=== PATIENT | male | born 1960 | race Caucasian/White ===

== ENCOUNTER 2017-10-28 20:21 | Observation (INO) | payer SELFPAY ==
[2017-10-28] MEDS ORDERED: METOPROLOL TAR 25 MG TAB ONE (20:53)
[2017-10-28] MEDS ORDERED: ASPIRIN 81 MG CHEWABLE TABLET ONE (20:53)
[2017-10-28] MEDS ORDERED: ENOXAPARIN 80 MG/0.8 ML SQ ONE (20:54)
[2017-10-28] MEDS ORDERED: GLUCAGON 1 MG/VIAL IM PRN (20:54)
[2017-10-28] MEDS ORDERED: D50W 25 GM/50 ML SYRINGE IV PRN (20:54)
[2017-10-28] MEDS ORDERED: NA CHLORIDE 0.9% 1,000 ML ONE (20:54)
[2017-10-28 20:57] LABS: Absolute Lymphocytes (CBC) 2.1 K/uL (0.7-4.9); Absolute Neutrophil 7.6 K/uL (1.8-8.0); Basophils % 0.9 % (0-1.3); Eosinophils % 0.6 % (0-4.4); Hematocrit 45.5 % (39.6-49.0); Lymphocytes % 19.2 % (15.3-44.8); MCH 31.5 pg (27.0-35.0); MCV 90.2 fL (80-100); MPV 9.4 fL (7.6-11.3); Monocytes % 9.1 % (3.3-12.3); RBC Red Blood Cell Count 5.04 M/uL (4.33-5.43)
[2017-10-28] MEDS ORDERED: INSULIN -REGULAR HUMAN 50 UNIT/0.5 ML ML SQ SCH (21:00)
[2017-10-28 21:02] LABS: Protime INR 1.01
[2017-10-28] MEDS ORDERED: LISINOPRIL 10 MG TAB ONE (21:02)
[2017-10-28] MEDS ORDERED: FAMOTIDINE 20 MG/2 ML VIAL IV ONE (21:02)
[2017-10-28 21:21] LABS: Albumin 3.9 g/dL (3.4-5.0); Bilirubin Direct 0.1 mg/dL (0-0.2); Bilirubin Total 0.3 mg/dL (0.2-1.0); Magnesium 2.3 mg/dL (1.8-2.4); Potassium 3.8 mmol/L (3.5-5.1); Protein, Total 7.7 g/dL (6.4-8.2); Troponin (Emerg Dept Use Only) 0.03 ng/mL (0.0-0.045)
--- NOTE | 2017-10-28 21:52 | ER ---
Nurse's Notes [facility] Unit Name: Lincoln Espinal Age: 57 yrs Sex: Male : 1960 Arrival Date: 10/28/2017 Time: 20:33 Bed 6 Private MD: Diagnosis: Type 1 diabetes mellitus;Essential (primary) hypertension;Chest pain, unspecified Presentation: 10/28 20:33 Presenting complaint: Patient states: low blood sugar, chest pain, left arm pain and ak1 neck cramps X2 weeks. pt sees Dr. Ferreira. pt stated he eats every 2 hours but does not check his blood sugar. pt stated he takes his insulin at 0400 and 1600 daily. Transition of care: patient was not received from another setting of care. Onset of symptoms is unknown. Risk Assessment: Do you want to hurt yourself or someone else? Patient reports no desire to harm self or others. Initial Sepsis Screen: Does the patient meet any 2 criteria? No. Patient's initial sepsis screen is negative. Does the patient have a suspected source of infection? No. Patient's initial sepsis screen is negative. Care prior to arrival: None. 20:33 Method Of Arrival: EMS: [facility] ak1 20:33 Acuity: KULDIP 3 ak1 Triage Assessment: 20:36 General: Appears in no apparent distress. Behavior is calm, cooperative. Pain: ak1 Complains of pain in chest and left arm. EENT: No signs and/or symptoms were reported regarding the EENT system. Neuro: Level of Consciousness is awake, alert, obeys commands, Oriented to person, place, time, situation, Synoptic Meteorologist are equal bilaterally Moves all extremities. Gait is steady, Speech is normal. Cardiovascular: Reports chest pain, Denies nausea, vomiting. Respiratory: No deficits noted. GI: No signs and/or symptoms were reported involving the gastrointestinal system. : No signs and/or symptoms were reported regarding the genitourinary system. Derm: No signs and/or symptoms reported regarding the dermatologic system. Musculoskeletal: Reports pain in neck, left arm, chest. Historical: - Allergies: 20:36 No Known Allergies; ak1 - Home Meds: 21:09 Novolin 70/30 [place] 20 units at 0400 and 10 units 1600 daily Sub-Q [Active]; mw - PMHx: 21:09 Diabetes - IDDM; Hypertension; Hepatitis; - PSHx: 21:09 Tonsillectomy; Hernia repair; - Immunization history:: Adult Immunizations unknown. - Social history:: Smoking status: unknown Patient uses street drugs, marijuana. - Ebola Screening: : No symptoms or risks identified at this time. - Family history:: not pertinent. Screenin:40 Abuse screen: Denies threats or abuse. Denies injuries from another. Nutritional ak1 screening: No deficits noted. Tuberculosis screening: No symptoms or risk factors identified. Fall Risk None identified. Assessment: 20:38 Reassessment: Patient appears in no apparent distress at this time. see triage ak1 assessment. Pain: Denies pain. Pain radiates to left arm and chest Pain began 2 weeks. 21:10 Reassessment: Patient appears in no apparent distress at this time. No changes from previously documented assessment. Patient and/or family updated on plan of care and expected duration. Pain level reassessed. Patient is alert, oriented x 3, equal unlabored respirations, skin warm/dry/pink. Patient states feeling better. pt denies pain at this time. . 21:44 Reassessment: Patient appears in no apparent distress at this time. No changes from ak1 previously documented assessment. Patient and/or family updated on plan of care and expected duration. Pain level reassessed. Patient is alert, oriented x 3, equal unlabored respirations, skin warm/dry/pink. dr. witt at the bedside. Vital Signs: 20:36 BP 147 / 103; Pulse 87; Resp 18; Temp 100.3; Pulse Ox 98% on R/A; Weight 78.02 kg (R); ak1 Height 5 ft. 10 in. (177.80 cm) (R); Pain 0/10; 21:47 BP 158 / 95; Pulse 77; Resp 18; Temp 98.5(O); Pulse Ox 97% on R/A; Pain 0/10; ak1 20:36 Body Mass Index 24.68 (78.02 kg, 177.80 cm) ak1 ED Course: 20:33 Patient arrived in ED. rv 20:33 Graciela Lopez, RN is Primary Nurse. ak1 20:35 Randall Sanford MD is Attending Physician. [facility] 20:36 Triage completed. ak1 20:36 Arm band placed on Patient placed on pulse oximetry. EKG completed in triage. Results ak1 shown to MD. 20:39 Initial lab(s) drawn, by me, sent to lab. EKG done, by ED staff. Inserted saline lock: ak1 20 gauge in right antecubital area, using aseptic technique. ,using aseptic technique. placed by EMS. Patient maintains SpO2 saturation greater than 95% on room air. 20:40 Patient has correct armband on for positive identification. Bed in low position. Call ak1 light in reach. Side rails up X2. awake overnight monitor on. Pulse ox on. NIBP on. 20:59 X-ray completed. Portable x-ray completed in exam room. Patient tolerated procedure az well. 21:03 XRAY Chest (1 view) In Process Unspecified. EDMS 21:09 No provider procedures requiring assistance completed. mw 21:49 Patient admitted, IV remains in place. ak1 21:51 Maya Roca MD is Hospitalizing Provider. yuni Administered Medications: 20:53 Drug: NS 0.9% 500 ml Route: IV; Rate: bolus; Site: right antecubital; ak1 21:44 Follow up: IV Status: Completed infusion ak1 20:54 Drug: Aspirin Chewable Tablet 324 mg Route: PO; ak1 21:16 Follow up: Response: No adverse reaction ak1 20:54 Drug: Lopressor 25 mg Route: PO; ak1 21:16 Follow up: Response: No adverse reaction ak1 20:54 Drug: Lovenox 1 mg/kg Route: Sub-Q; Site: right lower abdomen; ak1 21:17 Follow up: Response: No adverse reaction ak1 21:00 Drug: Lisinopril 10 mg Route: PO; ak1 21:16 Follow up: Response: No adverse reaction ak1 21:01 Drug: Pepcid 20 mg Route: IVP; Site: right antecubital; ak1 21:17 Follow up: Response: No adverse reaction ak1 21:44 Drug: NS 0.9% 1000 ml Route: IV; Rate: 125 ml/hr; Site: right antecubital; ak1 22:16 Follow up: IV Status: Infusion continued upon admission ak1 Point of Care Testing: Blood Glucose: 20:39 Blood Glucose: 251 mg/dL; ak1 Ranges: Outcome: 21:49 Admitted to [facility] accompanied by tech, via wheelchair, with chart. ak1 21:49 Condition: stable 21:49 Instructed on the need for admit. 21:51 Decision to Hospitalize by Provider. yuni 22:36 Patient left the ED. ak1 Signatures: Dispatcher [employer] EDMS Ariana Lopez RN Randall Taylor MD MD cha Krenek, Amber, RN RN ak1 Shon Fox RN RN rv Zavala, Araceli az
--- NOTE | 2017-10-28 21:52 | RAD REPORT ---
EXAM DESCRIPTION: RAD - Chest Single View - 10/28/2017 9:03 pm CLINICAL HISTORY: Chest pain COMPARISON: April 2011 TECHNIQUE: AP portable chest image was obtained 4 hours . FINDINGS: Lungs are clear. Heart and vasculature are normal. No measurable pleural effusion and no p neumothorax. No gross bony abnormality seen. No acute aortic findings suspected. IMPRESSION: No acute cardiopulmonary process. No significant interval change.
--- NOTE | 2017-10-28 21:52 | EDPHYS ---
Physician Documentation [facility] Name: Lincoln Espinal Age: 57 yrs Sex: Male : 1960 Arrival Date: 10/28/2017 Time: 20:33 Bed 6 Private MD: ED Physician Randall Sanford HPI: 10/28 20:46 This 57 yrs old Male presents to ER via EMS with complaints of Chest Pain. [facility] 20:46 The patient or guardian reports chest pain that is located primarily in the anterior [facility] chest wall. Onset: just prior to arrival. The pain radiates to left arm. Associated signs and symptoms: The patient has no apparent associated signs or symptoms. The chest pain is described as squeezing. Duration: The patient or guardian reports multiple episodes, that have now resolved, with no pattern. Modifying factors: The symptoms are alleviated by nothing. the symptoms are aggravated by nothing. Severity of pain: At its worst the pain was mild moderate in the emergency department the pain has resolved. The patient has not experienced similar symptoms in the past. Historical: - Allergies: 20:36 No Known Allergies; ak1 - Home Meds: 21:09 Novolin 70/30 [place] 20 units at 0400 and 10 units 1600 daily Sub-Q [Active]; mw - PMHx: 21:09 Diabetes - IDDM; Hypertension; Hepatitis; mw - PSHx: 21:09 Tonsillectomy; Hernia repair; mw - Immunization history:: Adult Immunizations unknown. - Social history:: Smoking status: unknown Patient uses street drugs, marijuana. - Ebola Screening: : No symptoms or risks identified at this time. - Family history:: not pertinent. ROS: 20:46 Constitutional: Negative for fever, chills, and weight loss, Eyes: Negative for injury, yuni pain, redness, and discharge, ENT: Negative for injury, pain, and discharge, Neck: Negative for injury, pain, and swelling, Respiratory: Negative for shortness of breath, cough, wheezing, and pleuritic chest pain, Abdomen/GI: Negative for abdominal pain, nausea, vomiting, diarrhea, and constipation, Back: Negative for injury and pain, : Negative for injury, bleeding, discharge, and swelling, MS/Extremity: Negative for injury and deformity, Skin: Negative for injury, rash, and discoloration, Neuro: Negative for headache, weakness, numbness, tingling, and seizure, Psych: Negative for depression, anxiety, suicide ideation, homicidal ideation, and hallucinations, Allergy/Immunology: Negative for hives, rash, and allergies, Endocrine: Negative for neck swelling, polydipsia, polyuria, polyphagia, and marked weight changes, Hematologic/Lymphatic: Negative for swollen nodes, abnormal bleeding, and unusual bruising. 20:46 Cardiovascular: Positive for chest pain. Exam: 20:46 Constitutional: This is a well developed, well nourished patient who is awake, alert, yuni and in no acute distress. Head/Face: Normocephalic, atraumatic. Eyes: Pupils equal round and reactive to light, extra-ocular motions intact. Lids and lashes normal. Conjunctiva and sclera are non-icteric and not injected. Cornea within normal limits. Periorbital areas with no swelling, redness, or edema. ENT: Nares patent. No nasal discharge, no septal abnormalities noted. Tympanic membranes are normal and external auditory canals are clear. Oropharynx with no redness, swelling, or masses, exudates, or evidence of obstruction, uvula midline. Mucous membranes moist. Neck: Trachea midline, no thyromegaly or masses palpated, and no cervical lymphadenopathy. Supple, full range of motion without nuchal rigidity, or vertebral point tenderness. No Meningismus. Chest/axilla: Normal chest wall appearance and motion. Nontender with no deformity. No lesions are appreciated. Cardiovascular: Regular rate and rhythm with a normal S1 and S2. No gallops, murmurs, or rubs. Normal PMI, no JVD. No pulse deficits. Respiratory: Lungs have equal breath sounds bilaterally, clear to auscultation and percussion. No rales, rhonchi or wheezes noted. No increased work of breathing, no retractions or nasal flaring. Abdomen/GI: Soft, non-tender, with normal bowel sounds. No distension or tympany. No guarding or rebound. No evidence of tenderness throughout. Back: No spinal tenderness. No costovertebral tenderness. Full range of motion. Male : Normal genitalia with no discharge or lesions. Skin: Warm, dry with normal turgor. Normal color with no rashes, no lesions, and no evidence of cellulitis. MS/ Extremity: Pulses equal, no cyanosis. Neurovascular intact. Full, normal range of motion. Neuro: Awake and alert, GCS 15, oriented to person, place, time, and situation. Cranial nerves II-XII grossly intact. Motor strength 5/5 in all extremities. Sensory grossly intact. Cerebellar exam normal. Normal gait. Psych: Awake, alert, with orientation to person, place and time. Behavior, mood, and affect are within normal limits. Vital Signs: 20:36 BP 147 / 103; Pulse 87; Resp 18; Temp 100.3; Pulse Ox 98% on R/A; Weight 78.02 kg (R); ak1 Height 5 ft. 10 in. (177.80 cm) (R); Pain 0/10; 21:47 BP 158 / 95; Pulse 77; Resp 18; Temp 98.5(O); Pulse Ox 97% on R/A; Pain 0/10; ak1 20:36 Body Mass Index 24.68 (78.02 kg, 177.80 cm) ak1 MDM: 20:35 Patient medically screened. [facility] 20:48 Data reviewed: vital signs, lab test result(s), EKG, radiologic studies, plain films. [facility] 10/28 20:35 Order name: Basic Metabolic Panel; Complete Time: 21:22 [facility] 10/28 20:35 Order name: CBC with Diff; Complete Time: 21:09 [facility] 10/28 20:35 Order name: LFT's; Complete Time: 21:22 [facility] 10/28 20:35 Order name: Magnesium; Complete Time: 21:22 [facility] 10/28 20:35 Order name: NT PRO-BNP; Complete Time: 21:22 [facility] 10/28 20:35 Order name: PT-INR; Complete Time: 21:09 [facility] 10/28 20:35 Order name: Troponin (emerg Dept Use Only); Complete Time: 21:22 [facility] 10/28 20:35 Order name: Lipase; Complete Time: 21:22 [facility] 10/28 20:35 Order name: UDS [facility] 10/28 20:46 Order name: Blood Culture Adult (2) [facility] 10/28 20:46 Order name: Flu [facility] 10/28 20:46 Order name: Urine Culture [facility] 10/28 22:07 Order name: Urine Dipstick--Ancillary (enter results) mw2 10/28 22:10 Order name: Urine Dipstick-Ancillary EDMS 10/28 20:35 Order name: XRAY Chest (1 view) [facility] 10/28 20:35 Order name: EKG; Complete Time: 20:36 [facility] 10/28 20:35 Order name: Cardiac monitoring; Complete Time: 20:55 [facility] 10/28 20:35 Order name: EKG - Nurse/Tech; Complete Time: 20:39 [facility] 10/28 20:35 Order name: IV Saline Lock; Complete Time: 20:39 [facility] 10/28 20:35 Order name: Labs collected and sent; Complete Time: 20:39 [facility] 10/28 20:35 Order name: O2 Per Protocol; Complete Time: 20:39 [facility] 10/28 20:35 Order name: O2 Sat Monitoring; Complete Time: 20:39 [facility] 10/28 20:55 Order name: CONS Physician Consult EDMS Administered Medications: 20:53 Drug: NS 0.9% 500 ml Route: IV; Rate: bolus; Site: right antecubital; ak1 21:44 Follow up: IV Status: Completed infusion ak1 20:54 Drug: Aspirin Chewable Tablet 324 mg Route: PO; ak1 21:16 Follow up: Response: No adverse reaction ak1 20:54 Drug: Lopressor 25 mg Route: PO; ak1 21:16 Follow up: Response: No adverse reaction ak1 20:54 Drug: Lovenox 1 mg/kg Route: Sub-Q; Site: right lower abdomen; ak1 21:17 Follow up: Response: No adverse reaction ak1 21:00 Drug: Lisinopril 10 mg Route: PO; ak1 21:16 Follow up: Response: No adverse reaction ak1 21:01 Drug: Pepcid 20 mg Route: IVP; Site: right antecubital; ak1 21:17 Follow up: Response: No adverse reaction ak1 21:44 Drug: NS 0.9% 1000 ml Route: IV; Rate: 125 ml/hr; Site: right antecubital; ak1 22:16 Follow up: IV Status: Infusion continued upon admission ak1 Point of Care Testing: Blood Glucose: 20:39 Blood Glucose: 251 mg/dL; ak1 Ranges: Critical Glucose Levels:Adult <50 mg/dl or >400 mg/dl <40 mg/dl or >180 mg/dl Disposition: 10/28/17 21:51 Hospitalization ordered by Maya Roca for Observation. Preliminary diagnosis are Type 1 diabetes mellitus, Essential (primary) hypertension, Chest pain, unspecified. - Bed requested for Telemetry/MedSurg (observation). - Status is Observation. ak1 - Condition is Fair. - Problem is new. - Symptoms have improved. UTI on Admission? No Signatures: Dispatcher [employer] EDMS Ariana Lopez RN CAROLA Sanford, MD MD yuni Pereira Amber, RN RN ak1 [place] LakshmiCandie mw2 Corrections: (The following items were deleted from the chart) 22:00 21:51 Hospitalization Ordered by Maya Roca MD for Observation. Preliminary mw2 diagnosis is Type 1 diabetes mellitus; Essential (primary) hypertension; Chest pain, unspecified. Bed requested for Telemetry/MedSurg (observation). Status is Observation. Condition is Fair. Problem is new. Symptoms have improved. UTI on Admission? No. yuni 22:36 22:00 10/28/2017 21:51 Hospitalization Ordered by Maya Roca MD for Observation. ak1 Preliminary diagnosis is Type 1 diabetes mellitus; Essential (primary) hypertension; Chest pain, unspecified. Bed requested for Telemetry/MedSurg (observation). Status is Observation. Condition is Fair. Problem is new. Symptoms have improved. UTI on Admission? No. mw2
--- NOTE | 2017-10-28 22:02 | P.HP ---
Certification for Inpatient Patient admitted to: Observation With expected LOS: <2 Midnights Practitioner: I am a practitioner with admitting privileges, knowledge of patient current condition, hospital course, and medical plan of care. Services: Services provided to patient in accordance with Admission requirements found in Title 42 Section 412.3 of the Code of Federal Regulations Patient History Date of Service: 10/28/17 Reason for admission: Chest pain History of Present Illness: Mr Espinal is a 57-year-old male with history of IDDM, hypertension, who this afternoon when he was mowing his yard start feeling substernal chest pain, radiated to his left and neck. He states that it was a tightness pain in his chest. He denied any nausea, vomiting, shortness of breath or dizziness associated with the pain. Intensity was 1-2/10. At the time of my encounter, the patient was chest pain-free. Initial troponin I is negative, EKG shows nonspecific ST-T abnormalities. Allergies No Known Allergies Allergy (Unverified 05/03/11 15:04) Home medications list reviewed: Yes - Past Medical/Surgical History -: Hypertension -: IDDM -: Tonsillectomy -: Hernia repair - Family History Family History: Reviewed- Non-Contributory - Social History Smoking Status: Never smoker Alcohol use: No CD- Drugs: Yes Place of Residence: Home Review of Systems 10-point ROS is otherwise unremarkable Physical Examination - Physical Exam General: Alert, In no apparent distress HEENT: Atraumatic, PERRLA, Mucous membr. moist/pink, EOMI, Sclerae nonicteric Neck: Supple, 2+ carotid pulse no bruit, No LAD, Without JVD or thyroid abnormality Respiratory: Clear to auscultation bilaterally, Normal air movement Cardiovascular: Regular rate/rhythm, Normal S1 S2 Gastrointestinal: Normal bowel sounds, No tenderness Musculoskeletal: No tenderness Integumentary: No rashes Neurological: Normal speech, Normal strength at 5/5 x4 extr, Normal tone, Normal affect Lymphatics: No axilla or inguinal lymphadenopathy - Studies Laboratory Data (last 24 hrs) 10/28/17 20:28: PT 11.9, INR 1.01 10/28/17 20:28: WBC 10.8, Hgb 15.9, Hct 45.5, Plt Count 315 10/28/17 20:28: Sodium 139, Potassium 3.8, BUN 21 H, Creatinine 1.00, Glucose 262 H, Magnesium 2.3, Total Bilirubin 0.3, AST 28, ALT 55, Alkaline Phosphatase 87, Lipase 163 Assessment and Plan - Plan Assessment: 1. Chest pain 2. IDDM 3. Hypertension Plan: Will admit the patient to the hospital under observation due to chest pain in order to rule out acute coronary syndrome. So far initial troponin I is negative, EKG shows nonspecific ST segment abnormality. Will order echo, lipid profile, aspirin, beta-johnathan to control his blood pressure, serial cardiac enzymes and EKG. Consult Cardiology for evaluation and recommendation - Advance Directives Does patient have a Living Will: No Does patient have a Durable POA for Healthcare: No - Code Status/Comfort Care Code Status Assessed: Yes Code Status: Full Code
[2017-10-28 22:10] LABS: Urine Blood NEGATIVE (NEG); Urine Glucose TRACE (NEG); Urine Protein 1+ (NEG); Urine Specific Gravity >1.030 (1.005-1.030)
[2017-10-28] MEDS ORDERED: ACETAMINOPHEN 500 MG TAB PO PRN (22:19)
[2017-10-28 22:33] LABS: Barbiturates NEGATIVE (NEGATIVE); Benzodiazepines NEGATIVE (NEGATIVE); Cocaine NEGATIVE (NEGATIVE); METHAMPHETAM NEGATIVE (NEGATIVE); Methadone NEGATIVE (NEGATIVE); Opiates NEGATIVE (NEGATIVE); Phencyclidine NEGATIVE (NEGATIVE); THC Cannibis POSITIVE (NEGATIVE)
[2017-10-28 22:46] VITALS: TEMP 98.5; O2SAT 97
[2017-10-29] MEDS ORDERED: ALPRAZOLAM 0.25 MG TABLET PO ONE
[2017-10-29 00:12] VITALS: BMI 25.0
[2017-10-29] MEDS: INSULIN -REGULAR HUMAN 50 UNIT/0.5 ML ML SQ SCH ×3 (06:00→12:00)
[2017-10-29 06:59] LABS: Troponin I 0.03 ng/mL (0.0-0.045)
[2017-10-29] MEDS ORDERED: INSULIN GLARGINE 100 UNITS/ML SQ SCH (08:00)
[2017-10-29] MEDS ORDERED: ENOXAPARIN 40 MG/0.4 ML SQ SCH (09:00)
[2017-10-29] MEDS ORDERED: METOPROLOL TAR 50 MG TAB PO SCH (09:00)
[2017-10-29] MEDS ORDERED: ASPIRIN EC 81 MG TAB PO SCH (09:00)
[2017-10-29] MEDS ORDERED: LISINOPRIL 10 MG TAB PO SCH (09:00)
--- NOTE | 2017-10-29 11:49 | EKG ---
Test Date: 2017-10-28 Test Time: 20:30:04 Kiln Cleaner: FLORES MEASUREMENT RESULTS: Intervals: Rate: 82 AK: 198 QRSD: 88 QT: 364 QTc: 425 [place]: P: 69 AK: 198 QRS: -11 T: 54 INTERPRETIVE STATEMENTS: Normal sinus rhythm Possible Left atrial enlargement Anteroseptal infarct, age undetermined Abnormal ECG Compared to ECG 05/03/2011 21:29:21 Myocardial infarct finding now present First degree AV block no longer present Electronically Signed On 10-29-17 11:46:33 CDT by Arnaud Espinoza
[2017-10-29 12:05] VITALS: BP 145/91
--- NOTE | 2017-10-29 12:30 | P.DS ---
Admission Date: 10/28/17 Discharge Date: 10/29/17 Primary Care Provider: Dr. Ferreira Disposition: ROUTINE DISCHARGE Discharge Condition: GOOD Reason for Admission: Chest pain Consultations: Cardiology: Dr. Espinoza Procedures: Cardiac Stress test: COMPARISON: None. TECHNIQUE: The patient was administered 10.8 mCi of Tc 99m Sestamibi prior to resting SPECT imaging of the heart. The patient was then administered 31.1 mCi of Tc 99m Sestamibi following exercise or pharmacologic stress. Multiplanar SPECT images were reviewed. FINDINGS: The end diastolic volume is 108 ml, the end systolic volume is 47 ml , and the ejection fraction is 57 %. No stress-induced ischemia is identifiable. Patient has a large fixed defect along the inferior wall extending into the septum. This does not change between rest and stress imaging. This may be in part due to attenuation artifact from the diaphragm. Scarring is suspected for most of this defect. IMPRESSION: No stress-induced ischemia. Large fixed defect along the inferior wall and inferoseptal wall. This is probably a combination of scarring and diaphragm attenuation. End-diastolic volume is only minimally enlarged at 108 milliliters. Ejection fraction is normal at 57%. Medical Problem List: Chest pain HTN, uncontrolled, new diagnosis DM Type 2, insulin dependent Hyperlipidemia THC use GERD, suspected Brief History of Present Illness: 57 yo CM presented to the ER with chest pain. He was found to have elevated BP. He was admitted for further evaluation. Hospital Course: Patient presented to the ER with chest pain. He was found to have elevated BP. Cardiac enzymes remained normal. Patient was evaluated by Cardiology. ECHO and Cardiac stress test performed. Cardiac stress test did not indicate any stress induced ischemia. No further cardiac intervention was required. At discharge he will continue with ASA 81 mg daily. Recommendation is for the patient to follow up with his PCP to further address. His Chest pain maybe related to uncontrolled HTN. He was not taking medication for this. He was started on medication. His BP improved. At discharge he will continue with Lisinopril 20 mg one pill once daily and Metoprolol 25 mg one pill twice daily. Recommendation is to maintain BP less than 150/80. Further adjustment in medication may be required by his PCP. Patient has DM. He is insulin dependent. At discharge, he will continue with his medication-Insulin 70/30 20 units sc every am and 10 units sc every pm. Recommendation is to maintain BS less than 140 fasting and less than 200 after meals. Further adjustment may be addressed by his PCP. Patient likely has GERD. At discharge, he will continue with Protonix 40 mg one pill daily. Recommendation is for the patient to see GI as outpatient to further address. Patient admits to THC use. Cessation was addressed. He plans to cut down on this. Patient has mild Hyperlipidemia. He will need to continue with dietary and lifestyle modifications. This will need to be monitored and addressed by his PCP. Patient may require medication in the future. Vital Signs/Physical Exam: Temp Pulse Resp BP Pulse Ox 98.5 F 61 18 145/91 H 97 10/29/17 04:00 10/29/17 12:02 10/29/17 04:00 10/29/17 12:02 10/29/17 04:00 General: Alert, In no apparent distress, Oriented x3, Cooperative HEENT: Atraumatic, Mucous membr. moist/pink Neck: Supple, No Thyromegaly Respiratory: Clear to auscultation bilaterally, Normal air movement Cardiovascular: Normal pulses, Regular rate/rhythm Gastrointestinal: Normal bowel sounds, Soft and benign, Non-distended, No tenderness, No masses, No rebound, No guarding Musculoskeletal: No erythema, No tenderness, No warmth Integumentary: No tenderness/swelling, No erythema, No warmth, No cyanosis Neurological: Normal speech, Normal strength at 5/5 x4 extr, Normal tone, Normal affect Lymphatics: No axilla or inguinal lymphadenopathy Laboratory Data at Discharge: WBC 10.8 K/uL (4.3-10.9) 10/28/17 20:28 Hgb 15.9 g/dL (13.6-17.9) 10/28/17 20:28 Hct 45.5 % (39.6-49.0) 10/28/17 20:28 Plt Count 315 K/uL (152-406) 10/28/17 20:28 PT 11.9 SECONDS (9.5-12.5) 10/28/17 20:28 INR 1.01 10/28/17 20:28 Sodium 139 mmol/L (136-145) 10/28/17 20:28 Potassium 3.8 mmol/L (3.5-5.1) 10/28/17 20:28 BUN 21 mg/dL (7-18) H 10/28/17 20:28 Creatinine 1.00 mg/dL (0.55-1.3) 10/28/17 20:28 Glucose 262 mg/dL (74-106) H 10/28/17 20:28 Magnesium 2.3 mg/dL (1.8-2.4) 10/28/17 20:28 Total Bilirubin 0.3 mg/dL (0.2-1.0) 10/28/17 20:28 AST 28 U/L (15-37) 10/28/17 20:28 ALT 55 U/L (12-78) 10/28/17 20:28 Alkaline Phosphatase 87 U/L (45-117) 10/28/17 20:28 Troponin I 0.03 ng/mL (0.0-0.045) 10/29/17 06:13 Triglycerides 111 mg/dL (<150) 10/29/17 06:13 Cholesterol 147 mg/dL (<200) 10/29/17 06:13 HDL Cholesterol 28 mg/dL (40-60) L 10/29/17 06:13 Cholesterol/HDL Ratio 5.25 10/29/17 06:13 Lipase 163 U/L (73-393) 10/28/17 20:28 Home Medications: Insulin 70/30 NPH/Reg Human [Novolin 70/30*] 10 units SQ 1800 10/28/17 Insulin 70/30 NPH/Reg Human [Novolin 70/30*] 20 units SQ 0600 10/28/17 Patient Discharge Instructions: 1. Patient will need to follow up with his PCP in one week to follow up this hospitalization. 2. Patient presented to the ER with chest pain. He was found to have elevated BP. Cardiac enzymes remained normal. Patient was evaluated by Cardiology. ECHO and Cardiac stress test performed. Cardiac stress test did not indicate any stress induced ischemia. No further cardiac intervention was required. At discharge he will continue with ASA 81 mg daily. Recommendation is for the patient to follow up with his PCP to further address. 3. His Chest pain maybe related to uncontrolled HTN. He was not taking medication for this. He was started on medication. His BP improved. At discharge he will continue with Lisinopril 20 mg one pill once daily and Metoprolol 25 mg one pill twice daily. Recommendation is to maintain BP less than 150/80. Further adjustment in medication may be required by his PCP. 4. Patient has DM. He is insulin dependent. At discharge, he will continue with his medication-Insulin 70/30 20 units sc every am and 10 units sc every pm. Recommendation is to maintain BS less than 140 fasting and less than 200 after meals. Further adjustment may be addressed by his PCP. 5. Patient likely has GERD. At discharge, he will continue with Protonix 40 mg one pill daily. Recommendation is for the patient to see GI as outpatient to further address. 6. Patient admits to THC use. Cessation was addressed. He plans to cut down on this. 7. Patient has mild Hyperlipidemia. He will need to continue with dietary and lifestyle modifications. This will need to be monitored and addressed by his PCP. Patient may require medication in the future. Diet: AHA Activity: Ad neel Time spent managing pt's care (in minutes): 55
--- NOTE | 2017-10-29 13:26 | RAD REPORT ---
EXAM DESCRIPTION: NM - Rest Stress Cardiac Imaging - 10/29/2017 12:19 pm CLINICAL HISTORY: Chest pain COMPARISON: None. TECHNIQUE: The patient was administered 10.8 mCi of Tc 99m Sestamibi prior to resting SPECT imaging of the heart. The patient was then administered 31.1 mCi of Tc 99m Sestamibi following exercise or ph armacologic stress. Multiplanar SPECT images were reviewed. FINDINGS: The end diastolic volume is 108 ml, the end systolic volume is 47 ml, and the ejection fra ction is 57 %. No stress-induced ischemia is identifiable. Patient has a large fixed defect along the inferior wall extending into the septum. This does not change between rest and stress imaging. This may be in part due to attenuation artifact from the diaphragm. Scarring is suspected for most of this defect. IMPRESSION: No stress-induced ischemia. Large fixed defect along the inferior wall and inferoseptal wall. This is probably a combination of s carring and diaphragm attenuation. End-diastolic volume is only minimally enlarged at 108 milliliters. Ejection fraction is normal at 57 %.
--- NOTE | 2017-10-29 14:23 | TREADMILL ---
70% H.R.: 113 85% H.R.: 137 90% H.R.: 145 100% H.R.: 161 DX: CHEST PAIN Date of Study: 10/29/17 Ht: 5 10 Wt: 174 lb 1.6 oz Consulting Physician: GRACE MEDICATIONS: NONE HISTORY: 57 YEAR OLD MALE WITH COMPLAINTS OF CHEST PAIN. MEDICAL HISTORY OF DIABETES, HYPERTENSION, HEPATITIS C. PHYSICIAL EXAMINATION: RESTING B.P.: 158/97 RESTING H.R.: 67 RESTING EKG: SINUS RHYTHM, OLD SEPTAL MYOCARDIAL INFARCTION. PROTOCOL: KAI CARDIOLITE EXERCISE TIME: 10:46 MAXIMUM HEART RATE: 146 90 % OF PREDICTED B.P. AT PEAK STRESS: 181/86 155/89 H.R. AT 1 MINUTE POST EXERCISE: 107 IMPRESSION: KAI CARDIOLITE STRESS STOPPED DUE TO FATIGUE AND TARGET HEART RATE REACHED, CARDIOLITE INJECTED PER PROTOCOL. SEE NUCLEAR MEDICINE REPORT. NO SUPRA VENTRICULAR TACHYCARDIA, NO VENTRICULAR TACHYCARDIA, NO PREMATURE VENTRICULAR COMPLEXES. DENIED CHEST PAIN.
[2017-10-29] MEDS ORDERED: ATORVASTATIN 10 MG TAB PO SCH (21:00)
[2017-10-29] MEDS ORDERED: METOPROLOL TAR 25 MG TAB PO SCH (21:00)
[2017-10-30] MEDS ORDERED: PANTOPRAZOLE 40MG TABLET PO SCH (06:30)
--- NOTE | 2017-10-30 07:42 | CON ---
Date of Consultation: 10/29/[address] Silva on 10/28/2017. Seen on 10/29/2017. Reason For Consultation: Chest pain. History Of Present Illness: Mr. Espinal is 57, has no previous past medical history except for diabe virgil, for which he takes insulin. Came in with a sharp stabbing chest pain. No nausea, vomiting, nidhi phoresis, PND, orthopnea, pedal edema, palpitations, or syncope. He was hypertensive. Blood work wa s positive for a glucose of 262. Otherwise, negative troponin. Normal EKG and chest x-ray. Past Medical History: As stated above. Allergies: NONE. Review of Systems: Negative. Social History: Negative. Family History: Negative. Medications: Include insulin. Physical Examination: Vital Signs: Are stable. Afebrile. HEENT: Negative. Neck: Supple, no bruit. Chest: Clear. Cardiac: Exam revealed a regular rhythm and rate. No murmurs, gallops, or rubs. Abdomen: Benign. Extremities: Revealed no clubbing, cyanosis, or edema. Diagnostic Data: Normal. Impression And Plan: Atypical chest pain in a diabetic, probably musculoskeletal. An echocardiogram and Lexiscan are pending. We will see what those shows prior to making final decisions. ANNIE/PHONG Voice ID: [id number] Report ID: [id number]
[2017-10-30] MEDS ORDERED: LISINOPRIL 20 MG TAB PO SCH (09:00)
--- NOTE | 2017-10-31 08:11 | ECHO ---
HEIGHT: 5 ft 10 in WEIGHT: 174 lb 1.6 oz DATE OF STUDY: 10/29/[address]: Maya Silva MD 2-DIMENSIONAL: YES M.MODE: YES DOPPLER: YES COLOR FLOW: YES TDS: PORTABLE: DEFINITY: BUBBLE STUDY: DIAGNOSIS: CHEST PAIN CARDIAC HISTORY: CATHERIZATION: NO SURGERY: NO PROSTHETIC VALVE: NO PACEMAKER: NO MEASUREMENTS (cm) DIASTOLIC (NORMALS) SYSTOLIC (NORMALS) IVSd 1.0 (0.6-1.2) LA Diam 3.7 (1.9-4.0) LVEF 53% LVIDd 5.4 (3.5-5.7) LVIDs 39 (2.0-3.5) %FS 28% LVPWd 1.0 (0.6-1.2) Ao Diam 3.1 (2.0-3.7) 2 DIMENSIONAL ASSESSMENT: RIGHT ATRIUM: NORMAL LEFT ATRIUM: NORMAL RIGHT VENTRICLE: NORMAL LEFT VENTRICLE: NORMAL TRICUSPID VALVE: NORMAL MITRAL VALVE: NORMAL PULMONIC VALVE: NORMAL AORTIC VALVE: NORMAL PERICARDIAL EFFUSION: NONE AORTIC ROOT: NORMAL LEFT VENTRICULAR WALL MOTION: NORMAL DOPPLER/COLOR FLOW: NORMAL COMMENTS: NORMAL 2-DIMENSIONAL ECHOCARDIOGRAM WITH DOPPLER. TECHNOLOGIST: DENITA BOWEN
== END 2017-10-29 15:14 | disposition home or self-care (01) ==
LOC: ER 20:21 → ERHOLD 20:53 → 2ND 22:01
PROVIDERS: ADMIT Internal Medicine; ATTEND Internal Medicine
DX: R07.9 Chest pain, unspecified (principal); I10 Essential (primary) hypertension; E11.9 Type 2 diabetes mellitus without complications; E78.5 Hyperlipidemia, unspecified; F12.90 Cannabis use, unspecified, uncomplicated
CPT/HCPCS: 36415; 71045; 78452; 80048; 80061; 80076; 80307; 81003; 82962; 83036; 83690; 83735; 83880; 84443; 84484; 85025; 85610; 87040; 87086; 87088; 87804; 93005; 93017; 93306; 96361; 96372; 96374; 99285; A9500; G0378; J1650; J7030

== ENCOUNTER 2018-01-30 17:46 | Emergency (ER) | payer SELFPAY ==
--- NOTE | 2018-01-30 18:29 | EDPHYS ---
Physician Documentation [facility] Name: Lincoln Espinal Age: 58 yrs Sex: Male : 1960 Arrival Date: 01/30/2018 Time: 17:48 Bed 16 Private MD: Stephane Ferreira T ED Physician Sergio Combs HPI: 01/30 18:21 This 58 yrs old Male presents to ER via Ambulatory with complaints of High rn Blood Pressure, Dizziness. 18:21 The patient has elevated blood pressure and discovered this at home. rn 18:22 Onset: The symptoms/episode began/occurred today. Modifying factors:. Severity of rn symptoms: At its worst the blood pressure was moderate, in the emergency department the blood pressure is unchanged. The patient has experienced similar episodes in the past. Reports felt lightheaded at home, checked BP, was high, panicked, stayed high, took an extra BP medication and helped but bounced back high. No chest pain/sob/abd pain/syncope/vomiting/diarrhea/headache/focal neuro complaint. . 18:22 Just started on BP meds a few months ago.. rn Historical: - Allergies: 17:54 No Known Allergies; la1 - PMHx: 17:54 Diabetes - IDDM; Hepatitis; Hypertension; la1 - Immunization history:: Adult Immunizations up to date. - Social history:: Smoking status: Patient/guardian denies using tobacco. - Ebola Screening: : No symptoms or risks identified at this time. - Family history:: not pertinent. - Hospitalizations: : No recent hospitalization is reported. ROS: 18:22 Constitutional: Negative for fever, chills, and weight loss, Eyes: Negative for injury, rn pain, redness, and discharge, Neck: Negative for injury, pain, and swelling, Cardiovascular: Negative for chest pain, palpitations, and edema, Respiratory: Negative for shortness of breath, cough, wheezing, and pleuritic chest pain, Abdomen/GI: Negative for abdominal pain, nausea, vomiting, diarrhea, and constipation, MS/Extremity: Negative for injury and deformity, Skin: Negative for injury, rash, and discoloration, Neuro: Negative for headache, numbness, tingling, and seizure. Exam: 18:22 Constitutional: This is a well developed, well nourished patient who is awake, alert, rn and in no acute distress. Appears anxious Head/Face: Normocephalic, atraumatic. Eyes: Pupils equal round and reactive to light, extra-ocular motions intact. Lids and lashes normal. Conjunctiva and sclera are non-icteric and not injected. Cornea within normal limits. Periorbital areas with no swelling, redness, or edema. Neck: Trachea midline, no thyromegaly or masses palpated, and no cervical lymphadenopathy. Supple, full range of motion without nuchal rigidity, or vertebral point tenderness. No Meningismus. Cardiovascular: Regular rate and rhythm with a normal S1 and S2. No gallops, murmurs, or rubs. No JVD. No pulse deficits. Respiratory: Lungs have equal breath sounds bilaterally, clear to auscultation. No increased work of breathing, no retractions or nasal flaring. Abdomen/GI: soft, non-tender MS/ Extremity: Pulses equal, no cyanosis. Neurovascular intact. Full, normal range of motion. Equal circumference. Neuro: Awake and alert, GCS 15, oriented to person, place, time, and situation. Cranial nerves II-XII grossly intact. Motor strength 5/5 in all extremities. Sensory grossly intact. Cerebellar exam normal. Normal gait. Vital Signs: 17:54 BP 174 / 90; Pulse 74; Resp 16; Temp 97.8; Pulse Ox 98% on R/A; Weight 81.65 kg; Height la1 5 ft. 10 in. (177.80 cm); 18:15 BP 193 / 89; Pulse 60; Resp 18; Pulse Ox 100% on R/A; Pain 0/10; mg2 18:15 BP 170 / 70; Pulse 59; Resp 18; Pulse Ox 100% ; Pain 0/10; mg2 17:54 Body Mass Index 25.83 (81.65 kg, 177.80 cm) la1 MDM: 18:00 Patient medically screened. rn 18:22 Differential diagnosis: Malignant HTN. Differential diagnosis: Hypertension, rn uncontrolled. Data reviewed: vital signs, nurses notes. Counseling: I had a detailed discussion with the patient and/or guardian regarding: the historical points, exam findings, and any diagnostic results supporting the discharge/admit diagnosis, the need for outpatient follow up, to return to the emergency department if symptoms worsen or persist or if there are any questions or concerns that arise at home. Response to treatment: the patient's symptoms have mildly improved after treatment. Special discussion: I discussed with the patient/guardian in detail that at this point there is no indication for admission to the hospital. It is understood, however, that if the symptoms persist or worsen the patient needs to return immediately for re-evaluation. ED course: Had long discussion with patient and regarding BP management, in short term and neck pinner and how we manage BP as outpt, at end of discussion offered some blood tests and EKG to rule out end organ damage, patient states wants to go home, feels much better after I explained BP, and states no one ever explained BP management to him, now is comfortable taking his BP diary at home and pcp f/u. Reports feels much better and asymptomatic at this point. . 01/30 18:22 Order name: EKG; Complete Time: 18:23 rn 01/30 18:22 Order name: EKG - Nurse/Tech; Complete Time: 18:23 rn Administered Medications: No medications were administered Disposition: 01/30/18 18:28 Discharged to Home. Impression: Hypertension. - Condition is Stable. - Discharge Instructions: Hypertension. - Medication Reconciliation Form, Thank You Letter, Antibiotic Education, Prescription Opioid Use form. - Follow up: Stephane Ferreira MD; When: As needed; Reason: Recheck today's complaints, Continuance of care, Re-evaluation by your physician. - Problem is an ongoing problem. - Symptoms have improved. Signatures: Sergio Combs MD MD rn Attema, Lee, RN RN la1 Reno Jean Baptiste RN RN mg2 Corrections: (The following items were deleted from the chart) 18:38 18:28 01/30/2018 18:28 Discharged to Home. Impression: Hypertension. Condition is mg2 Stable. Forms are Medication Reconciliation Form, Thank You Letter, Antibiotic Education, Prescription Opioid Use. Follow up: Stephane Ferreira; When: As needed; Reason: Recheck today's complaints, Continuance of care, Re-evaluation by your physician. Problem is an ongoing problem. Symptoms have improved. rn
--- NOTE | 2018-01-30 18:29 | ER ---
Nurse's Notes [facility] Name: Lincoln Espinal Age: 58 yrs Sex: Male : 1960 Arrival Date: 01/30/2018 Time: 17:48 Bed 16 Private MD: Stephane Ferreira T Diagnosis: Hypertension Presentation: 01/30 17:53 Presenting complaint: Patient states: My BP has been running high at home and my head la1 kind of feels numb and dizzy. Transition of care: patient was not received from another setting of care. Onset of symptoms was January 30, 2018. Risk Assessment: Do you want to hurt yourself or someone else? Patient reports no desire to harm self or others. Initial Sepsis Screen: Does the patient meet any 2 criteria? No. Patient's initial sepsis screen is negative. Does the patient have a suspected source of infection? No. Patient's initial sepsis screen is negative. Care prior to arrival: None. 17:53 Method Of Arrival: Ambulatory la1 17:53 Acuity: KULDIP 3 la1 Triage Assessment: 18:36 General: Behavior is calm, cooperative. mg2 Historical: - Allergies: 17:54 No Known Allergies; la1 - PMHx: 17:54 Diabetes - IDDM; Hepatitis; Hypertension; la1 - Immunization history:: Adult Immunizations up to date. - Social history:: Smoking status: Patient/guardian denies using tobacco. - Ebola Screening: : No symptoms or risks identified at this time. - Family history:: not pertinent. - Hospitalizations: : No recent hospitalization is reported. Screenin:29 Abuse screen: Denies threats or abuse. Denies injuries from another. Nutritional mg2 screening: No deficits noted. Tuberculosis screening: No symptoms or risk factors identified. Fall Risk Secondary diagnosis (15 points) dizziness. Assessment: 18:26 General: Appears in no apparent distress. comfortable. Pain: Denies pain. Neuro: Level mg2 of Consciousness is awake, alert, obeys commands, Oriented to person, place, time, situation. Neuro: Reports dizziness. Cardiovascular: Capillary refill < 3 seconds Patient's skin is warm and dry. Respiratory: Airway is patent Respiratory effort is even, unlabored, Respiratory pattern is regular, symmetrical. GI: No signs and/or symptoms were reported involving the gastrointestinal system. : No signs and/or symptoms were reported regarding the genitourinary system. EENT: No signs and/or symptoms were reported regarding the EENT system. Derm: Skin is intact, is healthy with good turgor, Skin is pink, warm \T\ dry. normal. Musculoskeletal: No signs and/or symptoms reported regarding the musculoskeletal system. Vital Signs: 17:54 BP 174 / 90; Pulse 74; Resp 16; Temp 97.8; Pulse Ox 98% on R/A; Weight 81.65 kg; Height la1 5 ft. 10 in. (177.80 cm); 18:15 BP 193 / 89; Pulse 60; Resp 18; Pulse Ox 100% on R/A; Pain 0/10; mg2 18:15 BP 170 / 70; Pulse 59; Resp 18; Pulse Ox 100% ; Pain 0/10; mg2 17:54 Body Mass Index 25.83 (81.65 kg, 177.80 cm) la1 ED Course: 17:48 Patient arrived in ED. mr 17:49 Stephane Ferreira MD is Private Physician. mr 17:54 Triage completed. la1 17:54 Arm band placed on left wrist. la1 18:00 Sergio Combs MD is Attending Physician. rn 18:00 Reno Jean Baptiste, [place] is Primary Nurse. mg2 18:28 Stephane Ferreira MD is Referral Physician. rn 18:29 Patient has correct armband on for positive identification. mg2 18:29 No provider procedures requiring assistance completed. Patient did not have IV access mg2 during this emergency room visit. Administered Medications: No medications were administered Outcome: 18:28 Discharge ordered by . rn 18:36 Discharged to home ambulatory, with family. mg2 18:36 Condition: stable 18:36 Discharge instructions given to Instructed on discharge instructions, follow up and referral plans. Demonstrated understanding of instructions, follow-up care. 18:38 Patient left the ED. mg2 Signatures: Chen Fiore mr Sergio Combs MD MD rn Attema, Lee, RN RN la1 [place] Jean Baptiste RN RN mg2
[2018-01-30 18:44] VITALS: TEMP 97.8
[2018-01-30 18:47] VITALS: BP 170/70; O2SAT 100
--- NOTE | 2018-01-31 16:10 | EKG ---
Test Date: 2018-01-30 Test Time: 18:06:21 Logistics Service Representative: FERN MEASUREMENT RESULTS: Intervals: Rate: 57 DC: 194 QRSD: 96 QT: 426 QTc: 414 [place]: P: 58 DC: 194 QRS: -16 T: 44 INTERPRETIVE STATEMENTS: Sinus bradycardia Septal infarct, age undetermined Abnormal ECG Compared to ECG 10/28/2017 20:30:04 Sinus rhythm no longer present Myocardial infarct finding still present Electronically Signed On 01-31-18 16:09:42 [employer] EX[employer] DIRECTOR by Arnaud Espinoza
== END 2018-01-30 18:38 | disposition home or self-care (01) ==
LOC: ER 17:46
DX: I10 Essential (primary) hypertension (principal)
CPT/HCPCS: 93005; 99281

== ENCOUNTER 2018-06-06 07:47 | Emergency (ER) | payer SELFPAY ==
[2018-06-06 08:31] LABS: Barbiturates NEGATIVE (NEGATIVE); Benzodiazepines NEGATIVE (NEGATIVE); Cocaine NEGATIVE (NEGATIVE); METHAMPHETAM NEGATIVE (NEGATIVE); Methadone NEGATIVE (NEGATIVE); Opiates NEGATIVE (NEGATIVE); Phencyclidine NEGATIVE (NEGATIVE); THC Cannibis POSITIVE (NEGATIVE)
[2018-06-06 08:32] LABS: Absolute Lymphocytes (CBC) 2.9 K/uL (0.7-4.9); Absolute Monocytes 0.9 K/uL (0.1-1.3); Absolute Neutrophil 5.1 K/uL (1.8-8.0); Basophils % 1.9 % (0-1.3); Eosinophils % 5.3 % (0-4.4); Lymphocytes % 30.1 % (15.3-44.8); MPV 8.7 fL (7.6-11.3); Monocytes % 9.4 % (3.3-12.3); RBC Red Blood Cell Count 5.18 M/uL (4.33-5.43)
[2018-06-06 08:39] LABS: Potassium 3.4 mmol/L (3.5-5.1)
[2018-06-06 09:16] LABS: Urine Blood NEGATIVE (NEG); Urine Glucose NEGATIVE (NEG); Urine Protein NEGATIVE (NEG); Urine pH 7.5 (5.0-7.0)
--- NOTE | 2018-06-06 09:22 | EDPHYS ---
Physician Documentation [facility] Name: Lincoln Espinal Age: 58 yrs Sex: Male : 1960 Arrival Date: 06/06/2018 Time: 07:50 Bed 7 Private MD: ED Physician Sergio Combs HPI: 06/06 08:12 This 58 yrs old Male presents to ER via Ambulatory with complaints of Low kb Blood Sugar. 08:12 The patient or guardian reports hypoglycemia. Onset: The symptoms/episode kb began/occurred this morning. Associated signs and symptoms: Pertinent positives: feels shaky, "like my blood sugar is low". Current symptoms: In the emergency department the patient's symptoms are unchanged from the initial presentation. The patient has experienced similar episodes in the past, a few times. The patient has not recently seen a physician. Pt states he woke up, checked his sugar, took his 70/30 insulin and ate. States his sugar dropped to 116 and he can't keep it up. States it feels like it is dropping now. . Historical: - Allergies: 07:57 No Known Allergies; hj - Home Meds: 07:57 Novolin 70/30 [place] 20 units at 0400 and 10 units 1600 daily Sub-Q [Active]; hj - PMHx: 07:57 Diabetes - IDDM; Hepatitis; Hypertension; - PSHx: 07:57 Unable to obtain; - Immunization history:: Adult Immunizations up to date. - Social history:: Smoking status: Patient uses tobacco products, unknown amount. - Ebola Screening: : Patient negative for fever greater than or equal to 101.5 degrees Fahrenheit, and additional compatible Ebola Virus Disease symptoms Patient denies exposure to infectious person Patient denies travel to an Ebola-affected area in the 21 days before illness onset. ROS: 08:09 Constitutional: Negative for fever, chills, and weight loss, Neck: Negative for injury, kb pain, and swelling, Cardiovascular: Negative for chest pain, palpitations, and edema, Respiratory: Negative for shortness of breath, cough, wheezing, and pleuritic chest pain, Abdomen/GI: Negative for abdominal pain, nausea, vomiting, diarrhea, and constipation, MS/Extremity: Negative for injury and deformity, Skin: Negative for injury, rash, and discoloration, Neuro: Negative for headache, weakness, numbness, tingling, and seizure. 08:09 Endocrine: Positive for low blood sugar. Exam: 08:08 Constitutional: This is a well developed, well nourished patient who is awake, alert, kb and in no acute distress. Head/Face: Normocephalic, atraumatic. Chest/axilla: Normal chest wall appearance and motion. Nontender with no deformity. No lesions are appreciated. Cardiovascular: Regular rate and rhythm with a normal S1 and S2. No gallops, murmurs, or rubs. Normal PMI, no JVD. No pulse deficits. Respiratory: Lungs have equal breath sounds bilaterally, clear to auscultation and percussion. No rales, rhonchi or wheezes noted. No increased work of breathing, no retractions or nasal flaring. Abdomen/GI: Soft, non-tender, with normal bowel sounds. No distension or tympany. No guarding or rebound. No evidence of tenderness throughout. Skin: Warm, dry with normal turgor. Normal color with no rashes, no lesions, and no evidence of cellulitis. MS/ Extremity: Pulses equal, no cyanosis. Neurovascular intact. Full, normal range of motion. Neuro: Awake and alert, GCS 15, oriented to person, place, time, and situation. Cranial nerves II-XII grossly intact. Motor strength 5/5 in all extremities. Sensory grossly intact. Cerebellar exam normal. Normal gait. 08:08 ECG was reviewed by the Attending Physician. Vital Signs: 07:58 BP 152 / 81; Pulse 73; Resp 18; Pulse Ox 98% on R/A; Weight 77.11 kg; Height 5 ft. 10 in. (177.80 cm); 09:00 BP 138 / 80; Pulse 55; Resp 14; Pulse Ox 99% ; bp 07:58 Body Mass Index 24.39 (77.11 kg, 177.80 cm) MDM: 07:51 Patient medically screened. kb 08:09 Data reviewed: vital signs, nurses notes. Data interpreted: Pulse oximetry: on room air kb is 98 %. Interpretation: normal. 09:20 Counseling: I had a detailed discussion with the patient and/or guardian regarding: the kb historical points, exam findings, and any diagnostic results supporting the discharge/admit diagnosis, lab results, the need for outpatient follow up, a family practitioner, to return to the emergency department if symptoms worsen or persist or if there are any questions or concerns that arise at home. 06/06 07:57 Order name: CBC with Diff; Complete Time: 08:35 kb 06/06 07:57 Order name: Basic Metabolic Panel; Complete Time: 08:39 kb 06/06 07:57 Order name: IV Start; Complete Time: 08:12 kb 06/06 07:58 Order name: EKG; Complete Time: 07:59 kb 06/06 08:00 Order name: UDS; Complete Time: 08:35 kb 06/06 08:10 Order name: Urine Dipstick--Ancillary (enter results) eb 06/06 07:57 Order name: Blood Glucose Level; Complete Time: 08:00 kb 06/06 07:58 Order name: EKG - Nurse/Tech; Complete Time: 08:05 kb 06/06 08:00 Order name: Urine Dipstick-Ancillary (obtain specimen); Complete Time: 08:05 kb EC:08 Rate is 64 beats/min. Rhythm is regular, Normal Sinus Rhythm. QRS [place] is Normal. ME kb interval is normal at 198 msec. QRS interval is normal at 98 msec. QT interval is normal at 404 msec. Clinical impression: Normal ECG. Interpreted by me. Reviewed by me. Administered Medications: No medications were administered Point of Care Testing: Blood Glucose: 07:58 Blood Glucose: 124 mg/dL; hj Ranges: Critical Glucose Levels:Adult <50 mg/dl or >400 mg/dl <40 mg/dl or >180 mg/dl Disposition: 13:05 Co-signature as Attending Physician, Sergio Combs MD. rn Disposition: 06/06/18 09:21 Discharged to Home. Impression: Person with feared health complaint in whom no diagnosis is made. - Condition is Stable. - Discharge Instructions: Hypoglycemia, [id number]-Tcbo, Type 2 Diabetes Mellitus, Self Care, Adult, Xzbf-[id number]. - Medication Reconciliation Form, Thank You Letter, Antibiotic Education, Prescription Opioid Use form. - Follow up: Private Physician; When: 2 - 3 days; Reason: Recheck today's complaints, Continuance of care, Re-evaluation by your physician. Follow up: Emergency Department; When: As needed; Reason: Worsening of condition. Signatures: Dispatcher [employer] Malia Brown PERSONNEL ANALYST-C PERSONNEL ANALYST-Ckb Sergio Combs MD MD rn Joaquin, Henry, RN RN hj Peltier, Brian, CAROLA RN bp Corrections: (The following items were deleted from the chart) 09:47 09:21 06/06/2018 09:21 Discharged to Home. Impression: Person with feared health bp complaint in whom no diagnosis is made. Condition is Stable. Forms are Medication Reconciliation Form, Thank You Letter, Antibiotic Education, Prescription Opioid Use. Follow up: Private Physician; When: 2 - 3 days; Reason: Recheck today's complaints, Continuance of care, Re-evaluation by your physician. Follow up: Emergency Department; When: As needed; Reason: Worsening of condition. kb
--- NOTE | 2018-06-06 09:22 | ER ---
Nurse's Notes [facility] Name: Lincoln Espinal Age: 58 yrs Sex: Male : 1960 Arrival Date: 06/06/2018 Time: 07:50 Bed 7 Private MD: Diagnosis: Person with feared health complaint in whom no diagnosis is made Presentation: 06/06 07:54 Presenting complaint: Patient states: i think my blood sugar is still low, i checked it hj this morning, it was 153, i ate and then went to bed and checked it again, it was 116; now i feel irritable and shaky;. Transition of care: patient was not received from another setting of care. Onset of symptoms was June 06, 2018. Risk Assessment: Do you want to hurt yourself or someone else? Patient reports no desire to harm self or others. Initial Sepsis Screen: Does the patient meet any 2 criteria? No. Patient's initial sepsis screen is negative. Does the patient have a suspected source of infection? No. Patient's initial sepsis screen is negative. Care prior to arrival: None. 07:54 Method Of Arrival: Ambulatory 07:54 Acuity: KULDIP 3 hj Triage Assessment: 08:00 General: Appears in no apparent distress. comfortable, Behavior is cooperative, bp appropriate for age, anxious. Pain: Denies pain. EENT: No deficits noted. Neuro: Level of Consciousness is awake, alert, obeys commands, Oriented to person, place, time, situation, Appropriate for age. Cardiovascular: No deficits noted. Respiratory: Airway is patent Respiratory effort is even, unlabored, Respiratory pattern is regular, symmetrical. GI: No signs and/or symptoms were reported involving the gastrointestinal system. : No signs and/or symptoms were reported regarding the genitourinary system. Derm: Skin is clammy, Skin is normal, Skin temperature is cool. Musculoskeletal: Circulation, motion, and sensation intact. Range of motion: intact in all extremities. Historical: - Allergies: 07:57 No Known Allergies; - Home Meds: 07:57 Novolin 70/30 [place] 20 units at 0400 and 10 units 1600 daily Sub-Q [Active]; hj - PMHx: 07:57 Diabetes - IDDM; Hepatitis; Hypertension; - PSHx: 07:57 Unable to obtain; hj - Immunization history:: Adult Immunizations up to date. - Social history:: Smoking status: Patient uses tobacco products, unknown amount. - Ebola Screening: : Patient negative for fever greater than or equal to 101.5 degrees Fahrenheit, and additional compatible Ebola Virus Disease symptoms Patient denies exposure to infectious person Patient denies travel to an Ebola-affected area in the 21 days before illness onset. Screenin:00 Abuse screen: Denies threats or abuse. Denies injuries from another. Nutritional bp screening: No deficits noted. Tuberculosis screening: No symptoms or risk factors identified. Fall Risk None identified. Assessment: 08:00 General: SEE TRIAGE NOTE. bp 09:01 Reassessment: ALL CURRENT ORDERS COMPLETED, DISPO PENDING. bp 09:45 Reassessment: PT D/C HOME AMBULATORY, DX WITH FEARED HEALTH COMPLAINT. bp Vital Signs: 07:58 BP 152 / 81; Pulse 73; Resp 18; Pulse Ox 98% on R/A; Weight 77.11 kg; Height 5 ft. 10 hj in. (177.80 cm); 09:00 BP 138 / 80; Pulse 55; Resp 14; Pulse Ox 99% ; bp 07:58 Body Mass Index 24.39 (77.11 kg, 177.80 cm) ED Course: 07:50 Patient arrived in ED. as 07:51 Malia Jimenez FNP-C [facility]. kb 07:51 Sergio Combs MD is Attending Physician. kb 07:51 Waldemar Rachel, CAROLA is Primary Nurse. bp 07:56 Triage completed. hj 07:58 Arm band placed on right wrist. hj 08:00 Patient has correct armband on for positive identification. Bed in low position. Call bp light in reach. Side rails up X2. 08:07 UDS Sent. hj 08:08 EKG done, by ED staff, reviewed by Malia BENAVIDES. jb1 08:12 Initial lab(s) drawn, by ED staff, sent to lab. Inserted saline lock: 22 gauge in right hj antecubital area, using aseptic technique. Blood collected. 09:44 No provider procedures requiring assistance completed. IV discontinued, intact, bp bleeding controlled, No redness/swelling at site. Pressure dressing applied. Administered Medications: No medications were administered Point of Care Testing: Blood Glucose: 07:58 Blood Glucose: 124 mg/dL; Ranges: Outcome: 09:21 Discharge ordered by . steven 09:47 Discharged to home ambulatory. bp 09:47 Condition: stable 09:47 Discharge instructions given to patient, Instructed on discharge instructions, follow up and referral plans. Demonstrated understanding of instructions, follow-up care. 09:47 Patient left the ED. bp Signatures: [place] jb1 Malia Jimenez, JUNIOR SYSTEMS ANALYST-C KELLIE-Jazmine Ferro Henry RN RN hj Waldemar Rachel RN RN bp
[2018-06-06 10:51] VITALS: BP 138/80; O2SAT 99
--- NOTE | 2018-06-07 07:50 | EKG ---
Test Date: 2018-06-06 Test Time: 08:05:57 Machine Former: ANDERSON MEASUREMENT RESULTS: Intervals: Rate: 64 ND: 198 QRSD: 98 QT: 404 QTc: 416 [place]: P: 58 ND: 198 QRS: 12 T: 57 INTERPRETIVE STATEMENTS: Normal sinus rhythm Cannot rule out Anterior infarct, age undetermined Abnormal ECG Compared to ECG 01/30/2018 18:06:21 Sinus bradycardia no longer present Myocardial infarct finding still present Electronically Signed On 06-07-18 07:47:36 CDT by Arnaud Espinoza
== END 2018-06-06 09:47 | disposition home or self-care (01) ==
LOC: ER 07:47
DX: Z71.1 Person with feared health complaint in whom no diagnosis is made (principal); E11.649 Type 2 diabetes mellitus with hypoglycemia without coma; I10 Essential (primary) hypertension; Z79.4 Long term (current) use of insulin; F17.210 Nicotine dependence, cigarettes, uncomplicated
CPT/HCPCS: 36415; 80048; 80307; 81003; 82962; 85025; 93005; 99284

== ENCOUNTER 2018-09-01 10:41 | Emergency (ER) | payer SELFPAY ==
--- NOTE | 2018-09-01 11:28 | RAD REPORT ---
EXAM DESCRIPTION: CT - Head Brain Wo Cont - 09/01/2018 11:19 am CLINICAL HISTORY: DIZZINESS Headache, drowsiness, hypertension COMPARISON: No comparisons TECHNIQUE: All CT scans are performed using dose optimization technique as appropriate and may inclu de automated exposure control or mA/KV adjustment according to patient size. FINDINGS: No intracranial hemorrhage, hydrocephalus or extra-axial fluid collection.No areas of brai n edema or evidence of midline shift. The paranasal sinuses and mastoids are clear. The calvarium is intact. IMPRESSION: No acute intracranial abnormality.
--- NOTE | 2018-09-01 11:31 | RAD REPORT ---
EXAM DESCRIPTION: RAD - Chest Single View - 09/01/2018 11:25 am CLINICAL HISTORY: Cough, hypertension COMPARISON: October 2017 TECHNIQUE: AP portable chest image was obtained 1124 hours . FINDINGS: Lungs are clear. Heart and vasculature are normal. No measurable pleural effusion and no p neumothorax. No acute bone finding. Degenerative or old trauma changes noted to the head of the right clavicle stable from comparison. No acute aortic findings suspected. IMPRESSION: No acute cardiopulmonary process. No significant interval change.
[2018-09-01 12:00] LABS: Protime INR 0.94
[2018-09-01 12:01] LABS: Absolute Lymphocytes (CBC) 2.5 K/uL (0.7-4.9); Basophils % 1.1 % (0-1.3); Hematocrit 47.1 % (39.6-49.0); Lymphocytes % 31.3 % (15.3-44.8); MPV 8.6 fL (7.6-11.3); RBC Red Blood Cell Count 5.09 M/uL (4.33-5.43)
[2018-09-01 12:23] LABS: Barbiturates NEGATIVE (NEGATIVE); Benzodiazepines NEGATIVE (NEGATIVE); Cocaine NEGATIVE (NEGATIVE); METHAMPHETAM NEGATIVE (NEGATIVE); Methadone NEGATIVE (NEGATIVE); Opiates NEGATIVE (NEGATIVE); Phencyclidine NEGATIVE (NEGATIVE); THC Cannibis POSITIVE (NEGATIVE)
[2018-09-01] MEDS ORDERED: NA CHLORIDE 0.9% 1,000 ML ONE (12:25)
[2018-09-01 12:29] LABS: ALT/SGPT 87 U/L (12-78); AST/SGOT 51 U/L (15-37); Albumin 4.1 g/dL (3.4-5.0); Alkaline Phosphatase 93 U/L (45-117); BUN Blood Urea Nitrogen 24 mg/dL (7-18); Bicarbonate 29 mmol/L (21-32); Bilirubin Direct 0.1 mg/dL (0-0.2); Bilirubin Total 0.6 mg/dL (0.2-1.0); Glucose Level 190 mg/dL (74-106); Lipase 186 U/L (73-393); Magnesium 2.3 mg/dL (1.8-2.4); NT PRO-BNP 51 pg/mL (<125); Potassium 3.7 mmol/L (3.5-5.1); Protein, Total 8.8 g/dL (6.4-8.2); Sodium Level 135 mmol/L (136-145); Troponin (Emerg Dept Use Only) < 0.02 ng/mL (0.0-0.045)
--- NOTE | 2018-09-01 12:40 | ER ---
Nurse's Notes [facility] Name: Lincoln Espinal Age: 58 yrs Sex: Male : 1960 Arrival Date: 09/01/2018 Time: 10:42 Bed 25 Private MD: Stephane Ferreira T Diagnosis: Type 1 diabetes mellitus;Essential (primary) hypertension;Anxiety disorder, unspecified Presentation: 09/01 10:58 Presenting complaint: Patient states: "I've been having trouble with my blood pressure. ss Dr. Ferreira increased my Lisinopril recently. Last night I felt as if I were going to go into a seizure. I'm shaking right now, I'm having a hard time keeping my balance. PT reports symptoms began a week ago, but have gotten worse. Transition of care: patient was not received from another setting of care. Onset of symptoms. Risk Assessment: Do you want to hurt yourself or someone else? Patient reports no desire to harm self or others. 10:58 Method Of Arrival: Ambulatory ss 10:58 Acuity: KULDIP 3 ss Historical: - Allergies: 11:00 No Known Allergies; ss - PMHx: 11:00 Diabetes - IDDM; Hypertension; Hepatitis; ss - PSHx: 11:00 None; ss - Immunization history:: Adult Immunizations up to date. - Social history:: Smoking status: Patient/guardian denies using tobacco. - Ebola Screening: : Patient denies exposure to infectious person Patient denies travel to an Ebola-affected area in the 21 days before illness onset. - Family history:: not pertinent. Screenin:02 Abuse screen: Denies threats or abuse. Denies injuries from another. Nutritional aj screening: No deficits noted. Tuberculosis screening: No symptoms or risk factors identified. Fall Risk None identified. Assessment: 12:25 VAN Scoring: Arm Drift: Patients demonstrates NO arm weakness. Patient is VAN Negative. aj General: Appears in no apparent distress. comfortable, Behavior is calm, cooperative, appropriate for age. Pain: Denies pain. Neuro: Level of Consciousness is awake, alert, obeys commands, Oriented to person, place, time, situation, Appropriate for age. Respiratory: Airway is patent Respiratory effort is even, unlabored, Respiratory pattern is. Derm: Skin is intact, is healthy with good turgor, Skin is pink, warm \\T\\ dry. normal. 13:02 Reassessment: Patient appears in no apparent distress at this time. No changes from previously documented assessment. Patient and/or family updated on plan of care and expected duration. Pain level reassessed. Patient is alert, oriented x 3, equal unlabored respirations, skin warm/dry/pink. Patient denies pain at this time. Vital Signs: 11:00 BP 142 / 97; Pulse 73; Resp 16; Temp 98.8(TE); Pulse Ox 98% ; Weight 90.72 kg; Height 5 ss ft. 10 in. (177.80 cm); Pain 0/10; 12:25 BP 109 / 82; Pulse 72; Resp 16; Pulse Ox 99% on R/A; aj 11:00 Body Mass Index 28.70 (90.72 kg, 177.80 cm) NIH Stroke Scale Scores: 12:25 NIHSS Score: 0 aj 12:56 NIHSS Score: 0 [facility] ED Course: 10:42 Patient arrived in ED. as 10:43 Stephane Ferreira MD is Private Physician. as 11:00 Triage completed. ss 11:00 Arm band placed on left wrist. 11:02 Randall Sanford MD is Attending Physician. [facility] 11:16 Thania Mahoney, CAROLA is Primary Nurse. aj 11:22 X-ray completed. Patient tolerated procedure well. Patient moved back from radiology. mh1 11:24 CT Head Brain wo Cont In Process Unspecified. EDMS 11:27 XRAY Chest (1 view) In Process Unspecified. EDMS 11:48 Initial lab(s) drawn, by ia, sent to lab. Inserted saline lock: 20 gauge in right lt1 antecubital area, using aseptic technique. 12:09 EKG done, by cooking appliance repair technician. reviewed by Randall Sanford MD. sm3 12:38 Stephane Ferreira MD is Referral Physician. [facility] 13:02 Patient has correct armband on for positive identification. 13:02 No provider procedures requiring assistance completed. IV discontinued, intact. Administered Medications: 12:10 Drug: NS 0.9% 1000 ml Route: IV; Rate: 125 ml/hr; Site: right antecubital; Point of Care Testing: Blood Glucose: 11:46 Blood Glucose: 188 mg/dL; lt1 Ranges: Outcome: 12:39 Discharge ordered by . yuni 13:02 Discharged to home ambulatory. jerad 13:02 Condition: good 13:02 Discharge instructions given to patient, Instructed on discharge instructions, follow up and referral plans. medication usage, Demonstrated understanding of instructions, follow-up care, medications, Prescriptions given X 1. 13:03 Patient left the ED. jerad NIH Stroke Scale - NIH Stroke Score Date: 09/01/2018 Time: 12:25 Total Score = 0 1a. Level of Consciousness (LOC) - 0(Alert) 1b. Level of Consciousness (LOC) (Year \\T\\ Age) - 0(Both) 1c. LOC Commands (Open \\T\\ Closes Eyes/Cyber Ops Planner) - 0(Both) 2. Best Gaze (Lateral Gaze Paresis) - 0(Normal) 3. Visual Field Loss - 0(No visual loss) 4. Facial Palsy - 0(Normal) 5a. Left Arm: Motor (10-second hold) - 0(No drift) 5b. Right Arm: Motor (10-second hold) - 0(No drift) 6a. Left Leg: Motor (5-second hold - always test supine) - 0(No drift) 6b. Right Leg: Motor (5-second hold - always test supine) - 0(No drift) 7. Limb Ataxia (finger/nose \\T\\ heel/arias - test with eyes open) - 0(Absent) 8. Sensory Loss (pinprick arms/legs/face) - 0(Normal) 9. Best Language: Aphasia (description/naming/reading) - 0(No aphasia) 10. Dysarthria (speech clarity - read or repeat words) - 0(Normal) 11. Extinction and Inattention (visual/tactile/auditory/spatial/personal) - 0(No abnormality) Initials: jerad NIH Stroke Scale - NIH Stroke Score Date: 09/01/2018 Time: 12:56 Total Score = 0 1a. Level of Consciousness (LOC) - 0(Alert) 1b. Level of Consciousness (LOC) (Year \\T\\ Age) - 0(Both) 1c. LOC Commands (Open \\T\\ Closes Eyes/Cyber Ops Planner) - 0(Both) 2. Best Gaze (Lateral Gaze Paresis) - 0(Normal) 3. Visual Field Loss - 0(No visual loss) 4. Facial Palsy - 0(Normal) 5a. Left Arm: Motor (10-second hold) - 0(No drift) 5b. Right Arm: Motor (10-second hold) - 0(No drift) 6a. Left Leg: Motor (5-second hold - always test supine) - 0(No drift) 6b. Right Leg: Motor (5-second hold - always test supine) - 0(No drift) 7. Limb Ataxia (finger/nose \\T\\ heel/arias - test with eyes open) - 0(Absent) 8. Sensory Loss (pinprick arms/legs/face) - 0(Normal) 9. Best Language: Aphasia (description/naming/reading) - 0(No aphasia) 10. Dysarthria (speech clarity - read or repeat words) - 0(Normal) 11. Extinction and Inattention (visual/tactile/auditory/spatial/personal) - 0(No abnormality) Initials: yuni Signatures: Dispatcher [employer] Thania Garcia, Randall Sofia RN, MD MD cha Harvey, Martha 1 Jazmine Gonzalez Shelby, RN RN ss Montes, Shakira 3 Fanny Holman [facility]
--- NOTE | 2018-09-01 12:41 | EDPHYS ---
Physician Documentation [facility] Name: Lincoln Espinal Age: 58 yrs Sex: Male : 1960 Arrival Date: 09/01/2018 Time: 10:42 Bed 25 Private MD: Stephane Ferreira T ED Physician Randall Sanford HPI: 09/01 12:34 This 58 yrs old Male presents to ER via Ambulatory with complaints of Doesn't yuni Feel Right, Weakness, Numbness. 12:34 The patient presents to the emergency department with weakness of the. Onset: The yuni symptoms/episode began/occurred 1 day(s) ago. Associated signs and symptoms: The patient has no apparent associated signs or symptoms. Severity of symptoms: At their worst the symptoms were mild in the emergency department the symptoms. Patient's baseline: Neuro: alert and fully oriented. The patient has not experienced similar symptoms in the past. Historical: - Allergies: 11:00 No Known Allergies; ss - PMHx: 11:00 Diabetes - IDDM; Hypertension; Hepatitis; ss - PSHx: 11:00 None; ss - Immunization history:: Adult Immunizations up to date. - Social history:: Smoking status: Patient/guardian denies using tobacco. - Ebola Screening: : Patient denies exposure to infectious person Patient denies travel to an Ebola-affected area in the 21 days before illness onset. - Family history:: not pertinent. ROS: 12:34 Constitutional: Negative for fever, chills, and weight loss, Eyes: Negative for injury, yuni pain, redness, and discharge, ENT: Negative for injury, pain, and discharge, Neck: Negative for injury, pain, and swelling, Cardiovascular: Negative for chest pain, palpitations, and edema, Respiratory: Negative for shortness of breath, cough, wheezing, and pleuritic chest pain, Abdomen/GI: Negative for abdominal pain, nausea, vomiting, diarrhea, and constipation, Back: Negative for injury and pain, : Negative for injury, bleeding, discharge, and swelling, MS/Extremity: Negative for injury and deformity, Skin: Negative for injury, rash, and discoloration, Psych: Negative for depression, anxiety, suicide ideation, homicidal ideation, and hallucinations, Allergy/Immunology: Negative for hives, rash, and allergies, Endocrine: Negative for neck swelling, polydipsia, polyuria, polyphagia, and marked weight changes, Hematologic/Lymphatic: Negative for swollen nodes, abnormal bleeding, and unusual bruising. 12:34 Neuro: Positive for weakness. Exam: 12:34 Constitutional: This is a well developed, well nourished patient who is awake, alert, yuni and in no acute distress. Head/Face: Normocephalic, atraumatic. Eyes: Pupils equal round and reactive to light, extra-ocular motions intact. Lids and lashes normal. Conjunctiva and sclera are non-icteric and not injected. Cornea within normal limits. Periorbital areas with no swelling, redness, or edema. ENT: Nares patent. No nasal discharge, no septal abnormalities noted. Tympanic membranes are normal and external auditory canals are clear. Oropharynx with no redness, swelling, or masses, exudates, or evidence of obstruction, uvula midline. Mucous membranes moist. Neck: Trachea midline, no thyromegaly or masses palpated, and no cervical lymphadenopathy. Supple, full range of motion without nuchal rigidity, or vertebral point tenderness. No Meningismus. Chest/axilla: Normal chest wall appearance and motion. Nontender with no deformity. No lesions are appreciated. Cardiovascular: Regular rate and rhythm with a normal S1 and S2. No gallops, murmurs, or rubs. Normal PMI, no JVD. No pulse deficits. Respiratory: Lungs have equal breath sounds bilaterally, clear to auscultation and percussion. No rales, rhonchi or wheezes noted. No increased work of breathing, no retractions or nasal flaring. Abdomen/GI: Soft, non-tender, with normal bowel sounds. No distension or tympany. No guarding or rebound. No evidence of tenderness throughout. Back: No spinal tenderness. No costovertebral tenderness. Full range of motion. Male : Normal genitalia with no discharge or lesions. Skin: Warm, dry with normal turgor. Normal color with no rashes, no lesions, and no evidence of cellulitis. MS/ Extremity: Pulses equal, no cyanosis. Neurovascular intact. Full, normal range of motion. Neuro: Awake and alert, GCS 15, oriented to person, place, time, and situation. Cranial nerves II-XII grossly intact. Motor strength 5/5 in all extremities. Sensory grossly intact. Cerebellar exam normal. Normal gait. Psych: Awake, alert, with orientation to person, place and time. Behavior, mood, and affect are within normal limits. Vital Signs: 11:00 BP 142 / 97; Pulse 73; Resp 16; Temp 98.8(TE); Pulse Ox 98% ; Weight 90.72 kg; Height 5 ss ft. 10 in. (177.80 cm); Pain 0/10; 12:25 BP 109 / 82; Pulse 72; Resp 16; Pulse Ox 99% on R/A; aj 11:00 Body Mass Index 28.70 (90.72 kg, 177.80 cm) NIH Stroke Scale Scores: 12:25 NIHSS Score: 0 12:56 NIHSS Score: 0 [facility] MDM: 11:02 Patient medically screened. [facility] 12:37 Data reviewed: vital signs, nurses notes, lab test result(s), EKG, radiologic studies, [facility] CT scan, plain films. 09/01 11:04 Order name: Basic Metabolic Panel [facility] 09/01 11:04 Order name: CBC with Diff; Complete Time: 12:33 [facility] 09/01 11:04 Order name: LFT's; Complete Time: 12:33 [facility] 09/01 11:04 Order name: Magnesium; Complete Time: 12:33 [facility] 09/01 11:04 Order name: NT PRO-BNP; Complete Time: 12:33 [facility] 09/01 11:04 Order name: PT-INR; Complete Time: 12:33 [facility] 09/01 11:04 Order name: Troponin (emerg Dept Use Only); Complete Time: 12:33 [facility] 09/01 11:04 Order name: XRAY Chest (1 view); Complete Time: 12:33 [facility] 09/01 11:04 Order name: Lipase; Complete Time: 12:33 [facility] 09/01 11:04 Order name: CT Head Brain wo Cont; Complete Time: 12:33 [facility] 09/01 11:06 Order name: Basic Metabolic Panel; Complete Time: 12:33 [facility] 09/01 11:17 Order name: Urine Drug Screen; Complete Time: 12:33 09/01 11:51 Order name: Glucose, Ancillary Testing; Complete Time: 12:33 [facility] 09/01 12:21 Order name: Urine Dipstick--Ancillary (enter results); Complete Time: 12:56 09/01 11:04 Order name: EKG; Complete Time: 11:08 [facility] 09/01 11:04 Order name: Cardiac monitoring; Complete Time: 12:06 [facility] 09/01 11:04 Order name: EKG - Nurse/Tech; Complete Time: 11:49 [facility] 09/01 11:04 Order name: IV Saline Lock; Complete Time: 11:49 [facility] 09/01 11:04 Order name: Labs collected and sent; Complete Time: 12:06 [facility] 09/01 11:04 Order name: O2 Per Protocol; Complete Time: 12:06 [facility] 09/01 11:04 Order name: O2 Sat Monitoring; Complete Time: 12:06 [facility] 09/01 11:04 Order name: Urine Dipstick-Ancillary (obtain specimen); Complete Time: 12:16 [facility] 09/01 12:34 Order name: Orthostatics [facility] Administered Medications: 12:10 Drug: NS 0.9% 1000 ml Route: IV; Rate: 125 ml/hr; Site: right antecubital; Point of Care Testing: Blood Glucose: 11:46 Blood Glucose: 188 mg/dL; lt1 Ranges: Critical Glucose Levels:Adult <50 mg/dl or >400 mg/dl <40 mg/dl or >180 mg/dl Disposition: 09/01/18 12:39 Discharged to Home. Impression: Type 1 diabetes mellitus, Essential (primary) hypertension, Anxiety disorder, unspecified. - Condition is Stable. - Discharge Instructions: Type 1 Diabetes Mellitus, Diagnosis, Adult, Hypertension, Weakness, Hypertension, [id number], Weakness, [id number], Aspirin and Your Heart, Type 1 Diabetes Mellitus, Self Care, Adult, Type 1 Diabetes Mellitus, Diagnosis, Adult, [id number]. - Prescriptions for Xanax 0.5 mg Oral Tablet - take 1 tablet by ORAL route every 8 hours As needed; 20 tablet. - Medication Reconciliation Form, Thank You Letter, Antibiotic Education, Prescription Opioid Use form. - Follow up: Stephane Ferreira MD; When: 2 - 3 days; Reason: Recheck today's complaints, Continuance of care, Re-evaluation by your physician. - Problem is new. - Symptoms have improved. NIH Stroke Scale - NIH Stroke Score Date: 09/01/2018 Time: 12:25 Total Score = 0 1a. Level of Consciousness (LOC) - 0(Alert) 1b. Level of Consciousness (LOC) (Year \T\ Age) - 0(Both) 1c. LOC Commands (Open \T\ Closes Eyes/Channeler Runner) - 0(Both) 2. Best Gaze (Lateral Gaze Paresis) - 0(Normal) 3. Visual Field Loss - 0(No visual loss) 4. Facial Palsy - 0(Normal) 5a. Left Arm: Motor (10-second hold) - 0(No drift) 5b. Right Arm: Motor (10-second hold) - 0(No drift) 6a. Left Leg: Motor (5-second hold - always test supine) - 0(No drift) 6b. Right Leg: Motor (5-second hold - always test supine) - 0(No drift) 7. Limb Ataxia (finger/nose \T\ heel/arias - test with eyes open) - 0(Absent) 8. Sensory Loss (pinprick arms/legs/face) - 0(Normal) 9. Best Language: Aphasia (description/naming/reading) - 0(No aphasia) 10. Dysarthria (speech clarity - read or repeat words) - 0(Normal) 11. Extinction and Inattention (visual/tactile/auditory/spatial/personal) - 0(No abnormality) Initials: NIH Stroke Scale - NIH Stroke Score Date: 09/01/2018 Time: 12:56 Total Score = 0 1a. Level of Consciousness (LOC) - 0(Alert) 1b. Level of Consciousness (LOC) (Year \T\ Age) - 0(Both) 1c. LOC Commands (Open \T\ Closes Eyes/Channeler Runner) - 0(Both) 2. Best Gaze (Lateral Gaze Paresis) - 0(Normal) 3. Visual Field Loss - 0(No visual loss) 4. Facial Palsy - 0(Normal) 5a. Left Arm: Motor (10-second hold) - 0(No drift) 5b. Right Arm: Motor (10-second hold) - 0(No drift) 6a. Left Leg: Motor (5-second hold - always test supine) - 0(No drift) 6b. Right Leg: Motor (5-second hold - always test supine) - 0(No drift) 7. Limb Ataxia (finger/nose \T\ heel/arias - test with eyes open) - 0(Absent) 8. Sensory Loss (pinprick arms/legs/face) - 0(Normal) 9. Best Language: Aphasia (description/naming/reading) - 0(No aphasia) 10. Dysarthria (speech clarity - read or repeat words) - 0(Normal) 11. Extinction and Inattention (visual/tactile/auditory/spatial/personal) - 0(No abnormality) Initials: yuni Signatures: Dispatcher [employer] Thania Garcia RN RN aj Anderson, Corey, MD MD cha Smirch, Shelby, RN RN ss Corrections: (The following items were deleted from the chart) 12:55 12:39 09/01/2018 12:39 Discharged to Home. Impression: Type 1 diabetes yuni mellitus; Essential (primary) hypertension. Condition is Stable. Forms are Medication Reconciliation Form, Thank You Letter, Antibiotic Education, Prescription Opioid Use. Follow up: Stephane Ferreira; When: 2 - 3 days; Reason: Recheck today's complaints, Continuance of care, Re-evaluation by your physician. Problem is new. Symptoms have improved. [facility] 13:03 12:55 09/01/2018 12:39 Discharged to Home. Impression: Type 1 diabetes aj mellitus; Essential (primary) hypertension; Anxiety disorder, unspecified. Condition is Stable. Discharge Instructions: Hypertension, Weakness, Hypertension, Ojee-yc-Ydne, Weakness, Mpmk-[id number], Type 1 Diabetes Mellitus, Diagnosis, Adult, Type 1 Diabetes Mellitus, Self Care, Adult, Type 1 Diabetes Mellitus, Diagnosis, Adult, [id number]. Forms are Medication Reconciliation Form, Thank You Letter, Antibiotic Education, Prescription Opioid Use. Follow up: Stephane Ferreira; When: 2 - 3 days; Reason: Recheck today's complaints, Continuance of care, Re-evaluation by your physician. Problem is new. Symptoms have improved. yuni
[2018-09-01 12:51] LABS: Urine Blood TRACE (NEG); Urine Glucose NEGATIVE (NEG); Urine Protein 1+ (NEG); Urine Specific Gravity >1.030 (1.005-1.030)
[2018-09-01 13:22] VITALS: TEMP 98.8
[2018-09-01 13:24] VITALS: BP 109/82; O2SAT 99
--- NOTE | 2018-09-02 10:42 | EKG ---
Test Date: 2018-09-01 Test Time: 11:40:41 Occupational Health Nurse Manager: JAYCE MEASUREMENT RESULTS: Intervals: Rate: 72 SC: 206 QRSD: 88 QT: 400 QTc: 438 [place]: P: 54 SC: 206 QRS: 12 T: 54 INTERPRETIVE STATEMENTS: Sinus rhythm with occasional premature ventricular complexes Septal infarct, age undetermined Abnormal ECG Compared to ECG 06/06/2018 08:05:57 Ventricular premature complex(es) now present Myocardial infarct finding still present Electronically Signed On 09-02-18 10:41:21 CDT by Timothy Burger
== END 2018-09-01 13:03 | disposition home or self-care (01) ==
LOC: ER 10:41
DX: E10.9 Type 1 diabetes mellitus without complications (principal); I10 Essential (primary) hypertension; F41.9 Anxiety disorder, unspecified; K75.9 Inflammatory liver disease, unspecified; Z79.4 Long term (current) use of insulin
CPT/HCPCS: 36415; 70450; 71045; 80048; 80076; 80307; 81003; 82962; 83690; 83735; 83880; 84484; 85025; 85610; 93005; 99284; J7030

== ENCOUNTER 2019-07-04 08:53 | Emergency (ER) | payer SELFPAY ==
[2019-07-04 09:44] LABS: Basophils % 0.7 % (0-1.3); Hematocrit 43.3 % (39.6-49.0); Lymphocytes % 26.6 % (15.3-44.8); MPV 8.3 fL (7.6-11.3); RBC Red Blood Cell Count 4.62 M/uL (4.33-5.43)
[2019-07-04 09:56] LABS: Barbiturates NEGATIVE (NEGATIVE); Benzodiazepines NEGATIVE (NEGATIVE); Cocaine NEGATIVE (NEGATIVE); METHAMPHETAM NEGATIVE (NEGATIVE); Methadone NEGATIVE (NEGATIVE); Opiates NEGATIVE (NEGATIVE); Phencyclidine NEGATIVE (NEGATIVE); THC Cannibis POSITIVE (NEGATIVE)
--- NOTE | 2019-07-04 09:56 | RAD REPORT ---
EXAM DESCRIPTION: CT - Head Brain Wo Cont - 07/04/2019 9:47 am CLINICAL HISTORY: HEADACHE COMPARISON: Head Brain Wo Cont dated 09/01/2018 TECHNIQUE: Axial 5 mm thick images of the head were obtained without IV contrast. All CT scans are performed using dose optimization technique as appropriate and may include automated exposure control or mA/KV adjustment according to patient size. FINDINGS: No intracranial hemorrhage, mass, edema or shift of mid-line structures. No acute infarcti on changes seen. No abnormal extra-axial fluid collections. Ventricles are normal. Minimal chronic is chemic change seen. Mastoid air cells and visualized portions of the paranasal sinuses are clear. No acute bony findings. IMPRESSION: Negative non-contrast CT head examination for acute finding. No significant change from comparison.
[2019-07-04 10:01] LABS: Albumin 3.6 g/dL (3.4-5.0); Bilirubin Direct 0.2 mg/dL (0-0.2); Bilirubin Total 0.5 mg/dL (0.2-1.0); Potassium 3.6 mmol/L (3.5-5.1); Protein, Total 8.6 g/dL (6.4-8.2)
[2019-07-04 10:26] LABS: Urine Blood NEGATIVE (NEG); Urine Glucose NEGATIVE (NEG); Urine Protein NEGATIVE (NEG); Urine Specific Gravity 1.025 (1.005-1.030); Urine pH 5.5 (5.0-7.0)
--- NOTE | 2019-07-04 10:56 | ER ---
Nurse's Notes [facility] Name: Lincoln Espinal Age: 59 yrs Sex: Male : 1960 Arrival Date: 07/04/2019 Time: 08:54 Bed 8 Private MD: Stephane Ferreira T Diagnosis: Headache;Cannabis abuse Presentation: 07/03 09:09 Chief complaint: Patient states: "I have high blood pressure and I am shaky and I have hb a headache and my kidneys are swollen, I am just not feeling right.". Coronavirus screen: Proceed with normal triage. Ebola Screen: No symptoms or risks identified at this time. Initial Sepsis Screen: Does the patient meet any 2 criteria? No. Patient's initial sepsis screen is negative. Does the patient have a suspected source of infection? No. Patient's initial sepsis screen is negative. Risk Assessment: Do you want to hurt yourself or someone else? Patient reports no desire to harm self or others. Onset of symptoms was July 04, 2019. 09:09 Method Of Arrival: Ambulatory hb 09:09 Acuity: KULDIP 3 hb Historical: - Allergies: 09:12 No Known Allergies; hb - Home Meds: 09:12 Novolin 70/30 [place] 20 units at 0400 and 10 units 1600 daily Sub-Q [Active]; hb Hydrochlorothiazide Oral [Active]; Metformin Oral [Active]; doxazosin oral oral [Active]; - PMHx: 09:12 Hepatitis; Hypertension; Diabetes - IDDM; hb - PSHx: 09:12 None; hb - Immunization history:: Adult Immunizations up to date. - Social history:: Smoking status: Patient denies any tobacco usage or history of. Patient/guardian denies using alcohol, street drugs. Screenin:20 Abuse screen: Denies threats or abuse. Nutritional screening: No deficits noted. em Tuberculosis screening: No symptoms or risk factors identified. Fall Risk None identified. Assessment: 09:20 General: Appears in no apparent distress. comfortable, Behavior is calm, cooperative, em appropriate for age, Denies fever. Pain: Denies pain. Neuro: Level of Consciousness is awake, alert, obeys commands, Oriented to person, place, time, situation, Appropriate for age Reports headache Denies blurred vision dizziness. Cardiovascular: Denies chest pain, Capillary refill < 3 seconds Patient's skin is warm and dry. Rhythm is sinus rhythm with multifocal PVCs with 1st degree heart block. Respiratory: Airway is patent Respiratory effort is even, unlabored, Respiratory pattern is regular, symmetrical, Denies cough, shortness of breath. GI: Abdomen is round non-distended, Patient currently denies abdominal pain, nausea, vomiting. : Denies burning with urination. Derm: Skin is intact, is healthy with good turgor, Skin is pink, warm \\T\\ dry. Musculoskeletal: Capillary refill < 3 seconds, Range of motion: intact in all extremities. 10:30 Reassessment: Patient appears in no apparent distress at this time. Patient and/or em family updated on plan of care and expected duration. Pain level reassessed. Patient is alert, oriented x 3, equal unlabored respirations, skin warm/dry/pink. Vital Signs: 09:09 BP 128 / 94; Pulse 83; Resp 16; Temp 97.9; Pulse Ox 97% on R/A; Weight 95.25 kg; Height hb 5 ft. 10 in. (177.80 cm); Pain 2/10; 10:01 BP 116 / 2; Pulse 74; Resp 15; Pulse Ox 95% ; sv 11:01 BP 124 / 78; Pulse 76; Resp 18; Pulse Ox 95% on R/A; Pain 0/10; em 09:09 Body Mass Index 30.13 (95.25 kg, 177.80 cm) hb ED Course: 08:54 Patient arrived in ED. am2 08:54 Stephane Ferreira MD is Private Physician. am2 09:08 Keven Liu, CAROLA is Primary Nurse. em 09:09 Rehan Armendariz NP is PHCP. pm1 09:09 Antoine Haney MD is Attending Physician. pm1 09:10 Triage completed. hb 09:12 Arm band placed on. hb 09:20 Patient has correct armband on for positive identification. Placed in gown. Bed in low em position. Pulse ox on. NIBP on. 09:32 Initial lab(s) drawn, by me, sent to lab. Inserted saline lock: 22 gauge in right kj1 antecubital area, using aseptic technique. Blood collected. 09:37 EKG done, by ED staff, reviewed by Rehan Armendariz NP. dh3 09:46 CT completed. Patient tolerated procedure well. Patient moved back from CT. bq 09:47 CT Head Brain wo Cont In Process Unspecified. EDMS 10:54 Stephane Ferreira MD is Referral Physician. pm1 11:01 No provider procedures requiring assistance completed. em 11:11 IV discontinued, intact, bleeding controlled, No redness/swelling at site. Pressure em dressing applied. Administered Medications: No medications were administered Outcome: 10:54 Discharge ordered by MD. pm1 11:11 Discharged to home ambulatory. em 11:11 Condition: good 11:11 Discharge instructions given to patient, Instructed on discharge instructions, follow up and referral plans. Demonstrated understanding of instructions, follow-up care. 11:12 Patient left the ED. em Signatures: Dispatcher [employer] EDDenisse Huggins, RN RN Sumi Thomas Edgar, RN RN em Rehan Armendariz, HYDROGENATION STILL OPERATOR HYDROGENATION STILL OPERATOR pm1 Ana Turcios RN RN hb Moreno, Amanda 2 Evette Salazar 3 Radha Jimenez 1
--- NOTE | 2019-07-04 10:56 | EDPHYS ---
Physician Documentation [facility] Name: Lincoln Espinal Age: 59 yrs Sex: Male : 1960 Arrival Date: 07/04/2019 Time: 08:54 Bed 8 Private MD: Stephane Ferreira T ED Physician nAtoine Haney Historical: - Allergies: 07/03 09:12 No Known Allergies; hb - Home Meds: 09:12 Novolin 70/30 [place] 20 units at 0400 and 10 units 1600 daily Sub-Q [Active]; hb Hydrochlorothiazide Oral [Active]; Metformin Oral [Active]; doxazosin oral oral [Active]; - PMHx: 09:12 Hepatitis; Hypertension; Diabetes - IDDM; hb - PSHx: 09:12 None; hb - Immunization history:: Adult Immunizations up to date. - Social history:: Smoking status: Patient denies any tobacco usage or history of. Patient/guardian denies using alcohol, street drugs. Vital Signs: 09:09 BP 128 / 94; Pulse 83; Resp 16; Temp 97.9; Pulse Ox 97% on R/A; Weight 95.25 kg; Height hb 5 ft. 10 in. (177.80 cm); Pain 2/10; 10:01 BP 116 / 2; Pulse 74; Resp 15; Pulse Ox 95% ; sv 11:01 BP 124 / 78; Pulse 76; Resp 18; Pulse Ox 95% on R/A; Pain 0/10; em 09:09 Body Mass Index 30.13 (95.25 kg, 177.80 cm) hb MDM: 09:15 Patient medically screened. pm1 10:53 Data reviewed: vital signs. Data interpreted: Pulse oximetry: on room air is 95 %. pm1 Interpretation: normal. 10:53 Counseling: I had a detailed discussion with the patient and/or guardian regarding: the pm1 historical points, exam findings, and any diagnostic results supporting the discharge/admit diagnosis, lab results, radiology results, the need for outpatient follow up, a family practitioner, a retail coverage merchandiser lead, to return to the emergency department if symptoms worsen or persist or if there are any questions or concerns that arise at home. 07/03 09:22 Order name: ELADIA; Complete Time: 09:57 pm1 07/03 09:22 Order name: Basic Metabolic Panel; Complete Time: 10:02 pm07/03 09:22 Order name: CBC with Diff; Complete Time: 10: pm07/03 09:22 Order name: LFT's; Complete Time: 10:02 pm07/03 09:26 Order name: ETOH Level; Complete Time: 10:34 pm07/03 09:39 Order name: Urine Dipstick--Ancillary (enter results); Complete Time: :34 07/03 09:22 Order name: EKG; Complete Time: 09:22 pm07/03 09:22 Order name: EKG - Nurse/Tech; Complete Time: :34 pm07/03 09:22 Order name: IV Saline Lock; Complete Time: :07/03 09:22 Order name: Labs collected and sent; Complete Time: :34 pm07/03 09:22 Order name: CT Head Brain wo Cont; Complete Time: 09:57 pm1 Administered Medications: No medications were administered Disposition: 07/04/19 10:54 Discharged to Home. Impression: Headache, Cannabis abuse. - Condition is Stable. - Discharge Instructions: General Headache Without Cause, Hypertension, Cannabis Use Disorder. - Medication Reconciliation Form, Thank You Letter, Antibiotic Education, Prescription Opioid Use form. - Follow up: Emergency Department; When: As needed; Reason: Worsening of condition. Follow up: Stephane Ferreira MD; When: 2 - 3 days; Reason: Recheck today's complaints, Continuance of care, Re-evaluation by your physician. - Problem is new. - Symptoms have improved. Signatures: Dispatcher [employer] [facility] Keven Liu RN RN em Rehan Armendariz, SUPERVISOR OF OFFICIALS SUPERVISOR OF OFFICIALS pm1 Ana Turcios RN RN Corrections: (The following items were deleted from the chart) 11:12 10:54 07/04/2019 10:54 Discharged to Home. Impression: Headache; Cannabis abuse. em Condition is Stable. Forms are Medication Reconciliation Form, Thank You Letter, Antibiotic Education, Prescription Opioid Use. Follow up: Emergency Department; When: As needed; Reason: Worsening of condition. Follow up: Stephane Ferreira; When: 2 - 3 days; Reason: Recheck today's complaints, Continuance of care, Re-evaluation by your physician. Problem is new. Symptoms have improved. pm1
[2019-07-04 11:23] VITALS: TEMP 97.9
[2019-07-04 11:25] VITALS: O2SAT 95
[2019-07-04 11:26] VITALS: BP 124/78
--- NOTE | 2019-07-05 08:54 | EKG ---
Test Date: 2019-07-04 Test Time: 09:35:57 Wireless Construction Manager: REY MEASUREMENT RESULTS: Intervals: Rate: 76 SD: 220 QRSD: 94 QT: 406 QTc: 456 [place]: P: 51 SD: 220 QRS: -16 T: 41 INTERPRETIVE STATEMENTS: Sinus rhythm with 1st degree AV block with frequent premature ventricular complexes Low voltage QRS Incomplete right bundle branch block Septal infarct, age undetermined Abnormal ECG Compared to ECG 09/01/2018 11:40:41 First degree AV block now present Low QRS voltage now present Incomplete right bundle-branch block now present Myocardial infarct finding still present Electronically Signed On 07-05-19 08:52:43 CDT by Arnaud Espinoza
== END 2019-07-04 11:12 | disposition home or self-care (01) ==
LOC: ER 08:53
DX: R51 Headache (principal); F12.10 Cannabis abuse, uncomplicated; E11.9 Type 2 diabetes mellitus without complications; I10 Essential (primary) hypertension
CPT/HCPCS: 36415; 70450; 80048; 80076; 80307; 80320; 81003; 85025; 93005; 99285

== ENCOUNTER 2019-09-27 09:13 | Emergency (ER) | payer SELFPAY ==
[2019-09-27 09:57] LABS: Absolute Lymphocytes (CBC) 1.4 K/uL (0.7-4.9); Basophils % 0.5 % (0-1.3); Hematocrit 46.5 % (39.6-49.0); MPV 8.6 fL (7.6-11.3); RBC Red Blood Cell Count 5.05 M/uL (4.33-5.43)
[2019-09-27 10:17] LABS: BUN Blood Urea Nitrogen 22 mg/dL (7-18); Bicarbonate 27 mmol/L (21-32); Glucose Level 205 mg/dL (74-106); Magnesium 2.2 mg/dL (1.8-2.4); Potassium 3.5 mmol/L (3.5-5.1); Sodium Level 138 mmol/L (136-145); Troponin (Emerg Dept Use Only) < 0.02 ng/mL (0.0-0.045)
[2019-09-27 10:29] LABS: Blood Morphology Comment NOT SEEN (NOT SEEN); Platelet Estimate ADEQ; Urine White Blood Cell Casts OK
--- NOTE | 2019-09-27 10:38 | RAD REPORT ---
EXAM DESCRIPTION: Ian Single View09/27/2019 9:57 am CLINICAL HISTORY: Hypertension COMPARISON: 2018 FINDINGS: The lungs appear clear of acute infiltrate. The heart is normal size IMPRESSION: No acute abnormalities displayed
[2019-09-27 12:10] LABS: Urine Bacteria NONE SEEN /HPF (NONE SEEN); Urine Culture Reflex Order NOT NEEDED; Urine RBC <5 /HPF (NONE SEEN)
--- NOTE | 2019-09-27 13:22 | ER ---
Nurse's Notes [facility] Name: Lincoln Espinal Age: 59 yrs Sex: Male : 1960 Arrival Date: 09/27/2019 Time: 09:19 Bed 20 Private MD: Diagnosis: Hypertension;Tremor, unspecified;Dehydration Presentation: 09/26 09:23 Chief complaint: EMS states: Shaking this morning. Reports nausea and weakness x 1 jl7 month. Coronavirus screen: Client denies travel out of the [place] in the last 14 days. At this time, the client does not indicate any symptoms associated with coronavirus-19. Ebola Screen: No symptoms or risks identified at this time. Initial Sepsis Screen: Does the patient meet any 2 criteria? No. Patient's initial sepsis screen is negative. Does the patient have a suspected source of infection? No. Patient's initial sepsis screen is negative. Risk Assessment: Do you want to hurt yourself or someone else? Patient reports no desire to harm self or others. Onset of symptoms is unknown. Care prior to arrival: Glucose check: 154. Transition of care: patient was not received from another setting of care. 09:23 Method Of Arrival: EMS: [facility] jl7 09:23 Acuity: KULDIP 3 jl7 Triage Assessment: 09:27 General: Appears in no apparent distress. uncomfortable, Behavior is calm, cooperative, jl7 appropriate for age. Pain: Complains of pain in dorsal aspect of right forearm Pain radiates to right supraclavicular area Pain currently is 7 out of 10 on a pain scale. Neuro: Level of Consciousness is awake, alert, obeys commands, Oriented to person, place, time, situation. Cardiovascular: Patient's skin is warm and dry. Respiratory: Airway is patent Respiratory effort is even, unlabored, Respiratory pattern is regular, symmetrical. GI: Reports nausea. : No signs and/or symptoms were reported regarding the genitourinary system. Derm: Skin is pink, warm \\T\\ dry. Historical: - Allergies: : No Known Allergies; jl7 - Home Meds: : metoprolol tartrate 100 mg Oral tab [Active]; lisinopril 20 mg oral tab [Active]; jl7 hydrochlorothiazide 25 mg oral tab [Active]; Novolin 70/30 In[place]let 20 units at 0400 and 10 units 1600 daily Sub-Q [Active]; - PMHx: 09:27 Diabetes - IDDM; Hypertension; Hepatitis; jl7 - PSHx: 09:27 None; jl7 - Immunization history:: Adult Immunizations unknown. - Social history:: Smoking status: unknown. - Family history:: not pertinent. - Hospitalizations: : No recent hospitalization is reported. Screenin:55 Abuse screen: Denies threats or abuse. Denies injuries from another. Nutritional jl7 screening: No deficits noted. Tuberculosis screening: No symptoms or risk factors identified. Fall Risk IV access (20 points). Total Marcano Fall Scale indicates No Risk (0-24 pts). Assessment: 09:30 General: See triage assessment. jl7 13:10 Reassessment: pt states "i just dont feel right, i think i am going to pass out", "im tw2 sorry to bother yall i just usually eat every few hours, but i am fighting an infection and so my sugar is probably high", provider notified. Vital Signs: 09:23 BP 160 / 100; Pulse 67; Resp 17; Pulse Ox 98% ; jl7 09:56 BP 157 / 90; Pulse 64; Resp 17; Temp 97.8; Pulse Ox 100% ; jl7 12:07 BP 142 / 94; Pulse 93; Resp 17; Pulse Ox 100% ; jl7 ED Course: 09:19 Patient arrived in ED. jl7 09:20 Patient has correct armband on for positive identification. Placed in gown. Bed in low jl7 position. Call light in reach. Side rails up X2. 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 Pulse ox on. NIBP on. Warm blanket given. 09:23 Tai Esparza, RN is Primary Nurse. jl7 09:25 Triage completed. jl7 09:27 Sergio Combs MD is Attending Physician. rn 09:27 Arm band placed on right wrist. jl7 09:35 Initial lab(s) drawn, by me, sent to lab. EKG done, by ED staff, reviewed by Sergio Combs MD. Inserted saline lock: 20 gauge in right antecubital area, using aseptic technique. Blood collected. 09:57 XRAY Chest (1 view) In Process Unspecified. EDMS 13:32 No provider procedures requiring assistance completed. IV discontinued, intact, jl7 bleeding controlled, No redness/swelling at site. Pressure dressing applied. Administered Medications: No medications were administered Outcome: 13:21 Discharge ordered by . rn 13:32 Discharged to home ambulatory. jl7 13:32 Condition: stable 13:32 Discharge instructions given to patient, Instructed on discharge instructions, follow up and referral plans. Demonstrated understanding of instructions, follow-up care. 13:32 Patient left the ED. jl7 Signatures: Dispatcher [employer] EDMS Sergio Combs MD MD rn Wise, Tara RN RN tw2 Tai Esparza RN RN jl7 Corrections: (The following items were deleted from the chart) 13:14 13:10 Reassessment: pt states "i just dont feel right, i think i am going to pass out", tw2 tw2
--- NOTE | 2019-09-27 13:22 | EDPHYS ---
Physician Documentation [facility] Name: Lincoln Espinal Age: 59 yrs Sex: Male : 1960 Arrival Date: 09/27/2019 Time: 09:19 Bed 20 Private MD: ED Physician Sergio Combs HPI: 09/26 11:07 This 59 yrs old Male presents to ER via EMS with complaints of Doesn't Feel rn Right. 11:07 Pt reports shaking, generalized weakness, got worse today but hasn't felt right for a rn month or so. No head injury or headache. Reports pain to right shoulder that comes and goes. No chest pain/sob/abd pain/vomiting/diarrhea. Reports glucose under control. Attributes these symptoms to high blood pressure, no recent changes in BP meds other than taking HCTZ prn when running high. . Onset: The symptoms/episode began/occurred this morning. Severity of symptoms: At their worst the symptoms were moderate in the emergency department the symptoms have improved. The patient has experienced similar episodes in the past. The patient has not recently seen a physician. Historical: - Allergies: 09: No Known Allergies; jl7 - Home Meds: 09:27 metoprolol tartrate 100 mg Oral tab [Active]; lisinopril 20 mg oral tab [Active]; jl7 hydrochlorothiazide 25 mg oral tab [Active]; Novolin 70/30 In[place]let 20 units at 0400 and 10 units 1600 daily Sub-Q [Active]; - PMHx: 09:27 Diabetes - IDDM; Hypertension; Hepatitis; jl7 - PSHx: :27 None; jl7 - Immunization history:: Adult Immunizations unknown. - Social history:: Smoking status: unknown. - Family history:: not pertinent. - Hospitalizations: : No recent hospitalization is reported. ROS: 11:07 Constitutional: Negative for fever, and weight loss, Eyes: Negative for injury, pain, rn redness, and discharge, Cardiovascular: Negative for chest pain, palpitations, and edema, Respiratory: Negative for shortness of breath, cough, wheezing, and pleuritic chest pain, Abdomen/GI: Negative for abdominal pain, nausea, vomiting, diarrhea, and constipation, MS/Extremity: Negative for injury and deformity, Skin: Negative for injury, rash, and discoloration, Neuro: Negative for headache, numbness, tingling, and seizure. Exam: 11:07 Constitutional: This is a well developed, well nourished patient who is awake, alert, rn and in no acute distress. Seems anxious and emotional. Head/Face: Normocephalic, atraumatic. Eyes: Pupils equal round and reactive to light, extra-ocular motions intact. Lids and lashes normal. Conjunctiva and sclera are non-icteric and not injected. Cornea within normal limits. Periorbital areas with no swelling, redness, or edema. Cardiovascular: Regular rate and rhythm. No pulse deficits. Respiratory: Speaking full sentences, no labored breathing. Abdomen/GI: Soft, non-tender MS/ Extremity: Pulses equal, no cyanosis. Neurovascular intact. Full, normal range of motion. Equal circumference. Neuro: Awake and alert, GCS 15, oriented to person, place, time, and situation. Cranial nerves II-XII grossly intact. Motor strength 5/5 in all extremities. Sensory grossly intact. Cerebellar exam normal. Normal gait. Vital Signs: 09:23 BP 160 / 100; Pulse 67; Resp 17; Pulse Ox 98% ; jl7 09:56 BP 157 / 90; Pulse 64; Resp 17; Temp 97.8; Pulse Ox 100% ; jl7 12:07 BP 142 / 94; Pulse 93; Resp 17; Pulse Ox 100% ; jl7 MDM: 09:27 Patient medically screened. rn 13:20 Differential Diagnosis viral syndrome, UTI, anxiety, stress, HTN. Data reviewed: vital rn signs, nurses notes, lab test result(s), EKG, radiologic studies, plain films, and as a result, I will discharge patient. Counseling: I had a detailed discussion with the patient and/or guardian regarding: the historical points, exam findings, and any diagnostic results supporting the discharge/admit diagnosis, lab results, radiology results, the need for outpatient follow up, to return to the emergency department if symptoms worsen or persist or if there are any questions or concerns that arise at home. Special discussion: I discussed with the patient/guardian in detail that at this point there is no indication for admission to the hospital. It is understood, however, that if the symptoms persist or worsen the patient needs to return immediately for re-evaluation. 09/26 09:28 Order name: CBC with Diff; Complete Time: 10:39 rn 09/26 09:28 Order name: Basic Metabolic Panel; Complete Time: 10:39 rn 09/26 09:28 Order name: Troponin (emerg Dept Use Only); Complete Time: 10:39 rn 09/26 09:28 Order name: Magnesium; Complete Time: 10:39 rn 09/26 10:01 Order name: CBC Smear Scan; Complete Time: 10:39 EDMS 09/26 10:48 Order name: Urine Microscopic Only; Complete Time: 12:28 rn 09/26 09:28 Order name: IV Start; Complete Time: 09:54 rn 09/26 09:28 Order name: EKG; Complete Time: 09:28 rn 09/26 09:28 Order name: EKG - Nurse/Tech; Complete Time: 09:54 rn 09/26 09:28 Order name: XRAY Chest (1 view); Complete Time: 10:40 rn 09/26 10:48 Order name: Urine Dipstick-Ancillary (obtain specimen); Complete Time: 12:08 rn 09/26 11:52 Order name: Urine Dipstick--Ancillary (enter results) eb 09/26 13:14 Order name: Blood Glucose Level; Complete Time: 13:14 tw2 09/26 13:24 Order name: Glucose, Ancillary Testing EDMS Administered Medications: No medications were administered Disposition: 09/27/19 13:21 Discharged to Home. Impression: Hypertension, Tremor, unspecified, Dehydration. - Condition is Stable. - Discharge Instructions: Dehydration, Adult, Hypertension, Tremor. - Medication Reconciliation Form, Thank You Letter, Antibiotic Education, Prescription Opioid Use form. - Follow up: Private Physician; When: As needed; Reason: Recheck today's complaints, Re-evaluation by your physician. - Problem is new. - Symptoms have improved. Signatures: Dispatcher [employer] EDMS Sergio Combs MD MD rn Wise, Tara, RN RN tw2 Tai Esparza RN RN jl7 Corrections: (The following items were deleted from the chart) 11:09 11:07 Constitutional: Negative for fever, and weight loss, Eyes: Negative for injury, rn pain, redness, and discharge, Cardiovascular: Negative for chest pain, palpitations, and edema, Respiratory: Negative for shortness of breath, cough, wheezing, and pleuritic chest pain, Abdomen/GI: Negative for abdominal pain, nausea, vomiting, diarrhea, and constipation, MS/Extremity: Negative for injury and deformity, Skin: Negative for injury, rash, and discoloration, Neuro: Negative for headache, numbness, tingling, and seizure, rn 13:32 13:21 09/27/2019 13:21 Discharged to Home. Impression: Hypertension; Tremor, jl7 unspecified; Dehydration. Condition is Stable. Forms are Medication Reconciliation Form, Thank You Letter, Antibiotic Education, Prescription Opioid Use. Follow up: Private Physician; When: As needed; Reason: Recheck today's complaints, Re-evaluation by your physician. Problem is new. Symptoms have improved. rn
[2019-09-27 13:38] VITALS: TEMP 97.8; O2SAT 100
[2019-09-27 13:39] VITALS: BP 142/94
[2019-09-27 14:39] LABS: Urine Blood NEGATIVE (NEG); Urine Glucose NEGATIVE (NEG); Urine Protein NEGATIVE (NEG); Urine Specific Gravity 1.015 (1.005-1.030)
== END 2019-09-27 13:32 | disposition home or self-care (01) ==
LOC: ER 09:13
DX: I10 Essential (primary) hypertension (principal); E86.0 Dehydration; R25.1 Tremor, unspecified; E11.9 Type 2 diabetes mellitus without complications; Z79.4 Long term (current) use of insulin
CPT/HCPCS: 36415; 71045; 80048; 81003; 81015; 82947; 83735; 84484; 85025; 93005; 99284

== ENCOUNTER 2020-12-22 06:12 | Emergency (ER) | payer SELFPAY ==
[2020-12-22 07:33] LABS: Absolute Lymphocytes (CBC) 1.9 K/uL (0.7-4.9); Hematocrit 43.8 % (39.6-49.0); MPV 8.6 fL (7.6-11.3); RBC Red Blood Cell Count 4.61 M/uL (4.33-5.43)
[2020-12-22 07:34] LABS: Protime INR 0.9
[2020-12-22 08:16] LABS: ALT/SGPT 99 U/L (12-78); AST/SGOT 65 U/L (15-37); Albumin 3.8 g/dL (3.4-5.0); Alkaline Phosphatase 78 U/L (45-117); BUN Blood Urea Nitrogen 23 mg/dL (7-18); Bicarbonate 29 mmol/L (21-32); Bilirubin Direct 0.2 mg/dL (0-0.2); Bilirubin Total 0.7 mg/dL (0.2-1.0); Glucose Level 150 mg/dL (74-106); Magnesium 1.9 mg/dL (1.8-2.4); NT PRO-BNP 287 pg/mL (<125); Protein, Total 8.9 g/dL (6.4-8.2); Sodium Level 137 mmol/L (136-145); Troponin (Emerg Dept Use Only) < 0.02 ng/mL (0.0-0.045)
[2020-12-22 08:20] LABS: Potassium 2.9 mmol/L (3.5-5.1)
--- NOTE | 2020-12-22 08:28 | RAD REPORT ---
EXAM DESCRIPTION: RAD - Chest Single View - 12/22/2020 6:57 am CLINICAL HISTORY: DYSPNEA COMPARISON: September 2019 TECHNIQUE: AP portable chest image was obtained 12/22/2020 6:57 am . FINDINGS: Approximately 3 centimeter sized area of focal masslike density is present in the left mid lung field. This was not seen on the comparison. Atelectasis is possible. In the acute clinical setti ng this is possibly a small pneumonia. Mass lesion of the chest cannot be excluded. Correlation is needed with any acute pneumonia symptoms. Repeat chest imaging in 4-6 weeks would be s uggested to allow clearing of any infectious process. Heart and vasculature are normal. No measurable pleural effusion and no pneumothorax. No acute bony a bnormality seen. No acute aortic findings suspected. IMPRESSION: Small masslike density left midlung field. This is possibly atelectasis. Acute infiltrate is also a primary consideration if there are acute res piratory symptoms. Malignancy cannot be excluded. Repeat chest imaging in 4-6 weeks could be performed to allow resolution of any acute infectious proc ess. If the mass persists, CT chest imaging would be recommended.
[2020-12-22] MEDS ORDERED: POTASSIUM 25 MEQ EFFERV TAB ONE (08:34)
--- NOTE | 2020-12-22 08:34 | ER ---
Nurse's Notes [facility] Name: Lincoln Espinal Age: 60 yrs Sex: Male : 1960 Arrival Date: 12/22/2020 Time: 06:15 Bed 4 Private MD: Diagnosis: Essential (primary) hypertension Presentation: 12/22 06:19 Chief complaint: Patient states: Patient states that he has been feeling weak, out of tw5 breath, and a little bit of pain in his chest. He also states that his blood pressure has been high of late. Coronavirus screen: Vaccine status: Patient reports receiving the 2nd dose of the covid vaccine. Ebola Screen: Patient negative for fever greater than or equal to 101.5 degrees Fahrenheit, and additional compatible Ebola Virus Disease symptoms Patient denies exposure to infectious person. Patient denies travel to an Ebola-affected area in the 21 days before illness onset. Initial Sepsis Screen: Does the patient meet any 2 criteria? No. Patient's initial sepsis screen is negative. Does the patient have a suspected source of infection? No. Patient's initial sepsis screen is negative. Risk Assessment: Do you want to hurt yourself or someone else? Patient reports no desire to harm self or others. Onset of symptoms was December 19, 2020 at 06:22. 06:19 Method Of Arrival: Ambulatory tw5 06:19 Acuity: KULDIP 3 tw5 Triage Assessment: 06:22 Headache History: The patient has had previous headaches and this one is different than tw5 previous episodes. General: Appears in no apparent distress. Behavior is calm, cooperative. Pain: Pain currently is 1 out of 10 on a pain scale. Pain began gradually, Also complains of shortness of breath. Neuro: Level of Consciousness is awake, alert, obeys commands, Oriented to person, place, time, situation, Branch Administrator are equal bilaterally Moves all extremities. Historical: - Allergies: 07:29 No Known Allergies; jl7 - Home Meds: 06:22 hydrochlorothiazide 25 mg Oral tab [Active]; lisinopril 10 mg oral tab [Active]; tw5 metoprolol tartrate 100 mg Oral tab [Active]; Novolin 70/30 In[place]let 20 units at 0400 and 10 units 1600 daily Sub-Q [Active]; - PMHx: 06:22 Diabetes - IDDM; Hepatitis; Hypertension; tw5 - PSHx: 06:22 Tonsillectomy; tw5 - Immunization history:: Client reports receiving the 2nd dose of the Covid vaccine. - Social history:: Smoking status: Patient denies any tobacco usage or history of. Screenin:25 Abuse screen: Denies threats or abuse. Denies injuries from another. Nutritional tw5 screening: No deficits noted. Tuberculosis screening: No symptoms or risk factors identified. Fall Risk No fall in past 12 months (0 pts). Assessment: 06:45 General: Appears in no apparent distress. uncomfortable, obese, well groomed, well bs2 developed, well nourished, Behavior is calm, cooperative, appropriate for age. Pain: Complains of pain in chest Pain. Neuro: No deficits noted. Cardiovascular: No deficits noted. Respiratory: Reports shortness of breath on exertion. GI: No signs and/or symptoms were reported involving the gastrointestinal system. 07:00 Reassessment: Patient appears in no apparent distress at this time. No changes from jl7 previously documented assessment. Patient is alert, oriented x 3, equal unlabored respirations, skin warm/dry/pink. Vital Signs: 06:19 BP 164 / 111; Pulse 70; Resp 18; Temp 98.6; Pulse Ox 99% on R/A; Weight 95.25 kg; tw5 Height 5 ft. 10 in. (177.80 cm); Pain 1/10; 07:47 BP 141 / 97; Pulse 71; Resp 15; Pulse Ox 98% ; jl7 06:19 Body Mass Index 30.13 (95.25 kg, 177.80 cm) tw5 ED Course: 06:15 Patient arrived in ED. wm 06:17 Malia Jimenez FNP-C is PHCP. kb 06:17 Randall Sanford MD is Attending Physician. kb 06:19 Kathy Smith, CAROLA is Primary Nurse. bs2 06:22 Triage completed. tw5 06:24 Initial lab(s) drawn, by me, sent to lab. EKG done, by ED staff, reviewed by Randall Sanford MD. Inserted saline lock: 20 gauge in right antecubital area, using aseptic technique. Blood collected. 06:25 Patient has correct armband on for positive identification. Placed in gown. Bed in low tw5 position. Call light in reach. Side rails up X 1. Side rails up X2. 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 Pulse ox on. NIBP on. Door closed. Noise minimized. Lights dimmed. Moved to private room. Warm blanket given. Verbal reassurance given. 06:26 Basic Metabolic Panel Sent. tw 06:26 CBC with Diff Sent. 06:26 LFT's Sent. 06: Magnesium Sent. : NT PRO-BNP Sent. : Troponin (emerg Dept Use Only) Sent. 06: PT-INR Sent. tw 06:45 No provider procedures requiring assistance completed. bs2 06:57 XRAY Chest (1 view) In Process Unspecified. EDMS 07:00 Arm band placed on right wrist. jl7 07:10 Initial lab(s) drawn, by me, sent to lab. jl7 08:39 IV discontinued, intact, bleeding controlled, No redness/swelling at site. Pressure jl7 dressing applied. Administered Medications: 08:38 Drug: Potassium Effervescent Tablet 50 mEq Route: PO; jl7 08:39 Follow up: Response: Medication administered at discharge. jl7 Outcome: 08:34 Discharge ordered by MD. kb 08:39 Discharged to home ambulatory. jl7 08:39 Condition: stable 08:39 Discharge instructions given to patient, Instructed on discharge instructions, follow up and referral plans. Demonstrated understanding of instructions, follow-up care. 08:39 Patient left the ED. jl7 Signatures: Dispatcher [employer] EDMalia Cardenas, KENNEDY HOPKINS-Tai Campa RN RN jl7 Ruth De Jesus Bridget RN RN bs2 Ashwini Swann tw5
--- NOTE | 2020-12-22 08:34 | EDPHYS ---
Physician Documentation [facility] Name: Lincoln Espinal Age: 60 yrs Sex: Male : 1960 Arrival Date: 12/22/2020 Time: 06:15 Bed 4 Private MD: LASHAWN Physician Randall Sanford HPI: 12/22 06:21 This 60 yrs old Male presents to ER via Unassigned with complaints of kb Headache, Arm Pain - Left. 06:21 The patient has elevated blood pressure and discovered this at home, with a home kb device. Onset: The symptoms/episode began/occurred 1 week(s) ago. Associated signs and symptoms: Pertinent positives: dyspnea, headache, weakness, Pertinent negatives: chest pain, dizziness, lightheadedness, nausea, visual changes, vomiting. Severity of symptoms: At its worst the blood pressure was 170 mm Hg. The patient has not experienced similar symptoms in the past. The patient has not recently seen a physician. Pt states he hasn't been feeling well and has been weak so he's been checking his bp and it has been high. States he has had a slight headache and pain to left forearm. Was scheduled to see Dr Ferreira today, but states "I know he would just tell me to come here." . Historical: - Allergies: 07:29 No Known Allergies; jl7 - Home Meds: 06:22 hydrochlorothiazide 25 mg Oral tab [Active]; lisinopril 10 mg oral tab [Active]; tw5 metoprolol tartrate 100 mg Oral tab [Active]; Novolin 70/30 [place] 20 units at 0400 and 10 units 1600 daily Sub-Q [Active]; - PMHx: 06:22 Diabetes - IDDM; Hepatitis; Hypertension; tw5 - PSHx: 06:22 Tonsillectomy; tw5 - Immunization history:: Client reports receiving the 2nd dose of the Covid vaccine. - Social history:: Smoking status: Patient denies any tobacco usage or history of. ROS: 06:28 Constitutional: Negative for fever, chills, and weight loss. kb 06:28 Respiratory: Positive for shortness of breath, Negative for cough, dyspnea on exertion, hemoptysis, orthopnea, pleurisy, sputum production, wheezing. 06:28 MS/extremity: Positive for pain, of the dorsal aspect of left forearm. 06:28 Neuro: Positive for headache, weakness, Negative for altered mental status, dizziness, gait disturbance, hearing loss, loss of consciousness, numbness, speech changes, syncope, near syncope, tingling, tremor, visual changes. 06:28 All other systems are negative. Exam: 06:27 Constitutional: This is a well developed, well nourished patient who is awake, alert, kb and in no acute distress. Head/Face: Normocephalic, atraumatic. ENT: Moist Mucous membranes Cardiovascular: Regular rate and rhythm with a normal S1 and S2. No gallops, murmurs, or rubs. No pulse deficits. Respiratory: Respirations even and unlabored. No increased work of breathing, no retractions or nasal flaring. Abdomen/GI: Soft, non-tender. No distention Skin: Warm, dry with normal turgor. Normal color. MS/ Extremity: Pulses equal, no cyanosis. Neurovascular intact. Full, normal range of motion. Neuro: Awake and alert, GCS 15, oriented to person, place, time, and situation. Moves all extremities. Normal gait. Psych: Awake, alert, with orientation to person, place and time. Behavior, mood, and affect are within normal limits. 06:27 ECG was reviewed by the Attending Physician. Vital Signs: 06:19 BP 164 / 111; Pulse 70; Resp 18; Temp 98.6; Pulse Ox 99% on R/A; Weight 95.25 kg; tw5 Height 5 ft. 10 in. (177.80 cm); Pain 1/10; 07:47 BP 141 / 97; Pulse 71; Resp 15; Pulse Ox 98% ; jl7 06:19 Body Mass Index 30.13 (95.25 kg, 177.80 cm) tw5 MDM: 06:17 Patient medically screened. kb 06:28 Data reviewed: vital signs, nurses notes. Data interpreted: Pulse oximetry: on room air kb is 99 %. Interpretation: normal. 08:33 Counseling: I had a detailed discussion with the patient and/or guardian regarding: the kb historical points, exam findings, and any diagnostic results supporting the discharge/admit diagnosis, lab results, radiology results, the need for outpatient follow up, a family practitioner, to return to the emergency department if symptoms worsen or persist or if there are any questions or concerns that arise at home. ED course: Pt has appt at 0900 with PCP, Dr Ferreira. Will discharge pt to go to appt. 12/22 06:21 Order name: Basic Metabolic Panel; Complete Time: 08:30 kb 12/22 06:21 Order name: CBC with Diff; Complete Time: 07:35 kb 12/22 06:21 Order name: LFT's; Complete Time: 08:30 kb 12/22 06:21 Order name: Magnesium; Complete Time: 08:30 kb 12/22 06:21 Order name: NT PRO-BNP; Complete Time: 08:30 kb 12/22 06:21 Order name: PT-INR; Complete Time: 07:35 kb 12/22 06:21 Order name: Troponin (emerg Dept Use Only); Complete Time: 08:30 kb 12/22 06:21 Order name: XRAY Chest (1 view); Complete Time: 08:30 kb 12/22 06:21 Order name: EKG; Complete Time: 06:21 kb 12/22 06:21 Order name: Cardiac monitoring; Complete Time: 06:26 kb 12/22 06:21 Order name: EKG - Nurse/Tech; Complete Time: 06:26 kb 12/22 06:21 Order name: IV Saline Lock; Complete Time: 06:26 kb 12/22 06:21 Order name: Labs collected and sent; Complete Time: 06:26 kb 12/22 06:21 Order name: O2 Per Protocol; Complete Time: 06:26 kb 12/22 06:21 Order name: O2 Sat Monitoring; Complete Time: 06:26 kb 12/22 07:44 Order name: Vital Signs; Complete Time: 07:47 kb EC:27 Rate is 68 beats/min. Rhythm is regular. Left axis deviation noted. MA interval is kb prolonged at 218 msec. QRS interval is normal at 90 msec. QT interval is normal at 432 msec. Administered Medications: 08:38 Drug: Potassium Effervescent Tablet 50 mEq Route: PO; jl7 08:39 Follow up: Response: Medication administered at discharge. jl7 Disposition: 08:48 Co-signature as Attending Physician, Randall Sanford MD I agree with the assessment and yuni plan of care. Disposition Summary: 12/22/20 08:34 Discharge Ordered Location: Home kb Condition: Stable kb Diagnosis - Essential (primary) hypertension kb Followup: kb - With: Emergency Department - When: As needed - Reason: Worsening of condition Followup: kb - With: Private Physician - When: 2 - 3 days - Reason: Recheck today's complaints, Continuance of care, Re-evaluation by your physician Discharge Instructions: - Discharge Summary Sheet kb - Hypertension, Adult, [id number] kb Forms: - Medication Reconciliation Form kb - Thank You Letter kb - Antibiotic Education kb - Prescription Opioid Use kb Signatures: Dispatcher [employer] EDMalia Cardenas, KELLIE-C SUPPORT ASSISTANT-Randall Brewer MD MD cha Leal, Jahala RN RN jl7 Ashwini Swann tw5
[2020-12-22 09:02] VITALS: TEMP 98.6
[2020-12-22 09:03] VITALS: BP 141/97; O2SAT 98
--- NOTE | 2020-12-22 20:36 | EKG ---
Test Date: 2020-12-22 Test Time: 06:24:00 Core Inspector: MEASUREMENT RESULTS: Intervals: Rate: 68 CO: 218 QRSD: 90 QT: 432 QTc: 459 [place]: P: 29 CO: 218 QRS: -28 T: 32 INTERPRETIVE STATEMENTS: Sinus rhythm with 1st degree AV block with occasional premature ventricular complexes Possible Left atrial enlargement Borderline ECG Compared to ECG 09/27/2019 09:41:27 Ventricular premature complex(es) now present Myocardial infarct finding no longer present Electronically Signed On 12-22-20 20:34:58 HARVESTING MANAGER by Arnaud Espinoza
== END 2020-12-22 08:39 | disposition home or self-care (01) ==
LOC: ER 06:12
DX: I10 Essential (primary) hypertension (principal); E11.9 Type 2 diabetes mellitus without complications
CPT/HCPCS: 36415; 71045; 80048; 80076; 83735; 83880; 84484; 85025; 85610; 93005; 99284

== ENCOUNTER 2021-01-24 13:30 | Inpatient (IN) | payer SELFPAY ==
[2021-01-24] MEDS ORDERED: NA CHLORIDE 0.9% 1,000 ML ONE (13:38)
[2021-01-24 14:04] LABS: Urine Blood 3+ (Negative); Urine Glucose Trace (Negative); Urine Protein 2+ (Negative); Urine Specific Gravity >=1.030 (1.005-1.030)
[2021-01-24 14:11] LABS: Absolute Lymphocytes (CBC) 0.5 K/uL (0.7-4.9); Basophils % 0.1 % (0-1.3); MPV 9.3 fL (7.6-11.3); RBC Red Blood Cell Count 3.78 M/uL (4.33-5.43)
[2021-01-24 14:20] LABS: Arterial Blood Carboxyhemoglob 0.9 % (0-1.5); Blood Gas Oxyhemoglobin 96.3 % (94-97); Blood O2 Saturation 98.1 % (92-98.5)
[2021-01-24 14:26] LABS: ALT/SGPT 166 U/L (12-78); AST/SGOT 227 U/L (15-37); Albumin 1.6 g/dL (3.4-5.0); Alkaline Phosphatase 59 U/L (45-117); BUN Blood Urea Nitrogen 105 mg/dL (7-18); Bicarbonate 17 mmol/L (21-32); Bilirubin Direct 0.2 mg/dL (0-0.2); Bilirubin Total 0.4 mg/dL (0.2-1.0); Glucose Level 331 mg/dL (74-106); Lipase 121 U/L (73-393); Protein, Total 6.7 g/dL (6.4-8.2); Sodium Level 138 mmol/L (136-145); Troponin (Emerg Dept Use Only) < 0.02 ng/mL (0.0-0.045)
[2021-01-24 14:32] LABS: Potassium 5.9 mmol/L (3.5-5.1)
[2021-01-24 14:43] LABS: Protime INR 1.19
--- NOTE | 2021-01-24 14:44 | RAD REPORT ---
EXAM DESCRIPTION: Ian Single View01/24/2021 2:25 pm CLINICAL HISTORY: Shortness of breath COMPARISON: December 2020 FINDINGS: Moderate patchy left lung opacities. Right lung appears clear. The heart is borderline enlarged IMPRESSION: Moderate patchy left lung opacities probably pneumonia. This should be followed until i t is clear to help exclude a post obstructive process/underlying mass
[2021-01-24 14:50] LABS: Urine Bacteria <20 /HPF (NONE SEEN); Urine RBC <5 /HPF (NONE SEEN)
[2021-01-24 14:53] LABS: Calcium Oxalate Crystals- Ur FEW (NONE SEEN)
[2021-01-24] MEDS ORDERED: RSI MEDICATION KIT IV ONE (14:53)
[2021-01-24] MEDS ORDERED: PIPERACIL/TAZO 3.375 GM VIAL IV ONE (14:53)
[2021-01-24] MEDS ORDERED: NA CHLORIDE 0.9% 100 ML ONE (14:54)
[2021-01-24 16:17] LABS: SARS-COV-2 RT PCR NEGATIVE (NEGATIVE)
[2021-01-24 16:39] LABS: Blood Morphology Comment NOT SEEN (NOT SEEN); Platelet Estimate INCR
[2021-01-24] MEDS ORDERED: NOREPINEPHRINE 4mg/D5W 250mL 4 MG/250 ML BAG IV ONE ×3 (16:43→22:35)
[2021-01-24] MEDS ORDERED: FUROSEMIDE 100 MG/10 ML VIAL IV ONE ×2 (16:47)
--- NOTE | 2021-01-24 17:21 | ER ---
Nurse's Notes [facility] Name: Lincoln Espinal Age: 61 yrs Sex: Male : 1960 Arrival Date: 01/24/2021 Time: 13:33 Bed 28 Private MD: Diagnosis: Pneumonia, unspecified organism;Severe sepsis with septic shock;Acute kidney failure, unspecified Presentation: 01/24 13:47 Chief complaint: EMS states: Toned out for altered mental status and SOB. Ebola Screen: ll3 No symptoms or risks identified at this time. Initial Sepsis Screen: Does the patient meet any 2 criteria? RR > 20 per min. Systolic BP < 90 mmHg. Altered Mental Status. Yes Does the patient have a suspected source of infection? Yes: Dysuria/Frequency/Urgency/UTI. Risk Assessment: Do you want to hurt yourself or someone else? Patient reports no desire to harm self or others. Onset of symptoms is unknown. 13:47 Method Of Arrival: EMS: [facility] 3 13:47 Acuity: KULDIP 2 ll3 14:01 Coronavirus screen: difficulty breathing, Client presents with at least one sign or ll3 symptom that may indicate coronavirus-19. Standard/surgical mask placed on the client. Provider contacted for isolation considerations. Historical: - Allergies: 14:01 No Known Allergies; ll3 - Home Meds: 14:01 hydrochlorothiazide 25 mg Oral tab [Active]; lisinopril 10 mg Oral tab [Active]; ll3 metoprolol tartrate 100 mg Oral tab [Active]; Novolin 70/30 [place] 20 units at 0400 and 10 units 1600 daily Sub-Q [Active]; - PMHx: 14:01 Diabetes - IDDM; Hepatitis; Hypertension; ll3 - PSHx: 14:01 Tonsillectomy; ll3 - Immunization history:: Adult Immunizations unknown. - Social history:: Smoking status: unknown. Screenin:00 Abuse screen: unable to obtain. Nutritional screening: unable to obtain. Tuberculosis jl7 screening: No symptoms or risk factors identified. Fall Risk IV access (20 points). Mental Status- Overestimates/Forgets Limitations (15 pts.). Total Marcano Fall Scale indicates High Risk Score (45 or more points). Fall prevention measures have been instituted. Side Rails Up X 2 Placed Close to Nursing Station Frequent Obs/Assessments Occuring As available patient and family educated on Fall Prevention Program and Strategies. Assessment: 13:45 Reassessment: RT at bedside, pt placed on BiPap. jl7 17:28 Reassessment: Dr. Hebert gave VO for 40 mg Lasix in 50 mL NS, infuse over 20 minutes ll3 and notify him with urine output after 2 hours; hold the 160 mg lasix until after he is notified of output; add CK, uric acid, cortisol, and TSH to pt's labs. 18:19 Reassessment: nurse received verbal orders from Dr. Santiago. Provider states that he ap3 would like to have an insulin drip with a DKA protocol and a gram of vancomycin X's 1. Orders placed in [facility] with assistance of charge nurse. Vital Signs: 13:47 BP 84 / 56; Pulse 107; Resp 28; Pulse Ox 85% on Non-rebreather mask; ll3 14:03 BP 82 / 68; Pulse 94; Resp 26; Temp 98.3(C); Pulse Ox 100% on BiPAP; ll3 14:42 BP 82 / 59; Pulse 85; Resp 32; Temp 98.2(C); Pulse Ox 100% on BiPAP; ll3 15:00 BP 88 / 69; Pulse 89; Resp 32; Pulse Ox 97% on BiPAP; jl7 15:31 BP 86 / 61; Pulse 87; Resp 28; Temp 98; Pulse Ox 100% ; jl7 16:00 BP 87 / 70; Pulse 88; Resp 29; Pulse Ox 100% ; jl7 16:30 BP 85 / 53; Pulse 90; Resp 24; Pulse Ox 100% on BiPAP; jl7 17:00 BP 82 / 60; Pulse 90; Resp 30; Pulse Ox 100% ; jl7 17:06 Weight 104.33 kg; jl7 17:30 BP 90 / 76; Pulse 93; Resp 23; Pulse Ox 100% on BiPAP; jl7 17:40 BP 85 / 72; Pulse 87; Resp 29; Pulse Ox 100% ; jl7 17:45 BP 100 / 74; Pulse 87; Resp 15; Pulse Ox 100% ; jl7 17:55 BP 101 / 76; Pulse 86; Resp 24; Pulse Ox 100% ; jl7 18:10 BP 102 / 75; Pulse 88; Resp 28; Pulse Ox 100% ; jl7 18:20 BP 93 / 72; Pulse 92; Resp 21; Pulse Ox 100% ; jl7 18:25 BP 89 / 63; Pulse 92; Resp 20; Pulse Ox 100% ; jl7 18:45 BP 104 / 68; Pulse 88; Resp 31 A; Temp 98.8(C); Pulse Ox 100% on BiPAP; jl7 ED Course: 13:33 Patient arrived in ED. em1 13:37 Sergio Combs MD is Attending Physician. rn 13:41 Earle Quiroz RN is Primary Nurse. ll3 13:45 Inserted saline lock: 20 gauge in right antecubital area, using aseptic technique. jl7 Blood collected. 13:45 Initial lab(s) drawn, by ED staff, sent to lab. First set of blood cultures drawn by ED jl7 staff. Second set of blood cultures drawn by ED staff. 13:50 Triage completed. ll3 13:50 Hancock cath inserted, using sterile technique, 16 Fr., by sd, balloon inflated, to jl7 gravity drainage, urine specimen collected. returned hanna urine. Patient tolerated well. Criticore. 14:00 Patient has correct armband on for positive identification. Placed in gown. Bed in low jl7 position. Call light in reach. Side rails up X2. surveillance monitor on. Pulse ox on. NIBP on. Warm blanket given. 14:01 Arm band placed on right wrist. ll3 14:25 Chest Single View XRAY In Process Unspecified. EDMS 16:36 Assisted provider with central line placement. Set up central line tray. Triple lumen ap3 line placed in right femoral. Line placed by Sergio Combs MD Placement verified by blood return, Dressed with Tape, Tegaderm, Patient tolerated well. Before procedure, did Practitioner(s) obtain informed consent? Yes. Patient \T\ family education about procedure, CLABSI prevention and S/S of infection? Yes. Time-out/Briefing performed prior to start of procedure? Yes. Was handwashing/sanitizing done immediately prior to procedure? Yes. Was patient positioned to in a way to prevent air embolism? Yes. Was procedure site sterilized? Yes, with chlorhexidine. Was the site allowed to dry? Yes. Was local anesthetic and/or sedation utilized? Yes. During the procedure, did the Practitioner(s) maintain a sterile field? Yes. Were unused ports clamped during insertion? Yes. Was a 2nd qualified MD obtained after 3 unsuccessful insertion attempts? N/A. Was blood aspirated from each lumen? Yes. After the procedure, did the Practitioner(s) clean the site and apply a sterile dressing? Yes. 17:20 Alexa Yuan MD is Hospitalizing Provider. rn 18:25 Renal Ultrasound-Complete In Process Unspecified. EDMS Administered Medications: 13:42 Drug: NS 0.9% 1000 ml Route: IV; Rate: 1000 ml; Site: right antecubital; ll3 14:03 Drug: NS 0.9% 1000 ml Route: IV; Rate: 1000 ml; Site: right antecubital; ll3 17:19 Follow up: Response: No adverse reaction; IV Status: Completed infusion; IV Intake: ll3 1000ml 15:09 Drug: Zosyn (piperacillin-tazobactam) 3.375 grams Route: IVPB; Infused Over: 60 mins; ap3 Site: right antecubital; 16:20 Follow up: Response: No adverse reaction; IV Status: Completed infusion ll3 17:15 Drug: Levophed (norepinephrine) (4 mg/250 mL D5W 4 mcg/min Route: IV; Rate: calculated ll3 rate; Site: right femoral; 17:20 Follow up: Rate change 10 mcg/min ll3 17:21 Follow up: Rate change 5 mcg/min ll3 17:55 Drug: Lasix (furosemide) 40 mg Route: IVP; Site: right femoral; jl7 18:15 Follow up: Response: No adverse reaction; infusion complete jl7 18:09 Not Given (Dr. Hebert changed order): Lasix (furosemide) 160 mg IVP once; give over 2 jl7 minutes Intake: 17:19 IV: 1000ml; Total: 1000ml. ll3 Outcome: 17:21 Decision to Hospitalize by Provider. rn 01/26 23:32 Patient left the ED. mw Signatures: Dispatcher [employer] EDMS Ariana Lopez RN Sergio Chery MD MD rn Martinez, Eric em1 Tai Esparza RN RN jl7 Thania Mesa RN RN ap3 Earle Quiroz RN RN ll3 Corrections: (The following items were deleted from the chart) 01/24 13:53 13:43 Family history: not pertinent, david west3 13:53 13:43 Hospitalizations: No recent hospitalization is reported. david west3 53 13:43 The history from the nurse's notes was reviewed. david west3 14:44 14:03 BP 82 / 68; Pulse 94bpm; Resp 26bpm; Pulse Ox 100% Non-rebreather mask; Temp ll3 98.3F Catheter; ll3 17:21 17:17 Levophed (norepinephrine) (4 mg/250 mL D5W 4 mcg/min IV at calculated rate in ll3 right femoral ll3
--- NOTE | 2021-01-24 17:21 | EDPHYS ---
Physician Documentation [facility] Name: Lincoln Espinal Age: 61 yrs Sex: Male : 1960 Arrival Date: 01/24/2021 Time: 13:33 Bed 28 Private MD: ED Physician Sergio Combs HPI: 01/24 13:40 This 61 yrs old Male presents to ER via Unassigned with complaints of Altered mental rn status. 13:40 The patient presents with decreased mental status, decreased responsiveness. Onset: The rn symptoms/episode began/occurred 3 day(s) ago. Possible causes: unknown. 13:43 Associated signs and symptoms: Pertinent positives: confusion, shortness of breath, rn Pertinent negatives: chest pain, headache. Current symptoms: In the emergency department the patient's symptoms are unchanged from the initial presentation. It is unknown whether or not the patient has had similar symptoms in the past. The patient has not recently seen a physician. EMS reports that called out for altered mental status and difficulty breathing, started 3 days ago, no fall or trauma. EMS reports hypotension as well as hypoxia with tachypnea. Started 2 IVs and started 1 L bolus of which about 400 cc has gone in. Patient is awake and answers questions but somnolent. Patient denies any focal pain. No other meds given.. Historical: - Allergies: 14:01 No Known Allergies; ll3 - Home Meds: 14:01 hydrochlorothiazide 25 mg Oral tab [Active]; lisinopril 10 mg Oral tab [Active]; ll3 metoprolol tartrate 100 mg Oral tab [Active]; Novolin 70/30 [place] 20 units at 0400 and 10 units 1600 daily Sub-Q [Active]; - PMHx: 14:01 Diabetes - IDDM; Hepatitis; Hypertension; ll3 - PSHx: 14:01 Tonsillectomy; ll3 - Immunization history:: Adult Immunizations unknown. - Social history:: Smoking status: unknown. ROS: 13:43 Constitutional: Negative for fever, chills, and weight loss, Eyes: Negative for injury, rn pain, redness, and discharge, Neck: Negative for injury, pain, and swelling, Cardiovascular: Negative for chest pain, palpitations, and edema, Respiratory: Positive for shortness of breath Abdomen/GI: Negative for abdominal pain, nausea, vomiting, diarrhea, and constipation, MS/Extremity: Negative for injury and deformity, Skin: Negative for injury, rash, and discoloration, Neuro: Positive for generalized weakness Exam: 13:43 Constitutional: Overweight male with protuberant abdomen, with moderate tachypnea and rn somnolence Head/Face: Normocephalic, atraumatic. Eyes: Periorbital areas with no swelling, redness, or edema. Cardiovascular: Tachycardic, regular. No pulse deficits Respiratory: Moderate tachypnea, diminished at bases, poor inspiratory air movement Abdomen/GI: Soft, distended, no masses or focal tenderness Skin: Cool extremities, no cyanosis MS/ Extremity: Pulses equal, no cyanosis. Neuro: Patient somnolent, awakens to voice and tactile stimulation, answers questions but overall slow to respond. Moves all 4 extremities. 13:50 ECG was reviewed by the Attending Physician. rn Vital Signs: 13:47 BP 84 / 56; Pulse 107; Resp 28; Pulse Ox 85% on Non-rebreather mask; ll3 14:03 BP 82 / 68; Pulse 94; Resp 26; Temp 98.3(C); Pulse Ox 100% on BiPAP; ll3 14:42 BP 82 / 59; Pulse 85; Resp 32; Temp 98.2(C); Pulse Ox 100% on BiPAP; ll3 15:00 BP 88 / 69; Pulse 89; Resp 32; Pulse Ox 97% on BiPAP; jl7 15:31 BP 86 / 61; Pulse 87; Resp 28; Temp 98; Pulse Ox 100% ; jl7 16:00 BP 87 / 70; Pulse 88; Resp 29; Pulse Ox 100% ; jl7 16:30 BP 85 / 53; Pulse 90; Resp 24; Pulse Ox 100% on BiPAP; jl7 17:00 BP 82 / 60; Pulse 90; Resp 30; Pulse Ox 100% ; jl7 17:06 Weight 104.33 kg; jl7 17:30 BP 90 / 76; Pulse 93; Resp 23; Pulse Ox 100% on BiPAP; jl7 17:40 BP 85 / 72; Pulse 87; Resp 29; Pulse Ox 100% ; jl7 17:45 BP 100 / 74; Pulse 87; Resp 15; Pulse Ox 100% ; jl7 17:55 BP 101 / 76; Pulse 86; Resp 24; Pulse Ox 100% ; jl7 18:10 BP 102 / 75; Pulse 88; Resp 28; Pulse Ox 100% ; jl7 18:20 BP 93 / 72; Pulse 92; Resp 21; Pulse Ox 100% ; jl7 18:25 BP 89 / 63; Pulse 92; Resp 20; Pulse Ox 100% ; jl7 18:45 BP 104 / 68; Pulse 88; Resp 31 A; Temp 98.8(C); Pulse Ox 100% on BiPAP; jl7 Procedures: 16:31 Central Line: the site was prepped with Betadine, in sterile fashion, a triple lumen rn catheter was inserted, in the right femoral vein, in 1 attempts. placement was verified, by blood return, the site was dressed with Tegaderm, using sterile technique, the patient tolerated the procedure, well. MDM: 13:37 Patient medically screened. rn 15:09 ED course: Patient is more alert, respiratory rate improving, blood pressure improving, rn opens eyes and answers questions. ABG shows patient is compensating and PCO2 is 36. We will continue BiPAP and fluids with reevaluation. Will not intubate at this time.. 16:16 ED course: Patient continues to improve, mental status improving while placed on BiPAP. rn Consulted Dr. Horta who requests Lasix 160 mg IV for hyperkalemia. We will continue to monitor blood pressure and most likely place central line at this point.. 17:19 Differential Diagnosis: electrolyte abnormality, hypoglycemia, pneumonia, sepsis, UTI, rn volume depletion. Data reviewed: vital signs, nurses notes, lab test result(s), EKG, radiologic studies, plain films, and as a result, I will admit patient. 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 Interpretation: hypoxia. Plan: O2 by Mask applied. Counseling: I had a detailed discussion with the patient and/or guardian regarding: the historical points, exam findings, and any diagnostic results supporting the discharge/admit diagnosis, lab results, radiology results, the need for further work-up and treatment in the hospital. Response to treatment: the patient's symptoms have mildly improved after treatment, and as a result, I will admit patient. Admission orders: after a detailed discussion of the patient's condition and case, the admit orders are written by me. 01/24 13:39 Order name: Basic Metabolic Panel; Complete Time: 14:45 rn 01/24 13:39 Order name: Blood Culture Adult (2) rn 01/24 13:39 Order name: CBC with Diff; Complete Time: 16:56 rn 01/24 13:39 Order name: LFT's; Complete Time: 14:45 rn 01/24 13:39 Order name: Lactate; Complete Time: 14:45 rn 01/24 13:39 Order name: Lipase; Complete Time: 14:45 rn 01/24 13:39 Order name: Procalcitonin; Complete Time: 16:56 rn 01/24 13:39 Order name: Protime (+inr); Complete Time: 15:00 rn 01/24 13:39 Order name: Ptt, Activated; Complete Time: 15:00 rn 01/24 13:39 Order name: Troponin (emerg Dept Use Only); Complete Time: 14:45 rn 01/24 13:39 Order name: Urine Culture rn 01/24 13:39 Order name: Urine Microscopic Only; Complete Time: 15:00 rn 01/24 13:40 Order name: ABG; Complete Time: 14:45 rn 01/24 13:40 Order name: AMMONIA; Complete Time: 14:45 rn 01/24 14:02 Order name: Glucose, Ancillary Testing; Complete Time: 14:45 EDOK 01/24 14:04 Order name: Urine Dipstick-Ancillary EDOK 01/24 15:32 Order name: COVID-19/FLU A+B; Complete Time: 16:56 EDOK 01/24 16:39 Order name: Manual Differential; Complete Time: 16:56 EDOK 01/24 17:34 Order name: CK ll3 01/24 17:34 Order name: Cortisol ll3 01/24 17:34 Order name: Uric Acid ll3 01/24 17:34 Order name: TSH ll3 01/24 17:54 Order name: Cortisol EDMS 01/24 17:54 Order name: Creatine Phosphokinase EDMS 01/24 17:54 Order name: Ferritin EDMS 01/24 17:54 Order name: Folic Acid, (Folate) EDMS 01/24 17:55 Order name: Iron EDMS 01/24 17:55 Order name: PTH Intact EDMS 01/24 17:55 Order name: Transferrin Sat/Iron Binding EDMS 01/24 17:55 Order name: Ur Protein EDMS 01/24 17:55 Order name: UR SODIUM EDMS 01/24 17:55 Order name: Vitamin B12 Level EDMS 01/24 17:55 Order name: Magnesium EDMS 01/24 17:55 Order name: Magnesium EDMS 01/24 17:55 Order name: Magnesium EDMS 01/24 17:55 Order name: Magnesium EDMS 01/24 17:55 Order name: Magnesium EDMS 01/24 17:55 Order name: Magnesium EDMS 01/24 17:55 Order name: Renal Panel EDMS 01/24 17:55 Order name: Renal Panel EDMS 01/24 17:55 Order name: Renal Panel EDMS 01/24 17:55 Order name: Renal Panel EDMS 01/24 17:55 Order name: Renal Panel EDMS 01/24 17:55 Order name: Renal Panel EDMS 01/24 17:56 Order name: REILLY IFA Screen w/Reflex EDMS 01/24 17:56 Order name: Anti-Double Strand DNA Antibod EDMS 01/24 17:56 Order name: C-ANCA Anti-Proteinase 3 EDMS 01/24 17:56 Order name: Complement C3 EDMS 01/24 17:56 Order name: Complement C4 EDMS 01/24 17:56 Order name: Glomerular Basement Membrane EDMS 01/24 17:56 Order name: Hep B Core Ab, Tot/reflex IgM EDMS 01/24 17:56 Order name: Hep B Surface AG w/ Confirm EDMS 01/24 17:56 Order name: Hepatitis B Surface Ab,Quant EDMS 01/24 17:56 Order name: Hepatitis B Surface Antibody EDMS 01/24 17:56 Order name: Hepatitis C RNA, Quant (PCR) EDMS 01/24 17:56 Order name: HIV (1 EDMS 01/24 17:56 Order name: P-ANCA Anti-Myeloperoxidase Ab EDMS 01/24 17:56 Order name: Protein Electo w/M Ernie Serum EDMS 01/24 17:56 Order name: Retic Count EDMS 01/24 17:56 Order name: Rheumatoid Factor EDMS 01/24 13:39 Order name: Chest Single View XRAY; Complete Time: 14:45 rn 01/24 13:39 Order name: Accucheck; Complete Time: 14:03 rn 01/24 13:39 Order name: Cardiac monitoring; Complete Time: 14:03 rn 01/24 13:39 Order name: EKG - Nurse/Tech; Complete Time: 14:03 rn 01/24 13:39 Order name: IV Saline Lock - Large Bore; Complete Time: 14:03 rn 15 13:39 Order name: Labs collected and sent; Complete Time: 14:03 rn 01/24 13:39 Order name: O2 Per Protocol; Complete Time: 14:03 rn 01/24 17:56 Order name: Urinalysis EDMS 01/24 17:56 Order name: Vitamin D,1,25 Dihydroxy EDMS 01/24 17:57 Order name: Renal Ultrasound-Complete; Complete Time: 18:45 EDMS 01/24 18:03 Order name: CONS Physician Consult EDMS 01/24 18:03 Order name: Renal EDMS 01/24 18:04 Order name: CBC with Automated Diff EDMS 01/24 18:04 Order name: CBC with Automated Diff EDMS 01/24 18:04 Order name: CBC with Automated Diff EDMS 01/24 18:04 Order name: CBC with Automated Diff EDMS 01/24 18:04 Order name: Comprehensive Metabolic Panel EDMS 01/24 18:04 Order name: Comprehensive Metabolic Panel EDMS 01/24 18:04 Order name: Comprehensive Metabolic Panel EDMS 01/24 18:04 Order name: Comprehensive Metabolic Panel EDMS 01/24 18:04 Order name: Lactate EDMS 01/24 18:04 Order name: Lactate EDMS 01/24 18:04 Order name: NT PRO-BNP EDMS 01/24 18:04 Order name: NT PRO-BNP EDMS 01/24 18:04 Order name: Procalcitonin EDMS 01/24 18:04 Order name: Procalcitonin EDMS 01/24 18:04 Order name: Protime (+INR) EDMS 01/24 18:04 Order name: Protime (+INR) EDMS 01/24 18:04 Order name: PTT, Activated Partial Thromb EDMS 01/24 18:04 Order name: PTT, Activated Partial Thromb EDMS 01/24 18:08 Order name: Cortisol EDMS 01/24 18:43 Order name: Lactate Sepsis 2 HR Follow-up; Complete Time: 18:45 EDMS 01/25 00:15 Order name: Glucose, Ancillary Testing EDMS 01/25 01:34 Order name: Glucose, Ancillary Testing EDMS 01/25 03:07 Order name: Glucose, Ancillary Testing EDMS 01/25 03:19 Order name: Amylase EDMS 01/25 03:19 Order name: Lipase EDMS 01/25 04:19 Order name: Glucose, Ancillary Testing EDMS 01/25 04:52 Order name: Blood Culture EDMS 01/25 06:38 Order name: ABG Arterial Blood Gas EDMS 01/25 07:07 Order name: Glucose, Ancillary Testing EDMS 01/25 09:01 Order name: Glucose, Ancillary Testing EDMS 01/25 11:44 Order name: CBC with Automated Diff EDMS 01/25 11:49 Order name: Lactate EDMS 01/25 12:12 Order name: Basic Metabolic Panel EDMS 01/25 12:12 Order name: NT PRO-BNP EDMS 01/25 12:12 Order name: Magnesium EDMS 01/25 12:16 Order name: Glucose, Ancillary Testing EDMS 01/25 12:33 Order name: CBC Smear Scan EDMS 01/25 12:40 Order name: Procalcitonin EDMS 01/25 17:39 Order name: Glucose, Ancillary Testing EDMS 01/25 18:42 Order name: Urine Microscopic Only EDMS 01/26 06:29 Order name: ABG Arterial Blood Gas EDMS 01/26 11:06 Order name: RAD EDMS 01/26 12:28 Order name: Glucose, Ancillary Testing EDMS 01/26 13:05 Order name: CT EDMS 01/26 16:24 Order name: Glucose, Ancillary Testing EDMS 01/26 20:47 Order name: Glucose, Ancillary Testing EDMS 01/24 13:39 Order name: O2 Sat Monitoring; Complete Time: 14:03 rn 01/24 13:39 Order name: Urine Dipstick-Ancillary (obtain specimen); Complete Time: 14:03 rn 01/24 13:39 Order name: Hancock; Complete Time: 14:03 rn 01/24 14:22 Order name: Labs - recollect needed: please recollect coags (blue top); Complete Time: em1 14:40 EC:50 Rate is 89 beats/min. Rhythm is regular. Left axis deviation noted. QRS is positive in rn lead I and negative in lead aVF. RI interval is normal. QRS interval is normal. QT interval is normal. No Q waves. T waves are Normal. No ST changes noted. Clinical impression: Sinus tachycardia. Interpreted by me. Reviewed by me. Administered Medications: 13:42 Drug: NS 0.9% 1000 ml Route: IV; Rate: 1000 ml; Site: right antecubital; ll3 14:03 Drug: NS 0.9% 1000 ml Route: IV; Rate: 1000 ml; Site: right antecubital; ll3 17:19 Follow up: Response: No adverse reaction; IV Status: Completed infusion; IV Intake: ll3 1000ml 15:09 Drug: Zosyn (piperacillin-tazobactam) 3.375 grams Route: IVPB; Infused Over: 60 mins; ap3 Site: right antecubital; 16:20 Follow up: Response: No adverse reaction; IV Status: Completed infusion ll3 17:15 Drug: Levophed (norepinephrine) (4 mg/250 mL D5W 4 mcg/min Route: IV; Rate: calculated ll3 rate; Site: right femoral; 17:20 Follow up: Rate change 10 mcg/min ll3 17:21 Follow up: Rate change 5 mcg/min ll3 17:55 Drug: Lasix (furosemide) 40 mg Route: IVP; Site: right femoral; jl7 18:15 Follow up: Response: No adverse reaction; infusion complete jl7 18:09 Not Given (Dr. Hebert changed order): Lasix (furosemide) 160 mg IVP once; give over 2 jl7 minutes Disposition: 17:19 Critical Care:. 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 Total time: 40 minutes Signatures: Dispatcher [employer] EDMS Sergio Combs MD MD rn Martinez, Eric em1 Leal, Jahala, RN RN jl7 Thania Mesa RN RN Eloise Veras RN RN eb1 Earle Quiroz, RN RN ll3 Corrections: (The following items were deleted from the chart) :53 13:43 Family history: not pertinent, rn ll3 :53 13:43 Hospitalizations: No recent hospitalization is reported. rn ll3 :53 13:43 The history from the nurse's notes was reviewed. rn brett3 15:32 13:40 SARS-COV-2 RT PCR+MOL.LAB.BRZ ordered. EDOK EDOK 15:32 13:40 Influenza Screen (A \T\ B)+BA.LAB.BRZ ordered. [facility] EDOK 21: 17:21 Intensive Care Unit rn eb1 21: 17:21 rn eb1
[2021-01-24] MEDS ORDERED: NA CHLORIDE 0.9% 50 ML ONE (17:29)
[2021-01-24] MEDS ORDERED: GLUCAGON 1 MG/VIAL IM PRN ×2 (17:52→18:03)
[2021-01-24] MEDS ORDERED: D50W 25 GM/50 ML SYRINGE IV PRN ×2 (17:52→18:03)
[2021-01-24] MEDS ORDERED: ACETAMINOPHEN 500 MG TAB PO PRN (17:57)
[2021-01-24] MEDS ORDERED: ONDANSETRON 4 MG/2 ML VIAL IV PRN (17:57)
[2021-01-24] MEDS: Levofloxacin500mg IV 500 MG/100 ML BAG IV SCH (18:00)
[2021-01-24] MEDS: NACHLORIDE 0.45% 1,000 ML with NA BICARB 8.4% 75 MEQ IV SCH ×2 (18:00)
[2021-01-24] MEDS ORDERED: ALBUTEROL 2.5 MG/3 ML NEB SOL NEB ONE (18:00)
[2021-01-24] MEDS ORDERED: INSULIN -REGULAR HUMAN 50 UNIT/0.5 ML ML IV ONE (18:00)
[2021-01-24] MEDS ORDERED: INSULIN -REGULAR HUMAN 100 UNIT in NA CHLORIDE 0.9% 100 ML IV SCH (18:15)
--- NOTE | 2021-01-24 18:36 | CON ---
Date of Consultation: 01/24/2021 Reason For Consultation: Elevated BUN and creatinine, hyperkalemia. History Of Present Illness: This is a pleasant 61-year-old gentleman. All the information has been obtained from the record and from the nephew by bedside with significant past medical history of hep C complicated with cirrhosis, lung mass, gout, diabetes complicated with neuropathy, the patient apparently brought by the sister because of altered mental status. The patient brought to the hospital with altered mental status . Found to have low blood pressure and elevation in BUN and creatinine. For that reason, we have been consulted. There is no mention of taking any nonsteroidal. No recent exposure to any documented contrast. Upon arrival to the hospital, the patient had low blood pressure and required Levophed. Primary workup showed creatinine 6.2 with GFR of 9 and hyperkalemia 5.9. The patient received 3 L of normal saline. Still blood pressure is marginal and the patient had minimum urine output, only less than 200, dark urine. Past Medical History: Includes; 1. Diabetes complicated with neuropathy. 2. Hypertension. 3. Cirrhosis. 4. Hep C. 5. Lung mass. 6. Gout. Family History: None obtainable. Social History: Active alcohol, the rest none obtainable. Past Surgical History: Includes tonsillectomy, hernia repair. Review of Systems: None obtainable. Allergies: NO KNOWN DRUGS ALLERGY. Home Medications: None obtainable. Physical Examination: Vital Signs: When I saw the patient; blood pressure 89/50, pulse of 88. Chest: Crackles bilateral base. Heart: S1, S2. Systolic murmur. Abdomen: Soft, nontender. Extremity: Trace edema. Neuro: The patient on BiPAP. Awake, opens eyes spontaneously, moving 4 extremities without any focality. No tremor. Laboratory Data: Sodium 138, potassium 5.9, bicarb 17, BUN 105, creatinine 6.2, blood sugar 331, calcium 8.2, AST 227, ALT 166. Albumin 1.6, corrected calcium is 10. Back in December; creatinine 0.9, WBC 25.6, H and H 11.8/36, and platelets 494. INR of 1.1. ABG; pH 7.29, CO2 39, O2 143, base axis -8. Current Medications: The patient on include IV fluid. Assessment And Plan: 1. Acute kidney injury secondary to prerenal, oliguric, complicated with hyperkalemia and acidosis. The patient received 3 L of IV fluid. I am going to start the patient on bicarb drip given the presence of hyperkalemia and we will give the patient a trial of diuresis to convert him to nonoliguric and we will follow up the patient. 2. High anion gap, metabolic acidosis, possible secondary to diabetic ketoacidosis. We will start the patient on diabetic ketoacidosis protocol and we will start the patient on bicarb drip. 3. Acute kidney injury. Our differential diagnosis is prerenal. 4. Hepatorenal. I am going to send for urine electrolytes, protein creatinine, and we will send for renal ultrasound and we will follow up. We will try to obtain records from the family if they are available and we will follow up. As I mentioned, we will give the patient gentle 1 dose of Lasix and we will follow up. 5. Sepsis with septic shock. Continue Levophed, start aggressive antibiotic cover. We will follow up the culture. 6. Hyperkalemia secondary to renal failure with the presence of the anemia. To rule out gastrointestinal bleed, we will send for stool occult and we will start resuscitation. We will start the patient on insulin drip. We will give the patient a single dose of Lasix and we will follow up. 7. Hyperglycemia with possible diabetic ketoacidosis. As above, we will start the patient on insulin drip per protocol. 8. Respiratory failure secondary to possible pneumonia. We will start joyce- coverage. time spend exam the patient face to face , placing order , review the date lab and radiology , discussed the case with promotions team leader including nursing , and other [employer] financials consultant and hospitalist 65 min BRANDY Voice ID: [id number] Report ID: [id number] HILLARY
--- NOTE | 2021-01-24 18:36 | RAD REPORT ---
EXAM DESCRIPTION: US - Renal Ultrasound-Complete - 01/24/2021 6:25 pm CLINICAL HISTORY: Acute renal failure COMPARISON: None. FINDINGS: The right kidney measures 11 cm with an increased echotexture. 3.8 centimeters cyst The left kidney measures 11 cm with an increased echotexture. Hydronephrosis is not seen. A Hancock catheter is present within a decompressed bladder. IMPRESSION: Increased renal echotexture consistent with parenchymal disease
[2021-01-24 18:46] LABS: Thyroid Stimulating Hormone 0.444 uIU/mL (0.360-3.740); Uric Acid 14.5 mg/dL (3.5-7.2)
[2021-01-24] MEDS ORDERED: IPRATROPIUM BROM 0.5MG/2.5ML ONE (19:53)
[2021-01-24] MEDS: IPRATROPIUM BROM 0.5MG/2.5ML NEB SCH (20:00)
[2021-01-24] MEDS: INSULIN -REGULAR HUMAN 50 UNIT/0.5 ML ML SQ SCH (21:00)
[2021-01-24] MEDS: HEPARIN 5000 UNIT/ML 1 ML VIAL SQ SCH (21:00)
--- NOTE | 2021-01-25 00:16 | P.HP ---
Certification for Inpatient Patient admitted to: Inpatient With expected LOS: >2 Midnights Patient will require the following post-hospital care: None Practitioner: I am a practitioner with admitting privileges, knowledge of patient current condition, hospital course, and medical plan of care. Services: Services provided to patient in accordance with Admission requirements found in Title 42 Section 412.3 of the Code of Federal Regulations Patient History Date of Service: 01/24/21 Reason for admission: Septic shock History of Present Illness: patient is a 61yo who presents to the ER with pneumonia and septic shock. patient had not been feeling well for the last few days. His clinical symptoms gradually worsened. He came into the ER for further evaluation. He does answer some of my questions. But he is very difficult to understand. He is very lethargic. He tells me he has not been feeling well for the last few days. He is not really sure what's wrong but he just feels like he needs to sleep. Cannot keep himself awake. In the ER, he was found to be hypoxic and hypotensive. His chest x-ray revealed a pneumonia. He was started on IV fluids and vasopressors. His labs showed that his creatinine was elevated significantly. He was admitted to the hospital for further evaluation. Allergies No Known Allergies Allergy (Verified 10/28/17 22:51) Home Medications: Insulin 70/30 NPH/Reg Human [Novolin 70/30*] 10 units SQ 1800 10/28/17 Insulin 70/30 NPH/Reg Human [Novolin 70/30*] 20 units SQ 0600 10/28/17 Metoprolol Tartrate [Lopressor] 25 mg PO BID 30 Days #60 tab 10/29/17 lisinopriL [Lisinopril] 20 mg PO DAILY 30 Days #30 tablet 10/29/17 - Past Medical/Surgical History Diabetic: Yes -: Hypertension -: IDDM -: Hepatitis C -: dislocated hip -: Tonsillectomy -: Hernia repair - Family History Father Family History: Reviewed- Non-Contributory - Social History Smoking Status: Former smoker Alcohol use: No CD- Drugs: Yes Review of Systems is unable to be obtained Physical Examination - Vital Signs Temperature: 100 F Blood Pressure: 70/50 Pulse: 100 Respirations: 28 Pulse Ox (%): 70 - Physical Exam General: Alert, Confused, Other (He answers my questions well but he is lethargic.) HEENT: Atraumatic, Normocephalic Neck: Supple, 2+ carotid pulse no bruit, JVD not distended, No Thyromegaly Respiratory: Diminished, Rhonchi/gurgles Cardiovascular: Regular rate/rhythm Gastrointestinal: Normal bowel sounds, Soft and benign, Non-distended Musculoskeletal: No clubbing, No swelling Integumentary: No rashes Neurological: Abnormal gait, Abnormal speech, Abnormal strength, Abnormal cranial nerve function - Studies Laboratory Data (last 24 hrs) 01/24/21 14:28: PT 13.7 H, INR 1.19, APTT 21.3 L 01/24/21 13:51: Uric Acid 14.5 H 01/24/21 13:51: WBC 25.60 H*, Hgb 11.8 L, Hct 36.0 L, Plt Count 492 H 01/24/21 13:51: Sodium 138, Potassium 5.9 H*, BUN 105 H, Creatinine 6.29 H*, Glucose 331 H, Total Bilirubin 0.4, AST 227 H, ALT 166 H, Alkaline Phosphatase 59, Lipase 121 Assessment & Plan - Problems (Diagnosis) (1) Pneumonia Current Visit: Yes Status: Acute (2) Septic shock Current Visit: Yes Status: Acute (3) Hypoxia Current Visit: Yes Status: Acute (4) MESFIN (acute kidney injury) Current Visit: Yes Status: Acute (5) Other chronic hepatitis, not elsewhere classified Current Visit: Yes Status: Acute - Plan Plan: 1. Broad-spectrum antibiotic coverage 2. IV hydration-nephrology has recommended saline with bicarb 3. Blood cultures 4. Monitor procalcitonin level 5. Pulmonary consultation 6. Nephrology consultation 7. Echocardiogram 8. Wean him off the BiPAP slowly 9. Repeat chest x-ray in the morning 10. Strict input and output 11. GI and DVT prophylaxis Discharge Plan: Usp Plan to discharge in: Greater than 2 days - Advance Directives Does patient have a Living Will: No Does patient have a Durable POA for Healthcare: No
[2021-01-25] MEDS: PIPER TAZO 2.25 GM in NA CHLORIDE 0.9% 50 ML IV SCH ×2 (01:00→09:31)
[2021-01-25] MEDS ORDERED: IPRATROPIUM BROM 0.5MG/2.5ML ONE ×4 (01:34→19:34)
[2021-01-25] MEDS: IPRATROPIUM BROM 0.5MG/2.5ML NEB SCH ×4 (01:35→20:15)
[2021-01-25 03:08] LABS: Basophils % 0.2 % (0-1.3); Hematocrit 39.6 % (39.6-49.0); Lymphocytes % 2.3 % (15.3-44.8); MPV 9.3 fL (7.6-11.3)
[2021-01-25 03:09] LABS: Absolute Lymphocytes (CBC) 0.7 K/uL (0.7-4.9)
[2021-01-25 03:17] LABS: Protime INR 1.11
[2021-01-25 03:19] LABS: Amylase 65 U/L (25-115); Lipase 213 U/L (73-393)
--- NOTE | 2021-01-25 03:22 | P.INFCA ---
Sepsis Focused Assessment - Focused Assessment Complete? Sepsis Focused Assessment Completed?: Yes - Sepsis Screen Result Severe Sepsis: Positive Septic Shock: Positive - Evaluation Current stage of sepsis: Septic shock - Vital Signs Reviewed: Yes Temperature: 100 F Heart rate: 97 Blood Pressure: 91/70 Respiratory Rate: 29 O2 Sat by Pulse Oximetry: 100 - Examination Date exam was performed: 01/25/21 Time exam was performed: 03:21 Heart: Regular rate/rhythm, S1, S2, Tachycardia Lungs: Diminished air movement, Rhonchi Peripheral pulses: 3+ Normal Peripheral pulse location: Radial Capillary refill: <2 Seconds Skin examination: Normal turgor <Karson Smith - Last Filed: 01/25/21 03:20> - Examination Comments: Agree with findings as mentioned above <Alexa Yuan - Last Filed: 01/25/21 05:56>
[2021-01-25] MEDS ORDERED: PIPERACIL/TAZO 2.25 GM VIAL IV ONE ×2 (03:53→09:20)
[2021-01-25 04:14] LABS: Albumin 1.9 g/dL (3.4-5.0); Bilirubin Total 0.4 mg/dL (0.2-1.0); Ferritin 1677.7 ng/mL (26-388); Folic Acid, (Folate) 10.1 ng/mL (3.1-17.5); Magnesium 2.2 mg/dL (1.8-2.4); Phosphorus 2.8 mg/dL (2.5-4.9); Potassium 5.5 mmol/L (3.5-5.1); Protein, Total 7.7 g/dL (6.4-8.2)
[2021-01-25] MEDS: NACHLORIDE 0.45% 1,000 ML with NA BICARB 8.4% 75 MEQ IV SCH ×6 (04:45→15:30)
[2021-01-25 06:36] LABS: Arterial Blood Carboxyhemoglob 0.7 % (0-1.5); Blood Gas Oxyhemoglobin 96.3 % (94-97); Blood O2 Saturation 98.1 % (92-98.5)
[2021-01-25] MEDS ORDERED: NOREPINEPHRINE 4 MG/4 ML VIAL ONE (06:47)
[2021-01-25] MEDS ORDERED: D5W 250 ML IV ONE (06:50)
[2021-01-25] MEDS: INSULIN -REGULAR HUMAN 50 UNIT/0.5 ML ML SQ SCH ×4 (07:30→21:00)
[2021-01-25] MEDS ORDERED: NOREPINEPHRINE 4 MG in D5W 250 ML IV SCH (08:00)
[2021-01-25] MEDS ORDERED: NA CHLORIDE 0.9% 50 ML ONE (09:20)
[2021-01-25] MEDS ORDERED: HEPARIN 5000 UNIT/ML 1 ML VIAL ONE ×2 (09:20→22:56)
[2021-01-25] MEDS: HEPARIN 5000 UNIT/ML 1 ML VIAL SQ SCH ×2 (09:32→23:22)
[2021-01-25 11:36] LABS: Absolute Lymphocytes (CBC) 0.7 K/uL (0.7-4.9); Basophils % 0.3 % (0-1.3); Hematocrit 37.4 % (39.6-49.0); Lymphocytes % 2.5 % (15.3-44.8); MPV 9.1 fL (7.6-11.3); RBC Red Blood Cell Count 3.96 M/uL (4.33-5.43)
[2021-01-25] MEDS ORDERED: NA CHLORIDE 0.9% 250 ML IV ONE ×2 (11:46→11:47)
[2021-01-25] MEDS ORDERED: NA CHLORIDE 0.9% 500 ML ONE (11:58)
[2021-01-25 12:02] LABS: Magnesium 2.1 mg/dL (1.8-2.4)
[2021-01-25 12:12] LABS: Potassium 5.7 mmol/L (3.5-5.1)
--- NOTE | 2021-01-25 12:26 | P.PN ---
Subjective Date of Service: 01/25/21 Chief Complaint: Septic shock Subjective: No new changes (More awake, weaned off to nasal cannula O2 overnight Still intermittently drowsy still on IV pressors with Levophed Still on bicarb drip Making slightly more urine now) Physical Examination - Vital Signs Temperature: 98.2 F Blood Pressure: 88/64 Pulse: 103 Respirations: 32 Pulse Ox (%): 93 - Physical Exam General: In no apparent distress, Other (Intermittently drowsy) HEENT: Atraumatic, Normocephalic, PERRLA Neck: Supple, 2+ carotid pulse no bruit, JVD not distended Respiratory: Diminished, Crackles/rales Cardiovascular: No edema, Regular rate/rhythm, Normal S1 S2 Gastrointestinal: Normal bowel sounds, Soft and benign, No ascites Musculoskeletal: No clubbing, No swelling Integumentary: No rashes, No breakdown Neurological: Normal speech, Normal strength at 5/5 x4 extr Urinary: Hancock catheter - Studies Laboratory Data (last 24 hrs) 01/24/21 14:28: PT 13.7 H, INR 1.19, APTT 21.3 L 01/24/21 13:51: Uric Acid 14.5 H 01/24/21 13:51: WBC 25.60 H*, Hgb 11.8 L, Hct 36.0 L, Plt Count 492 H 01/24/21 13:51: Sodium 138, Potassium 5.9 H*, BUN 105 H, Creatinine 6.29 H*, Glucose 331 H, Total Bilirubin 0.4, AST 227 H, ALT 166 H, Alkaline Phosphatase 59, Lipase 121 Microbiology Data (last 24 hrs): 01/24/21 14:05 Blood - Blood Anaerobic Blood Culture - Final Assessment And Plan - Current Problems (Diagnosis) (1) MESFIN (acute kidney injury) Current Visit: Yes Status: Acute (2) Hypoxia Current Visit: Yes Status: Acute (3) Other chronic hepatitis, not elsewhere classified Current Visit: Yes Status: Acute (4) Pneumonia Current Visit: Yes Status: Acute (5) Septic shock Current Visit: Yes Status: Acute - Plan Acute kidney injury Septic shock Bilateral pneumonia Acute rhabdomyolysis Acute respiratory failure with hypoxia Persistent hypotension Metabolic acidosisimproving Hyperkalemiaborderline improving History of hepatitis C Plan Continue O2 as tolerated Continue IV pressors and wean down We will add p.o. midodrine to optimize blood pressure Continue bicarb/Lasix diuresis per nephrology Continue to monitor CK level as well as creatinine trend Continue empiric antibiotics Do BiPAP overnight if still short of breath Continue DVT prophylaxis as well as GI prophylaxis
[2021-01-25 12:32] LABS: White Blood Cell Scan OK (OK)
[2021-01-25 12:33] LABS: Blood Morphology Comment NOT SEEN (NOT SEEN); Platelet Estimate INCR
--- NOTE | 2021-01-25 12:45 | P.CNS ---
Date of Consult: 01/25/21 Reason for Consult: Septic shock Chief Complaint: Septic shock History of Present Illness: Patient is 61 years of age presented to the emergency room with pneumonia and septic shock acute renal failure is doing a little better today still on Levophed chest x-ray shows a left lung pneumonia somewhat disoriented mentally he is improved he has been sick for about a week or so p also has ATN with hyperkalemia Allergies No Known Allergies Allergy (Verified 10/28/17 22:51) Home Medications: Insulin 70/30 NPH/Reg Human [Novolin 70/30*] 10 units SQ 1800 10/28/17 Insulin 70/30 NPH/Reg Human [Novolin 70/30*] 20 units SQ 0600 10/28/17 Metoprolol Tartrate [Lopressor] 25 mg PO BID 30 Days #60 tab 10/29/17 lisinopriL [Lisinopril] 20 mg PO DAILY 30 Days #30 tablet 10/29/17 - Past Medical/Surgical History Diabetic: Yes -: Hypertension -: IDDM -: Hepatitis C -: dislocated hip -: Tonsillectomy -: Hernia repair - Family History Father Family History: Reviewed- Non-Contributory - Social History Smoking Status: Unknown if ever smoked Alcohol use: No CD- Drugs: Yes Caffeine use: Yes Review of Systems General: Weakness Respiratory: Shortness of Breath Physical Examination Temp Pulse Resp BP Pulse Ox 98.2 F 103 H 32 H 88/64 L 93 01/25/21 12:26 01/25/21 12:26 01/25/21 12:26 01/25/21 12:26 01/25/21 12:26 General: Alert, Cooperative Respiratory: Crackles/rales (Crackles on the left side) Cardiovascular: No edema, Regular rate/rhythm, Normal S1 S2 Laboratory Data (last 24 hrs) 01/24/21 14:28: PT 13.7 H, INR 1.19, APTT 21.3 L 01/24/21 13:51: Uric Acid 14.5 H 01/24/21 13:51: WBC 25.60 H*, Hgb 11.8 L, Hct 36.0 L, Plt Count 492 H 01/24/21 13:51: Sodium 138, Potassium 5.9 H*, BUN 105 H, Creatinine 6.29 H*, Glucose 331 H, Total Bilirubin 0.4, AST 227 H, ALT 166 H, Alkaline Phosphatase 59, Lipase 121 - Problems (1) Septic shock Current Visit: Yes Status: Acute Plan: Patient is 61 years of age admitted with septic shock left lung pneumonia white count is significantly elevated patient was hypoxic on admission is still hypotensive continue with IV fluid boluses patient is currently on Zosyn and await blood cultures he does not smoke most likely is pneumococcal pneumonia
[2021-01-25] MEDS ORDERED: FUROSEMIDE 40 MG/4 ML VIAL IV ONE (13:00)
[2021-01-25] MEDS ORDERED: SODIUM CHLORIDE 0.9% 10ML INJ IV PRN (13:01)
[2021-01-25] MEDS ORDERED: D50W 25 GM/50 ML SYRINGE IV PRN (13:03)
[2021-01-25] MEDS ORDERED: GLUCAGON 1 MG/VIAL IM PRN (13:03)
[2021-01-25] MEDS ORDERED: INSULIN -REGULAR HUMAN 50 UNIT/0.5 ML ML IV ONE (13:04)
[2021-01-25] MEDS ORDERED: ALBUTEROL 2.5 MG/3 ML NEB SOL NEB ONE (13:04)
[2021-01-25] MEDS ORDERED: PANTOPRAZOLE 40 MG INJ ONE ×2 (13:14→22:56)
[2021-01-25] MEDS ORDERED: NS 0.9% VIAL 10 ML ONE (13:15)
[2021-01-25] MEDS ORDERED: INSULIN -REGULAR HUMAN 50 UNIT/0.5 ML ML ONE ×2 (13:15→18:03)
[2021-01-25] MEDS ORDERED: FUROSEMIDE 40 MG in NA CHLORIDE 0.9% 50 ML IV ONE (13:15)
[2021-01-25] MEDS: PANTOPRAZOLE 40 MG INJ IVP SCH ×2 (13:17→21:00)
[2021-01-25] MEDS ORDERED: ALBUTEROL 2.5 MG/3 ML NEB SOL ONE (13:33)
[2021-01-25] MEDS: MIDODRINE HCL 5 MG TABLET PO SCH ×3 (14:31→21:00)
[2021-01-25] MEDS: ALBUMIN HUMAN 25% 100 ML IV SCH ×2 (14:32→22:00)
--- NOTE | 2021-01-25 14:51 | PN ---
Date of Progress Note: 01/25/2021 Subjective: The patient was admitted with altered mental status, acute kidney injury. Yesterday, co navyad not obtain any record from the patient. The patient today is more awake. The patient yesterday had severe acidosis, hyperkalemia, and renal failure with septic shock. The patient required to be o n Levophed. The patient to start weaning. Physical Examination: Vital Signs: When I saw the patient; blood pressure 101/60, pulse of 114. Chest: Crackles bilateral. Heart: S1, S2. Systolic murmur. Tachycardic. Abdomen: Soft, nontender. Extremities: Trace edema. Neurologic: Alert. No focality, slurred speech. Laboratory Data: Chest x-ray; cardiomegaly with mild marginal congestion, pleural effusion on the le ft side. WBC 30.1, H and H 12.3/37.4, sodium 138, potassium 5.7, bicarb 19, BUN 138, creatinine 6.3, GFR of 9, calcium 9.5, and magnesium 2.1. BNP 616. Iron saturation of 19; ferritin 1677; CK 3800, yesterday was 5500. PTH 566. Cortisol 128. Assessment And Plan: 1.Acute kidney injury, non-oliguric, marginal hyperkalemia. Acidosis has been resolved. I had long discussion with the patient in the presence of the brother regarding that. If kidney function dora nued to not improve, the patient may need renal replacement therapy. The patient on agreement. We w ill watch for another 24-hour. If there is no improvement, we will proceed with dialysis. 2.Hypertension, currently hypotension because of the shock. 3.Acidosis, high anion gap metabolic acidosis, multifactorial, secondary to poor perfusion/lactic ac idosis/diabetic ketoacidosis. The patient was switched on insulin. I am going to continue the bicar b and we will follow up. 4.Rhabdomyolysis with the presence of acute kidney injury and the hyperkalemia. I am going to dora nue with the bicarb drip. 5.Acidosis, high anion gap metabolic acidosis, currently start to closing. We will continue bicarb drip. 6.Hyperkalemia secondary to rhabdomyolysis. The patient is nonoliguric. I am going to give the pat ient a single dose of Lasix. I am going to give albuterol and insulin and we will follow up. 7.Diabetes with diabetic ketoacidosis as above. We will follow up with the primary. 8.Leukocytosis secondary to sepsis. We will continue current antibiotic. Follow up with the primar y. 9.Septic shock. Continue current antibiotic. Follow up culture. Continue current support with the Levophed. The patient was started on midodrine. 10.Cirrhosis as by primary. 11.If kidney function did not improve, the patient is going to have the diagnosis of hepatorenal. I am going to start the patient on midodrine. I am going to give the patient albumin as fluid expansi on. We will continue intravenous fluids. Again, if urine electrolyte or non-improvement in the kidn ey function, the patient may have hepatorenal syndrome. At that time, we will consider renal replace ment therapy. SANTIAGO/MODL Voice ID: [id number] Report ID: [id number]
[2021-01-25] MEDS ORDERED: INFLUENZA VACCINE (for 6+ mo) 0.5 ML DOSE IMVAC ONE (17:00)
[2021-01-25] MEDS ORDERED: Levofloxacin500mg IV 500 MG/100 ML BAG IV ONE (17:01)
[2021-01-25] MEDS: Levofloxacin500mg IV 500 MG/100 ML BAG IV SCH (17:21)
[2021-01-25 18:30] LABS: Urine Appearance TURBID (Clear); Urine Bilirubin NEGATIVE (Negative); Urine Blood 3+ (Negative); Urine Color YELLOW (Yellow); Urine Glucose TRACE (Negative); Urine Protein NEGATIVE (Negative); Urine Urobilinogen 0.2 mg/dL (0.2-1.0); Urine pH 5.5 (5.0-7.0)
[2021-01-25 18:33] LABS: Urine Microscopic Reflex ORDER UMIC
[2021-01-25 18:42] LABS: Urine Amorphous Sediment 2+ /HPF (NONE SEEN); Urine Bacteria <20 /HPF (NONE SEEN); Urine Mucus 2+ /HPF (NONE SEEN)
[2021-01-25] MEDS: OCTREOTIDE ACETATE 100 MCG/ML SQ SCH (21:00)
[2021-01-25] MEDS: PIPER TAZO 3.375 GM in NA CHLORIDE 0.9% 100 ML IV SCH (21:00)
[2021-01-25 21:48] LABS: Urine Protein/Creatinine Ratio 1.06 ratio (<0.15)
[2021-01-25] MEDS ORDERED: NA CHLORIDE 0.9% 100 ML ONE (22:45)
[2021-01-25] MEDS ORDERED: PIPERACIL/TAZO 3.375 GM VIAL IV ONE (22:45)
[2021-01-25] MEDS ORDERED: OCTREOTIDE ACETATE 100 MCG/ML ONE (22:57)
[2021-01-26] MEDS: IPRATROPIUM BROM 0.5MG/2.5ML NEB SCH ×4 (01:45→19:40)
[2021-01-26] MEDS ORDERED: IPRATROPIUM BROM 0.5MG/2.5ML ONE ×4 (01:48→19:30)
[2021-01-26] MEDS: NACHLORIDE 0.45% 1,000 ML with NA BICARB 8.4% 75 MEQ IV SCH ×6 (02:15→09:38)
--- NOTE | 2021-01-26 06:10 | P.PN ---
Subjective Date of Service: 01/26/21 Chief Complaint: Septic shock Subjective: Other (C/o SOB. On bipap.) Physical Examination - Vital Signs Temperature: 98.9 F Blood Pressure: 91/64 Pulse: 101 Respirations: 22 Pulse Ox (%): 94 - Physical Exam General: Acute distress HEENT: Atraumatic, Normocephalic, Other (+bipap) Neck: Supple Respiratory: Other (symmetric chest expansion; +inc work of breathing) Cardiovascular: No rubs, No murmurs Gastrointestinal: Soft and benign, Non-distended Musculoskeletal: Swelling (+trace BLE edema) Integumentary: No warmth, Other (+spider angiomas on anterior torso) Neurological: Normal tone Urinary: Hancock catheter External genitalia: Deferred Rectal: Deferred - Studies Microbiology Data (last 24 hrs): 01/24/21 14:05 Blood - Blood Anaerobic Blood Culture - Final Assessment And Plan - Plan 1. Acute kidney injury 2/2 rhabdomyolysis + HRS1 + ATN/sepsis. Improving. S Cr improved from 6.3 to 4.9. Baseline SCr 0.9-1.1 as of 12/22/20. CPK level decreasing, monitor. Strict I/O. Monitor renal panel. Increase midodrine to 15 mg po tid. Avoid net neg fluid balance. 2. Septic shock 2/2 PNA. Extremities warm. Shock likely from sepsis. Improved w/ IV fluids & abx BNP elevated. Trop neg. Increase midodrine to 15 mg po tid. 3. Acute hypoxic respi failure. On bipap. Per other services. 4. AGMA. Resolved. Dc bicarb therapy. 5. Acidosis, high anion gap metabolic acidosis, currently start to closing. We will continue bicarb drip. 6. Hyperkalemia. Improved. Monitor. 7. DM2. Mngt per primary team. 8. HCV cirrhosis, decompensated, with ascites. Per primary team. 9. Secondary hyperPTH. iPTH 567. Monitor.
[2021-01-26 06:27] LABS: Arterial Blood Carboxyhemoglob 1.1 % (0-1.5)
[2021-01-26 06:41] LABS: Absolute Lymphocytes (CBC) 1.2 K/uL (0.7-4.9); Basophils % 0.1 % (0-1.3); MPV 8.9 fL (7.6-11.3); RBC Red Blood Cell Count 3.42 M/uL (4.33-5.43)
[2021-01-26] MEDS: ALBUMIN HUMAN 25% 100 ML IV SCH ×3 (06:43→22:06)
[2021-01-26 07:02] LABS: Albumin 2.1 g/dL (3.4-5.0); Bilirubin Total 0.5 mg/dL (0.2-1.0); Magnesium 1.8 mg/dL (1.8-2.4); Potassium 3.9 mmol/L (3.5-5.1); Protein, Total 6.6 g/dL (6.4-8.2)
[2021-01-26 07:25] LABS: Rheumatoid Factor NEG (NEG)
--- NOTE | 2021-01-26 08:02 | ECHO ---
HEIGHT: 5 ft 10 in WEIGHT: 229 lb 15.074 oz DATE OF STUDY: 01/25/[address]: Alexa Yuan MD 2-DIMENSIONAL: YES M.MODE: YES DOPPLER: YES COLOR FLOW: YES TDS: YES PORTABLE: YES DEFINITY: NO BUBBLE STUDY: NO DIAGNOSIS: SEPTIC SHOCK CARDIAC HISTORY: CATHERIZATION: NO SURGERY: NO PROSTHETIC VALVE: NO PACEMAKER: NO MEASUREMENTS (cm) DIASTOLIC (NORMALS) SYSTOLIC (NORMALS) IVSd 0.9 (0.6-1.2) LA Diam 2.5 (1.9-4.0) LVEF 82% LVIDd 4.1 (3.5-5.7) LVIDs 2.0 (2.0-3.5) %FS 50% LVPWd 1.0 (0.6-1.2) Ao Diam 2.9 (2.0-3.7) 2 DIMENSIONAL ASSESSMENT: RIGHT ATRIUM: NORMAL LEFT ATRIUM: NORMAL RIGHT VENTRICLE: NORMAL LEFT VENTRICLE: HYPERDYNAMIC TRICUSPID VALVE: MITRAL VALVE: PULMONIC VALVE: NORMAL AORTIC VALVE: NORMAL PERICARDIAL EFFUSION: NONE AORTIC ROOT: NORMAL LEFT VENTRICULAR WALL MOTION: HYPERDYNAMIC LEFT VENTRICLE. DOPPLER/COLOR FLOW: SEE BELOW. COMMENTS: HYPERDYNAMIC LEFT VENTRICLE WITH EJECTION FRACTION > 70%. MILD TRICUSPID AND MITRAL REGURGITATION. TECHNOLOGIST: Leslee ORTIZ
[2021-01-26] MEDS ORDERED: INSULIN -REGULAR HUMAN 50 UNIT/0.5 ML ML ONE ×4 (08:25→20:38)
[2021-01-26] MEDS ORDERED: PIPERACIL/TAZO 3.375 GM VIAL IV ONE ×2 (09:31→19:55)
[2021-01-26] MEDS ORDERED: HEPARIN 5000 UNIT/ML 1 ML VIAL ONE ×2 (09:31→19:42)
[2021-01-26] MEDS ORDERED: NA CHLORIDE 0.9% 100 ML ONE ×2 (09:31→19:54)
[2021-01-26] MEDS ORDERED: PANTOPRAZOLE 40 MG INJ ONE ×2 (09:31→19:42)
[2021-01-26] MEDS: HEPARIN 5000 UNIT/ML 1 ML VIAL SQ SCH ×2 (09:37→19:53)
[2021-01-26] MEDS: PANTOPRAZOLE 40 MG INJ IVP SCH ×2 (09:37→19:52)
[2021-01-26] MEDS: PIPER TAZO 3.375 GM in NA CHLORIDE 0.9% 100 ML IV SCH ×2 (09:38→19:56)
[2021-01-26] MEDS: INSULIN -REGULAR HUMAN 50 UNIT/0.5 ML ML SQ SCH ×4 (09:40→20:41)
[2021-01-26] MEDS: MIDODRINE HCL 5 MG TABLET PO SCH ×3 (09:43→19:52)
[2021-01-26] MEDS ORDERED: NA CHLORIDE 0.9% 1,000 ML IV ONE (09:58)
[2021-01-26] MEDS ORDERED: NA CHLORIDE 0.9% 2,000 ML ONE (10:27)
[2021-01-26] MEDS: NA CHLORIDE 0.9% 1,000 ML IV SCH ×2 (10:29→19:51)
[2021-01-26] MEDS ORDERED: AMIODARONE HCL 150 MG in D5W 100 ML IV STA (10:34)
[2021-01-26] MEDS ORDERED: AMIODARONE HCL 900 MG in Dextrose 5%-Water 482 ML IV SCH (11:00)
--- NOTE | 2021-01-26 11:05 | RAD REPORT ---
EXAM DESCRIPTION: RAD - Chest Single View - 01/26/2021 10:51 am CLINICAL HISTORY: Pneumonia Chest pain. COMPARISON: Chest Single View dated 01/24/2021; Chest Single View dated 12/22/2020; Chest Single Vie w dated 09/27/2019; Chest Single View dated 09/01/2018 FINDINGS: Portable technique limits examination quality. Since 01/24/2021, there has been mild to moderate worsening of left lung infiltrate/pneumonia. The he art is upper limit normal in size. No displaced fractures. IMPRESSION: Mild to moderate worsening of left lung infiltrate/ pneumonia since comparative study.
[2021-01-26] MEDS ORDERED: OCTREOTIDE ACETATE 100 MCG/ML ONE ×2 (11:22→19:47)
--- NOTE | 2021-01-26 11:22 | P.PN ---
Subjective Date of Service: 01/26/21 Chief Complaint: Septic shock No change in patient's condition he is still in shock hypotensive respiratory failure chest x-ray shows significant consolidation possibly an effusion on the left side Review of Systems General: Weakness Respiratory: Shortness of Breath Physical Examination - Vital Signs Temperature: 98.9 F Blood Pressure: 90/60 Pulse: 103 Respirations: 18 Pulse Ox (%): 94 - Physical Exam General: Alert, Delirious (Patient is delirious), Other Respiratory: Diminished (Diminished air entry on the left side with some crackles) Cardiovascular: No edema, Irregular heart rate/rhythm - Studies Microbiology Data (last 24 hrs): 01/24/21 14:02 Catheterized Urine [place] Count - Final No growth. 01/24/21 14:02 Catheterized Urine - Final No growth. 01/24/21 14:05 Blood - Blood Anaerobic Blood Culture - Final Assessment & Plan - Problems (Diagnosis) (1) Septic shock Current Visit: Yes Status: Acute Plan: Patient is in septic shock hypotensive acute renal failure creatinine improving BUN elevated altered mental status cultures negative chest x-ray possible consolidation or effusion CT scan of the chest ordered without contrast patient is on dual therapy with Levaquin and Zosyn cultures so far negative patient will need MRSA coverage we will add vancomycin white count is declining he is currently on BiPAP
[2021-01-26] MEDS ORDERED: VANCOMYCIN 1.75 GM in NA CHLORIDE 0.9% 500 ML IVPB SCH (12:00)
[2021-01-26] MEDS: OCTREOTIDE ACETATE 100 MCG/ML SQ SCH ×2 (12:25→19:55)
--- NOTE | 2021-01-26 13:04 | RAD REPORT ---
EXAM DESCRIPTION: CT - Thorax Wo Con - 01/26/2021 12:51 pm CLINICAL HISTORY: Severe pneumonia respiratory failure COMPARISON: [facility]ANGIO CHEST FOR PE dated 05/03/2011; Chest Single View dated 01/26/2021; Chest Single V iew dated 01/24/2021; Chest Single View dated 12/22/2020 FINDINGS: Chest Wall: No suspicious thyroid nodules or pathologic lymphadenopathy. Lungs: Left lower lobe consolidation with air bronchograms. There is a more masslike rounded process in the left upper lobe measuring 4.2 cm. See image 22, series 201 Pleura: Enlarging moderate left pleural effusion which appears to be loculated. Small right effusion. This is probably free-flowing. Mediastinum/chata: No pathologic lymphadenopathy. Pulmonary arteries/Aorta: Limited evaluation without contrast. No aortic aneurysm. Heart: No significant pericardial effusion. Normal heart size. Upper abdomen: Right upper pole renal cyst. Distended stomach and portions of the visualized colon. Bones: No acute abnormality. All CT scans are performed using dose optimization technique as appropriate and may include automated exposure control or mA/KV adjustment according to patient size. IMPRESSION: Moderate loculated appearing left pleural effusion with underlying consolidation that co uld reflect a combination of pneumonia and atelectasis. In addition, a rounded mass like structure in the left upper lobe could represent an underlying mass. Options for further evaluation include bronc hoscopy or short-term follow-up chest CT.
--- NOTE | 2021-01-26 15:24 | P.PN ---
Subjective Date of Service: 01/26/21 Chief Complaint: Septic shock Subjective: No new changes (Still on BiPAP Still on IV fluids Weaned off IV pressors now) Review of Systems 10-point ROS is otherwise unremarkable Physical Examination - Vital Signs Temperature: 97.9 F Blood Pressure: 99/62 Pulse: 90 Respirations: 19 Pulse Ox (%): 90 - Physical Exam General: Alert, Oriented x3, Mild distress HEENT: Atraumatic, PERRLA Neck: Supple, 2+ carotid pulse no bruit, JVD not distended Respiratory: Normal air movement, Diminished, Crackles/rales Cardiovascular: No edema, Normal pulses, Normal S1 S2, Irregular heart rate/rhythm Gastrointestinal: Normal bowel sounds, Soft and benign, Non-distended Musculoskeletal: No clubbing, No swelling Neurological: Normal speech, Normal strength at 5/5 x4 extr Urinary: Hancock catheter - Studies Microbiology Data (last 24 hrs): 01/24/21 14:02 Catheterized Urine [place] Count - Final No growth. 01/24/21 14:02 Catheterized Urine - Final No growth. 01/24/21 14:05 Blood - Blood Anaerobic Blood Culture - Final Assessment And Plan - Current Problems (Diagnosis) (1) MESFIN (acute kidney injury) Current Visit: Yes Status: Acute (2) Hypoxia Current Visit: Yes Status: Acute (3) Other chronic hepatitis, not elsewhere classified Current Visit: Yes Status: Acute (4) Pneumonia Current Visit: Yes Status: Acute (5) Septic shock Current Visit: Yes Status: Acute - Plan Acute kidney injury Septic shock Bilateral pneumonia Acute rhabdomyolysis Acute respiratory failure with hypoxia Persistent hypotension Metabolic acidosisimproving Hyperkalemiaborderline improving History of hepatitis C New onset atrial fibrillation with RVR Diabetes mellitus with hyperglycemia Plan WBC trending down to 20,000, continue antibiotics Blood pressure improving, continue p.o. midodrine, weaned off IV pressors Still elevated glucose level, start long-acting insulin with Levemir, continue insulin sliding scale Improving urine output, creatinine trending down to 4.8, continue gentle IV fluids We DC bicarb drip, start normal saline Continue BiPAP and antibiotics wean O2 as tolerated New onset A. fib with RVR in the 1 teens today, start IV amiodarone loading Follow magnesium and TSH CK level trending down Continue BiPAP as tolerated Continue DVT prophylaxis as well as GI prophylaxis Still critically ill Physician Review: Patient Assessed, Agree with Above Assessment and Plan Time Spent Managing PTS Care (In Minutes): 35
[2021-01-26] MEDS ORDERED: INSULIN GLARGINE 100 UNIT/ML SQ ONE (16:21)
[2021-01-26] MEDS ORDERED: ALBUMIN HUMAN 25% 100 ML IV ONE (16:22)
[2021-01-26] MEDS: INSULIN GLARGINE 100 UNIT/ML SQ SCH (16:57)
[2021-01-26] MEDS ORDERED: ALBUTEROL 2.5 MG/3 ML NEB SOL ONE (19:30)
[2021-01-26] MEDS: ALBUTEROL 2.5 MG/3 ML NEB SOL NEB PRN (19:40)
[2021-01-26] MEDS ORDERED: NA CHLORIDE 0.9% 1,000 ML ONE (19:42)
[2021-01-27] MEDS: IPRATROPIUM BROM 0.5MG/2.5ML NEB SCH ×4 (02:40→20:10)
[2021-01-27] MEDS: ALBUTEROL 2.5 MG/3 ML NEB SOL NEB PRN (02:40)
[2021-01-27] MEDS: INSULIN GLARGINE 100 UNIT/ML SQ SCH ×2 (03:39→18:04)
[2021-01-27] MEDS: ALBUMIN HUMAN 25% 100 ML IV SCH (05:10)
[2021-01-27 05:16] VITALS: BMI 30.1
[2021-01-27 05:17] LABS: Absolute Lymphocytes (CBC) 1.2 K/uL (0.7-4.9); Basophils % 0.1 % (0-1.3); Lymphocytes % 6.6 % (15.3-44.8); RBC Red Blood Cell Count 3.29 M/uL (4.33-5.43)
[2021-01-27 05:34] LABS: Albumin 2.3 g/dL (3.4-5.0); Bilirubin Total 0.7 mg/dL (0.2-1.0); Magnesium 1.5 mg/dL (1.8-2.4); Phosphorus 3.7 mg/dL (2.5-4.9); Potassium 3.2 mmol/L (3.5-5.1); Protein, Total 6.4 g/dL (6.4-8.2)
--- NOTE | 2021-01-27 06:22 | P.PN ---
Subjective Date of Service: 01/28/21 Chief Complaint: Septic shock Subjective: Other (Reports still feeling SOB though less than yesterday.) Physical Examination - Vital Signs Temperature: 98.9 F Blood Pressure: 164/80 Pulse: 85 Respirations: 25 Pulse Ox (%): 94 - Physical Exam General: Mild distress HEENT: Atraumatic, Normocephalic Neck: Supple, JVD not distended Respiratory: Other (Symmetric chest expansion) Cardiovascular: No rubs, No murmurs Gastrointestinal: Soft and benign, No guarding Musculoskeletal: No clubbing Integumentary: No warmth Neurological: Normal speech, Normal tone, Other (+lethargy) Urinary: Other (no bladder distention) External genitalia: Deferred Rectal: Deferred - Studies Microbiology Data (last 24 hrs): 01/24/21 14:02 Catheterized Urine [place] Count - Final No growth. 01/24/21 14:02 Catheterized Urine - Final No growth. Assessment And Plan - Plan 1. Acute kidney injury 2/2 rhabdomyolysis + HRS1 + ATN/sepsis. Improving. SCr improved to 2.8 today. Baseline SCr 0.9-1.1 as of 12/22/20. CPK level decreasing, monitor. Strict I/O. Monitor renal panel. Wean off midodrine as able. Avoid net neg fluid balance. Decrease NS gtt to 75 cc/hr. 2. Septic shock 2/2 PNA. Extremities warm. Shock likely from sepsis. Improved w/ IV fluids & abx BNP elevated. Trop neg. Wean off midodrine. 3. Acute hypoxic respi failure. On bipap. Per other services. 4. Loculated L pleural effusion. Further eval/intervention/drainage ongoing. 5. AGMA. Resolved. Dc bicarb therapy. 6. Hypokalemia. Replete prn. 7. HypoMg. Replete prn. 8. DM2. Mngt per primary team. 9. HCV cirrhosis, decompensated, with ascites. Per primary team. 10. Secondary hyperPTH. iPTH 567. Monitor. Physician Review: Patient Assessed, Agree with Above Assessment and Plan
[2021-01-27] MEDS: NA CHLORIDE 0.9% 1,000 ML IV SCH ×2 (07:17→18:04)
[2021-01-27] MEDS: INSULIN -REGULAR HUMAN 50 UNIT/0.5 ML ML SQ SCH ×4 (07:30→20:40)
[2021-01-27] MEDS ORDERED: POTASSIUM 25 MEQ EFFERV TAB PO ONE (08:42)
[2021-01-27] MEDS ORDERED: LORazepam 2 MG/ML VIAL IV ONE (09:25)
[2021-01-27] MEDS: MIDODRINE HCL 5 MG TABLET PO SCH ×3 (09:58→20:00)
[2021-01-27] MEDS: PANTOPRAZOLE 40 MG INJ IVP SCH ×2 (09:58→20:00)
[2021-01-27] MEDS: PIPER TAZO 3.375 GM in NA CHLORIDE 0.9% 100 ML IV SCH ×2 (09:58→20:00)
[2021-01-27] MEDS: HEPARIN 5000 UNIT/ML 1 ML VIAL SQ SCH ×2 (10:00→19:58)
[2021-01-27] MEDS: OCTREOTIDE ACETATE 100 MCG/ML SQ SCH ×2 (10:35→20:00)
--- NOTE | 2021-01-27 11:23 | P.PN ---
Subjective Date of Service: 01/27/21 Chief Complaint: Septic shock Subjective: No new changes (Complain of increased anxiety, noted with mild tremors States he takes Xanax regularly at home) Physical Examination - Vital Signs Temperature: 98.3 F Blood Pressure: 112/87 Pulse: 115 Respirations: 31 Pulse Ox (%): 89 - Physical Exam General: Alert, Oriented x3 HEENT: Atraumatic, Normocephalic Neck: Supple, 2+ carotid pulse no bruit, JVD not distended Respiratory: Diminished, Crackles/rales Cardiovascular: Normal pulses, Irregular heart rate/rhythm Gastrointestinal: Normal bowel sounds, Soft and benign Neurological: Normal speech, Normal strength at 5/5 x4 extr, Cranial nerves 3-12 intact Urinary: Hancock catheter - Studies Microbiology Data (last 24 hrs): 01/24/21 14:02 Catheterized Urine [place] Count - Final No growth. 01/24/21 14:02 Catheterized Urine - Final No growth. Assessment And Plan - Current Problems (Diagnosis) (1) MESFIN (acute kidney injury) Current Visit: Yes Status: Acute (2) Hypoxia Current Visit: Yes Status: Acute (3) Other chronic hepatitis, not elsewhere classified Current Visit: Yes Status: Acute (4) Pneumonia Current Visit: Yes Status: Acute (5) Septic shock Current Visit: Yes Status: Acute - Plan Acute kidney injury Septic shock Bilateral pneumonia Loculated right pleural effusion with lung mass Acute rhabdomyolysis Acute respiratory failure with hypoxia Persistent hypotensionimproving Metabolic acidosisimproving Hyperkalemia improving History of hepatitis C New onset atrial fibrillation with RVR Diabetes mellitus with hyperglycemia Plan WBC trending down, continue empiric antibiotics with Vanco/cefepime Blood pressure remains controlled, c/w midodrine, off IV pressors Glucose still elevated, will adjust and increase Levemir doses, continue insuli n sliding scale -Renal function much improved, continue normal saline Given presence of loculated pleural effusion which may be due to pneumonia, possibility of transfer for IR thoracocentesis considered but unable to get to bed space Continue high flow O2 use and continue to wean as tolerated Heart rate slightly improved, present of tremors and anxiety may be causing elevated heart rate We will switch amiodarone to p.o. Given anxiety with slight withdrawal symptoms, will do Ativan now and schedule Continue DVT prophylaxis as well as GI prophylaxis Still critically ill Physician Review: Patient Assessed, Agree with Above Assessment and Plan
[2021-01-27] MEDS: ALPRAZOLAM 0.5 MG TABLET PO PRN ×2 (11:25→21:27)
[2021-01-27] MEDS: HYDROCODONE/APAP 5/325 MG TAB PO PRN ×2 (12:24→23:32)
--- NOTE | 2021-01-27 17:01 | EKG ---
Test Date: 2021-01-26 Test Time: 10:05:27 Real Estate Accountant: RNNT MEASUREMENT RESULTS: Intervals: Rate: 126 [place]: QRSD: 82 QT: 314 QTc: 454 [place]: P: [place]: QRS: -4 T: 17 INTERPRETIVE STATEMENTS: Atrial fibrillation with rapid ventricular response Septal infarct, age undetermined Abnormal ECG Electronically Signed On 01-27-21 17:00:02 SIGNALING PROJECT ENGINEER by Arnaud Espinoza
--- NOTE | 2021-01-27 17:01 | EKG ---
Test Date: 2021-01-26 Test Time: 10:06:33 Screening Representative: RNNT MEASUREMENT RESULTS: Intervals: Rate: 121 [place]: QRSD: 88 QT: 316 QTc: 448 [employer]: P: [place]: QRS: -2 T: 16 INTERPRETIVE STATEMENTS: Atrial fibrillation with rapid ventricular response Septal infarct, age undetermined Abnormal ECG Compared to ECG 01/24/2021 13:41:43 Myocardial infarct finding now present ST (T wave) deviation no longer present Electronically Signed On 01-27-21 17:00:02 DECONTAMINATION WORKER by Arnaud Espinoza
[2021-01-27] MEDS: Levofloxacin500mg IV 500 MG/100 ML BAG IV SCH (18:03)
[2021-01-28] MEDS: IPRATROPIUM BROM 0.5MG/2.5ML NEB SCH ×4 (01:45→19:35)
[2021-01-28] MEDS: INSULIN GLARGINE 100 UNIT/ML SQ SCH ×2 (04:00→16:00)
[2021-01-28 05:13] LABS: Absolute Lymphocytes (CBC) 1.1 K/uL (0.7-4.9); Basophils % 0.1 % (0-1.3); Hematocrit 35.2 % (39.6-49.0); Lymphocytes % 5.6 % (15.3-44.8); MPV 9.2 fL (7.6-11.3)
[2021-01-28 05:47] LABS: Albumin 2.1 g/dL (3.4-5.0); Bilirubin Total 0.7 mg/dL (0.2-1.0); Magnesium 1.9 mg/dL (1.8-2.4); Potassium 3.6 mmol/L (3.5-5.1); Protein, Total 6.6 g/dL (6.4-8.2)
[2021-01-28 05:49] LABS: Blood Morphology Comment NOT SEEN (NOT SEEN); Platelet Estimate INCR; White Blood Cell Scan OK (OK)
[2021-01-28] MEDS: NA CHLORIDE 0.9% 1,000 ML IV SCH (06:50)
[2021-01-28] MEDS ORDERED: NA CHLORIDE 0.9% 1,000 ML IV ONE (06:53)
[2021-01-28] MEDS: INSULIN -REGULAR HUMAN 50 UNIT/0.5 ML ML SQ SCH ×4 (07:30→21:00)
--- NOTE | 2021-01-28 07:35 | P.PN ---
Subjective Date of Service: 01/29/21 Chief Complaint: Septic shock Subjective: Other (Reports no inc SOB.) Physical Examination - Vital Signs Temperature: 97.7 F Blood Pressure: 89/59 Pulse: 105 Respirations: 28 Pulse Ox (%): 90 - Physical Exam General: Mild distress HEENT: Atraumatic, Normocephalic Neck: Supple Respiratory: Other (symmetric chest expansion) Cardiovascular: No rubs, No murmurs Gastrointestinal: Soft and benign, No guarding Musculoskeletal: No clubbing Integumentary: No warmth Neurological: Other (+lethargy) Urinary: Other (no bladder distention) External genitalia: Deferred Rectal: Deferred Assessment And Plan - Plan 1. Acute kidney injury 2/2 rhabdomyolysis + HRS1 + ATN/sepsis. Improving. SCr improved to 2.5 today. Baseline SCr 0.9-1.1 as of 12/22/20. CPK level decreasing, monitor. Strict I/O. Monitor renal panel. Wean off midodrine as able. Avoid net neg fluid balance. NS gtt d/c'ed. [place] po fluid intake at least 2L/d. 2. Septic shock 2/2 PNA. Extremities warm. Shock likely from sepsis. Improved w/ IV fluids & abx BNP elevated. Trop neg. Wean off midodrine. 3. Acute hypoxic respi failure. On bipap. Per other services. 4. Loculated L pleural effusion. Further eval/intervention/drainage ongoing. 5. AGMA. Resolved. Dc bicarb therapy. 6. Hypokalemia. Replete prn. 7. HypoMg. Replete prn. 8. DM2. Mngt per primary team. 9. HCV cirrhosis, decompensated, with ascites. Per primary team. 10. Secondary hyperPTH. iPTH 567. No need for calcitriol as renal dysfxn is more acute/subacute than chronic. Physician Review: Patient Assessed, Agree with Above Assessment and Plan
[2021-01-28] MEDS ORDERED: NA CHLORIDE 0.9% 1,000 ML IV SCH (08:00)
--- NOTE | 2021-01-28 08:34 | RAD REPORT ---
EXAM DESCRIPTION: Ian Single View01/28/2021 7:04 am CLINICAL HISTORY: Pneumonia COMPARISON: January FINDINGS: Near complete opacification left hemithorax. This has progressed since the prior exam Right lung appears clear. Heart is mildly enlarged IMPRESSION: Near complete opacification left hemithorax likely representing a combination of a very loculated/viscous pleural effusion with thick pleural rind and pneumonia. Superimposed underlying ma ss is an additional possibility
[2021-01-28] MEDS ORDERED: Magnesium Sulfate 2gm IVPB 2 G/50 ML BAG IV ONE (08:42)
--- NOTE | 2021-01-28 09:00 | P.PN ---
Subjective Date of Service: 01/28/21 Chief Complaint: Septic shock Subjective: No new changes (Still cough, complain of pain over the left chest wall, pain is worse with coughing. Still on high flow O2) Physical Examination - Vital Signs Temperature: 97.7 F Blood Pressure: 89/59 Pulse: 105 Respirations: 28 Pulse Ox (%): 90 - Physical Exam General: Alert, In no apparent distress, Oriented x3 HEENT: Atraumatic, Normocephalic, PERRLA Neck: 2+ carotid pulse no bruit, JVD not distended Respiratory: Diminished, Other (Markedly reduced air movement over the left side) Cardiovascular: Normal pulses, Normal S1 S2, Irregular heart rate/rhythm Gastrointestinal: Normal bowel sounds, Soft and benign, Non-distended, No masses, No rebound Musculoskeletal: No clubbing, No swelling Neurological: Normal speech, Normal strength at 5/5 x4 extr, Normal tone Assessment And Plan - Current Problems (Diagnosis) (1) MESFIN (acute kidney injury) Current Visit: Yes Status: Acute (2) Hypoxia Current Visit: Yes Status: Acute (3) Other chronic hepatitis, not elsewhere classified Current Visit: Yes Status: Acute (4) Pneumonia Current Visit: Yes Status: Acute (5) Septic shock Current Visit: Yes Status: Acute - Plan Acute kidney injury Septic shock Bilateral pneumonia Worsening left pleural effusion with near left upper lobe lung mass Acute rhabdomyolysis Acute respiratory failure with hypoxia Persistent hypotensionimproving Metabolic acidosisimproving Hyperkalemia improving History of hepatitis C New onset atrial fibrillation with RVR Diabetes mellitus with hyperglycemia Plan Chest x-ray and clinical history do not show worsening left pleural effusion with Complete opacity Still awaiting transfer to higher level of care for paracentesis since loculated effusion on CT with superimposed left upper lobe -Still persistent hypotension but stable, continue midodrine - will DC IV fluids since worsening pleural effusion bilaterally -Renal function improving slowly with creatinine down to 2.4, follow renal team -Improving glucose level, continue Levemir and insulin sliding scale Continue high flow oxygen and wean as tolerated but clinically worsening A. fib with RVRrate controlled now, continue amiodaroneswitch to p.o. -Presence of Xanax withdrawal, improving with as needed Ativan Continue DVT prophylaxis as well as GI prophylaxis Still critically ill Needs transfer to higher level of care, case management and nursing team working on transfer Patient clinically worsening without thoracocentesis Physician Review: Patient Assessed, Agree with Above Assessment and Plan
[2021-01-28] MEDS: PANTOPRAZOLE 40 MG INJ IVP SCH ×2 (09:11→20:18)
[2021-01-28] MEDS: PIPER TAZO 3.375 GM in NA CHLORIDE 0.9% 100 ML IV SCH ×2 (09:11→20:18)
[2021-01-28] MEDS: MIDODRINE HCL 5 MG TABLET PO SCH ×3 (09:12→19:48)
[2021-01-28] MEDS: HYDROCODONE/APAP 5/325 MG TAB PO PRN ×3 (09:12→23:30)
[2021-01-28] MEDS: OCTREOTIDE ACETATE 100 MCG/ML SQ SCH ×2 (09:13→20:18)
[2021-01-28] MEDS: HEPARIN 5000 UNIT/ML 1 ML VIAL SQ SCH ×2 (09:15→20:16)
[2021-01-28] MEDS: ALPRAZOLAM 0.5 MG TABLET PO PRN (09:21)
[2021-01-28] MEDS: VANCOMYCIN 1.75 GM in NA CHLORIDE 0.9% 500 ML IVPB SCH (12:44)
[2021-01-28] MEDS: LORazepam 2 MG/ML VIAL IV PRN (12:46)
[2021-01-28 17:22] LABS: Hepatitis C Virus RNA (PCR)log 6.67 log IU/mL
[2021-01-29] MEDS: IPRATROPIUM BROM 0.5MG/2.5ML NEB SCH ×4 (00:45→19:40)
[2021-01-29] MEDS: INSULIN GLARGINE 100 UNIT/ML SQ SCH ×2 (04:00→16:25)
[2021-01-29 05:32] LABS: Absolute Lymphocytes (CBC) 1.4 K/uL (0.7-4.9); Basophils % 0.1 % (0-1.3); Hematocrit 36.1 % (39.6-49.0); Lymphocytes % 5.1 % (15.3-44.8); MPV 8.9 fL (7.6-11.3)
[2021-01-29 05:48] LABS: Albumin 1.9 g/dL (3.4-5.0); Bilirubin Total 0.5 mg/dL (0.2-1.0); Phosphorus 4.9 mg/dL (2.5-4.9); Potassium 3.4 mmol/L (3.5-5.1); Protein, Total 6.6 g/dL (6.4-8.2)
[2021-01-29 06:24] LABS: Blood Morphology Comment NOT SEEN (NOT SEEN); Dohle Bodies PRESENT; Platelet Estimate INCR
--- NOTE | 2021-01-29 07:53 | RAD REPORT ---
EXAM DESCRIPTION: RAD - Abdomen 1 View (KUB) - 01/29/2021 7:01 am CLINICAL HISTORY: mild distension COMPARISON: Thorax Wo Con dated 01/26/2021; Chest Single View dated 01/29/2021; Chest Single View da tuyet 01/28/2021 FINDINGS: Markedly distended stomach. Diffuse colonic and small bowel distention. No acute osseous a bnormality.Opacified left lung again identified.No abnormal calcifications. IMPRESSION: Distended stomach, small bowel, and colon likely reflecting an ileus. Could consider NG tube decompression.
--- NOTE | 2021-01-29 07:55 | RAD REPORT ---
EXAM DESCRIPTION: RAD - Chest Single View - 01/29/2021 7:01 am CLINICAL HISTORY: Follow up L loculated effusion COMPARISON: Chest Single View dated 01/28/2021; Chest Single View dated 01/26/2021; Chest Single Vie w dated 01/24/2021; Chest Single View dated 12/22/2020; Thorax Wo Con dated 01/26/2021 FINDINGS: Similar near complete opacification of the left hemithorax with only mild residual aerated lung in the left upper lobe. The right lung is clear. Cardiac silhouette is largely obscured. IMPRESSION: Near complete opacification of the left hemithorax which could represent a combination o f factors including enlarging, presumably complex, left pleural effusion with underlying atelectasis, pneumonia, and/or mass.
[2021-01-29] MEDS: PANTOPRAZOLE 40 MG INJ IVP SCH ×2 (08:46→20:05)
[2021-01-29] MEDS: PIPER TAZO 3.375 GM in NA CHLORIDE 0.9% 100 ML IV SCH ×2 (08:46→20:05)
[2021-01-29] MEDS: MIDODRINE HCL 5 MG TABLET PO SCH ×3 (08:46→20:05)
[2021-01-29] MEDS: HYDROCODONE/APAP 5/325 MG TAB PO PRN ×2 (08:47→15:44)
[2021-01-29] MEDS: INSULIN -REGULAR HUMAN 50 UNIT/0.5 ML ML SQ SCH ×4 (08:49→20:04)
[2021-01-29] MEDS: HEPARIN 5000 UNIT/ML 1 ML VIAL SQ SCH ×2 (08:51→20:02)
[2021-01-29] MEDS: OCTREOTIDE ACETATE 100 MCG/ML SQ SCH ×2 (08:51→21:00)
--- NOTE | 2021-01-29 12:26 | P.PN ---
Subjective Date of Service: 01/29/21 Chief Complaint: Septic shock Subjective: Other (Patient alert, cooperative. Currently on high flow and BiPAP. Vital signs stable. Blood pressure around 95-100 systolic.) Physical Examination - Vital Signs Temperature: 97.3 F Blood Pressure: 93/57 Pulse: 103 Respirations: 20 Pulse Ox (%): 91 Assessment & Plan Discharge Plan: Transfer Plan to discharge in: Greater than 2 days Physician Review Additional Text: COVID: negative Influenza: Negative Initial CXR: COMPARISON: December 2020 FINDINGS: Moderate patchy left lung opacities. Right lung appears clear. The heart is borderline enlarged IMPRESSION: Moderate patchy left lung opacities probably pneumonia. This should be followed until it is clear to help exclude a post obstructive process/underlying mass ECHO: CATHERIZATION: NO SURGERY: NO PROSTHETIC VALVE: NO PACEMAKER: NO MEASUREMENTS (cm) DIASTOLIC (NORMALS) SYSTOLIC (NORMALS) IVSd 0.9 (0.6-1.2) LA Diam 2.5 (1.9-4.0) LVEF 82% LVIDd 4.1 (3.5-5.7) LVIDs 2.0 (2.0-3.5) %FS 50% LVPWd 1.0 (0.6-1.2) Ao Diam 2.9 (2.0-3.7) 2 DIMENSIONAL ASSESSMENT: RIGHT ATRIUM: NORMAL LEFT ATRIUM: NORMAL RIGHT VENTRICLE: NORMAL LEFT VENTRICLE: HYPERDYNAMIC TRICUSPID VALVE: MITRAL VALVE: PULMONIC VALVE: NORMAL AORTIC VALVE: NORMAL PERICARDIAL EFFUSION: NONE AORTIC ROOT: NORMAL LEFT VENTRICULAR WALL MOTION: HYPERDYNAMIC LEFT VENTRICLE. DOPPLER/COLOR FLOW: SEE BELOW. COMMENTS: HYPERDYNAMIC LEFT VENTRICLE WITH EJECTION FRACTION > 70%. MILD TRICUSPID AND MITRAL REGURGITATION. CT chest: COMPARISON: CTANGIO CHEST FOR PE dated 05/03/2011; Chest Single View dated 01/26/2021; Chest Single View dated 01/24/2021; Chest Single View dated FINDINGS: Chest Wall: No suspicious thyroid nodules or pathologic lymphadenopathy. Lungs: Left lower lobe consolidation with air bronchograms. There is a more masslike rounded process in the left upper lobe measuring 4.2 cm. See image 22, series 201 Pleura: Enlarging moderate left pleural effusion which appears to be loculated. Small right effusion. This is probably free-flowing. Mediastinum/chata: No pathologic lymphadenopathy. Pulmonary arteries/Aorta: Limited evaluation without contrast. No aortic aneurysm. Heart: No significant pericardial effusion. Normal heart size. Upper abdomen: Right upper pole renal cyst. Distended stomach and portions of the visualized colon. Bones: No acute abnormality. All CT scans are performed using dose optimization technique as appropriate and may include automated exposure control or mA/KV adjustment according to patient size. IMPRESSION: Moderate loculated appearing left pleural effusion with underlying consolidation that could reflect a combination of pneumonia and atelectasis. In addition, a rounded mass like structure in the left upper lobe could represent an underlying mass. Options for further evaluation include bronchoscopy or sh ort-term follow-up chest CT. Follow up CXR 01/29/2021: COMPARISON: Chest Single View dated 01/28/2021; Chest Single View dated 01/26/2021; Chest Single View dated 01/24/2021; Chest Single View dated 12/22/2020; Thorax Wo Con dated 01/26/2021 FINDINGS: Similar near complete opacification of the left hemithorax with only mild residual aerated lung in the left upper lobe. The right lung is clear. Cardiac silhouette is largely obscured. IMPRESSION: Near complete opacification of the left hemithorax which could represent a combination of factors including enlarging, presumably complex, left pleural effusion with underlying atelectasis, pneumonia, and/or mass. Follow up KUB 01/29/2021: COMPARISON: Thorax Wo Con dated 01/26/2021; Chest Single View dated 01/29/2021; Chest Single View dated 01/28/2021 FINDINGS: Markedly distended stomach. Diffuse colonic and small bowel distention. No acute osseous abnormality.Opacified left lung again identified.No abnormal calcifications. IMPRESSION: Distended stomach, small bowel, and colon likely reflecting an ileus. Could consider NG tube decompression. Physical exam General: Patient alert and cooperative. Vital signs stable. Blood pressure around 102/61, respiratory rate 17. Heart rate 108. Patient currently off and on high flow and BiPAP. HEENT: Atraumatic, Normocephalic, PERRLA Neck: 2+ carotid pulse no bruit, JVD not distended Respiratory: Diminished to the left side Cardiovascular: Sinus tachycardia Gastrointestinal: Soft some distention noted Musculoskeletal: No clubbing, No swelling Neurological: Normal speech, Normal strength at 5/5 x4 extr, Normal tone Impression: Acute toxic encephalopathy secondary to septic shock related to acute respiratory failure with hypoxia complicated with bilateral pneumonia with left loculated pleural effusion and 4.2 cm left upper lobe mass Paroxysmal atrial fibrillation Diabetes mellitus type 2 with hyperglycemia Acute renal failure with hyperkalemia, metabolic acidosis, and rhabdomyolysis secondary to above Acute liver failure secondary to above with history of Hep C GERD Abdominal distention likely related to underlying ascites versus ileus Plan: Patient stable. Currently on IV Zosyn, Levaquin and Vancomycin. Will discuss with Pulmonary on whether to adjust antibiotics. Pulmonary recommends to check Chest US to quantify the loculated pleural effusion as he may need to transfered to [facility] for IR guided thoracentesis or VATS procedure. If transfer cannot be done in intervention is required need to consider surgery evaluation for chest tube. Case discussed in detail with transfer center and entry level paralegal Dr. Monroe.we will call her back with results of chest ultrasound to determine if patient needs to be transferred. IV fluids discontinued the other day by nephrology. Continue to monitor closely. White count remains elevated and increasing Renal function improved. Continue sliding scale. KUB shows possible ileus but patient has been able to tolerate current diet. Patient likely with ascites with history of hepatitis C. Patient did have bowel movement today. No further A. fib noted. IV amiodarone as needed. Patient on midodrine to help with blood pressure. Patient on Protonix twice daily. Will discuss with nephrology about discontinuing octreotide. Continue to monitor closely. Case discussed with patient and sister. Code Status: Full code DVT prophylaxis: Heparin Advanced Care Planning-30 minutes: Possible transfer to [place] for VATS procedure or IR guided thoracentesis. Time Spent Managing Pts Care (In Minutes): 55
[2021-01-29] MEDS ORDERED: ALBUMIN HUMAN 25% 100 ML IV ONE (14:00)
[2021-01-29] MEDS ORDERED: KCL 20 MEQ/100 mL IVPB 20 MEQ/100 ML BAG IV SCH (14:00)
[2021-01-29 14:25] LABS: HIV AG/AB 4TH GEN Non-reactive (Non-reactive)
--- NOTE | 2021-01-29 14:27 | RAD REPORT ---
EXAM DESCRIPTION: US - Chest - 01/29/2021 1:34 pm CLINICAL HISTORY: Evaluate loculated effusion COMPARISON: Chest Single View dated 01/29/2021; Chest Single View dated 01/28/2021; Thorax Wo Con da tuyet 01/26/2021 FINDINGS: Patient had limited mobility and there was difficulty in accessing the area of concern. Small to moderate left-sided pleural effusion was identifiable. Pleural fluid was loculated in the zacarias ng base with more freely movable fluid apparent along the superior aspect of the [id number]. There does appear to be accessibility for diagnostic thoracentesis. Therapeutic thoracentesis may pro ve more problematic. Volume estimate is 500 -1000 mL.
[2021-01-29] MEDS: Levofloxacin500mg IV 500 MG/100 ML BAG IV SCH (17:41)
[2021-01-29] MEDS: ALPRAZOLAM 0.5 MG TABLET PO PRN (20:06)
[2021-01-29] MEDS ORDERED: NA CHLORIDE 0.9% 100 ML ONE (20:13)
--- NOTE | 2021-01-29 23:03 | PN ---
Date of Progress Note: 01/29/2021 Chief Complaint: Septic shock, acute kidney injury, severe, nonoliguric. Subjective: The patient remains in ICU. Renal function has improved over last several days. The patient was found to have mild hypokalemia today and received replacement with potassium supplements. Review of Systems: Cannot be obtained due to patient's condition. Objective: Lungs: Few crackles. Heart: S1, S2. Abdomen: Soft. Benign. Extremities: No edema. Impression And Plan: 1. Acute kidney injury secondary to rhabdomyolysis, hepatorenal syndrome and acute tubular necrosis, sepsis. Serum creatinine level has improved gradually. Monitor electrolytes. Patient may benefit from mild IV fluids if needed for blood pressure support. Patient although has hepatorenal syndrome and received IV albumin. Continue IV albumin for blood pressure support as needed. Patient may need to have midodrine as well. 2. Septic shock secondary to pneumonia. Continue antibiotics. 3. Hypokalemia, replacement as needed. 4. Hypomagnesemia. Monitor magnesium level and continue replacement. 5. Secondary hyperparathyroidism. Intact PTH was 567. Monitor intact PTH and phosphorus and calcium level. Reevaluate for any improvement. Renal function is overall improved. Expected that PTH is going to improve as well. EB/MODL Voice ID: [id number] Report ID: [id number] HILLARY
[2021-01-30] MEDS: HYDROCODONE/APAP 5/325 MG TAB PO PRN ×2 (00:01→07:14)
[2021-01-30] MEDS: VANCOMYCIN 1.75 GM in NA CHLORIDE 0.9% 500 ML IVPB SCH (00:03)
[2021-01-30 02:15] VITALS: TEMP 98
[2021-01-30] MEDS: IPRATROPIUM BROM 0.5MG/2.5ML NEB SCH ×2 (02:28→08:02)
[2021-01-30] MEDS: INSULIN GLARGINE 100 UNIT/ML SQ SCH (04:00)
[2021-01-30 05:19] LABS: Absolute Lymphocytes (CBC) 0.9 K/uL (0.7-4.9); Basophils % 0.4 % (0-1.3); Hematocrit 33.6 % (39.6-49.0); Lymphocytes % 3.4 % (15.3-44.8); MPV 8.9 fL (7.6-11.3); RBC Red Blood Cell Count 3.56 M/uL (4.33-5.43)
[2021-01-30 05:29] LABS: Albumin 1.9 g/dL (3.4-5.0); Bilirubin Total 0.5 mg/dL (0.2-1.0); Magnesium 1.9 mg/dL (1.8-2.4); Potassium 3.6 mmol/L (3.5-5.1); Protein, Total 6.2 g/dL (6.4-8.2)
--- NOTE | 2021-01-30 05:54 | P.PN ---
Subjective Date of Service: 01/30/21 Primary Care Provider: unknown Chief Complaint: Septic shock Subjective: Other (Overall stable. Currently on BiPAP at 65%. Patient tolerated diet yesterday. No significant nausea, vomiting. Patient with noted BM yesterday.) Physical Examination - Vital Signs Temperature: 98 F Blood Pressure: 90/62 Pulse: 101 Respirations: 26 Pulse Ox (%): 93 - Studies Microbiology Data (last 24 hrs): 01/24/21 14:05 Blood - Blood Aerobic Blood Culture - Final No growth in 5 days. 01/24/21 14:05 Blood - Blood Anaerobic Blood Culture - Final 01/24/21 13:51 Blood - Blood Aerobic Blood Culture - Final No growth in 5 days. 01/24/21 13:51 Blood - Blood Anaerobic Blood Culture - Final No growth in 5 days. Assessment & Plan Discharge Plan: Transfer Plan to discharge in: 24 Hours Physician Review Additional Text: COVID: negative Influenza: Negative Initial CXR: COMPARISON: December 2020 FINDINGS: Moderate patchy left lung opacities. Right lung appears clear. The heart is borderline enlarged IMPRESSION: Moderate patchy left lung opacities probably pneumonia. This should be followed until it is clear to help exclude a post obstructive process/underlying mass ECHO: CATHERIZATION: NO SURGERY: NO PROSTHETIC VALVE: NO PACEMAKER: NO MEASUREMENTS (cm) DIASTOLIC (NORMALS) SYSTOLIC (NORMALS) IVSd 0.9 (0.6-1.2) LA Diam 2.5 (1.9-4.0) LVEF 82% LVIDd 4.1 (3.5-5.7) LVIDs 2.0 (2.0-3.5) %FS 50% LVPWd 1.0 (0.6-1.2) Ao Diam 2.9 (2.0-3.7) 2 DIMENSIONAL ASSESSMENT: RIGHT ATRIUM: NORMAL LEFT ATRIUM: NORMAL RIGHT VENTRICLE: NORMAL LEFT VENTRICLE: HYPERDYNAMIC TRICUSPID VALVE: MITRAL VALVE: PULMONIC VALVE: NORMAL AORTIC VALVE: NORMAL PERICARDIAL EFFUSION: NONE AORTIC ROOT: NORMAL LEFT VENTRICULAR WALL MOTION: HYPERDYNAMIC LEFT VENTRICLE. DOPPLER/COLOR FLOW: SEE BELOW. COMMENTS: HYPERDYNAMIC LEFT VENTRICLE WITH EJECTION FRACTION > 70%. MILD TRICUSPID AND MITRAL REGURGITATION. CT chest: COMPARISON: CTANGIO CHEST FOR PE dated 05/03/2011; Chest Single View dated 01/26/2021; Chest Single View dated 01/24/2021; Chest Single View dated 12/22/2020 FINDINGS: Chest Wall: No suspicious thyroid nodules or pathologic lymphadenopathy. Lungs: Left lower lobe consolidation with air bronchograms. There is a more masslike rounded process in the left upper lobe measuring 4.2 cm. See image 22, series 201 Pleura: Enlarging moderate left pleural effusion which appears to be loculated. Small right effusion. This is probably free-flowing. Mediastinum/chata: No pathologic lymphadenopathy. Pulmonary arteries/Aorta: Limited evaluation without contrast. No aortic aneurysm. Heart: No significant pericardial effusion. Normal heart size. Upper abdomen: Right upper pole renal cyst. Distended stomach and portions of the visualized colon. Bones: No acute abnormality. All CT scans are performed using dose optimization technique as appropriate and may include automated exposure control or mA/KV adjustment according to patient size. IMPRESSION: Moderate loculated appearing left pleural effusion with underlying consolidation that could reflect a combination of pneumonia and atelectasis. In addition, a rounded mass like structure in the left upper lobe could represent an underlying mass. Options for further evaluation include bronchoscopy or short-term follow-up chest CT. Follow up CXR 01/29/2021: COMPARISON: Chest Single View dated 01/28/2021; Chest Single View dated 01/26/2021; Chest Single View dated 01/24/2021; Chest Single View dated ; Thorax Wo Con dated 01/26/2021 FINDINGS: Similar near complete opacification of the left hemithorax with only mild residual aerated lung in the left upper lobe. The right lung is clear. Ca rdiac silhouette is largely obscured. IMPRESSION: Near complete opacification of the left hemithorax which could represent a combination of factors including enlarging, presumably complex, left pleural effusion with underlying atelectasis, pneumonia, and/or mass. Follow up KUB 01/29/2021: COMPARISON: Thorax Wo Con dated 01/26/2021; Chest Single View dated 01/29/2021; Chest Single View dated 01/28/2021 FINDINGS: Markedly distended stomach. Diffuse colonic and small bowel distention. No acute osseous abnormality.Opacified left lung again identified.No abnormal calcifications. IMPRESSION: Distended stomach, small bowel, and colon likely reflecting an ileus. Could consider NG tube decompression. Chest US: COMPARISON: Chest Single View dated 01/29/2021; Chest Single View dated 01/28/2021; Thorax Wo Con dated 01/26/2021 FINDINGS: Patient had limited mobility and there was difficulty in accessing the area of concern. Small to moderate left-sided pleural effusion was identifiable. Pleural fluid was loculated in the lung base with more freely movable fluid apparent along the superior aspect of the [id number]. There does appear to be accessibility for diagnostic thoracentesis. Therapeutic thoracentesis may prove more problematic. Volume estimate is 500 -1000 mL. Physical exam General: Patient alert and cooperative. Vital signs stable. Patient still requiring high flow and BiPAP. On high flow he utilizes 100% FiO2. On BiPAP he is on 65% FiO2. HEENT: Atraumatic, Normocephalic, PERRLA Neck: Neck supple Respiratory: Diminished to the left side Cardiovascular: Heart rate around 104. Gastrointestinal: Soft nontender nondistended. Musculoskeletal: No clubbing, No swelling Neurological: Normal speech, Normal strength at 5/5 x4 extr, Normal tone Impression: Acute toxic encephalopathy secondary to septic shock related to acute respiratory failure with hypoxia complicated with bilateral pneumonia with left loculated pleural effusion and 4.2 cm left upper lobe mass Paroxysmal atrial fibrillation Diabetes mellitus type 2 with hyperglycemia Acute renal failure with hyperkalemia, metabolic acidosis, and rhabdomyolysis secondary to above Acute liver failure secondary to above with history of Hep C GERD Abdominal distention likely related to underlying ascites versus ileus Plan: White count remains elevated. Patient remains on IV antibiotic therapy. Renal function improved. Patient overall remained stable since yesterday. Case discussed at length with innovation analyst at [facility]. Case discussed again today. There is a bed available for transfer. Patient will be transferred for evaluation by vascular surgery. Patient will likely require VATS procedure. Patient remains on IV Zosyn, Levaquin and vancomycin. So far blood cultures negative. Case discussed with radiology and pulmonology yesterday. Case discussed with pulmonology today. Patient tolerating diet. No significant nausea or vomiting. No clinical evidence of ileus. Abdominal distention likely related to ascites with underlying history of hepatitis C. Patient on midodrine to maintain blood pressure. Patient remains on Protonix 40 mg 1 pill twice daily. Patient remains on insulin for diabetes. Patient remains on octreotide. Will discuss with nephrology and pulmonology as patient will be transferred for higher level of care. Patient stable for transfer. Code Status: Full code DVT prophylaxis: Heparin Advanced Care Planning-30 minutes: Transfer to [place] for VATS procedure. Time Spent Managing Pts Care (In Minutes): 55
[2021-01-30 06:31] LABS: Vitamin D 1,25-Dihydroxy Total 16 pg/mL (18-72); Vitamin D,1,25-OH2, D2 <8 pg/mL
[2021-01-30] MEDS: INSULIN -REGULAR HUMAN 50 UNIT/0.5 ML ML SQ SCH (07:07)
[2021-01-30] MEDS: MIDODRINE HCL 5 MG TABLET PO SCH (07:14)
[2021-01-30] MEDS: PANTOPRAZOLE 40 MG INJ IVP SCH (07:15)
[2021-01-30] MEDS: HEPARIN 5000 UNIT/ML 1 ML VIAL SQ SCH (07:15)
[2021-01-30] MEDS: PIPER TAZO 3.375 GM in NA CHLORIDE 0.9% 100 ML IV SCH (07:15)
[2021-01-30] MEDS: OCTREOTIDE ACETATE 100 MCG/ML SQ SCH (07:18)
--- NOTE | 2021-01-30 08:26 | P.DS ---
Admission Date: 01/24/21 Discharge Date: 01/30/21 Primary Care Provider: unknown Disposition: TRANSFER TO [facility] Discharge Condition: SERIOUS Reason for Admission: Septic shock Consultations: Nephrology-Dr. Santiago Pulmonary-Dr. Jimenez Cardiology-Dr. Espinoza Procedures: COVID: negative Influenza: Negative Initial CXR: COMPARISON: December 2020 FINDINGS: Moderate patchy left lung opacities. Right lung appears clear. The heart is borderline enlarged IMPRESSION: Moderate patchy left lung opacities probably pneumonia. This should be followed until it is clear to help exclude a post obstructive process/underlying mass ECHO: CATHERIZATION: NO SURGERY: NO PROSTHETIC VALVE: NO PACEMAKER: NO MEASUREMENTS (cm) DIASTOLIC (NORMALS) SYSTOLIC (NORMALS) IVSd 0.9 (0.6-1.2) LA Diam 2.5 (1.9-4.0) LVEF 82% LVIDd 4.1 (3.5-5.7) LVIDs 2.0 (2.0-3.5) %FS 50% LVPWd 1.0 (0.6-1.2) Ao Diam 2.9 (2.0-3.7) 2 DIMENSIONAL ASSESSMENT: RIGHT ATRIUM: NORMAL LEFT ATRIUM: NORMAL RIGHT VENTRICLE: NORMAL LEFT VENTRICLE: HYPERDYNAMIC TRICUSPID VALVE: MITRAL VALVE: PULMONIC VALVE: NORMAL AORTIC VALVE: NORMAL PERICARDIAL EFFUSION: NONE AORTIC ROOT: NORMAL LEFT VENTRICULAR WALL MOTION: HYPERDYNAMIC LEFT VENTRICLE. DOPPLER/COLOR FLOW: SEE BELOW. COMMENTS: HYPERDYNAMIC LEFT VENTRICLE WITH EJECTION FRACTION > 70%. MILD TRICUSPID AND MITRAL REGURGITATION. CT chest: COMPARISON: CTANGIO CHEST FOR PE dated 05/03/2011; Chest Single View dated 01/26/2021; Chest Single View dated 01/24/2021; Chest Single View dated 12/22/2020 FINDINGS: Chest Wall: No suspicious thyroid nodules or pathologic lymphadenopathy. Lungs: Left lower lobe consolidation with air bronchograms. There is a more masslike rounded process in the left upper lobe measuring 4.2 cm. See image 22, series 201 Pleura: Enlarging moderate left pleural effusion which appears to be loculated. Small right effusion. This is probably free-flowing. Mediastinum/chata: No pathologic lymphadenopathy. Pulmonary arteries/Aorta: Limited evaluation without contrast. No aortic a neurysm. Heart: No significant pericardial effusion. Normal heart size. Upper abdomen: Right upper pole renal cyst. Distended stomach and portions of the visualized colon. Bones: No acute abnormality. All CT scans are performed using dose optimization technique as appropriate and may include automated exposure control or mA/KV adjustment according to patient size. IMPRESSION: Moderate loculated appearing left pleural effusion with underlying consolidation that could reflect a combination of pneumonia and atelectasis. In addition, a rounded mass like structure in the left upper lobe could represent an underlying mass. Options for further evaluation include bronchoscopy or short-term follow-up chest CT. Follow up CXR 01/29/2021: COMPARISON: Chest Single View dated 01/28/2021; Chest Single View dated 01/26/2021; Chest Single View dated 01/24/2021; Chest Single View dated 12/22/2020; Thorax Wo Con dated 01/26/2021 FINDINGS: Similar near complete opacification of the left hemithorax with only mild residual aerated lung in the left upper lobe. The right lung is clear. Cardiac silhouette is largely obscured. IMPRESSION: Near complete opacification of the left hemithorax which could represent a combination of factors including enlarging, presumably complex, left pleural effusion with underlying atelectasis, pneumonia, and/or mass. Follow up KUB 01/29/2021: COMPARISON: Thorax Wo Con dated 01/26/2021; Chest Single View dated 01/29/2021; Chest Single View dated 01/28/2021 FINDINGS: Markedly distended stomach. Diffuse colonic and small bowel distention. No acute osseous abnormality.Opacified left lung again identified.No abnormal calcifications. IMPRESSION: Distended stomach, small bowel, and colon likely reflecting an ileus. Could consider NG tube decompression. Chest US: COMPARISON: Chest Single View dated 01/29/2021; Chest Single View dated 01/28/2021; Thorax Wo Con dated 01/26/2021 FINDINGS: Patient had limited mobility and there was difficulty in accessing the area of concern. Small to moderate left-sided pleural effusion was identifiable. Pleural fluid was loculated in the lung base with more freely movable fluid apparent along the superior aspect of the [place]. There does appear to be accessibility for diagnostic thoracentesis. Therapeutic thoracentesis may prove more problematic. Volume estimate is 500 -1000 mL. Physical exam General: Patient alert and cooperative. Vital signs stable. Patient still requiring high flow and BiPAP. On high flow he utilizes 100% FiO2. On BiPAP he is on 65% FiO2. HEENT: Atraumatic, Normocephalic, PERRLA Neck: Neck supple Respiratory: Diminished to the left side Cardiovascular: Heart rate around 104. Gastrointestinal: Soft nontender nondistended. Musculoskeletal: No clubbing, No swelling Neurological: Normal speech, Normal strength at 5/5 x4 extr, Normal tone Medical Problem List: Acute toxic encephalopathy secondary to septic shock related to acute respiratory failure with hypoxia complicated with bilateral pneumonia with left loculated pleural effusion and 4.2 cm left upper lobe mass Paroxysmal atrial fibrillation Diabetes mellitus type 2 with hyperglycemia Acute renal failure with hyperkalemia, metabolic acidosis, and rhabdomyolysis secondary to above Acute liver failure secondary to above with history of Hep C GERD Abdominal distention likely related to underlying ascites versus ileus Brief History of Present Illness: 61-year-old male presented to the emergency room with shortness of breath. Patient found to have septic shock related to pneumonia. This was comp licated with loculated pleural effusion. Patient was hypoxic and hypotensive in the emergency room. Patient started on IV fluids in vasopressors. Patient admitted for treatment. Hospital Course: Patient presented with acute toxic encephalopathy related to septic shock. Patient found to have acute respiratory failure with hypoxia complicated with bilateral pneumonia and left loculated pleural effusion with CT showing 4.2 cm left upper lobe mass. Mass was identified back in December as per family. Acute renal failure with hyperkalemia, metabolic acidosis and rhabdomyolysis was identified. Acute liver failure also noted. Patient with underlying history of diabetes, hepatitis C, and GERD. Patient was admitted to ICU. Patient received IV fluid bolus with vasopressor. Patient responded well to IV fluids and taken off vasopressor. Patient had episode of atrial fibrillation which resolved very quickly. No need for IV amiodarone was required. Patient has remained stable on high flow and BiPAP. Chest x-ray shows white out related to loculated pleural effusion. Case discussed in detail with pulmonology. Patient requires further evaluation and intervention by cardiovascular surgery. Transfer initiated to [facility] for high level of care. Patient has been accepted. Patient will be transferred to [facility] for further evaluation and treatment. Patient will likely require VATS procedure. Patient stable for transfer. Currently on BiPAP at 65% FiO2. Patient remains on IV Zosyn, Levaquin and vancomycin. White count still elevated. So far blood cultures negative. Patient will be transferred to [place]. His renal failure has improved. Neurology was consulted. Patient received IV fluids with improvement. Nephrology discontinued IV fluids yesterday. Creatinine now 1.6 and GFR for 43. Nephrology has discontinued IV fluids. Creatinine 1.6. GFR 43. Liver failure improved. Patient with history of hepatitis C. Patient with diabetes. Overall stable. Currently on insulin therapy. Continue to monitor and adjust. Blood pressures have been stable on midodrine. This can be weaned off. Patient has some abdominal distention but soft. Patient tolerating diet. Patient passing gas and stool. No evidence of ileus at this time. Continue to monitor. Consider evaluation for ascites. Vital Signs/Physical Exam: Temp Pulse Resp BP Pulse Ox 98 F 101 H 26 H 90/62 93 01/30/21 08:23 01/30/21 08:23 01/30/21 08:23 01/30/21 08:23 01/30/21 08:23 General: Alert, Oriented x3, Cooperative, Other (Currently on BiPAP at 65%) HEENT: Atraumatic Neck: Supple Respiratory: Other (Decreased to the left side currently on BiPAP.) Cardiovascular: Regular rate/rhythm Gastrointestinal: Normal bowel sounds, Soft and benign, Non-distended, Ascites (Suspect ascites) Musculoskeletal: No erythema, No tenderness, No warmth Integumentary: No tenderness/swelling, No erythema, No warmth, No cyanosis Neurological: Normal speech, Normal strength at 5/5 x4 extr, Normal tone, Normal affect Laboratory Data at Discharge: WBC 26.10 K/uL (4.3-10.9) H* 01/30/21 05:00 Hgb 10.8 g/dL (13.6-17.9) L 01/30/21 05:00 Hct 33.6 % (39.6-49.0) L 01/30/21 05:00 Plt Count 445 K/uL (152-406) H 01/30/21 05:00 PT 12.8 SECONDS (9.5-12.5) H 01/25/21 02:50 INR 1.11 01/25/21 02:50 APTT Cancelled 01/25/21 Unknown Sodium 140 mmol/L (136-145) 01/30/21 05:00 Potassium 3.6 mmol/L (3.5-5.1) 01/30/21 05:00 BUN 83 mg/dL (7-18) H 01/30/21 05:00 Creatinine 1.63 mg/dL (0.55-1.3) H 01/30/21 05:00 Glucose 157 mg/dL (74-106) H 01/30/21 05:00 Uric Acid 14.5 mg/dL (3.5-7.2) H 01/24/21 13:51 Phosphorus 4.9 mg/dL (2.5-4.9) 01/29/21 05:25 Magnesium 1.9 mg/dL (1.8-2.4) 01/30/21 05:00 Total Bilirubin 0.5 mg/dL (0.2-1.0) 01/30/21 05:00 AST 40 U/L (15-37) H 01/30/21 05:00 ALT 46 U/L (12-78) 01/30/21 05:00 Alkaline Phosphatase 75 U/L (45-117) 01/30/21 05:00 Amylase 65 U/L (25-115) 01/25/21 02:50 Lipase 213 U/L (73-393) 01/25/21 02:50 Home Medications: Insulin 70/30 NPH/Reg Human [Novolin 70/30*] 10 units SQ DAILY AT SUPPER 10/28/17 Insulin 70/30 NPH/Reg Human [Novolin 70/30*] 20 units SQ BREAKFAST 10/28/17 lisinopriL [Lisinopril] 20 mg PO DAILY 30 Days #30 tablet 10/29/17 ALPRAZolam [Xanax] 0.5 mg PO BID PRN 01/25/21 Metoprolol Tartrate [Lopressor] 50 mg PO DAILY 01/25/21 Potassium Oral Tab [Klor-Con 10 mEq Tab] 20 meq PO DAILY 01/25/21 hydroCHLOROthiazide [Hydrochlorothiazide*] 25 mg PO DAILY 01/25/21 Physician Discharge Instructions: Patient to be transferred to [place] for higher level of care. Case discussed in detail with annual giving director. Diet: Mechanical Activity: Bedrest Followup: NONE,NONE [Primary Care Provider] - Time spent managing pt's care (in minutes): 55
--- NOTE | 2021-01-30 08:26 | RAD REPORT ---
EXAM DESCRIPTION: RADChest Single View01/30/2021 5:43 am CLINICAL HISTORY: Pleural effusion COMPARISON: January 29, 2021 FINDINGS: The opacification of the left hemithorax without significant change. This represents comb ination of loculated small to moderate pleural effusion, atelectasis and infiltrate/mass. Minimal right basilar lung opacities
[2021-01-30] MEDS ORDERED: PIPER TAZO 3.375 GM in NA CHLORIDE 0.9% 100 ML IV SCH (09:00)
[2021-01-30] MEDS: ALPRAZOLAM 0.5 MG TABLET PO PRN (09:10)
[2021-01-30] MEDS: LORazepam 2 MG/ML VIAL IV PRN (09:30)
[2021-01-30 10:36] VITALS: BP 117/78
--- NOTE | 2021-01-30 11:36 | CON ---
Date of Consultation: 01/26/2021 Reason For Consultation: Atrial fibrillation. History Of Present Illness: Mr. Espinal is a 61. Very complicated past medical history. He has a h istory of hypertension, anxiety, diabetes. Came in with creatinine of 4.88, hypotensive. He was ini tially placed on Levophed. After that, he went into atrial fibrillation. He was in renal failure wi th a potassium of 5.7, liver failure with elevated LFTs. He was given IV bolus of amiodarone. By th e time I saw him, he has converted to sinus rhythm before the drip was started. He is now in sinus r hythm and his vital signs are stable and he is afebrile. He came in initially with hypotension and s epsis from pneumonia. Past Medical History: As stated above. Allergies: NONE. Review of Systems: Negative. Social History: Negative. Family History: Negative. Physical Examination: Vital Signs: When I saw him, blood pressure is 110/60. Mental status was poor. He was responsive t o name. He was in sinus rhythm. HEENT: Negative. Neck: Supple with no bruit. Chest: Revealed bilateral rales. Cardiac: Normal. Abdomen: Benign. Extremities: Revealed no clubbing, cyanosis, or edema. Diagnostic Data: His glucose was 249. Creatinine had come down to 2.75. His white count was 20,000 , hemoglobin is 10.1, and potassium was 3.2. His AST was 139, ALT was 95. Impression And Plan: 1.Pneumonia, sepsis, hypotension, probably causing the atrial fibrillation, now in sinus rhythm afte r IV amiodarone bolus. I would not start the drip. I would keep him on his present regimen. I woul d hold his metoprolol for now from home. If his atrial fibrillation comes back, we will put him back on IV amiodarone drip. He should have a 2D echocardiogram done. His other problems including his r enal failure have been followed by Dr. Santiago. At home, he has a history of diabetes, hypertension , anxiety. These are probably stable at this point. Continue antibiotics. Continue hydration. Con tinue observing the potassium and creatinine. I will be available for questions if the need arises. ANNIE/PHONG Voice ID: [id number] Report ID: [id number]
[2021-01-30 14:23] VITALS: O2SAT 93
[2021-01-30 20:05] LABS: Albumin, (SPE) 2.4 g/dL (3.8-4.8); Alpha-1-Globulins 0.8 g/dL (0.2-0.3); Alpha-2-Globulins 1.7 g/dL (0.5-0.9); Gamma Globulins 1.2 g/dL (0.8-1.7); INTERPRETATION REPORT
[2021-02-01 18:23] LABS: HBsAG Nonreactive (Nonreactive)
== END 2021-01-30 10:25 | disposition short-term general hospital (02) | DRG 871 ==
LOC: ER 13:30 → ERHOLD 17:58 → 3RD-ICU 01-26 23:20
PROVIDERS: ADMIT Hospitalist; ATTEND Hospitalist
PROC: 5A09457 Assistance with Respiratory Ventilation, 24-96 Consecutive Hours, Continuous Positive Airway Pressure (ICD-10-PCS; principal; 2021-01-24)
DX: A41.9 Sepsis, unspecified organism (principal); E11.10 Type 2 diabetes mellitus with ketoacidosis without coma; J18.9 Pneumonia, unspecified organism; R65.21 Severe sepsis with septic shock; G93.41 Metabolic encephalopathy; J96.01 Acute respiratory failure with hypoxia; K72.00 Acute and subacute hepatic failure without coma; N17.0 Acute kidney failure with tubular necrosis; E87.2 Acidosis; M62.82 Rhabdomyolysis; R18.8 Other ascites; J90 Pleural effusion, not elsewhere classified; N25.81 Secondary hyperparathyroidism of renal origin; R91.8 Other nonspecific abnormal finding of lung field; E87.5 Hyperkalemia; E11.40 Type 2 diabetes mellitus with diabetic neuropathy, unspecified; I48.0 Paroxysmal atrial fibrillation; K21.9 Gastro-esophageal reflux disease without esophagitis; B19.20 Unspecified viral hepatitis C without hepatic coma; I95.9 Hypotension, unspecified; F41.9 Anxiety disorder, unspecified; Z20.822 Contact with and (suspected) exposure to COVID-19
CPT/HCPCS: 0240U; 36415; 51702; 71045; 71250; 74018; 76604; 76770; 80048; 80053; 80069; 80076; 80202; 81003; 81015; 82140; 82150; 82306; 82533; 82550; 82570; 82607; 82652; 82728; 82746; 82805; 82947; 83520; 83540; 83605; 83690; 83735; 83880; 83970; 84100; 84145; 84156; 84165; 84300; 84443; 84466; 84484; 84550; 85025; 85044; 85610; 85730; 86021; 86038; 86160; 86225; 86317; 86430; 86704; 86706; 87040; 87086; 87088; 87340; 87389; 87522; 92610; 93005; 93306; 94002; 94003; 94660; 96361; 96365; 96375; 99285; C9113; J0282; J1644; J1940; J2354; J2543; J3370; J3475; J3480; J7030; J7040; J7050; J7060; P9047

== ENCOUNTER 2022-01-15 06:40 | Emergency (ER) | payer SELFPAY ==
--- OUTSIDE RECORDS SUMMARY | 2022-01-15 06:52 | XMS REPORT | Continuity of Care Document ---
:1960 Author Organization [facility] t Address [address] [place] [address] Care Team Providers Name Role Phone NILA MONROE Attending Clinician Unavailable MICHELLE CHEN Attending Clinician Unavailable Nila Monroe MD Attending Clinician Sander oNlan MD Attending Clinician Mary JAMA, Brandon Dueñas Attending Clinician Dale JAMA, Stephane Krishna Attending Clinician Salina Roldan MD Attending Clinician Ana Pelayo MD Attending Clinician [phone] Michelle Chen MD Attending Clinician [phone] Virtual, Surgeon Attending Clinician Unavailable Shiraz JAMA, Johnna Rawls Attending Clinician [phone] Paolo JAMA, Juancarlos Stone Attending Clinician [phone] Jorge Mays MD Attending Clinician Oneil Zamorano MD Attending Clinician Ignacio Muhammad Attending Clinician Carlton Chanel Attending Clinician Unavailable NILA MONROE Admitting Clinician Unavailable Problems Condition Condition Condition Status Onset Resolution Last Treating Co mments Source Name Details Category Date Date Treatment Clinician Date Candidemia Candidemia Disease Active 2020-[address] [facility] Hypoxemia Hypoxemia Disease Active 2020-[address] [facility] requiring requiring 04-02 [facility] supplement supplement 00:00: Me dical al oxygen al oxygen 00 Cent er Empyema Empyema Disease Active [facility] s/p FB, L s/p FB, L [facility] s VATS VATS Medical pleurectom pleurectom Ce nter y/decortic y/decortic ation ation 02/01/2021 02/01/2021 Allergies, Adverse Reactions, Alerts Allergy Allergy Status Severity Reaction(s) Onset Inactive Treating Comm ents Source Name Type Date Date Clinician NO KNOWN Allergy Active [facility] St ALLERGIE [facility] Social History Social Habit Start Date Stop Date Quantity Comments Source History SDOH [facility] Alcohol Frequency Medical Center History SDOH [facility] Alcohol Std Drinks Medica Center History SDIA [facility] Alcohol Binge Medical [facility] ter Alcohol intake 2021-02-07 2021-02-07 Ex-drinker [facility]00:00 (finding) [facility] Center Tobacco use and 2021-01-30 2021-01-[address] [facility] exposure 00:00:00 00:00:00 [facility] Center History SDOH 2021-01-30 2021-01-[address] [facility] Alcohol Comment 00:00:00 00:00:00 since last year [facility] Sex Assigned At [birth year] [facility] [address] Terrie kes 00:00:00 00:00:00 Medical Center Smoking Status Start Date Stop Date Source Never smoker [facility] St kes [facility] ica Center Medications Ordered Filled Start Stop Current Ordering Indication Dosage Frequency Signature Comments Components Source Medication Medication Date Date Medication? Clinician (SIG) Name Name insulin 2022- No Inject [address] [facility] [facility] 70/30, 1-15 01-15 Units [facility] insulin 00:00: 23:59 subcutaneo Med ical NPH-insulin 00 :00 usly daily Ce nter regular, with (HumuLIN breakfast 70/30) 100 AND 10 unit/mL Units (70-30) daily with injection dinner. QUEtiapine No 25mg Take [address] [facility] [facility] (SEROquel) 02-24-14 tablet (25 Terrie kes 25 MG 00:00: 23:59 mg total) Medica l tablet 00 :00 by mouth Center every night as needed for up to 30 days. amoxicillin 2021- No 1{tbl} Q.5D Take [address] -clavulanat 02-2407 tablet by Terrie kes e 00:00: 23:59 mouth 2 Medical (AUGMENTIN) 00 :00 (two) Center 875-125 mg times per tablet daily for 23 days. insulin 2021- No Inject [address] [facility] [facility] 70/30, 02-24-15 Units [facility] insulin 00:00: 00:00 subcutaneo Med ical NPH-insulin 00 :00 usly daily Ce nter regular, with (HumuLIN breakfast 70/30) 100 AND 10 unit/mL Units (70-30) daily with injection dinner. insulin 2021- No Inject [address] [facility] 70/30, 02-24-15 Units [facility] insulin 00:00: 00:00 subcutaneo Med ical NPH-insulin 00 :00 usly daily Ce nter regular, with (HumuLIN breakfast 70/30) 100 AND 10 unit/mL Units (70-30) daily with injection dinner. potassium 20meq QD Take [address] chloride SA 02-14 tablet (20 L ukes (K-DUR,KLOR 00:00: 23:59 mEq total) Medical -CON-M) 20 00 :00 by mouth Cente r MEQ tablet daily. polyethylen 17g QD Take [address] e glycol 02-14 by mouth [facility] (GLYCOLAX) 00:00: 23:59 daily for M edical 17 gram 00 :00 3 days. Center packet folic acid 1mg QD Inject 0.[address] 5 mg/mL 02-14 mLs (1 mg [facility] injection 00:00: 00:00 total) Medic al 00 :00 intravenou Center sly daily. furosemide No 20mg QD Take [address] [facility] (LASIX) 20 02-13 tablet (20 Terrie kes MG tablet 00:00: 23:59 mg total) Me dical 00 :00 by mouth Center daily. folic acid No 1mg QD Take [address] (FOLVITE) 1 02-13 tablet (1 Terrie kes MG tablet 00:00: 23:59 mg total) Me dical 00 :00 by mouth Center daily. amoxicillin No 1{tbl} Q.5D Take [address] -clavulanat 02-13 tablet by Terrie pond e 00:00: 00:00 mouth 2 Medical (AUGMENTIN) 00 :00 (two) Center 875-125 mg times per tablet daily for 13 days. metFORMIN No 500mg Take [address] [facility] [facility] (GLUCOPHAGE 02-13 tablet [facility] ) 500 MG 00:00: 00:00 (500 mg Medic al tablet 00 :00 total) by Center mouth 2 (two) times daily with breakfast and dinner. benzonatate No 100mg Take [address] (TESSALON) 02-13 capsule [facility] 100 MG 00:00: 23:59 (100 mg Medical capsule 00 :00 total) by Center mouth 3 (three) times daily as needed for Cough for up to 7 days. Vital Signs Vital Name Observation Time Observation Value Comments Source WEIGHT 2021-02-07 05:00:00 98.7 kg WEIGHT 2021-02-06 07:00:00 99.2 kg WEIGHT 2021-02-03 06:00:00 99.2 kg WEIGHT 2021-02-01 07:00:00 95.6 kg WEIGHT 2021-01-31 06:34:00 97.3 kg HEIGHT 2021-01-30 12:00:00 177.8 cm WEIGHT 2021-01-30 12:00:00 99.2 kg WEIGHT 2021-02-07 05:00:00 98.7 kg WEIGHT 2021-02-06 07:00:00 99.2 kg WEIGHT 2021-02-03 06:00:00 99.2 kg WEIGHT 2021-02-01 07:00:00 95.6 kg WEIGHT 2021-01-31 06:34:00 97.3 kg HEIGHT 2021-01-30 12:00:00 177.8 cm WEIGHT 2021-01-30 12:00:00 99.2 kg WEIGHT 2021-02-07 05:00:00 98.7 kg WEIGHT 2021-02-06 07:00:00 99.2 kg WEIGHT 2021-02-03 06:00:00 99.2 kg WEIGHT 2021-02-01 07:00:00 95.6 kg WEIGHT 2021-01-31 06:34:00 97.3 kg HEIGHT 2021-01-30 12:00:00 177.8 cm WEIGHT 2021-01-30 12:00:00 99.2 kg Systolic blood 2021-02-24 07:00:00 123 mm[Hg] [facility] Diastolic blood 2021-02-24 07:00:00 80 mm[Hg] [facility] Heart rate 2021-02-24 07:00:00 86 /min [facility] Body temperature 2021-02-24 07:00:00 37.39 Alexsandra [facility] Respiratory rate 2021-02-24 07:00:00 18 /min [facility] Oxygen saturation in 2021-02-24 07:00:00 97 /min [facility] Arterial blood by Medical Ce nter Pulse oximetry Body weight 2021-02-07 05:00:00 98.7 kg [facility] BMI 2021-02-07 05:00:00 31.22 kg/m2 [facility] Body height 2021-01-30 12:00:00 177.8 cm [facility] Procedures Procedure Date / Time Performing Clinician Source Performed POCT-GLUCOSE METER 2021-02-24 07:51:[address] [facility] MAGNESIUM 2021-02-24 03:47:00 [facility] Aida [facility] BASIC METABOLIC PANEL 2021-02-24 03:47:00 Ana Pelayo Aida [facility] POCT-GLUCOSE METER 2021-02-23 20:45:[address] [facility] POCT-GLUCOSE METER 2021-02-23 17:13:00 Michelle Chen [facility] POCT-GLUCOSE METER 2021-02-23 12:54:00 Michelle Chen [facility] POCT-GLUCOSE METER 2021-02-23 08:06:[address] [facility] SARS-COV2/RT-PCR ([facility] & 2021-02-23 06:56:00 Melchor Sosa [facility] REF [facility] POCT-GLUCOSE METER 2021-02-22 21:30:[address] [facility] POCT-GLUCOSE METER 2021-02-22 17:29:00 Michelle Chen [facility] POCT-GLUCOSE METER 2021-02-22 11:46:[address] [facility] POCT-GLUCOSE METER 2021-02-22 07:40:[address] [facility] POCT-GLUCOSE METER 2021-02-21 19:47:[address] [facility] POCT-GLUCOSE METER 2021-02-21 16:50:[address] [facility] POCT-GLUCOSE METER 2021-02-21 12:05:[address] [facility] POCT-GLUCOSE METER 2021-02-21 08:17:[address] [facility] MAGNESIUM 2021-02-21 05:23:00 [facility] hospitalAna [facility] BASIC METABOLIC PANEL 2021-02-21 05:23:00 Ana Pelayo [facility] POCT-GLUCOSE METER 2021-02-20 19:56:00 Ana Pelayo [facility] POCT-GLUCOSE METER 2021-02-20 17:02:00 TreverAna rosales [facility] POCT-GLUCOSE METER 2021-02-20 12:22:00 TreverconnieAna MAIKEL I [facility] POCT-GLUCOSE METER 2021-02-20 07:42:00 TreverconnieAna [facility] POCT-GLUCOSE METER 2021-02-19 20:35:00 Ana Pelayo [facility] POCT-GLUCOSE METER 2021-02-19 17:50:00 Treverconnie Ana Nugentee [facility] POCT-GLUCOSE METER 2021-02-19 12:02:00 Ana Pelayo I [facility] POCT-GLUCOSE METER 2021-02-19 07:49:00 Ana Pelayo I [facility] POCT-GLUCOSE METER 2021-02-18 20:21:00 Ana Pelayo I [facility] POCT-GLUCOSE METER 2021-02-18 17:43:00 Ana Pelayoee I [facility] POCT-GLUCOSE METER 2021-02-18 12:36:00 Ana Pelayo I [facility] POCT-GLUCOSE METER 2021-02-18 07:45:00 Ana Pelayo MAIKEL I [facility] MAGNESIUM 2021-02-18 03:09:00 Ana Pelayo [facility] BASIC METABOLIC PANEL 2021-02-18 03:09:00 Ana Pelayo [facility] POCT-GLUCOSE METER 2021-02-17 19:54:00 Ana Pelayo I [facility] POCT-GLUCOSE METER 2021-02-17 17:06:00 Ana Pelayo I [facility] POCT-GLUCOSE METER 2021-02-17 11:25:00 Ana Pelayo [facility] POCT-GLUCOSE METER 2021-02-17 07:15:00 Ana Pelayo I [facility] POCT-GLUCOSE METER 2021-02-16 21:43:00 Ana Pelayo [facility] POCT-GLUCOSE METER 2021-02-16 17:13:00 Ana Pelayo [facility] POCT-GLUCOSE METER 2021-02-16 11:54:00 Ana Pelayo [facility] POCT-GLUCOSE METER 2021-02-16 07:49:00 Ana Pelayo [facility] MAGNESIUM 2021-02-16 05:08:00 [facility] 2021-02-16 05:08:00 Jamar [facility] SARS-COV2/RT-PCR ([facility] & 2021-02-15 23:15:00 [facility]SE METER 2021-02-15 20:56:00 Ana Pelayo [facility] POCT-GLUCOSE METER 2021-02-15 17:07:00 Ana Pelayo I [facility] POCT-GLUCOSE METER 2021-02-15 12:10:00 Ana Pelayo [facility] POCT-GLUCOSE METER 2021-02-15 07:24:00 Ana Pelayo I [facility] MAGNESIUM 2021-02-15 03:23:00 [facility]OLIC PANEL 2021-02-15 03:23:00 Salina Roldan [facility] POCT-GLUCOSE METER 2021-02-14 20:34:00 Ana Pelayo [facility] POCT-GLUCOSE METER 2021-02-14 17:09:00 Ana Pelayo I [facility] POCT-GLUCOSE METER 2021-02-14 11:24:00 Ana Pelayo I [facility] POCT-GLUCOSE METER 2021-02-14 07:40:00 Salina Roldan [facility] MAGNESIUM 2021-02-14 03:47:00 Ian [facility] BASIC METABOLIC PANEL 2021-02-14 03:47:00 Jamar [facility] POCT-GLUCOSE METER 2021-02-13 [facility] 2021-02-13 18:58:00 Jamar [facility] POCT-GLUCOSE METER 2021-02-13 12:33:00 Jamar [facility] POCT-GLUCOSE METER 2021-02-13 07:43:00 Jamar [facility] MAGNESIUM 2021-02-13 03:35:00 Ian [facility] B-TYPE NATRIURETIC FACTOR 2021-02-13 03:35:00 Jamar [facility] (BNP) [facility] POCT-GLUCOSE METER 2021-02-12 23:30:00 Jamar [facility] POCT-GLUCOSE METER 2021-02-12 17:23[facility] 2021-02-12 16:34:00 Ian [facility] POCT-GLUCOSE METER 2021-02-12 12:07:00 Jamar [facility] POCT-GLUCOSE METER 2021-02-12 07:38:00 Jamar [facility] BASIC METABOLIC PANEL 2021-02-12 03:23:00 Ian [facility] MAGNESIUM 2021-02-12 03:23:00 Ian [facility] POCT-GLUCOSE METER 2021-02-11 20:37:00 Jamar [facility] POCT-GLUCOSE METER 2021-02-11 17:22[facility] 2021-02-11 12:33:[facility] POCT-[facility]UCOSE METER 2021-02-11 07:51:00 Jamar [facility] MAGNESIUM 2021-02-11 07:15:00 Ian [facility] CBC W/PLT COUNT & AUTO 2021-02-11 07:15:00 Jamar [facility] CBC W/PLT COUNT & AUTO 2021-02-11 07:15:00 Jamar [facility] POCT-GLUCOSE METER 2021-02-10 20:17:[facility] PANEL 2021-02-10 17:37:00 Ian [facility] POCT-GLUCOSE METER 2021-02-10 16:51:00 Jamar [facility] XR CHEST 1 VIEW PORTABLE 2021-02-10 14:47:[address] [facility] POCT-GLUCOSE METER 2021-02-10 11:56:00 Jamar [facility] COMPREHENSIVE METABOLIC 2021-02-10 08:28:00 Ian [facility] MAGNESIUM 2021-02-10 08:28:00 Ian [facility] POCT-GLUCOSE METER 2021-02-10 07:22:00 Jamar [facility] XR CHEST 1 VIEW PORTABLE 2021-02-10 06:55:00 Paige Talavera CH, I [facility] POCT-GLUCOSE METER 2021-02-10 02:04:00 Jamar [facility] POCT-GLUCOSE METER 2021-02-10 01:41:[facility]SE [facility]ER 2021-02-09 20:32:[facility] MET[facility]OLIC PANEL 2021-02-09 17:58:00 Ian [facility] POCT-GLUCOSE METER 2021-02-09 17:11:[facility] POCT-GLUCOSE METER 2021-02-09 12:31:[address] [facility] [address] CHEST WITHOUT IV 2021-02-09 11:20:00 Ian [facility] XR CHEST 1 VIEW PORTABLE 2021-02-09 08:02:00 Ian [facility] / BEDSIDE [facility] POCT-GLUCOSE METER 2021-02-09 08:00:00 Jamar [facility] COMPREHENSIVE METABOLIC 2021-02-09 06:23:00 Ian [facility] MAGNESIUM 2021-02-09 06:[facility] 2021-02-09 06:23:00 Jamar [facility] SARS-COV2/RT-PCR ([facility] & 2021-02-09 06:23:00 janene [facility] REF LABS) [facility] POCT-GLUCOSE METER 2021-02-08 20:33:00 Jamar [facility] POCT-GLUCOSE METER 2021-02-08 18:07:00 [facility] 2021-02-08 17:11:00 [facility] 2021-02-08 16:57:00 Ian [facility] POCT-GLUCOSE METER 2021-02-08 12:10:[facility] PO[facility]UCOSE METER 2021-02-08 07:20:00 Stephane Hunter [facility] COMPREHENSIVE METABOLIC 2021-02-08 04:23:00 Ian [facility] MAGNESIUM 2021-02-08 04:23:00 [facility] POCT-GLUCOSE METER 2021-02-07 21:38:00 Stephane Hunter [facility] POCT-GLUCOSE METER 2021-02-07 17:05:00 Stephane Hunter [facility] BLOOD GAS, VENOUS 2021-02-07 15:39:00 Jorge Kumar [facility] BASIC METABOLIC PANEL 2021-02-07 15:39:00 Ian [facility] CBC (HEMOGRAM ONLY) 2021-02-07 15:39:00 [facility]OV2/[facility] ([facility] & 2021-02-07 15:39:[address] [facility] REF LABS) [facility] POCT-GLUCOSE METER 2021-02-07 11:30:00 [facility] PO[facility]COSE METER 2021-02-07 05:08:00 [facility] CBC W/PLT COUNT & AUTO 2021-02-07 03:51:00 GuHowie [facility] COMPREHENSIVE METABOLIC 2021-02-07 03:51:00 [facility] MAGNESIUM 2021-02-07 03:51:00 Ian [facility] PHOSPHORUS 2021-02-07 03:51:00 GuCodi reeseeel [facility] CALCIUM, IONIZED 2021-02-07 03:51:00 [facility] BLOOD [facility], VENOUS 2021-02-07 03:51:00 José [facility] CBC W/PLT COUNT & AUTO 2021-02-07 03:51:00 [facility] (CELL[facility]ISION MANUAL DIFF) 2021-02-07 03:51:00 Arnav [facility] PROTHROMBIN TIME/INR 2021-02-07 03:50:00 Codi Joséeemary [facility] 1 VIEW PORTABLE 2021-02-07 02:56:00 Ian [facility] / BEDSIDE Medical [place] POCT-GLUCOSE METER 2021-02-06 23:22:00 Devarajan, [facility] CBC (HEMOGRAM ONLY) 2021-02-06 22:29:00 [facility] 2021-02-06 18:03:00 [facility] BLOOD [facility], VENOUS 2021-02-06 18:03:00 [facility]OL[facility] PANEL 2021-02-06 18:03:00 Ian [facility] POCT-GLUCOSE METER 2021-02-06 15:43:00 Mary [facility] POCT-GLUCOSE METER 2021-02-06 11:38:00 Mary [facility] POCT-GLUCOSE METER 2021-02-06 07:46:00 Mary [facility] CBC W/PLT COUNT & AUTO 2021-02-06 04:17:00 Arnav [facility] COMPREHENSIVE METABOLIC 2021-02-06 04:17:00 Ian [facility] MAGNESIUM 2021-02-06 04:17:00 Ian [facility] PHOSPHORUS 2021-02-06 04:17:00 Arnav [facility] PROTHROMBIN TIME/INR 2021-02-06 04:17:00 Arnav [facility] CALCIUM, IONIZED 2021-02-06 04:17:00 Arnav [facility] BLOOD GAS, VENOUS 2021-02-06 04:17:00 José [facility] CBC W/PLT COUNT & AUTO 2021-02-06 04:17:00 Arnav [facility] XR CHEST 1 VIEW PORTABLE 2021-02-06 02:11:00 Serenio [facility] / BEDSIDE [facility] XR ABDOMEN/KUB 1 VIEW 2021-02-05 21:36:00 Serenio [facility] PORTABLE [facility] CBC (HEMOGRAM ONLY) 2021-02-05 21:07:[address] [facility] CHEST 2021-02-05 18:46:00 Yaquelin Stephenson [facility] TUBE INSERTION [facility] POCT-GLUCOSE METER 2021-02-05 17:07:00 Mary [facility] BLOOD GAS, VENOUS 2021-02-05 16:47:00 [facility] BASIC METABOLIC PANEL 2021-02-05 16:47:00 Ian [facility] POCT-GLUCOSE METER 2021-02-05 15:28:00 Mary [facility] XR CHEST 1 VIEW PORTABLE 2021-02-05 14:31:00 [facility] / BEDSIDE [facility] CBC (HEMOGRAM ONLY) 2021-02-05 13:36:00 [facility] POCT-GLUCOSE METER 2021-02-05 11:02:00 Mary [facility] POCT-GLUCOSE METER 2021-02-05 09:28:00 Mary [facility] SARS-COV2/RT-PCR ([facility] & 2021-02-05 04:07:00 Ian [facility] REF LABS) [facility] POCT-GLUCOSE METER 2021-02-05 04:05:00 Sander Nolan [facility] CBC W/PLT COUNT & AUTO 2021-02-05 03:53:00 Howie [facility] COMPREHENSIVE METABOLIC 2021-02-05 03:53:00 Melchor Sosa [facility] MAGNESIUM 2021-02-05 03:53:00 [facility]US 2021-02-05 03:53:00 Howie José [facility] PROTHROMBIN TIME/INR 2021-02-05 03:53:00 Gul, [facility] CALCI[facility], ION[facility]ED 2021-02-05 03:53:00 Gumary ann [facility] BLOOD GAS, VENOUS 2021-02-05 03:53:00 [facility] 2021-02-05 03:53:00 Pranav Cortez [facility] CBC W/PLT COUNT & AUTO 2021-02-05 03:53:00 Arnav [facility] POCT-GLUCOSE METER 2021-02-05 00:31:00 [facility] LEUKO-REDUCED RBC 2021-02-04 23:54:00 Pranav Cortez [facility] CBC (HEMOGRAM ONLY) 2021-02-04 19:40:00 [facility] BLOOD GAS, VENOUS 2021-02-04 16:13:00 [facility] BASIC METABOLIC PANEL 2021-02-04 16:13:00 [facility] POCT-GLUCOSE METER 2021-02-04 13:55:00 [facility] (HEMO[facility] ONLY) 2021-02-04 13:53:[address] [facility] [address] LIMITED/LOCALIZED 2021-02-04 12:50:00 [facility] POCT-GLUCOSE METER 2021-02-04 06:21:00 [facility] CBC W/PLT COUNT & AUTO 2021-02-04 03:21:00 Arnav [facility] COMPREHENSIVE METABOLIC 2021-02-04 03:21:00 Ian [facility] MAGNESIUM 2021-02-04 03:21:00 Ian [facility] PHOSPHORUS 2021-02-04 03:21:00 Arnav [facility] PROTHROMBIN TIME/INR 2021-02-04 03:21:00 [facility] CALCIUM, IONIZED 2021-02-04 03:21:00 Arnav [facility] BLOOD GAS, VENOUS 2021-02-04 03:21:00 [facility] APTT 2021-02-04 03:21:00 Lorna Poe [facility] CBC W/PLT COUNT & AUTO 2021-02-04 03:21:00 mary ann [facility] (CELLAVISION MANUAL DIFF) 2021-02-04 03:21:00 [facility] XR CHEST 1 VIEW PORTABLE 2021-02-04 00:58:00 [facility] XR CHEST 1 VIEW PORTABLE 2021-02-03 20:56:00 SereniThomas harrell [facility] / BEDSIDE [facility] CBC (HEMOGRAM ONLY) 2021-02-03 20:22:00 [facility] POCT-GLUCOSE METER 2021-02-03 17:35:00 Ovidio [facility] BLOOD CULTURE 2021-02-03 17:33:00 [facility] BLOOD GAS, VENOUS 2021-02-03 17:23:00 [facility] BASIC METABOLIC PANEL 2021-02-03 17:22:00 Melchor Sosa [facility] CT CHEST WITH IV CONTRAST 2021-02-03 14:01:00 Melchor Sosa [facility] POCT-GLUCOSE METER 2021-02-03 11:38:00 Ovidio [facility] BLOOD GAS, ARTERIAL 2021-02-03 11:33:00 [facility] VITAMIN B12 AND FOLATE 2021-02-03 10:39:00 [facility] CBC (HEMOGRAM ONLY) 2021-02-03 10:39:00 [facility] W/PLT COUNT & AUTO 2021-02-03 06:50:00 Gul [facility] COMPREHENSIVE METABOLIC 2021-02-03 06:50:00 Esla [facility] MAGNESIUM 2021-02-03 06:50:00 Esla, [facility] PHOSPHORUS 2021-02-03 06:50:00 Gul, [facility] PROTHROMBIN TIME/INR 2021-02-03 06:50:00 Gul, [facility] CALCIUM, IONIZED 2021-02-03 06:50:00 Gul [facility] BLOOD GAS, VENOUS 2021-02-03 06:50:00 [facility] CBC W/PLT COUNT & AUTO 2021-02-03 06:50:00 Gul [facility] POCT-GLUCOSE METER 2021-02-03 05:48:00 [facility] XR CHEST 1 VIEW PORTABLE 2021-02-03 03:26:00 [facility] / BEDSIDE [facility] TRANSFUSE LEUKO-REDUCED 2021-02-03 03:25:00 Pranav Cortez [facility] RED BLOOD CELLS [facility] POCT-GLUCOSE METER 2021-02-03 00:13:00 Ovidio [facility] BLOOD GAS, VENOUS 2021-02-02 23:26:00 [facility] BASIC METABOLIC PANEL 2021-02-02 23:26:00 [facility] MAGNESIUM 2021-02-02 23:26:00 [facility] PHOSPHORUS 2021-02-02 23:26:00 [facility] CBC (HEMOGRAM ONLY) 2021-02-02 23:26:00 [facility] POCT-GLUCOSE METER 2021-02-02 18:37:00 Ovidio, [facility] BASIC METABOLIC PANEL 2021-02-02 17:05:00 Esla, [facility] PHOSPHORUS 2021-02-02 17:05:00 Esjanene, [facility] MAGNESIUM 2021-02-02 17:05:00 [facility], [facility] VANCOMYCIN LEVEL, TROUGH 2021-02-02 17:04:00 [facility] BLOOD GAS, VENOUS 2021-02-02 17:04:00 [facility] BASIC METABOLIC PANEL 2021-02-02 13:17:00 Esla, [facility] PHOSPHORUS 2021-02-02 13:17:00 [facility] POCT-GLUCOSE METER 2021-02-02 12:15:00 Ovidio [facility] SODIUM, RANDOM URINE 2021-02-02 10:28:00 Esid, [facility] CHLORIDE, RANDOM URINE 2021-02-02 10:28:00 [facility] POTASSIUM, RANDOM URINE 2021-02-02 10:28:00 [facility], [facility] LACTIC ACID, ARTERIAL 2021-02-02 10:25:00 [facility], [facility] CBC (HEMOGRAM ONLY) 2021-02-02 10:25:00 Jorge Kumar [facility] BLOOD GAS, ARTERIAL 2021-02-02 08:34:00 [facility] POCT-GLU[facility]SE METER 2021-02-02 06:47:00 Ovidio, [facility] BLOOD GAS, ARTERIAL 2021-02-02 03:19:00 [facility] CBC W/PLT COUNT & AUTO 2021-02-02 03:18:00 Howie José [facility] COMPREHENSIVE METABOLIC 2021-02-02 03:18:00 Esla, Melchor [facility] MAGNESIUM 2021-02-02 03:18:00 Merissajanene Melchor [facility] PHOSPHORUS 2021-02-02 03:18:00 Arnav [facility] PROTHROMBIN TIME/INR 2021-02-02 03:18:00 Gómezmary ann [facility] CALCIUM, IONIZED 2021-02-02 03:18:00 ArnavCodiHowie [facility] HC LAB HIV-1 AG W/HIV-1&2 2021-02-02 03:18:00 Carlos Damian [facility] CBC W/PLT COUNT & AUTO 2021-02-02 03:18:00 SerThomas luciano [facility] DIFFERENTIAL [facility] XR CHEST 1 VIEW PORTABLE 2021-02-02 03:01:00 [facility] POCT-GLUCOSE METER 2021-02-01 23:51:00 Ovidio [facility] BLOOD GAS, ARTERIAL 2021-02-01 20:55:00 Ian [facility] CBC (HEMOGRAM ONLY) 2021-02-01 20:54:00 [facility] BASIC METABOLIC PANEL 2021-02-01 20:54:00 [facility] MAGNESIUM 2021-02-01 20:54:00 [facility] PHOSPHORUS 2021-02-01 20:54:00 [facility] LACTIC ACID, ARTERIAL 2021-02-01 20:54:00 SeemaYaquelin [facility] HEMOGLOBIN AND HEMATOCRIT 2021-02-01 18:07:00 [facility] LACTIC ACID, ARTERIAL 2021-02-01 18:07:00 [facility] POCT-GLUCOSE METER 2021-02-01 18:05:00 Ovidio [facility] BLOOD GAS, ARTERIAL 2021-02-01 15:42:00 Merissajanene [facility] CBC W/PLT COUNT & AUTO 2021-02-01 15:40:00 Merissaid [facility] COMPREHENSIVE METABOLIC 2021-02-01 15:40:00 Ian [facility] MAGNESIUM 2021-02-01 15:40:00 Ian [facility] PHOSPHORUS 2021-02-01 15:40:00 Ian [facility] CBC W/PLT COUNT & AUTO 2021-02-01 15:40:00 [facility] (CELLAVISION MANUAL DIFF) 2021-02-01 15:40:00 Ian [facility] XR ABDOMEN/KUB 1 VIEW 2021-02-01 15:15:00 José, [facility] PORTABLE [facility] GLUCOSE, BODY FLUID 2021-02-01 15:07:00 Sander Nolan [facility] XR CHEST 1 VIEW PORTABLE 2021-02-01 15:05:00 José, [facility] / [facility]IDE Medical Center BODY FLUID CELL COUNT 2021-02-01 14:38:41 Jorge Mays [facility] WITH [facility] AMYLASE PERITONEAL FLUID 2021-02-01 14:38:41 Jorge Mays [facility] PROTEIN, BODY FLUID 2021-02-01 14:38:41 Jorge Mays [facility] PH, BODY FLUID 2021-02-01 14:38:41 Jorge Mays [facility] SPIN/CONCENTRATION CHARGE 2021-02-01 14:38:00 Ian [facility] AFB CULTURE + SMEAR 2021-02-01 14:38:00 [facility] WOUND CULTURE + GRAM 2021-02-01 14:38:00 [facility] STAIN [facility] FUNGUS CULTURE + SMEAR 2021-02-01 14:38:00 [facility] BODY FLUID CELL COUNT 2021-02-01 14:32:35 Jorge Mays [facility] WITH DIFFERENTIAL [facility] PROTEIN, BODY FLUID 2021-02-01 14:32:35 Jorge Mays [facility] CYTOLOGY 2021-02-01 14:32:00 [facility] AFB CULTURE + SMEAR 2021-02-01 14:32:00 [facility] (NON-SPUTUM) [facility] BODY FLUID CULTURE + GRAM 2021-02-01 14:32:00 [facility] Jorge [facility] FUNGUS CULTURE + SMEAR 2021-02-01 14:32:00 [facility] RRL CRITICAL LABS 2021-02-01 14:04:53 [facility] es (ABG,NA,K,H&H,GLUCOSE) Medical C enter CALCIUM, IONIZED 2021-02-01 14:04:53 [facility] BLOOD GAS, ARTERIAL 2021-02-01 14:04:53 [facility] SODIUM NA-STAT LAB 2021-02-01 14:04:53 [facility] POTASSIUM-STAT LAB 2021-02-01 14:04:53 [facility] GLUCOSE-STAT LAB 2021-02-01 14:04:53 [facility] HGB/HCT (H&H) - STAT LAB 2021-02-01 14:04:53 [facility] TISSUE EXAM 2021-02-01 13:43:00 Jorge Mays [facility] RRL CRITICAL LABS 2021-02-01 11:35:51 [facility] es (ABG,NA,K,H&H,GLUCOSE) Medical C enter CALCIUM, IONIZED 2021-02-01 11:35:51 [facility] BLOOD GAS, ARTERIAL 2021-02-01 11:35:51 [facility] SODIUM NA-STAT LAB 2021-02-01 11:35:51 [facility] POTASSIUM-STAT LAB 2021-02-01 11:35:51 [facility] GLUCOSE-STAT LAB 2021-02-01 11:35:51 [facility] THORACOSCOPY 2021-02-01 09:32:00 Jorge Mays [facility] (VATS[facility] Medical [facility] ter COMPREHENSIVE METABOLIC 2021-02-01 07:44:00 Esla [facility] PHOSPHORUS 2021-02-01 07:44:00 Esjanene [facility] MAGNESIUM 2021-02-01 07:44:00 [facility] ([facility] ONLY[facility] 2021-02-01 07:44:00 Ian [facility] LIPASE 2021-02-01 07:44:00 Jorge Mays [facility] POCT-GLUCOSE METER 2021-02-01 06:50:00 Sander Nolan [facility] PREPARE PLASMA 2021-02-01 06:32:00 Pranav Cortez [facility] BLOOD GAS, ARTERIAL 2021-02-01 03:48:00 SerThomas luciano [facility] CBC W/PLT COUNT & AUTO 2021-02-01 03:47:00 Gul Howie [facility] COMPREHENSIVE METABOLIC 2021-02-01 03:47:00 Esla [facility] MAGNESIUM 2021-02-01 03:47:00 [facility] PHOS[facility]US 2021-02-01 03:47:00 Codi Joséeel [facility] PROTHROMBIN TIME/INR 2021-02-01 03:47:00 Arnav [facility] CALCIUM, IONIZED 2021-02-01 03:47:00 Gul, Howie Habib [facility] APTT 2021-02-01 03:47:00 [facility], [facility] CBC W/PLT COUNT & AUTO 2021-02-01 03:47:00 SereniThomas harrell [facility] DIFFERENTIAL [facility] POCT-GLUCOSE METER 2021-02-01 00:27:00 Ovidio, [facility] POCT-GLUCOSE METER 2021-01-31 21:27:00 Ovidio, [facility] ABORH, MANUAL 2021-01-31 21:00:00 Ovidio, [facility] TYPE AND SCREEN, 2021-01-31 17:58:00 [facility] SARS-COV2/RT-PCR ([facility] & 2021-01-31 17:58:[address] [facility] REF LABS) [facility] POCT-GLUCOSE METER 2021-01-31 17:22:00 Ovidio, [facility] US ABDOMEN LIMITED 2021-01-31 14:25:00 [facility] POCT-GLUCOSE METER 2021-01-31 12:30:00 Nila [facility] CT BRAIN WITHOUT IV 2021-01-31 11:50:[address] [facility] CT CHEST WITH IV CONTRAST 2021-01-31 11:50:00 [facility], [facility] CT ABDOMEN/PELVIS WITH IV 2021-01-31 11:50:00 [facility], [facility] LEGIONELLA ANTIGEN, URINE 2021-01-31 10:40:00 [facility], [facility] LACTIC ACID, ARTERIAL 2021-01-31 10:40:00 Ovidio [facility] AMMONIA 2021-01-31 10:39:00 [facility] 2D ECHO MODE W/O DOPPLER 2021-01-31 10:18:02 Coretta Kolb [facility] TSH/FREE T4 IF INDICATED 2021-01-31 08:57:00 José [facility] XR CHEST 1 VIEW PORTABLE 2021-01-31 07:55:00 [facility] POCT-GLUCOSE METER 2021-01-31 06:11:00 Nila [facility] BLOOD GAS, ARTERIAL 2021-01-31 02:55:[address] [facility] HEMOGLOBIN A1C 2021-01-31 02:54:[address] [facility] HEPATITIS C PCR, 2021-01-31 02:54:00 Coretta Kolb [facility] CBC W/PLT COUNT & AUTO 2021-01-31 02:54:00 Gul [facility] COMPREHENSIVE METABOLIC 2021-01-31 02:54:00 Ian [facility] LIPID PANEL 2021-01-31 02:54:[address] [facility] MAGNESIUM 2021-01-31 02:54:00 Ian [facility] PHOSPHORUS 2021-01-31 02:54:00 Gul [facility] PROTHROMBIN TIME/INR 2021-01-31 02:54:00 Gómezl [facility] CALCIUM, IONIZED 2021-01-31 02:54:00 Gómezl [facility] LACTATE DEHYDROGENASE 2021-01-31 02:54:00 José [facility] ([facility]) [facility] CBC W/PLT COUNT & AUTO 2021-01-31 02:54:00 Reji [facility] (CELLAVISION MANUAL DIFF) 2021-01-31 02:54:00 Reji [facility] POCT-GLUCOSE METER 2021-01-30 23:52:00 AdhNila valencia [facility] XR ABDOMEN/KUB 1 VIEW 2021-01-30 20:09:00 Rizwan Man [facility] POCT-GLUCOSE METER 2021-01-30 18:06:00 Mabel Nila [facility] LACTIC ACID, VENOUS 2021-01-30 17:52:[address] [facility] ECG 12-LEAD 2021-01-30 16:45:08 Unknown, Hl7 [facility] ECG 12-LEAD 2021-01-30 16:45:08 Unknown, Hl7 [facility] XR ABDOMEN/KUB 1 VIEW 2021-01-30 15:37:00 Rizwan Man [facility] XR CHEST 1 VIEW PORTABLE 2021-01-30 15:32:00 Coretta Kolb Chi [facility] MRSA SCREEN 2021-01-30 15:14:[address] [facility] BLOOD GAS, ARTERIAL 2021-01-30 15:12:[address] [facility] LACTIC ACID, VENOUS 2021-01-30 15:05:[address] [facility] LACTATE DEHYDROGENASE 2021-01-30 15:05:00 Coretta Kolb [facility] (LDH) [facility] AMYLASE 2021-01-30 15:05:00 Coretta Kolb [facility] VANCOMYCIN LEVEL, RANDOM 2021-01-30 15:04:00 Vallabh, Jolene I [facility] CYTOLOGY 2021-01-30 15:01:00 Coretta Kolb [facility] PROTEIN, BODY FLUID 2021-01-30 15:00:00 Coretta Kolb Chi [facility] BODY FLUID CULTURE + GRAM 2021-01-30 15:00:[address] [facility] BODY FLUID CELL COUNT 2021-01-30 15:00:00 Coretta Kolb [facility] AMYLASE, BODY FLUID 2021-01-30 15:00:00 Adhi, [facility] GLUCOSE, BODY FLUID 2021-01-30 15:00:00 Adhi, [facility] LACTATE DEHYDROGENASE 2021-01-30 15:00:00 Adhi, [facility] (LDH)[facility] TRIGLYCERIDES, PLEURAL 2021-01-30 14:59:00 Adhi, Nilathomas Noyola [facility] PROTHROMBIN TIME/INR 2021-01-30 13:37:[address] [facility] HIGH SENSITIVITY TROPONIN 2021-01-30 13:37:[address] [facility] RESPIRATORY PANEL 2021-01-30 13:37:00 Rizwan [facility] XR CHEST 1 VIEW PORTABLE 2021-01-30 13:23:00 Rizwan [facility] / BEDSIDE [facility] POCT-GLUCOSE METER 2021-01-30 13:22:00 Adhi, [facility] BLOOD CULTURE 2021-01-30 13:14:[address] [facility] LEGIONELLA ANTIGEN, URINE 2021-01-30 13:06:[address] [facility] BLOOD GAS, VENOUS 2021-01-30 12:36:00 Coretta Kolb [facility] BLOOD CULTURE 2021-01-30 12:28:[address] [facility] BLOOD CULTURE 2021-01-30 12:28:00 Rizwan [facility] IDENTIFICATION PANEL [facility] ter BLOOD GAS, ARTERIAL 2021-01-30 12:26:[address] [facility] PROTHROMBIN TIME/INR 2021-01-30 12:26:[address] [facility] TSH/FREE T4 IF INDICATED 2021-01-30 12:26:[address] [facility] VITAMIN B12 AND FOLATE 2021-01-30 12:26:[address] [facility] APTT 2021-01-30 12:26:00 [facility] PHOSPHORUS 2021-01-30 12:25:[address] [facility] MAGNESIUM 2021-01-30 12:25:[address] [facility] COMPREHENSIVE METABOLIC 2021-01-30 12:25:00 Rizwan [facility] PANEL [facility] CBC W/PLT COUNT & AUTO 2021-01-30 12:25:00 Rizwan [facility] DIFFERENTIAL [facility] LACTIC ACID, VENOUS 2021-01-30 12:25:[address] [facility] CBC W/PLT COUNT & AUTO 2021-01-30 12:25:00 Rizwan [facility] DIFFERENTIAL [facility] (CELLAVISION MANUAL DIFF) 2021-01-30 12:25:[address] [facility] EKG-SCANNED 2021-01-30 00:00:00 ProviderGregory [facility] Scanning [facility] Plan of Care Planned Activity Planned Date Details Comments Source Future Scheduled 2024-02-01 Lipid panel (procedure) [facility] 00:00:00 [code = 46800920] Medical Ce nter Future Scheduled 2022-01-[address] [facility] 00:00:00 Counseling and Medical Cente r Screening (12+) [code = Tobacco Cessation Counseling and Screening (12+)] Future Scheduled 2021-10-11 INFLUENZA VACCINE (#1) [facility]00 [code = INFLUENZA Medical Ce nter VACCINE (#1)] Future Scheduled 2021-02-[address] [facility] 00:00:00 (12+) [code = Medical Center DEPRESSION SCREENING (12+)] Future Scheduled 2008-01-13 SHINGLES VACCINES ([address] [facility] 00:00:00 2) [code = SHINGLES [facility] Center VACCINES (1 of 2)] Future Scheduled 1977 DTAP/TDAP/TD VACCINES [facility] 00:00:00 (1 - Tdap) [code = Medical C enter DTAP/TDAP/TD VACCINES (1 - Tdap)] Future Scheduled 1964-01-[address] [facility] 00:00:00 0-64 YRS (1 - PCV) Medical C enter [code = PNEUMOCOCCAL VACCINE 0-64 YRS (1 - PCV)] Future Scheduled 1958 COVID-19 VACCINE (#1) [facility] 00:00:00 [code = COVID-[address] VACCINE (#1)] Future Scheduled 1958 CT Colonography (combo) [facility] 00:00:00 [code = CT Colonography [facility] (combo)] Future Scheduled 1958 Screening for malignant [facility] 00:00:00 neoplasm of colon Medical Ce nter (procedure) [code = 885132301] Future Scheduled 1958 Screening for malignant [facility] Test 00:00:00 neoplasm of colon Medical Ce nter (procedure) [code = 936791720] Future Scheduled 1958 Screening for malignant [facility] Test 00:00:00 neoplasm of colon Medical Ce nter (procedure) [code = 308253394] Future Scheduled 1958 Screening for malignant [facility] Test 00:00:00 neoplasm of colon Medical Ce nter (procedure) [code = 413200706] Future Scheduled 1960 Sigmoidoscopy [code = [facility] S[facility]oscopy] Medical Cente r Encounters Start End Encounter Admission Attending Care Care Encounter Source Date/Time Date/Time Type Type Clinicians Facility Department ID 2021-01-30 2021-02-24 Inpatient UR ARCHANA CHEN [facility] [id number] [facility] 11:38:00 10:00:00 MICHELLE lares 2021-01-30 2021-02-24 [facility] Nila Monroe Dennys [facility] [id number] 11:38:[facility] 10:00:00 Encounter Ovidio [facility] Mary, Josietr Stephane Acosta [facility] Salina Sanderson Heather Renee Athreya, Khannan Kameshvaran 2021-02-05 2021-02-05 Surgery Ericka, [facility] [id number] 13:30:00 14:09:[address] [facility] 2021-02-05 2021-02-05 Anesthesia Johnna Weldon [facility] [id number] [facility] 13:30:00 13:30:[address] [place] [facility] 2021-02-01 2021-02-01 Surgery Ump[place]Jorge [facility] [id number] 09:25:00 14:34:00 [facility] 2021-02-01 2021-02-01 Anesthesia Oneil Zamorano [facility] [id number] 09:44:00 14:13:00 Event Ignacio Muhammad [facility] 2021-02-01 2021-02-01 Outside Darío, [facility] [id number] 00:00:00 00:00:[address] [facility] 2021-01-30 2021-01-30 Outpatient [facility] [id number] [facility] 00:00:00 23:59:00 Claude 2021-01-30 2021-01-30 Orders [facility] [id number] 00:00:00 00:00:[address] [facility] 2021-01-30 2021-01-30 Travel [facility] [id number] [facility]00 [facility] 2021-01-29 2021-01-29 Telephone Mabel, [facility] [id number] [facility] Results Test Description Test Time Test Comments Results Result Comments Source AFB culture + smear (non-sputum) 2021-03-23 15:36:09 Test Item Value Reference Range Interpretation Comme nts Result (test code = 6463-4) No acid-fast bacilli isolated in 42 day s AFB Smear (test code = 29436-8) No acid fast bacilli seen [facility] (NON-SPUTUM)2021-03-23 15:36:09 Test Item Value Reference Range Interpretation Comments CULTURE (BEAKER) (test No acid-fast bacilli code = 1095) isolated in 42 days AFB SMEAR (BEAKER) No acid fast bacilli (test code = 994) seen AFB CULTURE + SMEAR (NON-SPUTUM)2021-03-23 15:36:06 Test Item Value Reference Range Interpretation Comments CULTURE (BEAKER) (test No acid-fast bacilli code = 1095) isolated in 42 days AFB SMEAR (BEAKER) No acid fast bacilli (test code = 994) seen Fungus culture + [id number] 00:10:39 Test Item Value Reference Range Interpretation Comments Result (test code = No fungus isolated in 6463-4) 28 days Fungus Smear (test No fungi seen code = 1406) [facility] + [id number] 00:10:39 Test Item Value Reference Range Interpretation Comments CULTURE (BEAKER) (test No fungus isolated in code = 1095) 28 days FUNGUS SMEAR (BEAKER) No fungi seen (test code = 1406) FUNGUS CULTURE + [id number] 21:03:59 Test Item Value Reference Range Interpretation Comments CULTURE (BEAKER) (test No fungus isolated in code = 1095) 28 days FUNGUS SMEAR (BEAKER) No fungi seen (test code = 1406) POC-Glucose [id number] 08:02:16 Test Item Value Reference Range Interpretation Comments POC-Glucose Meter (test 144 mg/dL 70-110 H : TE STED AT [facility] code = 1538) [address] [facility] 30: Consumer Product Advisor/Techni bobby ID = [id number] for Diogenes Navarrete on Lab Interpretation (test Abnormal code = 59369-6) [facility] Center[facility]GLUCOSE [id number] 08:02:16 Test Item Value Reference Range Interpretation Comments POC-GLUCOSE METER 144 mg/dL 70-110 H : TESTED A T [facility] 6720 (BEAKER) (test code = DIONI G[place], 1538) [address]: Consumer Product Advisor/Techni bobby ID = [id number] for Rubén Telles Basic Metabolic [id number] 04:47:30 Test Item Value Reference Range Interpretation Comments Sodium (test code = 134 meq/L 136-145 L 2951-2) Potassium (test code = 4.5 meq/L 3.5-5.1 2823-3) Chloride (test code = 99 meq/L 98-107 2075-0) CO2 (test code = 29 meq/L 22-29 2028-9) BUN (test code = 10 mg/dL 7-21 3094-0) Creatinine (test code 0.66 mg/dL 0.57-1.25 = 2160-0) Glucose (test code = 206 mg/dL 70-105 H 2345-7) Calcium (test code = 10.7 mg/dL 8.4-10.2 H 92357-2) EGFR (test code = 122 mL/min/1.73 [place] [address]-5) NOT ACCURATE CREATININE CLEARANCE IN PREDICTING GLOMERULAR FILTRATION RATE . ESTIMATED GFR I S NOT APPLICABLE FOR DIALYSIS PATIENTS. RUTHIE (test code = RUTHIE) Consumer Product Advisor ID - ALVERTO G Lab Interpretation Abnormal (test code = 74243-3) [facility] Center[facility]esium2022-01-15 04:47:30 Test Item Value Reference Range Interpretation Comments Magnesium (test code = 1.9 mg/dL 1.6-2.6 92400-2) RUTHIE (test code = RUTHIE) Consumer Product Advisor ID - ALVERTO G Lab Interpretation (test Normal code = 79837-3) [facility] Center[facility]IC METABOLIC [id number] 04:47:30 Test Item Value Reference Range Interpretation Comments SODIUM (BEAKER) 134 meq/L 136-145 L (test code = 381) POTASSIUM (BEAKER) 4.5 meq/L 3.5-5.1 (test code = 379) CHLORIDE (BEAKER) 99 meq/L 98-107 (test code = 382) CO2 (BEAKER) (test 29 meq/L 22-29 code = 355) BLOOD UREA NITROGEN 10 mg/dL 7-21 (BEAKER) (test code = 354) CREATININE (BEAKER) 0.66 mg/dL 0.57-1.25 (test code = 358) GLUCOSE RANDOM 206 mg/dL 70-105 H (BEAKER) (test code = 652) CALCIUM (BEAKER) 10.7 mg/dL 8.4-10.2 H (test code = 697) EGFR (BEAKER) (test 122 mL/min/1.73 ESTIM ATED GFR IS code = 1092) sq m NOT ACCURATE CREATININE CLEARANCE IN PREDICTING GLOMERULAR FILTRATION RATE . ESTIMATED GFR I S NOT APPLICABLE FOR DIALYSIS PATIEN TS. Consumer Product Advisor ID - ALVERTO [id number] 04:47:30 Test Item Value Reference Range Interpretation Comments MAGNESIUM (BEAKER) (test code = 1.9 mg/dL 1.6-2.6 627) Consumer Product Advisor ID - ALVERTO GPOCT-GLUCOSE [id number] 20:56:33 Test Item Value Reference Range Interpretation Comments POC-GLUCOSE METER 165 mg/dL 70-110 H : TESTED A T [facility] 6720 (BEAKER) (test code = [facility], 1538) [address]: Consumer Product Advisor/Techni bobby ID = [id number] for Re hieu Luna POCT-GLUCOSE [id number] 17:24:50 Test Item Value Reference Range Interpretation Comments POC-GLUCOSE METER 128 mg/dL 70-110 H : TESTED A T [facility] 6720 (BEAKER) (test code = [facility], 1538) 83916: Consumer Product Advisor/Techni bobby ID = [id number] for Felix Valdivia POCT-GLUCOSE [id number] 13:05:49 Test Item Value Reference Range Interpretation Comments POC-GLUCOSE METER 154 mg/dL 70-110 H : TESTED A T [facility] 6720 (BEAKER) (test code = [facility], 1538) 92516: Consumer Product Advisor/Techni bobby ID = [id number] for Felix Valdivia SARS-CoV2/RT-PCR (Symptomatic ONLY)2021-02-23 12:31:29 Test Item Value Reference Range Interpretation Comments SARS-COV2/RT-PCR Negative Not Detected, (test code = Negative, See 60958-0) external report for linked test SARS-COV-2 [facility] TAMIKO PERFORMING LAB (test code = 81746-5) RUTHIE (test code = Negative result for this RUTHIE) test determines that SARS-CoV-2 RNA was not present in the specimen above the Limit of Detection (LOD). However, Negative results do not preclude SARS-CoV-2 infection and should not be used as the sole basis for treatment or patient management decisions. Negative results must be combined with clinical observations, patient history, and epidemiological information. A false negative result may occur if a specimen is improperly collected, transported or handled. A false negative result should be considered if patient's recent exposures or clinical presentation indicate that COVID-19 (SARS-CoV-2) is likely and diagnostic tests for other causes of illness are negative. Re-testing should be considered in cases of suspected false negatives. The limit of detection for this assay is 800 copies/mL. This SARS CoV-2 test is a real-time RT-PCR test intended for the qualitative detection of nucleic acid from SARS-CoV-2 in a nasopharyngeal swab specimen collected from individuals suspected of COVID-19 by their healthcare provider. This test has not been Food and Drug Administration (FDA) cleared or approved. This is a modified version of an approved Emergency Use Authorization (EUA) and is in the process of review by the FDA. Once authorized by the FDA, the issued EUA will be effective until the declaration that circumstances exist justifying the authorization of the emergency use of in vitro diagnostic tests for detection and/or diagnosis of COVID-19 is terminated under Section 564(b)(2) of the Act or the EUA is revoked under Section 564(g) of the Act. Fact Sheet for Healthcare Providers:https://www.[employer] idel[employer]/sites/default/f keith/product/documents/F act_Sheet_HC_Providers_L fyd_UBDG-MpV-8.pdf Fact Sheet for Healthcare Patients:https://www.jeanna del.[employer]/sites/default/fi les/product/documents/Fa ct_Sheet_Patients_Lyra_S ARS-CoV-2.pdf Performing Laboratory:[facility] [place] [address] [facility]2021-02-23 12:31:29 Test Item Value Reference Range Interpretation Comments SARS-COV2/RT-PCR (test Negative Not Detected, Negative, code = 8752188) See external report for linked test SARS-COV-2 PERFORMING LAB [facility] (test code = 4168807) Negative result for this test determines that SARS-CoV-2 RNA was not present in the specimen above the Limit of Detection (LOD). However, Negative results do not preclude SARS-CoV-2 infection and should not be used as the sole basis for treatment or patient management decisions. Negative results must be combined with clinical observations, patient history, and epidemiological information. A false negative result may occur if a specimen is improperly collected, transported or handled. A false negative result should be considered if patient's recent exposures or clinical presentation indicate that COVID-19 (SARS-CoV-2) is likely and diagnostic tests for other causes of illness are negative. Re-testing should be considered in cases of suspected false negatives.The limit of detection for this assay is 800 copies/mL.This SARS CoV-2 test is a real-time RT-PCR test intended for the qualitative detection of nucleic acid from SARS-CoV-2 in a nasopharyngeal swab specimen collected from individuals suspected of COVID-19 by their healthcare provider.This test has not been Food and Drug Administration (FDA) cleared or approved. This is a modified version of an approved Emergency Use Authorization (EUA) and is in the process of review by the FDA. Once authorized by the FDA, the issued EUA will be effective until the declaration that circumstances exist justifying the authorization of the emergency use ofin vitro diagnostic tests for detection and/or diagnosis of COVID-19 is terminated under Section 564(b)(2) of the Act or the EUA is revoked under Section 564(g) of the Act.Fact Sheet for Healthcare Prov iders:https://www.[employer]/sites/default/files/product/documents/Fact_Sheet_HC _Wllkdubpt_Tksd_IPTV-KkU-4.pdfFact Sheet for Healthcare Patients:https://www.[employer]/sites/default/files/product/docume nts/Kfyu_Todsr_Gtmdcniy_Kfrg_GXOM-IaM-2.pdfPerforming Laboratory:[facility], [place] [address]VEIF-OFQFOZU METER 2021-02-23 08:17:59 Test Item Value Reference Range Interpretation Comments POC-GLUCOSE METER 236 mg/dL 70-110 H : TESTED A T [facility] 6720 (BEAKER) (test code = [facility], [facility]) 17545: Consumer Product Advisor/Techni bobby ID = [id number] for Madai kimFelix cardoza POCT-GLUCOSE [id number] 21:41:22 Test Item Value Reference Range Interpretation Comments POC-GLUCOSE METER 199 mg/dL 70-110 H : TESTED A T [facility] 6720 (BEAKER) (test code = [facility], [facility]) 58403: Consumer Product Advisor/Techni bobby ID = [id number] for PI TTS, CRISTINA POCT-GLUCOSE [id number] 17:41:07 Test Item Value Reference Range Interpretation Comments POC-GLUCOSE METER 138 mg/dL 70-110 H : TESTED A T [facility] 6720 (BEAKER) (test code = [facility], [facility]) 84783: Consumer Product Advisor/Techni bobby ID = [id number] for OR PHEY, MYNOR POCT-GLUCOSE [id number] 11:59:32 Test Item Value Reference Range Interpretation Comments POC-GLUCOSE METER 192 mg/dL 70-110 H : TESTED A T [facility] 6720 (BEAKER) (test code = [facility], [facility]) 41656: Consumer Product Advisor/Techni bobby ID = [id number] for OR PHEY, MYNOR POCT-GLUCOSE [id number] 07:52:49 Test Item Value Reference Range Interpretation Comments POC-GLUCOSE METER 216 mg/dL 70-110 H : TESTED A T [facility] 6720 (BEAKER) (test code = [facility], [facility]) 44999: Consumer Product Advisor/Techni bobby ID = [id number] for OR PHEY, MYNOR POCT-GLUCOSE [id number] 19:58:21 Test Item Value Reference Range Interpretation Comments POC-GLUCOSE METER 161 mg/dL 70-110 H : TESTED A T [facility] 6720 (BEAKER) (test code = [facility], [facility]) 02535: Consumer Product Advisor/Techni bobby ID = [id number] for PI TTS, CRISTINA POCT-GLUCOSE [id number] 17:01:38 Test Item Value Reference Range Interpretation Comments POC-GLUCOSE METER 125 mg/dL 70-110 H : TESTED A T [facility] 6720 (BEAKER) (test code = [facility], 1538) 27246: Consumer Product Advisor/Techni bobby ID = [id number] for Abram PAULINO POCT-GLUCOSE [id number] 12:17:24 Test Item Value Reference Range Interpretation Comments POC-GLUCOSE METER 185 mg/dL 70-110 H : TESTED A T [facility] 6720 (BEAKER) (test code = [facility], 1538) 36474: Consumer Product Advisor/Techni bobby ID = [id number] for Abram PAULINO POCT-GLUCOSE [id number] 08:29:46 Test Item Value Reference Range Interpretation Comments POC-GLUCOSE METER 143 mg/dL 70-110 H : TESTED A T [facility] 6720 (BEAKER) (test code = [facility], 1538) 74116: Consumer Product Advisor/Techni bobby ID = [id number] for Abram PAULINO [id number] 06:36:54 Test Item Value Reference Range Interpretation Comments MAGNESIUM (BEAKER) (test code = 1.7 mg/dL 1.6-2.6 627) Consumer Product Advisor ID - REANNA LBASIC METABOLIC [id number] 06:36:53 Test Item Value Reference Range Interpretation Comments SODIUM (BEAKER) 135 meq/L 136-145 L (test code = 381) POTASSIUM (BEAKER) 3.6 meq/L 3.5-5.1 (test code = 379) CHLORIDE (BEAKER) 99 meq/L 98-107 (test code = 382) CO2 (BEAKER) (test 31 meq/L 22-29 H code = 355) BLOOD UREA NITROGEN 9 mg/dL 7-21 (BEAKER) (test code = 354) CREATININE (BEAKER) 0.66 mg/dL 0.57-1.25 (test code = 358) GLUCOSE RANDOM 149 mg/dL 70-105 H (BEAKER) (test code = 652) CALCIUM (BEAKER) 10.1 mg/dL 8.4-10.2 (test code = 697) EGFR (BEAKER) (test 122 mL/min/1.73 ESTIM ATED GFR IS code = 1092) sq m NOT ACCURATE CREATININE CLEARANCE IN PREDICTING GLOMERULAR FILTRATION RATE . ESTIMATED GFR I S NOT APPLICABLE FOR DIALYSIS PATIEN TS. Consumer Product Advisor ID - REANNA LPOCT-GLUCOSE [id number] 20:07:42 Test Item Value Reference Range Interpretation Comments POC-GLUCOSE METER 152 mg/dL 70-110 H : TESTED A T [facility] 6720 (BEAKER) (test code = [facility], 1538) 06184: Consumer Product Advisor/Techni bobby ID = [id number] for CRISTINA SHEIKH POCT-GLUCOSE [id number] 17:13:20 Test Item Value Reference Range Interpretation Comments POC-GLUCOSE METER 124 mg/dL 70-110 H : TESTED A T [facility] 6720 (BEAKER) (test code = [facility], [facility]) 76340: Consumer Product Advisor/Techni bobby ID = [id number] for Ba rrera, Ai POCT-GLUCOSE [id number] 12:33:39 Test Item Value Reference Range Interpretation Comments POC-GLUCOSE METER 191 mg/dL 70-110 H : TESTED A T [facility] 6720 (BEAKER) (test code = [facility], 1538) 85585: Consumer Product Advisor/Techni bobby ID = [id number] for Ba rrera, Ai POCT-GLUCOSE [id number] 07:54:08 Test Item Value Reference Range Interpretation Comments POC-GLUCOSE METER 176 mg/dL 70-110 H : TESTED A T [facility] 6720 (BEAKER) (test code = [facility], [facility]) 66856: Consumer Product Advisor/Techni bobby ID = [id number] for Ba rrera, Ai POCT-GLUCOSE [id number] 20:47:01 Test Item Value Reference Range Interpretation Comments POC-GLUCOSE METER 142 mg/dL 70-110 H : TESTED A T [facility] 6720 (BEAKER) (test code = [facility], 1538) 49566: Consumer Product Advisor/Techni bobby ID = [id number] for Re yes, Sairy POCT-GLUCOSE [id number] 18:00:39 Test Item Value Reference Range Interpretation Comments POC-GLUCOSE METER 149 mg/dL 70-110 H : TESTED A T [facility] 6720 (BEAKER) (test code = [facility], 1538) 93307: Consumer Product Advisor/Techni bobby ID = [id number] for Ma rtinez Mcleod, Tanairy POCT-GLUCOSE [id number] 12:13:44 Test Item Value Reference Range Interpretation Comments POC-GLUCOSE METER 179 mg/dL 70-110 H : TESTED A T [facility] 6720 (BEAKER) (test code = [facility], [facility]) 02763: Consumer Product Advisor/Techni bobby ID = [id number] for Ma rtinez Mcleod, Tanairy POCT-GLUCOSE [id number] 08:00:34 Test Item Value Reference Range Interpretation Comments POC-GLUCOSE METER 170 mg/dL 70-110 H : TESTED A T [facility] 6720 (BEAKER) (test code = [facility], [facility]) 01279: Consumer Product Advisor/Techni bobby ID = [id number] for Ma rtinez Mcleod, Tanairy POCT-GLUCOSE [id number] 20:32:38 Test Item Value Reference Range Interpretation Comments POC-GLUCOSE METER 174 mg/dL 70-110 H : TESTED A T [facility] 6720 (BEAKER) (test code = [facility], [facility]) 78435: Consumer Product Advisor/Techni bobby ID = [id number] for Re yes, Sairy POCT-GLUCOSE [id number] 17:55:08 Test Item Value Reference Range Interpretation Comments POC-GLUCOSE METER 186 mg/dL 70-110 H : TESTED A T [facility] 6720 (BEAKER) (test code = [facility], [facility]) 96003: Consumer Product Advisor/Techni bobby ID = [id number] for Ma rtinez Mcleod, Tanairy POCT-GLUCOSE [id number] 12:48:05 Test Item Value Reference Range Interpretation Comments POC-GLUCOSE METER 158 mg/dL 70-110 H : TESTED A T [facility] 6720 (BEAKER) (test code = [facility], [facility]) 61330: Consumer Product Advisor/Techni bobby ID = [id number] for Ma rtinez Mcleod, Tanairy POCT-GLUCOSE [id number] 07:56:26 Test Item Value Reference Range Interpretation Comments POC-GLUCOSE METER 164 mg/dL 70-110 H : TESTED A T [facility] 6720 (BEAKER) (test code = [facility], 1538) 00956: Consumer Product Advisor/Techni bobby ID = [id number] for Thomas Mcdermottlauren Nilaytr BASIC METABOLIC [id number] 03:49:39 Test Item Value Reference Range Interpretation Comments SODIUM (BEAKER) 133 meq/L 136-145 L (test code = 381) POTASSIUM (BEAKER) 3.7 meq/L 3.5-5.1 (test code = 379) CHLORIDE (BEAKER) 98 meq/L 98-107 (test code = 382) CO2 (BEAKER) (test 28 meq/L 22-29 code = 355) BLOOD UREA NITROGEN 7 mg/dL 7-21 (BEAKER) (test code = 354) CREATININE (BEAKER) 0.66 mg/dL 0.57-1.25 (test code = 358) GLUCOSE RANDOM 160 mg/dL 70-105 H (BEAKER) (test code = 652) CALCIUM (BEAKER) 10.1 mg/dL 8.4-10.2 (test code = 697) EGFR (BEAKER) (test 122 mL/min/1.73 ESTIM ATED GFR IS code = 1092) sq m NOT ACCURATE CREATININE CLEARANCE IN PREDICTING GLOMERULAR FILTRATION RATE . ESTIMATED GFR I S NOT APPLICABLE FOR DIALYSIS PATIEN TS. Consumer Product Advisor ID - [id number] 03:49:39 Test Item Value Reference Range Interpretation Comments MAGNESIUM (BEAKER) (test code = 1.8 mg/dL 1.6-2.6 627) Consumer Product Advisor ID - DBPOCT-GLUCOSE [id number] 20:05:45 Test Item Value Reference Range Interpretation Comments POC-GLUCOSE METER 150 mg/dL 70-110 H : TESTED A T [facility] 6720 (BEAKER) (test code = [facility], 1538) 49040: Consumer Product Advisor/Techni bobby ID = [id number] for CRISTINA SHEIKH POCT-GLUCOSE [id number] 17:17:24 Test Item Value Reference Range Interpretation Comments POC-GLUCOSE METER 159 mg/dL 70-110 H : TESTED A T [facility] 6720 (BEAKER) (test code = [facility], 1538) 64489: Consumer Product Advisor/Techni bobby ID = [id number] for RYNE HN, WILLIAM POCT-GLUCOSE [id number] 11:37:13 Test Item Value Reference Range Interpretation Comments POC-GLUCOSE METER 185 mg/dL 70-110 H : TESTED A T [facility] 6720 (BEAKER) (test code = [facility], 1538) 80166: Consumer Product Advisor/Techni bobby ID = [id number] for RYNE GAO, WILLIAM POCT-GLUCOSE [id number] 07:27:43 Test Item Value Reference Range Interpretation Comments POC-GLUCOSE METER 160 mg/dL 70-110 H : TESTED A T [facility] 6720 (BEAKER) (test code = [facility], 1538) 32826: Consumer Product Advisor/Techni bobby ID = [id number] for RYNE HN, WILLIAM POCT-GLUCOSE [id number] 21:54:32 Test Item Value Reference Range Interpretation Comments POC-GLUCOSE METER 138 mg/dL 70-110 H : TESTED A T [facility] 6720 (BEAKER) (test code = [facility], 1538) 50252: Consumer Product Advisor/Techni bobby ID = [id number] for Co rtez, Parris POCT-GLUCOSE [id number] 17:25:24 Test Item Value Reference Range Interpretation Comments POC-GLUCOSE METER 164 mg/dL 70-110 H : TESTED A T [facility] 6720 (BEAKER) (test code = [facility], 1538) 34491: Consumer Product Advisor/Techni bobby ID = [id number] for RYNE GAO, WILLIAM POCT-GLUCOSE [id number] 12:06:06 Test Item Value Reference Range Interpretation Comments POC-GLUCOSE METER 209 mg/dL 70-110 H : TESTED A T [facility] 6720 (BEAKER) (test code = [facility], 1538) 17415: Consumer Product Advisor/Techni bobby ID = [id number] for RYNE HN, WILLIAM Tissue [id number] 10:32:55 Test Item Value Reference Range Interpretation Comments Case Report (test code Surgical Pathology = 104) Report Case: [id number] Authorizing Provider: Jorge Mays MD Collected: 02/01/2021 01:43 PM Ordering Location: [place] [address] ICU Received: 02/01/2021 02:55 PM Pathologist: Jacob Trujillo MD Specimen: Pleura, LEFT VISCERAL PLEURA ADDENDUM (test code = [id number] 3381) Sdq5lwo7RvxWOnhVLfBQno hXCpuhUlsa23dJB9qH38FT 6iVIKtQbB6BKKwquJ1Xor9 XAFbKAXnnHPsR774x7cak2 hcgrVapTA1jOhuLWFewyrj HmJ2EJgvNIGvjndlZLo9VL sqVRQajIH7JVXrzEDgH3Jc URVeEW4pwpt4HUP8XNjxMO VyGtN5CDEpjFMwJEOmnBki MJdwv827SNW7TqXqPLFffx EffYvpfI8kZrQpSKEPeECo jGDbCLX2GVjuwvTjx1VaEw NlS4GuXR5cE3CzrBFialGl I68FWOYDBKZwGWHstaXbzi 7pMMOucbDxeU1oodMEKTLe cmUgbmVnYXRpdmUuIENvcn DhqIM1eH5wXFegfEpwaOpr ad5jkS8ir4eyY8CzTRK5fD ZaZLClgCBarcYsp48jXM3p ZWQuIFxwYXJ9 DIAGNOSIS (test code = t0wjfTZmUVIbc9meCOAxfS 3220) FuZzEwMzNcZnRuYmpcdWMx IHtccnRmMVxlcGljOTYwMV gqsdCdHDFpqZGxN5Ukrhif QRvrSH6lSZ1etSncaABjmB PvGDGsYwDyc1ssz423jNYk l8qmZWBOzioumNd1xCtcO4 2rp9C6AzlkW91nxLBqEVN2 URWtTZTzbVUvIPFsJZJ3KX NzkZYtI9kqRSDiRN7tzdoa QHwbEBfeSYWqfYQ1IYAinE EjS7XmFYNyXKuzYEQyljf8 OtWjYu5kcSGtvTjgHZumIL LxMJUfFRenKKPcMzBpSD2g TEVGVCBWSVNDRVJBTCBQTE NZWkStHSDHO24GDZaQFUHW K552VUFzmsSHQKWBT8RRTk DQGDBSLoLOHFHYR3HMGM5s tTSkNOWGJEHVBCltQ2BWLZ 3JLEOYYlFPEL3RQJraK1EH PA0DO28NNEECGhKJDgugVI FEREVORFVNIFRPIEZPTExP Cf7jCLHscl37QPM4PgVkc6 A7WRJ7AFTcFXScn1xbKHNi bGFuZzEwMzNcZnRuYmpcdW MrLBJhJgCir8rht939yTUl r5cuJGFwAbQ2vYYsAWHclP NvW455GAZxZOdsg2dfd9Kb TSIzaZAib6V9UEYJtcortV o0uPbzN74ha4D2YdjuC0sx FILkLZGeH7MfZF4iDXTgVo o5BNO3QOB0KTZnGCMxB4Dq WX4gOFTkqSEwLJr7b8oquN kiEVFpOPS6d7jaKVjybyXq MN8ipi0ewUv7y6gcqwQtHJ UsWGOxuVXNNVKhE7SjbUdf Yd4baJf5pWysJmipAQW0Ck h5FY7zje42ctp1dMdbVSXw kwmpPfG8BRprLZHpozafRC h1BTmaPHPunKJ7CKOidISf M8JeQPCpGA4nktr3JML5MQ eyFZEdKxB3DDKhdEXkYZLw qXwuJWtlw754KEY0UfSqIS 0uY7Lbg8M6hK2apDRxDUGs eJTpQuKvOPPclr3cqRFjWK kxb1TgQFN8qyT5hTUtvYDb YAIqLsW4BTqoHS0nxi76DV UwMWA4eg3mnVLdcUmdfwYv tJZcUQmnO7CgAZZhu940ZM BzU8QtGCSwj8J1oyDlHnWq QXCylQD0hzT1VGZiOJ1euj ltx3jsOTmaTAdkUCIfobD5 hqT2BUVjyGXyQ5CgjB7zUP PmAU9jwcnux3sjBWQ1ZNdr CJWhHXQ3DpLpTDPjw6Mqcn v1PbBwf1JbjLReXVgjN09y s991SCHawyVjT9louBBytb upfUOmrodnWBkecrF1LBIm LHdwmwwaKGIdVTfeB1fhOx IzVBCbsVcfWGbzw0EiBZPa FHUvQhJhiAHzMQQtVla6RU EnnVQuVBBtYwPpY8ugqgfm PzIZRSGvz9rbJ4tuxZWLgB FkY3OvTVjwchAlXUpfSJfr LbCkSAGdEB30SNU5UQZsmn 19 CPT Code(s) (test code x2kadEIiNMMvuAA2OpCpME = 3357) Pok4atk5OlnGHjnOGbHLeh bMVpuqVpek61uUK6lK19LG 1kJVAsInV1LQPzloM8Acw7 SBDaPFTosMJyJ015g9doo6 ajgtNllUU6uCtiFOFbdhjf FxZ2CWrsKWUonuhdQLg6IH otULKgqWD4RSSkoQFhL7Cg FUGnZA8lxne3TRX9KMvcXQ HlRjL4NFPtdGTcUGAfoUyz UWjgw256QUH7UqXrKNHyuo YciLcnoO3rLdHwZPA8RCUw NCwgODgzMTJYMlxwYXJ9 CLINICAL HISTORY (test r9eggOUmAGUvgCK5RuNhPZ code = 3356) Wde3ktl3LrpMMfgYPfHAfz hNBaxmYaue96aLS3mM64HJ 9hBEWdMbX9HBMskjR8Dqa6 YXKqSUOprJHsC337l8cuw3 zppkEugIU1fSucJNVcatom NwL3WPkaZDVjlkomRVp9JJ bpJTCoiDL4EYSaySGpX3Uj ZKDtGO5ozns9HPQ6JRksCM KlSjU4TNDgrFKmIRMtwZij YBezt409ADX6SiXdSTNezp NhbTedrG1lXwAiXCLXoPH8 EV3tFFBqyt7= SPECIMEN SOURCE (test a4wfwLExJMOaaEY8PlZzAL code = 3377) Qtc1jqd9VlwBKvbPOfPOwu gATvdiFahu43eGG2uI31UR 8sTGRfDnN2DKOmjhT3Jvf3 ENRsQCVtzKWvU532h0fnk6 tfibGsyAC4rNjkCWGpnyqw FtH4BMfjJGCnxfftSSq6QB dsLNVrtZE2GOHslWPfH4Nj EDPzEJ8wjvy5MYM8VAjjLS XyYgO1ARFdpQOyPNPkpSyw DEmau980PQP4EnEeLLEkfl OzfClnpZ1gIzQrCWTIyBF4 yqZyQAQlUJR7GVEfu8Kxim FsXHBhcn0= GROSS DESCRIPTION (test k8ommGIiVFPnpXNbYnMkUG code = 3366) VdWQMsm7feBOKjwHQhBgKe MzNcZnRuYmpcdWMxXGRlZm Btq4umx818qLHch1xaYDCe XsS8qNPfFYCagGDmP915t8 yyy5qrppWwaFR2INWoHMC9 ZMiulmJuimG8VEjhiOKaYw C9ORislrAnPVaekqHmtkTc Act1DXKpO248BJA2aYfnw4 cwJTZ3PRFhVOOkXtQwYo6v vHBiB906IORyMOSWTWPaeP r7GPLdcaTmuwKgsMBDe557 X746m3chUNXrwbUweJjVow aub8prX750FUGxhXRpyyHv HxXdBRAflODoiZV6JTHyPA 0lklyzCuQdVV8xxhfrZxGf PE1wuix0JbOwXX6hfxjvCp ScVGsgPSCrxuorOJHpe7Vy tjdsMX3fJ3Mjc0I0fH2lvJ NdOXFdfLEjTpHwTTQhom1u yJBxQAbze0QhAMN4tbZ4jN PevJZlVKVkHR47Eehvg1Jm EyhvJKB6IRPbhhCtg5Iva0 lsTwIjbmHyQ1wwJ6JrBXJm BQUeIGGdKdNfikZaf5Bdp2 LtgZGwnVm1m4snHPRqHHFb gGvcd8rqCMU4BEHeR3G2pH Tht8ajOGtrORTgjOT6vfbr JYivOKPhooA7cohkVRoqFE VqbRG5cbslIQykGWEzVtH5 uziuVCshPXXcTAW5XYsnl3 41LBC1MOrsZdkeGZfnIBAr bmNvbnRccGduZGVjXHBsYW luXHBsYWluXGYwXGZzMjRc uDchzUsjaH1uAbAtApBhNC dfDD5nIWSxR7qusBFxGPKl HKAfT0ymSrZrvG5qvXvnHJ nyunBlIWAcBQVsN3JuaeWl IGZyZXNoIGxhYmVsZWQgd2 a8qHY2sZNtbYS0eEJjlAgz BbMfUK7pkMMnGN6yGNsbYP lvxbQgv6AhEG15tJOofwSz acVxPmjeAfIgxttaU6OmWJ wgcGxldXJhIiBpcyBhIDEu NKA7XSLzFYX0PMNdBAGenT U7YBnfn0csf3faiWLyurCw jg94gGXwd96weKU2vDZjsU UgdGhhdCBpcyBzZXJpYWxs rXQqFTL0pR5cZVJsFD4wYP DngEgxGSa1QFL3Pe4iuLWh CWQvjmBZGV1xbWZgYMVkwz EGcGYcq5UdEMoxTZBpHZDW MIUbJOUHAVoDR3DKKUUyYI Bhcn0= MICROSCOPIC DESCRIPTION g1lnhCJuILDjjRM6MaCwLA (test code = 3371) Svr1agp0NmxPJktZFiBCoz lWAexnSnbt60dXW5cV77GU 2yVCYhXgI3XPDqpeY9Cuq7 QHIsMLBgtOEaN958p2itb2 twzvAizTD8kQalGNJnwsik CaU2ZWheGDApvopbAXf9EE npJNGozBO3SHNtcCFeN3Qa HGUdTL6vgrr2HZT6FEwzUW MlOoM8AZDdoRQuHDTmxGvv KNbqe686EGI0RkIwZYSrvo GmxGbtjI8dPaMfHGOQRCQb q0RvVGXdAVKytkrmAYJzBR Bhcn0= SPECIAL STUDIES (test r6dpgGRfBQGntAN8IoNcKT code = 3376) Adm0tac7SncPYzfYUqWSoc hSQmqnKmqq84eMR2nF53LD 3kHDAcAdD3KBCjjhW0Mpj8 JDOvVYRczUIbH872DRXoJH PxnWzovum1rZ14AYImtQ2x dGJsIDtccmVkMFxncmVlbj NxKjh6WZB1wTetZXTrnoln ScR2CUdoHOGgqexwGGb8RQ mvNYElcDQ7PRTwvLSrY7Xc IOKkMT3vtlx8NIX3ABbbDX VhDtD3AFXgsRGeHTZhpSdg YGlvx703SIY2FuTuRUDawr MczBqciP4oYoSjPoGmTpzd ZjEgVGhlIGludGVycHJldG K6fG0nEE6tDOOasZGnC8Mn ARMnvrSndDGmZHB4dBBmtO KfIP8wVWobmFXsn5iex3Tl K4honAzwpKN9KF1bXRVpDD UmBVhbn7DlcM0hJpdiBWKi L5ZbCCRYX2BBMDYeBFLCAW MyFLXED0weLWYwkJSdCPze GqTuJ61bxAVrhDTCtMspEH EyUVhcvSfwWMO7JIGJos0x f9BhVFHanc28hnNzn9JitA a5WKCct353me6mewM6GPYl HNT1EMr3FQEsOWJulF6fHg V4oIFoTQSfXMU6IMJ4SNMi m6G7DF9tMOToIDRdCWSvrq Xqt2xzu2paNWGvINM3huWc qD5kF4HwJUEyo0WxrSxoGI BhdGllbnRzIHNhbXBsZSBz lF08QBZdhATzmSWvJUDrID D2GVuhdC1dNgOKorYzbj1j eWPpb3MrcBq8FRDflqZmnz JjHAWvhrQoK44tbDYzlZQo d7rquuTwfsNccZQxyAKoRF DxIZL2WGs8LLAcXSgjZBWu SWzoNUBxXN0rcT2toUpbbI 3iqXGqpYD4nuigtWFqeC2k H8QdQSVkc4Tbzyibp7YjMH GmvlMghu9tEWCvhXNRKCht h5ChP6FsVNt1d7GssVvxIP iePIy8LwJcZPTftXJdnYQJ UB90DFCfIBTqjGflfQ0cfU WDEWMkbqL4f6Q9JEjvFEFj NEw6MFimzzKsKFAiaZ3mXS ChLM6oSEe4unXxGRVll9Bf PB6lEWMhtYFuPTJ0WGYay2 NoI1Qiy3TtCWZrQBWhjw0j mkQnXdCJvSZmZOMaxt27JV XpSU6nP5kgLBUeFGFwuiHw sMWkk3BmBGZvvAF2lMMsBX 1TScJHn57sVOXwUKJXcxQl MLSrsPukvJJ8hqL0lO0dHu BUaGUgRkRBIGhhcyBkZXRl cz1khpZfPMBuRVVmd9RdtX IktBZlucFtE7Kyo3YrQCSr ii55NKztoMKeqh55ZR9zR5 Tjv0QntC5tQXiiLVAtx9Ep wSMvhZGgXRMww5QpY4hvgb zqYBsjvWPilE3qMQIsKOb7 ATAsr8CeHAPyf2ZrCdButr TcXHDlKUAlCDXauF30YZO6 dBnnbYmmwkPxJT8hNDDiry LuICTlOEVtzN3sJXgggeVe CFTqefG0k2Y7AZlhHQCmua YgJvxbDGN8irOxkwL4xBEi G7lwcrtpFLxxNDRoy3WywR 4rjWHAbKFqg0DyoCCibIAR nFYzWO4wvkUqXW2xUIG5IH ggKENMSUEtODgpIGFzIHF1 BWnxZwnvOMH9jsTiLZCva5 JuNDniJ2quC36ljKqfoYs3 eSBjbGluaWNhbCBsYWJvcm H1i1L4TLSmw8SsbeqcLSPd cn0= Gross assessment was [facility] performed at ([facility], = 2777) Department of Pathology, [address] [place] [id number], Technical component was [facility] performed at ([facility], = 2778) Department of Pathology, [address] [place] [address], Professional component [facility] was performed at ([facility], code = 2779) Department of Pathology, [address] [place] [address], [facility] [id number] 10:32:55Surgical Pathology Report Case: [id number] Authorizing Provider: Jorge Mays MD Collected: 02/01/2021 01:43 PM Ordering Location: [place] [address] ICU Received: 02/01/2021 02:55 PM Pathologist:Jacob Trujillo MD Specimen: Pleura, LEFT VISCERAL PLEURA Special stains for fungal organisms (GMS, PAS) performed on block A1 are negative. Correlation with microbiological studies is recommended. Addendum electronically signed by Jacob Trujillo MD on 02/16/2021 at 10:32 AMA. LEFT VISCERAL PLEURA, DECORTICATION:NECROTIC PLEURAL TISSUE.SPECIAL STAINS FOR FUNGAL ORGANISMS PENDING, ADDENDUM TO FOLLOW. Signing Pathologist Direct Phone Line: [phone] signed by Jacob Trujillo MD on 02/15/2021 at 10:05 [id number], [id number], left visceralA. Received fresh labeled with the patient's name, medical record number and "left visceral pleura" is a 1.8 x 0.8 x 0.5 cm yellow-white necrotic soft tissue that is serially sectioned and entirely submitted in A1.WADE Dudley PA (ASCP)cmPerformed.The interpretation of this case included the use of immunohistochemistry or special stains.BLOCK A1- GMS, PASControl Slides Examined: In-house known positive controls were evaluated along with the test tissue. These control slides run alongside of the patients sample show appropriate staining. Internal positive and negative controls when available are evaluated Immunohistochemistry technical testing was performed at [facility], Pathology Laboratory where it was developed and its performance characteristics were determined. It has not been cleared or approved by the U.S. Food and Drug Administration. The FDA has determined that such clearance or approval is not necessary. The test is used for clinical purposes. It should not be regarded as investigational or for research. This laboratory is certified under the Clinical Laboratory ImprovementAmendments of 1988 (CLIA-88) as qualified to perform high complexity clinical laboratory testing.[facility], Department of Pathology, [address] [place] [address], [facility], [address] [place] [address], [facility], [facility] of [facility], [address] [place] [address], VAIV-GLUCOSE [id number] 08:01:15 Test Item Value Reference Range Interpretation Comments POC-GLUCOSE METER 135 mg/dL 70-110 H : TESTED A T [facility] 6720 (BEAKER) (test code = [facility], 1538) [address]: Consumer Product Advisor/Techni bobby ID = [id number] for WILLIAM SOL BASIC METABOLIC [id number] 05:50:34 Test Item Value Reference Range Interpretation Comments SODIUM (BEAKER) 134 meq/L 136-145 L (test code = 381) POTASSIUM (BEAKER) 4.1 meq/L 3.5-5.1 (test code = 379) CHLORIDE (BEAKER) 100 meq/L 98-107 (test code = 382) CO2 (BEAKER) (test 29 meq/L 22-29 code = 355) BLOOD UREA NITROGEN 5 mg/dL 7-21 L (BEAKER) (test code = 354) CREATININE (BEAKER) 0.64 mg/dL 0.57-1.25 (test code = 358) GLUCOSE RANDOM 136 mg/dL 70-105 H (BEAKER) (test code = 652) CALCIUM (BEAKER) 10.1 mg/dL 8.4-10.2 (test code = 697) EGFR (BEAKER) (test 126 mL/min/1.73 ESTIM ATED GFR IS code = 1092) sq m NOT ACCURATE CREATININE CLEARANCE IN PREDICTING GLOMERULAR FILTRATION RATE . ESTIMATED GFR I S NOT APPLICABLE FOR DIALYSIS PATIEN TS. Consumer Product Advisor ID - CRISTOFER [id number] 05:50:34 Test Item Value Reference Range Interpretation Comments MAGNESIUM (BEAKER) (test code = 1.8 mg/dL 1.6-2.6 627) Consumer Product Advisor ID - CRISTOFER MSARS-COV2/RT-PCR ([facility])2021-02-16 01:01:04 Test Item Value Reference Range Interpretation Comments SARS-COV2/RT-PCR Negative Negative The SARS-Co V-2 target (test code = nucleic acids a re not [id number]) detected in thi s specimen. Negative result s do not preclude SARS-C oV-2 infection and s hould not be used as the soheila e basis for patient managem ent decisions. Nega tive results must be combine d with clinical observ ations, patient history , and epidemiological information. A false negativ e result may occur if a spec imen is improperly kelin ected, transported or handled. This SARS CoV-2 test is a rapid, real-time RT-PC R test intended for th e qualitative detection of nu cleic acid from SARS-CoV-2 in a nasopharyngeal swab specimen collected from individuals suspected of CO VID-19 by their healthcar e provider. This test has been authorized by FDA under an EUA for use by authorized laboratories. This test is only authorized for the duration of the declaration that circumstances exist justifying the authorization of emergency use of in vitro diagnostic tests for detection and/or diagnosis of COVID-19 under Section 564(b)(1) of the Federal Food, Drug and Cosmetic Act, 21 U.S.C. 360bbb-3(b)(1), unless the authorization is terminated or revoked sooner. Fact Sheet for Healthcare Providers: https://www.[employer] m/Documents/Xpert%20Xpress%20SARS%20CoV-2/Fact%20Sheets/3023802%14IPJZ-ZYJ-6%20 HEALTHCARE%20PROVIDERS%20FACT%20SHEET.pdf Fact Sheet for Healthcare Patients: https://www.[facility]/Documents/Xpert%20Xp ress%20SARS%20CoV-2/Fact%20Sheets/3023801%63BASA-SYZ-8%20PATIENT%20FACT%20SHEET .pdfPOCT-GLUCOSE [id number] 21:08:07 Test Item Value Reference Range Interpretation Comments POC-GLUCOSE METER 145 mg/dL 70-110 H : TESTED A T [facility] 6720 (BREANNA) (test code = [facility] [place], 1538) 12807: Consumer Product Advisor/Techni bobby ID = [id number] for Co rtez, [place] POCT-GLUCOSE [id number] 17:19:16 Test Item Value Reference Range Interpretation Comments POC-GLUCOSE METER 123 mg/dL 70-110 H : TESTED A T [facility] 6720 (BEAKER) (test code = [facility], 1538) 46862: Consumer Product Advisor/Techni bobby ID = [id number] for Ai Carpenter POCT-GLUCOSE [id number] 12:22:04 Test Item Value Reference Range Interpretation Comments POC-GLUCOSE METER 167 mg/dL 70-110 H : TESTED A T [facility] 6720 (BEAKER) (test code = [facility], 1538) 31006: Consumer Product Advisor/Techni bobby ID = [id number] for Sallie Carpentera POCT-GLUCOSE [id number] 07:36:25 Test Item Value Reference Range Interpretation Comments POC-GLUCOSE METER 141 mg/dL 70-110 H : TESTED A T [facility] 6720 (BEAKER) (test code = [facility], 1538) 15913: Consumer Product Advisor/Techni bobby ID = [id number] for Ba rreraSalliea BASIC METABOLIC [id number] 04:08:49 Test Item Value Reference Range Interpretation Comments SODIUM (BEAKER) 137 meq/L 136-145 (test code = 381) POTASSIUM (BEAKER) 3.4 meq/L 3.5-5.1 L (test code = 379) CHLORIDE (BEAKER) 99 meq/L 98-107 (test code = 382) CO2 (BEAKER) (test 33 meq/L 22-29 H code = 355) BLOOD UREA NITROGEN 6 mg/dL 7-21 L (BEAKER) (test code = 354) CREATININE (BEAKER) 0.63 mg/dL 0.57-1.25 (test code = 358) GLUCOSE RANDOM 120 mg/dL 70-105 H (BEAKER) (test code = 652) CALCIUM (BEAKER) 9.9 mg/dL 8.4-10.2 (test code = 697) EGFR (BEAKER) (test 129 mL/min/1.73 ESTIM ATED GFR IS code = 1092) sq m NOT ACCURATE CREATININE CLEARANCE IN PREDICTING GLOMERULAR FILTRATION RATE . ESTIMATED GFR I S NOT APPLICABLE FOR DIALYSIS PATIEN TS. Consumer Product Advisor ID - LIZET [id number] 04:08:49 Test Item Value Reference Range Interpretation Comments MAGNESIUM (BEAKER) (test code = 1.7 mg/dL 1.6-2.6 627) Consumer Product Advisor ID - LIZET WPOCT-GLUCOSE [id number] 20:45:39 Test Item Value Reference Range Interpretation Comments POC-GLUCOSE METER 141 mg/dL 70-110 H : TESTED A T [facility] 6720 (BEAKER) (test code = [facility], 1538) 47392: Consumer Product Advisor/Techni bobby ID = [id number] for PI CRISTINA VINCENT POCT-GLUCOSE [id number] 17:21:22 Test Item Value Reference Range Interpretation Comments POC-GLUCOSE METER 202 mg/dL 70-110 H : TESTED A T [facility] 6720 (BEAKER) (test code = [facility], 1538) 21802: Consumer Product Advisor/Techni bobby ID = [id number] for OR PHEY, MYNOR POCT-GLUCOSE [id number] 11:53:53 Test Item Value Reference Range Interpretation Comments POC-GLUCOSE METER 173 mg/dL 70-110 H : TESTED A T [facility] 6720 (BEAKER) (test code = [facility], 1538) 11581: Consumer Product Advisor/Techni bobby ID = [id number] for OR PHEY, MYNOR POCT-GLUCOSE [id number] 07:52:01 Test Item Value Reference Range Interpretation Comments POC-GLUCOSE METER 121 mg/dL 70-110 H : TESTED A T [facility] 6720 (BEAKER) (test code = [facility], 1538) 80160: Consumer Product Advisor/Techni bobby ID = [id number] for Michael CEOLHO BASIC METABOLIC [id number] 05:44:06 Test Item Value Reference Range Interpretation Comments SODIUM (BEAKER) 136 meq/L 136-145 (test code = 381) POTASSIUM (BEAKER) 3.2 meq/L 3.5-5.1 L (test code = 379) CHLORIDE (BEAKER) 95 meq/L 98-107 L (test code = 382) CO2 (BEAKER) (test 35 meq/L 22-29 H code = 355) BLOOD UREA NITROGEN 8 mg/dL 7-21 (BEAKER) (test code = 354) CREATININE (BEAKER) 0.67 mg/dL 0.57-1.25 (test code = 358) GLUCOSE RANDOM 109 mg/dL 70-105 H (BEAKER) (test code = 652) CALCIUM (BEAKER) 9.9 mg/dL 8.4-10.2 (test code = 697) EGFR (BEAKER) (test 120 mL/min/1.73 ESTIM ATED GFR IS code = 1092) sq m NOT ACCURATE CREATININE CLEARANCE IN PREDICTING GLOMERULAR FILTRATION RATE . ESTIMATED GFR I S NOT APPLICABLE FOR DIALYSIS PATIEN TS. Consumer Product Advisor ID - REANNA [id number] 05:44:06 Test Item Value Reference Range Interpretation Comments MAGNESIUM (BEAKER) (test code = 1.8 mg/dL 1.6-2.6 627) Consumer Product Advisor ID - REANNA LPOCT-GLUCOSE [id number] 21:27:05 Test Item Value Reference Range Interpretation Comments POC-GLUCOSE METER 168 mg/dL 70-110 H : TESTED A T [facility] 6720 ([facility]) (test code = [facility], [facility]) 44474: Consumer Product Advisor/Techni bobby ID = [id number] for [place], [place] POCT-GLUCOSE [id number] 19:09:56 Test Item Value Reference Range Interpretation Comments POC-GLUCOSE METER 189 mg/dL 70-110 H : TESTED A T [facility] 6720 (BEAKER) (test code = [facility], 1538) 26353: Consumer Product Advisor/Techni bobby ID = [id number] for OR PHEY, MYNOR POCT-GLUCOSE [id number] 12:46:35 Test Item Value Reference Range Interpretation Comments POC-GLUCOSE METER 178 mg/dL 70-110 H : TESTED A T [facility] 6720 (BEAKER) (test code = [facility], 1538) 31941: Consumer Product Advisor/Techni bobby ID = [id number] for OR PHEY, MYNOR POCT-GLUCOSE [id number] 07:56:06 Test Item Value Reference Range Interpretation Comments POC-GLUCOSE METER 148 mg/dL 70-110 H : TESTED A T [facility] 6720 (BEAKER) (test code = [facility], 1538) 80967: Consumer Product Advisor/Techni bobby ID = [id number] for OR PHEY, MYNOR B-TYPE NATRIURETIC FACTOR (BNP)2021-02-13 04:18:48 Test Item Value Reference Range Interpretation Comments B-TYPE NATRIURETIC PEPTIDE (BEAKER) 75 pg/mL 0-100 (test code = 700) Consumer Product Advisor ID - CRISTOFER [id number] 04:16:09 Test Item Value Reference Range Interpretation Comments MAGNESIUM (BEAKER) (test code = 1.8 mg/dL 1.6-2.6 627) Consumer Product Advisor ID - CRISTOFER MPOCT-GLUCOSE [id number] 23:41:35 Test Item Value Reference Range Interpretation Comments POC-GLUCOSE METER 204 mg/dL 70-110 H : TESTED A T [facility] 6720 (BEAKER) (test code = [employer] [place], 1538) 74663: Consumer Product Advisor/Techni bobby ID = [id number] for Veda Farr se BASIC METABOLIC [id number] 17:45:48 Test Item Value Reference Range Interpretation Comments SODIUM (BEAKER) 135 meq/L 136-145 L (test code = 381) POTASSIUM (BEAKER) 3.6 meq/L 3.5-5.1 (test code = 379) CHLORIDE (BEAKER) 93 meq/L 98-107 L (test code = 382) CO2 (BEAKER) (test 39 meq/L 22-29 H code = 355) BLOOD UREA NITROGEN 8 mg/dL 7-21 (BEAKER) (test code = 354) CREATININE (BEAKER) 0.67 mg/dL 0.57-1.25 (test code = 358) GLUCOSE RANDOM 192 mg/dL 70-105 H (BEAKER) (test code = 652) CALCIUM (BEAKER) 9.6 mg/dL 8.4-10.2 (test code = 697) EGFR (BEAKER) (test 120 mL/min/1.73 ESTIM ATED GFR IS code = 1092) sq m NOT ACCURATE CREATININE CLEARANCE IN PREDICTING GLOMERULAR FILTRATION RATE . ESTIMATED GFR I S NOT APPLICABLE FOR DIALYSIS PATIEN TS. Consumer Product Advisor ID - ADMINPOCT-GLUCOSE [id number] 17:34:52 Test Item Value Reference Range Interpretation Comments POC-GLUCOSE METER 222 mg/dL 70-110 H : TESTED A T [facility] 6720 (BEAKER) (test code = [employer] [place], 1538) 53819: Consumer Product Advisor/Techni bobby ID = [id number] for Ai Carpenter POCT-GLUCOSE [id number] 12:18:19 Test Item Value Reference Range Interpretation Comments POC-GLUCOSE METER 219 mg/dL 70-110 H : TESTED A T [facility] 6720 (BEAKER) (test code = [facility], 1538) 28087: Consumer Product Advisor/Techni bobby ID = [id number] for Ai Carpenter POCT-GLUCOSE [id number] 07:50:12 Test Item Value Reference Range Interpretation Comments POC-GLUCOSE METER 137 mg/dL 70-110 H : TESTED A T [facility] 6720 (BEAKER) (test code = [facility], 1538) 75895: Consumer Product Advisor/Techni bobby ID = [id number] for Ai Carpenter BASIC METABOLIC [id number] 03:56:33 Test Item Value Reference Range Interpretation Comments SODIUM (BEAKER) 138 meq/L 136-145 (test code = 381) POTASSIUM (BEAKER) 2.8 meq/L 3.5-5.1 L (test code = 379) CHLORIDE (BEAKER) 94 meq/L 98-107 L (test code = 382) CO2 (BEAKER) (test 39 meq/L 22-29 H code = 355) BLOOD UREA NITROGEN 7 mg/dL 7-21 (BEAKER) (test code = 354) CREATININE (BEAKER) 0.66 mg/dL 0.57-1.25 (test code = 358) GLUCOSE RANDOM 132 mg/dL 70-105 H (BEAKER) (test code = 652) CALCIUM (BEAKER) 9.7 mg/dL 8.4-10.2 (test code = 697) EGFR (BEAKER) (test 122 mL/min/1.73 ESTIM ATED GFR IS code = 1092) sq m NOT ACCURATE CREATININE CLEARANCE IN PREDICTING GLOMERULAR FILTRATION RATE . ESTIMATED GFR I S NOT APPLICABLE FOR DIALYSIS PATIEN TS. Consumer Product Advisor ID - CRISTOFER [id number] 03:56:33 Test Item Value Reference Range Interpretation Comments MAGNESIUM (BEAKER) (test code = 1.8 mg/dL 1.6-2.6 627) Consumer Product Advisor ID - CRISTOFER MPOCT-GLUCOSE [id number] 20:51:53 Test Item Value Reference Range Interpretation Comments POC-GLUCOSE METER 144 mg/dL 70-110 H : TESTED A T [facility] 6720 (BEAKER) (test code = [facility], 1538) 19566: Consumer Product Advisor/Techni bobby ID = [id number] for Re Luna hagen POCT-GLUCOSE [id number] 17:33:30 Test Item Value Reference Range Interpretation Comments POC-GLUCOSE METER 201 mg/dL 70-110 H : TESTED A T [facility] 6720 (BEAKER) (test code = [facility], 1538) 99183: Consumer Product Advisor/Techni bobby ID = [id number] for Ba rrera, Ai POCT-GLUCOSE [id number] 12:44:50 Test Item Value Reference Range Interpretation Comments POC-GLUCOSE METER 191 mg/dL 70-110 H : TESTED A T [facility] 6720 (BEAKER) (test code = [facility], 1538) 51987: Consumer Product Advisor/Techni bobby ID = [id number] for Ba rrera, Ai POCT-GLUCOSE [id number] 08:02:05 Test Item Value Reference Range Interpretation Comments POC-GLUCOSE METER 138 mg/dL 70-110 H : TESTED A T [facility] 6720 (BEAKER) (test code = [facility], 1538) 64161: Consumer Product Advisor/Techni bobby ID = [id number] for Ba rrera, Ai [id number] 08:01:45 Test Item Value Reference Range Interpretation Comments MAGNESIUM (BEAKER) (test code = 1.5 mg/dL 1.6-2.6 L 627) Consumer Product Advisor ID - PIAYA LCBC with platelet count + automated [id number] 07:37:57 Test Item Value Reference Range Interpretation Comments WBC (test code = 6690-2) 9.3 See_Comment [A utomated message] The system [employer] generated this result transmitted ref erence range: 3.5 - 10 .5 K/L. The refe rence range was not u sed to interpret this result as normal/abnor mal. RBC (test code = 789-8) 2.45 See_Comment L [Au tomated message] The system [employer] generated this result transmitted ref erence range: 4.63 - 6 .08 M/L. The refe rence range was not u sed to interpret this result as normal/abnor mal. MCHC (test code = 786-4) 31.8 See_Comment L [A utomated message] The system [employer] generated this result transmitted ref erence range: 32.3 - 3 6.5 GM/DL. The refe rence range was not u sed to interpret this result as normal/abnor mal. Hematocrit (test code = 23.3 % 40.1-51.0 L 4544-3) MCV (test code = 787-2) 95.1 fL 79.0-92.2 H MCH (test code = 785-6) 30.2 pg 25.7-32.2 RDW (test code = 788-0) 14.6 % 11.6-14.4 H Platelets (test code = 378 See_Comment [Aut omated message] 777-3) The system [employer] generated this result transmitted ref erence range: 150 - 45 0 K/CU MM. The referen ce range was not u sed to interpret this result as normal/abnor mal. MPV (test code = 10.7 fL 9.4-12.4 01391-5) nRBC (test code = 413) 0 See_Comment [Aut omated message] The system [employer] generated this result transmitted ref erence range: 0 - 0 /1 00 WBC. The refere nce range was not u sed to interpret this result as normal/abnor mal. % Neutros (test code = 68 % 429) % Lymphs (test code = 21 % 430) % Monos (test code = 8 % 431) % Eos (test code = 432) 2 % % Baso (test code = 437) 1 % # Neutros (test code = 6.28 See_Comment H [Aut omated message] 670) The system [employer] generated this result transmitted ref erence range: 1.78 - 5 .38 K/L. The refe rence range was not u sed to interpret this result as normal/abnor mal. # Lymphs (test code = 1.91 See_Comment [Auto mated message] 414) The system [employer] generated this result transmitted ref erence range: 1.32 - 3 .57 K/L. The refe rence range was not u sed to interpret this result as normal/abnor mal. # Monos (test code = 0.75 See_Comment [Autom ated message] 415) The system [employer] generated this result transmitted ref erence range: 0.30 - 0 .82 K/L. The refe rence range was not u sed to interpret this result as normal/abnor mal. # Eos (test code = 416) 0.22 See_Comment [Au tomated message] The system [employer] generated this result transmitted ref erence range: 0.04 - 0 .54 K/L. The refe rence range was not u sed to interpret this result as normal/abnor mal. # Baso (test code = 417) 0.05 See_Comment [A utomated message] The system [employer] generated this result transmitted ref erence range: 0.01 - 0 .08 K/L. The refe rence range was not u sed to interpret this result as normal/abnor mal. Immature 1 % 0-1 Granulocytes-Relative (test code = 2801) Lab Interpretation (test Abnormal code = 94520-4) [facility] W/PLT COUNT & AUTO [id number] 07:37:57 Test Item Value Reference Range Interpretation Comments WHITE BLOOD CELL COUNT (BEAKER) 9.3 K/ L 3.5-10.5 (test code = 775) RED BLOOD CELL COUNT (BEAKER) 2.45 M/ L 4.63-6.08 L (test code = 761) HEMOGLOBIN (BEAKER) (test code = 7.4 GM/DL 13.7-17.5 L 410) HEMATOCRIT (BEAKER) (test code = 23.3 % 40.1-51.0 L 411) MEAN CORPUSCULAR VOLUME (BEAKER) 95.1 fL 79.0-92.2 H (test code = 753) MEAN CORPUSCULAR HEMOGLOBIN 30.2 pg 25.7-32.2 (BEAKER) (test code = 751) MEAN CORPUSCULAR HEMOGLOBIN CONC 31.8 GM/DL 32.3-36.5 L (BEAKER) (test code = 752) RED CELL DISTRIBUTION WIDTH 14.6 % 11.6-14.4 H (BEAKER) (test code = 412) PLATELET COUNT (BEAKER) (test 378 K/CU MM 150-450 code = 756) MEAN PLATELET VOLUME (BEAKER) 10.7 fL 9.4-12.4 (test code = 754) NUCLEATED RED BLOOD CELLS 0 /100 WBC 0-0 (BEAKER) (test code = 413) NEUTROPHILS RELATIVE PERCENT 68 % (BEAKER) (test code = 429) LYMPHOCYTES RELATIVE PERCENT 21 % (BEAKER) (test code = 430) MONOCYTES RELATIVE PERCENT 8 % (BEAKER) (test code = 431) EOSINOPHILS RELATIVE PERCENT 2 % (BEAKER) (test code = 432) BASOPHILS RELATIVE PERCENT 1 % (BEAKER) (test code = 437) NEUTROPHILS ABSOLUTE COUNT 6.28 K/ L 1.78-5.38 H (BEAKER) (test code = 670) LYMPHOCYTES ABSOLUTE COUNT 1.91 K/ L 1.32-3.57 (BEAKER) (test code = 414) MONOCYTES ABSOLUTE COUNT (BEAKER) 0.75 K/ L 0.30-0.82 (test code = 415) EOSINOPHILS ABSOLUTE COUNT 0.22 K/ L 0.04-0.54 (BEAKER) (test code = 416) BASOPHILS ABSOLUTE COUNT (BEAKER) 0.05 K/ L 0.01-0.08 (test code = 417) IMMATURE GRANULOCYTES-RELATIVE 1 % 0-1 PERCENT (BEAKER) (test code = 2801) POCT-GLUCOSE [id number] 20:28:51 Test Item Value Reference Range Interpretation Comments POC-GLUCOSE METER 148 mg/dL 70-110 H : TESTED A T [facility] 6720 (BEAKER) (test code = [facility] [place], 1538) 91530: Consumer Product Advisor/Techni bobby ID = [id number] for Co ez, [place] BASIC METABOLIC [id number] 18:02:37 Test Item Value Reference Range Interpretation Comments SODIUM (BEAKER) 141 meq/L 136-145 (test code = 381) POTASSIUM (BEAKER) 3.2 meq/L 3.5-5.1 L (test code = 379) CHLORIDE (BEAKER) 98 meq/L 98-107 (test code = 382) CO2 (BEAKER) (test 38 meq/L 22-29 H code = 355) BLOOD UREA NITROGEN 8 mg/dL 7-21 (BEAKER) (test code = 354) CREATININE (BEAKER) 0.72 mg/dL 0.57-1.25 (test code = 358) GLUCOSE RANDOM 117 mg/dL 70-105 H (BEAKER) (test code = 652) CALCIUM (BEAKER) 9.6 mg/dL 8.4-10.2 (test code = 697) EGFR (BEAKER) (test 110 mL/min/1.73 ESTIM ATED GFR IS code = 1092) sq m NOT ACCURATE CREATININE CLEARANCE IN PREDICTING GLOMERULAR FILTRATION RATE . ESTIMATED GFR I S NOT APPLICABLE FOR DIALYSIS PATIEN TS. Consumer Product Advisor ID - CRISTOFER MRAD, CHEST, 1 VIEW, NON [id number] 17:07:00Reason for exam:->post pull chest tubesShould this be performed at the bedside?->Yes [facility] S[facility]ULDING : 1960 Sex: MFINAL REPORT TECHNIQUE: One view of the chest. INDICATION: 61-year-old man status post chest tube removal. COMPARISON: Chest radiograph from seven hours prior. FINDINGS: LINES/TUBES/DEVICES: Interval removal of the left chest tubes. LUNGS/PLEURA: No significant change in left airspace and pleural opacities. No significant pneumothorax. HEART AND MEDIASTINUM: Cardiomediastinal silhouette is unchanged. BONES AND SOFT TISSUES: Unremarkable. IMPRESSION:Interval removal of the left chest tubes.Otherwise, no significant change since chest radiograph from seven hours prior. Signed: Estephania Victoria Verified Date/Time: 02/10/2021 17:07:21 Reading Location: [address] Body Reading Room POCT-GLUCOSE [id number] 17:02:34 Test Item Value Reference Range Interpretation Comments POC-GLUCOSE METER 135 mg/dL 70-110 H : TESTED A T [facility] 6720 (BEAKER) (test code = [facility], 1538) 94745: Consumer Product Advisor/Techni bobby ID = [id number] for OR PHEY MYNOR POCT-GLUCOSE [id number] 12:09:09 Test Item Value Reference Range Interpretation Comments POC-GLUCOSE METER 118 mg/dL 70-110 H : TESTED A T [facility] 6720 (BEAKER) (test code = [facility], 1538) 50304: Consumer Product Advisor/Techni bobby ID = [id number] for OR PHEY, MYNOR [id number] 09:05:09 Test Item Value Reference Range Interpretation Comments MAGNESIUM (BEAKER) (test code = 1.6 mg/dL 1.6-2.6 627) Consumer Product Advisor ID - CRISTOFER MComprehensive metabolic [id number] 09:05:08 Test Item Value Reference Range Interpretation Comments Protein, Total (test 6.2 See_Comment [Autom ated code = 2885-2) message] The system which generated this result transmit tuyet reference range : 6.0 - 8.3 gm/dL . The reference range was not u sed to interpret th is result as normal/abnormal . Albumin (test code = 2.5 g/dL 3.5-5.0 L 92435-2) Alkaline Phosphatase 47 U/L 40-150 (test code = 6768-6) Total Bilirubin (test 0.4 mg/dL 0.2-1.2 code = 1975-2) Sodium (test code = 141 meq/L 237-576 5308-2) Potassium (test code 3.1 meq/L 3.5-5.1 L = 2823-3) Chloride (test code = 100 meq/L 98-107 5-0) CO2 (test code = 35 meq/L 22-29 H 2027-) BUN (test code = 8 mg/dL 7-21 3094-0) Creatinine (test code 0.69 mg/dL 0.57-1.25 = 2160-0) Glucose (test code = 173 mg/dL 70-105 H 2345-7) Calcium (test code = 9.4 mg/dL 8.4-10.2 25874-3) AST (test code = 46 U/L 5-34 H 1920-8) ALT (test code = 33 U/L 6-55 1742-6) EGFR (test code = 116 mL/min/1.73 [place] [address]-2) NOT ACCURATE CREATININE CLEARANCE IN PREDICTING GLOMERULAR FILTRATION RATE . ESTIMATED GFR I S NOT APPLICABLE FOR DIALYSIS PATIEN TS. HENDRICKS (test code = RUTHIE) Consumer Product Advisor ID - CRISTOFER Vázquez Lab Interpretation Abnormal (test code = 90053-0) [facility] [id number] 09:05:08 Test Item Value Reference Range Interpretation Comments TOTAL PROTEIN 6.2 gm/dL 6.0-8.3 (BEAKER) (test code = 770) ALBUMIN (BEAKER) 2.5 g/dL 3.5-5.0 L (test code = 1145) ALKALINE PHOSPHATASE 47 U/L 40-150 (BEAKER) (test code = 346) BILIRUBIN TOTAL 0.4 mg/dL 0.2-1.2 (BEAKER) (test code = 377) SODIUM (BEAKER) (test 141 meq/L 136-145 code = 381) POTASSIUM (BEAKER) 3.1 meq/L 3.5-5.1 L (test code = 379) CHLORIDE (BEAKER) 100 meq/L 98-107 (test code = 382) CO2 (BEAKER) (test 35 meq/L 22-29 H code = 355) BLOOD UREA NITROGEN 8 mg/dL 7-21 (BEAKER) (test code = 354) CREATININE (BEAKER) 0.69 mg/dL 0.57-1.25 (test code = 358) GLUCOSE RANDOM 173 mg/dL 70-105 H (BEAKER) (test code = 652) CALCIUM (BEAKER) 9.4 mg/dL 8.4-10.2 (test code = 697) AST (SGOT) (BEAKER) 46 U/L 5-34 H (test code = 353) ALT (SGPT) (BEAKER) 33 U/L 6-55 (test code = 347) EGFR (BEAKER) (test 116 ESTIMATE D GFR IS code = 1092) mL/min/1.73 sq NOT ACCURA TE m CREATININE CLEARANCE IN PREDICTING GLOMERULAR FILTRATION RATE . ESTIMATED GFR I S NOT APPLICABLE FOR DIALYSIS PATIEN TS. Consumer Product Advisor ID - CRISTOFER CRUZ, CHEST, 1 VIEW, NON [id number] 07:39:00Reason for exam:->post opShould this be performed at the bedside?->Yes [facility] VASU SPAULDING : 1960 Sex: MFINAL REPORT EXAM/TECHNIQUE: Single view frontal radiograph of the chest. INDICATION: Postoperative. COMPARISON: 02/09/2021 FINDINGS: Devices/Objects: Stable. Lungs: Similar left pleural effusion. No visible pneumothorax. Heart/Mediastinum: Similar cardiomegaly and interstitial thickening. Osseous: No acute osseous process. No suspicious osseous lesion. Upper abdomen: Unremarkable. Impression: No new cardiopulmonary process. Signed: Mario Stubbs MDReport Verified Date/Time: 02/10/2021 07:39:46 POCT-GLUCOSE [id number] 07:33:20 Test Item Value Reference Range Interpretation Comments POC-GLUCOSE METER 161 mg/dL 70-110 H : TESTED A [facility]20 ([employer]) (test code = [place], 1538) [address]: Consumer Product Advisor/Techni bobby ID = [id number] for OR FELIPETr MYNOR POCT-GLUCOSE [id number] 02:16:05 Test Item Value Reference Range Interpretation Comments POC-GLUCOSE METER 77 mg/dL 70-110 : TESTED A T [facility] 6720 ([employer]) (test code = [facility], 1538) [address]: Consumer Product Advisor/Techni bobby ID = [id number] for VICKY RUSSELL POCT-GLUCOSE [id number] 01:53:35 Test Item Value Reference Range Interpretation Comments POC-GLUCOSE METER 57 mg/dL 70-110 L : TESTED A T [facility] 6720 (BEAKER) (test code = [facility], 1538) [address]: Consumer Product Advisor/Techni bobby ID = [id number] for JANESSA RUSSELLO POCT-GLUCOSE [id number] 20:43:37 Test Item Value Reference Range Interpretation Comments POC-GLUCOSE METER 103 mg/dL 70-110 : TESTED A T [facility] 6720 (BEAKER) ([facility] = [facility] [facility], 1538) [id number]: Consumer Product Advisor/Techni bobby ID = [id number] for VICKY ANDERSEN BASIC METABOLIC [id number] 18:23:02 Test Item Value Reference Range Interpretation Comments SODIUM (BEAKER) 142 meq/L 136-145 (test code = 381) POTASSIUM (BEAKER) 3.2 meq/L 3.5-5.1 L (test code = 379) CHLORIDE (BEAKER) 101 meq/L 98-107 (test code = 382) CO2 (BEAKER) (test 32 meq/L 22-29 H code = 355) BLOOD UREA NITROGEN 10 mg/dL 7-21 (BEAKER) (test code = 354) CREATININE (BEAKER) 0.74 mg/dL 0.57-1.25 (test code = 358) GLUCOSE RANDOM 154 mg/dL 70-105 H (BEAKER) (test code = 652) CALCIUM (BEAKER) 9.6 mg/dL 8.4-10.2 (test code = 697) EGFR (BEAKER) (test 107 mL/min/1.73 ESTIM ATED GFR IS code = 1092) sq m NOT ACCURATE CREATININE CLEARANCE IN PREDICTING GLOMERULAR FILTRATION RATE . ESTIMATED GFR I S NOT APPLICABLE FOR DIALYSIS PATIEN TS. Consumer Product Advisor ID - DBPOCT-GLUCOSE [id number] 17:25:11 Test Item Value Reference Range Interpretation Comments POC-GLUCOSE METER 145 mg/dL 70-110 H : TESTED A T [facility] 6720 (BEAKER) (test code = [facility], 1538) [address]: Consumer Product Advisor/Techni bobby ID = [id number] for OR MYNOR HOOKER CT, CHEST, WITHOUT [id number] 13:22:00Unlisted Reason for Exam - Click Yes and Enter Reason Below->YesUnlisted Reason for Exam->empyema s/p decortication, eval for residual collections [facility] 1960 Sex: MFINAL REPORT TECHNIQUE: CT of the chest WITHOUT intravenous contrast. Dose modulation, iterative reconstruction, and/or weight-based adjustment of the mA/kV was utilized to reduce the radiation dose to as low as reasonably achievable. INDICATION: 61-year-old man with empyema status post decortication. COMPARISON: Chest CT 02/03/2021, CT-guided left chest tube placement 02/05/2021. FINDINGS:ABSENCE OF INTRAVENOUS CONTRAST DECREASES SENSITIVITY FOR DETECTION OF FOCAL LESIONS AND VASCULAR PATHOLOGY. LINES/TUBES: Three left chest tubes in place. LUNGS AND AIRWAYS: Patent central airways. Curvilinear atelectasis throughout the left lung. Mild atelectasis in scattered in the right lung. New focal groundglass opacity in the periphery of the right upper lobe. Unchanged 3 mm noncalcified nodulein the right upper lobe (axial lung window series image 61). PLEURA: Persistent small loculated leftpleural effusion with near complete resolution of the anterior component after recent chest tube placement. Largest residual component along the upper left mediastinum has decreased in size from 8.9 x 3.5 cm to 7.4 x 2.9 cm. Slight increase in the layering small right pleural effusion. HEART AND MEDIASTINUM: Visualized thyroid gland is normal. No significant mediastinal, hilar, or axillary lymphadenopathy. Heart and pericardium are within normal limits. BONES AND SOFT TISSUES: No acute osseous abnormality. Decreased soft tissue air in the chest. UPPER ABDOMEN: Unremarkable. IMPRESSION:Decreased in size of the small loculated left pleural effusion since 02/03/2021. Slight increase in the layering small right pleural effusion. New groundglass opacity in the periphery of the right upper lobe. Differential considerations include atelectasis and infectious/inflammatory process. Unchanged 3 mm pulmonary nodule in the right upper lobe. If patient is at high risk for lung neoplasm, then optional follow-up chest CT may be obtained in 12 months for reassessment. Otherwise, no routine follow-up imaging re commended. Signed: Estephania Victoria Verified Date/Time: 02/09/2021 13:22:14 Reading Location: [facility] C013Y CT Body Reading Room POCT-GLUCOSE METER 2021-02-09 12:43:52 Test Item Value Reference Range Interpretation Comments POC-GLUCOSE METER 158 mg/dL 70-110 H : TESTED A T [facility] 6720 (BEAKER) (test code = [facility] [place], 1538) [id number]: Consumer Product Advisor/Techni bobby ID = [id number] for OR FELIPETrMYNOR RAD, CHEST, 1 VIEW, NON [id number] 11:16:00Reason for exam:->s/p chest tubes placementShould this be performed at the bedside?->Yes [facility] : 1960 Sex: MFINAL REPORT TECHNIQUE: One view of the chest. INDICATION: 61-year-old man status post chest tubes. COMPARISON: Chest radiograph 02/07/2021. FINDINGS: LINES/TUBES: Interval removal of the right internal jugular central venous catheter. Other lines/tubes are unchanged. LUNGS/PLEURA: Lungs arewell inflated. Persistent airspace in the left lung. Apparent mild decrease in left pleural opacities. No pneumothorax. HEART AND MEDIASTINUM: Cardiomediastinal silhouette is unchanged. BONES AND SOFT TISSUES: No acute osseous abnormality. Apparent decrease in subcutaneous emphysema in the left chest wall. IMPRESSION:Apparent mild decrease in left pleural opacities. Otherwise, no significant change since 02/07/2021. Signed: Estephania Victoria Verified Date/Time: 02/09/2021 11:16:23 Reading Location: [facility] C013Y CT Body Reading Room POCT-GLUCOSE METER 2021-02-09 08:14:21 Test Item Value Reference Range Interpretation Comments POC-GLUCOSE METER 113 mg/dL 70-110 H : TESTED A T [facility] 6720 (BEAKER) (test code = [facility], 1538) [address]: Consumer Product Advisor/Techni bobby ID = [id number] for OR MYNOR HOOKER SARS-COV2/RT-PCR ([facility])2021-02-09 07:43:34 Test Item Value Reference Range Interpretation Comments SARS-COV2/RT-PCR Negative Negative The SARS-Co V-2 target (test code = nucleic acids a re not [id number]) detected in thi s specimen. Negative result s do not preclude SARS-C oV-2 infection and s hould not be used as the soheila e basis for patient managem ent decisions. Nega tive results must be combine d with clinical observ ations, patient history , and epidemiological information. A false negativ e result may occur if a spec imen is improperly kelin ected, transported or handled. This SARS CoV-2 test is a rapid, real-time RT-PC R test intended for th e qualitative detection of nu cleic acid from SARS-CoV-2 in a nasopharyngeal swab specimen collected from individuals suspected of CO VID-19 by their healthcar e provider. This test has been authorized by FDA under an EUA for use by authorized laboratories. This test is only authorized for the duration of the declaration that circumstances exist justifying the authorization of emergency use of in vitro diagnostic tests for detection and/or diagnosis of COVID-19 under Section 564(b)(1) of the Federal Food, Drug and Cosmetic Act, 21 U.S.C. 360bbb-3(b)(1), unless the authorization is terminated or revoked sooner. Fact Sheet for Healthcare Providers: https://www.Live[employer] m/Documents/Xpert%20Xpress%20SARS%20CoV-2/Fact%20Sheets/302-3802%92EWIL-ADQ-6%20 HEALTHCARE%20PROVIDERS%20FACT%20SHEET.pdf Fact Sheet for Healthcare Patients: https://www.[facility]/Documents/Xpert%20Xp ress%20SARS%20CoV-2/Fact%20Sheets/3023801%92AGYR-BMY-6%20PATIENT%20FACT%20SHEET .pdfCOMPREHENSIVE METABOLIC [id number] 07:01:43 Test Item Value Reference Range Interpretation Comments TOTAL PROTEIN 6.2 gm/dL 6.0-8.3 (BEAKER) (test code = 770) ALBUMIN (BEAKER) 2.5 g/dL 3.5-5.0 L (test code = 1145) ALKALINE PHOSPHATASE 47 U/L 40-150 (BEAKER) (test code = 346) BILIRUBIN TOTAL 0.5 mg/dL 0.2-1.2 (BEAKER) (test code = 377) SODIUM (BEAKER) (test 143 meq/L 136-145 code = 381) POTASSIUM (BEAKER) 3.1 meq/L 3.5-5.1 L (test code = 379) CHLORIDE (BEAKER) 103 meq/L 98-107 (test code = 382) CO2 (BEAKER) (test 35 meq/L 22-29 H code = 355) BLOOD UREA NITROGEN 9 mg/dL 7-21 (BEAKER) (test code = 354) CREATININE (BEAKER) 0.67 mg/dL 0.57-1.25 (test code = 358) GLUCOSE RANDOM 97 mg/dL 70-105 (BEAKER) (test code = 652) CALCIUM (BEAKER) 9.4 mg/dL 8.4-10.2 (test code = 697) AST (SGOT) (BEAKER) 53 U/L 5-34 H (test code = 353) ALT (SGPT) (BEAKER) 35 U/L 6-55 (test code = 347) EGFR (BEAKER) (test 120 ESTIMATE D GFR IS code = 1092) mL/min/1.73 sq NOT ACCURA TE m CREATININE CLEARANCE IN PREDICTING GLOMERULAR FILTRATION RATE . ESTIMATED GFR I S NOT APPLICABLE FOR DIALYSIS PATIEN TS. Consumer Product Advisor ID - REANNA [id number] 07:01:43 Test Item Value Reference Range Interpretation Comments MAGNESIUM (BEAKER) (test code = 1.7 mg/dL 1.6-2.6 627) Consumer Product Advisor ID - REANNA LCBC (Hemogram only)2021-02-09 06:39:18 Test Item Value Reference Range Interpretation Comments WBC (test code = 6690-2) 9.7 See_Comment [A utomated message] The system SimPrint[employer] generated this result transmitted ref erence range: 3.5 - 10 .5 K/L. The refe rence range was not u sed to interpret this result as normal/abnor mal. RBC (test code = 789-8) 2.48 See_Comment L [Au tomated message] The system [employer] generated this result transmitted ref erence range: 4.63 - 6 .08 M/L. The refe rence range was not u sed to interpret this result as normal/abnor mal. MCHC (test code = 786-4) 31.4 See_Comment L [A utomated message] The system [employer]Print[employer] generated this result transmitted ref erence range: 32.3 - 3 6.5 GM/DL. The refe rence range was not u sed to interpret this result as normal/abnor mal. Hematocrit (test code = 23.6 % 40.1-51.0 L 4544-3) MCV (test code = 787-2) 95.2 fL 79.0-92.2 H MCH (test code = 785-6) 29.8 pg 25.7-32.2 RDW (test code = 788-0) 14.6 % 11.6-14.4 H Platelets (test code = 370 See_Comment [Aut omated message] 777-3) The system [employer]Print[employer] generated this result transmitted ref erence range: 150 - 45 0 K/CU MM. The referen ce range was not u sed to interpret this result as normal/abnor mal. MPV (test code = 10.8 fL 9.4-12.4 80475-9) nRBC (test code = 413) 0 See_Comment [Aut omated message] The system SimPrint[employer] generated this result transmitted ref erence range: 0 - 0 /1 00 WBC. The refere nce range was not u sed to interpret this result as normal/abnor mal. Lab Interpretation (test Abnormal code = 84676-1) [facility] (HEMOGRAM ONLY)2021-02-09 06:39:18 Test Item Value Reference Range Interpretation Comments WHITE BLOOD CELL COUNT (BEAKER) 9.7 K/ L 3.5-10.5 (test code = 775) RED BLOOD CELL COUNT (BEAKER) 2.48 M/ L 4.63-6.08 L (test code = 761) HEMOGLOBIN (BEAKER) (test code = 7.4 GM/DL 13.7-17.5 L 410) HEMATOCRIT (BEAKER) (test code = 23.6 % 40.1-51.0 L 411) MEAN CORPUSCULAR VOLUME (BEAKER) 95.2 fL 79.0-92.2 H (test code = 753) MEAN CORPUSCULAR HEMOGLOBIN 29.8 pg 25.7-32.2 (BEAKER) (test code = 751) MEAN CORPUSCULAR HEMOGLOBIN CONC 31.4 GM/DL 32.3-36.5 L (BEAKER) (test code = 752) RED CELL DISTRIBUTION WIDTH 14.6 % 11.6-14.4 H (BEAKER) (test code = 412) PLATELET COUNT (BEAKER) (test 370 K/CU MM 150-450 code = 756) MEAN PLATELET VOLUME (BEAKER) 10.8 fL 9.4-12.4 (test code = 754) NUCLEATED RED BLOOD CELLS 0 /100 WBC 0-0 (BEAKER) (test code = 413) pH, body [id number] 04:08:04 Test Item Value Reference Range Interpretation Comments pH, Body Fluid 7.2 (test code = 2748-2) PH FLUID TYPE Body fluid Reference (test code = range:Reference 99013-8) ranges have not been established on thistype of flu id for this test. RUTHIE (test code Performing Lab *EMBER = RUTHIE) [facility]/[place] [id number] [place] [address] Almita Payton MD, PhD [facility] Center[facility] [id number] 20:45:01 Test Item Value Reference Range Interpretation Comments POC-GLUCOSE METER 125 mg/dL 70-110 H : TESTED A T [facility] 6720 (BEAKER) (test code = [facility] [place], 1538) [address]: Consumer Product Advisor/Techni bobby ID = [id number] for VICKY ANDERSEN Blood Culture - Routine (Left Venipuncture)2021-02-08 19:01:04 Test Item Value Reference Range Interpretation Comments Result (test code = No growth in 5 days 6463-4) [facility] CenterBL[facility]OD [id number] 19:01:04 Test Item Value Reference Range Interpretation Comments CULTURE (BEAKER) (test No growth in 5 days code = 1095) POCT-GLUCOSE [id number] 18:18:33 Test Item Value Reference Range Interpretation Comments POC-GLUCOSE METER 99 mg/dL 70-110 : TESTED A T [facility] 6720 (BEAKER) (test code = [facility], 1538) [address]: Consumer Product Advisor/Techni bobby ID = [id number] for Suma Lopez BASIC METABOLIC [id number] 17:26:47 Test Item Value Reference Range Interpretation Comments SODIUM (BEAKER) 143 meq/L 136-145 (test code = 381) POTASSIUM (BEAKER) 3.1 meq/L 3.5-5.1 L (test code = 379) CHLORIDE (BEAKER) 105 meq/L 98-107 (test code = 382) CO2 (BEAKER) (test 32 meq/L 22-29 H code = 355) BLOOD UREA NITROGEN 10 mg/dL 7-21 (BEAKER) (test code = 354) CREATININE (BEAKER) 0.67 mg/dL 0.57-1.25 (test code = 358) GLUCOSE RANDOM 61 mg/dL 70-105 L (BEAKER) (test code = 652) CALCIUM (BEAKER) 9.3 mg/dL 8.4-10.2 (test code = 697) EGFR (BEAKER) (test 120 mL/min/1.73 ESTIM ATED GFR IS code = 1092) sq m NOT ACCURATE CREATININE CLEARANCE IN PREDICTING GLOMERULAR FILTRATION RATE . ESTIMATED GFR I S NOT APPLICABLE FOR DIALYSIS PATIEN TS. Consumer Product Advisor ID - DBPOCT-GLUCOSE [id number] 17:22:28 Test Item Value Reference Range Interpretation Comments POC-GLUCOSE METER 55 mg/dL 70-110 L : TESTED A T [facility] 6720 ([employer]) (test code = [facility], 1538) [address]: Consumer Product Advisor/Techni bobby ID = [id number] for Ai Hassan POCT-GLUCOSE [id number] 12:21:39 Test Item Value Reference Range Interpretation Comments POC-GLUCOSE METER 101 mg/dL 70-110 : TESTED A T [facility] 6720 ([employer]) (test code = [facility], 1538) [address]: Consumer Product Advisor/Techni bobby ID = [id number] for Ai Carpenter SARS-COV2/RT-PCR ([facility])2021-02-08 11:03:00 Test Item Value Reference Range Interpretation Comments SARS-COV2/RT-PCR (test code = Negative Negative [id number]) Negative result for this test determines that SARS-CoV-2 RNA was not present in the specimen above the Limit of Detection (LOD). However, Negative results do not preclude SARS-CoV-2 infection and should not be used as the sole basis for treatment or patient management decisions. Negative results must be combined with clinical observations, patient history, and epidemiological information. A false negative result may occur if a specimen is improperly collected, transported, or handled. A false negative result should be considered if patient's recent exposures or clinical presentation indicate that COVID-19 (SARS-CoV-2) is likely and diagnostic tests for other causes of illness are negative. Re-testing should be considered in cases of suspected false negatives.The limit of detection for this assay is 100 copies/mL.This SARS-CoV-2 test is a real-time RT_PCR test intended for the qualitative detection of nucleic acid from SARS-CoV-2 in a nasopharyngeal swab specimen collected from individuals suspected of COVID-19 by their healthcare provider.This test has not been Food and Drug Administration (FDA) cleared or approved. This is a modified version of an approved Emergency Use Authorization (EUA) and is in the process of review by the FDA. Once authorized by the FDA, the issued EUA will be effective until the declaration that circumstances exist justifying the authorization of the emergency use of in vitro diagnostic tests for detection and/or diagnosis of COVID-19 is terminated under Section 564(b)(2) of the Act or the EUA is revoked under Section 564(g) of the Act.Testing was performed using [employer] SARS-CoV-2 assay.Fact Sheet for Healthcare Providers:https://www.[employer]/herminio/RT SARS-CoV-2 HCP Fact Sheet 51- 112186.pdfFact Sheet for Healthcare Patients:https://www.[employer]/herminio/RT SARS-CoV-2 Patient Fact Sheet EN 51-243011I7.pdfPOCT-GLUCOSE [id number] 07:31:17 Test Item Value Reference Range Interpretation Comments POC-GLUCOSE METER 91 mg/dL 70-110 : TESTED A T [facility] 6720 [facility] (test code = [facility], 1538) [address]: Consumer Product Advisor/Techni bobby ID = [id number] for Ai Hassan [id number] 05:55:54 Test Item Value Reference Range Interpretation Comments MAGNESIUM (BEAKER) (test code = 1.8 mg/dL 1.6-2.6 627) Consumer Product Advisor ID - PIAYA LCOMPREHENSIVE METABOLIC [id number] 05:55:53 Test Item Value Reference Range Interpretation Comments TOTAL PROTEIN 6.0 gm/dL 6.0-8.3 (BEAKER) (test code = 770) ALBUMIN (BEAKER) 2.4 g/dL 3.5-5.0 L (test code = 1145) ALKALINE PHOSPHATASE 44 U/L 40-150 (BEAKER) (test code = 346) BILIRUBIN TOTAL 0.4 mg/dL 0.2-1.2 (BEAKER) (test code = 377) SODIUM (BEAKER) (test 147 meq/L 136-145 H code = 381) POTASSIUM (BEAKER) 3.4 meq/L 3.5-5.1 L (test code = 379) CHLORIDE (BEAKER) 110 meq/L 98-107 H (test code = 382) CO2 (BEAKER) (test 32 meq/L 22-29 H code = 355) BLOOD UREA NITROGEN 9 mg/dL 7-21 (BEAKER) (test code = 354) CREATININE (BEAKER) 0.68 mg/dL 0.57-1.25 (test code = 358) GLUCOSE RANDOM 86 mg/dL 70-105 (BEAKER) (test code = 652) CALCIUM (BEAKER) 9.2 mg/dL 8.4-10.2 (test code = 697) AST (SGOT) (BEAKER) 47 U/L 5-34 H (test code = 353) ALT (SGPT) (BEAKER) 30 U/L 6-55 (test code = 347) EGFR (BEAKER) (test 118 ESTIMATE D GFR IS code = 1092) mL/min/1.73 sq NOT ACCURA TE m CREATININE CLEARANCE IN PREDICTING GLOMERULAR FILTRATION RATE . ESTIMATED GFR I S NOT APPLICABLE FOR DIALYSIS PATIEN TS. Consumer Product Advisor ID - REANNA LPOCT-GLUCOSE [id number] 21:49:43 Test Item Value Reference Range Interpretation Comments POC-GLUCOSE METER 104 mg/dL 70-110 : TESTED A T [facility] 6720 (BEAKER) (test code = [facility], 1538) 37028: Consumer Product Advisor/Techni bobby ID = [id number] for CRISTINA SHEIKH POCT-GLUCOSE [id number] 17:16:18 Test Item Value Reference Range Interpretation Comments POC-GLUCOSE METER 102 mg/dL 70-110 : TESTED A T [facility] 6720 (BEAKER) (test code = [facility], 1538) [address]88[address]: Consumer Product Advisor/Techni bobby ID = [id number] for St veenaBree alexisa BASIC METABOLIC [id number] 15:59:05 Test Item Value Reference Range Interpretation Comments SODIUM (BEAKER) 149 meq/L 136-145 H (test code = 381) POTASSIUM (BEAKER) 3.4 meq/L 3.5-5.1 L (test code = 379) CHLORIDE (BEAKER) 113 meq/L 98-107 H (test code = 382) CO2 (BEAKER) (test 34 meq/L 22-29 H code = 355) BLOOD UREA NITROGEN 10 mg/dL 7-21 (BEAKER) (test code = 354) CREATININE (BEAKER) 0.64 mg/dL 0.57-1.25 (test code = 358) GLUCOSE RANDOM 132 mg/dL 70-105 H (BEAKER) (test code = 652) CALCIUM (BEAKER) 9.4 mg/dL 8.4-10.2 (test code = 697) EGFR (BEAKER) (test 126 mL/min/1.73 ESTIM ATED GFR IS code = 1092) sq m NOT ACCURATE CREATININE CLEARANCE IN PREDICTING GLOMERULAR FILTRATION RATE . ESTIMATED GFR I S NOT APPLICABLE FOR DIALYSIS PATIEN TS. Consumer Product Advisor ID - BSBlood gas, [id number] 15:50:11 Test Item Value Reference Range Interpretation Comments pH, Ermias (test code = 7.43 7.32-7.42 H 2746-6) pCO2, Ermias (test code = 52 See_Comment H [Aut omated message] 755) The system SimPrints generated this result transmit tuyet reference range : 41 - 51 mm Hg. The reference range was not used to interpret this result as normal/abnormal . pO2, Ermias (test code = 50 See_Comment H [Auto mated message] 6015-2) The system [employer] generated this result transmit tuyet reference range : 25 - 40 mm Hg. The reference range was not used to interpret this result as normal/abnormal . O2 Sat, Ermias (test code 85.3 % 40.0-70.0 H = 2711-0) HCO3, Ermias (test code = 33 mmol/L 21-29 H 82372-9) Base Excess, Ermias (test 7.3 mmol/L -2.0-3.0 H code = 1927-3) Patient Temperature 37.0 (test code = 8310-5) FIO2 (test code = 1819) 40 Lab Interpretation Abnormal (test code = 39306-3) [facility], [id number] 15:50:11 Test Item Value Reference Range Interpretation Comments PH VENOUS (BEAKER) (test code = 7.43 7.32-7.42 H 701) PCO2 VENOUS (BEAKER) (test code = 52 mm Hg 41-51 H 755) PO2 VENOUS (BEAKER) (test code = 50 mm Hg 25-40 H 702) O2 SATURATION VENOUS (BEAKER) 85.3 % 40.0-70.0 H (test code = 703) HCO3 VENOUS (BEAKER) (test code = 33 mmol/L 21-29 H 705) BASE EXCESS VENOUS (BEAKER) (test 7.3 mmol/L -2.0-3.0 H code = 704) PATIENT TEMPERATURE (BEAKER) (test 37.0 code = 1818) FIO2 (BEAKER) (test code = 1819) 40.0 CBC (HEMOGRAM ONLY)2021-02-07 15:50:03 Test Item Value Reference Range Interpretation Comments WHITE BLOOD CELL COUNT (BEAKER) 11.5 K/ L 3.5-10.5 H (test code = 775) RED BLOOD CELL COUNT (BEAKER) 2.32 M/ L 4.63-6.08 L (test code = 761) HEMOGLOBIN (BEAKER) (test code = 7.0 GM/DL 13.7-17.5 L 410) HEMATOCRIT (BEAKER) (test code = 23.6 % 40.1-51.0 L 411) MEAN CORPUSCULAR VOLUME (BEAKER) 101.7 fL 79.0-92.2 H (test code = 753) MEAN CORPUSCULAR HEMOGLOBIN 30.2 pg 25.7-32.2 (BEAKER) (test code = 751) MEAN CORPUSCULAR HEMOGLOBIN CONC 29.7 GM/DL 32.3-36.5 L (BEAKER) (test code = 752) RED CELL DISTRIBUTION WIDTH 14.9 % 11.6-14.4 H (BEAKER) (test code = 412) PLATELET COUNT (BEAKER) (test 333 K/CU MM 150-450 code = 756) MEAN PLATELET VOLUME (BEAKER) 10.7 fL 9.4-12.4 (test code = 754) NUCLEATED RED BLOOD CELLS 0 /100 WBC 0-0 (BEAKER) (test code = 413) CT, DRAINAGE, CHEST TUBE [id number] 13:09:00With anesthesia Reason for exam:->left mediastinal fluid collection Anesthesia:->General [facility] S[facility]ULDING : 1960 Sex: MFINAL REPORT PROCEDURE: Chest tube placement Procedural PersonnelAttending physician(s): Bebeto Rice Pre-procedure diagnosis: Loculated left empyema status post surgical intervention with persistent loculation.Post-procedure diagnosis: SameIndication: Leukocytosis associated with pleural fluid collectionAdditional clinical history: None Complications: No immediate complications. IMPRESSION: Left-sided 10 Burkinan chest tube placement, yielding 50 mL of serosanguinous fluid. Plan: Catheter to wall suction PROCEDURE SUMMARY:- Percutaneous pleural drainage with insertion of indwelling catheter under CT guidance- Additional procedure(s): None PROCEDURE DETAILS: Pre-procedureConsent: Informed consent for the procedure including risks, benefits and alternatives was obtained and time-out was performed prior to the procedure.Preparation: The site was prepared and draped using maximal sterile barrier technique including cutaneous antisepsis. Anesthesia/sedationLevel of anesthesia/sedation: Patient sedated per ICU protocol.Anesthesia/sedation administered by: Independent trained observer under attending supervision with continuous monitoring of the patient\\X2019\\s level of consciousness and physiologic statusTotal intra-service sedation time (minutes): 20 Chest tube placementThe patient was positioned supine. Initial imaging was performed. Local anesthesia was administered. The pleural space was accessed using an access n eedle followed by wire insertion and serial dilation and a drainage catheter was placed. Position ofthe drainage catheter within the pleural space was confirmed.- Initial imaging findings: Left anterior loculation identified- Drainage catheter placed: 10 Burkinan Multipurpose drainage catheter- External catheter securement: Non-absorbable suture- Post-drainage imaging findings: Partial drainage of theloculated fluid- Additional findings: None ContrastContrast agent: None Radiation DoseCT dose lengthproduct (mGy-cm): 1018 Additional DetailsAdditional description of procedure: NoneEquipment details: NoneSpecimens removed: Aspirated fluid was not sent for analysis.Estimated blood loss (mL): Less than 1 Signed: Bebeto Rice Verified Date/Time: 02/07/2021 13:09:25 Reading Location: [address] Body Reading Room POCT-GLUCOSE [id number] 11:42:22 Test Item Value Reference Range Interpretation Comments POC-GLUCOSE METER 178 mg/dL 70-110 H : Notified RN/MD: (BREANNA) (test code = TESTED AT [facility] 6720 1538) [facility], [address]: Consumer Product Advisor/Techni bobby ID = [id number] for Britta Carreon [id number] 08:54:56 Test Item Value Reference Range Interpretation Comments Case Report (test code Medical Cytology = 104) Report Case: [id number] Authorizing Provider: Sander Nolan MD Collected: 02/01/2021 02:32 PM Ordering Location: [place] [address] ICU Received: 02/01/2021 06:33 PM Pathologist: Maria Esther North MD Specimen: Pleural, laterality not designated DIAGNOSIS (test code = [id number] 3220) FuZzEwMzNcZnRuYmpcdWMx IHtccnRmMVxlcGljOTYwMV wgnrLrIKNdvPVjL1Vqhegg BNpdQS2jZJ3qzQtkzKToeJ RpFGNfYaOqe1zcv629nXQj l8rkWSQNvpceuBi1cPwxR0 9du0E2FearT84pyKDeJDZ2 BLEfKNPmyLGpREVuNUA9LD GmkLKeB0ngTSInOM8ebket TKwzATsrHBCmrLE4XQHisE GxL9ScRLOmITdvHIVmqwl6 VqRuUq5pzQOheDjhWQnwXO JkXHBsYWluXGZzMjAgUExF VVJBTCBGTFVJRCwgTEFURV DDVBlXYKZJP3YsK0HEZ0gG FABPMRRVWI6CJQLQJiTJB1 tHInnmNSYeBDBhKL7AYB6Q TElHTkFOVCBDRUxMUyBJRE VOVElGSUVEXGxpbmUgICAg UAIANZ3NSA7UBKGRDOJGEE LZQq5UUZOkOW3LXBZFZJYM U6ZVFASOJXsXOLEkgl78WF M1NyRas2E4UNM3NJEtTCPl s9bqEKJgnLOxHhImRcXqYq EaDajypFNjXRQvTbPuu5jx g617jKEgx0ouVTFfQxV4qT ZsOBCsvRMkK902DTJoQSgn j8pyx8ShVHBeeAWmz9U2FN ZYdzioeBe4yErlR82yc1Z5 XztrG7ptWJQcVZCrB3RbXF 4nEFJoDwq3LDY8QJN8PRJe BVHyU7DtBG3sUKHaxGYcYO b0g6leoDqqTILhQND2p3ct CMzdgkCdFF9ydj9dkZk8y2 xjczEgRGVmYXVsdCBQYXJh A5EmwNzyJt1vzBd1fEsbDa oqQDX7Gzj0OC6oup99qlj0 lXhfBEScfidqKmV2XIaeXC FfjkszRWy9OYavUIGniUC3 CYQgzECtX6EjQFZnLS9pmh e7RSQ1FVsbMQIyTzD5OOWk jKRiYKDzfEfbTEdah596UW Y4OwGrIG1xG4Kke4J1mD8p aXRcZGVmdGFiNzIwXGZvcm 7vnZEdDKlpf0QhFOL8mnS3 rOSinGBeVELoBwN3PXfpFK 4yes02IKLpCWT0as4tkUFx aLfnitHfoEPhPWowC9CaEL Eli061YZFzQ6OpBFEcx6P5 xxSyZgEcVMUgfGK7rmS9MK SlYI5crrdwc6kaMBbjCMph SQYvjnC5xaG9AAOlkSZnW6 PhrU7nKNNyDU0vdthci3tm WYG5LHapEXQrMWI9HsQtGH Ztc6Lplbg9SbXho5YfaCJh NEheD23oo567IXDqwiDyG9 xwbGFpblxwbGFpblxmMFxm mgT1ZOIvMCldvwscKOVqEJ jfE0zqFxPyCSBguDkyAKkp g9AzMCMoMIUaZtBgyOBxJG XgZum6AGXijKTdLDMzPwKs L5rhcdcyShPWIVQri4ojA5 cxvFPDaUNmJ7SjCAoaveEj PEwqUNxiPnMdYDs1KZ93Sk ByYczdTIT4mV== COMMENT (test code = y6ktkULdCBMcxKY5NdLpTL 4932) Bmz7vww6HkgIMisDImZSxd yOBhgbXgof95hTC1jL79PS 4hYCRcMuX4FXTdkdB4Zhc3 SWNoQNGvdGSfF609b4erq8 ptquHimEX4cFvjRMUutunp VjG3IBtzZYBpnhwvNPe7IX aaMVOxhJP7UTKluPPtX6Kb ZDJjDN2sgxq9RKC6CXkeGP AfTpI4NKYasMBvXGOiwBmv JAnun490AXZ9FhLhLMCnnf UcyCypxL4gEjRdFUKIvQEi U4NdtWXon8IxUJZqrlU0ke Evx2n8sXS7lFNcNFKmduSb TOpiP04rc6dhMZZemu6= CPT Code(s) (test code y6nwqFRnWJQvlIL1LyRkSI = 3357) Ynm2jsx4EcxRCfeERxGGts tMAtbxKubx29yNL1iM89JH 3xFIInPbL1NLDdrcJ9Hcl3 JPMePEBxvTAfS882a9slk6 pommAnhSG2nBhoRFYmzspi ZsW8OXpaZMCluungAWz4HD klZWVgoQV8EYVylEToG9Pr AEGqFM7xkei0WMS6EKyiQK LbNkO1OUXmsKUrFFBdeCcw KIcmw450SGC5LfBqVOCexz CrsVjsrH6xBlWmZHL7EVYm OCwgODgzMDVccGFyfQ== CLINICAL DATA (test z9llgADmAFWvnDZ4YqDgDV code = 3355) Zcy6opt0OdyLIwpXZrOUyv pURjcxMqtk63pID5aD39VM 0dNDCzAmR4UFUifyZ5Aqi6 PVLnZRPpdPRiI756x2cax3 pjopMhzDY9rNqrRTJdehpg UlF4YTrtXDIkmvuoRTe2QC qaNDPqfAV3BPImaSJmC5Pa YGRjFU3gpgw8CZB7DLtiER LxFxU2PBHbkTFbITZdsIex RBnof902GNL6WvNbCWGdyg IvpVirmY2oMnVxTBVEgGP1 roJdLUUeKpUxgR5tPPOqls 0= SPECIMEN SOURCE (test h8dchDMkJWTfkAP7EoNdTM code = 3377) Uxy1twu6FnkOSziYKnLBzu cPRsvcSkjd23sPT5zF38US 8tYDQhWvC4KWYohcU1Plo4 DETkUTJybTGeY602c5dzk0 rcmzWvoPS4xAruSUZyttnq VuP5PNotNHTcubhmVRa8PR dxBGWgcOI9JLAifFHsH7Ed OEEhTP3dvdk1SBQ9YLrrWV NyUfX6XXOobXHsWGLziAma YFzfi264NYU3ZiQcLQOeuy XdkXxlgU5tSnEkDHESMTOI UkFMLCBGTFVJRCAoTEFURV PTVOoVJOBQZ9QeVXAVGMuS QVRFRClccGFyfQ== GROSS DESCRIPTION (test v3dgeMJuUQScbQQ8MwArBI code = 3366) Jhx2kff9KbsTJvrTLfOZdq tAFpxnWvbt65wWT7hY15VR 9aDDMnJmR6YWVyahV5Gke2 LEUbVNLgqYWzJ900h3rtu6 rkxtNrrJZ7cFnfCTNydkfp SsU5LMidRPPsjwxvIIs9SA xtYXJnbDcyMFxtYXJncjcy MFxtYXJndDcyMFxtYXJnYj yfOKzfDHCcGDP0NVxvz141 CYZ2IXhyR4fzyN6yGsH7JY dwB4yfeH4yPWo1PZavGRDn bUI5chgdNSamEXXqfwF9vv lyMWsdYEWyhNL1vfgsRAix XULoQsX0zztaWRkcWFLtUE BsYWluXGZzMjAgUmVjZWl2 ZWQgNyBtbCBjbGVhciwgeW JqnX88RJLlfGleAZXypfWg uO1vapwbjdZhHSBis07bEE Kch1CpQtOxdlHpDOWmZRV1 KBN4rRJlsNlvgsOemiUhM7 UjaZPcfM9iqnmYOqrrUPXp MLtpWOIls0GaKAVcpAHoTI odXPTnon2xgJypOND8GTB5 BYDmyC0df04rSDOeTfnoIa FccGFyfQ== MICROSCOPIC DESCRIPTION b0dtmJIhYWAhtNH0HiZzHV (test code = 3371) Efy3ltv0DaoUNppHMiFUey jKNudeAgjo17jHS4fJ98TP 7gWLZxEoY1QYFkwjK6Ian0 CDMwFQIsnNXcQ031o3ndi3 qelnMmrZK2mHxxUTWvgbse HpI8OHeoJYOdggnmZTf3WP gbAXUrdBE0ZAPdcHWbC3Mq XPOdAH4nryc5OCK3CMucST NuQkU6GNLzgXAsGFJcuUjr IPzfa125DWB0VzXnSFRgla XhlIqxjD0zVaRxQYJMXDZv e2AfIKIoAGryYXE5 STATEMENT OF ADEQUACY Satisfactory (test code = 2757) Gross assessment was [facility] performed at ([facility], = 2777) Department of Pathology, [address] [place] [address], Technical component was [facility] performed at ([facility], = 2778) Department of Pathology, [address] [place] [address], Professional component [facility] was performed at ([facility], code = 2779) Department of Pathology, [address] [place] [address], [facility]20[facility] 08:54:56Medical Cytology Report Case: [id number] Authorizing Provider: Sander Nolan MD Collected: 02/01/2021 02:32 PM Ordering Location: [place] [address] ICU Received: 02/01/2021 06:33 PM Pathologist: Maria Esther North MD Specimen: Pleural, laterality not designated PLEURAL FLUID, LATERALITY NOT SPECIFIED, THORACENTESIS: -NO MALIGNANT CELLS IDENTIFIED -ABUNDANT ACUTE CHRONIC INFLAMMATORY CELLS Signing Pathologist Direct Phone Line: [phone] signed by Maria Esther North MD on 02/07/2021t 8:54 AMThe cellblock concurs with the above [id number], 06310Eiyakko effusionPLEURAL, FLUID (LATERALITY NOT DESIGNATED)Received 7 ml clear, yellow fluid containing red blood clots; prepared 4 cytsopins and cell block(A2) - cell block fixed in formalin at 2:42 pm on 02/05/21Performed. [facility] Department of Pathology, [address] [place] [address], [facility] of [facility], [address] [place] [address], [facility], [facility] of Pathology, [address] [place] [address], Oavbhk [id number] 07:47:28 Test Item Value Reference Range Interpretation Comments % Neutros (test code = 93 % 2816) % Lymphs (test code = 4 % 2817) % Monos (test code = 1 % 2818) % Metamyelo (test code 1 % 0-0 H = 2821) % Atypical Lymphs (test 1 % 0-0 H code = 2829) # Neutros (test code = 10.51 K/ul 1.78-5.38 H 2830) # Lymphs (test code = 0.45 K/ul 1.32-3.57 L 2831) # Monos (test code = 0.11 K/uL 0.30-0.82 L 2832) # Metamyelo (test code 0.11 K/uL 0.00-0.00 H = 2836) # Atypical Lymphs (test 0.11 K/uL 0.00-0.00 H code = 2858) Total Counted (test 100 code = 1351) Platelet Morphology Normal (test code = 486) Toxic Granulation (test Present code = 771) Polychromasia (test 1+ few code = 478) Artifact (test code = Present 3432) Platelet Conc (test Adequate code = 3438) RUTHIE (test code = RUTHIE) Consumer Product Advisor ID - Elzbieta Maher comments: Slide comments: Lab Interpretation Abnormal (test code = 53045-8) [facility](CELLAVISION MANUAL DIFF)2021-02-07 07:47:28 Test Item Value Reference Range Interpretation Comments NEUTROPHILS - REL 93 % (CELLAVISION)(BEAKER) (test code = 2816) LYMPHOCYTES - REL 4 % (CELLAVISION)(BEAKER) (test code = 2817) MONOCYTES - REL 1 % (CELLAVISION)(BEAKER) (test code = 2818) METAMYELOCYTES - REL 1 % 0-0 H (CELLAVISION)(BEAKER) (test code = 2821) ATYPICAL LYMPHOCYTES - REL 1 % 0-0 H (CELLAVISION)(BEAKER) (test code = 2829) NEUTROPHILS - ABS 10.51 K/ul 1.78-5.38 H (CELLAVISION)(BEAKER) (test code = 2830) LYMPHOCYTES - ABS 0.45 K/ul 1.32-3.57 L (CELLAVISION)(BEAKER) (test code = 2831) MONOCYTES - ABS 0.11 K/uL 0.30-0.82 L (CELLAVISION)(BEAKER) (test code = 2832) METAMYELOCYTES - ABS 0.11 K/uL 0.00-0.00 H (CELLAVISION)(BEAKER) (test code = 2836) ATYPICAL LYMPHOCYTES - ABS 0.11 K/uL 0.00-0.00 H (CELLAVISION)(BEAKER) (test code = 2858) TOTAL COUNTED (BEAKER) (test code 100 = 1351) PLT MORPHOLOGY (BEAKER) (test code Normal = 486) TOXIC GRANULATION (BEAKER) (test Present code = 771) POLYCHROMATOPHILLIC RBCS(BEAKER) 1+ few (test code = 478) ARTIFACT (CELLAVISION)(BEAKER) Present (test code = 3432) PLATELET CONCENTRATION Adequate (CELLAVISION)(BEAKER) (test code = 3438) Consumer Product Advisor ID - Elzbieta Maher comments: Slide comments:CBC W/PLT COUNT & AUTO [id number] 07:47:27 Test Item Value Reference Range Interpretation Comments WHITE BLOOD CELL COUNT (BEAKER) 11.3 K/ L 3.5-10.5 H (test code = 775) RED BLOOD CELL COUNT (BEAKER) 2.30 M/ L 4.63-6.08 L (test code = 761) HEMOGLOBIN (BEAKER) (test code = 7.0 GM/DL 13.7-17.5 L 410) HEMATOCRIT (BEAKER) (test code = 23.7 % 40.1-51.0 L 411) MEAN CORPUSCULAR VOLUME (BEAKER) 103.0 fL 79.0-92.2 H (test code = 753) MEAN CORPUSCULAR HEMOGLOBIN 30.4 pg 25.7-32.2 (BEAKER) (test code = 751) MEAN CORPUSCULAR HEMOGLOBIN CONC 29.5 GM/DL 32.3-36.5 L (BEAKER) (test code = 752) RED CELL DISTRIBUTION WIDTH 15.0 % 11.6-14.4 H (BEAKER) (test code = 412) PLATELET COUNT (BEAKER) (test 299 K/CU MM 150-450 code = 756) MEAN PLATELET VOLUME (BEAKER) 10.6 fL 9.4-12.4 (test code = 754) NUCLEATED RED BLOOD CELLS 0 /100 WBC 0-0 (BEAKER) (test code = 413) RAD, CHEST, 1 VIEW, NON [id number] 07:23:00Reason for exam:->s/p chest tubes placementShould this be performed at the bedside?->Yes [facility] S[facility]ULDING : 1960 Sex: MFINAL REPORT RAD, CHEST, 1 VIEW, NON DEPT INDICATION: s/p chest tubes placement COMPARISON: Prior day's exam FINDINGS: Portable frontal view of the chest. IMPRESSION: Limited by underpenetration.Support Lines: Interval extubation and removal of enteric tube. Remaining support hardware is stable. Lungs and pleura: Right lung is clear. Increasing consolidation/congestion on the left. No visible pneumothorax.Heart and mediastinum: Stable contours. Stable surgical changes.Additional findings: None. Signed: JR Michael, Raman Zarate Verified Date/Time: 02/07/2021 07:23:16 Reading Location: [facility] Reading Room POCT-GLUCOSE [id number] 05:20:08 Test Item Value Reference Range Interpretation Comments POC-GLUCOSE METER 123 mg/dL 70-110 H : TESTED A T [facility] 6720 (BEAKER) (test code = DIONI [place]ccull[place], 1538) [address]: Consumer Product Advisor/Techni bobby ID = [id number] for WYATT BAILEY [id number] 04:25:23 Test Item Value Reference Range Interpretation Comments Phosphorus (test code = 2.8 mg/dL 2.3-4.7 2777-1) RUTHIE (test code = RUTHIE) Consumer Product Advisor ID - REANNA L Lab Interpretation (test Normal code = 29181-5) [facility]2021-[facility]-29 04:25:23 Test Item Value Reference Range Interpretation Comments PHOSPHORUS (BEAKER) (test code = 2.8 mg/dL 2.3-4.7 604) Consumer Product Advisor ID - REANNA [id number] 04:25:22 Test Item Value Reference Range Interpretation Comments MAGNESIUM (BEAKER) (test code = 1.7 mg/dL 1.6-2.6 627) Consumer Product Advisor ID - REANNA LCOMPREHENSIVE METABOLIC [id number] 04:25:21 Test Item Value Reference Range Interpretation Comments TOTAL PROTEIN 5.4 gm/dL 6.0-8.3 L (BEAKER) (test code = 770) ALBUMIN (BEAKER) 2.2 g/dL 3.5-5.0 L (test code = 1145) ALKALINE PHOSPHATASE 44 U/L 40-150 (BEAKER) (test code = 346) BILIRUBIN TOTAL 0.4 mg/dL 0.2-1.2 (BEAKER) (test code = 377) SODIUM (BEAKER) (test 147 meq/L 136-145 H code = 381) POTASSIUM (BEAKER) 3.8 meq/L 3.5-5.1 (test code = 379) CHLORIDE (BEAKER) 113 meq/L 98-107 H (test code = 382) CO2 (BEAKER) (test 30 meq/L 22-29 H code = 355) BLOOD UREA NITROGEN 11 mg/dL 7-21 (BEAKER) (test code = 354) CREATININE (BEAKER) 0.64 mg/dL 0.57-1.25 (test code = 358) GLUCOSE RANDOM 130 mg/dL 70-105 H (BEAKER) (test code = 652) CALCIUM (BEAKER) 9.2 mg/dL 8.4-10.2 (test code = 697) AST (SGOT) (BEAKER) 50 U/L 5-34 H (test code = 353) ALT (SGPT) (BEAKER) 30 U/L 6-55 (test code = 347) EGFR (BEAKER) (test 126 ESTIMATE D GFR IS code = 1092) mL/min/1.73 sq NOT ACCURA TE m CREATININE CLEARANCE IN PREDICTING GLOMERULAR FILTRATION RATE . ESTIMATED GFR I S NOT APPLICABLE FOR DIALYSIS PATIEN TS. Consumer Product Advisor ID - PIAYA LProthrombin time/[id number] 04:19:22 Test Item Value Reference Interpretation Comments Range Protime (test code = 15.6 See_Comment H [Autom ated 6312-2) message] The system which generated this result transmitted reference range : 11.9 - 14.2 seconds. The reference range was not used to interpret this result as normal/abnormal . INR (test code = 1.26 See_Comment [Automated 9001-6) message] The system which generated this result transmitted reference range : <=5.90. The reference range was not used to interpret this result as normal/abnormal . RUTHIE (test code = RECOMMENDED RUTHIE) COUMADIN/WARFARIN INR THERAPY RANGESSTANDARD DOSE: 2.0 - 3.0 Includes: PROPHYLAXIS for venous thrombosis, systemic embolization; TREATMENT for venous thrombosis and/or pulmonary embolus.HIGH RISK: Target INR is 2.5-3.5 for patients with mechanical heart valves. Lab Interpretation Abnormal (test code = 41027-1) [facility] CenterPROTHROMBIN TIME/[id number] 04:19:22 Test Item Value Reference Range Interpretation Comments PROTIME (BEAKER) 15.6 seconds 11.9-14.2 H (test code = 759) INR (BEAKER) (test 1.26 See_Comment [Automat ed message] code = 370) The system [employer] generated this result transmitted ref erence range: <=5.90. The reference range was not used to int erpret this result as normal/abnormal . RECOMMENDED COUMADIN/WARFARIN INR THERAPY RANGESSTANDARD DOSE: 2.0 - 3.0 Includes: PROPHYLAXIS for venous thrombosis, systemic embolization; TREATMENT for venous thrombosis and/or pulmonary embolus.HIGH RISK: Target INR is 2.5-3.5 for patients with mechanical heart valves.Calcium, [id number] 04:09:20 Test Item Value Reference Range Interpretation Comments Calcium, Ion (test code = 1993-) 1.30 mmol/L 1.12-1.27 H pH, Blood (test code = 61536-3) 7.37 Lab Interpretation (test code = Abnormal 21606-8) [facility] CenterCALCIUM, [id number] 04:09:20 Test Item Value Reference Range Interpretation Comments CALCIUM IONIZED (BEAKER) (test 1.30 mmol/L 1.12-1.27 H code = 698) PH, BLOOD (BEAKER) (test code = 7.37 1810) BLOOD GAS, [id number] 04:09:14 Test Item Value Reference Range Interpretation Comments PH VENOUS (BEAKER) (test code = 7.36 7.32-7.42 701) PCO2 VENOUS (BEAKER) (test code = 56 mm Hg 41-51 H 755) PO2 VENOUS (BEAKER) (test code = 52 mm Hg 25-40 H 702) O2 SATURATION VENOUS (BEAKER) 83.7 % 40.0-70.0 H (test code = 703) HCO3 VENOUS (BEAKER) (test code = 31 mmol/L 21-29 H 705) BASE EXCESS VENOUS (BEAKER) (test 5.3 mmol/L -2.0-3.0 H code = 704) PATIENT TEMPERATURE (BEAKER) (test 37.5 code = 1818) FIO2 (BEAKER) (test code = 1819) 40.0 POCT-GLUCOSE [id number] 23:34:20 Test Item Value Reference Range Interpretation Comments POC-GLUCOSE METER 141 mg/dL 70-110 H : TESTED A T [facility] 6720 (BEAKER) (test code = [place], 1538) [address]: Consumer Product Advisor/Techni bobby ID = [id number] for WYATT BAILEY CBC (HEMOGRAM ONLY)2021-02-06 22:43:36 Test Item Value Reference Range Interpretation Comments WHITE BLOOD CELL COUNT (BEAKER) 11.8 K/ L 3.5-10.5 H (test code = 775) RED BLOOD CELL COUNT (BEAKER) 2.48 M/ L 4.63-6.08 L (test code = 761) HEMOGLOBIN (BEAKER) (test code = 7.6 GM/DL 13.7-17.5 L 410) HEMATOCRIT (BEAKER) (test code = 25.8 % 40.1-51.0 L 411) MEAN CORPUSCULAR VOLUME (BEAKER) 104.0 fL 79.0-92.2 H (test code = 753) MEAN CORPUSCULAR HEMOGLOBIN 30.6 pg 25.7-32.2 (BEAKER) (test code = 751) MEAN CORPUSCULAR HEMOGLOBIN CONC 29.5 GM/DL 32.3-36.5 L (BEAKER) (test code = 752) RED CELL DISTRIBUTION WIDTH 14.8 % 11.6-14.4 H (BEAKER) (test code = 412) PLATELET COUNT (BEAKER) (test 322 K/CU MM 150-450 code = 756) MEAN PLATELET VOLUME (BEAKER) 10.8 fL 9.4-12.4 (test code = 754) NUCLEATED RED BLOOD CELLS 0 /100 WBC 0-0 (BEAKER) (test code = 413) BASIC METABOLIC [id number] 18:32:30 Test Item Value Reference Range Interpretation Comments SODIUM (BEAKER) 149 meq/L 136-145 H (test code = 381) POTASSIUM (BEAKER) 3.4 meq/L 3.5-5.1 L (test code = 379) CHLORIDE (BEAKER) 113 meq/L 98-107 H (test code = 382) CO2 (BEAKER) (test 32 meq/L 22-29 H code = 355) BLOOD UREA NITROGEN 13 mg/dL 7-21 (BEAKER) (test code = 354) CREATININE (BEAKER) 0.68 mg/dL 0.57-1.25 (test code = 358) GLUCOSE RANDOM 152 mg/dL 70-105 H (BEAKER) (test code = 652) CALCIUM (BEAKER) 9.4 mg/dL 8.4-10.2 (test code = 697) EGFR (BEAKER) (test 118 mL/min/1.73 ESTIM ATED GFR IS code = 1092) sq m NOT ACCURATE CREATININE CLEARANCE IN PREDICTING GLOMERULAR FILTRATION RATE . ESTIMATED GFR I S NOT APPLICABLE FOR DIALYSIS PATIEN TS. Consumer Product Advisor ID - BSBLOOD GAS, [id number] 18:19:57 Test Item Value Reference Range Interpretation Comments PH VENOUS (BEAKER) (test code = 7.42 7.32-7.42 701) PCO2 VENOUS (BEAKER) (test code = 52 mm Hg 41-51 H 755) PO2 VENOUS (BEAKER) (test code = 42 mm Hg 25-40 H 702) O2 SATURATION VENOUS (BEAKER) 77.0 % 40.0-70.0 H (test code = 703) HCO3 VENOUS (BEAKER) (test code = 33 mmol/L 21-29 H 705) BASE EXCESS VENOUS (BEAKER) (test 7.0 mmol/L -2.0-3.0 H code = 704) PATIENT TEMPERATURE (BEAKER) (test 37.0 code = 1818) FIO2 (BEAKER) (test code = 1819) 40.0 CBC (HEMOGRAM ONLY)2021-02-06 18:14:24 Test Item Value Reference Range Interpretation Comments WHITE BLOOD CELL COUNT (BEAKER) 12.8 K/ L 3.5-10.5 H (test code = 775) RED BLOOD CELL COUNT (BEAKER) 2.57 M/ L 4.63-6.08 L (test code = 761) HEMOGLOBIN (BEAKER) (test code = 7.8 GM/DL 13.7-17.5 L 410) HEMATOCRIT (BEAKER) (test code = 26.1 % 40.1-51.0 L 411) MEAN CORPUSCULAR VOLUME (BEAKER) 101.6 fL 79.0-92.2 H (test code = 753) MEAN CORPUSCULAR HEMOGLOBIN 30.4 pg 25.7-32.2 (BEAKER) (test code = 751) MEAN CORPUSCULAR HEMOGLOBIN CONC 29.9 GM/DL 32.3-36.5 L (BEAKER) (test code = 752) RED CELL DISTRIBUTION WIDTH 14.8 % 11.6-14.4 H (BEAKER) (test code = 412) PLATELET COUNT (BEAKER) (test 323 K/CU MM 150-450 code = 756) MEAN PLATELET VOLUME (BEAKER) 11.0 fL 9.4-12.4 (test code = 754) NUCLEATED RED BLOOD CELLS 0 /100 WBC 0-0 (BEAKER) (test code = 413) POCT-GLUCOSE [id number] 15:54:35 Test Item Value Reference Range Interpretation Comments POC-GLUCOSE METER 138 mg/dL 70-110 H : TESTED A T [facility] 6720 (BEAKER) (test code = [facility], 1538) [address]: Consumer Product Advisor/Techni bobby ID = [id number] for IB RAHIM, [place] POCT-GLUCOSE [id number] 11:50:36 Test Item Value Reference Range Interpretation Comments POC-GLUCOSE METER 150 mg/dL 70-110 H : TESTED A T [facility] 6720 (BEAKER) (test code = [facility], 1538) [address]: Consumer Product Advisor/Techni bobby ID = [id number] for IB RAHIM, [place] POCT-GLUCOSE [id number] 07:58:49 Test Item Value Reference Range Interpretation Comments POC-GLUCOSE METER 151 mg/dL 70-110 H : TESTED A T [facility] 6720 (BEAKER) (test code = [facility], 1538) [address]01: Consumer Product Advisor/Techni bobby ID = [id number] for IB RAHIM, SERKALEM RAD, CHEST, 1 VIEW, NON [id number] 07:15:00Reason for exam:- >IntubateReason for exam:->Chest tubes placementShould this be performed at the bedside?->Yes [facility] VASU SPAULDING : 1960 Sex: MFINAL REPORT RAD, CHEST, 1 VIEW, NON DEPT INDICATION: IntubateChest tubes placement COMPARISON: Prior day's exam FINDINGS: Portable frontal view of the chest. IMPRESSION: Support Lines: Pigtail catheter has been applied on the left hemithorax. Remaining support hardware is stable. Lungs and pleura: Improved effusion on the left. Scattered interstitial changes and subsegmental atelectasis bilaterally. No pneumothorax.Heart and mediastinum: Stable contours. Additional findings: None. Signed:JR Rodriguez Robert MDReport Verified Date/Time: 02/06/2021 07:15:27 Reading Location: [facility] Reading Room [id number] 06:06:45 Test Item Value Reference Range Interpretation Comments PHOSPHORUS (BEAKER) (test code = 2.4 mg/dL 2.3-4.7 604) Consumer Product Advisor ID - REANNA [id number] 06:06:44 Test Item Value Reference Range Interpretation Comments MAGNESIUM (BEAKER) (test code = 1.7 mg/dL 1.6-2.6 627) Consumer Product Advisor ID - PIAYA LCOMPREHENSIVE METABOLIC [id number] 06:06:43 Test Item Value Reference Range Interpretation Comments TOTAL PROTEIN 5.4 gm/dL 6.0-8.3 L (BEAKER) (test code = 770) ALBUMIN (BEAKER) 2.1 g/dL 3.5-5.0 L (test code = 1145) ALKALINE PHOSPHATASE 41 U/L 40-150 (BEAKER) (test code = 346) BILIRUBIN TOTAL 0.5 mg/dL 0.2-1.2 (BEAKER) (test code = 377) SODIUM (BEAKER) (test 150 meq/L 136-145 H code = 381) POTASSIUM (BEAKER) 3.3 meq/L 3.5-5.1 L (test code = 379) CHLORIDE (BEAKER) 116 meq/L 98-107 H (test code = 382) CO2 (BEAKER) (test 29 meq/L 22-29 code = 355) BLOOD UREA NITROGEN 14 mg/dL 7-21 (BEAKER) (test code = 354) CREATININE (BEAKER) 0.60 mg/dL 0.57-1.25 (test code = 358) GLUCOSE RANDOM 167 mg/dL 70-105 H (BEAKER) (test code = 652) CALCIUM (BEAKER) 9.3 mg/dL 8.4-10.2 (test code = 697) AST (SGOT) (BEAKER) 41 U/L 5-34 H (test code = 353) ALT (SGPT) (BEAKER) 19 U/L 6-55 (test code = 347) EGFR (BEAKER) (test 136 ESTIMATE D GFR IS code = 1092) mL/min/1.73 sq NOT ACCURA TE m CREATININE CLEARANCE IN PREDICTING GLOMERULAR FILTRATION RATE . ESTIMATED GFR I S NOT APPLICABLE FOR DIALYSIS PATIEN TS. Consumer Product Advisor ID - PIAYA LPROTHROMBIN TIME/[id number] 05:10:54 Test Item Value Reference Range Interpretation Comments PROTIME (BEAKER) 14.6 seconds 11.9-14.2 H (test code = 759) INR (BEAKER) (test 1.16 See_Comment [Automat ed message] code = 370) The system [employer] generated this result transmitted ref erence range: <=5.90. The reference range was not used to int erpret this result as normal/abnormal . RECOMMENDED COUMADIN/WARFARIN INR THERAPY RANGESSTANDARD DOSE: 2.0 - 3.0 Includes: PROPHYLAXIS for venous thrombosis, systemic embolization; TREATMENT for venous thrombosis and/or pulmonary embolus.HIGH RISK: Target INR is 2.5-3.5 for patients with mechanical heart valves.CBC W/PLT COUNT & AUTO [id number] 05:02:27 Test Item Value Reference Range Interpretation Comments WHITE BLOOD CELL COUNT 12.0 K/ L 3.5-10.5 H (BEAKER) (test code = 775) RED BLOOD CELL COUNT 2.50 M/ L 4.63-6.08 L (BEAKER) (test code = 761) HEMOGLOBIN (BEAKER) 7.7 GM/DL 13.7-17.5 L (test code = 410) HEMATOCRIT (BEAKER) 25.8 % 40.1-51.0 L (test code = 411) MEAN CORPUSCULAR 103.2 fL 79.0-92.2 H Discordant MCV VOLUME (BEAKER) (test result s compared to code = 753) previous result s; clinical correl ation required. MEAN CORPUSCULAR 30.8 pg 25.7-32.2 HEMOGLOBIN (BEAKER) (test code = 751) MEAN CORPUSCULAR 29.8 GM/DL 32.3-36.5 L HEMOGLOBIN CONC (BEAKER) (test code = 752) RED CELL DISTRIBUTION 15.2 % 11.6-14.4 H WIDTH (BEAKER) (test code = 412) PLATELET COUNT 299 K/CU MM 150-450 (BEAKER) (test code = 756) MEAN PLATELET VOLUME 10.9 fL 9.4-12.4 (BEAKER) (test code = 754) NUCLEATED RED BLOOD 0 /100 WBC 0-0 CELLS (BEAKER) (test code = 413) NEUTROPHILS RELATIVE 74 % PERCENT (BEAKER) (test code = 429) LYMPHOCYTES RELATIVE 19 % PERCENT (BEAKER) (test code = 430) MONOCYTES RELATIVE 4 % PERCENT (BEAKER) (test code = 431) EOSINOPHILS RELATIVE 2 % PERCENT (BEAKER) (test code = 432) BASOPHILS RELATIVE 0 % PERCENT (BEAKER) (test code = 437) NEUTROPHILS ABSOLUTE 8.80 K/ L 1.78-5.38 H COUNT (BEAKER) (test code = 670) LYMPHOCYTES ABSOLUTE 2.30 K/ L 1.32-3.57 COUNT (BEAKER) (test code = 414) MONOCYTES ABSOLUTE 0.45 K/ L 0.30-0.82 COUNT (BEAKER) (test code = 415) EOSINOPHILS ABSOLUTE 0.25 K/ L 0.04-0.54 COUNT (BEAKER) (test code = 416) BASOPHILS ABSOLUTE 0.03 K/ L 0.01-0.08 COUNT (BEAKER) (test code = 417) IMMATURE 1 % 0-1 GRANULOCYTES-RELATIVE PERCENT (BEAKER) (test code = 2801) CALCIUM, [id number] 04:46:29 Test Item Value Reference Range Interpretation Comments CALCIUM IONIZED (BEAKER) (test 1.28 mmol/L 1.12-1.27 H code = 698) PH, BLOOD (BEAKER) (test code = 7.45 1810) BLOOD GAS, [id number] 04:46:26 Test Item Value Reference Range Interpretation Comments PH VENOUS (BEAKER) (test code = 7.45 7.32-7.42 H 701) PCO2 VENOUS (BEAKER) (test code = 46 mm Hg 41-51 755) PO2 VENOUS (BEAKER) (test code = 46 mm Hg 25-40 H 702) O2 SATURATION VENOUS (BEAKER) 84.0 % 40.0-70.0 H (test code = 703) HCO3 VENOUS (BEAKER) (test code = 31 mmol/L 21-29 H 705) BASE EXCESS VENOUS (BEAKER) (test 6.7 mmol/L -2.0-3.0 H code = 704) PATIENT TEMPERATURE (BEAKER) (test 37.0 code = 1818) FIO2 (BEAKER) (test code = 1819) 40.0 RAD, ABDOMEN/KUB, 1 VIEW [id number] 22:21:00Reason for exam:->NG/OG placementShould this be performed at the bedside?->Yes [facility] : 1960 Sex: MFINAL REPORT Abdomen one view Comparison: Abdominal radiograph 02/01/2021. Reason for exam: NG/OG placement Findings: Supine view of the abdomen demonstrates an enteric tube with tip in the proximal gastric body however the side hole is at the GE junction and therefore requires advancement. There is no bowel obstruction. There are multiple left-sided chest tubes. There is a retrocardiac opacity suspicious for pneumonia. There is a small left pneumothorax. There is subcutaneous emphysema inthe left chest wall. Signed: Cameron Baptiste MDReport Verified Date/Time: 02/05/2021 22:21:19 CBC (HEMOGRAM ONLY) 2021-02-05 21:15:01 Test Item Value Reference Range Interpretation Comments WHITE BLOOD CELL COUNT (BEAKER) 12.4 K/ L 3.5-10.5 H (test code = 775) RED BLOOD CELL COUNT (BEAKER) 2.51 M/ L 4.63-6.08 L (test code = 761) HEMOGLOBIN (BEAKER) (test code = 7.8 GM/DL 13.7-17.5 L 410) HEMATOCRIT (BEAKER) (test code = 27.0 % 40.1-51.0 L 411) MEAN CORPUSCULAR VOLUME (BEAKER) 107.6 fL 79.0-92.2 H (test code = 753) MEAN CORPUSCULAR HEMOGLOBIN 31.1 pg 25.7-32.2 (BEAKER) (test code = 751) MEAN CORPUSCULAR HEMOGLOBIN CONC 28.9 GM/DL 32.3-36.5 L (BEAKER) (test code = 752) RED CELL DISTRIBUTION WIDTH 15.3 % 11.6-14.4 H (BEAKER) (test code = 412) PLATELET COUNT (BEAKER) (test 307 K/CU MM 150-450 code = 756) MEAN PLATELET VOLUME (BEAKER) 10.6 fL 9.4-12.4 (test code = 754) NUCLEATED RED BLOOD CELLS 0 /100 WBC 0-0 (BEAKER) (test code = 413) BASIC METABOLIC [id number] 17:20:18 Test Item Value Reference Range Interpretation Comments SODIUM (BEAKER) 152 meq/L 136-145 H (test code = 381) POTASSIUM (BEAKER) 3.8 meq/L 3.5-5.1 (test code = 379) CHLORIDE (BEAKER) 118 meq/L 98-107 H (test code = 382) CO2 (BEAKER) (test 33 meq/L 22-29 H code = 355) BLOOD UREA NITROGEN 15 mg/dL 7-21 (BEAKER) (test code = 354) CREATININE (BEAKER) 0.65 mg/dL 0.57-1.25 (test code = 358) GLUCOSE RANDOM 190 mg/dL 70-105 H (BEAKER) (test code = 652) CALCIUM (BEAKER) 9.3 mg/dL 8.4-10.2 (test code = 697) EGFR (BEAKER) (test 124 mL/min/1.73 ESTIM ATED GFR IS code = 1092) sq m NOT ACCURATE CREATININE CLEARANCE IN PREDICTING GLOMERULAR FILTRATION RATE . ESTIMATED GFR I S NOT APPLICABLE FOR DIALYSIS PATIEN TS. Consumer Product Advisor ID - DBPOCT-GLUCOSE [id number] 17:19:01 Test Item Value Reference Range Interpretation Comments POC-GLUCOSE METER 168 mg/dL 70-110 H : TESTED A T [facility] 6720 (BEAKER) (test code = [facility], 153) [address]: Consumer Product Advisor/Techni bobby ID = [id number] for Desiree garber (contract), Reina xis BLOOD GAS, [id number] 17:01:00 Test Item Value Reference Range Interpretation Comments PH VENOUS (BEAKER) (test code = 7.32 7.32-7.42 701) PCO2 VENOUS (BEAKER) (test code = 34 mm Hg 41-51 L 755) PO2 VENOUS (BEAKER) (test code = 79 mm Hg 25-40 H 702) O2 SATURATION VENOUS (BEAKER) 95.2 % 40.0-70.0 H (test code = 703) HCO3 VENOUS (BEAKER) (test code = 17 mmol/L 21-29 L 705) BASE EXCESS VENOUS (BEAKER) (test -8.1 mmol/L -2.0-3.0 L code = 704) PATIENT TEMPERATURE (BEAKER) 36.6 (test code = 1818) FIO2 (BEAKER) (test code = 1819) 70.0 POCT-GLUCOSE [id number] 15:40:17 Test Item Value Reference Range Interpretation Comments POC-GLUCOSE METER 136 mg/dL 70-110 H : TESTED A T [facility] 6720 (BEAKER) (test code = [facility], 1538) [address]: Consumer Product Advisor/Techni bobby ID = [id number] for IB RAHIM, [place] RAD, CHEST, 1 VIEW, NON [id number] 14:36:00Reason for exam:->s/p intubatedShould this be performed at the bedside?->Yes [facility] : 1960 Sex: MFINAL REPORT RAD, CHEST, 1 VIEW, NON DEPT INDICATION: s/p intubated COMPARISON: Prior day's exam FINDINGS: Portable frontal view of the chest. IMPRESSION: Support Lines: Stable. Lungs and pleura: Unchanged airspace and pleural opacities. No pneumothorax.Heart and mediastinum: Stable contours. Additional findings: None. Signed: JR Rodriguez Robert MDReport Verified Date/Time: 114:36:19 Reading Location: [facility] Radiology Reading Room CBC (HEMOGRAM ONLY)2021-02-05 14:02:44 Test Item Value Reference Range Interpretation Comments WHITE BLOOD CELL COUNT (BEAKER) 12.8 K/ L 3.5-10.5 H (test code = 775) RED BLOOD CELL COUNT (BEAKER) 2.39 M/ L 4.63-6.08 L (test code = 761) HEMOGLOBIN (BEAKER) (test code = 7.4 GM/DL 13.7-17.5 L 410) HEMATOCRIT (BEAKER) (test code = 25.7 % 40.1-51.0 L 411) MEAN CORPUSCULAR VOLUME (BEAKER) 107.5 fL 79.0-92.2 H (test code = 753) MEAN CORPUSCULAR HEMOGLOBIN 31.0 pg 25.7-32.2 (BEAKER) (test code = 751) MEAN CORPUSCULAR HEMOGLOBIN CONC 28.8 GM/DL 32.3-36.5 L (BEAKER) (test code = 752) RED CELL DISTRIBUTION WIDTH 15.4 % 11.6-14.4 H (BEAKER) (test code = 412) PLATELET COUNT (BEAKER) (test 291 K/CU MM 150-450 code = 756) MEAN PLATELET VOLUME (BEAKER) 10.3 fL 9.4-12.4 (test code = 754) NUCLEATED RED BLOOD CELLS 0 /100 WBC 0-0 (BEAKER) (test code = 413) POCT-GLUCOSE [id number] 11:15:51 Test Item Value Reference Range Interpretation Comments POC-GLUCOSE METER 184 mg/dL 70-110 H : TESTED A T [facility] 6720 (BEAKER) (test code = [facility], 1538) [address]: Consumer Product Advisor/Techni bobby ID = [id number] for AMNA BERKOWITZ BLOOD [id number] 10:34:11 Test Item Value Reference Range Interpretation Comments CULTURE (BEAKER) A From Aerobi c Bottle (test code = Only Same organ ism has 1095) been isolated f rom cultures(s) of the same body site and collection date . Repeat identifi cation and susceptibil ity testing perform ed only after consultat ion with the [facility] microbiology laboratory.Refe r to previous cultur e ofCandida albic ans GRAM STAIN From aerobic RESULT (BEAKER) bottle only: (test code = yeast 1123) The specimen volume collected for this blood culture was below the optimum (10 mL per bottle or 20 mL total). Use of lower volumes may adversely affect recovery and/or detection times of some organisms.BLOOD [id number] 10:33:47 Test Item Value Reference Range Interpretation Comments CULTURE (BEAKER) JANETH A From Aerobi c Bottle (test code = 1095) ALBICANS Only Cand melanie albicans 5-Flurocytosine See_Comment S [Automated message] (test code = 237) The system which generated this result transmitted ref erence range: Suscepti ble 0-4 , Intermedi ate <0 or >4 , Resista nt >16 . The reference range was not used to interpret this result as normal/abnor mal. Amphotericin B See_Comment [Automated m essage] (test code = 136) The system which generated this result transmitted ref erence range: Suscepti ble >0-0 , No Interpretations Established <=0 or >0 . The reference range was not used to interpret this result as normal/abnor mal. Caspofungin acetate See_Comment S [Automa tuyet message] (test code = 141) The system which generated this result transmitted ref erence range: Suscepti ble 0-0.25 , Non-susceptible <0 or >.25 , Resistan t . The reference r raffaele was not used to interpret this result as normal/abnor mal. Fluconazole (test See_Comment S [Automate d message] code = 143) The system [employer] generated this result transmitted ref erence range: Suscepti ble 0-2 , Dose Depe ndent Susceptible <0 or >2 , Resi. The ref erence range was not u sed to interpret this result as normal/abnor mal. Itraconazole (test See_Comment S [Automat ed message] code = 146) The system [employer] generated this result transmitted ref erence range: Suscepti ble 0-0.125 , Dose Dependent Susce ptible <0 or >.125. Th e reference range was not used to int erpret this result as normal/abnormal . Micafungin (test See_Comment S [Automated message] code = 148) The system [employer] generated this result transmitted ref erence range: Suscepti ble 0-0.25 , Non-susceptible <0 or >.25 , Resistan t . The reference r raffaele was not used to interpret this result as normal/abnor mal. Posaconazole (test See_Comment [Automat ed message] code = 152) The system [employer] generated this result transmitted ref erence range: Suscepti ble >0-0 , No Interpretations Established <=0 or >0 . The reference range was not used to interpret this result as normal/abnor mal. Voriconazole (test See_Comment S [Automat ed message] code = 153) The system [employer] generated this result transmitted ref erence range: Suscepti ble 0-0.12 , Dose Dependent Susce ptible <0 or >.12 ,. T he reference range was not used to int erpret this result as normal/abnormal . GRAM STAIN RESULT From aerobic (BEAKER) (test code bottle only: = 1123) yeast POCT-GLUCOSE [id number] 09:39:35 Test Item Value Reference Range Interpretation Comments POC-GLUCOSE METER 178 mg/dL 70-110 H : TESTED A T [facility] 6720 (BEAKER) (test code = [facility], 1538) [address]: Consumer Product Advisor/Techni bobby ID = [id number] for Desiree garber (contract), Reina xiabram Wound culture + gram [id number] 09:19:12 Test Item Value Reference Range Interpretation Comments Result (test code = 6463-4) No growth Gram Stain Result (test No organisms seen code = 1123) [facility] [id number] 09:19:12 Test Item Value Reference Range Interpretation Comments CULTURE (BEAKER) (test No growth code = 1095) GRAM STAIN RESULT 2+ White blood cells (BEAKER) (test code = seen 1123) GRAM STAIN RESULT No organisms seen (BEAKER) (test code = 23791) SARS-COV2/RT-PCR ([facility])2021-02-05 05:39:22 Test Item Value Reference Range Interpretation Comments SARS-COV2/RT-PCR Negative Negative The SARS-Co V-2 target (test code = nucleic acids a re not [id number]) detected in thi s specimen. Negative result s do not preclude SARS-C oV-2 infection and s hould not be used as the soheila e basis for patient managem ent decisions. Nega tive results must be combine d with clinical observ ations, patient history , and epidemiological information. A false negativ e result may occur if a spec imen is improperly kelin ected, transported or handled. This SARS CoV-2 test is a rapid, real-time RT-PC R test intended for th e qualitative detection of nu cleic acid from SARS-CoV-2 in a nasopharyngeal swab specimen collected from individuals suspected of CO VID-19 by their healthcar e provider. This test has been authorized by FDA under an EUA for use by authorized laboratories. This test is only authorized for the duration of the declaration that circumstances exist justifying the authorization of emergency use of in vitro diagnostic tests for detection and/or diagnosis of COVID-19 under Section 564(b)(1) of the Federal Food, Drug and Cosmetic Act, 21 U.S.C. 360bbb-3(b)(1), unless the authorization is terminated or revoked sooner. Fact Sheet for Healthcare Providers: https://www.[employer]/Documents/Xpert%20Xpress%20SARS%20CoV-2/Fact%20Sheets/302-3802%35FDGY-DKL-0%2 0HEALTHCARE%20PROVIDERS%20FACT%20SHEET.pdf Fact Sheet for Healthcare Patients: https://www.[facility] [facility]/Documents/Xpert%20X press%20SARS%20CoV-2/Fact%20Sheets/302-3801%10FYAW-TQB-6%20PATIENT%20FACT%20SHEE T.pdfPOCT-GLUCOSE [id number] 04:42:38 Test Item Value Reference Range Interpretation Comments POC-GLUCOSE METER 196 mg/dL 70-110 H : TESTED A T [facility] 6720 (BEAKER) (test code = [facility], 1538) [address]: Consumer Product Advisor/Techni bobby ID = [id number] for Guru Cherry [id number] 04:35:17 Test Item Value Reference Interpretation Comments Range Protime (test code = 14.9 See_Comment H [Autom ated 5902-2) message] The system which generated this result transmitted reference range : 11.9 - 14.2 seconds. The reference range was not used to interpret this result as normal/abnormal . INR (test code = 1.19 See_Comment [Automated 4827-6) message] The system which generated this result transmitted reference range : <=5.90. The reference range was not used to interpret this result as normal/abnormal . PTT (test code = 33.4 See_Comment [Automated 61720-9) message] The system which generated this result transmitted reference range : 22.5 - 36.0 seconds. The reference range was not used to interpret this result as normal/abnormal . RUTHIE (test code = RECOMMENDED RUTHIE) COUMADIN/WARFARIN INR THERAPY RANGESSTANDARD DOSE: 2.0 - 3.0 Includes: PROPHYLAXIS for venous thrombosis, systemic embolization; TREATMENT for venous thrombosis and/or pulmonary embolus.HIGH RISK: Target INR is 2.5-3.5 for patients with mechanical heart valves. Lab Interpretation Abnormal (test code = 82628-0) [facility] Center[facility]/[id number] 04:35:17 Test Item Value Reference Range Interpretation Comments PROTIME (BEAKER) (test 14.9 seconds 11.9-14.2 H code = 759) INR (BEAKER) (test 1.19 See_Comment [Automat ed code = 370) message] The sy stem which generated this result transmitted reference range : <=5.90. The reference range was not used to interpret this result as normal/abnormal . PARTIAL THROMBOPLASTIN 33.4 seconds 22.5-36.0 TIME (BEAKER) (test code = 760) RECOMMENDED COUMADIN/WARFARIN INR THERAPY RANGESSTANDARD DOSE: 2.0 - 3.0 Includes: PROPHYLAXIS for venous thrombosis, systemic embolization; TREATMENT for venous thrombosis and/or pulmonary embolus.HIGH RISK: Target INR is 2.5-3.5 for patients with mechanical heart valves.PROTHROMBIN [id number] 04:34:38 Test Item Value Reference Range Interpretation Comments PROTIME (BEAKER) 14.9 seconds 11.9-14.2 H (test code = 759) INR (BEAKER) (test 1.19 See_Comment [Automat ed message] code = 370) The system [employer] h generated this result transmitted ref erence range: <=5.90. The reference range was not used to int erpret this result as normal/abnormal . RECOMMENDED COUMADIN/WARFARIN INR THERAPY RANGESSTANDARD DOSE: 2.0 - 3.0 Includes: PROPHYLAXIS for venous thrombosis, systemic embolization; TREATMENT for venous thrombosis and/or pulmonary embolus.HIGH RISK: Target INR is 2.5-3.5 for patients with mechanical heart valves.[id number] 04:33:58 Test Item Value Reference Range Interpretation Comments PHOSPHORUS (BEAKER) (test code = 1.9 mg/dL 2.3-4.7 L 604) Consumer Product Advisor ID - [id number] 04:33:57 Test Item Value Reference Range Interpretation Comments MAGNESIUM (BEAKER) (test code = 1.9 mg/dL 1.6-2.6 627) Consumer Product Advisor ID - DBCOMPREHENSIVE METABOLIC [id number] 04:33:56 Test Item Value Reference Range Interpretation Comments TOTAL PROTEIN 5.4 gm/dL 6.0-8.3 L (BEAKER) (test code = 770) ALBUMIN (BEAKER) 2.4 g/dL 3.5-5.0 L (test code = 1145) ALKALINE PHOSPHATASE 43 U/L 40-150 (BEAKER) (test code = 346) BILIRUBIN TOTAL 0.4 mg/dL 0.2-1.2 (BEAKER) (test code = 377) SODIUM (BEAKER) (test 152 meq/L 136-145 H code = 381) POTASSIUM (BEAKER) 3.7 meq/L 3.5-5.1 (test code = 379) CHLORIDE (BEAKER) 118 meq/L 98-107 H (test code = 382) CO2 (BEAKER) (test 31 meq/L 22-29 H code = 355) BLOOD UREA NITROGEN 18 mg/dL 7-21 (BEAKER) (test code = 354) CREATININE (BEAKER) 0.66 mg/dL 0.57-1.25 (test code = 358) GLUCOSE RANDOM 198 mg/dL 70-105 H (BEAKER) (test code = 652) CALCIUM (BEAKER) 9.3 mg/dL 8.4-10.2 (test code = 697) AST (SGOT) (BEAKER) 40 U/L 5-34 H (test code = 353) ALT (SGPT) (BEAKER) 22 U/L 6-55 (test code = 347) EGFR (BEAKER) (test 122 ESTIMATE D GFR IS code = 1092) mL/min/1.73 sq NOT ACCURA TE m CREATININE CLEARANCE IN PREDICTING GLOMERULAR FILTRATION RATE . ESTIMATED GFR I S NOT APPLICABLE FOR DIALYSIS PATIEN TS. Consumer Product Advisor ID - DBCBC W/PLT COUNT & AUTO [id number] 04:21:40 Test Item Value Reference Range Interpretation Comments WHITE BLOOD CELL COUNT (BEAKER) 14.7 K/ L 3.5-10.5 H (test code = 775) RED BLOOD CELL COUNT (BEAKER) 2.50 M/ L 4.63-6.08 L (test code = 761) HEMOGLOBIN (BEAKER) (test code = 7.7 GM/DL 13.7-17.5 L 410) HEMATOCRIT (BEAKER) (test code = 26.2 % 40.1-51.0 L 411) MEAN CORPUSCULAR VOLUME (BEAKER) 104.8 fL 79.0-92.2 H (test code = 753) MEAN CORPUSCULAR HEMOGLOBIN 30.8 pg 25.7-32.2 (BEAKER) (test code = 751) MEAN CORPUSCULAR HEMOGLOBIN CONC 29.4 GM/DL 32.3-36.5 L (BEAKER) (test code = 752) RED CELL DISTRIBUTION WIDTH 15.7 % 11.6-14.4 H (BEAKER) (test code = 412) PLATELET COUNT (BEAKER) (test 333 K/CU MM 150-450 code = 756) MEAN PLATELET VOLUME (BEAKER) 10.7 fL 9.4-12.4 (test code = 754) NUCLEATED RED BLOOD CELLS 0 /100 WBC 0-0 (BEAKER) (test code = 413) NEUTROPHILS RELATIVE PERCENT 79 % (BEAKER) (test code = 429) LYMPHOCYTES RELATIVE PERCENT 14 % (BEAKER) (test code = 430) MONOCYTES RELATIVE PERCENT 4 % (BEAKER) (test code = 431) EOSINOPHILS RELATIVE PERCENT 1 % (BEAKER) (test code = 432) BASOPHILS RELATIVE PERCENT 0 % (BEAKER) (test code = 437) NEUTROPHILS ABSOLUTE COUNT 11.54 K/ L 1.78-5.38 H (BEAKER) (test code = 670) LYMPHOCYTES ABSOLUTE COUNT 2.10 K/ L 1.32-3.57 (BEAKER) (test code = 414) MONOCYTES ABSOLUTE COUNT (BEAKER) 0.52 K/ L 0.30-0.82 (test code = 415) EOSINOPHILS ABSOLUTE COUNT 0.17 K/ L 0.04-0.54 (BEAKER) (test code = 416) BASOPHILS ABSOLUTE COUNT (BEAKER) 0.04 K/ L 0.01-0.08 (test code = 417) IMMATURE GRANULOCYTES-RELATIVE 2 % 0-1 H PERCENT (BEAKER) (test code = 2801) BLOOD GAS, [id number] 04:03:15 Test Item Value Reference Range Interpretation Comments PH VENOUS (BEAKER) (test code = 7.39 7.32-7.42 701) PCO2 VENOUS (BEAKER) (test code = 53 mm Hg 41-51 H 755) PO2 VENOUS (BEAKER) (test code = 64 mm Hg 25-40 H 702) O2 SATURATION VENOUS (BEAKER) 92.1 % 40.0-70.0 H (test code = 703) HCO3 VENOUS (BEAKER) (test code = 32 mmol/L 21-29 H 705) BASE EXCESS VENOUS (BEAKER) (test 6.0 mmol/L -2.0-3.0 H code = 704) PATIENT TEMPERATURE (BEAKER) (test 37.0 code = 1818) FIO2 (BEAKER) (test code = 1819) 40.0 CALCIUM, [id number] 04:03:14 Test Item Value Reference Range Interpretation Comments CALCIUM IONIZED (BEAKER) (test 1.29 mmol/L 1.12-1.27 H code = 698) PH, BLOOD (BEAKER) (test code = 7.39 1810) POCT-GLUCOSE [id number] 00:43:51 Test Item Value Reference Range Interpretation Comments POC-GLUCOSE METER 180 mg/dL 70-110 H : TESTED A T [facility] 6720 (BEAKER) (test code = [facility] [place], 1538) [address]: Consumer Product Advisor/Techni bobby ID = [id number] for Col Jo [place] Prepare Leuko-Red [id number] 23:54:00 Test Item Value Reference Range Interpretation Comments CROSSMATCH (test code = 2264) COMPATIBLE Unit ABO (test code = O Neg [id number]) UNIT NUMBER (test code = [id number] 934-0) Status (test code = 7652863) TX_TIMEINCHART Blood Bank Product (test code RED BLOOD CELLS = 2263) PRODUCT CODE (test code = [id number] 933-2) [facility] 19:47:03 Test Item Value Reference Range Interpretation Comments WHITE BLOOD CELL COUNT (BEAKER) 15.0 K/ L 3.5-10.5 H (test code = 775) RED BLOOD CELL COUNT (BEAKER) 2.53 M/ L 4.63-6.08 L (test code = 761) HEMOGLOBIN (BEAKER) (test code = 7.8 GM/DL 13.7-17.5 L 410) HEMATOCRIT (BEAKER) (test code = 26.7 % 40.1-51.0 L 411) MEAN CORPUSCULAR VOLUME (BEAKER) 105.5 fL 79.0-92.2 H (test code = 753) MEAN CORPUSCULAR HEMOGLOBIN 30.8 pg 25.7-32.2 (BEAKER) (test code = 751) MEAN CORPUSCULAR HEMOGLOBIN CONC 29.2 GM/DL 32.3-36.5 L (BEAKER) (test code = 752) RED CELL DISTRIBUTION WIDTH 15.7 % 11.6-14.4 H (BEAKER) (test code = 412) PLATELET COUNT (BEAKER) (test 326 K/CU MM 150-450 code = 756) MEAN PLATELET VOLUME (BEAKER) 10.6 fL 9.4-12.4 (test code = 754) NUCLEATED RED BLOOD CELLS 0 /100 WBC 0-0 (BEAKER) (test code = 413) BASIC METABOLIC [id number] 17:01:34 Test Item Value Reference Range Interpretation Comments SODIUM (BEAKER) 154 meq/L 136-145 H (test code = 381) POTASSIUM (BEAKER) 4.1 meq/L 3.5-5.1 (test code = 379) CHLORIDE (BEAKER) 120 meq/L 98-107 H (test code = 382) CO2 (BEAKER) (test 30 meq/L 22-29 H code = 355) BLOOD UREA NITROGEN 21 mg/dL 7-21 (BEAKER) (test code = 354) CREATININE (BEAKER) 0.70 mg/dL 0.57-1.25 (test code = 358) GLUCOSE RANDOM 177 mg/dL 70-105 H (BEAKER) (test code = 652) CALCIUM (BEAKER) 9.1 mg/dL 8.4-10.2 (test code = 697) EGFR (BEAKER) (test 114 mL/min/1.73 ESTIM ATED GFR IS code = 1092) sq m NOT ACCURATE CREATININE CLEARANCE IN PREDICTING GLOMERULAR FILTRATION RATE . ESTIMATED GFR I S NOT APPLICABLE FOR DIALYSIS PATIEN TS. Consumer Product Advisor ID - DBBLOOD GAS, [id number] 16:56:59 Test Item Value Reference Range Interpretation Comments PH VENOUS (BEAKER) (test code = 7.38 7.32-7.42 701) PCO2 VENOUS (BEAKER) (test code = 55 mm Hg 41-51 H 755) PO2 VENOUS (BEAKER) (test code = 48 mm Hg 25-40 H 702) O2 SATURATION VENOUS (BEAKER) 82.4 % 40.0-70.0 H (test code = 703) HCO3 VENOUS (BEAKER) (test code = 32 mmol/L 21-29 H 705) BASE EXCESS VENOUS (BEAKER) (test 6.0 mmol/L -2.0-3.0 H code = 704) PATIENT TEMPERATURE (BEAKER) (test 37.0 code = 1818) FIO2 (BEAKER) (test code = 1819) 40.0 CT, LIMITED/LOCALIZED [id number] 16:00:00Reason for exam:->IR guided chest abscess drainage [facility]ING : 1960 Sex: MFINAL REPORT TECHNIQUE: CT scan of the chest WITHOUT intravenous contrast. Dose modulation, iterative reconstruction, and/or weight-based adjustment of the mA/kV was utilized to reduce the radiation dose to as low as reasonably achievable. INDICATION: IR guided chest abscess drainage. COMPARISON: Chest CT from 02/03/2021. FINDINGS: A NG tube is incompletely visualized but likely has its tipover the gastric body. The residual, loculated effusion in the left anterior and medial chest is unchanged. The left medial basal loculated effusion is unchanged. The small right pleural effusion is unchanged. The collapse of the left lung with additional, patchy opacity is unchanged. To 3 left chest tubes are unchanged in position. Debris in the mainstem bronchus. The endotracheal tube is above the clavicles and above the calvin. Upon the patient on the table, with marked in the patient for needle placement, the patient repeatedly tried to sit up during the examination in spite of increasing the am ount of sedation. IMPRESSION: This chest CT is essentially unchanged from the chest CT yesterday. Anattempt was made at chest tube placement. However, in preparation, the patient continued to sit up despite increasing sedation. A repeat attempt can be attempted once the patient is sedated to the point to where he is able to lie still during the procedure. Signed: Jose Bright MDReport Verified Date/Time: 02/04/2021 16:00:04 Reading Location: [address] Body Reading Room -GLUCOSE [id number] 15:20:20 Test Item Value Reference Range Interpretation Comments POC-GLUCOSE METER 137 mg/dL 70-110 H : TESTED A T [facility] 6720 (BEAKER) (test code = [facility], 1538) [address]: Consumer Product Advisor/Techni bobby ID = [id number] for DOMENICO BRYANT CBC (HEMOGRAM ONLY)2021-02-04 14:52:18 Test Item Value Reference Range Interpretation Comments WHITE BLOOD CELL COUNT (BEAKER) 13.4 K/ L 3.5-10.5 H (test code = 775) RED BLOOD CELL COUNT (BEAKER) 2.47 M/ L 4.63-6.08 L (test code = 761) HEMOGLOBIN (BEAKER) (test code = 7.7 GM/DL 13.7-17.5 L 410) HEMATOCRIT (BEAKER) (test code = 25.7 % 40.1-51.0 L 411) MEAN CORPUSCULAR VOLUME (BEAKER) 104.0 fL 79.0-92.2 H (test code = 753) MEAN CORPUSCULAR HEMOGLOBIN 31.2 pg 25.7-32.2 (BEAKER) (test code = 751) MEAN CORPUSCULAR HEMOGLOBIN CONC 30.0 GM/DL 32.3-36.5 L (BEAKER) (test code = 752) RED CELL DISTRIBUTION WIDTH 15.6 % 11.6-14.4 H (BEAKER) (test code = 412) PLATELET COUNT (BEAKER) (test 322 K/CU MM 150-450 code = 756) MEAN PLATELET VOLUME (BEAKER) 11.0 fL 9.4-12.4 (test code = 754) NUCLEATED RED BLOOD CELLS 0 /100 WBC 0-0 (BEAKER) (test code = 413) Body fluid culture + gram [id number] 13:07:02 Test Item Value Reference Range Interpretation Comments Result (test code = 6463-4) No growth Gram Stain Result (test No organisms seen code = 1123) [facility] C[facility] + GRAM [id number] 13:07:02 Test Item Value Reference Range Interpretation Comments CULTURE (BEAKER) (test code No growth = 1095) GRAM STAIN RESULT (BEAKER) 1+ WBCs (test code = 1123) GRAM STAIN RESULT (BEAKER) No organisms seen (test code = 30723) (CELLAVISION MANUAL DIFF)2021-02-04 07:23:44 Test Item Value Reference Range Interpretation Comments NEUTROPHILS - REL 88 % (CELLAVISION)(BEAKER) (test code = 2816) LYMPHOCYTES - REL 4 % (CELLAVISION)(BEAKER) (test code = 2817) MONOCYTES - REL 2 % (CELLAVISION)(BEAKER) (test code = 2818) EOSINOPHILS - REL 1 % (CELLAVISION)(BEAKER) (test code = 2819) BASOPHILS - REL 3 % (CELLAVISION)(BEAKER) (test code = 2820) BANDS - REL (CELLAVISION)(BEAKER) 2 % 0-10 (test code = 2826) NEUTROPHILS - ABS 16.72 K/ul 1.78-5.38 H (CELLAVISION)(BEAKER) (test code = 2830) LYMPHOCYTES - ABS 0.76 K/ul 1.32-3.57 L (CELLAVISION)(BEAKER) (test code = 2831) MONOCYTES - ABS 0.38 K/uL 0.30-0.82 (CELLAVISION)(BEAKER) (test code = 2832) EOSINOPHILS - ABS 0.19 K/uL 0.04-0.54 (CELLAVISION)(BEAKER) (test code = 2834) BASOPHILS - ABS 0.57 K/uL 0.01-0.08 H (CELLAVISION)(BEAKER) (test code = 2835) BANDS - ABS (CELLAVISION)(BEAKER) 0.38 K/uL 0.00-0.80 (test code = 2840) TOTAL COUNTED (BEAKER) (test code 100 = 1351) MANUAL NRBC PER 100 CELLS (BEAKER) 2 /100 WBC 0-0 H (test code = 1353) CLUMPED PLATELETS (BEAKER) (test Present code = 436) SMUDGE CELLS (BEAKER) (test code = Present 1371) POLYCHROMATOPHILLIC RBCS(BEAKER) 1+ few (test code = 478) ANISOCYTOSIS (BEAKER) (test code = 1+ few 961) ARTIFACT (CELLAVISION)(BEAKER) Present (test code = 3432) PLATELET CONCENTRATION Adequate (CELLAVISION)(BEAKER) (test code = 3438) Consumer Product Advisor ID - Bekah Jha comments: Slide comments:CBC W/PLT COUNT & AUTO [id number] 07:23:43 Test Item Value Reference Range Interpretation Comments WHITE BLOOD CELL COUNT (BEAKER) 19.0 K/ L 3.5-10.5 H (test code = 775) RED BLOOD CELL COUNT (BEAKER) 3.03 M/ L 4.63-6.08 L (test code = 761) HEMOGLOBIN (BEAKER) (test code = 9.3 GM/DL 13.7-17.5 L 410) HEMATOCRIT (BEAKER) (test code = 31.6 % 40.1-51.0 L 411) MEAN CORPUSCULAR VOLUME (BEAKER) 104.3 fL 79.0-92.2 H (test code = 753) MEAN CORPUSCULAR HEMOGLOBIN 30.7 pg 25.7-32.2 (BEAKER) (test code = 751) MEAN CORPUSCULAR HEMOGLOBIN CONC 29.4 GM/DL 32.3-36.5 L (BEAKER) (test code = 752) RED CELL DISTRIBUTION WIDTH 15.8 % 11.6-14.4 H (BEAKER) (test code = 412) PLATELET COUNT (BEAKER) (test 349 K/CU MM 150-450 code = 756) MEAN PLATELET VOLUME (BEAKER) 10.8 fL 9.4-12.4 (test code = 754) NUCLEATED RED BLOOD CELLS 0 /100 WBC 0-0 (BEAKER) (test code = 413) POCT-GLUCOSE [id number] 06:32:59 Test Item Value Reference Range Interpretation Comments POC-GLUCOSE METER 139 mg/dL 70-110 H : TESTED A T [facility] 6720 (BEAKER) (test code = D[place], 1538) [address]: Consumer Product Advisor/Techni bobby ID = [id number] for TA I, CLAUDIO-AN RAD, CHEST, 1 VIEW, NON [id number] 04:56:00Reason for exam:->s/p intubatedShould this be performed at the bedside?->Yes [facility] : 1960 Sex: MFINAL REPORT EXAM/TECHNIQUE: Single view frontal radiograph of the chest. INDICATION: Intubated. COMPARISON: 02/03/2021 FINDINGS: Devices/Objects: Stable. Lungs: Similar left pulmonary opacities. Heart/Mediastinum: Similar cardiomegaly. Osseous: No acute osseous process. No suspicious osseous lesion. Upper abdomen: Unremarkable. Impression: No new cardiopulmonary process. Signed: Mario Stubbs Verified Date/Time: 02/04/2021 04:56:33 COMPREHENSIVE METABOLIC [id number] 04:07:45 Test Item Value Reference Range Interpretation Comments TOTAL PROTEIN 6.0 gm/dL 6.0-8.3 (BEAKER) (test code = 770) ALBUMIN (BEAKER) 2.7 g/dL 3.5-5.0 L (test code = 1145) ALKALINE PHOSPHATASE 42 U/L 40-150 (BEAKER) (test code = 346) BILIRUBIN TOTAL 0.4 mg/dL 0.2-1.2 (BEAKER) (test code = 377) SODIUM (BEAKER) (test 156 meq/L 136-145 H code = 381) POTASSIUM (BEAKER) 3.7 meq/L 3.5-5.1 (test code = 379) CHLORIDE (BEAKER) 122 meq/L 98-107 H (test code = 382) CO2 (BEAKER) (test 27 meq/L 22-29 code = 355) BLOOD UREA NITROGEN 19 mg/dL 7-21 (BEAKER) (test code = 354) CREATININE (BEAKER) 0.65 mg/dL 0.57-1.25 (test code = 358) GLUCOSE RANDOM 163 mg/dL 70-105 H (BEAKER) (test code = 652) CALCIUM (BEAKER) 9.7 mg/dL 8.4-10.2 (test code = 697) AST (SGOT) (BEAKER) 22 U/L 5-34 (test code = 353) ALT (SGPT) (BEAKER) 15 U/L 6-55 (test code = 347) EGFR (BEAKER) (test 124 ESTIMATE D GFR IS code = 1092) mL/min/1.73 sq NOT ACCURA TE m CREATININE CLEARANCE IN PREDICTING GLOMERULAR FILTRATION RATE . ESTIMATED GFR I S NOT APPLICABLE FOR DIALYSIS PATIEN TS. Consumer Product Advisor ID - [id number] 04:06:30 Test Item Value Reference Range Interpretation Comments PHOSPHORUS (BEAKER) (test code = 2.3 mg/dL 2.3-4.7 604) Consumer Product Advisor ID - [id number] 04:06:29 Test Item Value Reference Range Interpretation Comments MAGNESIUM (BEAKER) (test code = 1.9 mg/dL 1.6-2.6 627) Consumer Product Advisor ID - [id number] 03:47:03 Test Item Value Reference Range Interpretation Comments PTT (test code = 03835-7) 27.6 See_Comment [ Automated message] The system [employer] generated this result transmitted ref erence range: 22.5 - 3 6.0 seconds. The re ference range was not u sed to interpret this result as normal/abnor mal. Lab Interpretation (test Normal code = 58327-6) [facility] CenterAPTT2021-12-26 03:47:03 Test Item Value Reference Range Interpretation Comments PARTIAL THROMBOPLASTIN TIME 27.6 seconds 22.5-36.0 (BEAKER) (test code = 760) PROTHROMBIN TIME/[id number] 03:46:23 Test Item Value Reference Range Interpretation Comments PROTIME (BEAKER) 14.3 seconds 11.9-14.2 H (test code = 759) INR (BEAKER) (test 1.13 See_Comment [Automat ed message] code = 370) The system [employer] generated this result transmitted ref erence range: <=5.90. The reference range was not used to int erpret this result as normal/abnormal . RECOMMENDED COUMADIN/WARFARIN INR THERAPY RANGESSTANDARD DOSE: 2.0 - 3.0 Includes: PROPHYLAXIS for venous thrombosis, systemic embolization; TREATMENT for venous thrombosis and/or pulmonary embolus.HIGH RISK: Target INR is 2.5-3.5 for patients with mechanical heart valves.CALCIUM, [id number] 03:44:20 Test Item Value Reference Range Interpretation Comments CALCIUM IONIZED (BEAKER) (test 1.30 mmol/L 1.12-1.27 H code = 698) PH, BLOOD (BEAKER) (test code = 7.35 1810) BLOOD GAS, [id number] 03:44:20 Test Item Value Reference Range Interpretation Comments PH VENOUS (BEAKER) (test code = 7.35 7.32-7.42 701) PCO2 VENOUS (BEAKER) (test code = 58 mm Hg 41-51 H 755) PO2 VENOUS (BEAKER) (test code = 55 mm Hg 25-40 H 702) O2 SATURATION VENOUS (BEAKER) 85.2 % 40.0-70.0 H (test code = 703) HCO3 VENOUS (BEAKER) (test code = 31 mmol/L 21-29 H 705) BASE EXCESS VENOUS (BEAKER) (test 4.3 mmol/L -2.0-3.0 H code = 704) PATIENT TEMPERATURE (BEAKER) (test 37.6 code = 1818) FIO2 (BEAKER) (test code = 1819) 50.0 RAD, CHEST, 1 VIEW, NON [id number] 22:03:00Reason for exam:->Acute distress, chest tube placement, pneumothoraxShould this be performed at the bedside?->Yes[facility] : 1960 Sex: MFINAL REPORT EXAM/TECHNIQUE: Single view frontal radiograph of the chest. INDICATION: Acute distress. COMPARISON: 02/03/2021. FINDINGS: Devices/Objects: Stable. Lungs: Similar left lung opacification without visible pneumothorax. Heart/Mediastinum: Similar cardiomegaly. Osseous: No acute osseous process. No suspicious osseous lesion. Left neck and chest wall emphysema. Upper abdomen: Unremarkable. Impression: Similar left lung opacification without visible pneumothorax. Signed: Mario Stubbs MDRepst. luke's hospital Verified Date/Time: 02/03/2021 22:03:38 Electronically signed by: MARIO STUBBS MD on02/03/2021 10:03 PMCBC (HEMOGRAM ONLY)2021-02-03 20:49:26 Test Item Value Reference Range Interpretation Comments WHITE BLOOD CELL COUNT (BEAKER) 13.3 K/ L 3.5-10.5 H (test code = 775) RED BLOOD CELL COUNT (BEAKER) 2.70 M/ L 4.63-6.08 L (test code = 761) HEMOGLOBIN (BEAKER) (test code = 8.2 GM/DL 13.7-17.5 L 410) HEMATOCRIT (BEAKER) (test code = 28.3 % 40.1-51.0 L 411) MEAN CORPUSCULAR VOLUME (BEAKER) 104.8 fL 79.0-92.2 H (test code = 753) MEAN CORPUSCULAR HEMOGLOBIN 30.4 pg 25.7-32.2 (BEAKER) (test code = 751) MEAN CORPUSCULAR HEMOGLOBIN CONC 29.0 GM/DL 32.3-36.5 L (BEAKER) (test code = 752) RED CELL DISTRIBUTION WIDTH 15.9 % 11.6-14.4 H (BEAKER) (test code = 412) PLATELET COUNT (BEAKER) (test 309 K/CU MM 150-450 code = 756) MEAN PLATELET VOLUME (BEAKER) 10.9 fL 9.4-12.4 (test code = 754) NUCLEATED RED BLOOD CELLS 0 /100 WBC 0-0 (BEAKER) (test code = 413) BASIC METABOLIC [id number] 18:12:37 Test Item Value Reference Range Interpretation Comments SODIUM (BEAKER) 157 meq/L 136-145 H (test code = 381) POTASSIUM (BEAKER) 3.8 meq/L 3.5-5.1 (test code = 379) CHLORIDE (BEAKER) 123 meq/L 98-107 H (test code = 382) CO2 (BEAKER) (test 28 meq/L 22-29 code = 355) BLOOD UREA NITROGEN 23 mg/dL 7-21 H (BEAKER) (test code = 354) CREATININE (BEAKER) 0.66 mg/dL 0.57-1.25 (test code = 358) GLUCOSE RANDOM 187 mg/dL 70-105 H (BEAKER) (test code = 652) CALCIUM (BEAKER) 9.4 mg/dL 8.4-10.2 (test code = 697) EGFR (BEAKER) (test 122 mL/min/1.73 ESTIM ATED GFR IS code = 1092) sq m NOT ACCURATE CREATININE CLEARANCE IN PREDICTING GLOMERULAR FILTRATION RATE . ESTIMATED GFR I S NOT APPLICABLE FOR DIALYSIS PATIEN TS. Consumer Product Advisor ID - DBPOCT-GLUCOSE [id number] 17:47:13 Test Item Value Reference Range Interpretation Comments POC-GLUCOSE METER 174 mg/dL 70-110 H : Notified RN/MD: (BEAKER) (test code = TESTED AT [facility] 1729 3304) [facility], [address]: Consumer Product Advisor/Techni bobby ID = [id number] for LL PURVI CARDENAS BLOOD GAS, [id number] 17:29:45 Test Item Value Reference Range Interpretation Comments PH VENOUS (BEAKER) (test code = 7.40 7.32-7.42 701) PCO2 VENOUS (BEAKER) (test code = 51 mm Hg 41-51 755) PO2 VENOUS (BEAKER) (test code = 58 mm Hg 25-40 H 702) O2 SATURATION VENOUS (BEAKER) 89.9 % 40.0-70.0 H (test code = 703) HCO3 VENOUS (BEAKER) (test code = 31 mmol/L 21-29 H 705) BASE EXCESS VENOUS (BEAKER) (test 5.4 mmol/L -2.0-3.0 H code = 704) PATIENT TEMPERATURE (BEAKER) (test 37.0 code = 1818) FIO2 (BEAKER) (test code = 1819) 40.0 Vitamin B12 and [id number] 14:29:57 Test Item Value Reference Range Interpretation Comments Vitamin B12 (test 420 pg/mL 213-816 code = 2132-9) Folate (test code = 38.40 ng/mL See_Comment [Automa tuyet 2284-8) message] The system which generated this result transmitted reference range : >=7.00. The reference range was not used to interpret this result as normal/abnormal . RUTHIE (test code = RUTHIE) Consumer Product Advisor ID - LIZET JEANperator ID - LIZET W Lab Interpretation Normal (test code = 11240-9) [facility] CenterVITAMIN B12 AND [id number] 14:29:57 Test Item Value Reference Range Interpretation Comments VITAMIN B12 420 pg/mL 213-816 (BEAKER) (test code = 774) FOLATE (BEAKER) 38.40 ng/mL See_Comment [Automated message] (test code = 362) The system which generated this result transmitted ref erence range: >=7.00. The reference range was not used to interpr et this result as normal/abnormal . Consumer Product Advisor ID - LIZET JEANperator ID - LIZET WCT, CHEST, WITH [id number] 14:23:00Unlisted Reason for Exam - Click Yes and Enter Reason Below- >YesUnlisted Reason for Exam->s/p decortication for L lung empyema. possible residiual loculated fluid collection in SLADE assessment [facility] : 1960 Sex: MFINAL REPORT CT of the chest, with contrast Clinical History: PneumoniaPleural effusions/pdecortication for L lung empyema. Possible residual loculated fluid collection in SLADE assessment Technique: CT of the chest is performed with intravenous contrast administration. This exam was performed according to our departmental dose optimization program which includes automated exposure control, adjustment of the mA and/or kV according to patient's size and/or use of iterative reconstructive technique. Comparison Film: January 31, 2021 Discussion: ET is above the calvin. Feeding tube enters the gastric body. No supraclavicular, axillary, mediastinal or hilar lymphadenopathy. Heart and pericardium are unremarkable. Status post placement of two left-sided chest tubes. The dominant locule of the left pleural effusion has resolved. Additional small loculated collections at the left apex, as well as anterior and medial aspect of the left thorax are without significant interval change. Left upper lung aeration has improved, there is advanced atelectasis/consolidation in the lingula and left lower lobe. Trace loculated left-sided pneumothorax There is a small right pleural effusion, with relaxation atelectasis in the posterior right lower lobe. Partially imaged upper abdomen is without worrisome findings. Bony structures demonstrate mild degenerative changes. There is subcutaneous emphysema involving the lower neck, and left chest wall. Impression: Status post placement of two left-sided chest tubes. The dominant locule of left effusion has resolved, there are several small residual loculated collections. Atelectasis/consolidation in the lingula, and left lower lobe. Small right pleural effusion. Soft tissues emphysema in the lower neck, and left chest wall. Signed: Rafa Berry MDReport Verified Date/Time: 02/03/2021 14:23:14 Reading Location: [facility] B1 [id number] Ortho Consult Reading Room POCT-GLUCOSE [id number] 12:25:29 Test Item Value Reference Range Interpretation Comments POC-GLUCOSE METER 164 mg/dL 70-110 H : TESTED A T [facility] 6720 (BEAKER) (test code = D[place], 1538) [address]: Consumer Product Advisor/Techni bobby ID = [id number] for PURVI PAZ Blood gas, [id number] 11:45:15 Test Item Value Reference Range Interpretation Comments pH, Arterial (test code 7.46 7.35-7.45 H = 2744-1) pCO2, Arterial (test 43 See_Comment [Autom ated message] code = 2019-8) The system [employer] generated this result transmit tuyet reference range : 35 - 45 mm Hg. The reference range was not used to interpret this result as normal/abnormal . pO2, Arterial (test 83 See_Comment [Automa tuyet message] code = 2703-7) The system [employer] generated this result transmit tuyet reference range : 80 - 90 mm Hg. The reference range was not used to interpret this result as normal/abnormal . O2 Sat, Arterial (test 96.6 % 96.0-97.0 code = 2708-6) HCO3, Arterial (test 30 mmol/L 21-29 H code = 1960-4) Base Excess, Arterial 5.3 mmol/L -2.0-3.0 H (test code = 1925-7) Patient Temperature 37.0 (test code = 8310-5) FIO2 (test code = 1819) 60 Lab Interpretation Abnormal (test code = 45645-4) [facility] CenterBL[facility]OD GAS, [id number] 11:45:15 Test Item Value Reference Range Interpretation Comments PH ARTERIAL (BEAKER) (test code = 7.46 7.35-7.45 H 383) PCO2 ARTERIAL (BEAKER) (test code 43 mm Hg 35-45 = 384) PO2 ARTERIAL (BEAKER) (test code = 83 mm Hg 80-90 385) O2 SATURATION ARTERIAL (BEAKER) 96.6 % 96.0-97.0 (test code = 386) HCO3 ARTERIAL (BEAKER) (test code 30 mmol/L 21-29 H = 388) BASE EXCESS ARTERIAL (BEAKER) 5.3 mmol/L -2.0-3.0 H (test code = 387) PATIENT TEMPERATURE (BEAKER) (test 37.0 code = 1818) FIO2 (BEAKER) (test code = 1819) 60.0 CBC (HEMOGRAM ONLY)2021-02-03 11:02:29 Test Item Value Reference Range Interpretation Comments WHITE BLOOD CELL COUNT (BEAKER) 15.5 K/ L 3.5-10.5 H (test code = 775) RED BLOOD CELL COUNT (BEAKER) 2.56 M/ L 4.63-6.08 L (test code = 761) HEMOGLOBIN (BEAKER) (test code = 7.9 GM/DL 13.7-17.5 L 410) HEMATOCRIT (BEAKER) (test code = 26.2 % 40.1-51.0 L 411) MEAN CORPUSCULAR VOLUME (BEAKER) 102.3 fL 79.0-92.2 H (test code = 753) MEAN CORPUSCULAR HEMOGLOBIN 30.9 pg 25.7-32.2 (BEAKER) (test code = 751) MEAN CORPUSCULAR HEMOGLOBIN CONC 30.2 GM/DL 32.3-36.5 L (BEAKER) (test code = 752) RED CELL DISTRIBUTION WIDTH 15.9 % 11.6-14.4 H (BEAKER) (test code = 412) PLATELET COUNT (BEAKER) (test 293 K/CU MM 150-450 code = 756) MEAN PLATELET VOLUME (BEAKER) 10.7 fL 9.4-12.4 (test code = 754) NUCLEATED RED BLOOD CELLS 1 /100 WBC 0-0 H (BEAKER) (test code = 413) BODY FLUID CULTURE + GRAM [id number] 10:32:27 Test Item Value Reference Range Interpretation Comments CULTURE (BEAKER) STREPTOCOCCUS A From Aerob ic And (test code = INTERMEDIUS [facility] Streptococcus intermedius Ceftriaxone (test mcg/mL See_Comment S [Automate d code = 52) message] The sy stem which generated this result transmitted reference range : Susceptible 0-1 mcg/mL, Resista nt <0 or >1 mcg/mL . The reference r raffaele was not used to interpret this result as normal/abnormal . Penicillin G mcg/mL See_Comment S [Automated (test code = 3) message] The system which generated this result transmitted reference range : Susceptible 0-0 .12 mcg/mL, Intermediate <0 or >.12 mcg/mL, R. The reference range was not used to interpret this result as normal/abnormal . Vancomycin (test mcg/mL See_Comment S [Automated code = 13) message] The sy stem which generated this result transmitted reference range : Dose Dependent Susceptible <=2 mcg/mL, Intermediate >2 mcg/m. The reference range was not used to interpret this result as normal/abnormal . GRAM STAIN RESULT From aerobic and (BEAKER) (test anaerobic bottles: code = 1123) gram positive cocci in pairs and clusters SPIN/CONCENTRATION [id number] 09:42:36 Test Item Value Reference Range Interpretation Comments Concentration charged (test code = Done 2657) [facility] [id number] 09:42:36 Test Item Value Reference Range Interpretation Comments CONCENTRATION CHARGED (BEAKER) (test Done code = 2657) COMPREHENSIVE METABOLIC [id number] 08:00:32 Test Item Value Reference Range Interpretation Comments TOTAL PROTEIN 5.5 gm/dL 6.0-8.3 L (BEAKER) (test code = 770) ALBUMIN (BEAKER) 2.7 g/dL 3.5-5.0 L (test code = 1145) ALKALINE PHOSPHATASE 33 U/L 40-150 L (BEAKER) (test code = 346) BILIRUBIN TOTAL 0.4 mg/dL 0.2-1.2 (BEAKER) (test code = 377) SODIUM (BEAKER) (test 154 meq/L 136-145 H code = 381) POTASSIUM (BEAKER) 3.6 meq/L 3.5-5.1 (test code = 379) CHLORIDE (BEAKER) 121 meq/L 98-107 H (test code = 382) CO2 (BEAKER) (test 29 meq/L 22-29 code = 355) BLOOD UREA NITROGEN 25 mg/dL 7-21 H (BEAKER) (test code = 354) CREATININE (BEAKER) 0.67 mg/dL 0.57-1.25 (test code = 358) GLUCOSE RANDOM 221 mg/dL 70-105 H (BEAKER) (test code = 652) CALCIUM (BEAKER) 9.3 mg/dL 8.4-10.2 (test code = 697) AST (SGOT) (BEAKER) 14 U/L 5-34 (test code = 353) ALT (SGPT) (BEAKER) 12 U/L 6-55 (test code = 347) EGFR (BEAKER) (test 120 ESTIMATE D GFR IS code = 1092) mL/min/1.73 sq NOT ACCURA TE m CREATININE CLEARANCE IN PREDICTING GLOMERULAR FILTRATION RATE . ESTIMATED GFR I S NOT APPLICABLE FOR DIALYSIS PATIEN TS. Consumer Product Advisor ID - LIZET WCBC W/PLT COUNT & AUTO [id number] 07:43:07 Test Item Value Reference Range Interpretation Comments WHITE BLOOD CELL COUNT (BEAKER) 14.3 K/ L 3.5-10.5 H (test code = 775) RED BLOOD CELL COUNT (BEAKER) 2.46 M/ L 4.63-6.08 L (test code = 761) HEMOGLOBIN (BEAKER) (test code = 7.7 GM/DL 13.7-17.5 L 410) HEMATOCRIT (BEAKER) (test code = 25.3 % 40.1-51.0 L 411) MEAN CORPUSCULAR VOLUME (BEAKER) 102.8 fL 79.0-92.2 H (test code = 753) MEAN CORPUSCULAR HEMOGLOBIN 31.3 pg 25.7-32.2 (BEAKER) (test code = 751) MEAN CORPUSCULAR HEMOGLOBIN CONC 30.4 GM/DL 32.3-36.5 L (BEAKER) (test code = 752) RED CELL DISTRIBUTION WIDTH 15.7 % 11.6-14.4 H (BEAKER) (test code = 412) PLATELET COUNT (BEAKER) (test 296 K/CU MM 150-450 code = 756) MEAN PLATELET VOLUME (BEAKER) 10.8 fL 9.4-12.4 (test code = 754) NUCLEATED RED BLOOD CELLS 1 /100 WBC 0-0 H (BEAKER) (test code = 413) NEUTROPHILS RELATIVE PERCENT 75 % (BEAKER) (test code = 429) LYMPHOCYTES RELATIVE PERCENT 12 % (BEAKER) (test code = 430) MONOCYTES RELATIVE PERCENT 6 % (BEAKER) (test code = 431) EOSINOPHILS RELATIVE PERCENT 2 % (BEAKER) (test code = 432) BASOPHILS RELATIVE PERCENT 0 % (BEAKER) (test code = 437) NEUTROPHILS ABSOLUTE COUNT 10.68 K/ L 1.78-5.38 H (BEAKER) (test code = 670) LYMPHOCYTES ABSOLUTE COUNT 1.78 K/ L 1.32-3.57 (BEAKER) (test code = 414) MONOCYTES ABSOLUTE COUNT (BEAKER) 0.80 K/ L 0.30-0.82 (test code = 415) EOSINOPHILS ABSOLUTE COUNT 0.30 K/ L 0.04-0.54 (BEAKER) (test code = 416) BASOPHILS ABSOLUTE COUNT (BEAKER) 0.04 K/ L 0.01-0.08 (test code = 417) IMMATURE GRANULOCYTES-RELATIVE 5 % 0-1 H PERCENT (BEAKER) (test code = 2801) PROTHROMBIN TIME/[id number] 07:42:48 Test Item Value Reference Range Interpretation Comments PROTIME (BEAKER) 15.0 seconds 11.9-14.2 H (test code = 759) INR (BEAKER) (test 1.20 See_Comment [Automat ed message] code = 370) The system [employer] generated this result transmitted ref erence range: <=5.90. The reference range was not used to int erpret this result as normal/abnormal . RECOMMENDED COUMADIN/WARFARIN INR THERAPY RANGESSTANDARD DOSE: 2.0 - 3.0 Includes: PROPHYLAXIS for venous thrombosis, systemic embolization; TREATMENT for venous thrombosis and/or pulmonary embolus.HIGH RISK: Target INR is 2.5-3.5 for patients with mechanical heart valves.[id number] 07:33:28 Test Item Value Reference Range Interpretation Comments PHOSPHORUS (BEAKER) (test code = 2.7 mg/dL 2.3-4.7 604) Consumer Product Advisor ID - LIZET [id number] 07:33:27 Test Item Value Reference Range Interpretation Comments MAGNESIUM (BEAKER) (test code = 2.2 mg/dL 1.6-2.6 627) Consumer Product Advisor ID - LIZET WRAD, CHEST, 1 VIEW, NON [id number] 07:32:00Reason for exam:->s/p intubatedShould this be performed at the bedside?->Yes [facility] : 1960 Sex: MFINAL REPORT RAD, CHEST, 1 VIEW, NON DEPT INDICATION: s/p intubated COMPARISON: Prior day's exam FINDINGS: Portable frontal view of the chest. IMPRESSION: Support Lines: ET tube has been advanced with tip now 3cm above the calvin. Central catheter tip overlies the atriocaval junction. NG tube descends below the diaphragm. Two left-sided chest tubes. Lungs and pleura: Subcutaneous emphysemaalong the left chest wall. Significant decreased pleural effusion. No significant pneumothorax. Heart and mediastinum: Stable contours. Stable surgical changes. Additional findings: None. . Signed: Paige Seay MDReport Verified Date/Time: 02/03/2021 07:32:13 BLOOD GAS, [id number] 07:10:02 Test Item Value Reference Range Interpretation Comments PH VENOUS (BEAKER) (test code = 7.38 7.32-7.42 701) PCO2 VENOUS (BEAKER) (test code = 49 mm Hg 41-51 755) PO2 VENOUS (BEAKER) (test code = 52 mm Hg 25-40 H 702) O2 SATURATION VENOUS (BEAKER) 85.3 % 40.0-70.0 H (test code = 703) HCO3 VENOUS (BEAKER) (test code = 28 mmol/L 21-29 705) BASE EXCESS VENOUS (BEAKER) (test 2.3 mmol/L -2.0-3.0 code = 704) PATIENT TEMPERATURE (BEAKER) (test 37.3 code = 1818) FIO2 (BEAKER) (test code = 1819) 40.0 CALCIUM, [id number] 07:08:03 Test Item Value Reference Range Interpretation Comments CALCIUM IONIZED (BEAKER) (test 1.27 mmol/L 1.12-1.27 code = 698) PH, BLOOD (BEAKER) (test code = 7.38 1810) POCT-GLUCOSE [id number] 06:01:03 Test Item Value Reference Range Interpretation Comments POC-GLUCOSE METER 185 mg/dL 70-110 H : TESTED A T [facility] 6720 (BEAKER) (test code [facility] = 1538) 19470: Consumer Product Advisor/Techni bobby ID = [id number] for SUGU , SHEENAMOL POCT-GLUCOSE [id number] 00:30:38 Test Item Value Reference Range Interpretation Comments POC-GLUCOSE METER 207 mg/dL 70-110 H : TESTED A T [facility] 6720 (BEAKER) (test code [facility] = 1538) 97175: Consumer Product Advisor/Techni bobby ID = [id number] for SUGU , SHEENAMOL BASIC METABOLIC [id number] 00:13:24 Test Item Value Reference Range Interpretation Comments SODIUM (BEAKER) 157 meq/L 136-145 H (test code = 381) POTASSIUM (BEAKER) 3.5 meq/L 3.5-5.1 (test code = 379) CHLORIDE (BEAKER) 123 meq/L 98-107 H (test code = 382) CO2 (BEAKER) (test 29 meq/L 22-29 code = 355) BLOOD UREA NITROGEN 26 mg/dL 7-21 H (BEAKER) (test code = 354) CREATININE (BEAKER) 0.71 mg/dL 0.57-1.25 (test code = 358) GLUCOSE RANDOM 215 mg/dL 70-105 H (BEAKER) (test code = 652) CALCIUM (BEAKER) 9.4 mg/dL 8.4-10.2 (test code = 697) EGFR (BEAKER) (test 112 mL/min/1.73 ESTIM ATED GFR IS code = 1092) sq m NOT ACCURATE CREATININE CLEARANCE IN PREDICTING GLOMERULAR FILTRATION RATE . ESTIMATED GFR I S NOT APPLICABLE FOR DIALYSIS PATIEN TS. Consumer Product Advisor ID - LIZET FTAZURBKEG2870-98-42 00:10:48 Test Item Value Reference Range Interpretation Comments MAGNESIUM (BEAKER) (test code = 1.9 mg/dL 1.6-2.6 627) Consumer Product Advisor ID - LIZET WRGQLKSQZLH7635-08-75 00:10:48 Test Item Value Reference Range Interpretation Comments PHOSPHORUS (BEAKER) (test code = 2.7 mg/dL 2.3-4.7 604) Consumer Product Advisor ID - LIZET WCBC (HEMOGRAM ONLY)2021-02-02 23:43:10 Test Item Value Reference Range Interpretation Comments WHITE BLOOD CELL COUNT (BEAKER) 13.9 K/ L 3.5-10.5 H (test code = 775) RED BLOOD CELL COUNT (BEAKER) 2.13 M/ L 4.63-6.08 L (test code = 761) HEMOGLOBIN (BEAKER) (test code = 6.5 GM/DL 13.7-17.5 L 410) HEMATOCRIT (BEAKER) (test code = 22.1 % 40.1-51.0 L 411) MEAN CORPUSCULAR VOLUME (BEAKER) 103.8 fL 79.0-92.2 H (test code = 753) MEAN CORPUSCULAR HEMOGLOBIN 30.5 pg 25.7-32.2 (BEAKER) (test code = 751) MEAN CORPUSCULAR HEMOGLOBIN CONC 29.4 GM/DL 32.3-36.5 L (BEAKER) (test code = 752) RED CELL DISTRIBUTION WIDTH 15.3 % 11.6-14.4 H (BEAKER) (test code = 412) PLATELET COUNT (BEAKER) (test 301 K/CU MM 150-450 code = 756) MEAN PLATELET VOLUME (BEAKER) 10.5 fL 9.4-12.4 (test code = 754) NUCLEATED RED BLOOD CELLS 0 /100 WBC 0-0 (BEAKER) (test code = 413) BLOOD GAS, [id number] 23:35:07 Test Item Value Reference Range Interpretation Comments PH VENOUS (BEAKER) (test code = 7.42 7.32-7.42 701) PCO2 VENOUS (BEAKER) (test code = 49 mm Hg 41-51 755) PO2 VENOUS (BEAKER) (test code = 55 mm Hg 25-40 H 702) O2 SATURATION VENOUS (BEAKER) 88.7 % 40.0-70.0 H (test code = 703) HCO3 VENOUS (BEAKER) (test code = 31 mmol/L 21-29 H 705) BASE EXCESS VENOUS (BEAKER) (test 5.6 mmol/L -2.0-3.0 H code = 704) PATIENT TEMPERATURE (BEAKER) (test 37.1 code = 1818) FIO2 (BEAKER) (test code = 1819) 40.0 POCT-GLUCOSE [id number] 18:58:46 Test Item Value Reference Range Interpretation Comments POC-GLUCOSE METER 183 mg/dL 70-110 H : TESTED A T [facility] 6720 (BEAKER) (test code [facility], = 1538) [address]: Consumer Product Advisor/Techni bobby ID = [id number] for Geneva garcia (contract), [facility] lorraine BASIC METABOLIC [id number] 17:52:35 Test Item Value Reference Range Interpretation Comments SODIUM (BEAKER) 158 meq/L 136-145 H (test code = 381) POTASSIUM (BEAKER) 3.7 meq/L 3.5-5.1 (test code = 379) CHLORIDE (BEAKER) 123 meq/L 98-107 H (test code = 382) CO2 (BEAKER) (test 30 meq/L 22-29 H code = 355) BLOOD UREA NITROGEN 29 mg/dL 7-21 H (BEAKER) (test code = 354) CREATININE (BEAKER) 0.77 mg/dL 0.57-1.25 (test code = 358) GLUCOSE RANDOM 211 mg/dL 70-105 H (BEAKER) (test code = 652) CALCIUM (BEAKER) 9.5 mg/dL 8.4-10.2 (test code = 697) EGFR (BEAKER) (test 102 mL/min/1.73 ESTIM ATED GFR IS code = 1092) sq m NOT ACCURATE CREATININE CLEARANCE IN PREDICTING GLOMERULAR FILTRATION RATE . ESTIMATED GFR I S NOT APPLICABLE FOR DIALYSIS PATIEN TS. Consumer Product Advisor ID - PWKPHFHAHRKI3619-07-04 17:48:39 Test Item Value Reference Range Interpretation Comments PHOSPHORUS (BEAKER) (test code = 3.1 mg/dL 2.3-4.7 604) Consumer Product Advisor ID - HIKSISMQRCW2944-31-95 17:48:38 Test Item Value Reference Range Interpretation Comments MAGNESIUM (BEAKER) (test code = 2.0 mg/dL 1.6-2.6 627) Consumer Product Advisor ID - DBVancomycin level, [id number] 17:45:42 Test Item Value Reference Range Interpretation Comments Vancomycin Tr (test code = 17.7 ug/mL 10.0-20.0 4092-3) RUTHIE (test code = RUTHIE) Consumer Product Advisor ID - DB Lab Interpretation (test Normal code = 04167-4) [facility] CenterVAN[facility]YCIN LEVEL, [id number] 17:45:42 Test Item Value Reference Range Interpretation Comments VANCOMYCIN TROUGH (BEAKER) (test 17.7 ug/mL 10.0-20.0 code = 522) Consumer Product Advisor ID - DBBLOOD GAS, [id number] 17:17:22 Test Item Value Reference Range Interpretation Comments PH VENOUS (BEAKER) (test code = 7.39 7.32-7.42 701) PCO2 VENOUS (BEAKER) (test code = 51 mm Hg 41-51 755) PO2 VENOUS (BEAKER) (test code = 67 mm Hg 25-40 H 702) O2 SATURATION VENOUS (BEAKER) 92.5 % 40.0-70.0 H (test code = 703) HCO3 VENOUS (BEAKER) (test code = 30 mmol/L 21-29 H 705) BASE EXCESS VENOUS (BEAKER) (test 5.0 mmol/L -2.0-3.0 H code = 704) PATIENT TEMPERATURE (BEAKER) (test 37.4 code = 1818) FIO2 (BEAKER) (test code = 1819) 50.0 Triglycerides, Pleural [id number] 16:52:16 Test Item Value Reference Range Interpretation Comments TRIGLYCERIDES, 109 mg/dL See Note: Reference PLEURAL FLUID Range:CHYLOUS: (test code = >110NONCHYLOUS: 9619-8) <50 RUTHIE (test code = Performing Lab EZ RUTHIE) [facility] [id number] [place] [address] Beni Paez MD, PhD, JALIL [facility] CenterBASIC METABOLIC [id number] 13:48:23 Test Item Value Reference Range Interpretation Comments SODIUM (BEAKER) 158 meq/L 136-145 H (test code = 381) POTASSIUM (BEAKER) 3.5 meq/L 3.5-5.1 (test code = 379) CHLORIDE (BEAKER) 122 meq/L 98-107 H (test code = 382) CO2 (BEAKER) (test 28 meq/L 22-29 code = 355) BLOOD UREA NITROGEN 30 mg/dL 7-21 H (BEAKER) (test code = 354) CREATININE (BEAKER) 0.81 mg/dL 0.57-1.25 (test code = 358) GLUCOSE RANDOM 247 mg/dL 70-105 H (BEAKER) (test code = 652) CALCIUM (BEAKER) 9.2 mg/dL 8.4-10.2 (test code = 697) EGFR (BEAKER) (test 96 mL/min/1.73 ESTIMA TUYET GFR IS code = 1092) sq m NOT ACCURATE CREATININE CLEARANCE IN PREDICTING GLOMERULAR FILTRATION RATE . ESTIMATED GFR I S NOT APPLICABLE FOR DIALYSIS PATIEN TS. Consumer Product Advisor ID - REANNA GABRIELXIDPVOWOJAT4378-85-83 13:45:56 Test Item Value Reference Range Interpretation Comments PHOSPHORUS (BEAKER) (test code = 1.7 mg/dL 2.3-4.7 L 604) Consumer Product Advisor ID - REANNA GABRIELOCT-GLUCOSE [id number] 12:45:27 Test Item Value Reference Range Interpretation Comments POC-GLUCOSE METER 224 mg/dL 70-110 H : TESTED A T [facility] 6720 (BEAKER) (test code [facility], = 1538) 95471: Consumer Product Advisor/Techni bobby ID = [id number] for [place] garcia (contract), [facility] lorraine Sodium, random [id number] 11:49:15 Test Item Value Reference Range Interpretation Comments Sodium Urine (test <20 meq/L code = 2955-3) RUTHIE (test code = Reference Range: No RUTHIE) NormalsOperator ID - REANNA [facility]ese [facility]ANDOM [id number] 11:49:15 Test Item Value Reference Range Interpretation Comments SODIUM URINE (BEAKER) (test code = < meq/L 243) Reference Range: No NormalsOperator ID - REANNA LChloride, random [id number] 11:37:37 Test Item Value Reference Range Interpretation Comments Chloride, Urine 41 meq/L (test code = 46581-1) RUTHIE (test code = Reference Range: No RUTHIE) NormalsOperator ID - REANNA Reese [facility] CenterPotassium, random [id number] 11:37:37 Test Item Value Reference Range Interpretation Comments Potassium Urine 22.8 meq/L (test code = 2828-2) RUTHIE (test code = Reference Range: No URTHIE) NormalsOperator ID - REANNA Reese [facility] CenterCHLORIDE, RANDOM [id number] 11:37:37 Test Item Value Reference Range Interpretation Comments CHLORIDE URINE (BEAKER) (test code = 41 meq/L 682) Reference Range: No NormalsOperator ID - REANNA LPOTASSIUM, RANDOM URINE 2021-02-02 11:37:37 Test Item Value Reference Range Interpretation Comments POTASSIUM URINE (BEAKER) (test 22.8 meq/L code = 195) Reference Range: No NormalsOperator ID - REANNA LGlucose, body [id number] 10:58:07 Test Item Value Reference Range Interpretation Comments Glucose, Body Fluid <7 mg/dL (test code = 2344-0) RUTHIE (test code = Absence of reference RUTHIE) range indicates that normals have not been defined.Assay performance has not been validated for this type of specimen. Consumer Product Advisor ID - [id number] [facility] CenterGLUCOSE, BODY [id number] 10:58:07 Test Item Value Reference Range Interpretation Comments GLUCOSE, BODY FLUID (BEAKER) (test < mg/dL code = 1528) Absence of reference range indicates that normals have not been defined.Assay performance has not been validated for this type of specimen.Consumer Product Advisor ID - [id number] Acid, Vrcnkxze3426-70-12 10:44:25 Test Item Value Reference Range Interpretation Comments Lactate, Art (test code = 1.0 mmol/L 0.5-2.2 2874) RUTHIE (test code = RUTHIE) Consumer Product Advisor ID - REANNA L Lab Interpretation (test Normal code = 21510-2) [facility] CenterLACTIC ACID, [id number] 10:44:25 Test Item Value Reference Range Interpretation Comments LACTATE BLOOD ARTERIAL (2) 1.0 mmol/L 0.5-2.2 (BEAKER) (test code = 2874) Consumer Product Advisor ID - PIZEKE LCBC (HEMOGRAM ONLY)2021-02-02 10:40:58 Test Item Value Reference Range Interpretation Comments WHITE BLOOD CELL COUNT (BEAKER) 18.7 K/ L 3.5-10.5 H (test code = 775) RED BLOOD CELL COUNT (BEAKER) 2.35 M/ L 4.63-6.08 L (test code = 761) HEMOGLOBIN (BEAKER) (test code = 7.4 GM/DL 13.7-17.5 L 410) HEMATOCRIT (BEAKER) (test code = 24.0 % 40.1-51.0 L 411) MEAN CORPUSCULAR VOLUME (BEAKER) 102.1 fL 79.0-92.2 H (test code = 753) MEAN CORPUSCULAR HEMOGLOBIN 31.5 pg 25.7-32.2 (BEAKER) (test code = 751) MEAN CORPUSCULAR HEMOGLOBIN CONC 30.8 GM/DL 32.3-36.5 L (BEAKER) (test code = 752) RED CELL DISTRIBUTION WIDTH 15.3 % 11.6-14.4 H (BEAKER) (test code = 412) PLATELET COUNT (BEAKER) (test 341 K/CU MM 150-450 code = 756) MEAN PLATELET VOLUME (BEAKER) 10.5 fL 9.4-12.4 (test code = 754) NUCLEATED RED BLOOD CELLS 0 /100 WBC 0-0 (BEAKER) (test code = 413) PROTEIN, BODY [id number] 10:11:15 Test Item Value Reference Range Interpretation Comments PROTEIN FLUID (BEAKER) (test code = 4.3 g/dL 579) Absence of reference range indicates that normals have not been defined.Assay performance has not been validated for this type of specimen.Consumer Product Advisor ID - [id number], body [id number] 10:11:14 Test Item Value Reference Range Interpretation Comments Protein, Fluid (test 4.2 g/dL code = 2881-1) RUTHIE (test code = Absence of reference RUTHIE) range indicates that normals have not been defined.Assay performance has not been validated for this type of specimen. Consumer Product Advisor ID - [id number] [facility] CenterPROTEIN, BODY [id number] 10:11:14 Test Item Value Reference Range Interpretation Comments PROTEIN FLUID (BEAKER) (test code = 4.2 g/dL 579) Absence of reference range indicates that normals have not been defined.Assay performance has not been validated for this type of specimen.Consumer Product Advisor ID - [id number] maghij4571-08-17 09:06:33 Test Item Value Reference Range Interpretation Comments Result (test code = 6463-4) No MRSA isolated [facility] CenterMRSA [id number] 09:06:33 Test Item Value Reference Range Interpretation Comments CULTURE (BEAKER) (test code No MRSA isolated = 1095) BLOOD GAS, [id number] 08:58:49 Test Item Value Reference Range Interpretation Comments PH ARTERIAL (BEAKER) (test code = 7.46 7.35-7.45 H 383) PCO2 ARTERIAL (BEAKER) (test code 34 mm Hg 35-45 L = 384) PO2 ARTERIAL (BEAKER) (test code = 188 mm Hg 80-90 H 385) O2 SATURATION ARTERIAL (BEAKER) 99.4 % 96.0-97.0 H (test code = 386) HCO3 ARTERIAL (BEAKER) (test code 24 mmol/L 21-29 = 388) BASE EXCESS ARTERIAL (BEAKER) 0.0 mmol/L -2.0-3.0 (test code = 387) PATIENT TEMPERATURE (BEAKER) (test 37.3 code = 1818) FIO2 (BEAKER) (test code = 1819) 40.0 RAD, CHEST, 1 VIEW, NON [id number] 08:28:00Reason for exam:->s/p intubatedShould this be performed at the bedside?->Yes [facility]ame[facility] VASU SPAULDING : 1960 Sex: MFINAL REPORT RAD, CHEST, 1 VIEW, NON DEPT INDICATION: s/p intubated COMPARISON: Prior day's exam FINDINGS: Portable frontal view of the chest. IMPRESSION: Support Lines: ET tube has been advanced with tip now 3.7 cm above the calvin. Central catheter tip overlies the atriocaval junction. NG tube descends below the diaphragm. Two left-sided chest tubes. Lungs and pleura: Subcutaneous emphysema along the left chest wall. Significant decreased pleural effusion. No significant pneumothorax. Heart and mediastinum: Stable contours. Stable surgical changes. Additional findings: None. Signed: Paige Seay Verified Date/Time: 02/02/2021 08:28:55 POCT-GLUCOSE [id number] 07:00:33 Test Item Value Reference Range Interpretation Comments POC-GLUCOSE METER 206 mg/dL 70-110 H : TESTED A T [facility] 6720 (BEAKER) (test code = [facility] 1538) [address]: Consumer Product Advisor/Techni bobby ID = [id number] for NEHAL ANGELES [id number] 04:38:16 Test Item Value Reference Range Interpretation Comments PHOSPHORUS (BEAKER) (test code = 1.1 mg/dL 2.3-4.7 LL 604) Consumer Product Advisor ID - REANNA [id number] 04:32:23 Test Item Value Reference Range Interpretation Comments MAGNESIUM (BEAKER) (test code = 2.2 mg/dL 1.6-2.6 627) Consumer Product Advisor ID - REANNA LCOMPREHENSIVE METABOLIC [id number] 04:32:22 Test Item Value Reference Range Interpretation Comments TOTAL PROTEIN 5.2 gm/dL 6.0-8.3 L (BEAKER) (test code = 770) ALBUMIN (BEAKER) 2.8 g/dL 3.5-5.0 L (test code = 1145) ALKALINE PHOSPHATASE 26 U/L 40-150 L (BEAKER) (test code = 346) BILIRUBIN TOTAL 0.3 mg/dL 0.2-1.2 (BEAKER) (test code = 377) SODIUM (BEAKER) (test 155 meq/L 136-145 H code = 381) POTASSIUM (BEAKER) 3.5 meq/L 3.5-5.1 (test code = 379) CHLORIDE (BEAKER) 120 meq/L 98-107 H (test code = 382) CO2 (BEAKER) (test 27 meq/L 22-29 code = 355) BLOOD UREA NITROGEN 32 mg/dL 7-21 H (BEAKER) (test code = 354) CREATININE (BEAKER) 0.88 mg/dL 0.57-1.25 (test code = 358) GLUCOSE RANDOM 253 mg/dL 70-105 H (BEAKER) (test code = 652) CALCIUM (BEAKER) 9.3 mg/dL 8.4-10.2 (test code = 697) AST (SGOT) (BEAKER) 15 U/L 5-34 (test code = 353) ALT (SGPT) (BEAKER) 18 U/L 6-55 (test code = 347) EGFR (BEAKER) (test 87 mL/min/1.73 ESTIMA TUYET GFR IS code = 1092) sq m NOT ACCURATE CREATININE CLEARANCE IN PREDICTING GLOMERULAR FILTRATION RATE . ESTIMATED GFR I S NOT APPLICABLE FOR DIALYSIS PATIEN TS. Consumer Product Advisor JENNIFER FORTE LHIV-1 Antigen with HIV-1/2 [id number] 04:08:39 Test Item Value Reference Range Interpretation Comments HIV-1 Antigen with HIV Nonreactive Nonreactive 1&2 Antibody (test code = 10009-5) RUTHIE (test code = RUTHIE) Consumer Product Advisor JENNIFER FORTE L Lab Interpretation (test Normal code = 62579-5) [facility] CenterHIV-1 ANTIGEN WITH HIV-1/2 [id number] 04:08:39 Test Item Value Reference Range Interpretation Comments HIV-1 ANTIGEN WITH HIV 1\\T\\2 Nonreactive Nonreactive ANTIBODY (2) (BEAKER) (test code = 2586) Consumer Product Advisor JENNIFER FORTE LPROTHROMBIN TIME/[id number] 03:41:31 Test Item Value Reference Range Interpretation Comments PROTIME (BEAKER) 17.6 seconds 11.9-14.2 H (test code = 759) INR (BEAKER) (test 1.47 See_Comment [Automat ed message] code = 370) The system Sim[employer] generated this result transmitted ref erence range: <=5.90. The reference range was not used to int erpret this result as normal/abnormal . RECOMMENDED COUMADIN/WARFARIN INR THERAPY RANGESSTANDARD DOSE: 2.0 - 3.0 Includes: PROPHYLAXIS for venous thrombosis, systemic embolization; TREATMENT for venous thrombosis and/or pulmonary embolus.HIGH RISK: Target INR is 2.5-3.5 for patients with mechanical heart valves.BLOOD GAS, [id number] 03:40:52 Test Item Value Reference Range Interpretation Comments PH ARTERIAL (BEAKER) (test code = 7.50 7.35-7.45 H 383) PCO2 ARTERIAL (BEAKER) (test code 35 mm Hg 35-45 = 384) PO2 ARTERIAL (BEAKER) (test code = 156 mm Hg 80-90 H 385) O2 SATURATION ARTERIAL (BEAKER) 99.1 % 96.0-97.0 H (test code = 386) HCO3 ARTERIAL (BEAKER) (test code 26 mmol/L 21-29 = 388) BASE EXCESS ARTERIAL (BEAKER) 3.0 mmol/L -2.0-3.0 (test code = 387) PATIENT TEMPERATURE (BEAKER) (test 37.8 code = 1818) FIO2 (BEAKER) (test code = 1819) 40.0 CALCIUM, [id number] 03:40:09 Test Item Value Reference Range Interpretation Comments CALCIUM IONIZED (BEAKER) (test 1.25 mmol/L 1.12-1.27 code = 698) PH, BLOOD (BEAKER) (test code = 7.51 1810) CBC W/PLT COUNT & AUTO [id number] 03:35:18 Test Item Value Reference Range Interpretation Comments WHITE BLOOD CELL COUNT (BEAKER) 17.6 K/ L 3.5-10.5 H (test code = 775) RED BLOOD CELL COUNT (BEAKER) 2.35 M/ L 4.63-6.08 L (test code = 761) HEMOGLOBIN (BEAKER) (test code = 7.2 GM/DL 13.7-17.5 L 410) HEMATOCRIT (BEAKER) (test code = 23.9 % 40.1-51.0 L 411) MEAN CORPUSCULAR VOLUME (BEAKER) 101.7 fL 79.0-92.2 H (test code = 753) MEAN CORPUSCULAR HEMOGLOBIN 30.6 pg 25.7-32.2 (BEAKER) (test code = 751) MEAN CORPUSCULAR HEMOGLOBIN CONC 30.1 GM/DL 32.3-36.5 L (BEAKER) (test code = 752) RED CELL DISTRIBUTION WIDTH 15.0 % 11.6-14.4 H (BEAKER) (test code = 412) PLATELET COUNT (BEAKER) (test 329 K/CU MM 150-450 code = 756) MEAN PLATELET VOLUME (BEAKER) 10.5 fL 9.4-12.4 (test code = 754) NUCLEATED RED BLOOD CELLS 0 /100 WBC 0-0 (BEAKER) (test code = 413) NEUTROPHILS RELATIVE PERCENT 82 % (BEAKER) (test code = 429) LYMPHOCYTES RELATIVE PERCENT 10 % (BEAKER) (test code = 430) MONOCYTES RELATIVE PERCENT 5 % (BEAKER) (test code = 431) EOSINOPHILS RELATIVE PERCENT 0 % (BEAKER) (test code = 432) BASOPHILS RELATIVE PERCENT 0 % (BEAKER) (test code = 437) NEUTROPHILS ABSOLUTE COUNT 14.42 K/ L 1.78-5.38 H (BEAKER) (test code = 670) LYMPHOCYTES ABSOLUTE COUNT 1.75 K/ L 1.32-3.57 (BEAKER) (test code = 414) MONOCYTES ABSOLUTE COUNT (BEAKER) 0.93 K/ L 0.30-0.82 H (test code = 415) EOSINOPHILS ABSOLUTE COUNT 0.03 K/ L 0.04-0.54 L (BEAKER) (test code = 416) BASOPHILS ABSOLUTE COUNT (BEAKER) 0.05 K/ L 0.01-0.08 (test code = 417) IMMATURE GRANULOCYTES-RELATIVE 3 % 0-1 H PERCENT (BEAKER) (test code = 2801) POCT-GLUCOSE [id number] 00:03:03 Test Item Value Reference Range Interpretation Comments POC-GLUCOSE METER 257 mg/dL 70-110 H : TESTED Amilcar Trevizo [facility] 6720 (BEAKER) (test code = [facility] [place] [place], 1538) [address]: Consumer Product Advisor/Techni bobby ID = [id number] for NEHAL CAVAZOS [id number] 21:20:12 Test Item Value Reference Range Interpretation Comments PHOSPHORUS (BEAKER) (test code = 2.3 mg/dL 2.3-4.7 604) Consumer Product Advisor ID - CRISTOFER ALBUPMKMQV4158-56-60 21:20:11 Test Item Value Reference Range Interpretation Comments MAGNESIUM (BEAKER) (test code = 2.3 mg/dL 1.6-2.6 627) Consumer Product Advisor ID - CRISTOFER MBASIC METABOLIC [id number] 21:20:10 Test Item Value Reference Range Interpretation Comments SODIUM (BEAKER) 155 meq/L 136-145 H (test code = 381) POTASSIUM (BEAKER) 4.1 meq/L 3.5-5.1 (test code = 379) CHLORIDE (BEAKER) 119 meq/L 98-107 H (test code = 382) CO2 (BEAKER) (test 20 meq/L 22-29 L code = 355) BLOOD UREA NITROGEN 33 mg/dL 7-21 H (BEAKER) (test code = 354) CREATININE (BEAKER) 0.84 mg/dL 0.57-1.25 (test code = 358) GLUCOSE RANDOM 290 mg/dL 70-105 H (BEAKER) (test code = 652) CALCIUM (BEAKER) 9.1 mg/dL 8.4-10.2 (test code = 697) EGFR (BEAKER) (test 92 mL/min/1.73 ESTIMA TUYET GFR IS code = 1092) sq m NOT ACCURATE CREATININE CLEARANCE IN PREDICTING GLOMERULAR FILTRATION RATE . ESTIMATED GFR I S NOT APPLICABLE FOR DIALYSIS PATIEN TS. Consumer Product Advisor ID - CRISTOFER MLACTIC ACID, [id number] 21:19:25 Test Item Value Reference Range Interpretation Comments LACTATE BLOOD ARTERIAL (2) 1.5 mmol/L 0.5-2.2 (BEAKER) (test code = 2874) Consumer Product Advisor ID - CRISTOFER MCBC (HEMOGRAM ONLY)2021-02-01 21:04:32 Test Item Value Reference Range Interpretation Comments WHITE BLOOD CELL COUNT (BEAKER) 24.3 K/ L 3.5-10.5 H (test code = 775) RED BLOOD CELL COUNT (BEAKER) 2.41 M/ L 4.63-6.08 L (test code = 761) HEMOGLOBIN (BEAKER) (test code = 7.4 GM/DL 13.7-17.5 L 410) HEMATOCRIT (BEAKER) (test code = 25.1 % 40.1-51.0 L 411) MEAN CORPUSCULAR VOLUME (BEAKER) 104.1 fL 79.0-92.2 H (test code = 753) MEAN CORPUSCULAR HEMOGLOBIN 30.7 pg 25.7-32.2 (BEAKER) (test code = 751) MEAN CORPUSCULAR HEMOGLOBIN CONC 29.5 GM/DL 32.3-36.5 L (BEAKER) (test code = 752) RED CELL DISTRIBUTION WIDTH 15.1 % 11.6-14.4 H (BEAKER) (test code = 412) PLATELET COUNT (BEAKER) (test 325 K/CU MM 150-450 code = 756) MEAN PLATELET VOLUME (BEAKER) 10.5 fL 9.4-12.4 (test code = 754) NUCLEATED RED BLOOD CELLS 0 /100 WBC 0-0 (BEAKER) (test code = 413) BLOOD GAS, [id number] 21:01:35 Test Item Value Reference Range Interpretation Comments PH ARTERIAL (BEAKER) (test code = 7.43 7.35-7.45 383) PCO2 ARTERIAL (BEAKER) (test code 30 mm Hg 35-45 L = 384) PO2 ARTERIAL (BEAKER) (test code 156 mm Hg 80-90 H = 385) O2 SATURATION ARTERIAL (BEAKER) 99.1 % 96.0-97.0 H (test code = 386) HCO3 ARTERIAL (BEAKER) (test code 19 mmol/L 21-29 L = 388) BASE EXCESS ARTERIAL (BEAKER) -4.3 mmol/L -2.0-3.0 L (test code = 387) PATIENT TEMPERATURE (BEAKER) 36.9 (test code = 1818) FIO2 (BEAKER) (test code = 1819) 40.0 Body fluid cell count with [id number] 19:56:05 Test Item Value Reference Range Interpretation Comments Appearance (test code Bloody Clear A = 9335-1) Color (test code = Red Colorless, A 6824-7) Straw RBCs (test code = 210959 See_Comment H [Automate d 69925-1) message] The system which generated this result transmitted reference range : <=1 /cu mm. The reference range was not used to interpret this result as normal/abnormal . Adjusted WBC Count 11034 See_Comment H [Automat ed (test code = 38477-1) messag e] The system which generated this result transmitted reference range : <=5 /cu mm. The reference range was not used to interpret this result as normal/abnormal . Lining Cells (test 0 See_Comment [Automat ed code = 08827-8) message] The system which generated this result transmitted reference range : <=1 /cu mm. The reference range was not used to interpret this result as normal/abnormal . % Segs (test code = 93 % 70688-9) % Lymphs (test code = 2 % 34262-2) % Monos (test code = 5 % 83241-2) % Eos (test code = 0 % 83270-5) % Baso (test code = 0 % 39657-0) Container Body Fluid EDTA Tube (test code = 2873) RUTHIE (test code = RUTHIE) Degenerated cells present. Lab Interpretation Abnormal (test code = 04808-3) [facility] [id number] 19:56:05 Test Item Value Reference Range Interpretation Comments APPEARANCE FLUID Bloody Clear A (BEAKER) (test code = 510) COLOR FLUID (BEAKER) Red Colorless, Straw A (test code = 511) RBC FLUID (BEAKER) 139626 /cu mm See_Comment H [Automa tuyet (test code = 513) message] T he system which generated this result transmitted reference range : <=1. The refere nce range was not u sed to interpret th is result as normal/abnormal . ADJUSTED WBC FLUID 86669 /cu mm See_Comment H [Automat ed (BEAKER) (test code message] The system = 1691) which generated this result transmitted reference range : <=5. The refere nce range was not u sed to interpret th is result as normal/abnormal . LINING CELLS 0 /cu mm See_Comment [Automated (BEAKER) (test code message] The system = 1590) which generated this result transmitted reference range : <=1. The refere nce range was not u sed to interpret th is result as normal/abnormal . NEUTROPHILS FLUID 93 % (BEAKER) (test code = 1656) LYMPHS FLUID 2 % (BEAKER) (test code = 488) MONO/MACROPHAGE 5 % FLUID (BEAKER) (test code = 489) EOSINOPHILS FLUID 0 % (BEAKER) (test code = 491) BASO FLUID (BEAKER) 0 % (test code = 492) CONTAINER BODY FLUID EDTA Tube (BEAKER) (test code = 2873) Degenerated cells present.LACTIC ACID, [id number] 18:37:43 Test Item Value Reference Range Interpretation Comments LACTATE BLOOD ARTERIAL (2) 3.0 mmol/L 0.5-2.2 H (BEAKER) (test code = 2874) Consumer Product Advisor ID - CRISTOFER MPOCT-GLUCOSE [id number] 18:30:19 Test Item Value Reference Range Interpretation Comments POC-GLUCOSE METER 246 mg/dL 70-110 H : TESTED A T [facility] 6720 (BEAKER) (test code = DIONI [place], 1538) [address]: Consumer Product Advisor/Techni bobby ID = [id number] for Filomena davila (contract), Sarah fischer Hemoglobin and [id number] 18:18:53 Test Item Value Reference Range Interpretation Comments Hemoglobin (test code 8.0 See_Comment L [Auto mated = 786-4) message] The system which generated this result transmit tuyet reference range : 13.7 - 17.5 GM/ DL. The reference range was not u sed to interpret th is result as normal/abnormal . Hematocrit (test code 27.2 % 40.1-51.0 L = 4544-3) RUTHIE (test code = RUTHIE) Consumer Product Advisor ID - [id number] Lab Interpretation Abnormal (test code = 67171-6) [facility] Center[facility]MO[facility] AND [id number] 18:18:53 Test Item Value Reference Range Interpretation Comments HEMOGLOBIN (BEAKER) (test code = 8.0 GM/DL 13.7-17.5 L 410) HEMATOCRIT (BEAKER) (test code = 27.2 % 40.1-51.0 L 411) Consumer Product Advisor ID - [id number] FLUID CELL COUNT WITH [id number] 18:09:06 Test Item Value Reference Range Interpretation Comments APPEARANCE FLUID Moderately Bloody Clear A (BEAKER) (test code = 510) COLOR FLUID Graciela Colorless, Straw A (BEAKER) (test code = 511) RBC FLUID (BEAKER) 6000 /cu mm See_Comment H [Automat ed (test code = 513) message] T he system which generated this result transmit tuyet reference range : <=1. The refere nce range was not u sed to interpret th is result as normal/abnormal . ADJUSTED WBC FLUID 5477 /cu mm See_Comment H [Automat ed (BEAKER) (test code message] The = 1691) system which generated this result transmit tuyet reference range : <=5. The refere nce range was not u sed to interpret th is result as normal/abnormal . LINING CELLS 0 /cu mm See_Comment [Automated (BEAKER) (test code message] The = 1590) system which generated this result transmit tuyet reference range : <=1. The refere nce range was not u sed to interpret th is result as normal/abnormal . NEUTROPHILS FLUID 83 % (BEAKER) (test code = 1656) LYMPHS FLUID 2 % (BEAKER) (test code = 488) MONO/MACROPHAGE 15 % FLUID (BEAKER) (test code = 489) EOSINOPHILS FLUID 0 % (BEAKER) (test code = 491) BASO FLUID (BEAKER) 0 % (test code = 492) CONTAINER BODY Sterile Container FLUID (BEAKER) (test code = 2873) Amylase Peritoneal [id number] 17:09:06 Test Item Value Reference Range Interpretation Comments AMYLASE, PERITONEAL 78 U/L See Comment FLUID (test code = 8556136) RUTHIE (test code = Amylase activity in RUTHIE) peritoneal fluids of non-pancreatic origin is often less than or equal to the amylase activity in blood, whereas elevated amylase activity has been reported in fluid of pancreatic origin (five-folds or higher compared to contemporaneously collected blood specimen).This test has been modified from the fund controller's instructions and its performance characteristics were determined by [facility]. The laboratory is regulated under CLIA as qualified to perform high-complexity testing. This test has not been cleared or approved by the U.S. Food and Drug Administration. The reference intervals and other method performance specifications are unavailable for amylase in peritoneal fluid. Comparison of this result with the blood amylase is recommended. [facility] Center[facility]YLASE PERITONEAL [id number] 17:09:06 Test Item Value Reference Range Interpretation Comments AMYLASE, PERITONEAL FLUID (test code = 78 U/L See Comment [id number]) Amylase activity in peritoneal fluids of non-pancreatic origin is often less than or equal to the amylase activity in blood, whereas elevated amylase activity has been reported in fluid of pancreatic origin (five-folds or higher compared to contemporaneously collected blood specimen).This test has been modified from the fund controller's instructions and its performance characteristics were determined by [facility]. The laboratory is regulated under CLIA as qualified to perform high-complexity testing. This test has not been cleared or approved by the U.S. Food and Drug Administration. The reference intervals and other method performance specifications are unavailable for amylase in peritoneal fluid. Comparison of this result with the blood amylase is recommended.[id number] 17:05:20 Test Item Value Reference Range Interpretation Comments Lipase (test code = 140 U/L 8-78 H 3040-3) RUTHIE (test code = RUTHIE) Consumer Product Advisor ID - CRISTOFER M Lab Interpretation (test Abnormal code = 20830-5) [facility] CenterLIPASE2021-12-23 17:05:20 Test Item Value Reference Range Interpretation Comments LIPASE (BEAKER) (test code = 749) 140 U/L 8-78 H Consumer Product Advisor ID - CRISTOFER [id number] 16:26:54 Test Item Value Reference Range Interpretation Comments PHOSPHORUS (BEAKER) (test code = 3.7 mg/dL 2.3-4.7 604) Consumer Product Advisor ID - CRISTOFER EWBZFWOQIK6993-35-32 16:26:53 Test Item Value Reference Range Interpretation Comments MAGNESIUM (BEAKER) (test code = 1.9 mg/dL 1.6-2.6 627) Consumer Product Advisor ID - CRISTOFER MCOMPREHENSIVE METABOLIC [id number] 16:26:52 Test Item Value Reference Range Interpretation Comments TOTAL PROTEIN 5.3 gm/dL 6.0-8.3 L (BEAKER) (test code = 770) ALBUMIN (BEAKER) 2.6 g/dL 3.5-5.0 L (test code = 1145) ALKALINE PHOSPHATASE 33 U/L 40-150 L (BEAKER) (test code = 346) BILIRUBIN TOTAL 0.4 mg/dL 0.2-1.2 (BEAKER) (test code = 377) SODIUM (BEAKER) (test 156 meq/L 136-145 H code = 381) POTASSIUM (BEAKER) 3.8 meq/L 3.5-5.1 (test code = 379) CHLORIDE (BEAKER) 119 meq/L 98-107 H (test code = 382) CO2 (BEAKER) (test 22 meq/L 22-29 code = 355) BLOOD UREA NITROGEN 31 mg/dL 7-21 H (BEAKER) (test code = 354) CREATININE (BEAKER) 0.74 mg/dL 0.57-1.25 (test code = 358) GLUCOSE RANDOM 246 mg/dL 70-105 H (BEAKER) (test code = 652) CALCIUM (BEAKER) 9.1 mg/dL 8.4-10.2 (test code = 697) AST (SGOT) (BEAKER) 23 U/L 5-34 (test code = 353) ALT (SGPT) (BEAKER) 22 U/L 6-55 (test code = 347) EGFR (BEAKER) (test 107 ESTIMATE D GFR IS code = 1092) mL/min/1.73 sq NOT ACCURA TE m CREATININE CLEARANCE IN PREDICTING GLOMERULAR FILTRATION RATE . ESTIMATED GFR I S NOT APPLICABLE FOR DIALYSIS PATIEN TS. Consumer Product Advisor ID - CRISTOFER M(CELLAVISION MANUAL DIFF)2021-02-01 16:19:24 Test Item Value Reference Range Interpretation Comments NEUTROPHILS - REL 97 % (CELLAVISION)(BEAKER) (test code = 2816) LYMPHOCYTES - REL 1 % (CELLAVISION)(BEAKER) (test code = 2817) METAMYELOCYTES - REL 1 % 0-0 H (CELLAVISION)(BEAKER) (test code = 2821) BANDS - REL (CELLAVISION)(BEAKER) 1 % 0-10 (test code = 2826) NEUTROPHILS - ABS 32.20 K/ul 1.78-5.38 H (CELLAVISION)(BEAKER) (test code = 2830) LYMPHOCYTES - ABS 0.33 K/ul 1.32-3.57 L (CELLAVISION)(BEAKER) (test code = 2831) METAMYELOCYTES - ABS 0.33 K/uL 0.00-0.00 H (CELLAVISION)(BEAKER) (test code = 2836) BANDS - ABS (CELLAVISION)(BEAKER) 0.33 K/uL 0.00-0.80 (test code = 2840) TOTAL COUNTED (BEAKER) (test code 100 = 1351) WBC MORPHOLOGY (BEAKER) (test code Normal = 487) PLT MORPHOLOGY (BEAKER) (test code Normal = 486) POLYCHROMATOPHILLIC RBCS(BEAKER) 1+ few (test code = 478) POIKILOCYTES (BEAKER) (test code = 1+ few 966) LUIS CELLS (BEAKER) (test code = 1+ few 474) ARTIFACT (CELLAVISION)(BEAKER) Present (test code = 3432) PLATELET CONCENTRATION Adequate (CELLAVISION)(BEAKER) (test code = 3438) Consumer Product Advisor ID - Mariposa Garcia comments: Slide comments:BLOOD GAS, ARTERIAL 2021-02-01 16:10:52 Test Item Value Reference Range Interpretation Comments PH ARTERIAL (BEAKER) (test code = 7.28 7.35-7.45 L 383) PCO2 ARTERIAL (BEAKER) (test code 42 mm Hg 35-45 = 384) PO2 ARTERIAL (BEAKER) (test code 165 mm Hg 80-90 H = 385) O2 SATURATION ARTERIAL (BEAKER) 98.9 % 96.0-97.0 H (test code = 386) HCO3 ARTERIAL (BEAKER) (test code 19 mmol/L 21-29 L = 388) BASE EXCESS ARTERIAL (BEAKER) -7.0 mmol/L -2.0-3.0 L (test code = 387) PATIENT TEMPERATURE (BEAKER) 36.4 (test code = 1818) FIO2 (BEAKER) (test code = 1819) 80.0 CBC W/PLT COUNT & AUTO [id number] 15:56:39 Test Item Value Reference Range Interpretation Comments WHITE BLOOD CELL COUNT (BEAKER) 33.2 K/ L 3.5-10.5 H (test code = 775) RED BLOOD CELL COUNT (BEAKER) 2.94 M/ L 4.63-6.08 L (test code = 761) HEMOGLOBIN (BEAKER) (test code = 9.1 GM/DL 13.7-17.5 L 410) HEMATOCRIT (BEAKER) (test code = 30.9 % 40.1-51.0 L 411) MEAN CORPUSCULAR VOLUME (BEAKER) 105.1 fL 79.0-92.2 H (test code = 753) MEAN CORPUSCULAR HEMOGLOBIN 31.0 pg 25.7-32.2 (BEAKER) (test code = 751) MEAN CORPUSCULAR HEMOGLOBIN CONC 29.4 GM/DL 32.3-36.5 L (BEAKER) (test code = 752) RED CELL DISTRIBUTION WIDTH 15.0 % 11.6-14.4 H (BEAKER) (test code = 412) PLATELET COUNT (BEAKER) (test 371 K/CU MM 150-450 code = 756) MEAN PLATELET VOLUME (BEAKER) 10.5 fL 9.4-12.4 (test code = 754) NUCLEATED RED BLOOD CELLS 0 /100 WBC 0-0 (BEAKER) (test code = 413) RAD, ABDOMEN/KUB, 1 VIEW [id number] 15:19:00Reason for exam:->s.p NGT [facility] : 1960 Sex: MFINAL REPORT RAD, ABDOMEN/KUB, 1 VIEW AP INDICATION: s.p NGT COMPARISON: None TECHNIQUE: Limited portable radiograph of the lower chest and upper abdomen was acquired for purposes of evaluating tube placement FINDINGS/IMPRESSION:NG side-port overlies the stomach Signed: Paige Seay MDRort Verified Date/Time: 02/01/2021 15:19:35 Reading Location: [facility] Radiology Reading Room RAD, CHEST, 1 VIEW, NON [id number] 15:14:00Reason for exam:->s/p intubation and decorticationShould this be performed at the bedside?->Yes [facility] VASU SPAULDING : 1960 Sex: MFINAL REPORT RAD, CHEST, 1 VIEW, NON DEPT INDICATION: s/p intubation and decortication COMPARISON: Prior day's exam FINDINGS: Portable frontal view of the chest. IMPRESSION: Support Lines: Central catheter tip overlies the atriocaval junction. NG tube descends below the diaphragm. Two left-sided chest tubes. ET tube tip is 5.8 cm above the calvin. Lungs and pleura: Subcutaneous emphysema along the left chest wall. Significant decreased pleural effusion. No significant pneumothorax. Heart and mediastinum: Stable contours. Stable surgical changes. Additional findings: None. Signed: Paige Seay Verified Date/Time: 02/01/2021 15:14:10 Reading Location: [facility] Radiology Reading Room HGB/HCT (H&H)-Stat [id number] 14:17:23 Test Item Value Reference Range Interpretation Comments Hemoglobin (test code = 8.5 See_Comment L [Au tomated message] 786-4) The system SimPrint[employer] generated this result transmitted ref erence range: 13.0 - 1 6.8 GM/DL. The refe rence range was not u sed to interpret this result as normal/abnor mal. Hematocrit (test code = 25.0 % 40.0-50.0 L 4544-3) Lab Interpretation (test Abnormal code = 47596-7) [facility] Center[facility]ucose-Stat [id number] 14:17:23 Test Item Value Reference Range Interpretation Comments Glucose (test code = 2345-7) 192 mg/dL 70-110 H Lab Interpretation (test code = Abnormal 24264-6) [facility] [id number] 14:17:22 Test Item Value Reference Range Interpretation Comments Sodium (test code = 2951-2) 157 meq/L 136-145 H Lab Interpretation (test code = Abnormal 83559-3) [facility] CenterPotassium-Stat [id number] 14:16:31 Test Item Value Reference Range Interpretation Comments Potassium (test code = 2823-3) 3.7 meq/L 3.6-5.5 Lab Interpretation (test code = Normal 62101-6) [facility] CenterCY[facility]Y2021-12-23 10:41:12Medical Cytology Report Case: [id number] Authorizing Provider: Nila Monroe MD Collected: 03:01 PM Ordering Location: [place] [address] ICU Received: 01/31/2021 08:36 AM Pathologist: Pina Aaron MD Specimen: Pleural, Left PLEURAL, LEFT, FLUID (CYTOSPINS AND CELL BLOCK): - LIMITED BY OBSCURING ACUTE INFLAMMATION - NEGATIVE FOR MALIGNANCY (SEE COMMENT) Signing Pathologist Direct Phone Line: [phone] signed by Pina Aaron MD on 02/01/2021 at 10:41 AMThe specimen is composed of abundant acute inflammation and fibrin. These findings are compatible with an empyema. The specimen is limited by obscuring inflammation, but no malignant cells are identified. 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 [facility], Department of Pathology, [address] [place] [address], [place] [address], [facility], Department of [facility], [address] [place] [address], [facility], Department of Pathology, [address] [place] [address], NSMOVHICQJXKF METABOLIC [id number] 08:20:55 Test Item Value Reference Range Interpretation Comments TOTAL PROTEIN 6.3 gm/dL 6.0-8.3 (BEAKER) (test code = 770) ALBUMIN (BEAKER) 2.7 g/dL 3.5-5.0 L (test code = 1145) ALKALINE PHOSPHATASE 37 U/L 40-150 L (BEAKER) (test code = 346) BILIRUBIN TOTAL 0.4 mg/dL 0.2-1.2 (BEAKER) (test code = 377) SODIUM (BEAKER) (test 151 meq/L 136-145 H code = 381) POTASSIUM (BEAKER) 4.0 meq/L 3.5-5.1 (test code = 379) CHLORIDE (BEAKER) 115 meq/L 98-107 H (test code = 382) CO2 (BEAKER) (test 30 meq/L 22-29 H code = 355) BLOOD UREA NITROGEN 32 mg/dL 7-21 H (BEAKER) (test code = 354) CREATININE (BEAKER) 0.70 mg/dL 0.57-1.25 (test code = 358) GLUCOSE RANDOM 168 mg/dL 70-105 H (BEAKER) (test code = 652) CALCIUM (BEAKER) 9.7 mg/dL 8.4-10.2 (test code = 697) AST (SGOT) (BEAKER) 22 U/L 5-34 (test code = 353) ALT (SGPT) (BEAKER) 26 U/L 6-55 (test code = 347) EGFR (BEAKER) (test 114 ESTIMATE D GFR IS code = 1092) mL/min/1.73 sq NOT ACCURA TE m CREATININE CLEARANCE IN PREDICTING GLOMERULAR FILTRATION RATE . ESTIMATED GFR I S NOT APPLICABLE FOR DIALYSIS PATIEN TS. Consumer Product Advisor ID - CRISTOFER [id number] 08:16:26 Test Item Value Reference Range Interpretation Comments PHOSPHORUS (BEAKER) (test code = 1.8 mg/dL 2.3-4.7 L 604) Consumer Product Advisor ID - CRISTOFER LFBEPNKZHK8621-25-09 08:16:25 Test Item Value Reference Range Interpretation Comments MAGNESIUM (BEAKER) (test code = 1.8 mg/dL 1.6-2.6 627) Consumer Product Advisor ID - CRISTOFER [facility] (HEMOGRAM ONLY)2021-02-01 07:53:16 Test Item Value Reference Range Interpretation Comments WHITE BLOOD CELL COUNT (BEAKER) 22.6 K/ L 3.5-10.5 H (test code = 775) RED BLOOD CELL COUNT (BEAKER) 3.24 M/ L 4.63-6.08 L (test code = 761) HEMOGLOBIN (BEAKER) (test code = 10.1 GM/DL 13.7-17.5 L 410) HEMATOCRIT (BEAKER) (test code = 32.8 % 40.1-51.0 L 411) MEAN CORPUSCULAR VOLUME (BEAKER) 101.2 fL 79.0-92.2 H (test code = 753) MEAN CORPUSCULAR HEMOGLOBIN 31.2 pg 25.7-32.2 (BEAKER) (test code = 751) MEAN CORPUSCULAR HEMOGLOBIN CONC 30.8 GM/DL 32.3-36.5 L (BEAKER) (test code = 752) RED CELL DISTRIBUTION WIDTH 14.7 % 11.6-14.4 H (BEAKER) (test code = 412) PLATELET COUNT (BEAKER) (test 385 K/CU MM 150-450 code = 756) MEAN PLATELET VOLUME (BEAKER) 10.3 fL 9.4-12.4 (test code = 754) NUCLEATED RED BLOOD CELLS 0 /100 WBC 0-0 (BEAKER) (test code = 413) POCT-GLUCOSE [id number] 07:06:58 Test Item Value Reference Range Interpretation Comments POC-GLUCOSE METER 150 mg/dL 70-110 H : TESTED A T [facility] 6720 (BEAKER) (test code = DIONI SABA, 1538) [address]: Consumer Product Advisor/Techni bobby ID = [id number] for MARIAELENA MONTGOMERY HAL SARS-COV2/RT-PCR ([facility])2021-02-01 06:34:11 Test Item Value Reference Range Interpretation Comments SARS-COV2/RT-PCR (test code = Negative Negative 1541527) Negative result for this test determines that SARS-CoV-2 RNA was not present in the specimen above the Limit of Detection (LOD). However, Negative results do not preclude SARS-CoV-2 infection and should not be used as the sole basis for treatment or patient management decisions. Negative results must be combined with clinical observations, patient history, and epidemiological information. A false negative result may occur if a specimen is improperly collected, transported, or handled. A false negative result should be considered if patient's recent exposures or clinical presentation indicate that COVID-19 (SARS-CoV-2) is likely and diagnostic tests for other causes of illness are negative. Re-testing should be considered in cases of suspected false negatives.The limit of detection for this assay is 100 copies/mL.This SARS-CoV-2 test is a real-time RT_PCR test intended for the qualitative detection of nucleic acid from SARS-CoV-2 in a nasopharyngeal swab specimen collected from individuals suspected of COVID-19 by their healthcare provider.This test has not been Food and Drug Administration (FDA) cleared or approved. This is a modified version of an approved Emergency Use Authorization (EUA) and is in the process of review by the FDA. Once authorized by the FDA, the issued EUA will be effective until the declaration that circumstances exist justifying the authorization of the emergency use of in vitro diagnostic tests for detection and/or diagnosis of COVID-19 is terminated under Section 564(b)(2) of the Act or the EUA is revoked under Section 564(g) of the Act.Testing was performed using t [employer] SARS-CoV-2 assay.Fact Sheet for Healthcare Providers:https://www.[employer].johnson/herminio/RT SARS-CoV-2 HCP Fact Sheet 51- 777305.pdfFact Sheet for Healthcare Patients:https://www.molecular.johnson/herminio/RT SARS-CoV-2 Patient Fact Sheet EN 51-063180H4.pdfPrepare [id number] 06:32:00 Test Item Value Reference Range Interpretation Comments Unit ABO (test code = 8269814) O Pos UNIT NUMBER (test code = 934-0) [id number] Status (test code = 8723357) READY Blood Bank Product (test code = FFP 2263) PRODUCT CODE (test code = W7519C35 933-2) [facility] Center[facility]2021-[facility] 06:08:46 Test Item Value Reference Range Interpretation Comments PHOSPHORUS (BEAKER) (test code = 1.2 mg/dL 2.3-4.7 LL 604) Consumer Product Advisor ID Soo [place] MCOMPREHENSIVE METABOLIC [id number] 06:06:58 Test Item Value Reference Range Interpretation Comments TOTAL PROTEIN 3.9 gm/dL 6.0-8.3 L (BEAKER) (test code = 770) ALBUMIN (BEAKER) 1.7 g/dL 3.5-5.0 L (test code = 1145) ALKALINE PHOSPHATASE 25 U/L 40-150 L (BEAKER) (test code = 346) BILIRUBIN TOTAL 0.2 mg/dL 0.2-1.2 (BEAKER) (test code = 377) SODIUM (BEAKER) (test 149 meq/L 136-145 H code = 381) POTASSIUM (BEAKER) 2.7 meq/L 3.5-5.1 L (test code = 379) CHLORIDE (BEAKER) 124 meq/L 98-107 H (test code = 382) CO2 (BEAKER) (test 23 meq/L 22-29 code = 355) BLOOD UREA NITROGEN 24 mg/dL 7-21 H (BEAKER) (test code = 354) CREATININE (BEAKER) 0.50 mg/dL 0.57-1.25 L (test code = 358) GLUCOSE RANDOM 128 mg/dL 70-105 H (BEAKER) (test code = 652) CALCIUM (BEAKER) 6.3 mg/dL 8.4-10.2 L (test code = 697) AST (SGOT) (BEAKER) 18 U/L 5-34 (test code = 353) ALT (SGPT) (BEAKER) 19 U/L 6-55 (test code = 347) EGFR (BEAKER) (test 168 ESTIMATE D GFR IS code = 1092) mL/min/1.73 sq NOT ACCURA TE m CREATININE CLEARANCE IN PREDICTING GLOMERULAR FILTRATION RATE . ESTIMATED GFR I S NOT APPLICABLE FOR DIALYSIS PATIEN TS. Consumer Product Advisor ID - CRISTOFER OZGWPZNAGS4110-29-01 06:02:11 Test Item Value Reference Range Interpretation Comments MAGNESIUM (BEAKER) (test code = 1.2 mg/dL 1.6-2.6 L 627) Consumer Product Advisor ID - CRISTOFER MCALCIUM, [id number] 05:19:54 Test Item Value Reference Range Interpretation Comments CALCIUM IONIZED (BEAKER) (test 1.29 mmol/L 1.12-1.27 H code = 698) PH, BLOOD (BEAKER) (test code = 7.41 1810) BLOOD GAS, [id number] 05:19:43 Test Item Value Reference Range Interpretation Comments PH ARTERIAL (BEAKER) (test code = 7.41 7.35-7.45 383) PCO2 ARTERIAL (BEAKER) (test code 50 mm Hg 35-45 H = 384) PO2 ARTERIAL (BEAKER) (test code = 139 mm Hg 80-90 H 385) O2 SATURATION ARTERIAL (BEAKER) 98.8 % 96.0-97.0 H (test code = 386) HCO3 ARTERIAL (BEAKER) (test code 31 mmol/L 21-29 H = 388) BASE EXCESS ARTERIAL (BEAKER) 5.7 mmol/L -2.0-3.0 H (test code = 387) PATIENT TEMPERATURE (BEAKER) (test 37.0 code = 1818) FIO2 (BEAKER) (test code = 1819) 60.0 CBC W/PLT COUNT & AUTO [id number] 04:58:01 Test Item Value Reference Range Interpretation Comments WHITE BLOOD CELL COUNT (BEAKER) 18.9 K/ L 3.5-10.5 H (test code = 775) RED BLOOD CELL COUNT (BEAKER) 2.57 M/ L 4.63-6.08 L (test code = 761) HEMOGLOBIN (BEAKER) (test code = 8.0 GM/DL 13.7-17.5 L 410) HEMATOCRIT (BEAKER) (test code = 25.9 % 40.1-51.0 L 411) MEAN CORPUSCULAR VOLUME (BEAKER) 100.8 fL 79.0-92.2 H (test code = 753) MEAN CORPUSCULAR HEMOGLOBIN 31.1 pg 25.7-32.2 (BEAKER) (test code = 751) MEAN CORPUSCULAR HEMOGLOBIN CONC 30.9 GM/DL 32.3-36.5 L (BEAKER) (test code = 752) RED CELL DISTRIBUTION WIDTH 14.7 % 11.6-14.4 H (BEAKER) (test code = 412) PLATELET COUNT (BEAKER) (test 353 K/CU MM 150-450 code = 756) MEAN PLATELET VOLUME (BEAKER) 10.4 fL 9.4-12.4 (test code = 754) NUCLEATED RED BLOOD CELLS 0 /100 WBC 0-0 (BEAKER) (test code = 413) NEUTROPHILS RELATIVE PERCENT 85 % (BEAKER) (test code = 429) LYMPHOCYTES RELATIVE PERCENT 8 % (BEAKER) (test code = 430) MONOCYTES RELATIVE PERCENT 5 % (BEAKER) (test code = 431) EOSINOPHILS RELATIVE PERCENT 1 % (BEAKER) (test code = 432) BASOPHILS RELATIVE PERCENT 0 % (BEAKER) (test code = 437) NEUTROPHILS ABSOLUTE COUNT 16.02 K/ L 1.78-5.38 H (BEAKER) (test code = 670) LYMPHOCYTES ABSOLUTE COUNT 1.42 K/ L 1.32-3.57 (BEAKER) (test code = 414) MONOCYTES ABSOLUTE COUNT (BEAKER) 0.85 K/ L 0.30-0.82 H (test code = 415) EOSINOPHILS ABSOLUTE COUNT 0.12 K/ L 0.04-0.54 (BEAKER) (test code = 416) BASOPHILS ABSOLUTE COUNT (BEAKER) 0.04 K/ L 0.01-0.08 (test code = 417) IMMATURE GRANULOCYTES-RELATIVE 2 % 0-1 H PERCENT (BEAKER) (test code = 2801) [id number] 04:16:43 Test Item Value Reference Range Interpretation Comments PARTIAL THROMBOPLASTIN TIME 32.2 seconds 22.5-36.0 (BEAKER) (test code = 760) PROTHROMBIN TIME/[id number] 04:16:01 Test Item Value Reference Range Interpretation Comments PROTIME (BEAKER) 19.5 seconds 11.9-14.2 H (test code = 759) INR (BEAKER) (test 1.68 See_Comment [Automat ed message] code = 370) The system [employer] generated this result transmitted ref erence range: <=5.90. The reference range was not used to int erpret this result as normal/abnormal . RECOMMENDED COUMADIN/WARFARIN INR THERAPY RANGESSTANDARD DOSE: 2.0 - 3.0 Includes: PROPHYLAXIS for venous thrombosis, systemic embolization; TREATMENT for venous thrombosis and/or pulmonary embolus.HIGH RISK: Target INR is 2.5-3.5 for patients with mechanical heart valves.PROTHROMBIN TIME/[id number] 04:15:45 Test Item Value Reference Range Interpretation Comments PROTIME (BEAKER) 20.6 seconds 11.9-14.2 H (test code = 759) INR (BEAKER) (test 1.79 See_Comment [Automat ed message] code = 370) The system [employer] generated this result transmitted ref erence range: <=5.90. The reference range was not used to int erpret this result as normal/abnormal . RECOMMENDED COUMADIN/WARFARIN INR THERAPY RANGESSTANDARD DOSE: 2.0 - 3.0 Includes: PROPHYLAXIS for venous thrombosis, systemic embolization; TREATMENT for venous thrombosis and/or pulmonary embolus.HIGH RISK: Target INR is 2.5-3.5 for patients with mechanical heart valves.POCT-GLUCOSE [id number] 00:49:31 Test Item Value Reference Range Interpretation Comments POC-GLUCOSE METER 201 mg/dL 70-110 H : TESTED A T [facility] 6720 ([employer]) (test code = [facility], 1538) 07999: Consumer Product Advisor/Techni bobby ID = [id number] for DA ULISES, HAL Type and screen, [id number] 22:31:00 Test Item Value Reference Range Interpretation Comments ABO/RH AUTOMATED (BEAKER) (test O NEGATIVE code = 2260) Ab Scrn (test code = 890-4) NEGATIVE [facility] Center[facility], [id number] 22:03:00 Test Item Value Reference Range Interpretation Comments ABO Grouping (test code = 2588) O Rh Factor (test code = 2589) NEG [facility] Center[facility]SE [id number] 21:39:59 Test Item Value Reference Range Interpretation Comments POC-GLUCOSE METER 164 mg/dL 70-110 H : TESTED A T [facility] 6720 (BEAKER) (test code = [facility], 1538) [address]: Consumer Product Advisor/Techni bobby ID = [id number] for Wa tanyaer -POWELL, RIN A POCT-GLUCOSE [id number] 21:31:37 Test Item Value Reference Range Interpretation Comments POC-GLUCOSE METER 163 mg/dL 70-110 H : TESTED Amilcar T [facility] 6720 (BEAKER) (test code = DIONI Mccullough [place], 1538) [address]: Consumer Product Advisor/Techni bobby ID = [id number] for Desiree garber (contract)Reina Blood Culture Panel(Esphion)2021-01-31 20:53:56 Test Item Value Reference Interpretation Comments Range LISTERIA MONOCYTOGENES Not detected Not detected (test code = 09869-8) STAPHYLOCOCCUS (test Not detected Not detected code = 42139-3) STAPHYLOCOCCUS AUREUS Not detected Not detected (test code = 99370-8) Streptococcus (test Not detected Not detected code = 79179-2) STREPTOCOCCUS Not detected Not detected AGALACTIAE (GROUP B) (test code = 76154-6) STREPTOCOCCUS Not detected Not detected PNEUMONIAE (test code = 02959-4) Streptococcus pyogenes Not detected Not detected (Group A) (test code = 63350-3) ACINETOBACTER Not detected Not detected BAUMANNII (test code = 87462-3) HAEMOPHILUS INFLUENZAE Not detected Not detected (test code = 80597-0) NEISSERIA MENINGITIDIS Not detected Not detected (test code = 12822-7) ENTEROBACTERIACEAE Not detected Not detected (test code = 00104-7) ENTEROBACTER CLOACOE Not detected Not detected COMPLEX (test code = 52559-8) KLEBSIELLA OXYTOCA Not detected Not detected (test code = 81367-4) KLEBSIELLA PNEUMONIAE Not detected Not detected (test code = 39629-1) PROTEUS (test code = Not detected Not detected 03867-4) SERRATIA MARCESCENS Not detected Not detected (test code = 47956-9) JANETH ALBICANS (test Detected Not detected A First line therapy: code = 61862-7) MicafunginDe -escala te based on susceptibilitie s when patient is clinically improvingID and Ophthalmologic consultations strongly recommended Reference Range : Not Detected JANETH GLABRATA (test Not detected Not detected code = 97964-3) JANETH KRUSEI (test Not detected Not detected code = 43086-4) JANETH PARAPSILOSIS Not detected Not detected (test code = 91105-2) JANETH TROPICALIS Not detected Not detected (test code = 21234-9) ESCHERICHIA COLI (test Not detected Not detected code = 43438-4) METHICILLIN-RESISTANCE GENE (test code = 14957-3) VANCOMYCIN-RESISTANCE GENE (test code = 86984-2) CARBAPENEM-RESISTANCE GENE (test code = 81276-6) ENTEROCOCCUS (test Not detected Not detected code = 65104-9) PSEUDOMONAS AERUGINOSA Not detected Not detected (test code = 44385-4) RUTHIE (test code = RUTHIE) Other bacteria and resistance markers not targeted by this PCR panel cannot be excluded; therefore clinical correlation and follow up of serology, culture results, and other molecular studies is required. The results are not intended to be used as the sole means for clinical diagnosis or patient management decisions. This sample was tested at the [facility] using the Attolight Blood Culture ID Panel. It is FDA cleared and has been verified and approved by the [facility] for clinical use. This laboratory is CLIA-certified and [employer] [place] [employer] (CAP)-accredited to perform high complexity testing. Lab Interpretation Abnormal (test code = 17131-9) [facility] CenterBLOOD CULTURE IDENTIFICATION [id number] 20:53:56 Test Item Value Reference Interpretation Comments Range LISTERIA MONOCYTOGENES Not detected Not detected (test code = 0911981) STAPHYLOCOCCUS (test Not detected Not detected code = 2443852) STAPHYLOCOCCUS AUREUS Not detected Not detected (test code = 7011184) STREPTOCOCCUS (test Not detected Not detected code = 7309719) STREPTOCOCCUS Not detected Not detected AGALACTIAE (GROUP B) (test code = 8440568) STREPTOCOCCUS Not detected Not detected PNEUMONIAE (test code = 7722207) STREPTOCOCCUS PYOGENES Not detected Not detected (GROUP A) (test code = 2311094) ACINETOBACTER BAUMANNII Not detected Not detected (test code = 3957463) HAEMOPHILUS INFLUENZAE Not detected Not detected (test code = 8781232) NEISSERIA MENINGITIDIS Not detected Not detected (test code = 1228209) ENTEROBACTERIACEAE Not detected Not detected (test code = 5805682) ENTEROBACTER CLOACOE Not detected Not detected COMPLEX (test code = 7545910) KLEBSIELLA OXYTOCA Not detected Not detected (test code = 4958593) KLEBSIELLA PNEUMONIAE Not detected Not detected (test code = 1650) PROTEUS (test code = Not detected Not detected 9272333) SERRATIA MARCESCENS Not detected Not detected (test code = 7122274) JANETH ALBICANS (test Detected Not detected A First line therapy: code = 6280694) MicafunginDe -escalat e based on susceptibilitie s when patient is clinically improvingID and Ophthalmologic consultations strongly recomm ended Reference Range : Not Detected JANETH GLABRATA (test Not detected Not detected code = 6028071) JANETH KRUSEI (test Not detected Not detected code = 8856484) JANETH PARAPSILOSIS Not detected Not detected (test code = 0318271) JANETH TROPICALIS Not detected Not detected (test code = 2626384) ESCHERICHIA COLI (test Not detected Not detected code = 0565741) METHICILLIN-RESISTANCE GENE (test code = 1803738) VANCOMYCIN-RESISTANCE GENE (test code = 5745684) CARBAPENEM-RESISTANCE GENE (test code = 4869823) ENTEROCOCCUS-BEAKER Not detected Not detected (test code = 4542322) PSEUDOMONAS Not detected Not detected AERUGINOSA-BEAKER (test code = 9418850) Other bacteria and resistance markers not targeted by this PCR panel cannot be excluded; therefore clinical correlation and follow up of serology, culture results, and other molecular studies is required. The results are not intended to be used as the sole means for clinical diagnosis or patient management decisions. This sample was tested at the [facility] using the Attolight Blood Culture ID Panel. It is FDA cleared and has been verified and approved by the [facility] for clinical use. This laboratory is CLIA-certified and College ofAmerican Pathologists (CAP)-accredited to perform high complexity testing.U/S, ABDOMINAL, [id number] 17:16:00Abdomen limited area? Add comment if clarification is needed.->LiverReason for exam:->r/o cirrhosis [facility] : 1960 Sex: MFINAL REPORT Abdominal ultrasound dated 01/31/2021omment: Real-time transabdominal ultrasound of the right upper quadrant abdomen was performed. Liver is normal in size and measures 15.7 cm in length. The echogenicity of the liver is heterogeneous. No focal lesion is noted in the liver. Gallbladder is somewhat distended. No gallstone is present. No biliary dilatation is seen. Common bile duct measures 5 mm in diameter. Main portal vein measures 9 mm in diameter. Pancreas is incomplete visualized. Right kidney measures 11.9 x 6.3 x 6.9 cm. Echogenicity of the right kidney is normal. A 4.4x 3.8 x 4 cm cyst is seen in the upper pole right kidney. No ascites is present in the abdomen. Abdom inal aorta is normal in caliber. IVC and Hepatic veins are patent. Impression: 1. Heterogeneous appearing liver without suspicious hepatic mass.2. Right renal cyst. Signed: Jacob Dennis MDReport Verified Date/Time: 01/31/2021 17:16:42 2D Echo W/O Doppler(No Doppler)2021-01-31 16:39:59Ejection FractionSLEH ECHO HEARTLAB MKCKESSON CPACSCHI [facility] Medical CenterLegionella antigen, [id number] 16:20:02 Test Item Value Reference Range Interpretation Comments Legionella Urine Negative - see Negative for L. Antigen (test code comment pneumophi la = 04877-3) serogroup 1 ant igen, suggesting no r ecent or current infe ction with this serog roup. Legionellosis c annot be ruled out si nce other serogroup s and species may cau se disease. [facility] CenterLEGIONELLA ANTIGEN, [id number] 16:20:02 Test Item Value Reference Range Interpretation Comments L. PNEUMOPHILA Negative - see Negative fo r L. SEROGP 1 UR AG comment pneumophila (BEAKER) (test code serogrou p 1 antigen, = 1156) suggesting no r ecent or current infe ction with this serog roup. Legionellosis c annot be ruled out si nce other serogroup s and species may cau se disease. Hepatitis C PCR, [id number] 15:10:14 Test Item Value Reference Range Interpretation Comments HCV PCR, Quantitative [id number] See_Comment H [Auto mated (test code = 43440-1) naliniag e] The system which generated this result transmitted reference range : <15 IU/mL. The reference range was not used to interpret this result as normal/abnormal . RUTHIE (test code = RUTHIE) This test uses a Real-Time Polymerase Chain Reaction (RT-PCR) methodology and was performed using VERNA Ampliprep/VERNA TaqMan HCV test kit version 2.0 ([employer]). Reportable range for this assay is 15 - 100,000,000 IU per mL (1.18 - 8.00 Log IU/mL). Lab Interpretation Abnormal (test code = 73803-5) [facility] CenterHEPATITIS C PCR, [id number] 15:10:14 Test Item Value Reference Range Interpretation Comments HCV NUMERIC RESULT (BEAKER) [id number] IU/mL <15 H (test code = 2700) This test uses a Real-Time Polymerase Chain Reaction (RT-PCR) methodology and was performed using VERNA Ampliprep/VERNA TaqMan HCV test kit version 2.0 ([employer]).Reportable range for this assay is 15 - 100,000,000 IU per mL (1.18 - 8.00 Log IU/mL).CT, CHEST, WITH [id number] 12:46:00 Unlisted Reason for Exam - Click Yes and Enter Reason Below->No [facility]AS[facility] SPAULDING : 1960 Sex: MFINAL REPORT TECHNIQUE: CT of the chest, abdomen, and pelvis WITH intravenous contrast andWITHOUT oral contrast. Dose modulation, iterative reconstruction, and/or weight-based adjustment of the mA/kV was utilized to reduce the radiation dose to as low as reasonably achievable. INDICATION: Ab dominal distension. Pneumonia, PE suspected, high pretest probability (after talking to the technologist, the resident stated that appear protocol CT was not desired. COMPARISON: CT from 01/26/2021. FINDINGS: Evaluation of the abdomen is suboptimal due to respiratory motion artifact in the patient's arms by their side. LINES/TUBES: None. LUNGS AND AIRWAYS: Evaluation of the lung parenchyma is suboptimal due to motion artifact. There is scattered atelectasis throughout the right lung, worst in the right lower lobe. A majority of the left lung is collapsed. There is narrowing of the left lower lobe bronchus. A nodule in the anterior right upper lobe is new compared to the examination from 01/27/2020and measures 0.6 cm. Given the rapid development, this is most likely due to atelectasis. PLEURA: Large, loculated left pleural effusion with hyperenhancement the adjacent lung has increased in size compared to 01/26/2021. Trace right pleural effusion. HEART AND MEDIASTINUM: The visualized thyroid glan d is normal. No significant mediastinal, hilar, or axillary lymphadenopathy. A right perihilar lymphnode measures 1 cm in short axis dimension. The heart and pericardium are within normal limits. HEPATOBILIARY: No focal hepatic lesions. Gallbladder is unremarkable. No biliary ductal dilatation.SPLEEN: No splenomegaly.PANCREAS: No focal masses or ductal dilatation. ADRENALS: A right adrenal nodule measures 1.3 cm, and a left adrenal nodule measures 1.2 cm.KIDNEYS/URETERS: No hydronephrosis, stones, or masses. A right upper pole renal lesion measures 4.4 cm and is most likely a cyst since it measured fluid density on the prior noncontrast CT. It is suboptimally evaluated on this examination due to the patient's arms being by their side. PELVIC ORGANS/BLADDER: The bladder is decompressed by a Foleycatheter. PERITONEUM/RETROPERITONEUM: Trace free fluid in the pelvis. No free air.LYMPH NODES: No lymphadenopathy.VESSELS: There is nonspecific gas in the right common femoral vein. Moderate aortoiliaccalcification. GI TRACT: There are prominent loops of small bowel in the abdomen with a gradual transition to decompressed bowel. The appendix is normal. There is more fluid than usually expected in the colon. BONES AND SOFT TISSUES: Subcutaneous fat stranding along the left chest wall. Old, healed left lateral 11th rib fracture. Moderate degenerative changes of the lumbar spine. Moderate degenerative disc changes of the partially visualized cervical spine. IMPRESSION: 1.The large, loculated left pleural effusion with pleural and adjacent lung enhancement is concerning for an empyema. Nearly the entire left lung is collapsed. 2.The subcutaneous fat stranding along the left chest wall may be reactive inflammatory change. 3.There is narrowing of the left lower lobe bronchus. After resolution of theloculated pleural effusion, a repeat CT of the chest with intravenous contrast is recommended to exclude an underlying mass. 4.There are prominent loops of small bowel in the abdomen with gradual decompression but no discrete transition. This could be due to enteritis or an adynamic ileus. There is liquid in the colon, concerning for a nonspecific diarrheal illness. 5.There are enlarged mediastinal lymph nodes which measure up to 1 cm in the right perihilar region. These are nonspecific but could bereactive. Attention on follow-up examinations is recommended. 6.Adrenal nodules measure up to 1.3 cmand are indeterminate. A follow-up CT of the abdomen with and without intravenous contrast, adrenal mass protocol, is recommended in one year to document stability and for definitive evaluation. 7.Nonspecific gas in the right common femoral vein. Signed: Jose Bright [facility]AREeport Verified Date/Time: 01/31/2021 12:46:41 CT, [id number] 12:46:00Unlisted Reason for Exam - Click Yes and Enter Reason Below->NoIs this for enterography?->NoWill this procedure require oral contrast?->No [facility] : 1960 Sex: MFINAL REPORT TECHNIQUE: CT of the chest, abdomen, and pelvis WITH intravenous contrast andWITHOUT oral contrast. Dose modulation, iterative reconstruction, and/or weight-based adjustment of the mA/kV was utilized to reduce the radiation dose to as low as reasonably achievable. INDICATION: Ab dominal distension. Pneumonia, PE suspected, high pretest probability (after talking to the technologist, the resident stated that appear protocol CT was not desired. COMPARISON: CT from 01/26/2021. FINDINGS: Evaluation of the abdomen is suboptimal due to respiratory motion artifact in the patient's arms by their side. LINES/TUBES: None. LUNGS AND AIRWAYS: Evaluation of the lung parenchyma is suboptimal due to motion artifact. There is scattered atelectasis throughout the right lung, worst in the right lower lobe. A majority of the left lung is collapsed. There is narrowing of the left lower lobe bronchus. A nodule in the anterior right upper lobe is new compared to the examination from 01/27/2020and measures 0.6 cm. Given the rapid development, this is most likely due to atelectasis. PLEURA: Large, loculated left pleural effusion with hyperenhancement the adjacent lung has increased in size compared to 01/26/2021. Trace right pleural effusion. HEART AND MEDIASTINUM: The visualized thyroid glan d is normal. No significant mediastinal, hilar, or axillary lymphadenopathy. A right perihilar lymphnode measures 1 cm in short axis dimension. The heart and pericardium are within normal limits. HEPATOBILIARY: No focal hepatic lesions. Gallbladder is unremarkable. No biliary ductal dilatation.SPLEEN: No splenomegaly.PANCREAS: No focal masses or ductal dilatation. ADRENALS: A right adrenal nodule measures 1.3 cm, and a left adrenal nodule measures 1.2 cm.KIDNEYS/URETERS: No hydronephrosis, stones, or masses. A right upper pole renal lesion measures 4.4 cm and is most likely a cyst since it measured fluid density on the prior noncontrast CT. It is suboptimally evaluated on this examination due to the patient's arms being by their side. PELVIC ORGANS/BLADDER: The bladder is decompressed by a Foleycatheter. PERITONEUM/RETROPERITONEUM: Trace free fluid in the pelvis. No free air.LYMPH NODES: No lymphadenopathy.VESSELS: There is nonspecific gas in the right common femoral vein. Moderate aortoiliaccalcification. GI TRACT: There are prominent loops of small bowel in the abdomen with a gradual transition to decompressed bowel. The appendix is normal. There is more fluid than usually expected in the colon. BONES AND SOFT TISSUES: Subcutaneous fat stranding along the left chest wall. Old, healed left lateral 11th rib fracture. Moderate degenerative changes of the lumbar spine. Moderate degenerative disc changes of the partially visualized cervical spine. IMPRESSION: 1.The large, loculated left pleural effusion with pleural and adjacent lung enhancement is concerning for an empyema. Nearly the entire left lung is collapsed. 2.The subcutaneous fat stranding along the left chest wall may be reactive inflammatory change. 3.There is narrowing of the left lower lobe bronchus. After resolution of theloculated pleural effusion, a repeat CT of the chest with intravenous contrast is recommended to exclude an underlying mass. 4.There are prominent loops of small bowel in the abdomen with gradual decompression but no discrete transition. This could be due to enteritis or an adynamic ileus. There is liquid in the colon, concerning for a nonspecific diarrheal illness. 5.There are enlarged mediastinal lymph nodes which measure up to 1 cm in the right perihilar region. These are nonspecific but could bereactive. Attention on follow-up examinations is recommended. 6.Adrenal nodules measure up to 1.3 cmand are indeterminate. A follow-up CT of the abdomen with and without intravenous contrast, adrenal mass protocol, is recommended in one year to document stability and for definitive evaluation. 7.Nonspecific gas in the right common femoral vein. Signed: Jose Bright [facility] Verified Date/Time: 01/31/2021 12:46:41 POCT-GLUCOSE [id number] 12:42:10 Test Item Value Reference Range Interpretation Comments POC-GLUCOSE METER 159 mg/dL 70-110 H : TESTED A T [facility] 6720 (BEAKER) (test code = DIONI Mccullough [place], 1538) [address]: Consumer Product Advisor/Techni bobby ID = [id number] for Ne lson (contract), Reina xis CT, BRAIN, WITHOUT [id number] 11:40:00Unlisted Reason for Exam - Click Yes and Enter Reason Below->No [facility] : 1960 Sex: MFINAL REPORT CT, BRAIN, WITHOUT CONTRAST INDICATION: Altered mental status TECHNIQUE: Noncontrast axial imaging was obtained from the vertex to the skull base. Axial images were reconstructedusing a bone algorithm. DOSE REDUCTION: Dose modulation, iterative reconstruction, and/or weight-based adjustment of the mA/kV was utilized to reduce the radiation dose to as low as reasonably achievable. COMPARISON: None. FINDINGS:Limited by motion artifact.Cerebral parenchyma: Diffuse parenchymal volume loss. Appearance of the white matter suggests chronic microvascular disease.Midline structures: Normally positioned.Cerebellum and brainstem: Commensurate volume loss.Ventricles: Normal volume.Extra-axial spaces: Unremarkable. Calvarium and skull base: Intact.Paranasal sinuses and mastoid air cells: Visible chambers are clear.Orbital contents: Included portions unremarkable. Additional findings: N one. IMPRESSION: Chronic involutional changes without acute intracranial abnormality. If there is persistent clinical concern for intracranial pathology, MR examination is recommended for further characterization. Signed: JR Rodriguez Robert MDReport Verified Date/Time: 01/31/2021 11:40:21 Reading Location: [address] Neuro Reading Room LACTIC ACID, [id number] 11:06:55 Test Item Value Reference Range Interpretation Comments LACTATE BLOOD 0.9 mmol/L 0.5-2.2 Specimen sligh y ARTERIAL (2) (BEAKER) hemoly zed (test code = 2874) Consumer Product Advisor ID - REANNA JasmineQEqtldqa3457-23-85 10:54:47 Test Item Value Reference Range Interpretation Comments Ammonia (test code = 30 See_Comment [Autom ated 13905-7) message] The system which generated this result transmit tuyet reference range : 18 - 72 mol/L . The reference range was not u sed to interpret th is result as normal/abnormal . RUTHIE (test code = RUTHIE) Consumer Product Advisor ID - CRISTOFER M Lab Interpretation Normal (test code = 38291-7) [facility] CenterAMMONIA2021-12-22 10:54:47 Test Item Value Reference Range Interpretation Comments AMMONIA (BEAKER) (test code = 348) 30 mol/L 18-72 Consumer Product Advisor ID - CRISTOFER MLactate dehydrogenase (LDH)2021-01-31 10:30:23 Test Item Value Reference Range Interpretation Comments LDH (test code = 2532-0) 305 U/L 125-220 H RUTHIE (test code = RUTHIE) Consumer Product Advisor ID - REANNA L Lab Interpretation (test Abnormal code = 31391-1) [facility] CenterLACTATE DEHYDROGENASE (LDH)2021-01-31 10:30:23 Test Item Value Reference Range Interpretation Comments LACTATE DEHYDROGENASE (BEAKER) (test 305 U/L 125-220 H code = 635) Consumer Product Advisor ID - REANNA LTSH/Free T4 If Crbiepgpw7390-35-31 10:07:49 Test Item Value Reference Range Interpretation Comments TSH (test code = 2.329 See_Comment [Automated 64603-9) message] The system which generated this result transmit tuyet reference range : 0.350 - 4.940 uIU/mL. The reference range was not used to interpret this result as normal/abnormal . RUTHIE (test code = RUTHIE) Consumer Product Advisor ID - REANNA L Lab Interpretation Normal (test code = 57840-4) [facility] CenterTSH/FREE T4 IF [id number] 10:07:49 Test Item Value Reference Range Interpretation Comments THYROID STIMULATING HORMONE 2.329 uIU/mL 0.350-4.940 (BEAKER) (test code = 772) Consumer Product Advisor ID - REANNA LLactate dehydrogenase (LDH), body [id number] 10:01:45 Test Item Value Reference Range Interpretation Comments LDH, Fluid (test 3170 U/L code = 26394-1) RUTHIE (test code = Absence of reference RUTHIE) range indicates that normals have not been defined.Assay performance has not been validated for this type of specimen. Consumer Product Advisor ID - JOSE L [facility] CenterLACTATE DEHYDROGENASE (LDH), BODY [id number] 10:01:45 Test Item Value Reference Range Interpretation Comments LACTATE DEHYDROGENASE FLUID (BEAKER) 3170 U/L (test code = 634) Absence of reference range indicates that normals have not been defined.Assay performance has not been validated for this type of specimen.Consumer Product Advisor ID - JOSE LPROTEIN, BODY [id number] 09:44:03 Test Item Value Reference Range Interpretation Comments PROTEIN FLUID (BEAKER) (test code = 4.3 g/dL 579) Absence of reference range indicates that normals have not been defined.Assay performance has not been validated for this type of specimen.Consumer Product Advisor ID - JOSE LGLUCOSE, BODY [id number] 09:43:43 Test Item Value Reference Range Interpretation Comments GLUCOSE, BODY FLUID (BEAKER) (test < mg/dL code = 1528) Absence of reference range indicates that normals have not been defined.Assay performance has not been validated for this type of specimen.Consumer Product Advisor ID - JOSE LAmylase, body [id number] 09:41:40 Test Item Value Reference Range Interpretation Comments Amylase, Fluid (test 70 U/L code = 1795-4) RUTHIE (test code = Absence of reference RUTHIE) range indicates that normals have not been defined.Assay performance has not been validated for this type of specimen. Consumer Product Advisor ID - JOSE L [facility] CenterAM[facility]ASE, BODY [id number] 09:41:40 Test Item Value Reference Range Interpretation Comments AMYLASE FLUID (BEAKER) (test code = 70 U/L 350) Absence of reference range indicates that normals have not been defined.Assay performance has not been validated for this type of specimen.Consumer Product Advisor ID - JOSE LRAD, ABDOMEN/KUB, 1 VIEW [id number] 09:36:00Reason for exam:- >abdominal distention [facility] : 1960 Sex: MFINAL REPORT RAD, ABDOMEN/KUB, 1 VIEW AP CLINICAL INDICATION: abdominal distention COMPARISON: None TECHNIQUE: Single, frontal radiograph of the abdomen. FINDINGS:A right femoral approach catheter terminates overlying the right iliac. The bowel gas pattern demonstrates diffuse gaseous distention of the stomach, and multiple loops of small and large bowel. Findings are concerning for ileus. Evaluation for free air is limited by portable supine technique. Within these limitations, no free air is identified. Signed: Paige Seay Verified Date/Time: 01/31/2021 09:36:34 Reading Loca tion: [facility] Radiology Reading Room Electronically signed by: PAIGE SEAY MD on01/31/2021 09:36 AMRAD, ABDOMEN/KUB, 1 VIEW AP 2021-01-31 09:29:00Reason for exam:->Enteric tube placement verification [facility] VASU SPAULDING : 1960 Sex: MFINAL REPORT RAD, ABDOMEN/KUB, 1 VIEW AP INDICATION: Enteric tube placement verification COMPARISON: None TECHNIQUE: Limited portable radiograph of the lower chest and upper abdomen was acquired for purposes of evaluating tube placement FINDINGS/IMPRESSION:NG side-port overlies the stomach Signed: Paige Seay Verified Date/Time: 01/31/2021 09:29:57 Reading Location: [facility] Radiology Reading Room Hemoglobin [id number] 09:10:35 Test Item Value Reference Range Interpretation Comments Hemoglobin A1C (test code = 4548-4) 7.6 % 4.3-6.1 H Lab Interpretation (test code = Abnormal 54286-0) [facility] CenterHEMOGLOBIN [id number] 09:10:35 Test Item Value Reference Range Interpretation Comments HEMOGLOBIN A1C (BEAKER) (test code = 7.6 % 4.3-6.1 H 368) RAD, CHEST, 1 VIEW, NON [id number] 08:07:00Reason for exam:->s/p thoracentesis w/ recent dx SLADE mass and current pneumoniaShould this be perf ormed at the bedside?->Yes [facility]ING : 1960 Sex: MFINAL REPORT RAD, CHEST, 1 VIEW, NON DEPT INDICATION: 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 IMPRESSION: Support Lines: Overlying leads Lungs and pleura: Decreased left effusion No significant pn eumothorax. Heart and mediastinum: Partially obscured by adjacent airspace and pleural disease Additional findings: None. Signed: Paige Seay Verified Date/Time: 01/31/2021 08:07:04 Reading Location: [facility] Radiology Reading Room POCT-GLUCOSE [id number] 06:23:15 Test Item Value Reference Range Interpretation Comments POC-GLUCOSE METER 168 mg/dL 70-110 H : TESTED A T [facility] 67[facility] (BEAKER) (test code = [place], 1538) [address]: Consumer Product Advisor/Techni bobby ID = [id number] for HAL DON [id number] 05:01:06 Test Item Value Reference Range Interpretation Comments MAGNESIUM (BEAKER) (test code = 1.5 mg/dL 1.6-2.6 L 627) Consumer Product Advisor ID - CRISTOFER Vázquez(CELLAVISION MANUAL DIFF)2021-01-31 03:58:20 Test Item Value Reference Range Interpretation Comments NEUTROPHILS - REL 94 % (CELLAVISION)(BEAKER) (test code = 2816) LYMPHOCYTES - REL 3 % (CELLAVISION)(BEAKER) (test code = 2817) BASOPHILS - REL 1 % (CELLAVISION)(BEAKER) (test code = 2820) MYELOCYTES - REL 1 % 0-0 H (CELLAVISION)(BEAKER) (test code = 2822) BANDS - REL (CELLAVISION)(BEAKER) 1 % 0-10 (test code = 2826) NEUTROPHILS - ABS 24.72 K/ul 1.78-5.38 H (CELLAVISION)(BEAKER) (test code = 2830) LYMPHOCYTES - ABS 0.79 K/ul 1.32-3.57 L (CELLAVISION)(BEAKER) (test code = 2831) BASOPHILS - ABS 0.26 K/uL 0.01-0.08 H (CELLAVISION)(BEAKER) (test code = 2835) MYELOCYTES-ABS 0.26 K/uL 0.00-0.00 H (CELLAVISION)(BEAKER) (test code = 2837) BANDS - ABS (CELLAVISION)(BEAKER) 0.26 K/uL 0.00-0.80 (test code = 2840) TOTAL COUNTED (BEAKER) (test code 100 = 1351) WBC MORPHOLOGY (BEAKER) (test code Normal = 487) PLT MORPHOLOGY (BEAKER) (test code Normal = 486) POLYCHROMATOPHILLIC RBCS(BEAKER) 1+ few (test code = 478) ARTIFACT (CELLAVISION)(BEAKER) Present (test code = 3432) PLATELET CONCENTRATION Adequate (CELLAVISION)(BEAKER) (test code = 3438) Consumer Product Advisor ID - Guanako Sung comments: Slide comments:CBC W/PLT COUNT & AUTO [id number] 03:58:19 Test Item Value Reference Range Interpretation Comments WHITE BLOOD CELL COUNT (BEAKER) 26.3 K/ L 3.5-10.5 H (test code = 775) RED BLOOD CELL COUNT (BEAKER) 3.26 M/ L 4.63-6.08 L (test code = 761) HEMOGLOBIN (BEAKER) (test code = 10.1 GM/DL 13.7-17.5 L 410) HEMATOCRIT (BEAKER) (test code = 32.3 % 40.1-51.0 L 411) MEAN CORPUSCULAR VOLUME (BEAKER) 99.1 fL 79.0-92.2 H (test code = 753) MEAN CORPUSCULAR HEMOGLOBIN 31.0 pg 25.7-32.2 (BEAKER) (test code = 751) MEAN CORPUSCULAR HEMOGLOBIN CONC 31.3 GM/DL 32.3-36.5 L (BEAKER) (test code = 752) RED CELL DISTRIBUTION WIDTH 14.6 % 11.6-14.4 H (BEAKER) (test code = 412) PLATELET COUNT (BEAKER) (test 476 K/CU MM 150-450 H code = 756) MEAN PLATELET VOLUME (BEAKER) 10.3 fL 9.4-12.4 (test code = 754) NUCLEATED RED BLOOD CELLS 0 /100 WBC 0-0 (BEAKER) (test code = 413) Lipid [id number] 03:31:19 Test Item Value Reference Range Interpretation Comments Triglycerides (test 145 mg/dL code = 2571-8) Cholesterol (test code 69 mg/dL = 2093-3) HDL (test code = 12 mg/dL 2085-9) LDL Calculated (test 28 mg/dL code = 86132-3) RUTHIE (test code = RUTHIE) Triglyceride Reference Range: Low Risk <150 Borderline 150-199 High Risk 200-499 Very High Risk >=500 Cholesterol Reference Range: Low Risk <200 Borderline 200-239 High Risk >240 HDL Cholesterol Reference Range: Low Risk >=60 High Risk <40 LDL Cholesterol Reference Range: Optimal <100 Near Optimal 100-129 Borderline 130-159 High 160-189 Very High >=190 Consumer Product Advisor JENNIFER Reese [facility] CenterLIPID [id number] 03:31:19 Test Item Value Reference Range Interpretation Comments TRIGLYCERIDES (BEAKER) (test code = 145 mg/dL 540) CHOLESTEROL (BEAKER) (test code = 69 mg/dL 631) HDL CHOLESTEROL (BEAKER) (test code 12 mg/dL = 976) LDL CHOLESTEROL CALCULATED (BEAKER) 28 mg/dL (test code = 633) Triglyceride Reference Range: Low Risk <150 Borderline 150-199 High Risk 200- 499 Very High Risk >=500Cholesterol Reference Range: Low Risk <200 Borderline 200-239 High Risk >240HDL Cholesterol Reference Range: Low Risk >=60 High Risk <40LDL Cholesterol Reference Range: Optimal <100 Near Optimal 100-129 Borderline 130-159 High 160-189 Very High >=190 Consumer Product Advisor JENNIFER RAYOMPREHENSIVE METABOLIC [id number] 03:31:18 Test Item Value Reference Range Interpretation Comments TOTAL PROTEIN 5.9 gm/dL 6.0-8.3 L (BEAKER) (test code = 770) ALBUMIN (BEAKER) 2.5 g/dL 3.5-5.0 L (test code = 1145) ALKALINE PHOSPHATASE 32 U/L 40-150 L (BEAKER) (test code = 346) BILIRUBIN TOTAL 0.4 mg/dL 0.2-1.2 (BEAKER) (test code = 377) SODIUM (BEAKER) (test 143 meq/L 136-145 code = 381) POTASSIUM (BEAKER) 3.7 meq/L 3.5-5.1 (test code = 379) CHLORIDE (BEAKER) 107 meq/L 98-107 (test code = 382) CO2 (BEAKER) (test 25 meq/L 22-29 code = 355) BLOOD UREA NITROGEN 56 mg/dL 7-21 H (BEAKER) (test code = 354) CREATININE (BEAKER) 1.06 mg/dL 0.57-1.25 (test code = 358) GLUCOSE RANDOM 190 mg/dL 70-105 H (BEAKER) (test code = 652) CALCIUM (BEAKER) 8.3 mg/dL 8.4-10.2 L (test code = 697) AST (SGOT) (BEAKER) 29 U/L 5-34 (test code = 353) ALT (SGPT) (BEAKER) 37 U/L 6-55 (test code = 347) EGFR (BEAKER) (test 71 mL/min/1.73 ESTIMA TUYET GFR IS code = 1092) sq m NOT ACCURATE CREATININE CLEARANCE IN PREDICTING GLOMERULAR FILTRATION RATE . ESTIMATED GFR I S NOT APPLICABLE FOR DIALYSIS PATIEN TS. Consumer Product Advisor ID - REANNA [id number] 03:31:18 Test Item Value Reference Range Interpretation Comments PHOSPHORUS (BEAKER) (test code = 1.7 mg/dL 2.3-4.7 L 604) Consumer Product Advisor ID Soo REANNA LPROTHROMBIN TIME/[id number] 03:30:13 Test Item Value Reference Range Interpretation Comments PROTIME (BEAKER) 15.7 seconds 11.9-14.2 H (test code = 759) INR (BEAKER) (test 1.27 See_Comment [Automat ed message] code = 370) The system [employer] generated this result transmitted ref erence range: <=5.90. The reference range was not used to int erpret this result as normal/abnormal . RECOMMENDED COUMADIN/WARFARIN INR THERAPY RANGESSTANDARD DOSE: 2.0 - 3.0 Includes: PROPHYLAXIS for venous thrombosis, systemic embolization; TREATMENT for venous thrombosis and/or pulmonary embolus.HIGH RISK: Target INR is 2.5-3.5 for patients with mechanical heart valves.BLOOD GAS, [id number] 03:20:33 Test Item Value Reference Range Interpretation Comments PH ARTERIAL (BEAKER) (test code = 7.39 7.35-7.45 383) PCO2 ARTERIAL (BEAKER) (test code 48 mm Hg 35-45 H = 384) PO2 ARTERIAL (BEAKER) (test code = 130 mm Hg 80-90 H 385) O2 SATURATION ARTERIAL (BEAKER) 98.4 % 96.0-97.0 H (test code = 386) HCO3 ARTERIAL (BEAKER) (test code 28 mmol/L = 388) BASE EXCESS ARTERIAL (BEAKER) 3.2 mmol/L -2.0-3.0 H (test code = 387) PATIENT TEMPERATURE (BEAKER) (test 38.0 code = 1818) FIO2 (BEAKER) (test code = 1819) 80.0 CALCIUM, [id number] 03:18:29 Test Item Value Reference Range Interpretation Comments CALCIUM IONIZED (BEAKER) (test 1.26 mmol/L 1.12-1.27 code = 698) PH, BLOOD (BEAKER) (test code = 7.41 1810) POCT-GLUCOSE [id number] 00:03:56 Test Item Value Reference Range Interpretation Comments POC-GLUCOSE METER 145 mg/dL 70-110 H : TESTED A T [facility] 6720 (BEAKER) (test code = [facility], 1538) [address]: Consumer Product Advisor/Techni bobby ID = [id number] for HAL DON Lactic acid, [id number] 18:26:32 Test Item Value Reference Range Interpretation Comments Lactate, Venous (test code = 1.19 mmol/L 0.50-2.20 2872) RUTHIE (test code = RUTHIE) Consumer Product Advisor ID - BS Lab Interpretation (test Normal code = 03198-7) [facility] CenterLACTIC ACID, [id number] 18:26:32 Test Item Value Reference Range Interpretation Comments LACTATE BLOOD VENOUS (2) (BEAKER) 1.19 mmol/L 0.50-2.20 (test code = 2872) Consumer Product Advisor ID - BSPOCT-GLUCOSE [id number] 18:17:46 Test Item Value Reference Range Interpretation Comments POC-GLUCOSE METER 173 mg/dL 70-110 H : TESTED A T [facility] 6720 (BEAKER) (test code = [facility], 1538) [address]: Consumer Product Advisor/Techni bobby ID = [id number] for FABRICIO SRIVASTAVA BODY FLUID CELL COUNT WITH [id number] 17:41:46 Test Item Value Reference Range Interpretation Comments APPEARANCE FLUID Cloudy Clear A (BEAKER) (test code = 510) COLOR FLUID Yellow Colorless, Straw A (BEAKER) (test code = 511) RBC FLUID (BEAKER) 4000 /cu mm See_Comment H [Automat ed (test code = 513) message] T he system which generated this result transmit tuyet reference range : <=1. The refere nce range was not u sed to interpret th is result as normal/abnormal . ADJUSTED WBC FLUID 83716 /cu mm See_Comment H [Automat ed (BEAKER) (test code message] The = 1691) system which generated this result transmit tuyet reference range : <=5. The refere nce range was not u sed to interpret th is result as normal/abnormal . LINING CELLS 0 /cu mm See_Comment [Automated (BEAKER) (test code message] The = 1590) system which generated this result transmit tuyet reference range : <=1. The refere nce range was not u sed to interpret th is result as normal/abnormal . NEUTROPHILS FLUID 84 % (BEAKER) (test code = 1656) LYMPHS FLUID 2 % (BEAKER) (test code = 488) MONO/MACROPHAGE 14 % FLUID (BEAKER) (test code = 489) EOSINOPHILS FLUID 0 % (BEAKER) (test code = 491) BASO FLUID (BEAKER) 0 % (test code = 492) CONTAINER BODY Sterile Container FLUID (BEAKER) (test code = 2873) LACTATE DEHYDROGENASE (LDH)2021-01-30 15:59:41 Test Item Value Reference Range Interpretation Comments LACTATE DEHYDROGENASE (BEAKER) (test 230 U/L 125-220 H code = 635) Consumer Product Advisor ID Soo [place] [id number] 15:59:40 Test Item Value Reference Range Interpretation Comments Amylase (test code = 122 U/L 25-125 1798-8) RUTHIE (test code = RUTHIE) Consumer Product Advisor ID - CRISTOFER Vázquez Lab Interpretation (test Normal code = 10112-3) [facility] CenterAMYLASE2021-12-21 15:59:40 Test Item Value Reference Range Interpretation Comments AMYLASE (BEAKER) (test code = 349) 122 U/L 25-125 Consumer Product Advisor ID Soo [place] MVancomycin level, [id number] 15:59:39 Test Item Value Reference Range Interpretation Comments Vancomycin Rm (test 12.8 ug/mL code = 44618-2) RUTHIE (test code = Reference Range: No RUTHIE) NormalsOperator ID - CRISTOFER Vázquez [facility] CenterVANCOMYCIN LEVEL, [id number] 15:59:39 Test Item Value Reference Range Interpretation Comments VANCOMYCIN RANDOM (BEAKER) (test 12.8 ug/mL code = 523) Reference Range: No NormalsOperator ID - CRISTOFER MLACTIC ACID, [id number] 15:49:57 Test Item Value Reference Range Interpretation Comments LACTATE BLOOD VENOUS 1.25 mmol/L 0.50-2.20 Specime n slightly (2) (BEAKER) (test hemolyzed code = 2872) Consumer Product Advisor ID - CRISTOFER MRAD, CHEST, 1 VIEW, NON [id number] 15:42:00Reason for exam:->s/p L thoracentesisShould this be performed at the bedside?->Yes [facility] : 1960 Sex: MFINAL REPORT RAD, CHEST, 1 VIEW, NON DEPT INDICATION: s/p L thoracentesis COMPARISON: Prior day's exam FINDINGS: Portable frontal view of the chest. IMPRESSION: Support Lines: Overlying leadsLungs and pleura: Decreased left effusion No significant pneumothorax. Heart and mediastinum: Partially obscured by adjacent airspace and pleural disease Additional findings: None. Signed: Paige Seay Verified Date/Time: 01/30/2021 15:42:27 Reading Location: [facility] Radiology Reading Room BLOOD GAS, [id number] 15:33:41 Test Item Value Reference Range Interpretation Comments PH ARTERIAL (BEAKER) (test code = 7.36 7.35-7.45 383) PCO2 ARTERIAL (BEAKER) (test code 45 mm Hg 35-45 = 384) PO2 ARTERIAL (BEAKER) (test code 72 mm Hg 80-90 L = 385) O2 SATURATION ARTERIAL (BEAKER) 94.1 % 96.0-97.0 L (test code = 386) HCO3 ARTERIAL (BEAKER) (test code 25 mmol/L 21-29 = 388) BASE EXCESS ARTERIAL (BEAKER) -0.8 mmol/L -2.0-3.0 (test code = 387) PATIENT TEMPERATURE (BEAKER) 36.7 (test code = 1818) FIO2 (BEAKER) (test code = 1819) 44.0 Respiratory Panel [id number] 15:19:05 Test Item Value Reference Range Interpretation Comments Human Metapneumovirus Not detected Not detected, (test code = 98629-3) Equivocal Rhinovirus (test code = Not detected Not detected, 60449-7) Equivocal INFLUENZA A (NO Not detected Not detected, SUBTYPE) (test code = Equivocal 28273-3) Influenza A subtype H1 (test code = 13345-6) Influenza A Subtype H3 (test code = 55083-1) Influenza A Subtype H1-2009 (test code = 37328-4) Influenza B (test code Not detected Not detected, = 51649-5) Equivocal Respiratory Syncytial Not detected Not detected, Virus (test code = Equivocal 60526-8) Parainfluenza Virus 1 Not detected Not detected, (test code = 08859-0) Equivocal Parainfluenza Virus 2 Not detected Not detected, (test code = 04138-5) Equivocal Parainfluenza virus 3 Not detected Not detected, (test code = 06260-6) Equivocal Parainfluenza Virus 4 Not detected Not detected, (test code = 32649-4) Equivocal Adenovirus (test code = Not detected Not detected, 44459-0) Equivocal Coronavirus 229E (test Not detected Not detected, code = 92364-6) Equivocal Coronavirus HKU1 (test Not detected Not detected, code = 21612-5) Equivocal Coronavirus NL63 (test Not detected Not detected, code = 15958-0) Equivocal Coronavirus OC43 (test Not detected Not detected, code = 13038-1) Equivocal Bordetella Pertussis Not detected Not detected, (test code = 68892-9) Equivocal Chlamydophila Not detected Not detected, Pneumoniae (test code = Equivocal 88563-3) Mycoplasma Pneumoniae Not detected Not detected, (test code = 50362-9) Equivocal RUTHIE (test code = RUTHIE) Other viruses and bacteria not targeted by this PCR panel cannot be excluded; therefore clinical correlation and follow up of serology, culture results, and other molecular studies is required. The results are not intended to be used as the sole means for clinical diagnosis or patient management decisions. This sample was tested at the [facility] using the Price InteractiveArray Respiratory Panel. It is FDA cleared and has been verified and approved by the [facility] for clinical use on nasopharyngeal swab specimens. The performance of the FilmArray RP has not been established in individuals who received influenza vaccine. Recent administration of a nasal influenza vaccine may cause false positive results for Influenza A and/orInfluenza B. [facility] CenterRESPIRATORY PANEL [id number] 15:19:05 Test Item Value Reference Range Interpretation Comments HUMAN METAPNEUMOVIRUS Not detected Not detected, (BEAKER) (test code = 2683) Equivocal RHINOVIRUS (BEAKER) (test Not detected Not detected, code = 2684) Equivocal INFLUENZA A (BEAKER) (test Not detected Not detected, code = 2685) Equivocal INFLUENZA A (NO SUBTYPE) (test code = 3606) INFLUENZA A SUBTYPE H1 (BEAKER) (test code = 2686) INFLUENZA A SUBTYPE H3 (BEAKER) (test code = 2687) INFLUENZA A SUBTYPE H1-2009 (BEAKER) (test code = 3198) INFLUENZA B (BEAKER) (test Not detected Not detected, code = 2688) Equivocal RESPIRATORY SYNCYTIAL VIRUS Not detected Not detected, (BEAKER) (test code = 3199) Equivocal PARAINFLUENZA VIRUS 1 Not detected Not detected, (BEAKER) (test code = 2691) Equivocal PARAINFLUENZA VIRUS 2 Not detected Not detected, (BEAKER) (test code = 2692) Equivocal PARAINFLUENZA VIRUS 3 Not detected Not detected, (BEAKER) (test code = 2693) Equivocal PARAINFLUENZA VIRUS 4 Not detected Not detected, (BEAKER) (test code = 3200) Equivocal ADENOVIRUS (BEAKER) (test Not detected Not detected, code = 2694) Equivocal CORONAVIRUS 229E (BEAKER) Not detected Not detected, (test code = 3201) Equivocal CORONAVIRUS HKU1 (BEAKER) Not detected Not detected, (test code = 3202) Equivocal CORONAVIRUS NL63 (BEAKER) Not detected Not detected, (test code = 3203) Equivocal CORONAVIRUS OC43 (BEAKER) Not detected Not detected, (test code = 3204) Equivocal BORDETELLA PERTUSSIS Not detected Not detected, (BEAKER) (test code = 3205) Equivocal CHLAMYDOPHILA PNEUMONIAE Not detected Not detected, (BEAKER) (test code = 3206) Equivocal MYCOPLASMA PNEUMONIAE Not detected Not detected, (BEAKER) (test code = 3207) Equivocal Other viruses and bacteria not targeted by this PCR panel cannot be excluded; therefore clinical correlation and follow up of serology, culture results, and other molecular studies is required. The results are not intended to be used as the sole means for clinical diagnosis or patient management decisions. This sample was tested at the [facility] using the Price InteractiveArray Respiratory Panel. It is FDA cleared and has been verified and approved by the [facility] for clinical use on nasopharyngeal swab specimens.The performance of the FilmArrayRP has not been established in individuals who received influenza vaccine. Recent administration of a nasal influenza vaccine may cause false positive results for Influenza A and/orInfluenza B.Strep pneumoniae [id number] 15:07:26 Test Item Value Reference Range Interpretation Comments Strep pneumoniae Presumptive negative Presumptive Antigen (test code = [place] [address]-4) pneumonia - see pneumococcal comment pneumonia - see comment, Presumptive negative for pneumococcal meningitis - see comment RUTHIE (test code = RUTHIE) Presumptive negative for pneumococcal pneumonia, suggesting no current or recent pneumococcal infection. Infection due to S. pneumoniae cannot be ruled out since the antigen present in the sample may be below the detection limit of the test. Lab Interpretation Normal (test code = 16524-3) [facility] [id number] 15:07:26 Test Item Value Reference Range Interpretation Comments STREP PNEUMONIAE Presumptive negative Presumptive negative ANTIGEN (BEAKER) for pneumococcal for pneumococcal (test code = 1615) pneumonia - see pneumonia - see comment commen Presumptive negative for pneumococcal pneumonia, suggesting no current or recent pneumococcal infection. Infection due to S. pneumoniae cannot be ruled out since the antigen present in the sample may be below the detection limit of the test. LEGIONELLA ANTIGEN, [id number] 15:06:54 Test Item Value Reference Range Interpretation Comments L. PNEUMOPHILA Negative - see Negative fo r L. SEROGP 1 UR AG comment pneumophila (BEAKER) (test code serogrou p 1 antigen, = 1156) suggesting no r ecent or current infe ction with this serog roup. Legionellosis c annot be ruled out si nce other serogroup s and species may cau se disease. High Sensitivity Troponin I ([facility]/Sheila Only)2021-01-30 14:23:12 Test Item Value Reference Range Interpretation Comments Troponin I HS (test 16 pg/ml See_Comment [Automa tuyet code = 54537-4) message] The system which generated this result transmitted reference range : <=35. The reference range was not used to interpret this result as normal/abnormal . RUTHIE (test code = Consumer Product Advisor ID - CRISTOFER RUTHIE) [employer] TECH STAT High Sensitivity Troponin-I results should be used in conjunction with other diagnostic information such as ECG, clinical observations and information, and patient symptoms to aid in the diagnosis of NE. Lab Interpretation Normal (test code = 08120-2) [facility] CenterH[facility] SENSITIVITY TROPONIN [id number] 14:23:12 Test Item Value Reference Range Interpretation Comments HIGH SENSITIVITY 16 pg/ml See_Comment [Automated message] TROPONIN I (test code = The system which [id number]) generated this result transmitted ref erence range: <=35. Th e reference range was not used to int erpret this result as normal/abnormal . Consumer Product Advisor ID - CRISTOFER [employer] STAT High Sensitivity Troponin-I results should be used in conjunction with other diagnostic information such as ECG, clinical observations and information, and patient symptoms to aid in the diagnosis of NE.(CELLAVISION MANUAL DIFF)2021-01-30 14:17:23 Test Item Value Reference Range Interpretation Comments NEUTROPHILS - REL 95 % (CELLAVISION)(BEAKER) (test code = 2816) LYMPHOCYTES - REL 2 % (CELLAVISION)(BEAKER) (test code = 2817) MONOCYTES - REL 1 % (CELLAVISION)(BEAKER) (test code = 2818) MYELOCYTES - REL 1 % 0-0 H (CELLAVISION)(BEAKER) (test code = 2822) BANDS - REL (CELLAVISION)(BEAKER) 1 % 0-10 (test code = 2826) NEUTROPHILS - ABS 28.22 K/ul 1.78-5.38 H (CELLAVISION)(BEAKER) (test code = 2830) LYMPHOCYTES - ABS 0.59 K/ul 1.32-3.57 L (CELLAVISION)(BEAKER) (test code = 2831) MONOCYTES - ABS 0.30 K/uL 0.30-0.82 (CELLAVISION)(BEAKER) (test code = 2832) MYELOCYTES-ABS 0.30 K/uL 0.00-0.00 H (CELLAVISION)(BEAKER) (test code = 2837) BANDS - ABS (CELLAVISION)(BEAKER) 0.30 K/uL 0.00-0.80 (test code = 2840) TOTAL COUNTED (BEAKER) (test code 100 = 1351) SMUDGE CELLS (BEAKER) (test code Present = 1371) GIANT PLATELETS (BEAKER) (test Present code = 313) POLYCHROMATOPHILLIC RBCS(BEAKER) 1+ few (test code = 478) ANISOCYTOSIS (BEAKER) (test code 1+ few = 961) POIKILOCYTES (BEAKER) (test code 2+ moderate = 966) SCHISTOCYTES (BEAKER) (test code 1+ few = 765) LUIS CELLS (BEAKER) (test code = 1+ few 474) PLATELET CONCENTRATION Adequate (CELLAVISION)(BEAKER) (test code = 3438) Consumer Product Advisor ID - Esvin Quiroz comments: Slide comments:CBC W/PLT COUNT & AUTO [id number] 14:17:22 Test Item Value Reference Range Interpretation Comments WHITE BLOOD CELL COUNT (BEAKER) 29.7 K/ L 3.5-10.5 H (test code = 775) RED BLOOD CELL COUNT (BEAKER) 3.45 M/ L 4.63-6.08 L (test code = 761) HEMOGLOBIN (BEAKER) (test code = 10.7 GM/DL 13.7-17.5 L 410) HEMATOCRIT (BEAKER) (test code = 33.6 % 40.1-51.0 L 411) MEAN CORPUSCULAR VOLUME (BEAKER) 97.4 fL 79.0-92.2 H (test code = 753) MEAN CORPUSCULAR HEMOGLOBIN 31.0 pg 25.7-32.2 (BEAKER) (test code = 751) MEAN CORPUSCULAR HEMOGLOBIN CONC 31.8 GM/DL 32.3-36.5 L (BEAKER) (test code = 752) RED CELL DISTRIBUTION WIDTH 14.7 % 11.6-14.4 H (BEAKER) (test code = 412) PLATELET COUNT (BEAKER) (test 468 K/CU MM 150-450 H code = 756) MEAN PLATELET VOLUME (BEAKER) 10.8 fL 9.4-12.4 (test code = 754) NUCLEATED RED BLOOD CELLS 0 /100 WBC 0-0 (BEAKER) (test code = 413) PROTHROMBIN [id number] 14:16:32 Test Item Value Reference Range Interpretation Comments PROTIME (BEAKER) 14.4 seconds 11.9-14.2 H (test code = 759) INR (BEAKER) (test 1.14 See_Comment [Automat ed message] code = 370) The system [employer] generated this result transmitted ref erence range: <=5.90. The reference range was not used to int erpret this result as normal/abnormal . RECOMMENDED COUMADIN/WARFARIN INR THERAPY RANGESSTANDARD DOSE: 2.0 - 3.0 Includes: PROPHYLAXIS for venous thrombosis, systemic embolization; TREATMENT for venous thrombosis and/or pulmonary embolus.HIGH RISK: Target INR is 2.5-3.5 for patients with mechanical heart valves.VITAMIN B12 AND [id number] 14:13:30 Test Item Value Reference Range Interpretation Comments VITAMIN B12 (BEAKER) 554 pg/mL 213-816 (test code = 774) FOLATE (BEAKER) 5.40 ng/mL See_Comment L [Automated message] (test code = 362) The system which generated this result transmitted ref erence range: >=7.00. The reference range was not used to interpr et this result as normal/abnormal . Consumer Product Advisor ID - CRISTOFER MTSH/FREE T4 IF [id number] 14:13:29 Test Item Value Reference Range Interpretation Comments THYROID STIMULATING HORMONE 0.751 uIU/mL 0.350-4.940 (BEAKER) (test code = 772) Consumer Product Advisor ID - CRISTOFER MRAD, CHEST, 1 VIEW, NON [id number] 13:43:00Reason for exam:->evaluate [facility] : 1960 Sex: MFINAL REPORT INDICATION: evaluate PNA COMPARISON: None TECHNIQUE: Single frontal view of the chest. FINDINGS: Lungs and pleura: Opacification of the left hemithorax.Heart and mediastinum: Normal heart size. Unremarkable mediastinal contours.Osseous structures: No acute abnormality.Other: None. IMPRESSION: Opacification of the left hemithorax Signed: Paige Seay Verified Date/Time: 01/30/2021 13:43:36 Reading Location: [facility] Radiology Reading Room [id number] 13:40:45 Test Item Value Reference Range Interpretation Comments MAGNESIUM (BEAKER) (test code = 1.7 mg/dL 1.6-2.6 627) Consumer Product Advisor ID - CRISTOFER [id number] 13:40:45 Test Item Value Reference Range Interpretation Comments PHOSPHORUS (BEAKER) (test code = 3.4 mg/dL 2.3-4.7 604) Consumer Product Advisor ID - CRISTOFER MCOMPREHENSIVE METABOLIC [id number] 13:40:44 Test Item Value Reference Range Interpretation Comments TOTAL PROTEIN 6.3 gm/dL 6.0-8.3 (BEAKER) (test code = 770) ALBUMIN (BEAKER) 2.8 g/dL 3.5-5.0 L (test code = 1145) ALKALINE PHOSPHATASE 64 U/L 40-150 (BEAKER) (test code = 346) BILIRUBIN TOTAL 0.4 mg/dL 0.2-1.2 (BEAKER) (test code = 377) SODIUM (BEAKER) (test 137 meq/L 136-145 code = 381) POTASSIUM (BEAKER) 3.8 meq/L 3.5-5.1 (test code = 379) CHLORIDE (BEAKER) 103 meq/L 98-107 (test code = 382) CO2 (BEAKER) (test 24 meq/L 22-29 code = 355) BLOOD UREA NITROGEN 79 mg/dL 7-21 H (BEAKER) (test code = 354) CREATININE (BEAKER) 1.59 mg/dL 0.57-1.25 H (test code = 358) GLUCOSE RANDOM 208 mg/dL 70-105 H (BEAKER) (test code = 652) CALCIUM (BEAKER) 9.2 mg/dL 8.4-10.2 (test code = 697) AST (SGOT) (BEAKER) 38 U/L 5-34 H (test code = 353) ALT (SGPT) (BEAKER) 38 U/L 6-55 (test code = 347) EGFR (BEAKER) (test 44 mL/min/1.73 ESTIMA TUYET GFR IS code = 1092) sq m NOT ACCURATE CREATININE CLEARANCE IN PREDICTING GLOMERULAR FILTRATION RATE . ESTIMATED GFR I S NOT APPLICABLE FOR DIALYSIS PATIEN TS. Consumer Product Advisor ID - CRISTOFER MPOCT-GLUCOSE [id number] 13:33:47 Test Item Value Reference Range Interpretation Comments POC-GLUCOSE METER 205 mg/dL 70-110 H : TESTED A T [facility] 6720 (BEAKER) (test code = [facility], 1538) [address]: Consumer Product Advisor/Techni bobby ID = [id number] for Filomena davila (contract), Sarah fischer [id number] 13:28:40 Test Item Value Reference Range Interpretation Comments PARTIAL THROMBOPLASTIN TIME 29.8 seconds 22.5-36.0 (BEAKER) (test code = 760) PROTHROMBIN [id number] 13:28:00 Test Item Value Reference Range Interpretation Comments PROTIME (BEAKER) 14.7 seconds 11.9-14.2 H (test code = 759) INR (BEAKER) (test 1.17 See_Comment [Automat ed message] code = 370) The system [employer] generated this result transmitted ref erence range: <=5.90. The reference range was not used to int erpret this result as normal/abnormal . RECOMMENDED COUMADIN/WARFARIN INR THERAPY RANGESSTANDARD DOSE: 2.0 - 3.0 Includes: PROPHYLAXIS for venous thrombosis, systemic embolization; TREATMENT for venous thrombosis and/or pulmonary embolus.HIGH RISK: Target INR is 2.5-3.5 for patients with mechanical heart valves.LACTIC ACID, [id number] 13:17:37 Test Item Value Reference Range Interpretation Comments LACTATE BLOOD VENOUS (2) (BEAKER) 1.51 mmol/L 0.50-2.20 (test code = 2872) Consumer Product Advisor ID - CRISTOFER MBLOOD GAS, [id number] 12:52:12 Test Item Value Reference Range Interpretation Comments PH VENOUS (BEAKER) (test code = 7.29 7.32-7.42 L 701) PCO2 VENOUS (BEAKER) (test code = 57 mm Hg 41-51 H 755) PO2 VENOUS (BEAKER) (test code = 31 mm Hg 25-40 702) O2 SATURATION VENOUS (BEAKER) 51.7 % 40.0-70.0 (test code = 703) HCO3 VENOUS (BEAKER) (test code = 27 mmol/L 21-29 705) BASE EXCESS VENOUS (BEAKER) (test -0.9 mmol/L -2.0-3.0 code = 704) PATIENT TEMPERATURE (BEAKER) 36.7 (test code = 1818) FIO2 (BEAKER) (test code = 1819) 95.0 BLOOD GAS, [id number] 12:52:11 Test Item Value Reference Range Interpretation Comments PH ARTERIAL (BEAKER) (test code = 7.36 7.35-7.45 383) PCO2 ARTERIAL (BEAKER) (test code 49 mm Hg 35-45 H = 384) PO2 ARTERIAL (BEAKER) (test code = 95 mm Hg 80-90 H 385) O2 SATURATION ARTERIAL (BEAKER) 97.1 % 96.0-97.0 H (test code = 386) HCO3 ARTERIAL (BEAKER) (test code 27 mmol/L 21-29 = 388) BASE EXCESS ARTERIAL (BEAKER) 0.8 mmol/L -2.0-3.0 (test code = 387) PATIENT TEMPERATURE (BEAKER) (test 36.7 code = 1818) FIO2 (BEAKER) (test code = 1819) 95.0
[2022-01-15 07:28] LABS: Absolute Lymphocytes (CBC) 1.7 K/uL (0.7-4.9); Hematocrit 41.1 % (39.6-49.0); Lymphocytes % 31.6 % (15.3-44.8); MCV 91.1 fL (80-100); MPV 7.8 fL (7.6-11.3); RBC Red Blood Cell Count 4.51 M/uL (4.33-5.43)
[2022-01-15] MEDS ORDERED: ALPRAZOLAM 1 MG TABLET ONE (07:40)
[2022-01-15 07:45] LABS: Bilirubin Total 0.8 mg/dL (0.2-1.0); Potassium 4.1 mmol/L (3.5-5.1); Protein, Total 8.5 g/dL (6.4-8.2); Troponin High Sensitivity 10.9 pg/mL (<58.9)
--- NOTE | 2022-01-15 08:31 | RAD REPORT ---
EXAM DESCRIPTION: RAD - Chest Single View - 01/15/2022 7:49 am CLINICAL HISTORY: DYSPNEA Chest pain. COMPARISON: Chest Single View dated 01/30/2021; Abdomen 1 View (KUB) dated 01/29/2021; Chest Single View dated 01/29/2021; Chest Single View dated 01/28/2021; Chest Abdomen Pelvis W Cont dated 2 FINDINGS: Portable technique limits examination quality. The lungs are grossly clear. The heart is normal in size. No displaced fractures. IMPRESSION: No acute intrathoracic process suspected.
--- NOTE | 2022-01-15 08:50 | RAD REPORT ---
EXAM DESCRIPTION: CT - Chest Abdomen Pelvis W Cont - 01/15/2022 8:20 am CLINICAL HISTORY: Chest and abdomen pain. Abdominal pain COMPARISON: No comparisons TECHNIQUE: Approximately 100 mL nonionic IV contrast was administered to the patient. All CT scans are performed using dose optimization technique as appropriate and may include automated exposure control or mA/KV adjustment according to patient size. FINDINGS: The lungs are clear.No pleural or pericardial effusion.No intrathoracic adenopathy. The liver, spleen, pancreas, adrenal glands and left kidney are within normal limits. 16 mm cystic le becky posterosuperior aspect of the right kidney is noted with mild wall enhancement likely present. No bowel obstruction, free air, free fluid or abscess. Normal appendix. No pathologic lymphadenopath y in the abdomen or pelvis. Prostate gland is mildly enlarged and projects into the bladder base. Mild lumbar degenerative changes. IMPRESSION: No acute process is identified. Small enhancing 16 mm exophytic cystic lesion posterosuperior right kidney. Recommend follow-up MRI o f the kidneys with contrast on a nonemergent basis for further evaluation.
[2022-01-15] MEDS ORDERED: NA CHLORIDE 0.9% 500 ML ONE (08:56)
--- NOTE | 2022-01-15 10:28 | ER ---
Nurse's Notes [facility] Name: Lincoln Espinal Age: 62 yrs Sex: Male : 1960 Arrival Date: 01/15/2022 Time: 06:47 Bed 16 Private MD: Diagnosis: Abdominal pain, Generalized;Upper abdominal pain, unspecified Presentation: 01/15 06:47 Chief complaint: Patient states: Since last I feel really bloated when I eat i aa9 have abd pain its like a /10, I am worried because Last year I was hospitalized for a collapsed lung and It feels gabriela similar its on the same side too. Coronavirus screen: Vaccine status: Patient reports receiving the 2nd dose of the covid vaccine. Ebola Screen: No symptoms or risks identified at this time. Initial Sepsis Screen: Does the patient meet any 2 criteria? No. Patient's initial sepsis screen is negative. Does the patient have a suspected source of infection? No. Patient's initial sepsis screen is negative. Risk Assessment: Do you want to hurt yourself or someone else? Patient reports no desire to harm self or others. Onset of symptoms was January 15, 2022. 06:47 Method Of Arrival: EMS: [facility] aa9 06:47 Acuity: KULDIP 3 aa9 Triage Assessment: 06:50 General: Appears uncomfortable, Behavior is calm, cooperative, appropriate for age. aa9 Pain: Complains of pain in left upper quadrant Pain currently is 4 out of 10 on a pain scale. Quality of pain is described as dull, Is continuous, Noted to be resistant to movement. Neuro: Level of Consciousness is awake, alert, obeys commands, Oriented to person, place, time, situation. Cardiovascular: Patient's skin is warm and dry. Respiratory: Airway is patent Respiratory effort is even, unlabored. GI: Reports bloating, Patient currently denies diarrhea, nausea, vomiting. : No signs and/or symptoms were reported regarding the genitourinary system. Derm: Skin is intact, is healthy with good turgor. Historical: - Allergies: 06:49 No Known Allergies; aa9 - Home Meds: 06:49 hydrochlorothiazide 25 mg Oral tab [Active]; lisinopril 10 mg Oral tab [Active]; aa9 metoprolol tartrate 100 mg Oral tab [Active]; Novolin 70/30 [place] 20 units at 0400 and 10 units 1600 daily Sub-Q [Active]; Metformin Oral [Active]; - PMHx: 06:49 Diabetes - IDDM; Hepatitis; Hypertension; aa9 - PSHx: 06:49 Tonsillectomy; aa9 - Immunization history:: Client reports receiving the 2nd dose of the Covid vaccine. - Social history:: Smoking status: Patient denies any tobacco usage or history of. Screenin:51 Abuse screen: Denies threats or abuse. Denies injuries from another. Nutritional aa9 screening: No deficits noted. Tuberculosis screening: No symptoms or risk factors identified. Fall Risk None identified. Assessment: 07:31 General: Appears in no apparent distress. comfortable, Behavior is cooperative, kc6 appropriate for age, anxious. Pain: Complains of pain in left upper quadrant Pain does not radiate. Pain currently is 4 out of 10 on a pain scale. Quality of pain is described as sharp, Pain began 2-3 days ago. Is continuous, Alleviated by nothing. Aggravated by increased activity, Also complains of no other associated symptoms. Neuro: Salcedo Agitation-Sedation Scale (RASS): 0 - Alert and Calm Level of Consciousness is awake, alert, obeys commands, Oriented to person, place, time, situation, Appropriate for age. Cardiovascular: Heart tones S1 S2 present Capillary refill < 3 seconds. Respiratory: Airway is patent Trachea midline Respiratory effort is even, unlabored, Respiratory pattern is regular, symmetrical, Breath sounds are clear bilaterally. GI: No signs and/or symptoms were reported involving the gastrointestinal system. : No signs and/or symptoms were reported regarding the genitourinary system. EENT: No signs and/or symptoms were reported regarding the EENT system. Derm: No signs and/or symptoms reported regarding the dermatologic system. Skin is intact, Skin is pink, warm \T\ dry. Musculoskeletal: No signs and/or symptoms reported regarding the musculoskeletal system. Circulation, motion, and sensation intact. Capillary refill < 3 seconds, Range of motion: intact in all extremities. 08:31 Reassessment: Patient appears in no apparent distress at this time. No changes from kc6 previously documented assessment. Patient and/or family updated on plan of care and expected duration. Pain level reassessed. Patient is alert, oriented x 3, equal unlabored respirations, skin warm/dry/pink. 09:26 Reassessment: Patient appears in no apparent distress at this time. No changes from kc6 previously documented assessment. Patient and/or family updated on plan of care and expected duration. Pain level reassessed. Patient is alert, oriented x 3, equal unlabored respirations, skin warm/dry/pink. client ambulated the unit without difficulty, gait steady. Patient denies pain at this time. Patient states feeling better. Patient states symptoms have improved. 10:26 Reassessment: Patient appears in no apparent distress at this time. No changes from kc6 previously documented assessment. Patient and/or family updated on plan of care and expected duration. Pain level reassessed. Patient is alert, oriented x 3, equal unlabored respirations, skin warm/dry/pink. Patient denies pain at this time. Patient states feeling better. Patient states symptoms have improved. Vital Signs: 06:47 BP 125 / 80; Pulse 70; Resp 12 S; Temp 98.8; Pulse Ox 98% on R/A; Weight 95.25 kg (R); aa9 Height 5 ft. 10 in. (177.80 cm) (R); Pain 4/10; 07:33 BP 114 / 75; Pulse 74; Resp 14 S; Pulse Ox 100% on R/A; Pain 4/10; kc6 08:33 BP 114 / 81; Pulse 72; Resp 18 S; Pulse Ox 97% on R/A; kc6 09:28 BP 127 / 63; Pulse 69; Resp 17 S; Pulse Ox 99% on R/A; Pain 0/10; kc6 10:28 BP 108 / 79; Pulse 73; Resp 15 S; Pulse Ox 99% on R/A; kc6 06:47 Body Mass Index 30.13 (95.25 kg, 177.80 cm) aa9 ED Course: 06:47 Patient arrived in ED. aa9 06:49 Triage completed. aa9 06:50 Arm band placed on. aa9 06:51 Patient has correct armband on for positive identification. Bed in low position. Call aa9 light in reach. Side rails up X2. Client placed on continuous cardiac and pulse oximetry monitoring. NIBP monitoring applied. 07:03 Raul Patel MD is Attending Physician. kdr 07:03 Mabry, Any, RN is Primary Nurse. kc6 07:26 Inserted saline lock: 20 gauge in right antecubital area, using aseptic technique. jd3 07:31 BNP Sent. kc6 07:31 CMP Sent. kc6 07:31 Troponin High Sensitivity Sent. kc6 07:51 Chest Single View XRAY In Process Unspecified. EDMS 08:22 CT Chest, Abdomen, Pelvis - W/Contrast In Process Unspecified. EDMS 10:53 No provider procedures requiring assistance completed. IV discontinued, intact, kc6 bleeding controlled, No redness/swelling at site. Pressure dressing applied. Administered Medications: 07:40 Drug: XANax (alprazolam) Tablet 1 mg Route: PO; kc6 09:11 Follow up: Response: No adverse reaction; Anxiety decreased; RASS: Alert and Calm (0) kc6 08:57 Drug: NS 0.9% 500 ml Route: IV; Rate: bolus; Site: right antecubital; kc6 09:20 Follow up: Response: No adverse reaction; IV Status: Completed infusion; IV Intake: kc6 500ml Medication: 10:54 VIS not applicable for this client. kc6 Intake: 09:20 IV: 500ml; Total: 500ml. kc6 Outcome: 10:27 Discharge ordered by . kdr 10:53 Discharged to home ambulatory. kc6 10:53 Condition: improved 10:53 Discharge instructions given to patient, Instructed on discharge instructions, medication usage, Demonstrated understanding of instructions, medications, Prescriptions given X 1. 10:54 Patient left the ED. kc6 Signatures: Dispatcher [employer] EDTN Raul Patel MD MD kdr Davies, Jonathon RN RN Karie Mcgrath RN RN aa9 Campbell, Kaitlyn, RN RN kc6
--- NOTE | 2022-01-15 10:28 | EDPHYS ---
Physician Documentation [facility] Name: Lincoln Espinal Age: 62 yrs Sex: Male : 1960 Arrival Date: 01/15/2022 Time: 06:47 Bed 16 Private MD: ED Physician Raul Patel HPI: 01/15 09:46 This 62 yrs old Male presents to ER via EMS with complaints of abdominal bloating. kdr 09:46 Patient states that since last 's been very bloated or at least subjectively kdr felt bloated whenever he eats. He is also had some reflux. His pain he states has been 4 out of 10. The patient is particularly concerned since last year he had a pneumothorax which presented in a similar fashion.. Onset: The symptoms/episode began/occurred Last . Severity of symptoms: At their worst the symptoms were mild moderate just prior to arrival. The patient has experienced similar episodes in the past, a few times, but today's symptoms are worse, more frequent. The patient has not recently seen a physician. Historical: - Allergies: 06:49 No Known Allergies; aa9 - Home Meds: 06:49 hydrochlorothiazide 25 mg Oral tab [Active]; lisinopril 10 mg Oral tab [Active]; aa9 metoprolol tartrate 100 mg Oral tab [Active]; Novolin 70/30 [place] 20 units at 0400 and 10 units 1600 daily Sub-Q [Active]; Metformin Oral [Active]; - PMHx: 06:49 Diabetes - IDDM; Hepatitis; Hypertension; aa9 - PSHx: 06:49 Tonsillectomy; aa9 - Immunization history:: Client reports receiving the 2nd dose of the Covid vaccine. - Social history:: Smoking status: Patient denies any tobacco usage or history of. ROS: 09:46 Constitutional: Negative for fever, chills, and weight loss, Eyes: Negative for injury, kdr pain, redness, and discharge, Neck: Negative for injury, pain, and swelling, Cardiovascular: Negative for chest pain, palpitations, and edema, Respiratory: Negative for shortness of breath, cough, wheezing, and pleuritic chest pain, Abdomen/GI: Negative for abdominal pain, nausea, vomiting, diarrhea, and constipation, Back: Negative for injury and pain, : Negative for injury, bleeding, discharge, and swelling, MS/Extremity: Negative for injury and deformity, Skin: Negative for injury, rash, and discoloration, Neuro: Negative for headache, weakness, numbness, tingling, and seizure activity. Psych: Negative for depression, anxiety, suicide ideation, homicidal ideation, and hallucinations, Allergy/Immunology: Negative for hives, rash, and allergies, Endocrine: Negative for neck swelling, polydipsia, polyuria, polyphagia, and marked weight changes, Hematologic/Lymphatic: Negative for swollen nodes, abnormal bleeding, and unusual bruising. 09:46 Abdomen/GI: Positive for abdominal pain, nausea, vomiting, diarrhea, abdominal cramps, Negative for black/tarry stool, rectal pain, rectal bleeding. Exam: 07:40 ECG was reviewed by the Attending Physician. kdr 09:46 Constitutional: This is a well developed, well nourished patient who is awake, alert, kdr and in no acute distress. Head/Face: Normocephalic, atraumatic. Eyes: Pupils equal round and reactive to light, extra-ocular motions intact. Lids and lashes normal. Conjunctiva and sclera are non-icteric and not injected. Cornea within normal limits. Periorbital areas with no swelling, redness, or edema. ENT: Nares patent. No nasal discharge, no septal abnormalities noted. Tympanic membranes are normal and external auditory canals are clear. Oropharynx with no redness, swelling, or masses, exudates, or evidence of obstruction, uvula midline. Mucous membranes moist. Neck: Trachea midline, no thyromegaly or masses palpated, and no cervical lymphadenopathy. Supple, full range of motion without nuchal rigidity, or vertebral point tenderness. No Meningismus. Chest/axilla: Normal chest wall appearance and motion. Nontender with no deformity. No lesions are appreciated. Cardiovascular: Regular rate and rhythm with a normal S1 and S2. No gallops, murmurs, or rubs. Normal PMI, no JVD. No pulse deficits. Respiratory: Lungs have equal breath sounds bilaterally, clear to auscultation and percussion. No rales, rhonchi or wheezes noted. No increased work of breathing, no retractions or nasal flaring. Abdomen/GI: Soft, non-tender, with normal bowel sounds. No distension or tympany. No guarding or rebound. No evidence of tenderness throughout. Back: No spinal tenderness. No costovertebral tenderness. Full range of motion. Skin: Warm, dry with normal turgor. Normal color with no rashes, no lesions, and no evidence of cellulitis. MS/ Extremity: Pulses equal, no cyanosis. Neurovascular intact. Full, normal range of motion. Neuro: Awake and alert, GCS 15, oriented to person, place, time, and situation. Cranial nerves II-XII grossly intact. Motor strength 5/5 in all extremities. Sensory grossly intact. Cerebellar exam normal. Normal gait. Psych: Awake, alert, with orientation to person, place and time. Behavior, mood, and affect are within normal limits. 09:46 Abdomen/GI: Inspection: obese Bowel sounds: Vital Signs: 06:47 BP 125 / 80; Pulse 70; Resp 12 S; Temp 98.8; Pulse Ox 98% on R/A; Weight 95.25 kg (R); aa9 Height 5 ft. 10 in. (177.80 cm) (R); Pain 4/10; 07:33 BP 114 / 75; Pulse 74; Resp 14 S; Pulse Ox 100% on R/A; Pain 4/10; kc6 08:33 BP 114 / 81; Pulse 72; Resp 18 S; Pulse Ox 97% on R/A; kc6 09:28 BP 127 / 63; Pulse 69; Resp 17 S; Pulse Ox 99% on R/A; Pain 0/10; kc6 10:28 BP 108 / 79; Pulse 73; Resp 15 S; Pulse Ox 99% on R/A; kc6 06:47 Body Mass Index 30.13 (95.25 kg, 177.80 cm) aa9 MDM: 09:45 Data reviewed: vital signs, nurses notes, lab test result(s). Counseling: I had a kdr detailed discussion with the patient and/or guardian regarding: the historical points, exam findings, and any diagnostic results supporting the discharge/admit diagnosis, lab results, radiology results, the need for outpatient follow up. 10:27 Patient medically screened. kdr 01/15 06:59 Order name: CBC with Diff; Complete Time: 07:37 rt 01/15 06:59 Order name: CMP; Complete Time: 08:03 rt 01/15 06:59 Order name: Chest Single View XRAY; Complete Time: 08:52 rt 01/15 06:59 Order name: Troponin High Sensitivity; Complete Time: 08:03 rt 01/15 06:59 Order name: BNP; Complete Time: 08:03 rt 01/15 07:37 Order name: CT Chest, Abdomen, Pelvis - W/Contrast; Complete Time: 08:52 kdr 01/15 06:59 Order name: EKG; Complete Time: 07:00 rt 01/15 06:59 Order name: EKG - Nurse/Tech; Complete Time: 07:31 rt 01/15 07:26 Order name: IV; Complete Time: 07:26 jd3 EC:40 Rate is 69 beats/min. Rhythm is regular, Sinus Rhythm with No ectopy. QRS [place] is kdr Normal. DE interval is normal. QRS interval is normal. Clinical impression: NSR w/ Non-specific ST/T Changes. Administered Medications: 07:40 Drug: XANax (alprazolam) Tablet 1 mg Route: PO; kc6 09:11 Follow up: Response: No adverse reaction; Anxiety decreased; RASS: Alert and Calm (0) kc6 08:57 Drug: NS 0.9% 500 ml Route: IV; Rate: bolus; Site: right antecubital; kc6 09:20 Follow up: Response: No adverse reaction; IV Status: Completed infusion; IV Intake: kc6 500ml Disposition Summary: 01/15/22 10:27 Discharge Ordered Location: Home kdr Problem: new kdr Symptoms: have improved kdr Condition: Stable kdr Diagnosis - Abdominal pain, Generalized kdr - Upper abdominal pain, unspecified kdr Followup: kdr - With: Private Physician - When: 2 - 3 days - Reason: If symptoms return, Further diagnostic work-up, Recheck today's complaints, Continuance of care, Re-evaluation by your physician Discharge Instructions: - Discharge Summary Sheet kdr - Abdominal Pain, Adult, [id number] kdr Forms: - Medication Reconciliation Form kdr - Thank You Letter kdr Prescriptions: - Pepcid 20 mg Oral Tablet - take 1 tablet by ORAL route once daily; 20 tablet; Refills: 0, Product kdr Selection Permitted Signatures: Dispatcher [employer] Raul Moore MD MD kdr Beto Ornelas RN RN jd3 Karie Posada RN RN aa9 Any Mabry RN RN kc6 Ronaldo Chen, MD rt
[2022-01-15 12:49] VITALS: TEMP 98.8
[2022-01-15 12:53] VITALS: O2SAT 99
[2022-01-15 12:54] VITALS: BP 108/79
--- NOTE | 2022-01-17 05:48 | EKG ---
Test Date: 2022-01-15 Test Time: 07:25:41 Corporate Administrative Assistant: JEFF MEASUREMENT RESULTS: Intervals: Rate: 69 GA: 226 QRSD: 90 QT: 388 QTc: 415 [place]: P: 41 GA: 226 QRS: -50 T: 35 INTERPRETIVE STATEMENTS: Sinus rhythm with 1st degree AV block Low voltage QRS Left anterior fascicular block Cannot rule out Anterior infarct, age undetermined Abnormal ECG Compared to ECG 01/26/2021 10:06:33 First degree AV block now present Low QRS voltage now present Left anterior fascicular block now present Atrial fibrillation no longer present Myocardial infarct finding still present Electronically Signed On 01-17-22 05:45:01 ROLL CAPPER by Arnaud Espinoza
== END 2022-01-15 10:54 | disposition home or self-care (01) ==
LOC: ER 06:40
DX: R10.84 Generalized abdominal pain (principal); R10.10 Upper abdominal pain, unspecified; I10 Essential (primary) hypertension; E11.9 Type 2 diabetes mellitus without complications; Z79.4 Long term (current) use of insulin
CPT/HCPCS: 36415; 71045; 71260; 74177; 80053; 83880; 84484; 85025; 93005; 99284; J7040; Q9967

== ENCOUNTER 2022-07-31 23:41 | Emergency (ER) | payer SELFPAY ==
--- OUTSIDE RECORDS SUMMARY | 2022-07-31 23:53 | XMS REPORT | Continuity of Care Document ---
:1960 Author Organization [facility] t Address [address] [place] [address] [address] [place] [address] Care Team Providers Name Role Phone Nila Monroe MDrees Attending Clinician Sander Nolan MD Attending Clinician Mary JAMA, Brandon Dueñas Attending Clinician Dale JAMA, Stephane Krishna Attending Clinician Jamar JAMA, Salina Attending Clinician Gita JAMA, Ana Parra Attending Clinician [phone] Michelle Chen MD Attending Clinician [phone] MICHELLE CHEN Attending Clinician Unavailable Virtual, Surgeon Attending Clinician Unavailable Shiraz JAMA, Johnna Rawls Attending Clinician [phone] Paolo JAMA, Juancarlos Stone Attending Clinician [phone] Jorge Hinton MD Attending Clinician Oneil Zamorano MD Attending Clinician Ignacio Muhammad Attending Clinician Carlton Chanel Attending Clinician Unavailable NILA MONROE DENNYS Admitting Clinician Unavailable Problems Condition Condition Condition Status Onset Resolution Last Treating Co mments Source Name Details Category Date Date Treatment Clinician Date Candidemia Candidemia Disease Recurre 2020-02 [facility] Hypoxemia Hypoxemia Disease Active 2020-[address] [facility] requiring requiring 2- [facility] supplement supplement 00:00: Me dical [...] Date Date Clinician NO KNOWN [facility] Social History Social Habit Start Date Stop Date Quantity Comments Source History SDOH [facility] History SDOH [facility] Alcohol Std Drinks [facility] History [facility] Alcohol Binge Medical Fan [facility] Alcohol intake 2021-02-07 2021-02-07 Ex-drinker [facility]00 (finding[facility] Tobacco use and 2021-01-30 2021-01-[address] [facility] kes exposure 00:00:00 00:00:00 [facility] Alcohol Comment 2021-01-30 2021-01-[address] [facility] 00:00:00 00:00:00 since last year Medical C enter Sex Ass[birth year] At [birth year] [facility] kes 00:00:00 00:00:00 [facility] Smoking Status Start Date Stop Date Source Never smoker [facility] Medications Ordered Filled Start Stop Current Ordering [...] Units (70-30) daily with injection dinner. insulin 2022- No Inject [address] [facility] 70/30, 1-15 01-15 [facility] insulin 00:00: 23:59 subcutaneo Med ical NPH-insulin 00 :00 usly daily Ce nter regular, with (HumuLIN breakfast 70/30) 100 AND 10 unit/mL Units (70-30) daily with injection dinner. QUEtiapine No 25mg Take [address] [facility] (SEROquel) 02-2414 tablet (25 Terrie kes 25 MG 00:00: 23:59 mg total) Medica l tablet 00 :00 by mouth Center every night as needed for up to 30 days. amoxicillin No 1{tbl} Q.5D Take [address] -clavulanat 02-2407 tablet by Terrie kes e 00:00: 23:59 mouth 2 Medical (AUGMENTIN) 00 :00 (two) Center 875-125 mg times per tablet daily for 23 days. insulin No Inject [address] [facility] 70/30, 1-15 -15 Units [facility] insulin 00:00: 00:00 subcutaneo Med ical NPH-insulin 00 :00 usly daily Ce nter regular, with (HumuLIN breakfast 70/30) 100 AND 10 unit/mL Units (70-30) daily with injection dinner. insulin 2021- No Inject [address] [facility] 70/30, 1-15 01-15 [facility] insulin 00:00: 00:00 subcutaneo Med ical NPH-insulin 00 :00 usly daily Ce nter regular, with (HumuLIN breakfast 70/30) 100 AND 10 unit/mL Units (70-30) daily with injection dinner. potassium 20meq QD Take [address] chloride SA 02-14-05 tablet (20 L ukes (K-DUR,KLOR 00:00: 23:59 mEq total) Medical -CON-M) 20 00 :00 by mouth Cente r MEQ tablet daily. potassium 20meq QD Take [address] chloride SA 02-14-05 tablet (20 L ukes (K-DUR,KLOR 00:00: 23:59 mEq total) Medical -CON-M) 20 00 :00 by mouth Cente r MEQ tablet daily. polyethylen 2021- No 17g QD Take [address] [address] e glycol 02-14 by mouth [facility] (GLYCOLAX) 00:00: 23:59 daily for M kimberlyical 17 gram 00 :00 3 days. Center packet folic acid No 1mg QD Inject 0.[address] 5 mg/mL 02-14 mLs (1 mg [facility] injection 00:00: 00:00 total) Medic al 00 :00 intravenou Center sly daily. furosemide 2022- No 20mg QD Take [address] [facility] (LASIX) 20 02-13 tablet (20 Terrie kes MG tablet 00:00: 23:59 mg total) Me dical 00 :00 by mouth Center daily. folic acid 2022- No 1mg QD Take [address] [facility] (FOLVITE) 1 02-13 tablet (1 Terrie kes MG tablet 00:00: 23:59 mg total) Me dical 00 :00 by mouth Center daily. furosemide No 20mg QD Take [address] [facility] (LASIX) 20 02-13 tablet (20 Terrie kes MG tablet 00:00: 23:59 mg total) Me dical 00 :00 by mouth Center daily. folic acid 2022- No 1mg QD Take [address] [facility] (FOLVITE) 1 02-13 tablet (1 Terrie kes MG tablet 00:00: 23:59 mg total) Me dical 00 :00 by mouth Center daily. amoxicillin 2021- No 1{tbl} Q.5D Take [address] -clavulanat 02-13 tablet by Terrie kes e 00:00: 00:00 mouth 2 Medical (AUGMENTIN) 00 :00 (two) Center 875-125 mg times per tablet daily for 13 days. metFORMIN 2021- No 500mg Take [address] [facility] (GLUCOPHAGE 02-13 tablet [facility] ) 500 MG 00:00: 00:00 (500 mg Medic al tablet 00 :00 total) by Center mouth 2 (two) times daily with breakfast and dinner. benzonatate 2021- No 100mg Take [address] [...] kg Systolic blood 2021-02-24 07:00:00 123 mm[Hg] [facility] Diastolic blood 2021-02-24 07:00:00 80 mm[Hg] [facility] Heart rate 2021-02-24 07:00:00 86 /min [facility] Body temperature 2021-02-24 07:00:00 37.39 Alexsandra [facility] Respiratory rate 2021-02-24 07:00:00 18 /min [facility] Oxygen saturation in 2021-02-24 07:00:00 97 /min [facility] Arterial blood by Medical Ce nter Pulse oximetry Body weight 2021-02-07 05:00:00 98.7 kg [facility] BMI 2021-02-07 05:00:00 31.22 kg/m2 [facility] Body height 2021-01-30 12:00:00 177.8 cm [facility] Procedures Procedure Date / Time Performing Clinician Source Performed POCT-GLUCOSE METER 2021-02-24 07:51:[address] [facility] MAGNESIUM 2021-02-24 03:47:00 Gita Ana [facility] BASIC METABOLIC PANEL 2021-02-24 03:47:00 Gita Ana [facility] POCT-GLUCOSE METER 2021-02-23 20:45:[address] [facility] POCT-GLUCOSE METER 2021-02-23 17:13:[address] [facility] POCT-GLUCOSE METER 2021-02-23 12:54:[address] [facility] POCT-GLUCOSE METER 2021-02-23 08:06:[address] [facility] SARS-COV2/RT-PCR ([facility] & 2021-02-23 06:56:00 Melchor Sosa [facility] POCT-GLUCOSE METER 2021-02-22 21:30:[address] [facility] POCT-GLUCOSE METER 2021-02-22 17:29:[address] [facility] POCT-GLUCOSE METER 2021-02-22 11:46:[address] [facility] POCT-GLUCOSE METER 2021-02-22 07:40:[address] [facility] POCT-GLUCOSE METER 2021-02-21 19:47:[address] [facility] POCT-GLUCOSE METER 2021-02-21 16:50:[address] [facility] POCT-GLUCOSE METER 2021-02-21 12:05:[address] [facility] POCT-GLUCOSE METER 2021-02-21 08:17:[address] [facility] MAGNESIUM 2021-02-21 05:23:00 Catherine Pelayoher Aida [facility] BASIC METABOLIC PANEL 2021-02-21 05:23:00 Ana Pelayo [facility] POCT-GLUCOSE METER 2021-02-20 19:56:00 Ana Pelayoee [facility] POCT-GLUCOSE METER 2021-02-20 17:02:00 Ana Pelayo [facility] POCT-GLUCOSE METER 2021-02-20 12:22:00 Ana Pelayoee [facility] POCT-GLUCOSE METER 2021-02-20 07:42:00 Ana Pelayo [facility] POCT-GLUCOSE METER 2021-02-19 20:35:00 Ana Pelayoee [facility] POCT-GLUCOSE METER 2021-02-19 17:50:00 Ana Pelayoee [facility] POCT-GLUCOSE METER 2021-02-19 12:02:00 Ana Pelayoee [facility] POCT-GLUCOSE METER 2021-02-19 07:49:00 Ana Pelayo [facility] POCT-GLUCOSE METER 2021-02-18 20:21:00 Ana Pelayoee [facility] POCT-GLUCOSE METER 2021-02-18 17:43:00 Ana Pelayoee [facility] POCT-GLUCOSE METER 2021-02-18 12:36:00 Ana Pelayoee [facility] POCT-GLUCOSE METER 2021-02-18 07:45:00 Ana Pelayo [facility] MAGNESIUM 2021-02-18 03:09:00 Ana Pelayo [facility] BASIC METABOLIC PANEL 2021-02-18 03:09:00 Ana Pelayo [facility] POCT-GLUCOSE METER 2021-02-17 19:54:00 Ana Pelayo [facility] POCT-GLUCOSE METER 2021-02-17 17:06:00 Ana Pelayo [facility] POCT-GLUCOSE METER 2021-02-17 11:25:00 Ana Pelayo [facility] POCT-GLUCOSE METER 2021-02-17 07:15:00 Ana Pelayo [facility] POCT-GLUCOSE METER 2021-02-16 21:43:00 Ana Pelayo [facility] POCT-GLUCOSE METER 2021-02-16 17:13:00 Ana Pelayo [facility] POCT-GLUCOSE METER 2021-02-16 11:54:00 Ana Pelayo [facility] POCT-GLUCOSE METER 2021-02-16 07:49:00 Ana Pelayo [facility] MAGNESIUM 2021-02-16 05:08:00 Melchor Sosa [facility] BASIC METABOLIC PANEL 2021-02-16 05:08:00 Salina Roldan [facility] SARS-COV2/RT-PCR ([facility] & 2021-02-15 23:15:00 Melchor Sosa [facility] POCT-GLUCOSE METER 2021-02-15 20:56:00 Ana Pelayo I [facility] POCT-GLUCOSE METER 2021-02-15 17:07:00 Ana Pelayo I [facility] POCT-GLUCOSE METER 2021-02-15 12:10:00 Ana Pelayo I [facility] POCT-GLUCOSE METER 2021-02-15 07:24:00 Ana Pelayo [facility] MAGNESIUM 2021-02-15 03:23:00 Melchor Sosa [facility] BASIC METABOLIC PANEL 2021-02-15 03:23:00 Jamar [facility] POCT-GLUCOSE METER 2021-02-14 20:34:00 Gita Anaher Parra [facility] POCT-GLUCOSE METER 2021-02-14 17:09:00 Treverconnie Ana [facility] POCT-GLUCOSE METER 2021-02-14 11:24:00 Ana Pelayo [facility] POCT-GLUCOSE METER 2021-02-14 07:40:00 Jamar [facility] MAGNESIUM 2021-02-14 03:47:00 Ian [facility] BASIC METABOLIC PANEL 2021-02-14 03:47:00 Jamar [facility] POCT-GLUCOSE METER 2021-02-13 21:16:00 Jamar [facility] POCT-GLUCOSE METER 2021-02-13 [facility]:58[facility] 2021-02-13 12:33:00 Jamar [facility] POCT-GLUCOSE METER 2021-02-13 07:43:00 Jamar [facility] MAGNESIUM 2021-02-13 03:35:00 Ian [facility] B-TYPE NATRIURETIC FACTOR 2021-02-13 03:35:00 Jamar [facility] (BNP) [facility] POCT-GLUCOSE METER 2021-02-12 23:30:00 Jamar [facility] POCT-GLUCOSE METER 2021-02-12 17:23:[facility]OLIC PANEL 2021-02-12 16:34:00 Ian [facility] POCT-GLUCOSE METER 2021-02-12 12:07:[facility] POCT-[facility]UCOSE METER 2021-02-12 07:38:00 [facility] BASIC METABOLIC PANEL 2021-02-12 03:23:00 Ian [facility] MAGNESIUM 2021-02-12 03:23:00 Ian [facility] POCT-GLUCOSE METER 2021-02-11 20:37:00 [facility] POCT-GLUCOSE METER 2021-02-11 17:22:00 [facility] POCT-GLUCOSE METER 2021-02-11 12:33:00 [facility] POCT-GLUCOSE METER 2021-02-11 07:51:00 [facility] 2021-02-11 07:15:00 Ian [facility] CBC W/PLT COUNT & AUTO 2021-02-11 [facility] 2021-02-11 07:15[facility]SE [facility] 2021-02-10 20:17:[facility] BASIC [facility]OLIC PANEL 2021-02-10 17:37:00 Ian [facility] POCT-GLUCOSE METER 2021-02-10 16:51[facility]IEW PORTABLE 2021-02-10 14:47:00 Maile Marques [facility] POCT-GLUCOSE METER 2021-02-10 11:56:00 Jamar [facility] COMPREHENSIVE METABOLIC 2021-02-10 08:28:00 Ian [facility] MAGNESIUM 2021-02-10 08:28:00 Ian [facility] POCT-GLUCOSE METER 2021-02-10 07:22:[facility]IEW PORTABLE 2021-02-10 06:55:00 Paige Talavera CH, I [facility] POCT-GLUCOSE METER 2021-02-10 02:04:00 Jamar [facility] POCT-GLUCOSE METER 2021-02-10 01:41:00 Jamar [facility] POCT-GLUCOSE METER 2021-02-09 20:32:00 Jamar [facility] BASIC METABOLIC PANEL 2021-02-09 17:58:00 Ian [facility] POCT-GLUCOSE METER 2021-02-09 17:11:00 Jamar [facility] POCT-GLUCOSE METER 2021-02-09 12:31:[address] Jam[address] [facility] CT CHEST WITHOUT IV 2021-02-09 11:20:00 Ian [facility] XR CHEST 1 VIEW PORTABLE 2021-02-09 08:02:00 Ian [facility] / BEDSIDE [facility] POCT-GLUCOSE METER 2021-02-09 08:00:00 Jamar [facility] SARS-COV2/RT-PCR ([facility] & 2021-02-09 06:23:00 Ina [facility] REF LABS) [facility] COMPREHENSIVE METABOLIC 2021-02-09 06:23:00 Ian [facility] MAGNESIUM 2021-02-09 06:23:00 Ian [facility] CBC (HEMOGRAM ONLY) 2021-02-09 06:23:00 Jamar [facility] POCT-GLUCOSE METER 2021-02-08 20:33:00 Jamar [facility] POCT-GLUCOSE METER 2021-02-08 18:07:00 Jamar [facility] POCT-GLUCOSE METER 2021-02-08 17:11:00 Jamar [facility] BASIC METABOLIC PANEL 2021-02-08 16:57:00 [facility] POCT-GLUCOSE METER 2021-02-08 12:10:00 Salina Roldan [facility] POCT-GLUCOSE METER 2021-02-08 07:20:00 Stephane Hunter [facility] COMPREHENSIVE METABOLIC 2021-02-08 04:23:00 Ian [facility] MAGNESIUM 2021-02-08 04:23:00 [facility] PO[facility]UCOSE METER 2021-02-07 21:38:00 Stephane Hunter [facility] POCT-GLUCOSE METER 2021-02-07 17:05:00 Stephane Hunter [facility] SARS-COV2/RT-PCR ([facility] & 2021-02-07 15:39:00 Howie José [facility]LO[facility], VENOUS 2021-02-07 15:39:00 José [facility] BASIC METABOLIC PANEL 2021-02-07 15:39:00 Ian [facility] CBC (HEMOGRAM ONLY) 2021-02-07 15:39:00 Mary [facility] POCT-GLUCOSE METER 2021-02-07 11:30:00 [facility] POCT-GLUCOSE METER 2021-02-07 05:08:00 Mary [facility] CBC W/PLT COUNT & AUTO 2021-02-07 03:51:00 Howie José [facility] COMPREHENSIVE METABOLIC 2021-02-07 03:51:00 [facility] 2021-02-07 03:51:00 Ian [facility] PHOSPHORUS 2021-02-07 03:51:00 Codi Joséeel [facility] CALCIUM, IONIZED 2021-02-07 03:51:00 Howie José [facility] BLOOD GAS, VENOUS 2021-02-07 03:51:00 José [facility] CBC W/PLT COUNT & AUTO 2021-02-07 03:51:00 [facility] (CELLAVISION MANUAL DIFF) 2021-02-07 03:51:00 Gumary ann [facility] PROTHROMBIN TIME/INR 2021-02-07 03:50:00 Arnav [facility] XR CHEST 1 VIEW PORTABLE 2021-02-07 02:56:00 Ian [facility] POCT-GLUCOSE METER 2021-02-06 23:22:00 Mary [facility] CBC (HEMOGRAM ONLY) 2021-02-06 22:29:00 [facility] 2021-02-06 18:03:00 [facility]LO[facility], VENOUS 2021-02-06 18:03[facility] 2021-02-06 18:03:00 Ian [facility] POCT-GLUCOSE METER 2021-02-06 15:43:00 Mary [facility] POCT-GLUCOSE METER 2021-02-06 11:38:00 Mary [facility] POCT-GLUCOSE METER 2021-02-06 07:46:00 Mary [facility] CBC W/PLT COUNT & AUTO 2021-02-06 04:17:00 [facility] COMPREHENSIVE METABOLIC 2021-02-06 04:17:00 Ian [facility] MAGNESIUM 2021-02-06 04:17:00 Ian [facility] PHOSPHORUS 2021-02-06 04:17:00 Arnav [facility] PROTHROMBIN TIME/INR 2021-02-06 04:17:00 Arnav [facility] CALCIUM, IONIZED 2021-02-06 04:17:00 Howie José [facility] BLOOD GAS, VENOUS 2021-02-06 04:17:00 [facility] CBC W/PLT COUNT & AUTO 2021-02-06 04:17:00 Howie José [facility] XR CHEST 1 VIEW PORTABLE 2021-02-06 02:11:00 [facility] XR ABDOMEN/KUB 1 VIEW 2021-02-05 21:36:00 Sereni [facility] PORTABLE [facility] CBC (HEMOGRAM ONLY) 2021-02-05 21:07:00 [facility] CT DRAINAGE WITH CHEST 2021-02-05 18:46:00 Yaquelin Stephenson [facility] TUBE INSERTION [facility] POCT-GLUCOSE METER 2021-02-05 17:07:00 Mary [facility] BLOOD GAS, VENOUS 2021-02-05 16:47:00 [facility] BASIC METABOLIC PANEL 2021-02-05 16:47:00 Melchor Sosa [facility] POCT-GLUCOSE METER 2021-02-05 15:28:00 Mary [facility] XR CHEST 1 VIEW PORTABLE 2021-02-05 14:31:00 [facility] CBC (HEMOGRAM ONLY) 2021-02-05 13:36:00 [facility] POCT-GLUCOSE METER 2021-02-05 11:02:00 Mary [facility] POCT-GLUCOSE METER 2021-02-05 09:28:00 Mary [facility] SARS-COV2/RT-PCR ([facility] & 2021-02-05 04:07:00 Ian [facility] POCT-GLUCOSE METER 2021-02-05 04:05:00 Ovidio, [facility] CBC W/PLT COUNT & AUTO 2021-02-05 03:53:00 Gul [facility] COMPREHENSIVE METABOLIC 2021-02-05 03:53:00 Esla [facility] PANEL [facility] MAGNESIUM 2021-02-05 03:53:00 Esjanene [facility] PHOSPHORUS 2021-02-05 03:53:00 Gul [facility] PROTHROMBIN TIME/INR 2021-02-05 03:53:00 Gul, [facility] CALCIUM, IONIZED 2021-02-05 03:53:00 Gul, [facility] BLOOD GAS, VENOUS 2021-02-05 03:53:00 [facility] PT/APTT 2021-02-05 03:53:00 Pranav Cortez [facility] CBC W/PLT COUNT & AUTO 2021-02-05 03:53:00 Gumary ann [facility] POCT-GLUCOSE METER 2021-02-05 00:31:00 Ovidio [facility] PREPARE LEUKO-REDUCED RBC 2021-02-04 23:54:00 Pranav Cortez [facility] CBC (HEMOGRAM ONLY) 2021-02-04 19:40:00 [facility] BLOOD GAS, VENOUS 2021-02-04 16:13:00 [facility] BASIC METABOLIC PANEL 2021-02-04 16:13:00 [facility] POCT-GLUCOSE METER 2021-02-04 13:55:00 [facility] CBC (HEMOGRAM ONLY) 2021-02-04 13:53:00 [facility] CT LIMITED/LOCALIZED 2021-02-04 12:50:00 [facility] FOLLOW-UP Medical Center POCT-GLUCOSE METER 2021-02-04 06:21:00 Ovidio [facility] CBC W/PLT COUNT & AUTO 2021-02-04 03:21:00 Arnav [facility] COMPREHENSIVE METABOLIC 2021-02-04 03:21:00 Ian [facility] MAGNESIUM 2021-02-04 03:21:00 Ian [facility] PHOSPHORUS 2021-02-04 03:21:00 Arnav [facility] PROTHROMBIN TIME/INR 2021-02-04 03:21:00 mary ann [facility] CALCIUM, IONIZED 2021-02-04 03:21:00 mary ann [facility] BLOOD GAS, VENOUS 2021-02-04 03:21:00 [facility] APTT 2021-02-04 03:21:00 Lorna Poe [facility] CBC W/PLT COUNT & AUTO 2021-02-04 03:21:00 mary ann [facility] (CELLAVISION MANUAL DIFF) 2021-02-04 03:21:00 Arnav [facility] XR CHEST 1 VIEW PORTABLE 2021-02-04 00:58:00 [facility] XR CHEST 1 VIEW PORTABLE 2021-02-03 20:56:00 SereniThomas harrell [facility] / BEDSIDE [facility] CBC (HEMOGRAM ONLY) 2021-02-03 20:22:00 [facility] POCT-GLUCOSE METER 2021-02-03 17:35:00 Ovidio [facility] BLOOD CULTURE 2021-02-03 17:33:00 [facility] BLOOD GAS, VENOUS 2021-02-03 17:23:00 [facility] BASIC METABOLIC PANEL 2021-02-03 17:22:00 Esla, [facility] CT CHEST WITH IV CONTRAST 2021-02-03 14:01:00 Melchor Sosa [facility] POCT-GLUCOSE METER 2021-02-03 11:38:00 Ovidio, [facility] BLOOD GAS, ARTERIAL 2021-02-03 11:33:00 [facility] VITAMIN B12 AND FOLATE 2021-02-03 10:39:00 [facility] CBC (HEMOGRAM ONLY) 2021-02-03 10:39:00 [facility] CBC W/PLT COUNT & AUTO 2021-02-03 06:50:00 Gul [facility] COMPREHENSIVE METABOLIC 2021-02-03 06:50:00 Ian [facility] MAGNESIUM 2021-02-03 06:50:00 Ian [facility] PHOSPHORUS 2021-02-03 06:50:00 Gul [facility] PROTHROMBIN TIME/INR 2021-02-03 06:50:00 Gul [facility] CALCIUM, IONIZED 2021-02-03 06:50:00 Gul [facility] BLOOD GAS, VENOUS 2021-02-03 06:50:00 [facility] W/PLT COUNT & AUTO 2021-02-03 06:50:00 Gul [facility] POCT-GLUCOSE METER 2021-02-03 05:48:00 Ovidio [facility] XR CHEST 1 VIEW PORTABLE 2021-02-03 03:26:00 [facility] [place] TRANSFUSE LEUKO-REDUCED 2021-02-03 03:25:00 Pranav Cortez [facility] RED BLOOD CELLS Medical Center POCT-GLUCOSE METER 2021-02-03 00:13:00 [facility] BLOOD GAS, VENOUS 2021-02-02 23:26:00 [facility] BASIC METABOLIC PANEL 2021-02-02 23:26:00 [facility] MAGNESIUM 2021-02-02 23:26:00 [facility] PHOSPHORUS 2021-02-02 23:26:00 [facility] CBC (HEMOGRAM ONLY) 2021-02-02 23:26:00 [facility] POCT-GLUCOSE METER 2021-02-02 18:37:00 [facility]OL[facility] PANEL 2021-02-02 17:05:00 [facility] PHOSPHORUS 2021-02-02 17:05:00 [facility] MAGNESIUM 2021-02-02 17:05:00 [facility] VANCOMYCIN LEVEL, TROUGH 2021-02-02 17:04:00 [facility] BLOOD GAS, VENOUS 2021-02-02 17:04:00 [facility] BASIC METABOLIC PANEL 2021-02-02 13:17:00 [facility] PHOSPHORUS 2021-02-02 13:17:00 [facility] POCT-GLUCOSE METER 2021-02-02 12:15:00 [facility] SODIUM, RANDOM URINE 2021-02-02 10:28:00 [facility] CHLORIDE, RANDOM URINE 2021-02-02 10:28:00 [facility] POTASSIUM, RANDOM URINE 2021-02-02 10:28:00 [facility] LACTIC ACID, ARTERIAL 2021-02-02 10:25:00 [facility] CBC (HEMOGRAM ONLY) 2021-02-02 10:25:00 [facility] BLOOD GAS, ARTERIAL 2021-02-02 08:34:00 Esla, [facility] POCT-GLUCOSE METER 2021-02-02 06:47:00 Ovidio [facility] BLOOD GAS, ARTERIAL 2021-02-02 03:19:00 [facility] & AUTO 2021-02-02 03:18:00 Gul [facility] COMPREHENSIVE METABOLIC 2021-02-02 03:18:00 Ian [facility] MAGNESIUM 2021-02-02 03:18:00 Ian [facility] PHOSPHORUS 2021-02-02 03:18:00 Arnav [facility] PROTHROMBIN TIME/INR 2021-02-02 03:18:00 Arnav [facility] CALCIUM, IONIZED 2021-02-02 03:18:00 Arnav [facility] HC LAB HIV-1 AG W/HIV-1&2 2021-02-02 03:18:00 Carlos Damian [facility] CBC W/PLT COUNT & AUTO 2021-02-02 03:18:[address] [facility] XR CHEST 1 VIEW PORTABLE 2021-02-02 03:01:00 José [facility] / BEDSIDE [facility] POCT-GLUCOSE METER 2021-02-01 23:51:00 Ovidio [facility] BLOOD GAS, ARTERIAL 2021-02-01 20:55:00 Ian [facility] CBC (HEMOGRAM ONLY) 2021-02-01 20:54:00 [facility]IC METABOLIC PANEL 2021-02-01 20:54:00 José [facility] MAGNESIUM 2021-02-01 20:54:00 José [facility] PHOSPHORUS 2021-02-01 20:54:00 [facility] LACTIC ACID, ARTERIAL 2021-02-01 20:54:00 SeemaTracelink [facility] HEMOGLOBIN AND HEMATOCRIT 2021-02-01 18:07:00 [facility] LACTIC ACID, ARTERIAL 2021-02-01 18:07:00 [facility] POCT-GLUCOSE METER 2021-02-01 18:05:00 Ovidio Sander [facility] BLOOD GAS, ARTERIAL 2021-02-01 15:42:00 [facility] W/PLT COUNT & AUTO 2021-02-01 15:40:00 [facility] COMPREHENSIVE METABOLIC 2021-02-01 15:40:00 [facility] MAGNESIUM 2021-02-01 15:40:00 Esjanene [facility] PHOSPHORUS 2021-02-01 15:40:[facility] W/PLT COUNT & AUTO 2021-02-01 15:40:00 [facility] (CELLAVISION MANUAL DIFF) 2021-02-01 15:40:00 [facility] XR ABDOMEN/KUB 1 VIEW 2021-02-01 15:15:00 [facility] PORTABLE [facility] GLUCOSE, BODY FLUID 2021-02-01 15:07:00 [facility] 1 VIEW PORTABLE 2021-02-01 15:05:00 José [facility] / BEDSIDE [facility] BODY FLUID CELL COUNT 2021-02-01 14:38:41 Jorge Hinton [facility] WITH [facility] AMYLASE PERITONEAL FLUID 2021-02-01 14:38:41 Jorge Hinton [facility] PROTEIN, BODY FLUID 2021-02-01 14:38:41 Jorge Hinton [facility] PH, BODY FLUID 2021-02-01 14:38:41 Jorge Hinton [facility] AFB CULTURE + SMEAR 2021-02-01 14:38:00 EsMelchor watters [facility] (NON-SPUTUM) [facility] WOUND CULTURE + GRAM 2021-02-01 14:38:00 Ian [facility] FUNGUS CULTURE + SMEAR 2021-02-01 14:38:00 [facility] SPIN/CONCENTRATION CHARGE 2021-02-01 14:38:00 Melchor Sosa [facility] BODY FLUID CELL COUNT 2021-02-01 14:32:35 Jorge Hinton [facility] WITH DIFFERENTIAL [facility] PROTEIN, BODY FLUID 2021-02-01 14:32:35 Jorge Hinton [facility] AFB CULTURE + SMEAR 2021-02-01 14:32:00 José [facility] (NON-SPUTUM) [facility] BODY FLUID CULTURE + GRAM 2021-02-01 14:32:00 José [facility] FUNGUS CULTURE + SMEAR 2021-02-01 14:32:00 [facility] CYTOLOGY 2021-02-01 14:32:00 [facility] RRL CRITICAL LABS 2021-02-01 14:04:53 [facility] (ABG,NA,K,H&H,GLUCOSE) Medical C enter CALCIUM, IONIZED 2021-02-01 14:04:53 [facility] BLOOD GAS, ARTERIAL 2021-02-01 14:04:53 [facility] SODIUM NA-STAT LAB 2021-02-01 14:04:53 [facility] POTASSIUM-STAT LAB 2021-02-01 14:04:53 [facility] GLUCOSE-STAT LAB 2021-02-01 14:04:53 [facility] HGB/HCT (H&H) - STAT LAB 2021-02-01 14:04:53 [facility] TISSUE EXAM 2021-02-01 13:43:00 Jorge Hinton [facility] RRL CRITICAL LABS 2021-02-01 11:35:51 [facility] (ABG,NA,K,H&H,GLUCOSE) Medical C enter CALCIUM, IONIZED 2021-02-01 11:35:51 [facility] BLOOD GAS, ARTERIAL 2021-02-01 11:35:51 [facility] SODIUM NA-STAT LAB 2021-02-01 11:35:51 [facility] POTASSIUM-STAT LAB 2021-02-01 11:35:51 [facility] GLUCOSE-STAT LAB 2021-02-01 11:35:51 [facility] THORACOSCOPY 2021-02-01 09:32:00 Jorge Hinton [facility] (VATS),DECORTICATION Medical Fan ter COMPREHENSIVE METABOLIC 2021-02-01 07:44:00 Ian [facility] PHOSPHORUS 2021-02-01 07:44:00 Esjanene [facility] MAGNESIUM 2021-02-01 07:44:00 Ian [facility] CBC (HEMOGRAM ONLY) 2021-02-01 07:44:00 Ian [facility] LIPASE 2021-02-01 07:44:00 Jorge Hinton [facility] POCT-GLUCOSE METER 2021-02-01 06:50:00 Sander Nolan [facility] PREPARE PLASMA 2021-02-01 06:32:00 Pranav Cortez [facility] BLOOD GAS, ARTERIAL 2021-02-01 03:48:[address] [facility] CBC W/PLT COUNT & AUTO 2021-02-01 03:47:00 Howie José [facility] COMPREHENSIVE METABOLIC 2021-02-01 03:47:00 [facility] MAGNESIUM 2021-02-01 03:47:00 EsMelchor watters [facility] PHOSPHORUS 2021-02-01 03:47:00 Gumary ann Howie [facility] PROTHROMBIN TIME/INR 2021-02-01 03:47:00 José [facility] CALCIUM, IONIZED 2021-02-01 03:47:00 GuHowie reese [facility] APTT 2021-02-01 03:47:00 José [facility] CBC W/PLT COUNT & AUTO 2021-02-01 03:47:00 Thomas Mendoza [facility] DIFFERENTIAL [facility] POCT-GLUCOSE METER 2021-02-01 00:27:00 [facility] POCT-[facility]UCOSE METER 2021-01-31 21:27:00 Ovidio, [facility] ABORH, MANUAL 2021-01-31 21:00:00 [facility] SARS-COV2/RT-PCR ([facility] & 2021-01-31 17:58:00 Howie José [facility] REF LABS) Medical Center TYPE AND SCREEN, 2021-01-31 17:58:00 José [facility] POCT-GLUCOSE METER 2021-01-31 17:22:00 Ovidio, [facility] US ABDOMEN LIMITED 2021-01-31 14:25:00 José [facility] POCT-GLUCOSE METER 2021-01-31 12:30:00 Nila Monroe [facility] CT BRAIN WITHOUT IV 2021-01-31 11:50:00 Jorge Kumar [facility] CT CHEST WITH IV CONTRAST 2021-01-31 11:50:00 Jorge Kumar [facility] CT ABDOMEN/PELVIS WITH IV 2021-01-31 11:50:00 José [facility] LEGIONELLA ANTIGEN, URINE 2021-01-31 10:40:00 José [facility] LACTIC ACID, ARTERIAL 2021-01-31 10:40:00 Sander Nolan [facility] AMMONIA 2021-01-31 10:39:00 José [facility] 2D ECHO MODE W/O DOPPLER 2021-01-31 10:18:02 Coretta Kolb Chi [facility] TSH/FREE T4 IF INDICATED 2021-01-31 08:57:00 José [facility] XR CHEST 1 VIEW PORTABLE 2021-01-31 07:55:00 Ian [facility] POCT-GLUCOSE METER 2021-01-31 06:11:00 Nila Monroe [facility] BLOOD GAS, ARTERIAL 2021-01-31 02:55:[address] [facility] HEMOGLOBIN A1C 2021-01-31 02:54:00 Yanet Astorga [facility] HEPATITIS C PCR, 2021-01-31 02:54:00 Coretta Kolb [facility] CBC W/PLT COUNT & AUTO 2021-01-31 02:54:00 Howie José [facility] COMPREHENSIVE METABOLIC 2021-01-31 02:54:00 [facility] LIPID PANEL 2021-01-31 02:54:00 Sermustapha [facility] MAGNESIUM 2021-01-31 02:54:00 Ian [facility] PHOSPHORUS 2021-01-31 02:54:00 GulHowie Resnick [facility] PROTHROMBIN TIME/INR 2021-01-31 02:54:00 Gul [facility] CALCIUM, IONIZED 2021-01-31 02:54:00 Howie José [facility] LACTATE DEHYDROGENASE 2021-01-31 02:54:00 José Jorge [facility] ([facility]) [facility] CBC W/PLT COUNT & AUTO 2021-01-31 02:54:00 Thomas Mendoza [facility] DIFFERENTIAL [facility] (CELLAVISION MANUAL DIFF) 2021-01-31 02:54:00 Thomas Mendoza I [facility] POCT-GLUCOSE METER 2021-01-30 23:52:00 Adhannie [facility] XR ABDOMEN/KUB 1 VIEW 2021-01-30 20:09:00 Rizwan [facility] PORTABLE [place] POCT-GLUCOSE METER 2021-01-30 18:06:00 Mabel, [facility] LACTIC ACID, VENOUS 2021-01-30 17:52:00 Rizwan [facility] ECG 12-LEAD 2021-01-30 16:45:08 Unknown, Hl7 [facility] ECG 12-LEAD 2021-01-30 16:45:08 Unknown, Hl7 [facility] XR ABDOMEN/KUB 1 VIEW 2021-01-30 15:37:00 Rizwan [facility] XR CHEST 1 VIEW PORTABLE 2021-01-30 15:32:00 Coretta Kolb Chi [facility] / BEDSIDE [facility] [place] MRSA SCREEN 2021-01-30 15:14:00 Rziwan [facility] BLOOD GAS, ARTERIAL 2021-01-30 15:12:00 Rizwan [facility] LACTIC ACID, VENOUS 2021-01-30 15:05:00 Rizwan [facility] LACTATE DEHYDROGENASE 2021-01-30 15:05:00 Coretta Kolb Chi [facility] ([facility]) [facility] AMYLASE 2021-01-30 15:05:00 Coretta Kolb [facility] VANCOMYCIN LEVEL, RANDOM 2021-01-30 15:04:00 Jolene Vazquez [facility] CYTOLOGY 2021-01-30 15:01:00 Coretta Kolb [facility] PROTEIN, BODY FLUID 2021-01-30 15:00:00 Cortes [facility] BODY FLUID CULTURE + GRAM 2021-01-30 15:00:00 Coretta Kolb Star Christina [facility] BODY FLUID CELL COUNT 2021-01-30 15:00:00 Coretta Kolb [facility] WITH DIFFERENTIAL [facility] AMYLASE, BODY FLUID 2021-01-30 15:00:00 Adhi, [facility] GLUCOSE, BODY FLUID 2021-01-30 15:00:00 Adhi, [facility] LACTATE DEHYDROGENASE 2021-01-30 15:00:00 [facility] ([facility] TRIGLYCERIDES, PLEURAL 2021-01-30 14:59:00 Adhi, Nilathomas [facility] RESPIRATORY PANEL 2021-01-30 13:37:[address] [facility] PROTHROMBIN TIME/INR 2021-01-30 13:37:00 Rizwan [facility] HIGH SENSITIVITY TROPONIN 2021-01-30 13:37:00 Yanet Astorga [facility] XR CHEST 1 VIEW PORTABLE 2021-01-30 13:23:00 Yanet Astorga [facility] / BEDSIDE [place] POCT-GLUCOSE METER 2021-01-30 13:22:00 Mabel [facility] BLOOD CULTURE 2021-01-30 13:14:00 [facility] LEGIONELLA ANTIGEN, URINE 2021-01-30 13:06:00 Yanet Astorga [facility] BLOOD GAS, VENOUS 2021-01-30 12:36:00 Coretta Kolb Chioc [facility] BLOOD CULTURE 2021-01-30 12:28:00 Rizwan [facility] BLOOD CULTURE 2021-01-30 12:28:00 Rizwan [facility] IDENTIFICATION [facility] ter BLOOD GAS, ARTERIAL 2021-01-30 12:26:00 Rizwan [facility] PROTHROMBIN TIME/INR 2021-01-30 12:26:00 Rizwan [facility] TSH/FREE T4 IF INDICATED 2021-01-30 12:26:[address] [facility] VITAMIN B12 AND FOLATE 2021-01-30 12:26:00 Rizwan [facility] APTT 2021-01-30 12:26:00 Rizwan [facility] PHOSPHORUS 2021-01-30 12:25:00 Rizwan [facility] MAGNESIUM 2021-01-30 12:25:00 Rizwan [facility] COMPREHENSIVE METABOLIC 2021-01-30 12:25:00 Rizwan [facility] CBC W/PLT COUNT & AUTO 2021-01-30 12:25:00 Rizwan [facility] DIFFERENTIAL [place] LACTIC ACID, VENOUS 2021-01-30 12:25:00 Rizwan [facility] CBC W/PLT COUNT & AUTO 2021-01-30 12:25:00 Rizwan [facility] (CELLAVISION MANUAL DIFF) 2021-01-30 12:25:00 Yanet Astorga [facility] EKG-SCANNED 2021-01-30 00:00:00 [facility]ory [facility] Planned Activity Planned Date Details Comments Source Future Scheduled 2024-02-01 Lipid panel (procedure) [facility] Test 00:00:00 [code = 80507910] Medical Ce nter Future Scheduled 2024-02-01 Lipid panel (procedure) [facility] Test 00:00:00 [code = 19015697] Medical Ce nter Future Scheduled 2022-10-[address] [facility] Test 00:00:00 (Season Ended) [code = [facility] Influenza Vaccine (Season Ended)] Future Scheduled 2022-02-[address] [facility] Test 00:00:00 (12+) [code = Medical Center DEPRESSION SCREENING (12+)] Future Scheduled 2022-01-[address] [facility] Test 00:00:00 Counseling and Medical Cente r Screening (12+) [code = Tobacco Cessation Counseling and Screening (12+)] Future Scheduled 2022-01-[address] [facility] Future Scheduled 2008-01-13 SHINGLES VACCINES ([address] [facility] Test 00:00:00 2) [facility] Future Scheduled 1977 DTAP/TDAP/TD [facility]ACCINES [facility]00 (1 - Tdap) [code = Medical C enter DTAP/TDAP/TD VACCINES (1 - Tdap)] Future Scheduled 1977 DTAP/TDAP/TD VACCINES CH I [...] Fan ter VACCINE (#1)] Future Scheduled 1958 COVID-19 VACCINE (#1) [facility]:00 [code = COVID-[address] VACCINE (#1)] Future Scheduled 1958 CT Colonography (combo) [facility] Test 00:00:00 [code = CT Colonography [facility] (combo)] Future Scheduled 1958 Screening for malignant [facility] Test 00:00:00 neoplasm of colon Medical Ce nter (procedure) [code = 848986324] Future Scheduled 1958 Screening for malignant [facility] Test 00:00:00 neoplasm of colon Medical Ce nter (procedure) [code = 499560212] Future Scheduled 1958 Screening for malignant [facility] Test 00:00:00 neoplasm of colon Medical Ce nter (procedure) [code = 124419939] Future Scheduled 1958 Screening for malignant [facility] Test 00:00:00 neoplasm of colon Medical Ce nter (procedure) [code = 403853695] Future Scheduled 1958 Sigmoidoscopy [code = [facility] S[facility]oscopy] Medical Cente r Future Scheduled 1958 CT Colonography (combo) [facility] Test 00:00:00 [code = CT Colonography Medi [facility] (combo)] Future Scheduled 1958 Screening for malignant [facility] Test 00:00:00 neoplasm of colon Medical Ce nter (procedure) [code = 465082566] Future Scheduled 1958 Screening for malignant [facility] Test 00:00:00 neoplasm of colon Medical Ce nter (procedure) [code = 944049476] Future Scheduled 1958 Screening for malignant [facility] Test 00:00:00 neoplasm of colon Medical Ce nter (procedure) [code = 527505565] Future Scheduled 1958 Screening for malignant [facility] Test 00:00:00 neoplasm of colon Medical Ce nter (procedure) [code = 311188379] Future Scheduled 1958 Sigmoidoscopy [facility]code [facility] S[facility]oscopy] Medical Cente r Encounters Start End Encounter Admission Attending Care Care Encounter Source Date/Time Date/Time Type Type Clinicians Facility Department ID 2021-01-30 2021-02-24 Hospital UR Nila Monroe Dennys [facility] [id number] 11:38:00 10:00:00 Encounter Sander [facility] Ana Foster Khannan Kameshvaran 2021-01-30 2021-02-24 Inpatient UR GUSTAVO ARCHANA [facility] [id number] [facility] 11:38:00 10:00:00 MICHELLE hannah 2021-02-05 2021-02-05 Surgery Ericka, [facility] [id number] [facility] 13:30:00 14:09:00 [facility] 2021-02-05 2021-02-05 Anesthesia Johnna Weldon [facility] [id number] [facility] 13:30:[facility] 13:30:00 Event Paolo autumnlaura [facility] 2021-02-01 2021-02-01 Surgery Jorge Hinton [facility] [id number] 09:25:00 14:34:00 [facility] 2021-02-01 2021-02-01 Anesthesia Oneil Zamorano [facility] [id number] 09:44:00 14:13:00 Event Ignacio Muhammad [facility] 2021-02-01 2021-02-01 Outside Darío [facility] [id number] 00:00:00 00:00:00 Orders [facility] 2021-01-30 2021-01-30 Outpatient [facility] [id number] [facility] 00:00:00 23:59:00 Claude 2021-01-30 2021-01-30 Orders [facility] [id number] [facility] [facility] [address] 00:00:00 00:00:00 Only [facility] 2021-01-30 2021-01-30 Travel [facility] [id number] [facility] 00:00:00 00:00:00 [facility] 2021-01-29 2021-01-29 Telephone Adhi, [facility] [id number] [facility] 00:00:00 00:00:00 [facility] Results Test Description Test Time Test Comments Results Result Comments Source AFB culture + smear (non-sputum) 2021-03-23 15:36:09 Test Item Value Reference Range Interpretation Comme nts Result (test code = 6463-4) No acid-fast bacilli isolated in 42 day s AFB Smear (test code = 23352-1) No acid fast bacilli seen [facility] (NON-SPUTUM)2021-03-23 15:36:09 [...] code = 994) seen Fungus culture + [id number] 00:10:39 Test Item Value Reference Range Interpretation Comments Result (test code = No fungus isolated in 6463-4) 28 days Fungus Smear (test No fungi seen code = 1406) [facility] + [id number] 00:10:39 Test Item Value Reference Range Interpretation Comments CULTURE (BEAKER) (test No fungus isolated in code = 1095) 28 days FUNGUS SMEAR (BEAKER) No fungi seen (test code = 1406) FUNGUS CULTURE + [id number] 21:03:59 Test Item Value Reference Range Interpretation Comments CULTURE (BEAKER) (test No fungus isolated in code = 1095) 28 days FUNGUS SMEAR (BEAKER) No fungi seen (test code = 1406) POC-Glucose [id number] 08:02:16 Test Item Value Reference Range Interpretation Comments POC-Glucose Meter (test 144 mg/dL 70-110 H : TE STED AT [facility] code = 1538) [address] [facility], 770 30: Electric Motor Tester Assembler/Techni bobby ID = [id number] for Navarrete Saramary ann on Lab Interpretation (test Abnormal code = 28878-8) [facility] Center[facility]GLUCOSE [id number] 08:02:16 Test Item Value Reference Range Interpretation Comments POC-GLUCOSE METER 144 mg/dL 70-110 H : TESTED A T [facility] 6720 ([facility]) (test code = BERTDESIREE R [facility], 1538) 94819: Electric Motor Tester Assembler/Techni bobby ID = [id number] for Rubén Telles Basic Metabolic [id number] 04:47:30 Test Item Value Reference Range Interpretation [...] (test code = 10.7 mg/dL 8.4-10.2 H 97958-6) EGFR (test code = 122 mL/min/1.73 [place] [address]-2) NOT ACCURATE CREATININE CLEARANCE IN PREDICTING GLOMERULAR FILTRATION RATE . ESTIMATED GFR I S NOT APPLICABLE FOR DIALYSIS PATIENTS. RUTHIE (test code = RUTHIE) Electric Motor Tester Assembler ID Soo Heredia Lab Interpretation Abnormal (test code = 94856-8) [facility] Center[facility]esium2022-01-15 04:47:30 Test Item Value Reference Range Interpretation Comments Magnesium (test code = 1.9 mg/dL 1.6-2.6 21757-1) RUTHIE (test code = RUTHIE) Electric Motor Tester Assembler ID - ALVERTO G Lab Interpretation (test Normal code = 71578-9) [facility] CenterBASI METABOLIC [id number] 04:47:30 Test Item Value Reference Range Interpretation [...] S NOT APPLICABLE FOR DIALYSIS PATIEN TS. Electric Motor Tester Assembler ID - ALVERTO [id number] 04:47:30 Test Item Value Reference Range Interpretation Comments MAGNESIUM (BEAKER) (test code = 1.9 mg/dL 1.6-2.6 627) Electric Motor Tester Assembler ID - ALVERTO GPOCT-GLUCOSE [id number] 20:56:33 Test Item Value Reference Range Interpretation Comments POC-GLUCOSE METER 165 mg/dL 70-110 H : TESTED A T [facility] 6720 (BEAKER) (test code = [facility], 1538) 00741: Electric Motor Tester Assembler/Techni bobby ID = [id number] for Luna Sykes POCT-GLUCOSE [id number] 17:24:50 Test Item Value Reference Range Interpretation Comments POC-GLUCOSE METER 128 mg/dL 70-110 H : TESTED A T [facility] 6720 (BEAKER) (test code = [facility], 1538) 30843: Electric Motor Tester Assembler/Techni bobby ID = [id number] for Felix Valdivia POCT-GLUCOSE [id number] 13:05:49 Test Item Value Reference Range Interpretation Comments POC-GLUCOSE METER 154 mg/dL 70-110 H : TESTED Amilcar Trevizo [facility] 6720 (BREANNA) (test code = [place], 1538) 21220: Electric Motor Tester Assembler/Techni bobby ID = [id number] for Felix Vladivia SARS-CoV2/RT-PCR (Symptomatic ONLY)2021-02-23 12:31:29 Test Item Value Reference Range Interpretation Comments SARS-COV2/RT-PCR Negative Not Detected, (test code = Negative, See 401[address]-4) external report for linked test SARS-COV-2 [facility] TAMIKO PERFORMING LAB (test code = 18767-7) RUTHIE (test code = Negative result for [...] of the Act. Fact Sheet for Healthcare Providers:https://www.qu idel.com/sites/default/f keith/product/documents/F act_Sheet_HC_Providers_L uwm_KCIH-NhZ-3.pdf Fact Sheet for Healthcare Patients:https://www.[employer]/sites/default/fi les/product/documents/Fa ct_Sheet_Patients_Lyra_S ARS-CoV-2.pdf Performing Laboratory:[facility], [place] [address] [place], [place] [address]ARS-COV2/RT-PCR ([facility] & REF LABS)2021-02-23 12:31:29 Test Item Value Reference Range Interpretation Comments SARS-COV2/RT-PCR (test Negative Not Detected, Negative, code = 8106873) See external report for linked test SARS-COV-2 PERFORMING LAB [facility] TAMIKO (test code = 2020118) Negative result for this test determines that [...] of the Act.Fact Sheet for Healthcare Prov iders:https://www.[employer]/sites/default/files/product/documents/Fact_Sheet_HC _Umpaomdnu_Esja_DUXG-MlQ-2.pdfFact Sheet for Healthcare Patients:https://www.[employer]/sites/default/files/product/docume nts/Hhfw_Valhf_Jxomudjm_Wwxy_YQIE-JhF-3.pdfPerforming Laboratory:[facility], [place] [address]LFHH-SEKKQZN METER 2021-02-23 08:17:59 Test Item Value Reference Range Interpretation Comments POC-GLUCOSE METER 236 mg/dL 70-110 H : TESTED A T [facility] 6720 (BEAKER) (test code = [facility], 1538) 11471: Electric Motor Tester Assembler/Techni bobby ID = [id number] for Ro Felix mora POCT-GLUCOSE [id number] 21:41:22 Test Item Value Reference Range Interpretation Comments POC-GLUCOSE METER 199 mg/dL 70-110 H : TESTED A T [facility] 6720 (BEAKER) (test code = [facility], 1538) 83420: Electric Motor Tester Assembler/Techni bobby ID = [id number] for PI CARLTON CRISTINA POCT-GLUCOSE [id number] 17:41:07 Test Item Value Reference Range Interpretation Comments POC-GLUCOSE METER 138 mg/dL 70-110 H : TESTED A T [facility] 6720 (BEAKER) (test code = [facility], 1538) 50612: Electric Motor Tester Assembler/Techni bobby ID = [id number] for OR PHEY, MYNOR POCT-GLUCOSE [id number] 11:59:32 Test Item Value Reference Range Interpretation Comments POC-GLUCOSE METER 192 mg/dL 70-110 H : TESTED A T [facility] 6720 (BEAKER) (test code = [facility], 1538) 04792: Electric Motor Tester Assembler/Techni bobby ID = [id number] for OR PHEY, MYNOR POCT-GLUCOSE [id number] 07:52:49 Test Item Value Reference Range Interpretation Comments POC-GLUCOSE METER 216 mg/dL 70-110 H : TESTED A T [facility] 6720 (BEAKER) (test code = [facility], 1538) 93580: Electric Motor Tester Assembler/Techni bobby ID = [id number] for OR MYNOR HOOKER POCT-GLUCOSE [id number] 19:58:21 Test Item Value Reference Range Interpretation Comments POC-GLUCOSE METER 161 mg/dL 70-110 H : TESTED A T [facility] 6720 (BEAKER) (test code = [facility], 1538) 05133: Electric Motor Tester Assembler/Techni bobby ID = [id number] for CRISTINA SHEIKH POCT-GLUCOSE [id number] 17:01:38 Test Item Value Reference Range Interpretation Comments POC-GLUCOSE METER 125 mg/dL 70-110 H : TESTED A T [facility] 6720 (BEAKER) (test code = [facility], 1538) 74999: Electric Motor Tester Assembler/Techni bobby ID = [id number] for MIGNON-LUCY, S HIKARA POCT-GLUCOSE [id number] 12:17:24 Test Item Value Reference Range Interpretation Comments POC-GLUCOSE METER 185 mg/dL 70-110 H : TESTED A T [facility] 6720 (BEAKER) (test code = [facility], 1538) 35231: Electric Motor Tester Assembler/Techni bobby ID = [id number] for MIGNON-LUCY, S HIKARA POCT-GLUCOSE [id number] 08:29:46 Test Item Value Reference Range Interpretation Comments POC-GLUCOSE METER 143 mg/dL 70-110 H : TESTED A T [facility] 6720 (BEAKER) (test code = [facility], 1538) 16709: Electric Motor Tester Assembler/Techni bobby ID = [id number] for MIGNON-LUCY, S HIKARA [id number] 06:36:54 Test Item Value Reference Range Interpretation Comments [facility] (BEAKER) (test code = 1.7 mg/dL 1.6-2.6 627) Electric Motor Tester Assembler ID - REANNA LBASIC METABOLIC [id number] 06:36:53 Test Item Value Reference Range Interpretation [...] S NOT APPLICABLE FOR DIALYSIS PATIEN TS. Electric Motor Tester Assembler ID - PRIYAZEKE LPOCT-GLUCOSE [id number] 20:07:42 Test Item Value Reference Range Interpretation Comments POC-GLUCOSE METER 152 mg/dL 70-110 H : TESTED A T [facility] 6720 (BEAKER) (test code = [facility], [facility]) 21242: Electric Motor Tester Assembler/Techni bobby ID = [id number] for PI CARLTON CRISTINA POCT-GLUCOSE [id number] 17:13:20 Test Item Value Reference Range Interpretation Comments POC-GLUCOSE METER 124 mg/dL 70-110 H : TESTED A T [facility] 6720 (BEAKER) (test code = [facility], [facility]8) 63720: Electric Motor Tester Assembler/Techni bobby ID = [id number] for Ba rrera, Ai POCT-GLUCOSE [id number] 12:33:39 Test Item Value Reference Range Interpretation Comments POC-GLUCOSE METER 191 mg/dL 70-110 H : TESTED A T [facility] 6720 (BEAKER) (test code = [facility], 1538) 52844: Electric Motor Tester Assembler/Techni bobby ID = [id number] for Ba rrera, Ai POCT-GLUCOSE [id number] 07:54:08 Test Item Value Reference Range Interpretation Comments POC-GLUCOSE METER 176 mg/dL 70-110 H : TESTED A T [facility] 6720 (BEAKER) (test code = [facility], [facility]) 03761: Electric Motor Tester Assembler/Techni bobby ID = [id number] for Ai Carpenter POCT-GLUCOSE [id number] 20:47:01 Test Item Value Reference Range Interpretation Comments POC-GLUCOSE METER 142 mg/dL 70-110 H : TESTED A T [facility] 6720 (BEAKER) (test code = [facility], 1538) 96508: Electric Motor Tester Assembler/Techni bobby ID = [id number] for Re yes, Sairy POCT-GLUCOSE [id number] 18:00:39 Test Item Value Reference Range Interpretation Comments POC-GLUCOSE METER 149 mg/dL 70-110 H : TESTED A T [facility] 6720 (BEAKER) (test code = [facility], [facility]) 13442: Electric Motor Tester Assembler/Techni bobby ID = [id number] for Ma rtinez Mcleod, Tanairy POCT-GLUCOSE [id number] 12:13:44 Test Item Value Reference Range Interpretation Comments POC-GLUCOSE METER 179 mg/dL 70-110 H : TESTED A T [facility] 6720 (BEAKER) (test code = [facility], [facility]) 12151: Electric Motor Tester Assembler/Techni bobby ID = [id number] for Ma rtinez Mcleod, Tanairy POCT-GLUCOSE [id number] 08:00:34 Test Item Value Reference Range Interpretation Comments POC-GLUCOSE METER 170 mg/dL 70-110 H : TESTED A T [facility] 6720 (BEAKER) (test code = [facility], [facility]) 54702: Electric Motor Tester Assembler/Techni bobby ID = [id number] for Ma rtinez Mcleod, Tanairy POCT-GLUCOSE [id number] 20:32:38 Test Item Value Reference Range Interpretation Comments POC-GLUCOSE METER 174 mg/dL 70-110 H : TESTED A T [facility] 6720 (BEAKER) (test code = [facility], [facility]) 17324: Electric Motor Tester Assembler/Techni bobby ID = [id number] for Re yes, Sairy POCT-GLUCOSE [id number] 17:55:08 Test Item Value Reference Range Interpretation Comments POC-GLUCOSE METER 186 mg/dL 70-110 H : TESTED A T [facility] 6720 (BEAKER) (test code = [facility], [facility]) 44755: Electric Motor Tester Assembler/Techni bobby ID = [id number] for Thomas Mcleod, Nilayairy POCT-GLUCOSE [id number] 12:48:05 Test Item Value Reference Range Interpretation Comments POC-GLUCOSE METER 158 mg/dL 70-110 H : TESTED A T [facility] 6720 (BEAKER) (test code = [facility], 1538) 40662: Electric Motor Tester Assembler/Techni bobby ID = [id number] for Thomas Mcleod, Nilayairy POCT-GLUCOSE [id number] 07:56:26 Test Item Value Reference Range Interpretation Comments POC-GLUCOSE METER 164 mg/dL 70-110 H : TESTED A T [facility] 6720 (BEAKER) (test code = [facility], 1538) 55669: Electric Motor Tester Assembler/Techni bobby ID = [id number] for Thomas Mcleod, Nilayairy BASIC METABOLIC [id number] 03:49:39 Test Item Value Reference Range Interpretation [...] S NOT APPLICABLE FOR DIALYSIS PATIEN TS. Electric Motor Tester Assembler ID - [id number] 03:49:39 Test Item Value Reference Range Interpretation Comments MAGNESIUM (BEAKER) (test code = 1.8 mg/dL 1.6-2.6 627) Electric Motor Tester Assembler ID - DBPOCT-GLUCOSE [id number] 20:05:45 Test Item Value Reference Range Interpretation Comments POC-GLUCOSE METER 150 mg/dL 70-110 H : TESTED A T [facility] 6720 (BEAKER) (test code = [facility], [facility]) 56217: Electric Motor Tester Assembler/Techni bobby ID = [id number] for CRISTINA SHEIKH POCT-GLUCOSE [id number] 17:17:24 Test Item Value Reference Range Interpretation Comments POC-GLUCOSE METER 159 mg/dL 70-110 H : TESTED A T [facility] 6720 (BEAKER) (test code = [facility], [facility]) 30974: Electric Motor Tester Assembler/Techni bobby ID = [id number] for RYNE HN, WILLIAM POCT-GLUCOSE [id number] 11:37:13 Test Item Value Reference Range Interpretation Comments POC-GLUCOSE METER 185 mg/dL 70-110 H : TESTED A T [facility] 6720 (BEAKER) (test code = [facility], [facility]) 47743: Electric Motor Tester Assembler/Techni bobby ID = [id number] for RYNE HN, WILLIAM POCT-GLUCOSE [id number] 07:27:43 Test Item Value Reference Range Interpretation Comments POC-GLUCOSE METER 160 mg/dL 70-110 H : TESTED A T [facility] 6720 (BEAKER) (test code = [facility], [facility]) 67796: Electric Motor Tester Assembler/Techni bobby ID = [id number] for RYNE HN, WILLIAM POCT-GLUCOSE [id number] 21:54:32 Test Item Value Reference Range Interpretation Comments POC-GLUCOSE METER 138 mg/dL 70-110 H : TESTED A T [facility] 6720 (BEAKER) (test code = [facility], [facility]) 54583: Electric Motor Tester Assembler/Techni bobby ID = [id number] for Co rtez, Parris POCT-GLUCOSE [id number] 17:25:24 Test Item Value Reference Range Interpretation Comments POC-GLUCOSE METER 164 mg/dL 70-110 H : TESTED A T [facility] 6720 (BEAKER) (test code = [facility], [facility]) 29969: Electric Motor Tester Assembler/Techni bobby ID = [id number] for RYNE HN, WILLIAM POCT-GLUCOSE [id number] 12:06:06 Test Item Value Reference Range Interpretation Comments POC-GLUCOSE METER 209 mg/dL 70-110 H : TESTED A T [facility] 6720 (BEAKER) (test code = [facility] [place], 1538) 12340: Electric Motor Tester Assembler/Techni bobby ID = [id number] for WILLIAM SOL Tissue [id number] 10:32:55 Test Item Value Reference Range Interpretation Comments Case Report (test code Surgical Pathology = 104) Report Case: [id number] Authorizing Provider: Jorge Hinton MD Collected: 02/01/2021 01:43 PM Ordering Location: [place] [address] ICU Received: 02/01/2021 02:55 PM Pathologist: Jacob Trujillo MD Specimen: Pleura, LEFT VISCERAL PLEURA ADDENDUM (test code = [id number] 3381) Snl1xxx3XwrXWacKTpCXqd iHZbcbTrpw84zBH5gK03RB 1yGCQdUzV2TNEabqE9Spb1 GJWoYWIwgUXtF103p5kmg1 afraOsnFX3tZwzWJNzbnnj PwH3SLfqKRGcmkazSLh6NE xnBSVsjHQ1SOIqfTYcK6Iq MKZiLP9epbc8YVY5JNafBV NqCtX5CIObcMZpCLJizYkb TMfnq728CXG1JuIpQZRhnz CivWyfvA4fLoLdMZVLaJDj dFUfGYX6HQbuaeCfm4XtZy EeL4ThOZ1gN0QjdRYrzoFg F76JSKIDPULeZLDmmfUquz 1qALHenfWxlR1zrnJRKVNg cmUgbmVnYXRpdmUuIENvcn KetUH5cD0gOGepvXdagSah bg6arB6oz3wjE8XrXFU8uW HyAGXskOLsirPck88iXY8d ZWQuIFxwYXJ9 DIAGNOSIS (test code = q5wdfACsFTDao4jyTSHeyT 3220) FuZzEwMzNcZnRuYmpcdWMx IHtccnRmMVxlcGljOTYwMV lqvkTsXJPcmDShW2Triybk AWnvWZ4eIH6jeQbwzPEwqT OkDRIeZeByo2huu994bLHw j1slLUZPkunouWs8lQvdE3 2ne0Q9LlhdC70wuMOpPGX5 TIRsNYPobCTmWJDoYME8DY XkxGLoD3qzCJXtGP7ljixb HFpkLTtsSDJppSD6ZFBjjO XuR1UgHKRnIOfzXSClpcp7 IoFhJv8fdGDvoFhrZGdsOP LtXOAgGZzsGRGuNwFxMJ4c TEVGVCBWSVNDRVJBTCBQTE YZWfFvRBDMT76HBKmCKMHK L724AZLkelDYPWWNS4GDFs VHXAITHoNUBZIGU5ZIYD1f lXVbFJESMVOELJaqK8WBPM 7GBFQXZwZYHX1UVJtlF3WI LO6JO61ERDZHJvBPBhwiQY FEREVORFVNIFRPIEZPTExP Hz1hJZUpdv16KZC0NxAvq3 R5OTN2YOOfSIZah2imDUVi bGFuZzEwMzNcZnRuYmpcdW RxUBZwWuPvf2gon559bBNt l4weOFShToM7mJCgLOYekG IvA951YYIaTLqgd7tqp8Jj JLDvnOMem8Z0GXAKmpknrV w3iVznC02qm3B3OsolF0ig HETvVVZhL1IwXG1mHODhYn c1UEP0UKI6NPJeKUBsA7Mf NT5oDRYxoGXlTIw7c0uzgW uwFSNmLFQ4z1xgNLizfyMs GS9sue2buKt2l9ljcwQsQM HqUDWwoOEFQTJkL1JylQae Dl0rxOa5oXudVhnzIIJ7Yf h7DS0ohz71soa9hWfdLHRb aydoYjA9UEhaMLEhvsrcWW u6SGkoCJIkbWP9ALRzfNQl R3LlIPJfBQ8kmij2SIO5XK vtIZQfYjS0CAPhfJSuTBTl xZxbMFyma816YMQ2VdMiFY 8xD2Roa4Y5vW7klJYxODPr jJWnJdGxJPFzhg2qpXLcWW zsz3ZqZKX9olT0hWVrcOLy FHEpNhG7OCxpWM5nrm15EU NuMUJ9th9qxACwoSjddhSv mCQtLPyeY0XlYVDuy614NM QjQ7ClKVCds8R0iqDpLfIl LRXwfQF7pqX9MMLxRV7fcv esa3odDDfmGKseRUTxurW9 zrZ3SHIhaGZuM2CnwM4sNM TfEK7bdhxxm0hiSUD2WDfs NZVjYMN9OrEpSTFni6Wvss g1YaZhi3CnoAOtKAsbM11r k876UGYdwzTuP8ozfPXeke gsnZDesadvXNidchV9XXCj SNqmhhccQKMzQLjpN5zpWc FqGQAvnVmoFZrul8LbJUAf MBIzCwQwbCExMAKrXbd2AY RueVKiJKXlDbYlV6rvyxjm PpTJDSMgc5gdS4vpeGFJcI UjY0BePBkbadRkZTslEMlj CnAwUHHeFX74TJI9SAWmxv 19 CPT Code(s) (test code k9cxxGDrUQJhdDZ4CzAyPP = 4659) Tnq0wzi5YfrGDwhOAyPTtd nCMzfkBkms39fAR5yH44OK 5iKNTdPjY2GJAzdiV5Trt4 VEFdNKTrlFEsU181g6zbz8 zznqScpLT3eSqoIWLkhxek FuG7NItfGBUlfaaqQUp6PU goJSRpoQI1CSFwkETxZ8Cw FWAeXM8qkhs0XUJ3WUmvVF WbSaM4ZABsjLWrIJUwkXud KEidz456ZZG1DbXjJVQuck AobFdkmK3zRlIyGTC6DCTt NCwgODgzMTJYMlxwYXJ9 CLINICAL HISTORY (test q5zvxIIoBFMzuEC6YnAuBL code = 3356) Iru4yvk1WmjIDixQGbFFei dUKqovUuxd87jWJ0kB64HQ 4fSDFtIxD5KWFeeqP2Efj1 ZRIcVUXvhDWvK766y8gqd3 acdxFwzMG3xGhzUPXhvfvs VuX9CZikWSAnknxeIQa5OU szACDsgTC7SAKogIPxZ8Dm RIYkLO4wybq3AGK6FOmgAV SmQvI8CRDenXCpKUCekGmf USdjo883DRD7WyWtMAZlbd MsfGevqU4kWkLeLKILoIF6 LR4xNKGjej4= SPECIMEN SOURCE (test o7speVDtYEUolEL4KgAyFB code = 3377) Gky0yzr0RtoRFmtPHdDTsn oBXkurMbmo68iQN2pO14AF 3dDGEvVpV8FQMytbW3Elo4 XLXvUIIbdHYfD858y5knw2 pmkuRxlWU7sJylBDEcvggm NrM0RJkiTLFxxbihNLf5JH yrMMJnuIZ9PVYdtVBjX3Xh PPLzTC7dcge8BCZ9HIcuDW YwHrY9GTNueALvTMScfWoj ITfuj190SDH0EhVrYHSjjr BpqZyglY8mNoEvWOGKpJG3 hbEhIWJoDJM0PBTbr9Ainc FsXHBhcn0= GROSS DESCRIPTION (test w4dzvMCrHRJikPIsGxFfKI code = 3366) IwJIMba1qpICSlfBMzMtEx MzNcZnRuYmpcdWMxXGRlZm Xmz7fxe238qCFop1vbJMMb QtI5dIIpPHBeqAFyW284b9 sdz0umltBisPP0QNVkASC1 FQhlrzCnekQ4GMyvcAVxPf J3MHuchaRkCNekhtZdtnHu Ehp7IFTaS534BQE9cXxdn6 ewFTA1OKCcIRBdUjGaBa7x yYNjW504PDFqKYRYVBGcmE o3OSYbmwMplyXirROPx327 T876v8zaAGScxiOufKzGtb utc2uwQ590IPYwlYYgtkUt AlJgFRFvfMQihFU2FRUeMF 4cbzhkOtEyWF6nckqgJeBa BH4zitj6RfFtFP7nvwhrTp WrZWtfIXEdwjjuARJmy2Zt kpppMF9iD7Oqa0R2aV5lbF YzSGPwmKRoYjRiGLUnht5m jMCuODnvx2LfVBW6xhP9nL OkaGOtPSFwDQ96Mpazv5Cv GnpaMDG1LEFpgzYdi6Lxq1 awVsLflaVcI8hpL0KnGRYa CUOvSVUkMjRsufUoi4Rvc3 YkdSQecZq0n3kwUISxJZFk zSdqf2ckRHZ7OXYcP6U3jD Bnb7udRShaPSTsiCM4pkab YHatORLbqtQ4qjgjJGgmTS JtaRH8ltdxMXhfVCAcFeP6 agaiZAefIHViEAD5QRrnr5 54LCJ2PRdnDjuhCXykJOOd bmNvbnRccGduZGVjXHBsYW luXHBsYWluXGYwXGZzMjRc rDcngBkjsW4kSeSqFrRgMW xkTM2aKDVtZ5gphLCfYXSm QGRuH9anLbWewS3ebOkzVW qriaLhJPTwEIVfI8CdjoWi IGZyZXNoIGxhYmVsZWQgd2 b8uPE8xAIfhUY5lGPksPgb JwNnNB1qaYVsCJ1iWSuwGF fbjtIgk1PqLF00wNPkkbTl pmKxBjjbCqRewowyR4TeGW wgcGxldXJhIiBpcyBhIDEu FQA9XSOiBOB7VWHsEOBurU I6GUioy8nnj3avoXUwauYn qt94wTHjr08doNH6kYUtqJ UgdGhhdCBpcyBzZXJpYWxs bECvKIZ1dL3aGKMzWC6fJR MyaDotXTk4QXS3Mx0trLUg CBQbtdVKBR0wzNGyVNWkup UEoQOgz1MnWMimAFLfOUYB VFKhXTTQDBhHI3VQFUDtRZ Bhcn0= MICROSCOPIC DESCRIPTION y1jjcNClHWYnxMT9SlDvIB (test code = 3371) Eod6ltt2ZjtOUcvVGdDIsc iUDlsoArdz46hZO8oZ94KS 0qNFGuHzU0JFSdwgB1Jru8 WPEsQSUnsNEpP383j0iof7 yrxsFfwQL8jRkuXRJjmiip XcL3EXyeMQKvkrwjEBu8SZ etISWtdAI5YXWoiAUwZ4Xr SWSzDE5cntw0BVC9UGpsPB HjRrD1CCYmtZFmILQhxPjw EEdgg499AGK0RfVaHFIbef TgoAnulK9uJfYeLLACORFg u5ShBVAsRPRajzkaGLZfKJ Bhcn0= SPECIAL STUDIES (test v2bglKZcSPIxyME6HaXjXT code = 3376) Seg1qoi9VcaRLisUOoJOwo aRSesgAbnq54gUR7cJ39CP 9hIWUlAwT1OHBgjlA7Nsp3 TNZkVGOjrMDjW205CGZdFM ZyfXdzrdr2lY27BLIiwZ2z dGJsIDtccmVkMFxncmVlbj JfUyx0ZSO7zQnoFVDabdjf OxH5POvuPASlzwehYMz7JH rgCGKgwUD6ZMAgqPAtC8Nn BJBuYD9unqq7LWY7VDdbLB MyRpO1CCLbuDYcFGOnhKdr HFlfx800HQI9HyEiQAHbvm GmvXrqpD6iWhGmIgZvJhdi ZjEgVGhlIGludGVycHJldG I1sH6jNK7hKRXxyMWxH5Dl IPUaygFvjLIvFKI2zZAowY FnEQ6iVEcclBOau2xnt7Me N7zdnHzueUD3TH8wMFBgYL SwJStzl1OugA3rSsecYGMh O6QfJYVIZ8RYBSWfZHCTPS UqYZRGK1pqDMSmgVIdFDva AfRbU39xbBTfsYFYjWmbQU QqHRqmeTyyWTL7XKPOdj2b v3KeJLBvvm15ocXln9DldW f7SGAqf259wv6tmnA9ESUu HJZ8JSd0THHjVZYinY8gAl I7rRFySOWwSEI3CGN2JVLa d8R7VX2rTGArHPTvNMFnvo Wrb2xxr9oxDLTiDBU8aeRv cF0dW0PnCDJwx8UdsXjhGC BhdGllbnRzIHNhbXBsZSBz iE15YUGeuSNxuGMxOEOnYM L0WNnxtX1wYnSGbtRmuk6k tCWuv8YtjId2WSXzkbGdsi NeGSYdmyXdY46rcZQyjPPd s3tpshGtutXtgUIngGLlDD BxYHT3IVk9XIKbZTofYVVh JHtyUSQlKP5zgD2onVcloT 6dyMSvhHR6zhuebPWkdT4a J9KdHEAgr7Eraepzo6KtWZ TtixWsmk3lQYWbeTDJCTdj z0KbB7LoSAc7c9WylFpuPW hrCEc6QlHcPEAcxEAzbLEC SB82VVIsOEYvrCyeoB3lrE HTAZDesyS9o4C1NPldDMVx MNn4BLkasbUiQRTzgS7vPE DoJU2pNCw0wcNaYCOif4Yx LA7yFJQkpOOzTQK6JWLxv3 ZsN6Uth3TsDHFmVRDlrb1b faMoWpXXxBMyFEWcrv26OR RoHC7lI7yvSXDgLMXkodAi bVNgg4MjYTVvvCE1wVFdSZ 4MUfIQq99kSRXoLHEUzuXe NHFcvPxinKI8uiS7uE0sTp BUaGUgRkRBIGhhcyBkZXRl fe9pkyKlZYFpBMRym9PhoP ZwxIFrvjTvK4Pvt9JiERXh ab77HOizqOHaww27IT2eL1 Zqt6NkxQ5uYMqiPJTxx9Ge cFXukEAiSIKty4DkH2zhhy nwHNuceOPmgN0rKOMoWXs3 TNReh3VjSUGmx9OhHeQcst YzRNPiNZDxZWYadT86KNM8 zHkguPhqtiOnEZ0mXFTfrl ZpPYPpWSJnwW5uKRghoiUj SQMtrnR4u7N5KDkpHFZtbj SpOvsqDEC7usPxyhW2oDUx B7razavkKMiqUNPoy0WdwL 9jxFGKyAHha6IwaRBcwLCM dPLqUF5pdcKiGC3zXEP3JO ggKENMSUEtODgpIGFzIHF1 COriSxhtYTC3hqIeTPGrc3 NfRCmaP7diG69oyTyhgQp4 eSBjbGluaWNhbCBsYWJvcm M5t8T6VOYil7DewoyuSDZm cn0= Gross assessment was [facility] performed at ([facility], = 8067) Department of Pathology, [address] [place] [address], Technical component was [facility] performed at ([facility], = 7780) Department of Pathology, [address] [place] [address], Professional component [facility] was performed at ([facility], code = 2777) Department of Pathology, [address] [place] [address], [facility] [id number] 10:32:55Surgical Pathology Report Case: [id number] Authorizing Provider: Jorge Hinton MD Collected: 02/01/2021 01:43 PM Ordering Location: [place] [address] ICU Received: 02/01/2021 02:55 PM Pathologist: Jacob [...] TO FOLLOW. Signing Pathologist Direct Phone Line: [phone] signed by Jacob Trujillo MD on 02/15/2021 at 10:05 [id number], [id number], left visceralA. Received fresh labeled with the patient's name, medical record number and "left visceral pleura" is a 1.8 x 0.8 x 0.5 cm yellow-white necrotic soft tissue that is serially sectioned and entirely submitted in A1.WADE Dudley, GABRIEL (ASCP)cmPerformed.The interpretation of this case included the use of immunohistochemistry or special stains.BLOCK A1- GMS, PASControl Slides Examined: In-house known positive controls were evaluated along with the test tissue. These control slides run alongside of the patients sample show appropriate staining. Internal positive and negative controls when available are evaluated Immunohistochemistry technical testing was performed at [facility], Pathology Laboratory where it was developed and [...] qualified to perform high complexity clinical laboratory testing.[facility], Department of Pathology, [address] [place] [address], [facility], Department [facility], [address] [place] [address], [facility], Department [facility], [address] [place] [address], FNEA-GLUCOSE [id number] 08:01:15 Test Item Value Reference Range Interpretation Comments POC-GLUCOSE METER 135 mg/dL 70-110 H : TESTED A T [facility] 6720 (BEAKER) (test code = DIONI Mccullough [facility], 1538) 11380: Electric Motor Tester Assembler/Techni bobby ID = [id number] for WILLIAM SOL BASIC METABOLIC [id number] 05:50:34 Test Item Value Reference Range Interpretation [...] mg/dL 8.4-10.2 (test code = 697) EGFR (BREANNA) (test 126 mL/min/1.73 ESTIM ATED GFR IS code = 1092) sq m NOT ACCURATE CREATININE CLEARANCE IN PREDICTING GLOMERULAR FILTRATION RATE . ESTIMATED GFR I S NOT APPLICABLE FOR DIALYSIS PATIEN TS. Electric Motor Tester Assembler ID - CRISTOFER [id number] 05:50:34 Test Item Value Reference Range Interpretation Comments MAGNESIUM (BREANNA) (test code = 1.8 mg/dL 1.6-2.6 627) Electric Motor Tester Assembler ID - CRISTOFER MSARS-COV2/RT-PCR ([facility])2021-02-16 01:01:04 Test Item Value Reference Range Interpretation Comments SARS-COV2/RT-PCR Negative Negative The SARS-Co V-2 target (test code = nucleic acids a re not 0206043) detected in thi s specimen. Negative result [...] revoked sooner. Fact Sheet for Healthcare Providers: https://www.cepheid.co m/Documents/Xpert%20Xpress%20SARS%20CoV-2/Fact%20Sheets/095-4456%62SWBT-VNR-7%20 HEALTHCARE%20PROVIDERS%20FACT%20SHEET.pdf Fact Sheet for Healthcare Patients: https://www.[employer].Futurederm/Documents/Xpert%20Xp ress%20SARS%20CoV-2/Fact%20Sheets/302-0686%07VQQU-STS-8%20PATIENT%20FACT%20SHEET .pdfPOCT-GLUCOSE [id number] 21:08:07 Test Item Value Reference Range Interpretation Comments POC-GLUCOSE METER 145 mg/dL 70-110 H : TESTED A T [facility] 6720 (BEAKER) (test code = [facility], [facility]8) 82594: Electric Motor Tester Assembler/Techni bobby ID = [id number] for Co rtez, Parris POCT-GLUCOSE [id number] 17:19:16 Test Item Value Reference Range Interpretation Comments POC-GLUCOSE METER 123 mg/dL 70-110 H : TESTED A T [facility] 6720 (BEAKER) (test code = [facility], [facility]8) 92062: Electric Motor Tester Assembler/Techni bobby ID = [id number] for Ba rrera, Ai POCT-GLUCOSE [id number] 12:22:04 Test Item Value Reference Range Interpretation Comments POC-GLUCOSE METER 167 mg/dL 70-110 H : TESTED A T [facility] 6720 (BEAKER) (test code = [facility], 1538) 65689: Electric Motor Tester Assembler/Techni bobby ID = [id number] for Ba rrera, Ai POCT-GLUCOSE [id number] 07:36:25 Test Item Value Reference Range Interpretation Comments POC-GLUCOSE METER 141 mg/dL 70-110 H : TESTED A T [facility] 6720 (BEAKER) (test code = [facility], [facility]) 38340: Electric Motor Tester Assembler/Techni bobby ID = [id number] for Ba rrera, Ai BASIC METABOLIC [id number] 04:08:49 Test Item Value Reference Range Interpretation [...] S NOT APPLICABLE FOR DIALYSIS PATIEN TS. Electric Motor Tester Assembler ID - LIZET [id number] 04:08:49 Test Item Value Reference Range Interpretation Comments MAGNESIUM (BEAKER) (test code = 1.7 mg/dL 1.6-2.6 627) Electric Motor Tester Assembler ID - LIZET WPOCT-GLUCOSE [id number] 20:45:39 Test Item Value Reference Range Interpretation Comments POC-GLUCOSE METER 141 mg/dL 70-110 H : TESTED A T [facility] 6720 (BEAKER) (test code = [facility], 1538) 19278: Electric Motor Tester Assembler/Techni bobby ID = [id number] for PI TTS, CRISTINA POCT-GLUCOSE [id number] 17:21:22 Test Item Value Reference Range Interpretation Comments POC-GLUCOSE METER 202 mg/dL 70-110 H : TESTED A T [facility] 6720 (BEAKER) (test code = [facility], 1538) 78209: Electric Motor Tester Assembler/Techni bobby ID = [id number] for OR PHEY, MYNOR POCT-GLUCOSE [id number] 11:53:53 Test Item Value Reference Range Interpretation Comments POC-GLUCOSE METER 173 mg/dL 70-110 H : TESTED A T [facility] 6720 (BEAKER) (test code = [facility], 1538) 93639: Electric Motor Tester Assembler/Techni bobby ID = [id number] for OR PHEY, MYNOR POCT-GLUCOSE [id number] 07:52:01 Test Item Value Reference Range Interpretation Comments POC-GLUCOSE METER 121 mg/dL 70-110 H : TESTED A T [facility] 6720 (BEAKER) (test code = [facility], 1538) 70839: Electric Motor Tester Assembler/Techni bobby ID = [id number] for Michael COELHO BASIC METABOLIC [id number] 05:44:06 Test Item Value Reference Range Interpretation [...] S NOT APPLICABLE FOR DIALYSIS PATIEN TS. Electric Motor Tester Assembler ID - PIAYA [id number] 05:44:06 Test Item Value Reference Range Interpretation Comments MAGNESIUM (BEAKER) (test code = 1.8 mg/dL 1.6-2.6 627) Electric Motor Tester Assembler ID - PRIYAZEKE LPOCT-GLUCOSE [id number] 21:27:05 Test Item Value Reference Range Interpretation Comments POC-GLUCOSE METER 168 mg/dL 70-110 H : TESTED A T [facility] 6720 (BEAKER) (test code = [facility], 1538) 50582: Electric Motor Tester Assembler/Techni bobby ID = [id number] for Rip Pereira michoacano POCT-GLUCOSE [id number] 19:09:56 Test Item Value Reference Range Interpretation Comments POC-GLUCOSE METER 189 mg/dL 70-110 H : TESTED A T [facility] 6720 (BEAKER) (test code = [facility], 1538) 52451: Electric Motor Tester Assembler/Techni bobby ID = [id number] for MYNOR NOBLE POCT-GLUCOSE [id number] 12:46:35 Test Item Value Reference Range Interpretation Comments POC-GLUCOSE METER 178 mg/dL 70-110 H : TESTED A T [facility] 6720 (BEAKER) (test code = [facility], 1538) 88267: Electric Motor Tester Assembler/Techni bobby ID = [id number] for OR PHEY, MYNOR POCT-GLUCOSE [id number] 07:56:06 Test Item Value Reference Range Interpretation Comments POC-GLUCOSE METER 148 mg/dL 70-110 H : TESTED A T [facility] 6720 (BEAKER) (test code = [facility], 1538) 75945: Electric Motor Tester Assembler/Techni bobby ID = [id number] for OR PHEY, MYNOR B-TYPE NATRIURETIC FACTOR (BNP)2021-02-13 04:18:48 Test Item Value Reference Range Interpretation Comments B-TYPE NATRIURETIC PEPTIDE (BEAKER) 75 pg/mL 0-100 (test code = 700) Electric Motor Tester Assembler ID - CRISTOFER [id number] 04:16:09 Test Item Value Reference Range Interpretation Comments MAGNESIUM (BEAKER) (test code = 1.8 mg/dL 1.6-2.6 627) Electric Motor Tester Assembler ID - CRISTOFER MPOCT-GLUCOSE [id number] 23:41:35 Test Item Value Reference Range Interpretation Comments POC-GLUCOSE METER 204 mg/dL 70-110 H : TESTED A T [facility] 6720 (BEAKER) (test code = [facility], 1538) 87581: Electric Motor Tester Assembler/Techni bobby ID = [id number] for Veda Farr se BASIC METABOLIC [id number] 17:45:48 Test Item Value Reference Range Interpretation [...] S NOT APPLICABLE FOR DIALYSIS PATIEN TS. Electric Motor Tester Assembler ID - ADMINPOCT-GLUCOSE [id number] 17:34:52 Test Item Value Reference Range Interpretation Comments POC-GLUCOSE METER 222 mg/dL 70-110 H : TESTED A T [facility] 6720 (BEAKER) (test code = [facility], 1538) 64490: Electric Motor Tester Assembler/Techni bobby ID = [id number] for Ba rrera, Ai POCT-GLUCOSE [id number] 12:18:19 Test Item Value Reference Range Interpretation Comments POC-GLUCOSE METER 219 mg/dL 70-110 H : TESTED A T [facility] 6720 (BEAKER) (test code = [facility], 1538) 90331: Electric Motor Tester Assembler/Techni bobby ID = [id number] for Ba rrera, Ai POCT-GLUCOSE [id number] 07:50:12 Test Item Value Reference Range Interpretation Comments POC-GLUCOSE METER 137 mg/dL 70-110 H : TESTED A T [facility] 6720 (BEAKER) (test code = [facility], 1538) 16185: Electric Motor Tester Assembler/Techni bobby ID = [id number] for Ba rrera, Ai BASIC METABOLIC [id number] 03:56:33 Test Item Value Reference Range Interpretation [...] S NOT APPLICABLE FOR DIALYSIS PATIEN TS. Electric Motor Tester Assembler ID - CRISTOFER [id number] 03:56:33 Test Item Value Reference Range Interpretation Comments MAGNESIUM (BEAKER) (test code = 1.8 mg/dL 1.6-2.6 627) Electric Motor Tester Assembler ID - CRISTOFER MPOCT-GLUCOSE [id number] 20:51:53 Test Item Value Reference Range Interpretation Comments POC-GLUCOSE METER 144 mg/dL 70-110 H : TESTED A T [facility] 6720 (BEAKER) (test code = [facility], 1538) 47828: Electric Motor Tester Assembler/Techni bobby ID = [id number] for Re yes, Sairy POCT-GLUCOSE [id number] 17:33:30 Test Item Value Reference Range Interpretation Comments POC-GLUCOSE METER 201 mg/dL 70-110 H : TESTED A T [facility] 6720 (BEAKER) (test code = [facility], 1538) 53475: Electric Motor Tester Assembler/Techni bobby ID = [id number] for Ba rrera, Ai POCT-GLUCOSE [id number] 12:44:50 Test Item Value Reference Range Interpretation Comments POC-GLUCOSE METER 191 mg/dL 70-110 H : TESTED A T [facility] 6720 (BEAKER) (test code = [facility], 1538) 05304: Electric Motor Tester Assembler/Techni bobby ID = [id number] for Ba rrera, Ai POCT-GLUCOSE [id number] 08:02:05 Test Item Value Reference Range Interpretation Comments POC-GLUCOSE METER 138 mg/dL 70-110 H : TESTED A T [facility] 6720 (BEAKER) (test code = [facility], 1538) 47328: Electric Motor Tester Assembler/Techni bobby ID = [id number] for Ba rrera, Ai [id number] 08:01:45 Test Item Value Reference Range Interpretation Comments MAGNESIUM (BEAKER) (test code = 1.5 mg/dL 1.6-2.6 L 627) Electric Motor Tester Assembler ID - PIAYA LCBC with platelet count + automated [id number] 07:37:57 Test Item Value Reference Range Interpretation Comments WBC (test code = 6690-2) 9.3 See_Comment [A utomated message] The system Bleachers generated this result transmitted ref erence range: 3.5 - 10 .5 K/L. The refe rence range was not u sed to interpret this result as normal/abnor mal. RBC (test code = 789-8) 2.45 See_Comment L [Au tomated message] The system Bleachers generated this result transmitted ref erence range: 4.63 - 6 .08 M/L. The refe rence range was not u sed to interpret this result as normal/abnor mal. MCHC (test code = 786-4) 31.8 See_Comment L [A utomated message] The system Bleachers generated this result transmitted ref erence range: [...] See_Comment [Aut omated message] 777-3) The system Bleachers generated this result transmitted ref erence range: 150 - 45 0 K/CU MM. The referen ce range was not u sed to interpret this result as normal/abnor mal. MPV (test code = 10.7 fL 9.4-12.4 23613-1) nRBC (test code = 413) 0 See_Comment [Aut omated message] The system Bleachers generated this result transmitted ref erence range: [...] H [Aut omated message] 670) The system Bleachers generated this result transmitted ref erence range: 1.78 - 5 .38 K/L. The refe rence range was not u sed to interpret this result as normal/abnor mal. # Lymphs (test code = 1.91 See_Comment [Auto mated message] 414) The system Bleachers generated this result transmitted ref erence range: 1.32 - 3 .57 K/L. The refe rence range was not u sed to interpret this result as normal/abnor mal. # Monos (test code = 0.75 See_Comment [Autom ated message] 415) The system Bleachers generated this result transmitted ref erence range: 0.30 - 0 .82 K/L. The refe rence range was not u sed to interpret this result as normal/abnor mal. # Eos (test code = 416) 0.22 See_Comment [Au tomated message] The system Bleachers generated this result transmitted ref erence range: 0.04 - 0 .54 K/L. The refe rence range was not u sed to interpret this result as normal/abnor mal. # Baso (test code = 417) 0.05 See_Comment [A utomated message] The system Bleachers generated this result transmitted ref erence range: 0.01 - 0 .08 K/L. The refe rence range was not u sed to interpret this result as normal/abnor mal. Immature 1 % 0-1 Granulocytes-Relative (test code = 2801) Lab Interpretation (test Abnormal code = 78754-4) [facility] W/PLT COUNT & AUTO [id number] 07:37:57 Test Item Value Reference Range Interpretation [...] PERCENT (BEAKER) (test code = 2801) POCT-GLUCOSE [id number] 20:28:51 Test Item Value Reference Range Interpretation Comments POC-GLUCOSE METER 148 mg/dL 70-110 H : TESTED A T [facility] 6720 (BEAKER) (test code = DIONI Mccullough [facility], 1538) 20281: Electric Motor Tester Assembler/Techni bobby ID = [id number] for Co Parris bailey BASIC METABOLIC [id number] 18:02:37 Test Item Value Reference Range Interpretation [...] S NOT APPLICABLE FOR DIALYSIS PATIEN TS. Electric Motor Tester Assembler ID - CRISTOFER ANTHONY, CHEST, 1 VIEW, NON [id number] 17:07:00Reason for exam:->post pull chest tubesShould this be performed at the bedside?->Yes [facility] 1960 Sex: MFINAL REPORT TECHNIQUE: One [...] Victoria Verified Date/Time: 02/10/2021 17:07:21 Reading Location: [facility] B1 C013Y CT Body Reading Room POCT-GLUCOSE [id number] 17:02:34 Test Item Value Reference Range Interpretation Comments POC-GLUCOSE METER 135 mg/dL 70-110 H : TESTED A T [facility] 6720 (BEAKER) (test code = [facility], 1538) 51246: Electric Motor Tester Assembler/Techni bobby ID = [id number] for OR NEHA HOOKERIS POCT-GLUCOSE [id number] 12:09:09 Test Item Value Reference Range Interpretation Comments POC-GLUCOSE METER 118 mg/dL 70-110 H : TESTED A T [facility] 6720 (BEAKER) (test code = [facility] PATHEOS [facility], 1538) 59815: Electric Motor Tester Assembler/Techni bobby ID = [id number] for OR MYNOR HOOKER [id number] 09:05:09 Test Item Value Reference Range Interpretation Comments MAGNESIUM (BEAKER) (test code = 1.6 mg/dL 1.6-2.6 627) Electric Motor Tester Assembler ID - CRISTOFER MComprehensive metabolic [id number] 09:05:08 Test Item Value Reference Range Interpretation Comments Protein, Total (test 6.2 See_Comment [Autom ated code = 2885-2) message] The system which generated this result transmit tuyet reference range : 6.0 - 8.3 gm/dL . The reference range was not u sed to interpret th is result as normal/abnormal . Albumin (test code = 2.5 g/dL 3.5-5.0 L 47469-2) Alkaline Phosphatase 47 U/L 40-150 (test code = 6768-6) Total Bilirubin (test 0.4 mg/dL 0.2-1.2 code = 1974-2) Sodium (test code = 141 meq/L 978-526 7967-2) Potassium (test code 3.1 meq/L 3.5-5.1 L = 2823-3) Chloride (test code = 100 meq/L 98-107 5-0) CO2 (test code = 35 meq/L 22-29 H 2027-9) BUN (test code = 8 mg/dL 7-21 3094-0) Creatinine (test code 0.69 mg/dL 0.57-1.25 = 2160-0) Glucose (test code = 173 mg/dL 70-105 H 2345-7) Calcium (test code = 9.4 mg/dL 8.4-10.2 52249-0) AST (test code = 46 U/L 5-34 H 1920-8) ALT (test code = 33 U/L 6-55 1742-6) EGFR (test code = 116 mL/min/1.73 [place] [address]-0) NOT ACCURATE CREATININE CLEARANCE IN PREDICTING GLOMERULAR FILTRATION RATE . ESTIMATED GFR I S NOT APPLICABLE FOR DIALYSIS PATIEN TS. RUTHIE (test code = RUTHIE) Electric Motor Tester Assembler ID - CRISTOFER Vázquez Lab Interpretation Abnormal (test code = 27318-5) [facility] Center[facility]PRE[facility]ENSIVE [facility]OL[facility] [id number] 09:05:08 Test Item Value Reference Range Interpretation [...] S NOT APPLICABLE FOR DIALYSIS PATIEN TS. Electric Motor Tester Assembler ID - CRISTOFER MRAD, CHEST, 1 VIEW, NON [id number] 07:39:00Reason for exam:->post opShould this be performed at the bedside?->Yes [facility] 1960 Sex: MFINAL REPORT EXAM/TECHNIQUE: Single view frontal radiograph of the chest. INDICATION: Postoperative. COMPARISON: 02/09/2021 FINDINGS: Devices/Objects: Stable. Lungs: Similar left pleural effusion. No visible pneumothorax. Heart/Mediastinum: Similar cardiomegaly and interstitial thickening. Osseous: No acute osseous process. No suspicious osseous lesion. Upper abdomen: Unremarkable. Impression: No new cardiopulmonary process. Signed: Mario Stubbseport Verified Date/Time: 02/10/2021 07:39:46 POCT-GLUCOSE [id number] 07:33:20 Test Item Value Reference Range Interpretation Comments POC-GLUCOSE METER 161 mg/dL 70-110 H : TESTED A T [facility] 6720 (BEAKER) (test code = [facility], 1538) 61979: Electric Motor Tester Assembler/Techni bobby ID = [id number] for OR MYNOR HOOKER POCT-GLUCOSE [id number] 02:16:05 Test Item Value Reference Range Interpretation Comments POC-GLUCOSE METER 77 mg/dL 70-110 : TESTED A T [facility] 6720 (BEAKER) (test code = [facility], 1538) 53760: Electric Motor Tester Assembler/Techni bobby ID = [id number] for KOREY RUSSELLGIO POCT-GLUCOSE [id number] 01:53:35 Test Item Value Reference Range Interpretation Comments POC-GLUCOSE METER 57 mg/dL 70-110 L : TESTED A T [facility] 6720 (BEAKER) (test code = [facility], 1538) 40149: Electric Motor Tester Assembler/Techni bobby ID = [id number] for PRUDENCE WYNN, VICKY POCT-GLUCOSE [id number] 20:43:37 Test Item Value Reference Range Interpretation Comments POC-GLUCOSE METER 103 mg/dL 70-110 : TESTED A T [facility] 6720 (BEAKER) (test code = [facility], 1538) 31310: Electric Motor Tester Assembler/Techni bobby ID = [id number] for TIANNA TINOCO, VICKY BASIC METABOLIC [id number] 18:23:02 Test Item Value Reference Range Interpretation [...] 358) GLUCOSE RANDOM 154 mg/dL 70-105 H (BREANNA) (test code = 652) CALCIUM (MORROAKER) 9.6 mg/dL 8.4-10.2 (test code = 697) EGFR (MORROAKER) (test 107 mL/min/1.73 ESTIM ATED GFR IS code = 1092) sq m NOT ACCURATE CREATININE CLEARANCE IN PREDICTING GLOMERULAR FILTRATION RATE . ESTIMATED GFR I S NOT APPLICABLE FOR DIALYSIS PATIEN TS. Electric Motor Tester Assembler ID - DBPOCT-GLUCOSE [id number] 17:25:11 Test Item Value Reference Range Interpretation Comments POC-GLUCOSE METER 145 mg/dL 70-110 H : TESTED A T [facility] 6720 (BREANNA) (test code = [place] [place], 1538) 21658: Electric Motor Tester Assembler/Techni bobby ID = [id number] for OR MYNOR HOOKER CT, CHEST, WITHOUT [id number] 13:22:00Unlisted Reason for Exam - Click Yes and Enter Reason Below->YesUnlisted Reason for Exam->empyema s/p decortication, eval for residual collections [facility] : 1960 Sex: MFINAL REPORT TECHNIQUE: CT [...] Victoria Verified Date/Time: 02/09/2021 13:22:14 Reading Location: [address] Body Reading Room POCT-GLUCOSE METER 2021-02-09 12:43:52 Test Item Value Reference Range Interpretation Comments POC-GLUCOSE METER 158 mg/dL 70-110 H : TESTED A T [facility] 6720 (BEAKER) (test code = DIONI [facility], 1538) 54169: Electric Motor Tester Assembler/Techni bobby ID = [id number] for OR FELIPEY MYNOR RAD, CHEST, 1 VIEW, NON [id number] 11:16:00Reason for exam:->s/p chest tubes placementShould this be performed at the bedside?->Yes [facility] : 1960 Sex: MFINAL REPORT TECHNIQUE: One [...] Victoria Verified Date/Time: 02/09/2021 11:16:23 Reading Location: [address] Body Reading Room POCT-GLUCOSE METER 2021-02-09 08:14:21 Test Item Value Reference Range Interpretation Comments POC-GLUCOSE METER 113 mg/dL 70-110 H : TESTED A T [facility] 6720 (BEAKER) (test code = [place] [place], 1538) 07761: Electric Motor Tester Assembler/Techni bobby ID = [id number] for OR MYNOR HOOKER SARS-COV2/RT-PCR ([facility])2021-02-09 07:43:34 Test Item Value Reference Range Interpretation Comments SARS-COV2/RT-PCR Negative Negative The SARS-Co V-2 target (test code = nucleic acids a re not 8945775) detected in thi s specimen. Negative result [...] revoked sooner. Fact Sheet for Healthcare Providers: https://www.Teikon m/Documents/Xpert%20Xpress%20SARS%20CoV-2/Fact%20Sheets/302-5592%67VECV-EEB-2%20 HEALTHCARE%20PROVIDERS%20FACT%20SHEET.pdf Fact Sheet for Healthcare Patients: https://www.Prezma/Documents/Xpert%20Xp ress%20SARS%20CoV-2/Fact%20Sheets/302-8641%80KYEU-FGJ-0%20PATIENT%20FACT%20SHEET .pdfCOMPREHENSIVE METABOLIC [id number] 07:01:43 Test Item Value Reference Range Interpretation [...] S NOT APPLICABLE FOR DIALYSIS PATIEN TS. Electric Motor Tester Assembler ID - REANNA [id number] 07:01:43 Test Item Value Reference Range Interpretation Comments MAGNESIUM (BEAKER) (test code = 1.7 mg/dL 1.6-2.6 627) Electric Motor Tester Assembler ID - REANNA LCBC (Hemogram only)2021-02-09 06:39:18 Test Item Value Reference Range Interpretation Comments WBC (test code = 6690-2) 9.7 See_Comment [A utomated message] The system Bleachers generated this result transmitted ref erence range: 3.5 - 10 .5 K/L. The refe rence range was not u sed to interpret this result as normal/abnor mal. RBC (test code = 789-8) 2.48 See_Comment L [Au tomated message] The system Bleachers generated this result transmitted ref erence range: 4.63 - 6 .08 M/L. The refe rence range was not u sed to interpret this result as normal/abnor mal. MCHC (test code = 786-4) 31.4 See_Comment L [A utomated message] The system Bleachers generated this result transmitted ref erence range: [...] See_Comment [Aut omated message] 777-3) The system Bleachers generated this result transmitted ref erence range: 150 - 45 0 K/CU MM. The referen ce range was not u sed to interpret this result as normal/abnor mal. MPV (test code = 10.8 fL 9.4-12.4 56942-7) nRBC (test code = 413) 0 See_Comment [Aut omated message] The system Bleachers generated this result transmitted ref erence range: 0 - 0 /1 00 WBC. The refere nce range was not u sed to interpret this result as normal/abnor mal. Lab Interpretation (test Abnormal code = 33785-0) [facility] (HEMOGRAM ONLY)2021-02-09 06:39:18 Test Item Value Reference [...] (BEAKER) (test code = 413) pH, body [id number] 04:08:04 Test Item Value Reference Range Interpretation Comments pH, Body Fluid 7.2 (test code = 2748-2) PH FLUID TYPE Body fluid Reference (test code = range:Reference 90343-9) ranges have not been established on thistype of flu id for this test. RUTHIE (test code Performing Lab *EMBER = RUTHIE) [employer]/Irene Wiggins [address] [place] [address] Almita Payton MD, PhD [facility] CenterPO[facility] [id number] 20:45:01 Test Item Value Reference Range Interpretation Comments POC-GLUCOSE METER 125 mg/dL 70-110 H : TESTED A T [facility] 6720 (BEAKER) (test code = [facility] PATHE[facility], 1538) 55815: Electric Motor Tester Assembler/Techni bobby ID = [id number] for RO EARNEST VICKY Blood Culture - Routine (Left Venipuncture)2021-02-08 19:01:04 Test Item Value Reference Range Interpretation Comments Result (test code = No growth in 5 days 6463-4) [facility] CenterBLOOD [id number] 19:01:04 Test Item Value Reference Range Interpretation Comments CULTURE (BEAKER) (test No growth in 5 days code = 1095) POCT-GLUCOSE [id number] 18:18:33 Test Item Value Reference Range Interpretation Comments POC-GLUCOSE METER 99 mg/dL 70-110 : TESTED A T [facility] 6720 (BEAKER) (test code = [facility], 1538) 52975: Electric Motor Tester Assembler/Techni bobby ID = [id number] for Mignon Lopez BASIC METABOLIC [id number] 17:26:47 Test Item Value Reference Range Interpretation [...] S NOT APPLICABLE FOR DIALYSIS PATIEN TS. Electric Motor Tester Assembler ID - DBPOCT-GLUCOSE [id number] 17:22:28 Test Item Value Reference Range Interpretation Comments POC-GLUCOSE METER 55 mg/dL 70-110 L : TESTED A T [facility] 6720 (BEAKER) (test code = [facility] Jamel [place], 1538) 73552: Electric Motor Tester Assembler/Techni bobby ID = [id number] for Jhon sherman Ai POCT-GLUCOSE [id number] 12:21:39 Test Item Value Reference Range Interpretation Comments POC-GLUCOSE METER 101 mg/dL 70-110 : TESTED A T [facility] 6720 (BEAKER) (test code = [facility] Jamel [facility], 1538) 44534: Electric Motor Tester Assembler/Techni bobby ID = [id number] for Ai Carpenter SARS-COV2/RT-PCR ([facility])2021-02-08 11:03:00 Test Item Value Reference Range Interpretation Comments SARS-COV2/RT-PCR (test code = Negative Negative 5329092) Negative result for this test determines that [...] of the Act.Testing was performed using t [employer] SARS-CoV-2 assay.Fact Sheet for Healthcare Providers:https://www.[employer].johnson/herminio/RT SARS-CoV-2 HCP Fact Sheet 51- 630312.pdfFact Sheet for Healthcare Patients:https://www.[employer].johnson/herminio/RT SARS-CoV-2 Patient Fact Sheet EN 51-444050F0.pdfPOCT-GLUCOSE [id number] 07:31:17 Test Item Value Reference Range Interpretation Comments POC-GLUCOSE METER 91 mg/dL 70-110 : TESTED A T [facility] 6720 (BEAKER) (test code = DIONI Mccull[place], 1538) 38024: Electric Motor Tester Assembler/Techni bobby ID = [id number] for Ai Hassan [id number] 05:55:54 Test Item Value Reference Range Interpretation Comments MAGNESIUM (BEAKER) (test code = 1.8 mg/dL 1.6-2.6 627) Electric Motor Tester Assembler ID - REANNA LCOMPREHENSIVE METABOLIC [id number] 05:55:53 Test Item Value Reference Range Interpretation [...] S NOT APPLICABLE FOR DIALYSIS PATIEN TS. Electric Motor Tester Assembler ID - REANNA LPOCT-GLUCOSE [id number] 21:49:43 Test Item Value Reference Range Interpretation Comments POC-GLUCOSE METER 104 mg/dL 70-110 : TESTED A T [facility] 6720 (BEAKER) (test code = [place], 1538) 69077: Electric Motor Tester Assembler/Techni bobby ID = [id number] for CRISTINA SHEIKH POCT-GLUCOSE [id number] 17:16:18 Test Item Value Reference Range Interpretation Comments POC-GLUCOSE METER 102 mg/dL 70-110 : TESTED A T [facility] 6720 (BEAKER) (test code = [facility] [place], 1538) 29407: Electric Motor Tester Assembler/Techni bobby ID = [id number] for Britta Carreon BASIC METABOLIC [id number] 15:59:05 Test Item Value Reference Range Interpretation [...] S NOT APPLICABLE FOR DIALYSIS PATIEN TS. Electric Motor Tester Assembler ID - BSBlood gas, [id number] 15:50:11 Test Item Value Reference Range Interpretation Comments pH, Ermias (test code = 7.43 7.32-7.42 H 2746-6) pCO2, Ermias (test code = 52 See_Comment H [Aut omated message] 225) The system whic h generated this result transmit tuyet reference range : 41 - 51 mm Hg. The reference range was not used to interpret this result as normal/abnormal . pO2, Ermias (test code = 50 See_Comment H [Auto mated message] 4815-2) The system whic h generated this result transmit tuyet reference range : 25 - 40 mm Hg. The reference range was not used to interpret this result as normal/abnormal . O2 Sat, Ermias (test code 85.3 % 40.0-70.0 H = 0921-0) HCO3, Ermias (test code = 33 mmol/L 21-29 H 62322-3) Base Excess, Ermias (test 7.3 mmol/L -2.0-3.0 H code = 1927-3) Patient Temperature 37.0 (test code = 8310-5) FIO2 (test code = 1819) 40 Lab Interpretation Abnormal (test code = 26188-5) [facility] Center[facility], [id number] 15:50:11 Test Item Value Reference Range Interpretation [...] code = 413) CT, DRAINAGE, CHEST TUBE [id number] 13:09:00With anesthesia Reason for exam:->left mediastinal fluid collection Anesthesia:->General [facility] 1960 Sex: MFINAL REPORT PROCEDURE: Chest tube placement Procedural PersonnelAttending physician(s): Bebeto Rice Pre-procedure diagnosis: Loculated left empyema status post surgical intervention with persistent loculation.Post-procedure diagnosis: SameIndication: Leukocytosis associated with pleural fluid collectionAdditional clinical history: None Complications: No immediate complications. IMPRESSION: Left-sided 10 Cymro chest tube placement, yielding 50 mL of [...] anterior loculation identified- Drainage catheter placed: 10 Cymro Multipurpose drainage catheter- External catheter securement: Non-absorbable suture- Post-drainage imaging findings: Partial drainage of theloculated fluid- Additional findings: None ContrastContrast agent: None Radiation DoseCT dose lengthproduct (mGy-cm): 1018 Additional DetailsAdditional description of procedure: NoneEquipment details: NoneSpecimens removed: Aspirated fluid was not sent for analysis.Estimated blood loss (mL): Less than 1 Signed: Bebeto Rice Verified Date/Time: 02/07/2021 13:09:25 Reading Location: [place] [address] Angio Body Reading Room POCT-GLUCOSE [id number] 11:42:22 Test Item Value Reference Range Interpretation Comments POC-GLUCOSE METER 178 mg/dL 70-110 H : Notified RN/MD: (BREANNA) (test code = TESTED AT [facility] 6720 1538) [facility], [address]: Electric Motor Tester Assembler/Techni bobby ID = [id number] for Britta Carreon [id number] 08:54:56 Test Item Value Reference Range Interpretation Comments Case Report (test code Medical Cytology = 104) Report Case: [id number] Authorizing Provider: Sander Nolan MD Collected: 02/01/2021 02:32 PM Ordering Location: [place] [address] ICU Received: 02/01/2021 06:33 PM Pathologist: Maria Esther North MD Specimen: Pleural, laterality not designated DIAGNOSIS (test code = [id number] 3220) FuZzEwMzNcZnRuYmpcdWMx IHtccnRmMVxlcGljOTYwMV fbyqIoIWMxvBEzG6Tfzmho YUnjKI9mRQ5yuHqhbPYjlS VcVQZhEbWpq0iat053zLQb a6vmKPSHvqygcIm6kJxwK1 4oe8Y6VlmcW82dqAAbFVV3 JWEoGSSmfEIsEJKtVRM7FR IjqTMaH3kuFOOoFQ0wawzd AUmdTOgcXZAkkHV6QJDdqB GwN2XtWCVoQTzaQEDnxen9 JgQiYy3srUCwwNbzQJykDG JkXHBsYWluXGZzMjAgUExF VVJBTCBGTFVJRCwgTEFURV BPUAuXFELDI2DdW2CQA9aZ MOXLRYJBYY0QNXNYKpKOZ7 gSOeosTLLfWMTiSV5VRZ4O TElHTkFOVCBDRUxMUyBJRE VOVElGSUVEXGxpbmUgICAg IMTSBN2NJA7EVQLYTZXSPH VJDt5XGMAvRM2QTZFPORWA H2QEELCUXNzGYCWdfl45NJ X6IzJdk3Q2UUA6RFCjFOUz a3xsQZGgbKXkVpBzOjHaNr FaDziiiHDnCOIhAgXbc6un z742tKZvu8dcNHGaLfB8eV VdFNAnfQDaQ759XPSuBAbl x8hvt1IoVMMhbAIft3Q6TF SPzggajSq1rSzeK92ib9Z3 YdpgJ2ryYSKyJASaI7UoDQ 2nTQMyAqh7CXK8UKC6ZALx ZIVbZ2GzHU9oKSKpsDSwZD z0u3pjyFgbJXHaBVT7m9hi LEvtqhZnAE6efg4gnDa8x8 xjczEgRGVmYXVsdCBQYXJh Q8EqzZkqRe5miOu5uRsgCz hvSMD8Hvt8LY3lys68vcs2 gGcwXDMvryttWaT9TGoySG BhangkTQk4ICsyBETkxFB1 JVJqcDVjE4RsWKQgZQ9hcg x8OBN9PCkjIXEgMsW3GRJd dHZmHMIzdVilFFabt200XK T2FrSkUY5nC3Laf0J6tM5t aXRcZGVmdGFiNzIwXGZvcm 9pyRLlNJnek1OsJXT5twQ9 qZQpxKEkPPSjKxL3OVnkCL 3iwg99RXCtOAS9ld3mjVGj zXarmrUnrSHsQWmkE4NlLQ Afp212GTDpL6SfQNJlo0P5 tgFkTsSnPGQwrSN5hfQ0KS PtIY5rlcrhd4mcYLnxFCaq IVLbjlO5ecC2PPZmnGUnJ2 GabM6wDKUlDS8bujybb6tc FHN0ZCiqHBUbIUJ1ScDnJL Lql4Kyqjh2QtUsx4JoxWFa UCrxU49ye404IGFqfjHwE0 xwbGFpblxwbGFpblxmMFxm rtO5LIEwEUrnzgsiICVkCL zuE2vuFdNuLCGqzVkvPUeb i0DpXGNvTSCgBwWdiEKnYK LuPxy9UPJqfXFnVZIvKzIb P3yuebwoJeEWFOZab8ddE0 pknZKHgMMwC6DgZMorzkMg NMkcKGziWjHhMKk0WS10Fq PpGslmWVQ5iH== COMMENT (test code = y0avoNOxMOThhZY9DlNfQQ 7823) Lrn5wnz3YxcNGwgFJtNMat hPVujzSwqk59iCE6qV19CG 1xFGKtTkE9ZFRdoaC6Nuf2 VIWbKBWzjPQmV093u8gqy7 nyfwOkvQN5aDydTVFstjiz IzL4IWezGEZrrbdoGWj2II qpMYWfoLI9NUSdxTDrY7Wt UCUdGC4rgff8OAU7UTedRT YwSdT0CYZlsODtLNVeyXry QRanw984YAH3JuYnBTOvwc UjqAbtqL8fGfRhGRPGiUTr X4KekWQac0EaJMBkxlH0xp Jpo3r8yFT9nSGoFLBttlCf AIlaL49xp4hiQJSewf3= CPT Code(s) (test code k6adaMXwWASiuBY1GtKoNK = 3357) Alv8pep9XnkKXowDCpQTrw dMBavhEvgl35yCK0gZ29GP 1cGWFfOpD9GUGlddU0Epn6 JGFxPWJyyKLoL697y2rlo1 fzbhDpjEJ7yFoiSCLefmlc CfC7FJqdXVSzrvflMKw5NX bvITRpfMD6TSDecMTaU9Jw IQUzJA8boos7NQI0MVvdLV AfWjM1LJRnuWJkXISimFtv FSpip499TND4PzXyOYDdbh JmcNvhkP1fPzMhRVX0SNDy OCwgODgzMDVccGFyfQ== CLINICAL DATA (test t5pdoHYhQPSvbQN5ShRfVI code = 3355) Lgb6doz0GalJGrqJTpBUvj qXYfrhIrpu27wHO8cM57OW 8iMGOnWtP0SQKzjgP5Ksy5 RRGeHDBiiAGvB028q0uxb9 gvukZpuEY6uCpzHVKbigqu VaO8JDvpXLUxdbtjQQk4GY euVPQriSH8TKIgyOJeT1Xk RUVzGU4ngks1YRN8AEqyBU EwAoL8GDDilELlJJArwHpl YWhuv774SUZ8ZwLgDYDzrt BxhIsujC5wXjLwGZKYvFI9 upWyXYPrUvZfuU7zFUBpuj 0= SPECIMEN SOURCE (test l9aoiPNwBHIjgZG2KfSpGY code = 3377) Frz1zfc8OonIQgzXDdTLiz pSZbniZozc50uHL2oZ45WC 1hKGXmUiG4XDPdhvD8Ajo0 YKCxZQWipJItO623g3box9 lsnxMzhHA4tHrfLVOfzczh PeJ3FTlvMPOtavxuSQt9WS gtYHOxiSF6KMFvoETwO3Rk OKZqBT8yslj5EPW9UBqfVY MuQbX7LXHguMZdLEIgdHoc AAfyx616IWE7AmSnHJMcox ByaJapbM5uXmYsKXMOTGOQ UkFMLCBGTFVJRCAoTEFURV PKUUxZWMBEM4PtCVCAQSiA QVRFRClccGFyfQ== GROSS DESCRIPTION (test b4bgbJIiRUTwiPR5VkPnVT code = 3366) Mrj3dig3ZehURfxCPiRUux eHBoczMgtb88uCP5iM44KW 7yELNbRnX6IXZousC5Yom6 RBVuWDMicNDhM233c1clg8 gumvDifQB7pOygODLdldrl YwK6WCftKWDiwoovORj1VR xtYXJnbDcyMFxtYXJncjcy MFxtYXJndDcyMFxtYXJnYj vmMLijNXMiTBZ6XEica278 IUT9YTpvT7pnrR5lEjZ6DS kuC9egpX7fPAl2OUvnSXPl iQU4ruwjAUimRVGausX2dx ogFXxoEMUycOV8vmylEVut YDIhGkI5djlkQZmgBOSpAE BsYWluXGZzMjAgUmVjZWl2 ZWQgNyBtbCBjbGVhciwgeW QksD50LFSqaLmlLMNktyPx cI3vzrfgqlZuJZJnn82yYU Umo3LnCoUssvKpZYOiULI4 LNZ0uMDepBnbffMwfwHjJ0 XznOVpeO1zqxfREfimUBSy LZdaCXYcs1JvFYLijJEoUF biDTZpeg8ncObsIYR0EZS3 JMXmfQ9vb77dIIPoTkalYy FccGFyfQ== MICROSCOPIC DESCRIPTION i7crhPPyXRNkbUJ6LyByND (test code = 3371) Jbj1geu9TigVEmqUOrTIun dNLekfWufa84dRW0oT92VO 6tRFKqRgE0RHAimqR7Ffz7 RLSkEEDmfBVoP675s6bup2 flbgYsiMT0zPhgESXgezfb DfP8ZFfyMNPwykusGSt8WN tuMTTyjLS5SFYaqDZzL1Ii FWVwLJ4aave4QWM2VZfdNR DcGeA4QLWbsEEzDOSvuPdl XZpxo383YXB4UqRqLCVcua GswDbhkI1nEoNoSJMVFIBc u4VvLLLlOOlfDAQ2 STATEMENT OF ADEQUACY Satisfactory (test code = 2757) Gross assessment was [facility] performed at (test code [facility], = 2777) Department of Pathology, [address] [place], [place] [id number], Technical component was [facility] performed at (test code [facility], = 4226) Department of Pathology, [address] [place] [address], Professional component [facility] was performed at ([facility], code = 2779) Department of Pathology, [address] [place] [address], [facility]20[facility] 08:54:56Medical Cytology Report Case: [id number] Authorizing Provider: Sander Nolan MD Collected: 02/01/2021 02:32 PM Ordering Location: [place] [address] ICU Received: 02/01/2021 06:33 PM Pathologist: Maria Esther North MD Specimen: Pleural, laterality not designated PLEURAL FLUID, LATERALITY NOT SPECIFIED, THORACENTESIS: -NO MALIGNANT CELLS IDENTIFIED -ABUNDANT ACUTE CHRONIC INFLAMMATORY CELLS Signing Pathologist Direct Phone Line: [phone] signed by Maria Esther North MD on 02/07/2021t 8:54 AMThe cellblock concurs with the above [id number], 21338Henjobo effusionPLEURAL, FLUID (LATERALITY NOT DESIGNATED)Received 7 ml clear, yellow fluid containing red blood clots; prepared 4 cytsopins and cell block(A2) - cell block fixed in formalin at 2:42 pm on 02/05/21Performed. [facility] of [facility], [address] [place] [address], [facility], [facility] of [facility], [address] [place] [address], [facility], Department of [facility]ology, [address] [place] [address], Ckmuwn [id number] 07:47:28 Test Item Value Reference Range Interpretation [...] = 3438) RUTHIE (test code = RUTHIE) Electric Motor Tester Assembler ID - Elzbieta Maher comments: Slide comments: Lab Interpretation Abnormal (test code = 11812-1) [facility](CELLAVISION MANUAL DIFF)2021-02-07 07:47:28 Test Item [...] CONCENTRATION Adequate (CELLAVISION)(BEAKER) (test code = 3438) Electric Motor Tester Assembler ID - Elzbieta Maher comments: Slide comments:CBC W/PLT COUNT & AUTO [id number] 07:47:27 Test Item Value Reference Range Interpretation [...] = 413) RAD, CHEST, 1 VIEW, NON [id number] 07:23:00Reason for exam:->s/p chest tubes placementShould this be performed at the bedside?->Yes [facility] 1960 Sex: MFINAL REPORT RAD, CHEST, [...] Stable surgical changes.Additional findings: None. Signed: JR Rodriguez Robert MDReport Verified Date/Time: 02/07/2021 07:23:16 Reading Location: [facility] Radiology Reading Room POCT-GLUCOSE [id number] 05:20:08 Test Item Value Reference Range Interpretation Comments POC-GLUCOSE METER 123 mg/dL 70-110 H : TESTED A T [facility] 6720 (BEAKER) (test code = D[place], 1538) [address]: Electric Motor Tester Assembler/Techni bobby ID = [id number] for WYATT BAILEY [id number] 04:25:23 Test Item Value Reference Range Interpretation Comments Phosphorus (test code = 2.8 mg/dL 2.3-4.7 2777-1) RUTHIE (test code = RUTHIE) Electric Motor Tester Assembler ID - REANNA L Lab Interpretation (test Normal code = 93886-5) [facility] CenterPHOSPHORUS2021-12-29 04:25:23 Test Item Value Reference Range Interpretation Comments PHOSPHORUS (BEAKER) (test code = 2.8 mg/dL 2.3-4.7 604) Electric Motor Tester Assembler ID - REANNA [id number] 04:25:22 Test Item Value Reference Range Interpretation Comments MAGNESIUM (BEAKER) (test code = 1.7 mg/dL 1.6-2.6 627) Electric Motor Tester Assembler ID - REANNA LCOMPREHENSIVE METABOLIC [id number] 04:25:21 Test Item Value Reference Range Interpretation [...] S NOT APPLICABLE FOR DIALYSIS PATIEN TS. Electric Motor Tester Assembler ID - PIAYA LProthrombin time/[id number] 04:19:22 Test Item Value Reference Interpretation Comments Range Protime (test code = 15.6 See_Comment H [Autom ated 5902-2) message] The system which generated this result transmitted reference range : 11.9 - 14.2 seconds. The reference range was not used to interpret this result as normal/abnormal . INR (test code = 1.26 See_Comment [Automated 6301-6) message] The system which generated this result [...] valves. Lab Interpretation Abnormal (test code = 53086-0) [facility] CenterPROTHROMBIN TIME/[id number] 04:19:22 Test Item Value Reference Range Interpretation Comments PROTIME (BEAKER) 15.6 seconds 11.9-14.2 H (test code = 759) INR (BEAKER) (test 1.26 See_Comment [Automat ed message] code = 370) The system Bleachers generated this result transmitted ref erence range: <=5.90. The reference range was not used to int erpret this result as normal/abnormal . RECOMMENDED COUMADIN/WARFARIN INR THERAPY RANGESSTANDARD DOSE: 2.0 - 3.0 Includes: PROPHYLAXIS for venous thrombosis, systemic embolization; TREATMENT for venous thrombosis and/or pulmonary embolus.HIGH RISK: Target INR is 2.5-3.5 for patients with mechanical heart valves.Calcium, [id number] 04:09:20 Test Item Value Reference Range Interpretation Comments Calcium, Ion (test code = 1994-) 1.30 mmol/L 1.12-1.27 H pH, Blood (test code = 73463-5) 7.37 Lab Interpretation (test code = Abnormal 73201-7) [facility] CenterCALCIUM, [id number] 04:09:20 Test Item Value Reference Range Interpretation Comments CALCIUM IONIZED (BEAKER) (test 1.30 mmol/L 1.12-1.27 H code = 698) PH, BLOOD (BEAKER) (test code = 7.37 1810) BLOOD GAS, [id number] 04:09:14 Test Item Value Reference Range Interpretation [...] (BEAKER) (test code = 1819) 40.0 POCT-GLUCOSE [id number] 23:34:20 Test Item Value Reference Range Interpretation Comments POC-GLUCOSE METER 141 mg/dL 70-110 H : TESTED A T [facility] 6720 (BEAKER) (test code = [place], 1538) [address]: Electric Motor Tester Assembler/Techni bobby ID = [id number] for WYATT BAILEY CBC (HEMOGRAM ONLY)2021-02-06 22:43:36 [...] (BEAKER) (test code = 413) BASIC METABOLIC [id number] 18:32:30 Test Item Value Reference Range Interpretation [...] S NOT APPLICABLE FOR DIALYSIS PATIEN TS. Electric Motor Tester Assembler ID - BSBLOOD GAS, [id number] 18:19:57 Test Item Value Reference Range Interpretation [...] 0-0 (BEAKER) (test code = 413) POCT-GLUCOSE [id number] 15:54:35 Test Item Value Reference Range Interpretation Comments POC-GLUCOSE METER 138 mg/dL 70-110 H : TESTED A T [facility] 6720 (BEAKER) (test code = [facility], 153) [address]: Electric Motor Tester Assembler/Techni bobby ID = [id number] for IB RAHIM, [place] POCT-GLUCOSE [id number] 11:50:36 Test Item Value Reference Range Interpretation Comments POC-GLUCOSE METER 150 mg/dL 70-110 H : TESTED A T [facility] 6720 (BEAKER) (test code = [facility], 1538) 477[address]: Electric Motor Tester Assembler/Techni bobby ID = [id number] for IB RAHIM, [place] POCT-GLUCOSE [id number] 07:58:49 Test Item Value Reference Range Interpretation Comments POC-GLUCOSE METER 151 mg/dL 70-110 H : TESTED A T [facility] 6720 (BEAKER) (test code = [facility], 1538) [address]: Electric Motor Tester Assembler/Techni bobby ID = [id number] for AMNA BERKOWITZ RAD, CHEST, 1 VIEW, NON [id number] 07:15:00Reason for exam:- >IntubateReason for exam:->Chest tubes placementShould this be performed at the bedside?->Yes [facility] 1960 Sex: MFINAL REPORT RAD, CHEST, [...] MDReport Verified Date/Time: 02/06/2021 07:15:27 Reading Location: [facility] Radiology Reading Room [id number] 06:06:45 Test Item Value Reference Range Interpretation Comments PHOSPHORUS (BEAKER) (test code = 2.4 mg/dL 2.3-4.7 604) Electric Motor Tester Assembler ID - REANNA [id number] 06:06:44 Test Item Value Reference Range Interpretation Comments MAGNESIUM (BEAKER) (test code = 1.7 mg/dL 1.6-2.6 627) Electric Motor Tester Assembler ID - REANNA LCOMPREHENSIVE METABOLIC [id number] 06:06:43 Test Item Value Reference Range Interpretation [...] S NOT APPLICABLE FOR DIALYSIS PATIEN TS. Electric Motor Tester Assembler ID - PIAYA LPROTHROMBIN TIME/[id number] 05:10:54 Test Item Value Reference Range Interpretation Comments PROTIME (BEAKER) 14.6 seconds 11.9-14.2 H (test code = 759) INR (BEAKER) (test 1.16 See_Comment [Automat ed message] code = 370) The system Bleachers generated this result transmitted ref erence range: <=5.90. The reference range was not used to int erpret this result as normal/abnormal . RECOMMENDED COUMADIN/WARFARIN INR THERAPY RANGESSTANDARD DOSE: 2.0 - 3.0 Includes: PROPHYLAXIS for venous thrombosis, systemic embolization; TREATMENT for venous thrombosis and/or pulmonary embolus.HIGH RISK: Target INR is 2.5-3.5 for patients with mechanical heart valves.CBC W/PLT COUNT & AUTO [id number] 05:02:27 Test Item Value Reference Range Interpretation [...] PERCENT (BEAKER) (test code = 2801) CALCIUM, [id number] 04:46:29 Test Item Value Reference Range Interpretation Comments CALCIUM IONIZED (BEAKER) (test 1.28 mmol/L 1.12-1.27 H code = 698) PH, BLOOD (BEAKER) (test code = 7.45 1810) BLOOD GAS, [id number] 04:46:26 Test Item Value Reference Range Interpretation [...] = 1819) 40.0 RAD, ABDOMEN/KUB, 1 VIEW [id number] 22:21:00Reason for exam:->NG/OG placementShould this be performed at the bedside?->Yes [facility] 1960 Sex: MFINAL REPORT Abdomen one [...] (BEAKER) (test code = 413) BASIC METABOLIC [id number] 17:20:18 Test Item Value Reference Range Interpretation [...] S NOT APPLICABLE FOR DIALYSIS PATIEN TS. Electric Motor Tester Assembler ID - DBPOCT-GLUCOSE [id number] 17:19:01 Test Item Value Reference Range Interpretation Comments POC-GLUCOSE METER 168 mg/dL 70-110 H : TESTED A T [facility] 6720 (BEAKER) (test code = [place], 1538) [address]: Electric Motor Tester Assembler/Techni bobby ID = [id number] for Desiree garber (contract), Reina kerens BLOOD GAS, [id number] 17:01:00 Test Item Value Reference Range Interpretation [...] (BEAKER) (test code = 1819) 70.0 POCT-GLUCOSE [id number] 15:40:17 Test Item Value Reference Range Interpretation Comments POC-GLUCOSE METER 136 mg/dL 70-110 H : TESTED A T [facility] 6720 (BEAKER) (test code = DAVINDESIREE [place], 1538) [address]: Electric Motor Tester Assembler/Techni bobby ID = [id number] for IB JASPAL SHEPARDM RAD, CHEST, 1 VIEW, NON [id number] 14:36:00Reason for exam:->s/p intubatedShould this be performed at the bedside?->Yes [facility] 1960 Sex: MFINAL REPORT RAD, CHEST, 1 VIEW, NON DEPT INDICATION: s/p intubated COMPARISON: Prior day's exam FINDINGS: Portable frontal view of the chest. IMPRESSION: Support Lines: Stable. Lungs and pleura: Unchanged airspace and pleural opacities. No pneumothorax.Heart and mediastinum: Stable contours. Additional findings: None. Signed: JR Rodriguez Robert MDReport Verified Date/Time: 114:36:19 Reading Location: [facility] Radiology Reading Room CBC (HEMOGRAM ONLY)2021-02-05 [...] 0-0 (BEAKER) (test code = 413) POCT-GLUCOSE [id number] 11:15:51 Test Item Value Reference Range Interpretation Comments POC-GLUCOSE METER 184 mg/dL 70-110 H : TESTED A T [facility] 6720 (BEAKER) (test code = [place], 1538) 79[address]: Electric Motor Tester Assembler/Techni bobby ID = [id number] for IB DEVYN, JASPALM BLOOD [id number] 10:34:11 Test Item Value Reference Range Interpretation Comments CULTURE (BEAKER) A From Aerobi c Bottle (test code = Only Same organ ism has 1095) been isolated f rom cultures(s) of the same body site and collection date . Repeat identifi cation and susceptibil ity testing perform ed only after consultat ion with the clinic [place] [facility]ology laboratory.Refe r to previous cultur e ofCandida albic ans GRAM STAIN From aerobic RESULT (BEAKER) bottle only: (test code = yeast 1123) The specimen volume collected for this blood culture was below the optimum (10 mL per bottle or 20 mL total). Use of lower volumes may adversely affect recovery and/or detection times of some organisms.BLOOD [id number] 10:33:47 Test Item Value Reference Range Interpretation [...] d message] code = 143) The system Bleachers generated this result transmitted ref erence range: Suscepti ble 0-2 , Dose Depe ndent Susceptible <0 or >2 , Resi. The ref erence range was not u sed to interpret this result as normal/abnor mal. Itraconazole (test See_Comment S [Automat ed message] code = 146) The system Bleachers generated this result transmitted ref erence range: Suscepti ble 0-0.125 , Dose Dependent Susce ptible <0 or >.125. Th e reference range was not used to int erpret this result as normal/abnormal . Micafungin (test See_Comment S [Automated message] code = 148) The system Bleachers generated this result transmitted ref erence range: Suscepti ble 0-0.25 , Non-susceptible <0 or >.25 , Resistan t . The reference r raffaele was not used to interpret this result as normal/abnor mal. Posaconazole (test See_Comment [Automat ed message] code = 152) The system Bleachers generated this result transmitted ref erence range: Suscepti ble >0-0 , No Interpretations Established <=0 or >0 . The reference range was not used to interpret this result as normal/abnor mal. Voriconazole (test See_Comment S [Automat ed message] code = 153) The system Bleachers generated this result transmitted ref erence range: Suscepti ble 0-0.12 , Dose Dependent Susce ptible <0 or >.12 ,. T he reference range was not used to int erpret this result as normal/abnormal . GRAM STAIN RESULT From aerobic (BEAKER) (test code bottle only: = 1123) yeast POCT-GLUCOSE [id number] 09:39:35 Test Item Value Reference Range Interpretation Comments POC-GLUCOSE METER 178 mg/dL 70-110 H : TESTED A T [facility] 6720 (BEAKER) (test code = DIONI Mccullough [facility], 1538) [address]: Electric Motor Tester Assembler/Techni bobby ID = [id number] for Desiree garber (contract), Reina xis Wound culture + gram [id number] 09:19:12 Test Item Value Reference Range Interpretation Comments Result (test code = 6463-4) No growth Gram Stain Result (test No organisms seen code = 1123) [facility] CenterW[facility] + GRAM [id number] 09:19:12 Test Item Value Reference Range Interpretation Comments CULTURE (BEAKER) (test No growth code = 1095) GRAM STAIN RESULT 2+ White blood cells (BEAKER) (test code = seen 1123) GRAM STAIN RESULT No organisms seen (BEAKER) (test code = 62396) SARS-COV2/RT-PCR ([facility])2021-02-05 05:39:22 Test Item Value Reference Range Interpretation Comments SARS-COV2/RT-PCR Negative Negative The SARS-Co V-2 target (test code = nucleic acids a re not 4255022) detected in thi s specimen. Negative result [...] revoked sooner. Fact Sheet for Healthcare Providers: https://www.Teikon m/Documents/Xpert%20Xpress%20SARS%20CoV-2/Fact%20Sheets/302-3802%19DIYT-YHN-3%20 HEALTHCARE%20PROVIDERS%20FACT%20SHEET.pdf Fact Sheet for Healthcare Patients: https://www.Prezma/Documents/Xpert%20Xp ress%20SARS%20CoV-2/Fact%20Sheets/302-3801%35DNWO-KDY-7%20PATIENT%20FACT%20SHEET .pdfPOCT-GLUCOSE [id number] 04:42:38 Test Item Value Reference Range Interpretation Comments POC-GLUCOSE METER 196 mg/dL 70-110 H : TESTED A T [facility] 6720 (BREANNA) (test code = [place], 1538) 04[address]: Electric Motor Tester Assembler/Techni bobby ID = [id number] for Guru Cherry PT/[id number] 04:35:17 Test Item Value Reference Interpretation Comments Range Protime (test code = 14.9 See_Comment H [Autom ated 5902-2) message] The system which generated this result transmitted reference range : 11.9 - 14.2 seconds. The reference range was not used to interpret this result as normal/abnormal . INR (test code = 1.19 See_Comment [Automated 7031-6) message] The system which generated this result transmitted reference range : <=5.90. The reference range was not used to interpret this result as normal/abnormal . PTT (test code = 33.4 See_Comment [Automated 71092-3) message] The system which generated this result [...] valves. Lab Interpretation Abnormal (test code = 04524-2) [facility] CenterPT/[id number] 04:35:17 Test Item Value Reference Range Interpretation [...] 2.5-3.5 for patients with mechanical heart valves.PROTHROMBIN TIME/[id number] 04:34:38 Test Item Value Reference Range Interpretation Comments PROTIME (BEAKER) 14.9 seconds 11.9-14.2 H (test code = 759) INR (BEAKER) (test 1.19 See_Comment [Automat ed message] code = 370) The system iTaggedic h generated this result transmitted ref erence range: <=5.90. The reference range was not used to int erpret this result as normal/abnormal . RECOMMENDED COUMADIN/WARFARIN INR THERAPY RANGESSTANDARD DOSE: 2.0 - 3.0 Includes: PROPHYLAXIS for venous thrombosis, systemic embolization; TREATMENT for venous thrombosis and/or pulmonary embolus.HIGH RISK: Target INR is 2.5-3.5 for patients with mechanical heart valves.[id number] 04:33:58 Test Item Value Reference Range Interpretation Comments PHOSPHORUS (BEAKER) (test code = 1.9 mg/dL 2.3-4.7 L 604) Electric Motor Tester Assembler ID - [id number] 04:33:57 Test Item Value Reference Range Interpretation Comments MAGNESIUM (BEAKER) (test code = 1.9 mg/dL 1.6-2.6 627) Electric Motor Tester Assembler ID - DBCOMPREHENSIVE METABOLIC [id number] 04:33:56 Test Item Value Reference Range Interpretation [...] S NOT APPLICABLE FOR DIALYSIS PATIEN TS. Electric Motor Tester Assembler ID - DBCBC W/PLT COUNT & AUTO [id number] 04:21:40 Test Item Value Reference Range Interpretation [...] (BEAKER) (test code = 2801) BLOOD GAS, [id number] 04:03:15 Test Item Value Reference Range Interpretation [...] (BEAKER) (test code = 1819) 40.0 CALCIUM, [id number] 04:03:14 Test Item Value Reference Range Interpretation Comments CALCIUM IONIZED (BEAKER) (test 1.29 mmol/L 1.12-1.27 H code = 698) PH, BLOOD (BEAKER) (test code = 7.39 1810) POCT-GLUCOSE [id number] 00:43:51 Test Item Value Reference Range Interpretation Comments POC-GLUCOSE METER 180 mg/dL 70-110 H : TESTED A T [facility] 6720 (BEAKER) (test code = [place], 1538) [address]07[address]: Electric Motor Tester Assembler/Techni bobby ID = [id number] for Guru Cherry Prepare Leuko-Red [id number] 23:54:00 Test Item Value Reference Range Interpretation Comments CROSSMATCH (test code = 2264) COMPATIBLE Unit ABO (test code = O Neg 7760925) UNIT NUMBER (test code = [id number] 934-0) Status (test code = 3296694) TX_TIMEINCCARONDELET ST. [facility]ALT Blood Bank Product (test code RED BLOOD CELLS = 2263) PRODUCT CODE (test code = [id number] 933-2) [facility] (HEMOGRAM ONLY)2021-02-04 19:47:03 Test Item Value Reference [...] (BEAKER) (test code = 413) BASIC METABOLIC [id number] 17:01:34 Test Item Value Reference Range Interpretation [...] S NOT APPLICABLE FOR DIALYSIS PATIEN TS. Electric Motor Tester Assembler ID - DBBLOOD GAS, [id number] 16:56:59 Test Item Value Reference Range Interpretation [...] (test code = 1819) 40.0 CT, LIMITED/LOCALIZED [id number] 16:00:00Reason for exam:->IR guided chest abscess drainage [facility] 1960 Sex: MFINAL REPORT TECHNIQUE: CT [...] lie still during the procedure. Signed: [facility] Verified Date/Time: 02/04/2021 16:00:04 Reading Location: [facility] C013Y CT Body Reading Room -GLUCOSE [id number] 15:20:20 Test Item Value Reference Range Interpretation Comments POC-GLUCOSE METER 137 mg/dL 70-110 H : TESTED A T [facility] 6720 (BEAKER) (test code = [facility], 1538) 32[address]: Electric Motor Tester Assembler/Techni bobby ID = [id number] for DOMENICO BRYANT CBC (HEMOGRAM ONLY)2021-02-04 14:52:18 [...] = 413) Body fluid culture + gram [id number] 13:07:02 Test Item Value Reference Range Interpretation Comments Result (test code = 6463-4) No growth Gram Stain Result (test No organisms seen code = 1123) [facility] CenterBODY FLUID CULTURE + GRAM [id number] 13:07:02 Test Item Value Reference Range Interpretation Comments CULTURE (BEAKER) (test code No growth = 1095) GRAM STAIN RESULT (BEAKER) 1+ WBCs (test code = 1123) GRAM STAIN RESULT (BEAKER) No organisms seen (test code = 52056) (CELLAVISION MANUAL DIFF)2021-02-04 07:23:44 Test Item Value [...] CONCENTRATION Adequate (CELLAVISION)(BEAKER) (test code = 3438) Electric Motor Tester Assembler ID - Bekah Jha comments: Slide comments:CBC W/PLT COUNT & AUTO [id number] 07:23:43 Test Item Value Reference Range Interpretation [...] 0-0 (BEAKER) (test code = 413) POCT-GLUCOSE [id number] 06:32:59 Test Item Value Reference Range Interpretation Comments POC-GLUCOSE METER 139 mg/dL 70-110 H : TESTED A T [facility] 6720 (BEAKER) (test code = DIONI [place], 1538) [address]351: Electric Motor Tester Assembler/Techni bobby ID = [id number] for TA I, CLAUDIO-AN RAD, CHEST, 1 VIEW, NON [id number] 04:56:00Reason for exam:->s/p intubatedShould this be performed at the bedside?->Yes [facility] : 1960 Sex: MFINAL REPORT EXAM/TECHNIQUE: Single view frontal radiograph of the chest. INDICATION: Intubated. COMPARISON: 02/03/2021 FINDINGS: Devices/Objects: Stable. Lungs: Similar left pulmonary opacities. Heart/Mediastinum: Similar cardiomegaly. Osseous: No acute osseous process. No suspicious osseous lesion. Upper abdomen: Unremarkable. Impression: No new cardiopulmonary process. Signed: Mario Stubbs MDReport Verified Date/Time: 02/04/2021 04:56:33 COMPREHENSIVE METABOLIC [id number] 04:07:45 Test Item Value Reference Range Interpretation [...] S NOT APPLICABLE FOR DIALYSIS PATIEN TS. Electric Motor Tester Assembler ID - [id number] 04:06:30 Test Item Value Reference Range Interpretation Comments PHOSPHORUS (BEAKER) (test code = 2.3 mg/dL 2.3-4.7 604) Electric Motor Tester Assembler ID - [id number] 04:06:29 Test Item Value Reference Range Interpretation Comments MAGNESIUM (BEAKER) (test code = 1.9 mg/dL 1.6-2.6 627) Electric Motor Tester Assembler ID - [id number] 03:47:03 Test Item Value Reference Range Interpretation Comments PTT (test code = 79141-1) 27.6 See_Comment [ Automated message] The system [employer] generated this result transmitted ref erence range: 22.5 - 3 6.0 seconds. The re ference range was not u sed to interpret this result as normal/abnor mal. Lab Interpretation (test Normal code = 75199-9) [facility]APTT[facility] 03:47:03 Test Item Value Reference Range Interpretation Comments PARTIAL THROMBOPLASTIN TIME 27.6 seconds 22.5-36.0 (BEAKER) (test code = 760) PROTHROMBIN TIME/[id number] 03:46:23 Test Item Value Reference Range Interpretation Comments PROTIME (BEAKER) 14.3 seconds 11.9-14.2 H (test code = 759) INR (BEAKER) (test 1.13 See_Comment [Automat ed message] code = 370) The system [employer] generated this result transmitted ref erence range: <=5.90. The reference range was not used to int erpret this result as normal/abnormal . RECOMMENDED COUMADIN/WARFARIN INR THERAPY RANGESSTANDARD DOSE: 2.0 - 3.0 Includes: PROPHYLAXIS for venous thrombosis, systemic embolization; TREATMENT for venous thrombosis and/or pulmonary embolus.HIGH RISK: Target INR is 2.5-3.5 for patients with mechanical heart valves.CALCIUM, [id number] 03:44:20 Test Item Value Reference Range Interpretation Comments CALCIUM IONIZED (BEAKER) (test 1.30 mmol/L 1.12-1.27 H code = 698) PH, BLOOD (BEAKER) (test code = 7.35 1810) BLOOD GAS, [id number] 03:44:20 Test Item Value Reference Range Interpretation [...] 1819) 50.0 RAD, CHEST, 1 VIEW, NON [id number] 22:03:00Reason for exam:->Acute distress, chest tube placement, pneumothoraxShould this be performed at the bedside?->[facility] 1960 Sex: MFINAL REPORT EXAM/TECHNIQUE: Single view frontal radiograph of the chest. INDICATION: Acute distress. COMPARISON: 02/03/2021. FINDINGS: Devices/Objects: Stable. Lungs: Similar left lung opacification without visible pneumothorax. Heart/Mediastinum: Similar cardiomegaly. Osseous: No acute osseous process. No suspicious osseous lesion. Left neck and chest wall emphysema. Upper abdomen: Unremarkable. Impression: Similar left lung opacification without visible pneumothorax. Signed: Mario Stubbs [facility] Verified Date/Time: 02/03/2021 22:03:38 Electronically signed by: [...] (BEAKER) (test code = 413) BASIC METABOLIC [id number] 18:12:37 Test Item Value Reference Range Interpretation [...] S NOT APPLICABLE FOR DIALYSIS PATIEN TS. Electric Motor Tester Assembler ID - DBPOCT-GLUCOSE [id number] 17:47:13 Test Item Value Reference Range Interpretation Comments POC-GLUCOSE METER 174 mg/dL 70-110 H : Notified RN/MD: (BREANNA) (test code = TESTED AT [facility] 6751 4073) [place], [address]: Electric Motor Tester Assembler/Techni bobby ID = [id number] for PURVI PAZ BLOOD GAS, [id number] 17:29:45 Test Item Value Reference Range Interpretation [...] code = 1819) 40.0 Vitamin B12 and [id number] 14:29:57 Test Item Value Reference Range Interpretation Comments Vitamin B12 (test 420 pg/mL 213-816 code = 2132-9) Folate (test code = 38.40 ng/mL See_Comment [Automa tuyet 2284-8) message] The system which generated this result transmitted reference range : >=7.00. The reference range was not used to interpret this result as normal/abnormal . RUTHIE (test code = RUTHIE) Electric Motor Tester Assembler ID - LIZET Sandsator ID - LIZET [place] Lab Interpretation Normal (test code = 29110-6) [facility] CenterVITAMIN B12 AND [id number] 14:29:57 Test Item Value Reference Range Interpretation Comments VITAMIN B12 420 pg/mL 213-816 (BEAKER) (test code = 774) FOLATE (BEAKER) 38.40 ng/mL See_Comment [Automated message] (test code = 362) The system which generated this result transmitted ref erence range: >=7.00. The reference range was not used to interpr et this result as normal/abnormal . Electric Motor Tester Assembler ID - LIZET WOperator ID - LIZET WCT, CHEST, WITH [id number] 14:23:00Unlisted Reason for Exam - Click Yes and Enter Reason Below- >YesUnlisted Reason for Exam->s/p decortication for L lung empyema. possible residiual loculated fluid collection in [place] assessment [facility] 1960 Sex: MFINAL REPORT CT of [...] and left chest wall. Signed: Rafa Berry Verified Date/Time: 02/03/2021 14:23:14 Reading Location: [address] Ortho Consult Reading Room POCT-GLUCOSE [id number] 12:25:29 Test Item Value Reference Range Interpretation Comments POC-GLUCOSE METER 164 mg/dL 70-110 H : TESTED A T [facility] (test code = DIONI Mccullough [place], 1538) [address]: Electric Motor Tester Assembler/Techni bobby ID = [id number] for PURVI PAZ Blood gas, [id number] 11:45:15 Test Item Value Reference Range Interpretation Comments pH, Arterial (test code 7.46 7.35-7.45 H = 2744-1) pCO2, Arterial (test 43 See_Comment [Autom ated message] code = 2019-8) The system [employer] generated this result transmit tuyet reference range : 35 - 45 mm Hg. The reference range was not used to interpret this result as normal/abnormal . pO2, Arterial (test 83 See_Comment [Automa tuyet message] code = 2703-7) The system [employer] generated this result transmit tuyet reference range [...] 60 Lab Interpretation Abnormal (test code = 32972-4) [facility] CenterBLOOD GAS, [id number] 11:45:15 Test Item Value Reference Range Interpretation [...] = 413) BODY FLUID CULTURE + GRAM [id number] 10:32:27 Test Item Value Reference Range Interpretation Comments CULTURE (BEAKER) STREPTOCOCCUS A From Aerob ic And (test code = INTERMEDIUS Anaerobic Bottl es 1095) Streptococcus intermedius Ceftriaxone (test mcg/mL [...] positive cocci in pairs and clusters SPIN/CONCENTRATION [id number] 09:42:36 Test Item Value Reference Range Interpretation Comments Concentration charged (test code = Done 2657) [facility] [id number] 09:42:36 Test Item Value Reference Range Interpretation Comments CONCENTRATION CHARGED (BEAKER) (test Done code = 2117) COMPREHENSIVE METABOLIC [id number] 08:00:32 Test Item Value Reference Range Interpretation [...] S NOT APPLICABLE FOR DIALYSIS PATIEN TS. Electric Motor Tester Assembler ID - LIZET WCBC W/PLT COUNT & AUTO [id number] 07:43:07 Test Item Value Reference Range Interpretation [...] PERCENT (BEAKER) (test code = 2801) PROTHROMBIN TIME/[id number] 07:42:48 Test Item Value Reference Range Interpretation Comments PROTIME (BEAKER) 15.0 seconds 11.9-14.2 H (test code = 759) INR (BEAKER) (test 1.20 See_Comment [Automat ed message] code = 370) The system Bleachers generated this result transmitted ref erence range: <=5.90. The reference range was not used to int erpret this result as normal/abnormal . RECOMMENDED COUMADIN/WARFARIN INR THERAPY RANGESSTANDARD DOSE: 2.0 - 3.0 Includes: PROPHYLAXIS for venous thrombosis, systemic embolization; TREATMENT for venous thrombosis and/or pulmonary embolus.HIGH RISK: Target INR is 2.5-3.5 for patients with mechanical heart valves.[id number] 07:33:28 Test Item Value Reference Range Interpretation Comments PHOSPHORUS (BEAKER) (test code = 2.7 mg/dL 2.3-4.7 604) Electric Motor Tester Assembler ID - LIZET [id number] 07:33:27 Test Item Value Reference Range Interpretation Comments MAGNESIUM (BEAKER) (test code = 2.2 mg/dL 1.6-2.6 627) Electric Motor Tester Assembler ID - LIZET WRAD, CHEST, 1 VIEW, NON [id number] 07:32:00Reason for exam:->s/p intubatedShould this be performed at the bedside?->Yes [facility] 1960 Sex: MFINAL REPORT RAD, CHEST, [...] Significant decreased pleural effusion. No significant pneumothorax. Heartand mediastinum: Stable contours. Stable surgical changes. Additional findings: None. . Signed: Paige Seay MDReport Verified Date/Time: 02/03/2021 07:32:13 BLOOD GAS, [id number] 07:10:02 Test Item Value Reference Range Interpretation [...] (BEAKER) (test code = 1819) 40.0 CALCIUM, [id number] 07:08:03 Test Item Value Reference Range Interpretation Comments CALCIUM IONIZED (BEAKER) (test 1.27 mmol/L 1.12-1.27 code = 698) PH, BLOOD (BEAKER) (test code = 7.38 1810) POCT-GLUCOSE [id number] 06:01:03 Test Item Value Reference Range Interpretation Comments POC-GLUCOSE METER 185 mg/dL 70-110 H : TESTED A T [facility] 6720 (BEAKER) (test code [facility], = 1538) [address]: Electric Motor Tester Assembler/Techni bobby ID = [id number] for SUGU , SHEENAMOL POCT-GLUCOSE [id number] 00:30:38 Test Item Value Reference Range Interpretation Comments POC-GLUCOSE METER 207 mg/dL 70-110 H : TESTED A T [facility] 6720 (BEAKER) (test code [facility], = 1538) [address]: Electric Motor Tester Assembler/Techni bobby ID = [id number] for SUGU , SHEENAMOL BASIC METABOLIC [id number] 00:13:24 Test Item Value Reference Range Interpretation [...] S NOT APPLICABLE FOR DIALYSIS PATIEN TS. Electric Motor Tester Assembler ID Soo LIZET [id number] 00:10:48 Test Item Value Reference Range Interpretation Comments MAGNESIUM (BEAKER) (test code = 1.9 mg/dL 1.6-2.6 627) Electric Motor Tester Assembler ID Soo HINDS [id number] 00:10:48 Test Item Value Reference Range Interpretation Comments PHOSPHORUS (BEAKER) (test code = 2.7 mg/dL 2.3-4.7 604) Electric Motor Tester Assembler ID - LIZET WCBC (HEMOGRAM ONLY)2021-02-02 23:43:10 [...] (BEAKER) (test code = 413) BLOOD GAS, [id number] 23:35:07 Test Item Value Reference Range Interpretation [...] (BEAKER) (test code = 1819) 40.0 POCT-GLUCOSE [id number] 18:58:46 Test Item Value Reference Range Interpretation Comments POC-GLUCOSE METER 183 mg/dL 70-110 H : TESTED A T [facility] 6720 (BEAKER) (test code [facility], = 1538) [address]: Electric Motor Tester Assembler/Techni bobby ID = [id number] for Geneva garcia (contract), [facility] lorraine BASIC METABOLIC [id number] 17:52:35 Test Item Value Reference Range Interpretation [...] S NOT APPLICABLE FOR DIALYSIS PATIEN TS. Electric Motor Tester Assembler ID - [id number] 17:48:39 Test Item Value Reference Range Interpretation Comments PHOSPHORUS (BEAKER) (test code = 3.1 mg/dL 2.3-4.7 604) Electric Motor Tester Assembler ID - [id number] 17:48:38 Test Item Value Reference Range Interpretation Comments MAGNESIUM (BEAKER) (test code = 2.0 mg/dL 1.6-2.6 627) Electric Motor Tester Assembler ID - DBVancomycin level, [id number] 17:45:42 Test Item Value Reference Range Interpretation Comments Vancomycin Tr (test code = 17.7 ug/mL 10.0-20.0 4092-3) RUTHIE (test code = RUTHIE) Electric Motor Tester Assembler ID - DB Lab Interpretation (test Normal code = 59748-8) [facility] CenterVANCOMYCIN LEVEL, [id number] 17:45:42 Test Item Value Reference Range Interpretation Comments VANCOMYCIN TROUGH (BEAKER) (test 17.7 ug/mL 10.0-20.0 code = 522) Electric Motor Tester Assembler ID - DBBLOOD GAS, [id number] 17:17:22 Test Item Value Reference Range Interpretation [...] (test code = 1819) 50.0 Triglycerides, Pleural [id number] 16:52:16 Test Item Value Reference Range Interpretation Comments TRIGLYCERIDES, 109 mg/dL See Note: Reference PLEURAL FLUID Range:CHYLOUS: (test code = >110NONCHYLOUS: 9619-8) <50 RUTHIE (test code = Performing Lab EZ RUTHIE) [employer] [facility] [address] [place] [address] Annie Paez MD, PhD, JALIL [facility] CenterBAMAR[facility] METABOLIC [id number] 13:48:23 Test Item Value Reference Range Interpretation [...] S NOT APPLICABLE FOR DIALYSIS PATIEN TS. Electric Motor Tester Assembler ID - PIAYA [id number] 13:45:56 Test Item Value Reference Range Interpretation Comments PHOSPHORUS (BEAKER) (test code = 1.7 mg/dL 2.3-4.7 L 604) Electric Motor Tester Assembler ID - PIAYA LPOCT-GLUCOSE [id number] 12:45:27 Test Item Value Reference Range Interpretation Comments POC-GLUCOSE METER 224 mg/dL 70-110 H : [facility] (BEAKER) ([facility] = 1538) [address]: Electric Motor Tester Assembler/Techni bobby ID = [id number] for Geneva garcia (contract), [facility] lorraine Sodium, random [id number] 11:49:15 Test Item Value Reference Range Interpretation Comments Sodium Urine (test <20 meq/L code = 2955-3) RUTHIE (test code = Reference Range: No RUTHIE) NormalsOperator ID - PIAYA L [facility] CenterODIUM, RANDOM [id number] 11:49:15 Test Item Value Reference Range Interpretation Comments SODIUM URINE (BEAKER) (test code = < meq/L 243) Reference Range: No NormalsOperator ID - PIAYA LChloride, random [id number] 11:37:37 Test Item Value Reference Range Interpretation Comments Chloride, Urine 41 meq/L (test code = 67862-4) RUTHIE (test code = Reference Range: No RUTHIE) NormalsOperator ID - PIAYA L [facility] CenterPotassium, random [id number] 11:37:37 Test Item Value Reference Range Interpretation Comments Potassium Urine 22.8 meq/L (test code = 2828-2) RUTHIE (test code = Reference Range: No RUTHIE) NormalsOperator ID - PIAYA L [facility] CenterCHLORIDE, RANDOM [id number] 11:37:37 Test Item Value Reference Range Interpretation Comments CHLORIDE URINE (BEAKER) (test code = 41 meq/L 682) Reference Range: No NormalsOperator ID - PIAYA LPOTASSIUM, RANDOM URINE 2021-02-02 11:37:37 Test Item Value Reference Range Interpretation Comments POTASSIUM URINE (BEAKER) (test 22.8 meq/L code = 195) Reference Range: No NormalsOperator ID - PIAYA LGlucose, body [id number] 10:58:07 Test Item Value Reference Range Interpretation Comments Glucose, Body Fluid <7 mg/dL (test code = 2344-0) RUTHIE (test code = Absence of reference RUTHIE) range indicates that normals have not been defined.Assay performance has not been validated for this type of specimen. Electric Motor Tester Assembler ID - [id number] [facility] CenterGLUCOSE, BODY [id number] 10:58:07 Test Item Value Reference Range Interpretation Comments GLUCOSE, BODY FLUID (BEAKER) (test < mg/dL code = 1528) Absence of reference range indicates that normals have not been defined.Assay performance has not been validated for this type of specimen.Electric Motor Tester Assembler ID - [id number] Acid, [id number] 10:44:25 Test Item Value Reference Range Interpretation Comments Lactate, Art (test code = 1.0 mmol/L 0.5-2.2 2874) RUTHIE (test code = RUTHIE) Electric Motor Tester Assembler ID - REANNA L Lab Interpretation (test Normal code = 05625-8) [facility] CenterLACTIC ACID, [id number] 10:44:25 Test Item Value Reference Range Interpretation Comments LACTATE BLOOD ARTERIAL (2) 1.0 mmol/L 0.5-2.2 (BEAKER) (test code = 2874) Electric Motor Tester Assembler ID - PRIYAAYA LCBC (HEMOGRAM ONLY)2021-02-02 10:40:58 Test Item Value [...] (BEAKER) (test code = 413) PROTEIN, BODY [id number] 10:11:15 Test Item Value Reference Range Interpretation Comments PROTEIN FLUID (BEAKER) (test code = 4.3 g/dL 579) Absence of reference range indicates that normals have not been defined.Assay performance has not been validated for this type of specimen.Electric Motor Tester Assembler ID - [id number], body [id number] 10:11:14 Test Item Value Reference Range Interpretation Comments Protein, Fluid (test 4.2 g/dL code = 2881-1) RUTHIE (test code = Absence of reference RUTHIE) range indicates that normals have not been defined.Assay performance has not been validated for this type of specimen. Electric Motor Tester Assembler ID - [id number] [facility] CenterPROTEIN, BODY [id number] 10:11:14 Test Item Value Reference Range Interpretation Comments PROTEIN FLUID (BEAKER) (test code = 4.2 g/dL 579) Absence of reference range indicates that normals have not been defined.Assay performance has not been validated for this type of specimen.Electric Motor Tester Assembler ID - [id number] [id number] 09:06:33 Test Item Value Reference Range Interpretation Comments Result (test code = 6463-4) No MRSA isolated [facility] CenterMRSA [id number] 09:06:33 Test Item Value Reference Range Interpretation Comments CULTURE (BEAKER) (test code No MRSA isolated = 1095) BLOOD GAS, [id number] 08:58:49 Test Item Value Reference Range Interpretation [...] 1819) 40.0 RAD, CHEST, 1 VIEW, NON [id number] 08:28:00Reason for exam:->s/p intubatedShould this be performed at the bedside?->Yes [facility] 1960 Sex: MFINAL REPORT RAD, CHEST, [...] Paige Seay Verified Date/Time: 02/02/2021 08:28:55 POCT-GLUCOSE [id number] 07:00:33 Test Item Value Reference Range Interpretation Comments POC-GLUCOSE METER 206 mg/dL 70-110 H : TESTED A T [facility] 6720 (BREANNA) (test code = DIONI [place], 1538) [address]: Electric Motor Tester Assembler/Techni bobby ID = [id number] for IH NEHAL CAVAZOS [id number] 04:38:16 Test Item Value Reference Range Interpretation Comments PHOSPHORUS (BREANNA) (test code = 1.1 mg/dL 2.3-4.7 LL 604) Electric Motor Tester Assembler ID - PRIYAAYA [id number] 04:32:23 Test Item Value Reference Range Interpretation Comments MAGNESIUM (BEAKER) (test code = 2.2 mg/dL 1.6-2.6 627) Electric Motor Tester Assembler ID Soo FORTE LCOMPREHENSIVE METABOLIC [id number] 04:32:22 Test Item Value Reference Range Interpretation [...] S NOT APPLICABLE FOR DIALYSIS PATIEN TS. Electric Motor Tester Assembler ID Soo FORTE LHIV-1 Antigen with HIV-1/2 Awlgpmyc5986-15-24 04:08:39 Test Item Value Reference Range Interpretation Comments HIV-1 Antigen with HIV Nonreactive Nonreactive 1&2 Antibody (test code = 14392-2) RUTHIE (test code = RUTHIE) Electric Motor Tester Assembler ID - REANNA L Lab Interpretation (test Normal code = 83524-5) [facility] CenterHIV-1 ANTIGEN WITH HIV-1/2 [id number] 04:08:39 Test Item Value Reference Range Interpretation Comments HIV-1 ANTIGEN WITH HIV 1\\T\\2 Nonreactive Nonreactive ANTIBODY (2) (BEAKER) (test code = 2586) Electric Motor Tester Assembler ID - REANNA LPROTHROMBIN TIME/[id number] 03:41:31 Test Item Value Reference Range Interpretation Comments PROTIME (BEAKER) 17.6 seconds 11.9-14.2 H (test code = 759) INR (BEAKER) (test 1.47 See_Comment [Automat ed message] code = 370) The system [employer] generated this result transmitted ref erence range: <=5.90. The reference range was not used to int erpret this result as normal/abnormal . RECOMMENDED COUMADIN/WARFARIN INR THERAPY RANGESSTANDARD DOSE: 2.0 - 3.0 Includes: PROPHYLAXIS for venous thrombosis, systemic embolization; TREATMENT for venous thrombosis and/or pulmonary embolus.HIGH RISK: Target INR is 2.5-3.5 for patients with mechanical heart valves.BLOOD GAS, [id number] 03:40:52 Test Item Value Reference Range Interpretation [...] (BEAKER) (test code = 1819) 40.0 CALCIUM, [id number] 03:40:09 Test Item Value Reference Range Interpretation Comments CALCIUM IONIZED (BEAKER) (test 1.25 mmol/L 1.12-1.27 code = 698) PH, BLOOD (BEAKER) (test code = 7.51 1810) CBC W/PLT COUNT & AUTO [id number] 03:35:18 Test Item Value Reference Range Interpretation [...] PERCENT (BEAKER) (test code = 2801) POCT-GLUCOSE [id number] 00:03:03 Test Item Value Reference Range Interpretation Comments POC-GLUCOSE METER 257 mg/dL 70-110 H : TESTED A T [facility] 6720 (BEAKER) (test code = DIONI [place]ccull[place], 1538) [address]: Electric Motor Tester Assembler/Techni bobby ID = [id number] for IH NEHAL CAVAZOS [id number] 21:20:12 Test Item Value Reference Range Interpretation Comments PHOSPHORUS (BEAKER) (test code = 2.3 mg/dL 2.3-4.7 604) Electric Motor Tester Assembler ID - CRISTOFER [id number] 21:20:11 Test Item Value Reference Range Interpretation Comments MAGNESIUM (BEAKER) (test code = 2.3 mg/dL 1.6-2.6 627) Electric Motor Tester Assembler ID - CRISTOFER MBASIC METABOLIC [id number] 21:20:10 Test Item Value Reference Range Interpretation [...] S NOT APPLICABLE FOR DIALYSIS PATIEN TS. Electric Motor Tester Assembler ID - CRISTOFER MLACTIC ACID, [id number] 21:19:25 Test Item Value Reference Range Interpretation Comments LACTATE BLOOD ARTERIAL (2) 1.5 mmol/L 0.5-2.2 (BEAKER) (test code = 2874) Electric Motor Tester Assembler JENNIFER [facility] (HEMOGRAM ONLY)2021-02-01 21:04:32 Test Item Value Reference [...] (BEAKER) (test code = 413) BLOOD GAS, [id number] 21:01:35 Test Item Value Reference Range Interpretation [...] 1819) 40.0 Body fluid cell count with [id number] 19:56:05 Test Item Value Reference Range Interpretation Comments Appearance (test code Bloody Clear A = 9335-1) Color (test code = Red Colorless, A 6824-7) Straw RBCs (test code = 687583 See_Comment H [Automate d 11749-8) message] The system which generated this result transmitted reference range : <=1 /cu mm. The reference range was not used to interpret this result as normal/abnormal . Adjusted WBC Count 86581 See_Comment H [Automat ed (test code = 67123-2) messag e] The system which generated this result transmitted reference range : <=5 /cu mm. The reference range was not used to interpret this result as normal/abnormal . Lining Cells (test 0 See_Comment [Automat ed code = 70761-5) message] The system which generated this result transmitted reference range : <=1 /cu mm. The reference range was not used to interpret this result as normal/abnormal . % Segs (test code = 93 % 14128-6) % Lymphs (test code = 2 % 59504-7) % Monos (test code = 5 % 58954-7) % Eos (test code = 0 % 21092-8) % Baso (test code = 0 % 49207-1) Container Body Fluid EDTA Tube (test code = 2873) RUTHIE (test code = RUTHIE) Degenerated cells present. Lab Interpretation Abnormal (test code = 87627-9) [facility] CenterBODY FLUID CELL COUNT WITH [id number] 19:56:05 Test Item Value Reference Range Interpretation Comments APPEARANCE FLUID Bloody Clear A (BEAKER) (test code = 510) COLOR FLUID (BEAKER) Red Colorless, Straw A (test code = 511) RBC FLUID (BEAKER) 135144 /cu mm See_Comment H [Automa tuyet (test code = 513) message] T he system which generated this result transmitted reference range : <=1. The refere nce range was not u sed to interpret th is result as normal/abnormal . ADJUSTED WBC FLUID 61004 /cu mm See_Comment H [Automat ed (BEAKER) [...] code = 2873) Degenerated cells present.LACTIC ACID, [id number] 18:37:43 Test Item Value Reference Range Interpretation Comments LACTATE BLOOD ARTERIAL (2) 3.0 mmol/L 0.5-2.2 H (BEAKER) (test code = 2874) Electric Motor Tester Assembler ID - CRISTOFER MPOCT-GLUCOSE [id number] 18:30:19 Test Item Value Reference Range Interpretation Comments POC-GLUCOSE METER 246 mg/dL 70-110 H : TESTED A T [facility] 6720 (BEAKER) (test code = DIONI Jamel [facility], 1538) [address]: Electric Motor Tester Assembler/Techni bobby ID = [id number] for Filomena davila (contract)Autumn Hemoglobin and [id number] 18:18:53 Test Item Value Reference Range Interpretation [...] = 4544-3) RUTHIE (test code = RUTHIE) Electric Motor Tester Assembler ID - [id number] Lab Interpretation Abnormal (test code = 32592-9) [facility] CenterHEMOGLOBIN AND [id number] 18:18:53 Test Item Value Reference Range Interpretation Comments HEMOGLOBIN (BEAKER) (test code = 8.0 GM/DL 13.7-17.5 L 410) HEMATOCRIT (BEAKER) (test code = 27.2 % 40.1-51.0 L 411) Electric Motor Tester Assembler ID - [id number] FLUID CELL COUNT WITH [id number] 18:09:06 Test Item Value Reference Range Interpretation [...] (BEAKER) (test code = 2873) Amylase Peritoneal [id number] 17:09:06 Test Item Value Reference Range Interpretation Comments AMYLASE, PERITONEAL 78 U/L See Comment FLUID (test code = 7864221) RUTHIE (test code = Amylase activity in RUTHIE) peritoneal fluids of non-pancreatic origin is often less than or equal to the amylase activity in blood, whereas elevated amylase activity has been reported in fluid of pancreatic origin (five-folds or higher compared to contemporaneously collected blood specimen).This test has been modified from the train operations supervisor's instructions and its performance characteristics were determined by [facility]. The laboratory is regulated under CLIA as qualified to perform high-complexity testing. This test has not been cleared or approved by the U.S. Food and Drug Administration. The reference intervals and other method performance specifications are unavailable for amylase in peritoneal fluid. Comparison of this result with the blood amylase is recommended. [facility] Center[facility] PERITONEAL [id number] 17:09:06 Test Item Value Reference Range Interpretation Comments AMYLASE, PERITONEAL FLUID (test code = 78 U/L See Comment 4431672) Amylase activity in peritoneal fluids of non-pancreatic origin is often less than or equal to the amylase activity in blood, whereas elevated amylase activity has been reported in fluid of pancreatic origin (five-folds or higher compared to contemporaneously collected blood specimen).This test has been modified from the train operations supervisor's instructions and its performance characteristics were determined by [facility]. The laboratory is regulated under CLIA as qualified to perform high-complexity testing. This test has not been cleared or approved by the U.S. Food and Drug Administration. The reference intervals and other method performance specifications are unavailable for amylase in peritoneal fluid. Comparison of this result with the blood amylase is recommended.[id number] 17:05:20 Test Item Value Reference Range Interpretation Comments Lipase (test code = 140 U/L 8-78 H 3040-3) RUTHIE (test code = RUTHIE) Electric Motor Tester Assembler ID - CRISTOFER M Lab Interpretation (test Abnormal code = 93693-9) [facility] CenterLIPASE2021-12-23 17:05:20 Test Item Value Reference Range Interpretation Comments LIPASE (BEAKER) (test code = 749) 140 U/L 8-78 H Electric Motor Tester Assembler ID - CRISTOFER GGBCUHGZUQG1639-13-20 16:26:54 Test Item Value Reference Range Interpretation Comments PHOSPHORUS (BEAKER) (test code = 3.7 mg/dL 2.3-4.7 604) Electric Motor Tester Assembler ID - CRISTOFER [id number] 16:26:53 Test Item Value Reference Range Interpretation Comments MAGNESIUM (BEAKER) (test code = 1.9 mg/dL 1.6-2.6 627) Electric Motor Tester Assembler ID - CRISTOFER MCOMPREHENSIVE METABOLIC [id number] 16:26:52 Test Item Value Reference Range Interpretation [...] S NOT APPLICABLE FOR DIALYSIS PATIEN TS. Electric Motor Tester Assembler ID - CRISTOFER Vázquez(CELLAVISION MANUAL DIFF)2021-02-01 16:19:24 Test Item Value Reference [...] CONCENTRATION Adequate (CELLAVISION)(BEAKER) (test code = 3438) Electric Motor Tester Assembler ID - Mariposa Garcia comments: Slide comments:BLOOD [...] 1819) 80.0 CBC W/PLT COUNT & AUTO [id number] 15:56:39 Test Item Value Reference Range Interpretation [...] code = 413) RAD, ABDOMEN/KUB, 1 VIEW [id number] 15:19:00Reason for exam:->s.p NGT [facility] 1960 Sex: MFINAL REPORT RAD, ABDOMEN/KUB, 1 VIEW AP INDICATION: s.p NGT COMPARISON: None TECHNIQUE: Limited portable radiograph of the lower chest and upper abdomen was acquired for purposes of evaluating tube placement FINDINGS/IMPRESSION:NG side-port overlies the stomach Signed: Paige Seay Verified Date/Time: 02/01/2021 15:19:35 Reading Location: [facility] Radiology Reading Room RAD, CHEST, 1 VIEW, NON [id number] 15:14:00Reason for exam:->s/p intubation and decorticationShould this be performed at the bedside?->Yes [facility] 1960 Sex: MFINAL REPORT RAD, CHEST, [...] Seay Verified Date/Time: 02/01/2021 15:14:10 Reading Location: [facility] Radiology Reading Room HGB/HCT (H&H)-Stat [id number] 14:17:23 Test Item Value Reference Range Interpretation Comments Hemoglobin (test code = 8.5 See_Comment L [Au tomated message] 786-4) The system Bleachers generated this result transmitted ref erence range: 13.0 - 1 6.8 GM/DL. The refe rence range was not u sed to interpret this result as normal/abnor mal. Hematocrit (test code = 25.0 % 40.0-50.0 L 4544-3) Lab Interpretation (test Abnormal code = 55676-0) [facility] CenterGlucose-Stat [id number] 14:17:23 Test Item Value Reference Range Interpretation Comments Glucose (test code = 2345-7) 192 mg/dL 70-110 H Lab Interpretation (test code = Abnormal 71372-3) [facility] [id number] 14:17:22 Test Item Value Reference Range Interpretation Comments Sodium (test code = 2951-2) 157 meq/L 136-145 H Lab Interpretation (test code = Abnormal 62791-0) [facility] CenterPotassium-Stat [id number] 14:16:31 Test Item Value Reference Range Interpretation Comments Potassium (test code = 2823-3) 3.7 meq/L 3.6-5.5 Lab Interpretation (test code = Normal 49950-8) [facility] CenterCYTOLOGY2021-12-23 10:41:12Medical Cytology Report Case: [id number] Authorizing Provider: Nila Monroe MD Collected: 01/11 03:01 PM Ordering Location: [place] [address] ICU Received: 01/31/2021 08:36 AM Pathologist: Pina Aaron MD Specimen: Pleural, Left PLEURAL, LEFT, FLUID (CYTOSPINS AND CELL BLOCK): - LIMITED BY OBSCURING ACUTE INFLAMMATION - NEGATIVE FOR MALIGNANCY (SEE COMMENT) Signing Pathologist Direct Phone Line: [phone] signed by Pina Aaron MD on 02/01/2021 at 10:41 AMThe specimen is composed of abundant acute inflammation and fibrin. These findings are compatible with an empyema. The specimen is limited by obscuring inflammation, but no malignant cells are identified. 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 [facility], Department of Pathology, [address] [place] [address], [facility], Department of [facility], [address] [place] [address], [facility], Department of [facility], [address] [place] [address], VIAJHJBXDEORJ METABOLIC [id number] 08:20:55 Test Item Value Reference Range Interpretation [...] S NOT APPLICABLE FOR DIALYSIS PATIEN TS. Electric Motor Tester Assembler ID - CRISTOFER [id number] 08:16:26 Test Item Value Reference Range Interpretation Comments PHOSPHORUS (BEAKER) (test code = 1.8 mg/dL 2.3-4.7 L 604) Electric Motor Tester Assembler ID - CRISTOFER [id number] 08:16:25 Test Item Value Reference Range Interpretation Comments MAGNESIUM (BEAKER) (test code = 1.8 mg/dL 1.6-2.6 627) Electric Motor Tester Assembler ID - CRISTOFER MCBC (HEMOGRAM ONLY)2021-02-01 07:53:16 [...] 0-0 (BEAKER) (test code = 413) POCT-GLUCOSE [id number] 07:06:58 Test Item Value Reference Range Interpretation Comments POC-GLUCOSE METER 150 mg/dL 70-110 H : TESTED A T [facility] 6720 (BREANNA) (test code = [place], 1538) [address]: Electric Motor Tester Assembler/Techni bobby ID = [id number] for HAL DON SARS-COV2/RT-PCR ([facility])2021-02-01 06:34:11 Test Item Value Reference Range Interpretation Comments SARS-COV2/RT-PCR (test code = Negative Negative 1509767) Negative result for this test determines that [...] 564(g) of the Act.Testing was performed using Knock Knock SARS-CoV-2 assay.Fact Sheet for Healthcare Providers:https://www.molecular.johnson/herminio/RT SARS-CoV-2 HCP Fact Sheet 51- 429855.pdfFact Sheet for Healthcare Patients:https://www.molecular.johnson/herminio/RT SARS-CoV-2 Patient Fact Sheet EN 51-047902N7.pdfPrepare aauice6717-47-11 06:32:00 Test Item Value Reference Range Interpretation Comments Unit ABO (test code = 6656394) O Pos UNIT NUMBER (test code = 934-0) [id number] Status (test code = 4588264) READY Blood Bank Product (test code = FFP 2263) PRODUCT CODE (test code = Z9387A20 933-2) [facility] CenterPHOSPHORUS2021-12-23 06:08:46 Test Item Value Reference Range Interpretation Comments PHOSPHORUS (BEAKER) (test code = 1.2 mg/dL 2.3-4.7 LL 604) Electric Motor Tester Assembler ID - CRISTOFER MCOMPREHENSIVE METABOLIC [id number] 06:06:58 Test Item Value Reference Range Interpretation [...] S NOT APPLICABLE FOR DIALYSIS PATIEN TS. Electric Motor Tester Assembler ID - CRISTOFER [id number] 06:02:11 Test Item Value Reference Range Interpretation Comments MAGNESIUM (BEAKER) (test code = 1.2 mg/dL 1.6-2.6 L 627) Electric Motor Tester Assembler ID - CRISTOFER MCALCIUM, [id number] 05:19:54 Test Item Value Reference Range Interpretation Comments CALCIUM IONIZED (BEAKER) (test 1.29 mmol/L 1.12-1.27 H code = 698) PH, BLOOD (BEAKER) (test code = 7.41 1810) BLOOD GAS, [id number] 05:19:43 Test Item Value Reference Range Interpretation [...] 1819) 60.0 CBC W/PLT COUNT & AUTO [id number] 04:58:01 Test Item Value Reference Range Interpretation [...] H PERCENT (BEAKER) (test code = 2801) [id number] 04:16:43 Test Item Value Reference Range Interpretation Comments PARTIAL THROMBOPLASTIN TIME 32.2 seconds 22.5-36.0 (BEAKER) (test code = 760) PROTHROMBIN TIME/[id number] 04:16:01 Test Item Value Reference Range Interpretation Comments PROTIME (BEAKER) 19.5 seconds 11.9-14.2 H (test code = 759) INR (BEAKER) (test 1.68 See_Comment [Automat ed message] code = 370) The system Bleachers generated this result transmitted ref erence range: <=5.90. The reference range was not used to int erpret this result as normal/abnormal . RECOMMENDED COUMADIN/WARFARIN INR THERAPY RANGESSTANDARD DOSE: 2.0 - 3.0 Includes: PROPHYLAXIS for venous thrombosis, systemic embolization; TREATMENT for venous thrombosis and/or pulmonary embolus.HIGH RISK: Target INR is 2.5-3.5 for patients with mechanical heart valves.PROTHROMBIN TIME/[id number] 04:15:45 Test Item Value Reference Range Interpretation Comments PROTIME (BEAKER) 20.6 seconds 11.9-14.2 H (test code = 759) INR (BEAKER) (test 1.79 See_Comment [Automat ed message] code = 370) The system Bleachers generated this result transmitted ref erence range: <=5.90. The reference range was not used to int erpret this result as normal/abnormal . RECOMMENDED COUMADIN/WARFARIN INR THERAPY RANGESSTANDARD DOSE: 2.0 - 3.0 Includes: PROPHYLAXIS for venous thrombosis, systemic embolization; TREATMENT for venous thrombosis and/or pulmonary embolus.HIGH RISK: Target INR is 2.5-3.5 for patients with mechanical heart valves.POCT-GLUCOSE [id number] 00:49:31 Test Item Value Reference Range Interpretation Comments POC-GLUCOSE METER 201 mg/dL 70-110 H : TESTED A T [facility] 6720 (BEAKER) (test code = [place], 1538) [address]: Electric Motor Tester Assembler/Techni bobby ID = [id number] for DA VISHAL Type and screen, [id number] 22:31:00 Test Item Value Reference Range Interpretation Comments ABO/RH AUTOMATED (BEAKER) (test O NEGATIVE code = 2260) Ab Scrn (test code = 890-4) NEGATIVE [facility], [id number] 22:03:00 Test Item Value Reference Range Interpretation Comments ABO Grouping (test code = 2588) O Rh Factor (test code = 2589) NEG [facility]PO[facility] [id number] 21:39:59 Test Item Value Reference Range Interpretation Comments POC-GLUCOSE METER 164 mg/dL 70-110 H : TESTED A T [facility] 6720 (BEAKER) (test code = [employer] [place], [address]) [address]: Electric Motor Tester Assembler/Techni bobby ID = [id number] for Wa lker -POWELL, RIN A POCT-GLUCOSE [id number] 21:31:37 Test Item Value Reference Range Interpretation Comments POC-GLUCOSE METER 163 mg/dL 70-110 H : TESTED A T [facility] 6720 (BEAKER) (test code = [facility], 1538) [address]: Electric Motor Tester Assembler/Techni bobby ID = [id number] for Desiree garber (contract), Reina xis Blood Culture Panel([employer])2021-01-31 20:53:56 Test Item Value Reference Interpretation Comments Range LISTERIA MONOCYTOGENES Not detected Not detected (test code = 74945-6) STAPHYLOCOCCUS (test Not detected Not detected code = 40131-7) STAPHYLOCOCCUS AUREUS Not detected Not detected (test code = 39937-3) Streptococcus (test Not detected Not detected code = 11304-8) STREPTOCOCCUS Not detected Not detected AGALACTIAE (GROUP B) (test code = 92387-5) STREPTOCOCCUS Not detected Not detected PNEUMONIAE (test code = 38963-1) Streptococcus pyogenes Not detected Not detected (Group A) (test code = 36644-5) ACINETOBACTER Not detected Not detected BAUMANNII (test code = 28071-4) HAEMOPHILUS INFLUENZAE Not detected Not detected (test code = 86780-5) NEISSERIA MENINGITIDIS Not detected Not detected (test code = 57621-4) ENTEROBACTERIACEAE Not detected Not detected (test code = 54442-8) ENTEROBACTER CLOACOE Not detected Not detected COMPLEX (test code = 69850-5) KLEBSIELLA OXYTOCA Not detected Not detected (test code = 82878-4) KLEBSIELLA PNEUMONIAE Not detected Not detected (test code = 85055-1) PROTEUS (test code = Not detected Not detected 18648-6) SERRATIA MARCESCENS Not detected Not detected (test code = 49770-7) JANETH ALBICANS (test Detected Not detected A First line therapy: code = 81663-3) MicafunginDe -escala te based on susceptibilitie s when patient is clinically improvingID and Ophthalmologic consultations strongly recommended Reference Range : Not Detected JANETH GLABRATA (test Not detected Not detected code = 64470-8) JANETH KRUSEI (test Not detected Not detected code = 24665-8) JANETH PARAPSILOSIS Not detected Not detected (test code = 70564-7) JANETH TROPICALIS Not detected Not detected (test code = 43861-9) ESCHERICHIA COLI (test Not detected Not detected code = 57834-2) METHICILLIN-RESISTANCE GENE (test code = 12531-3) VANCOMYCIN-RESISTANCE GENE (test code = 82698-4) CARBAPENEM-RESISTANCE GENE (test code = 33867-0) ENTEROCOCCUS (test Not detected Not detected code = 44343-0) PSEUDOMONAS AERUGINOSA Not detected Not detected (test code = 57635-9) RUTHIE (test code = RUTHIE) Other bacteria [...] [facility] Molecular Diagnostics Laboratory using the [employer] Blood Culture ID Panel. It is FDA cleared and has been verified and approved by the [facility] Molecular Diagnostics Laboratory for clinical use. This laboratory is CLIA-certified and [employer] of [employer] (CAP)-accredited to perform high complexity testing. Lab Interpretation Abnormal (test code = 53883-0) [facility] CenterBLOOD CULTURE IDENTIFICATION [id number] 20:53:56 Test Item Value Reference Interpretation Comments Range LISTERIA MONOCYTOGENES Not detected Not detected (test code = 5307724) STAPHYLOCOCCUS (test Not detected Not detected code = 6113868) STAPHYLOCOCCUS AUREUS Not detected Not detected (test code = 6120454) STREPTOCOCCUS (test Not detected Not detected code = 3575831) STREPTOCOCCUS Not detected Not detected AGALACTIAE (GROUP B) (test code = 8878277) STREPTOCOCCUS Not detected Not detected PNEUMONIAE (test code = 0450180) STREPTOCOCCUS PYOGENES Not detected Not detected (GROUP A) (test code = 0003766) ACINETOBACTER BAUMANNII Not detected Not detected (test code = 8383668) HAEMOPHILUS INFLUENZAE Not detected Not detected (test code = 4348371) NEISSERIA MENINGITIDIS Not detected Not detected (test code = 7770432) ENTEROBACTERIACEAE Not detected Not detected (test code = 1999154) ENTEROBACTER CLOACOE Not detected Not detected COMPLEX (test code = 0080208) KLEBSIELLA OXYTOCA Not detected Not detected (test code = 5651508) KLEBSIELLA PNEUMONIAE Not detected Not detected (test code = 1650) PROTEUS (test code = Not detected Not detected 2114394) SERRATIA MARCESCENS Not detected Not detected (test code = 9768586) JANETH ALBICANS (test Detected Not detected A First line therapy: code = 8977455) MicafunginDe -escalat e based on susceptibilitie s when patient is clinically improvingID and Ophthalmologic consultations strongly recomm ended Reference Range : Not Detected JANETH GLABRATA (test Not detected Not detected code = 7882404) JANETH KRUSEI (test Not detected Not detected code = 3900402) JANETH PARAPSILOSIS Not detected Not detected (test code = 7956188) JANETH TROPICALIS Not detected Not detected (test code = 3951985) ESCHERICHIA COLI (test Not detected Not detected code = 2725005) METHICILLIN-RESISTANCE GENE (test code = 7263238) VANCOMYCIN-RESISTANCE GENE (test code = 1306837) CARBAPENEM-RESISTANCE GENE (test code = 0786687) ENTEROCOCCUS-BEAKER Not detected Not detected (test code = 8653418) PSEUDOMONAS Not detected Not detected AERUGINOSA-BEAKER (test code = 6154627) Other bacteria and resistance markers not targeted by this PCR panel cannot be excluded; therefore clinical correlation and follow up of serology, culture results, and other molecular studies is required. The results are not intended to be used as the sole means for clinical diagnosis or patient management decisions. This sample was tested at the [facility] Molecular Diagnostics Laboratory using the [employer] Blood Culture ID Panel. It is FDA cleared and has been verified and approved by the [facility] Molecular Diagnostics Laboratory for clinical use. This laboratory is CLIA-certified and College ofAmerican Pathologists (CAP)-accredited to perform high complexity testing.U/S, ABDOMINAL, [id number] 17:16:00Abdomen limited area? Add comment if clarification is needed.->LiverReason for exam:->r/o cirrhosis [facility] 1960 Sex: MFINAL REPORT Abdominal ultrasound [...] Doppler(No Doppler)2021-01-31 16:39:59Ejection FractionSLEH ECHO HEARTLAB MKCKESSON CPACHI [facility] HospitalLegionella antigen, [id number] 16:20:02 Test Item Value Reference Range Interpretation Comments Legionella Urine Negative - see Negative for L. Antigen (test code comment pneumophi la = 69057-8) serogroup 1 ant igen, suggesting no r ecent or current infe ction with this serog roup. Legionellosis c annot be ruled out si nce other serogroup s and species may cau se disease. [facility] CenterLEGIONELLA ANTIGEN, [id number] 16:20:02 Test Item Value Reference Range Interpretation Comments L. PNEUMOPHILA Negative - see Negative fo r L. SEROGP 1 UR AG comment pneumophila (BREANNA) (test code serogrou p 1 antigen, = 1156) suggesting no r ecent or current infe ction with this serog roup. Legionellosis c annot be ruled out si nce other serogroup s and species may cau se disease. Hepatitis C PCR, [id number] 15:10:14 Test Item Value Reference Range Interpretation Comments HCV PCR, Quantitative 7272851 See_Comment H [Auto mated (test code = 34751-9) messag e] The system which generated this result transmitted reference range : <15 IU/mL. The reference range was not used to interpret this result as normal/abnormal . RUTHIE (test code = RUTHIE) This test uses a Real-Time Polymerase Chain Reaction (RT-PCR) methodology and was performed using VERNA Ampliprep/VERNA TaqMan HCV test kit version 2.0 ([employer] Reportable range for this assay is 15 - 100,000,000 IU per mL (1.18 - 8.00 Log IU/mL). Lab Interpretation Abnormal (test code = 00054-5) [facility] CenterHEPATITIS C PCR, [id number] 15:10:14 Test Item Value Reference Range Interpretation Comments HCV NUMERIC RESULT (MORROAKER) 5680953 IU/mL <15 H (test code = 2700) This test uses a Real-Time Polymerase Chain Reaction (RT-PCR) methodology and was performed using VERNA Ampliprep/VERNA TaqMan HCV test kit version 2.0 ([employer]Reportable range for this assay is 15 - 100,000,000 IU per mL (1.18 - 8.00 Log IU/mL).CT, CHEST, WITH [id number] 12:46:00 Unlisted Reason for Exam - Click Yes and Enter Reason Below->No [facility] 1960 Sex: MFINAL REPORT TECHNIQUE: CT [...] right common femoral vein. Signed: Jose Bright MDReport Verified Date/Time: 01/31/2021 12:46:41 CT, [id number] 12:46:00Unlisted Reason for Exam - Click Yes and Enter Reason Below->NoIs this for enterography?->NoWill this procedure require oral contrast?->No [facility] 1960 Sex: MFINAL REPORT TECHNIQUE: CT [...] right common femoral vein. Signed: Jose Bright MDReport Verified Date/Time: 01/31/2021 12:46:41 POCT-GLUCOSE [id number] 12:42:10 Test Item Value Reference Range Interpretation Comments POC-GLUCOSE METER 159 mg/dL 70-110 H : TESTED A T [facility] 6720 (BEAKER) (test code = [place], 1538) [address]: Electric Motor Tester Assembler/Techni bobby ID = [id number] for Desiree garber (contract), Reina xis CT, BRAIN, WITHOUT [id number] 11:40:00Unlisted Reason for Exam - Click Yes and Enter Reason Below->No [facility] 1960 Sex: MFINAL REPORT CT, BRAIN, [...] is recommended for further characterization. Signed: JR Michael, Raman Zarate Verified Date/Time: 01/31/2021 11:40:21 Reading Location: [facility] C013V Neuro Reading Room LACTIC ACID, [id number] 11:06:55 Test Item Value Reference Range Interpretation Comments LACTATE BLOOD 0.9 mmol/L 0.5-2.2 Specimen sligh tly ARTERIAL (2) (BEAKER) hemoly zed (test code = 2874) Electric Motor Tester Assembler ID - REANNA VQvmpqhf2161-59-57 10:54:47 Test Item Value Reference Range Interpretation Comments Ammonia (test code = 30 See_Comment [Autom ated 10526-4) message] The system which generated this result transmit tuyet reference range : 18 - 72 mol/L . The reference range was not u sed to interpret th is result as normal/abnormal . RUTHIE (test code = RUTHIE) Electric Motor Tester Assembler ID - CRISTOFER M Lab Interpretation Normal (test code = 75958-1) [facility] CenterAMMONIA2021-12-22 10:54:47 Test Item Value Reference Range Interpretation Comments AMMONIA (BEAKER) (test code = 348) 30 mol/L 18-72 Electric Motor Tester Assembler ID - CRISTOFER MLactate dehydrogenase (LDH)2021-01-31 10:30:23 Test Item Value Reference Range Interpretation Comments LDH (test code = 2532-0) 305 U/L 125-220 H RUTHIE (test code = RUTHIE) Electric Motor Tester Assembler ID - PRIYAZEKE L Lab Interpretation (test Abnormal code = 10920-2) [facility] CenterLACTATE DEHYDROGENASE (LDH)2021-01-31 10:30:23 Test Item Value Reference Range Interpretation Comments LACTATE DEHYDROGENASE (BEAKER) (test 305 U/L 125-220 H code = 635) Electric Motor Tester Assembler ID - REANNA LTSH/Free T4 If [id number] 10:07:49 Test Item Value Reference Range Interpretation Comments TSH (test code = 2.329 See_Comment [Automated 02172-6) message] The system which generated this result transmit tuyet reference range : 0.350 - 4.940 uIU/mL. The reference range was not used to interpret this result as normal/abnormal . RUTHIE (test code = RUTHIE) Electric Motor Tester Assembler ID - REANNA L Lab Interpretation Normal (test code = 82115-3) [facility] CenterTSH/FREE T4 IF [id number] 10:07:49 Test Item Value Reference Range Interpretation Comments THYROID STIMULATING HORMONE 2.329 uIU/mL 0.350-4.940 (BEAKER) (test code = 772) Electric Motor Tester Assembler ID - REANNA LLactate dehydrogenase (LDH), body [id number] 10:01:45 Test Item Value Reference Range Interpretation Comments LDH, Fluid (test 3170 U/L code = 41828-3) RUTHIE (test code = Absence of reference RUTHIE) range indicates that normals have not been defined.Assay performance has not been validated for this type of specimen. Electric Motor Tester Assembler ID - JOSE L [facility]RA[facility]CT[facility]DR[facility]SE (LDH), BODY [id number] 10:01:45 Test Item Value Reference Range Interpretation Comments LACTATE DEHYDROGENASE FLUID (BEAKER) 3170 U/L (test code = 634) Absence of reference range indicates that normals have not been defined.Assay performance has not been validated for this type of specimen.Electric Motor Tester Assembler ID - JOSE LPROTEIN, BODY [id number] 09:44:03 Test Item Value Reference Range Interpretation Comments PROTEIN FLUID (BEAKER) (test code = 4.3 g/dL 579) Absence of reference range indicates that normals have not been defined.Assay performance has not been validated for this type of specimen.Electric Motor Tester Assembler ID - JOSE LGLUCOSE, BODY [id number] 09:43:43 Test Item Value Reference Range Interpretation Comments GLUCOSE, BODY FLUID (BEAKER) (test < mg/dL code = 1528) Absence of reference range indicates that normals have not been defined.Assay performance has not been validated for this type of specimen.Electric Motor Tester Assembler ID - JOSE LAmylase, body [id number] 09:41:40 Test Item Value Reference Range Interpretation Comments Amylase, Fluid (test 70 U/L code = 1795-4) RUTHIE (test code = Absence of reference RUTHIE) range indicates that normals have not been defined.Assay performance has not been validated for this type of specimen. Electric Motor Tester Assembler ID - JOSE L [facility] CenterAMYLASE, BODY [id number] 09:41:40 Test Item Value Reference Range Interpretation Comments AMYLASE FLUID (BEAKER) (test code = 70 U/L 350) Absence of reference range indicates that normals have not been defined.Assay performance has not been validated for this type of specimen.Electric Motor Tester Assembler ID - DSMACI ABDOMEN/KUB, 1 VIEW [id number] 09:36:00Reason for exam:- >abdominal distention [facility] 1960 Sex: MFINAL REPORT RAD, ABDOMEN/KUB, [...] free air is identified. Signed: Paige Seay [facility] Verified Date/Time: 01/31/2021 09:36:34 Reading Loca tion: [facility] Reading Room Electronically signed by: PAIGE SEAY MD on01/31/2021 09:36 AMRAD, ABDOMEN/KUB, 1 VIEW AP 2021-01-31 09:29:00Reason for exam:->Enteric tube placement verification [facility] : 1960 Sex: MFINAL REPORT RAD, ABDOMEN/KUB, 1 VIEW AP INDICATION: Enteric tube placement verification COMPARISON: None TECHNIQUE: Limited portable radiograph of the lower chest and upper abdomen was acquired for purposes of evaluating tube placement FINDINGS/IMPRESSION:NG side-port overlies the stomach Signed: Paige Seayort Verified Date/Time: 01/31/2021 09:29:57 Reading Location: [facility] Radiology Reading Room Hemoglobin [id number] 09:10:35 Test Item Value Reference Range Interpretation Comments Hemoglobin A1C (test code = 4548-4) 7.6 % 4.3-6.1 H Lab Interpretation (test code = Abnormal 74257-7) [facility] CenterHEMOGLOBIN [id number] 09:10:35 Test Item Value Reference Range Interpretation Comments HEMOGLOBIN A1C (BEAKER) (test code = 7.6 % 4.3-6.1 H 368) RAD, CHEST, 1 VIEW, NON [id number] 08:07:00Reason for exam:->s/p thoracentesis w/ recent dx SLADE mass and current pneumoniaShould this be perf ormed at the bedside?->Yes [facility] 1960 Sex: MFINAL REPORT RAD, CHEST, 1 VIEW, NON DEPT INDICATION: 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 Heart and mediastinum: Partially obscured by adjacent airspace and pleural disease Additional findings: None. Signed: Paige Seay Verified Date/Time: 01/31/2021 08:07:04 Reading Location: [facility] Radiology Reading Room POCT-GLUCOSE [id number] 06:23:15 Test Item Value Reference Range Interpretation Comments POC-GLUCOSE METER 168 mg/dL 70-110 H : TESTED A T [facility] 6720 (BEAKER) (test code = DION[place], 1538) [address]: Electric Motor Tester Assembler/Techni bobby ID = [id number] for HAL DON [id number] 05:01:06 Test Item Value Reference Range Interpretation Comments MAGNESIUM (BEAKER) (test code = 1.5 mg/dL 1.6-2.6 L 627) Electric Motor Tester Assembler ID - CRISTOFER M(CELLAVISION MANUAL DIFF)2021-01-31 03:58:20 Test Item Value Reference [...] CONCENTRATION Adequate (CELLAVISION)(BEAKER) (test code = 3438) Electric Motor Tester Assembler ID - Guanako Sung comments: Slide comments:CBC W/PLT COUNT & AUTO [id number] 03:58:19 Test Item Value Reference Range Interpretation [...] 0-0 (BEAKER) (test code = 413) Lipid [id number] 03:31:19 Test Item Value Reference Range Interpretation Comments Triglycerides (test 145 mg/dL code = 2571-8) Cholesterol (test code 69 mg/dL = 2093-3) HDL (test code = 12 mg/dL 2085-9) LDL Calculated (test 28 mg/dL code = 15540-8) RUTHIE (test code = RUTHIE) Triglyceride Reference Range: Low Risk <150 Borderline 150-199 High Risk 200-499 Very High Risk >=500 Cholesterol Reference Range: Low Risk <200 Borderline 200-239 High Risk >240 HDL Cholesterol Reference Range: Low Risk >=60 High Risk <40 LDL Cholesterol Reference Range: Optimal <100 Near Optimal 100-129 Borderline 130-159 High 160-189 Very High >=190 Electric Motor Tester Assembler JENNIFER Reese [facility] CenterLIPID [id number] 03:31:19 Test Item Value Reference Range Interpretation [...] Borderline 130-159 High 160-189 Very High >=190 Electric Motor Tester Assembler JENNIFER - REANNA LCOMPREHENSIVE METABOLIC [id number] 03:31:18 Test Item Value Reference Range Interpretation [...] S NOT APPLICABLE FOR DIALYSIS PATIEN TS. Electric Motor Tester Assembler ID - PIAYA [id number] 03:31:18 Test Item Value Reference Range Interpretation Comments PHOSPHORUS (BEAKER) (test code = 1.7 mg/dL 2.3-4.7 L 604) Electric Motor Tester Assembler ID - PIZEKE LPROTHROMBIN TIME/[id number] 03:30:13 Test Item Value Reference Range Interpretation Comments PROTIME (BEAKER) 15.7 seconds 11.9-14.2 H (test code = 759) INR (BEAKER) (test 1.27 See_Comment [Automat ed message] code = 370) The system Bleachers generated this result transmitted ref erence range: <=5.90. The reference range was not used to int erpret this result as normal/abnormal . RECOMMENDED COUMADIN/WARFARIN INR THERAPY RANGESSTANDARD DOSE: 2.0 - 3.0 Includes: PROPHYLAXIS for venous thrombosis, systemic embolization; TREATMENT for venous thrombosis and/or pulmonary embolus.HIGH RISK: Target INR is 2.5-3.5 for patients with mechanical heart valves.BLOOD GAS, [id number] 03:20:33 Test Item Value Reference Range Interpretation Comments PH ARTERIAL (BEAKER) (test code = 7.39 7.35-7.45 383) PCO2 ARTERIAL (BEAKER) (test code 48 mm Hg 35-45 H = 384) PO2 ARTERIAL (BEAKER) (test code = 130 mm Hg 80-90 H 385) O2 SATURATION ARTERIAL (BEAKER) 98.4 % 96.0-97.0 H (test code = 386) HCO3 ARTERIAL (BEAKER) (test code 28 mmol/L 21-29 = 388) BASE EXCESS ARTERIAL (BEAKER) 3.2 mmol/L -2.0-3.0 H (test code = 387) PATIENT TEMPERATURE (BEAKER) (test 38.0 code = 1818) FIO2 (BEAKER) (test code = 1819) 80.0 CALCIUM, [id number] 03:18:29 Test Item Value Reference Range Interpretation Comments CALCIUM IONIZED (BEAKER) (test 1.26 mmol/L 1.12-1.27 code = 698) PH, BLOOD (BEAKER) (test code = 7.41 1810) POCT-GLUCOSE [id number] 00:03:56 Test Item Value Reference Range Interpretation Comments POC-GLUCOSE METER 145 mg/dL 70-110 H : TESTED A T [facility] 6720 (BEAKER) (test code = [place], 1538) [address]: Electric Motor Tester Assembler/Techni bobby ID = [id number] for HAL DON Lactic acid, [id number] 18:26:32 Test Item Value Reference Range Interpretation Comments Lactate, Venous (test code = 1.19 mmol/L 0.50-2.20 2732) RUTHIE (test code = RUTHIE) Electric Motor Tester Assembler ID - BS Lab Interpretation (test Normal code = 86080-2) [facility] CenterLACTIC ACID, [id number] 18:26:32 Test Item Value Reference Range Interpretation Comments LACTATE BLOOD VENOUS (2) (BEAKER) 1.19 mmol/L 0.50-2.20 (test code = 2872) Electric Motor Tester Assembler ID - BSPOCT-GLUCOSE [id number] 18:17:46 Test Item Value Reference Range Interpretation Comments POC-GLUCOSE METER 173 mg/dL 70-110 H : [facility] (BEAKER) (test code = [place], 1538) [address]: Electric Motor Tester Assembler/Techni bobby ID = [id number] for FABRICIO SRIVASTAVA BODY FLUID CELL COUNT WITH [id number] 17:41:46 Test Item Value Reference Range Interpretation [...] result as normal/abnormal . ADJUSTED WBC FLUID 73394 /cu mm See_Comment H [Automat ed (BEAKER) [...] 230 U/L 125-220 H code = 635) Electric Motor Tester Assembler ID - CRISTOFER [id number] 15:59:40 Test Item Value Reference Range Interpretation Comments Amylase (test code = 122 U/L 25-125 1798-8) RUTHIE (test code = RUTHIE) Electric Motor Tester Assembler ID - CRISTOFER M Lab Interpretation (test Normal code = 38622-4) [facility] CenterAMYLASE2021-12-21 15:59:40 Test Item Value Reference Range Interpretation Comments AMYLASE (BEAKER) (test code = 349) 122 U/L 25-125 Electric Motor Tester Assembler ID - CRISTOFER MVancomycin level, [id number] 15:59:39 Test Item Value Reference Range Interpretation Comments Vancomycin Rm (test 12.8 ug/mL code = 57426-6) RUTHIE (test code = Reference Range: No RUTHIE) NormalsOperator ID - CRISTOFER M [facility] CenterVANCOMYCIN LEVEL, [id number] 15:59:39 Test Item Value Reference Range Interpretation Comments VANCOMYCIN RANDOM (BEAKER) (test 12.8 ug/mL code = 523) Reference Range: No NormalsOperator ID - CRISTOFER MLACTIC ACID, [id number] 15:49:57 Test Item Value Reference Range Interpretation Comments LACTATE BLOOD VENOUS 1.25 mmol/L 0.50-2.20 Specime n slightly (2) (BEAKER) (test hemolyzed code = 2872) Electric Motor Tester Assembler ID - CRISTOFER MRAD, CHEST, 1 VIEW, NON [id number] 15:42:00Reason for exam:->s/p L thoracentesisShould this be performed at the bedside?->Yes [facility] : 1960 Sex: MFINAL REPORT RAD, CHEST, 1 VIEW, NON DEPT INDICATION: s/p L thoracentesis COMPARISON: Prior day's exam FINDINGS: Portable frontal view of the chest. IMPRESSION: Support Lines: Overlying leadsLungs and pleura: Decreased left effusion No significant pneumothorax. Heart and mediastinum: Partially obscured by adjacent airspace and pleural disease Additional findings: None. Signed: Paige Seay MDReport Verified Date/Time: 01/30/2021 15:42:27 Reading Location: [facility] Radiology Reading Room BLOOD GAS, [id number] 15:33:41 Test Item Value Reference Range Interpretation [...] (test code = 1819) 44.0 Respiratory Panel [id number] 15:19:05 Test Item Value Reference Range Interpretation Comments Human Metapneumovirus Not detected Not detected, (test code = 19760-8) Equivocal Rhinovirus (test code = Not detected Not detected, 51978-8) Equivocal INFLUENZA A (NO Not detected Not detected, SUBTYPE) (test code = Equivocal 70494-9) Influenza A subtype H1 (test code = 00079-4) Influenza A Subtype H3 (test code = 45725-8) Influenza A Subtype H1-2009 (test code = 24054-4) Influenza B (test code Not detected Not detected, = 21441-7) Equivocal Respiratory Syncytial Not detected Not detected, Virus (test code = Equivocal 38349-8) Parainfluenza Virus 1 Not detected Not detected, (test code = 55013-0) Equivocal Parainfluenza Virus 2 Not detected Not detected, (test code = 55478-1) Equivocal Parainfluenza virus 3 Not detected Not detected, (test code = 49564-2) Equivocal Parainfluenza Virus 4 Not detected Not detected, (test code = 86443-2) Equivocal Adenovirus (test code = Not detected Not detected, 43752-5) Equivocal Coronavirus 229E (test Not detected Not detected, code = 72303-8) Equivocal Coronavirus HKU1 (test Not detected Not detected, code = 47661-9) Equivocal Coronavirus NL63 (test Not detected Not detected, code = 14414-1) Equivocal Coronavirus OC43 (test Not detected Not detected, code = 04758-1) Equivocal Bordetella Pertussis Not detected Not detected, (test code = 29059-9) Equivocal Chlamydophila Not detected Not detected, Pneumoniae (test code = Equivocal 48924-0) Mycoplasma Pneumoniae Not detected Not detected, (test code = 57972-5) Equivocal RUTHIE (test code = RUTHIE) Other [...] [facility] Molecular Diagnostics Laboratory using the SalesWarpArray Respiratory Panel. It is FDA cleared and has been verified and approved by the [facility] Molecular Diagnostics Laboratory for clinical use on nasopharyngeal swab specimens. The performance of the FilmArray RP has not been established in individuals who received influenza vaccine. Recent administration of a nasal influenza vaccine may cause false positive results for Influenza A and/orInfluenza B. [facility] CenterRESPIRATORY PANEL [id number] 15:19:05 Test Item Value Reference Range Interpretation [...] MEDICAL [facility]ENTER Molecular Diagnostics Laboratory using the SalesWarpArray Respiratory Panel. It is FDA cleared and has been verified and approved by the [facility] Molecular Diagnostics Laboratory for clinical use on nasopharyngeal swab specimens.The performance of the FilmArrayRP has not been established in individuals who received influenza vaccine. Recent administration of a nasal influenza vaccine may cause false positive results for Influenza A and/orInfluenza B.Strep pneumoniae [id number] 15:07:26 Test Item Value Reference Range Interpretation Comments Strep pneumoniae Presumptive negative Presumptive Antigen (test code = [place] [address]-1) pneumonia - see pneumococcal comment pneumonia - [...] test. Lab Interpretation Normal (test code = 14134-5) [facility] PNEUM[facility] [id number] 15:07:26 Test Item Value Reference Range Interpretation [...] detection limit of the test. LEGIONELLA ANTIGEN, [id number] 15:06:54 Test Item Value Reference Range Interpretation [...] 16 pg/ml See_Comment [Automa tuyet code = 38168-4) message] The system which generated this result transmitted reference range : <=35. The reference range was not used to interpret this result as normal/abnormal . RUTIHE (test code = Electric Motor Tester Assembler ID - CRISTOFER RUTHIE) [employer] SUPERVIS[employer] STAT High Sensitivity Troponin-I results should be used in conjunction with other diagnostic information such as ECG, clinical observations and information, and patient symptoms to aid in the diagnosis of IA. Lab Interpretation Normal (test code = 26003-1) [facility] CenterHIGH SENSITIVITY TROPONIN [id number] 14:23:12 Test Item Value Reference Range Interpretation Comments HIGH SENSITIVITY 16 pg/ml See_Comment [Automated message] TROPONIN I (test code = The system which 9290941) generated this result transmitted ref erence range: <=35. Th e reference range was not used to int erpret this result as normal/abnormal . Electric Motor Tester Assembler ID - CRISTOFER [employer] SUPERVISOR [employer] STAT High Sensitivity Troponin-I results should be used in conjunction with other diagnostic information such as ECG, clinical observations and information, and patient symptoms to aid in the diagnosis of IA.(CELLAVISION MANUAL DIFF)2021-01-30 14:17:23 Test Item Value Reference [...] CONCENTRATION Adequate (CELLAVISION)(BEAKER) (test code = 3438) Electric Motor Tester Assembler ID - Esvin Quiroz comments: Slide comments:CBC W/PLT COUNT & AUTO [id number] 14:17:22 Test Item Value Reference Range Interpretation [...] 0-0 (BEAKER) (test code = 413) PROTHROMBIN TIME/[id number] 14:16:32 Test Item Value Reference Range Interpretation Comments PROTIME (BEAKER) 14.4 seconds 11.9-14.2 H (test code = 759) INR (BEAKER) (test 1.14 See_Comment [Automat ed message] code = 370) The system Bleachers generated this result transmitted ref erence range: <=5.90. The reference range was not used to int erpret this result as normal/abnormal . RECOMMENDED COUMADIN/WARFARIN INR THERAPY RANGESSTANDARD DOSE: 2.0 - 3.0 Includes: PROPHYLAXIS for venous thrombosis, systemic embolization; TREATMENT for venous thrombosis and/or pulmonary embolus.HIGH RISK: Target INR is 2.5-3.5 for patients with mechanical heart valves.VITAMIN B12 AND [id number] 14:13:30 Test Item Value Reference Range Interpretation Comments VITAMIN B12 (BEAKER) 554 pg/mL 213-816 (test code = 774) FOLATE (BEAKER) 5.40 ng/mL See_Comment L [Automated message] (test code = 362) The system which generated this result transmitted ref erence range: >=7.00. The reference range was not used to interpr et this result as normal/abnormal . Electric Motor Tester Assembler ID - CRISTOFER MTSH/FREE T4 IF [id number] 14:13:29 Test Item Value Reference Range Interpretation Comments THYROID STIMULATING HORMONE 0.751 uIU/mL 0.350-4.940 (BEAKER) (test code = 772) Electric Motor Tester Assembler ID - CRISTOFER MRAD, CHEST, 1 VIEW, NON [id number] 13:43:00Reason for exam:->evaluate PNA [facility] 1960 Sex: MFINAL REPORT INDICATION: evaluate PNA COMPARISON: None TECHNIQUE: Single frontal view of the chest. FINDINGS: Lungs and pleura: Opacification of the left hemithorax.Heart and mediastinum: Normal heart size. Unremarkable mediastinal contours.Osseous structures: No acute abnormality.Other: None. IMPRESSION: Opacification of the left hemithorax Signed: Paige Seay Verified Date/Time: 01/30/2021 13:43:36 Reading Location: [facility] Radiology Reading Room [id number] 13:40:45 Test Item Value Reference Range Interpretation Comments MAGNESIUM (BEAKER) (test code = 1.7 mg/dL 1.6-2.6 627) Electric Motor Tester Assembler ID - CRISTOFER [id number] 13:40:45 Test Item Value Reference Range Interpretation Comments PHOSPHORUS (BEAKER) (test code = 3.4 mg/dL 2.3-4.7 604) Electric Motor Tester Assembler ID - CRISTOFER MCOMPREHENSIVE METABOLIC [id number] 13:40:44 Test Item Value Reference Range Interpretation [...] S NOT APPLICABLE FOR DIALYSIS PATIEN TS. Electric Motor Tester Assembler ID - CRISTOFER MPOCT-GLUCOSE [id number] 13:33:47 Test Item Value Reference Range Interpretation Comments POC-GLUCOSE METER 205 mg/dL 70-110 H : TESTED A T [facility] 6720 (BEAKER) (test code = DIONI [place], 1538) [address]: Electric Motor Tester Assembler/Techni bobby ID = [id number] for Filomena davila (contract)Atuumn [id number] 13:28:40 Test Item Value Reference Range Interpretation Comments PARTIAL THROMBOPLASTIN TIME 29.8 seconds 22.5-36.0 (BEAKER) (test code = 760) PROTHROMBIN [id number] 13:28:00 Test Item Value Reference Range Interpretation Comments PROTIME (BEAKER) 14.7 seconds 11.9-14.2 H (test code = 759) INR (BEAKER) (test 1.17 See_Comment [Automat ed message] code = 370) The system Bleachers generated this result transmitted ref erence range: <=5.90. The reference range was not used to int erpret this result as normal/abnormal . RECOMMENDED COUMADIN/WARFARIN INR THERAPY RANGESSTANDARD DOSE: 2.0 - 3.0 Includes: PROPHYLAXIS for venous thrombosis, systemic embolization; TREATMENT for venous thrombosis and/or pulmonary embolus.HIGH RISK: Target INR is 2.5-3.5 for patients with mechanical heart valves.LACTIC ACID, [id number] 13:17:37 Test Item Value Reference Range Interpretation Comments LACTATE BLOOD VENOUS (2) (BEAKER) 1.51 mmol/L 0.50-2.20 (test code = 2872) Electric Motor Tester Assembler ID - CRISTOFER MBLOOD GAS, [id number] 12:52:12 Test Item Value Reference Range Interpretation [...] (test code = 1819) 95.0 BLOOD GAS, [id number] 12:52:11 Test Item Value Reference Range Interpretation [...] FIO2 (BEAKER) (test code = 1819) 95.0 Notes Date/Time Note Provider Source 2021-02-01 17:05:23-00:00 [facility] OPERATIVE/PROCEDURE REPORT VASU ESPINAL FACILITY: [facility] Billing #: [id number] Room: [address] [place] [address] MR #: [id number] : 1960 DATE OF PROCEDURE: 02/01/2021 SURGEON: Jorge Hinton MD PREOPERATIVE DIAGNOSES: 1. Left fibropurulent empyema. 2. Altered mental status. 3. Sepsis. 4. Insulin-dependent diabetes. POSTOPERATIVE DIAGNOSES: 1. Left fibropurulent empyema. 2. Altered mental status. 3. Sepsis. 4. Insulin-dependent diabetes. PROCEDURES: 1. Flexible bronchoscopy. 2. Left thoracoscopic total pulmonary decorticat ion. 3. Left thoracoscopic partial parietal pleurecto my. MILL ROLL REWINDER: MIREYA Larson COMPLICATIONS: None. ESTIMATED BLOOD LOSS: 150 mL. SPECIMENS: 1. Left pleural effusion to Microbiology. 2. Left pleural exudate to Microbiology. 3. Left visceral pleura to Permanent Pathology. INDICATIONS: Mr. Espinal is a 61-year-old gentle man, who was admitted to the hospital with signs of sepsis, l oculated left pleural effusion, and altered mental status. He had thoracentesis that demonstrated gram-positive co cci in the left pleural fluid and a CT scan that showed a very l arge pleural effusion that was loculated and complex. He had an echocardiogram that was essentially normal. I di scussed this case with his sister, who was a healthcare proxy yesterday and my recommendation for left pulmonary decorticati on. We discussed the rationale, indications, expectatio ns and the risks and benefits. I spoke to the patient about this as well; however, again his mental status was somewhat al tered. The above operation was advised and accepted. PROCEDURE IN DETAIL: The patient was placed supi ne on the operating room table. After induction of general anesthesia with a double-lumen endotracheal tube, a thoroug h safety pause was completed by all members of the operating ro om team. He was then timed for his broad-spectrum antibiotic s. He was receiving prophylactic anticoagulation in the spital. Flexible bronchoscopy was performed through each lumen of the double-lumen tube, which revealed normal anatomy of the trachea, bilateral mainstem, bilateral lobar, bi lateral segmental bronchi of the right upper lobe, right middle lobe, right lower lobe, left upper lobe, and left lowe r lobe. There were no endoluminal lesions or secretions. The p atient was placed in the right lateral decubitus position w ith the left side up. The left chest was prepped and draped i n the usual sterile fashion. A three-incision VATS explorati on was undertaken. Each incision was 2 cm in length. Th e 1st was made. It was placed in the 9th interspace anteri or to the anterior axillary line . We divided the skin wit h a blade and the intercostal muscle off the tenth r ib and just over a liter of seropurulent fluid was suctioned free. A sample was sent for Microbiology. Camera was inserted. There was clear evidence of fibropurulent empyem a of the entire left lung. The entire parietal pleura was covere d in a hard gelatinous in parts fibrous rind. Under direct f luoroscopic vision, we placed two additional incisions using identical dissection techniques, one was placed in the sev enth interspace posterior axillary line, one was placed in sixth interspace anterior axillary line. Using these three incisions, the remaining fluid was removed with suction and the fibropurulent material was removed with ring forceps. This fibropurulent exudate was als o sent for Microbiology. The upper lobe and lower lobe were adhesed to th e chest wall of the diaphragm and hilum. These adhesions were ge ntly taken down with gentle and blunt dissection using a ri ng forceps and suction phosphoric acid operator. The phrenic nerve was protect ed from injury at all times. We the lingula from the overlying pericardium. We the upper lobe and low er lobe from each other by dissecting the fissure and removin g the fibropurulent material to the fissure. Total visceral decortication was performed by re moving the saw fibrous rind from the entirety of the upper lobe and lower lobe as well, this included the basila r segments of the lower lobe. The entire left lung was decorti cated. We performed a partial parietal pleurectomy to r emove the diseased portion of the parietal pleura posterio rly, this was a thickened area of parietal pleura that was essen tially falling off the chest wall. The chest was irrigated with 6 L of saline, whic h was suctioned free. Hemostasis was assured. A 28-Cymro straig ht chest tube was placed posteriorly and apically. A 24-Cymro Pascual was placed along the diaphragm and a 24-Cymro Pascual was placed anteriorly and laterally. The upper and lower lo be were seen to completely inflate and completely filled the left pleural CT cavity. The port sites were closed in 3-4 layers in usual fashion. I, Dr. Jorge Hinton, attending physician was prese nt and participated in all portions of the case. I spok e to Lizet by phone and I spoke to his other sister, Hal valencia link the consultation in the hospital after surgery. JAYDE/PHONG /[id number]
[2022-08-01] MEDS ORDERED: PROMETHAZINE 25 MG TABLET ONE (00:37)
[2022-08-01] MEDS ORDERED: cloNIDine HCL 0.1 MG TAB ONE (00:37)
[2022-08-01] MEDS ORDERED: HYDROCODONE/APAP 10/325 TAB ONE (00:37)
[2022-08-01] MEDS ORDERED: IBUPROFEN 400 MG TAB ONE (00:38)
[2022-08-01 00:48] LABS: Protime INR 0.9
[2022-08-01 00:51] LABS: Absolute Lymphocytes (CBC) 2.4 K/uL (0.7-4.9); Hematocrit 41.3 % (39.6-49.0); Lymphocytes % 38.4 % (15.3-44.8); MCV 94.6 fL (80-100); MPV 8.4 fL (7.6-11.3); RBC Red Blood Cell Count 4.37 M/uL (4.33-5.43)
[2022-08-01 01:01] LABS: Albumin 3.5 g/dL (3.4-5.0); Bilirubin Direct 0.1 mg/dL (0-0.2); Bilirubin Indirect, Calculated 0.4 mg/dL (0.2-0.8); Bilirubin Total 0.5 mg/dL (0.2-1.0); Potassium 3.9 mEq/L (3.5-5.1); Protein, Total 8.1 g/dL (6.4-8.2); Troponin High Sensitivity 16.9 pg/mL (<58.9)
--- NOTE | 2022-08-01 03:19 | ER ---
Nurse's Notes [facility] Name: Lincoln Espinal Age: 62 yrs Sex: Male : 1960 Arrival Date: 07/31/2022 Time: 23:41 Bed 15 Private MD: Diagnosis: Renovascular hypertension;Acute left flank pain, right complex renal cyst, poorly controlled hypertension. Presentation: 07/31 23:59 Chief complaint: Patient states: I had been on lisinopril for years and a month ago my kd3 doctor said i had kidney issues so he took me off of my lisinopril and put me on valsartan. My blood pressure just kept going up and up so i stopped taking that and took some of my old lisinopril but my blood pressure is still too high. Coronavirus screen: Vaccine status: Patient reports receiving the 2nd dose of the covid vaccine. Ebola Screen: No symptoms or risks identified at this time. Initial Sepsis Screen: Does the patient meet any 2 criteria? No. Patient's initial sepsis screen is negative. Does the patient have a suspected source of infection? No. Patient's initial sepsis screen is negative. Risk Assessment: Do you want to hurt yourself or someone else? Patient reports no desire to harm self or others. Onset of symptoms was August 01, 2022. 23:59 Method Of Arrival: Ambulatory kd3 23:59 Acuity: KULDIP 3 kd3 Triage Assessment: 08/01 00:03 General: Appears uncomfortable, Behavior is calm, cooperative. Pain: Complains of pain kd3 in headache. Historical: - PMHx: 00:03 Diabetes - IDDM; Hepatitis; Hypertension; kd3 - PSHx: 00:03 Tonsillectomy; kd3 - Immunization history:: Adult Immunizations up to date. - Social history:: Smoking status: Patient denies any tobacco usage or history of. - Family history:: not pertinent. Screenin:44 [facility] ED Fall Risk Assessment (Adult) History of falling in the last 3 months, vc1 including since admission No falls in past 3 months (0 pts) Confusion or Disorientation No (0 pts) Intoxicated or Sedated No (0 pts) Impaired Gait No (0 pts) Mobility Assist Device Used No (0 pt) Altered Elimination No (0 pt) Score/Fall Risk Level 0 - 2 = Low Risk Oriented to surroundings, Maintained a safe environment, Educated pt \\T\\ family on fall prevention, incl call for assistance when getting out of bed. Abuse screen: Denies threats or abuse. Nutritional screening: No deficits noted. Tuberculosis screening: No symptoms or risk factors identified. Assessment: 00:45 General: Appears in no apparent distress. uncomfortable, obese, Behavior is calm, vc1 cooperative, appropriate for age. Pain: Complains of pain in "headache". Neuro: Level of Consciousness is awake, alert, obeys commands, Oriented to person, place, time, situation, Appropriate for age. Cardiovascular: No deficits noted. Cardiovascular: Denies chest pain, lightheadedness, palpitations, shortness of breath. Respiratory: Airway is patent Respiratory effort is even, unlabored, Respiratory pattern is regular, symmetrical. GI: No deficits noted. No signs and/or symptoms were reported involving the gastrointestinal system. : No deficits noted. No signs and/or symptoms were reported regarding the genitourinary system. EENT: No deficits noted. No signs and/or symptoms were reported regarding the EENT system. Derm: No deficits noted. No signs and/or symptoms reported regarding the dermatologic system. Musculoskeletal: Reports pain in posterior aspect of left lateral abdomen. 01:00 General: Appears uncomfortable, Behavior is calm, cooperative. Neuro: Level of kd3 Consciousness is awake, alert, obeys commands, Oriented to person, place, time, situation, Appropriate for age. Cardiovascular: Patient's skin is warm and dry. Respiratory: Airway is patent Trachea midline Respiratory effort is even, unlabored, Respiratory pattern is regular, symmetrical. 02:58 Reassessment: Patient and/or family updated on plan of care and expected duration. Pain kd3 level reassessed. Patient is alert, oriented x 3, equal unlabored respirations, skin warm/dry/pink. Patient states feeling better. Patient states symptoms have improved. Vital Signs: 07/31 23:59 BP 188 / 110; Pulse 90; Resp 16; Temp 98.5(O); Pulse Ox 95% on R/A; Weight 95.25 kg; kd3 Height 5 ft. 10 in. ; 08/01 00:56 BP 148 / 106; Pulse 89; Resp 16; Pulse Ox 94% on R/A; kd3 01:59 BP 136 / 97; Pulse 82; Resp 15; Pulse Ox 95% on R/A; kd3 02:57 BP 113 / 86; Pulse 82; Resp 18; Pulse Ox 94% on R/A; kd3 07/31 23:59 Body Mass Index 30.13 (95.25 kg, 177.8 cm) kd3 ED Course: 07/31 23:42 Patient arrived in ED. ag3 08/01 00:00 Trevin Dumont MD is Attending Physician. sp4 00:03 Triage completed. kd3 00:03 Arm band placed on right wrist. kd3 00:08 Deonna Islas, RN is Primary Nurse. vc1 00:23 Radiology exam delayed due to lab results not completed at this time. IV insertion eh4 attempt and/or patient not having appropriate IV at this time. 00:23 Basic Metabolic Panel Sent. vc1 00:23 CBC with Diff Sent. vc1 00:24 LFT's Sent. vc1 00:24 NT PRO-BNP Sent. vc1 00:24 PT-INR Sent. vc1 00:24 Troponin HS Sent. vc1 00:24 Inserted saline lock: 22 gauge in right forearm, using aseptic technique. Blood vc1 collected. 00:44 Patient has correct armband on for positive identification. Bed in low position. Call vc1 light in reach. Client placed on continuous cardiac and pulse oximetry monitoring. NIBP monitoring applied. 00:47 XRAY Chest (1 view) In Process Unspecified. EDMS 01:35 CT Abd/Pelvis - IV Contrast Only In Process Unspecified. EDMS 02:58 Primary Nurse role handed off by Deonna Islas RN kd3 02:58 Yumiko Reed, CAROLA is Primary Nurse. kd3 03:11 No provider procedures requiring assistance completed. ll3 03:18 Stephane Ferreira MD is Referral Physician. sp4 03:34 IV discontinued, intact, bleeding controlled, No redness/swelling at site. Pressure ll3 dressing applied. Administered Medications: 00:32 Drug: [place] PO 10 mg-325 mg 1 tabs Route: PO; vc1 03:10 Follow up: Response: No adverse reaction; Marked relief of symptoms ll3 00:32 Drug: Promethazine PO 25 mg Route: PO; vc1 03:10 Follow up: Response: No adverse reaction ll3 00:32 Drug: cloNIDine PO 0.1 mg Route: PO; vc1 03:10 Follow up: Response: No adverse reaction; Marked relief of symptoms ll3 03:11 Follow up: Response: Blood pressure is lowered ll3 00:32 Drug: Ibuprofen PO 800 mg Route: PO; vc1 03:11 Follow up: Response: No adverse reaction; Marked relief of symptoms ll3 Medication: 00:45 VIS not applicable for this client. vc1 Outcome: 03:19 Discharge ordered by . sp4 03:34 Discharged to home ambulatory. ll3 03:34 Condition: stable 03:34 Discharge instructions given to patient, Instructed on discharge instructions, follow up and referral plans. medication usage, Demonstrated understanding of instructions, follow-up care, medications, Prescriptions given X 5 03:35 Patient left the ED. ll3 Signatures: Dispatcher [employer] Julia Boogie Earle Grey RN RN ll3 Yumiko Reed RN RN kd3 Deonna Islas RN RN vc1 [place] [address] Trevin Dumont MD MD sp4
--- NOTE | 2022-08-01 03:20 | EDPHYS ---
Physician Documentation [facility] Name: Lincoln Espinal Age: 62 yrs Sex: Male : 1960 Arrival Date: 07/31/2022 Time: 23:41 Bed 15 Private MD: ED Physician Trevin Dumont HPI: 08/01 00:00 This 62 yrs old Male presents to ER via Unassigned with complaints of High sp4 Blood Pressure. 03:11 Patient is a 62-year-old male with history of poorly controlled hypertension also sp4 history of right renal lesion presents with control for elevated blood pressure and left flank pain. Patient at home takes lisinopril 20 mg once a day, metoprolol extended release 50 mg daily, metformin 500 mg twice daily, and insulin Novolin. Patient states that his blood pressure was in excess of 180 systolic which prompted him to visit the emergency room today.. . Historical: - PMHx: 00:03 Diabetes - IDDM; Hepatitis; Hypertension; kd3 - PSHx: 00:03 Tonsillectomy; kd3 - Immunization history:: Adult Immunizations up to date. - Social history:: Smoking status: Patient denies any tobacco usage or history of. - Family history:: not pertinent. ROS: 03:11 Constitutional: Negative for fever, chills, and weight loss, positive for elevated sp4 blood pressure and left flank pain. Eyes: Negative for injury, pain, redness, and discharge, ENT: Negative for injury, pain, and discharge, Neck: Negative for injury, pain, and swelling, Cardiovascular: Negative for chest pain, palpitations, and edema, Respiratory: Negative for shortness of breath, cough, wheezing, and pleuritic chest pain, Abdomen/GI: Negative for abdominal pain, nausea, vomiting, diarrhea, and constipation, positive for left flank pain Back: Negative for injury and pain, : Negative for injury, bleeding, discharge, and swelling, MS/Extremity: Negative for injury and deformity, Skin: Negative for injury, rash, and discoloration, Neuro: Negative for headache, weakness, numbness, tingling, and seizure, Psych: Negative for depression, anxiety, Allergy/Immunology: Negative for hives, rash, and allergies Endocrine: Negative for neck swelling, polydipsia, polyuria, polyphagia, and weight changes Hematologic/Lymphatic: Negative for swollen nodes, abnormal bleeding, and unusual bruising Exam: 03:11 Constitutional: This is a well developed, well nourished patient who is awake, alert, sp4 and in no acute distress. Overweight male anxious appearing. Head/Face: Normocephalic, atraumatic. Eyes: Pupils equal round and reactive to light, extra-ocular motions intact. Lids and lashes normal. Conjunctiva and sclera are not injected. Cornea within normal limits. Periorbital areas with no swelling, redness, or edema. ENT: Nares patent. No nasal discharge, no septal abnormalities noted. Tympanic membranes are normal and external auditory canals are clear. Oropharynx with no redness, swelling, or masses, exudates, or evidence of obstruction, uvula midline. Mucous membranes moist. Neck: Trachea midline, no thyromegaly or masses palpated, and no cervical lymphadenopathy. Supple, full range of motion without nuchal rigidity, or vertebral point tenderness. Chest/axilla: Normal chest wall appearance and motion. Nontender with no deformity. No lesions are appreciated. Cardiovascular: Regular rate and rhythm with a normal S1 and S2. No gallops, murmurs, or rubs. Normal PMI, no JVD. No pulse deficits. Respiratory: Lungs have equal breath sounds bilaterally, clear to auscultation and percussion. No rales, rhonchi or wheezes noted. No increased work of breathing, no retractions or nasal flaring. Abdomen/GI: Soft, non-tender, with normal bowel sounds. No distension or tympany. No guarding or rebound. No evidence of tenderness throughout. Back: No spinal tenderness. No costovertebral tenderness. Skin: Warm, dry with normal turgor. Normal color with no rashes, no lesions, and no evidence of cellulitis. MS/ Extremity: Pulses equal, no cyanosis. Neurovascular intact. Full, normal range of motion. Neuro: Awake and alert, GCS 15, oriented to person, place, time, and situation. Cranial nerves II-XII grossly intact. Motor strength 5/5 in all extremities. Sensory grossly intact. Psych: Awake, alert, with orientation to person, place and time. Behavior, mood, and affect are within normal limits 03:11 ECG was reviewed by the Attending Physician. EKG time 0032, is sinus rhythm at the rate of 88, first-degree AV block, otherwise unremarkable EKG. No ectopy Vital Signs: 07/31 23:59 BP 188 / 110; Pulse 90; Resp 16; Temp 98.5(O); Pulse Ox 95% on R/A; Weight 95.25 kg; kd3 Height 5 ft. 10 in. ; 08/01 00:56 BP 148 / 106; Pulse 89; Resp 16; Pulse Ox 94% on R/A; kd3 01:59 BP 136 / 97; Pulse 82; Resp 15; Pulse Ox 95% on R/A; kd3 02:57 BP 113 / 86; Pulse 82; Resp 18; Pulse Ox 94% on R/A; kd3 07/31 23:59 Body Mass Index 30.13 (95.25 kg, 177.8 cm) kd3 MDM: 00:01 Patient medically screened. sp4 03:11 Differential diagnosis: hypertensive crisis, Malignant HTN, CVA. Data reviewed: vital sp4 signs, nurses notes, old medical records, lab test result(s), EKG, radiologic studies, CT scan, plain films. ED course: PROCEDURE: CTAbdomen and Pelvis With Intravenous Contrast CLINICAL INDICATION: The patient is 62 years old and is Male; left flank pain [facility] MAIN TECHNIQUE: Axial computed tomography images of the abdomen and pelvis with intravenous contrast. Sagittal and coronal reformatted images were created and reviewed. This CT exam was performed using one or more of the following dose reduction techniques: automated exposure control, adjustment of the mA and/or kV according to patient size, and/or use of iterative reconstruction technique. COMPARISON: 01/15/2022 CT chest abdomen pelvis with contrast FINDINGS: LUNG BASES: Unremarkable. No mass. No consolidation. PLEURAL SPACE: Trace left-sided pleural effusion versus pleural thickening, new from reference exam. ABDOMEN: LIVER: Unremarkable. No mass. GALLBLADDER AND BILE DUCTS: Unremarkable. No calcified stones. No ductal dilation. PANCREAS: Unremarkable. No mass. No ductal dilation. SPLEEN: Unremarkable. No splenomegaly. ADRENALS: Unremarkable. No mass. KIDNEYS AND URETERS: Peripherally hyperattenuating exophytic cystic focus in the superior pole of the right kidney, decreased in size compared to reference exam (previously up to 2.2 cm, now up to 1.7 cm), most consistent with a minimally complex renal cyst. No hydronephrosis. STOMACH AND BOWEL: Unremarkable. No obstruction. No mucosal thickening. PELVIS: APPENDIX: No findings to suggest acute appendicitis. BLADDER: Unremarkable. No mass. REPRODUCTIVE: Mild prostatomegaly. ABDOMEN and PELVIS: INTRAPERITONEAL SPACE: Unremarkable. No free air. No significant fluid collection. BONES/JOINTS: Multilevel spondylosis and degenerative disc disease, greatest at the L4-5 level, with no acute osseous abnormality. Remote nondisplaced fracture of the right 11th rib. Multilevel degenerative neuroforaminal narrowing, moderate to severe at the bilateral L5-S1 levels. No dislocation. SOFT TISSUES: Unremarkable. VASCULATURE: Mild calcified atherosclerosis of the abdominal aorta and iliofemoral vasculature without aneurysmal dilatation. LYMPH NODES: Unremarkable. No enlarged lymph nodes. IMPRESSION: 1. Peripherally hyperattenuating exophytic cystic focus in the superior pole of the right kidney, decreased in size compared to reference exam (previously up to 2.2 cm, now up to 1.7 cm), most consistent with a minimally complex renal cyst. No dedicated imaging follow-up recommended. 2. Trace left-sided pleural effusion versus pleural thickening, new from reference exam. 3. No acute abnormality within the abdomen or pelvis. 4. Mild prostatomegaly. Electronically signed by: Matti Winslow. ED course: EXAM: XR Chest, 1 View CLINICAL HISTORY: The patient is 62 years old and is Male; CHEST PAIN TECHNIQUE: Frontal view of the chest. COMPARISON: No relevant prior studies available. FINDINGS: LUNGS: Unremarkable. No consolidation. PLEURAL SPACE: Unremarkable. No pneumothorax. HEART: Unremarkable. No cardiomegaly. MEDIASTINUM: Unremarkable. BONES/JOINTS: Unremarkable. UPPER ABDOMEN: Unremarkable as visualized. IMPRESSION: No acute cardiopulmonary process. 08/01 00:01 Order name: Basic Metabolic Panel; Complete Time: 03:03 4 08/01 00:01 Order name: CBC with Diff; Complete Time: 03:03 4 08/01 00:01 Order name: LFT's; Complete Time: 03:03 4 08/01 00:01 Order name: NT PRO-BNP; Complete Time: 03:03 4 08/01 00:01 Order name: PT-INR; Complete Time: 03:03 4 08/01 00:01 Order name: Troponin HS; Complete Time: 03:03 4 08/01 00:50 Order name: Glucose, Ancillary Testing; Complete Time: 03:03 EDMS 08/01 00:01 Order name: XRAY Chest (1 view) sp4 08/01 00:18 Order name: CT Abd/Pelvis - IV Contrast Only sp4 08/01 00:01 Order name: EKG; Complete Time: 00:02 sp4 08/01 00:01 Order name: Cardiac monitoring; Complete Time: 00:39 sp4 08/01 00:01 Order name: EKG - Nurse/Tech; Complete Time: 00:39 sp4 08/01 00:01 Order name: IV Saline Lock; Complete Time: 00:23 sp4 08/01 00:01 Order name: Labs collected and sent; Complete Time: 00:23 sp4 08/01 00:01 Order name: O2 Per Protocol; Complete Time: : sp4 08/01 00:01 Order name: O2 Sat Monitoring; Complete Time: : sp4 EC:11 Rate is 88 beats/min. Rhythm is regular, Normal Sinus Rhythm. QRS [place] is Normal. SD sp4 interval is prolonged. QRS interval is normal. QT interval is normal. No Q waves. No ST changes noted. Clinical impression: No evidence of ischemia. Interpreted by me. Administered Medications: 00:32 Drug: [place] PO 10 mg-325 mg 1 tabs Route: PO; vc1 03:10 Follow up: Response: No adverse reaction; Marked relief of symptoms ll3 00:32 Drug: Promethazine PO 25 mg Route: PO; vc1 03:10 Follow up: Response: No adverse reaction ll3 00:32 Drug: cloNIDine PO 0.1 mg Route: PO; vc1 03:10 Follow up: Response: No adverse reaction; Marked relief of symptoms ll3 03:11 Follow up: Response: Blood pressure is lowered ll3 00:32 Drug: Ibuprofen PO 800 mg Route: PO; vc1 03:11 Follow up: Response: No adverse reaction; Marked relief of symptoms ll3 Disposition Summary: 08/01/22 03:19 Discharge Ordered Location: Home sp4 Problem: new sp4 Symptoms: have improved sp4 Condition: Stable sp4 Diagnosis - Renovascular hypertension sp4 - Acute left flank pain, right complex renal cyst, poorly controlled hypertension. sp4 Followup: sp4 - With: Stephane Ferreira MD - When: 7 - 10 days - Reason: Recheck today's complaints Discharge Instructions: - Discharge Summary Sheet sp4 - Hypertension, Adult sp4 Prescriptions: - clonidine HCl 0.1 mg Oral tablet - take 1 tablet by ORAL route every 8 hours PRN SBP > 160; 60 tablet; Refills: sp4 0, Product Selection Permitted - metoprolol succinate 50 mg Oral Tablet, Extended Release 24 hr - take 1 tablet by ORAL route daily; 30 tablet; Refills: 0, Product Selection sp4 Permitted - Ibuprofen 600 mg Oral Tablet - take 1 tablet by ORAL route every 6 hours As needed take with food; 30 tablet; sp4 Refills: 0, Product Selection Permitted - Lisinopril 20 mg Oral Tablet - take 1 tablet by ORAL route once daily; 30 tablet; Refills: 0, Product sp4 Selection Permitted - Tramadol 50 mg Oral Tablet - take 1 tablet by ORAL route every 8 hours as needed; 12 tablet; Refills: 0, sp4 Product Selection Permitted Signatures: Dispatcher [employer] Yumiko Moran RN RN kd3 Deonna Islas RN RN vc1 Trevin Dumont MD MD sp4 Earle Quiroz RN ll3
[2022-08-01 04:00] VITALS: TEMP 98.5
[2022-08-01 04:13] VITALS: BP 113/86; O2SAT 94
--- NOTE | 2022-08-01 14:23 | RAD REPORT ---
EXAM DESCRIPTION: RAD - Chest Single View - 08/01/2022 12:45 am CLINICAL HISTORY: The patient is 62 years old and is Male; CHEST PAIN TECHNIQUE: Frontal view of the chest. COMPARISON: No relevant prior studies available. FINDINGS: LUNGS: Unremarkable. No consolidation. PLEURAL SPACE: Unremarkable. No pneumothorax. HEART: Unremarkable. No cardiomegaly. MEDIASTINUM: Unremarkable. BONES/JOINTS: Unremarkable. UPPER ABDOMEN: Unremarkable as visualized. IMPRESSION: No acute cardiopulmonary process. Electronically signed by: Aida Mcintosh MD 08/01/2022 12:56 AM CDT Due to temporary technical issues with the PACS/Fluency reporting system, reports are being signed by the in house radiologists without review as a courtesy to insure prompt reporting. The interpreting radiologist is fully responsible for the content of the report.
--- NOTE | 2022-08-01 14:47 | RAD REPORT ---
EXAM DESCRIPTION: CT - Abdomen Pelvis W Contrast - 08/01/2022 5:56 am CLINICAL HISTORY: The patient is 62 years old and is Male; left flank pain [facility] MAIN TECHNIQUE: Axial computed tomography images of the abdomen and pelvis with intravenous contrast. S agittal and coronal reformatted images were created and reviewed. This CT exam was performed using one or more of the following dose reduction techniques: automated exposure control, adjustment of t he mA and/or kV according to patient size, and/or use of iterative reconstruction technique. COMPARISON: 01/15/2022 CT chest abdomen pelvis with contrast FINDINGS: LUNG BASES: Unremarkable. No mass. No consolidation. PLEURAL SPACE: Trace left-sided pleural effusion versus pleural thickening, new from reference exam . ABDOMEN: LIVER: Unremarkable. No mass. GALLBLADDER AND BILE DUCTS: Unremarkable. No calcified stones. No ductal dilation. PANCREAS: Unremarkable. No mass. No ductal dilation. SPLEEN: Unremarkable. No splenomegaly. ADRENALS: Unremarkable. No mass. KIDNEYS AND URETERS: Peripherally hyperattenuating exophytic cystic focus in the superior pole of t he right kidney, decreased in size compared to reference exam (previously up to 2.2 cm, now up to 1.7 cm), most consistent with a minimally complex renal cyst. No hydronephrosis. STOMACH AND BOWEL: Unremarkable. No obstruction. No mucosal thickening. PELVIS: APPENDIX: No findings to suggest acute appendicitis. BLADDER: Unremarkable. No mass. REPRODUCTIVE: Mild prostatomegaly. ABDOMEN and PELVIS: INTRAPERITONEAL SPACE: Unremarkable. No free air. No significant fluid collection. BONES/JOINTS: Multilevel spondylosis and degenerative disc disease, greatest at the L4-5 level, wit h no acute osseous abnormality. Remote nondisplaced fracture of the right 11th rib. Multilevel degenerative neuroforaminal narrowing, moderate to severe at the bilateral L5-S1 l evels. No dislocation. SOFT TISSUES: Unremarkable. VASCULATURE: Mild calcified atherosclerosis of the abdominal aorta and iliofemoral vasculature with out aneurysmal dilatation. LYMPH NODES: Unremarkable. No enlarged lymph nodes. IMPRESSION: 1. Peripherally hyperattenuating exophytic cystic focus in the superior pole of the ri ght kidney, decreased in size compared to reference exam (previously up to 2.2 cm, now up to 1.7 cm), most consistent with a minimally complex renal cyst. No dedicated imaging follow-up recommended. 2. Trace left-sided pleural effusion versus pleural thickening, new from reference exam. 3. No acute abnormality within the abdomen or pelvis. 4. Mild prostatomegaly. Electronically signed by: Matti Winslow MD 08/01/2022 2:04 AM CDT Due to temporary technical issues with the PACS/Fluency reporting system, reports are being signed by the in house radiologists without review as a courtesy to insure prompt reporting. The interpreting radiologist is fully responsible for the content of the report.
--- NOTE | 2022-08-01 17:40 | EKG ---
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
== END 2022-08-01 03:35 | disposition home or self-care (01) ==
LOC: ER 23:41
DX: I15.0 Renovascular hypertension (principal); R10.9 Unspecified abdominal pain; N28.1 Cyst of kidney, acquired
CPT/HCPCS: 36415; 71045; 74177; 80048; 80076; 82947; 83880; 84484; 85025; 85610; 93005; 99284; Q0169; Q9967

== ENCOUNTER 2023-11-17 13:14 | Emergency (ER) | payer OTHER, SELFPAY ==
--- NOTE | 2023-11-17 14:51 | RAD REPORT ---
EXAMINATION: CT HEAD WITHOUT CONTRAST CT CERVICAL SPINE WITHOUT CONTRAST CLINICAL INDICATION: Male, 63 years old. ams/dizzy/shoulder pain TECHNIQUE: Axial CT images from the skull base to the vertex without intravenous contrast. Axial CT i mages through the cervical spine were obtained without intravenous contrast. Sagittal and coronal reformatted images were created from the data set. Coronal and sagittal reformatted images were creat ed from the data set. One or more of the following dose reduction techniques were used: Automated exposure control, adjustment of the mA and/or kV according to patient size, and/or iterative reconstr uction. Unless otherwise specified, incidental findings do not require dedicated imaging follow-up. [id number]. COMPARISON: No prior exam. FINDINGS: Head: INTRACRANIAL: No acute intracranial hemorrhage. No hydrocephalus. No mass effect or midline shift. No significant white matter disease. VASCULATURE: No visualized abnormalities in the arteries or dural venous sinuses. SCALP/SKULL: No significant soft tissue or osseous abnormalities. SINUSES: Mucosal thickening in the left maxillary sinus. Cervical spine: ALIGNMENT: The cervical spine has normal alignment without scoliosis or spondylolisthesis. BONE: Vertebral body heights are maintained. No aggressive osseous lesions. DEGENERATIVE CHANGES: Multilevel cervical spondylosis with varying degrees of neural foraminal narrow ing. This is most pronounced at C6-7 where there is moderate to severe bilateral neural foraminal narrowing. Neural foraminal narrowing is less pronounced but present at the C5-6 level bilaterally. T here is likely at least mild to moderate central spinal stenosis at the C5-6 and C6-7 levels. SOFT TISSUE: No significant abnormalities in the soft tissue of the neck. The visualized lung apices are clear. IMPRESSION: No acute intracranial abnormality. No acute fracture or traumatic malalignment of the cervical spine.
--- NOTE | 2023-11-17 14:55 | RAD REPORT ---
EXAMINATION: ONE VIEW CHEST XR CLINICAL INDICATION: Male, 63 years old.ams TECHNIQUE: 1 View, AP supine, X-ray of the chest was performed. [id number]. COMPARISON: 08/01/2022 FINDINGS: Lungs and pleura: Clear lungs. No effusion. Heart and mediastinum: Normal heart size. Unremarkable mediastinal contours. Osseous structures: No acute abnormality. Tubes/lines: None Other: None. IMPRESSION: No acute intrathoracic abnormality.
[2023-11-17 15:05] LABS: Absolute Basophils 0.1 K/uL (0-0.5); Absolute Eosinophils 0.3 K/uL (0-0.5); Absolute Monocytes 0.7 K/uL (0.1-1.3); Absolute Neutrophil 3.3 K/uL (1.8-8.0); Basophils % 1.4 % (0-1.3); Eosinophils % 4.2 % (0-4.4); Hematocrit 40.5 % (39.6-49.0); Hemoglobin 13.5 g/dL (13.6-17.9); Lymphocytes % 30.9 % (15.3-44.8); MCH 30.5 pg (27.0-35.0); MCHC 33.4 g/dL (32.0-36.0); MCV 91.1 fL (80-100); MPV 6.8 fL (7.6-11.3); Monocytes % 11.6 % (3.3-12.3); Neutrophils % 51.9 % (41.7-73.7); Platelets 416 thou/uL (152-406); RBC Red Blood Cell Count 4.45 M/uL (4.33-5.43); Red Cell Distribution Width 14.2 % (12.1-15.2)
[2023-11-17 15:08] LABS: PT Prothrombin Time 10.5 SECONDS (9.4-12.5); Protime INR 0.94
[2023-11-17 15:25] LABS: ALT/SGPT 43 U/L (16-61); AST/SGOT 28 U/L (15-37); Alkaline Phosphatase 87 U/L (45-117); Anion Gap 9.2 mEq/L (5.0-15.0); BUN Blood Urea Nitrogen 18 mg/dL (7-18); Bicarbonate 27 mEq/L (21-32); Bilirubin Direct < 0.2 mg/dL (0-0.2); Bilirubin Indirect, Calculated 0.1 mg/dL (0.2-0.8); Bilirubin Total 0.3 mg/dL (0.2-1.0); Glomerular Filtration Rate 66 ml/min (=/>90); Glucose Level 107 mg/dL (74-106); Magnesium 1.9 mg/dL (1.6-2.4); NT PRO-BNP 126 pg/mL (<125); Potassium 4.2 mEq/L (3.5-5.1); Sodium Level 134 mEq/L (136-145); Troponin High Sensitivity 8.4 pg/mL (<58.9)
--- NOTE | 2023-11-17 15:34 | ER ---
Nurse's Notes [facility] Name: Lincoln Espinal Age: 63 yrs Sex: Male : 1960 Arrival Date: 11/17/2023 Time: 13:14 Bed 19 Private MD: Diagnosis: Vertigo/dizziness Presentation: 11/16 13:39 Chief complaint: Patient states: Feeling off balance and motor skill problems onset a cm10 few weeks ago. PT states that today it became worse. Pt ambulatory with steady gait. Pt also reports right shoulder pain onset 2-3 months ago. Coronavirus screen: Client denies travel out of the [place] in the last 14 days. Ebola Screen: Patient denies travel to an Ebola-affected area in the 21 days before illness onset. No symptoms or risks identified at this time. Initial Sepsis Screen: Does the patient meet any 2 criteria? No. Patient's initial sepsis screen is negative. Does the patient have a suspected source of infection? No. Patient's initial sepsis screen is negative. Risk Assessment: Do you want to hurt yourself or someone else? Patient reports no desire to harm self or others. Onset of symptoms was November 17, 2023. 13:39 Method Of Arrival: Ambulatory cm10 13:39 Acuity: KULDIP 3 cm10 Triage Assessment: 13:41 General: Appears in no apparent distress. comfortable, Behavior is calm, cooperative. cm10 Neuro: No deficits noted. Level of Consciousness is awake, alert, obeys commands, Oriented to person, place, time, situation, Appropriate for age. Respiratory: No deficits noted. Airway is patent Respiratory effort is even, unlabored, Respiratory pattern is regular, symmetrical. Historical: - Allergies: 13:40 No Known Allergies; cm10 - PMHx: 13:40 Diabetes - IDDM; Hepatitis; Hypertension; cm10 - PSHx: 13:40 Tonsillectomy; cm10 - Immunization history:: Adult Immunizations up to date. - Infectious Disease History:: Denies. - Social history:: Smoking status: Patient denies any tobacco usage or history of. Screenin:01 [facility] ED Fall Risk Assessment (Adult) History of falling in the last 3 months, kc6 including since admission No falls in past 3 months (0 pts) Confusion or Disorientation No (0 pts) Intoxicated or Sedated No (0 pts) Impaired Gait No (0 pts) Mobility Assist Device Used No (0 pt) Altered Elimination No (0 pt) Score/Fall Risk Level 0 - 2 = Low Risk Oriented to surroundings. Abuse screen: Denies threats or abuse. Denies injuries from another. Nutritional screening: No deficits noted. Tuberculosis screening: No symptoms or risk factors identified. Assessment: 15:02 General: Appears in no apparent distress. comfortable, well groomed, well developed, kc6 Behavior is calm, cooperative, appropriate for age. Pain: Complains of pain in right arm. Neuro: Level of Consciousness is awake, alert, obeys commands, Oriented to person, place, time, situation, Appropriate for age Pantographer are equal bilaterally Moves all extremities. Full function Gait is steady, Speech is normal, Facial symmetry appears normal, Pupils are PERRLA, Intact Babinski is positive Reports dizziness. Cardiovascular: Capillary refill < 3 seconds. Respiratory: Airway is patent Trachea midline Respiratory effort is even, unlabored, Respiratory pattern is regular, symmetrical. GI: No signs and/or symptoms were reported involving the gastrointestinal system. : No signs and/or symptoms were reported regarding the genitourinary system. EENT: No signs and/or symptoms were reported regarding the EENT system. Derm: No signs and/or symptoms reported regarding the dermatologic system. Skin is intact, is healthy with good turgor, Skin is pink, warm \T\ dry. Musculoskeletal: No signs and/or symptoms reported regarding the musculoskeletal system. Circulation, motion, and sensation intact. Capillary refill < 3 seconds, Range of motion: intact in all extremities. Vital Signs: 13:39 BP 145 / 82; Pulse 74; Resp 16; Temp 98.2; Pulse Ox 99% on R/A; Weight 91.63 kg (R); cm10 Height 5 ft. 10 in. ; Pain 7/10; 15:02 BP 151 / 92; Pulse 62; Resp 18 S; Pulse Ox 100% on R/A; kc6 13:39 Body Mass Index 28.98 (91.63 kg, 177.8 cm) cm10 13:39 Pain Scale: Adult cm10 ED Course: 13:21 Patient arrived in ED. sj2 13:34 Vanessa Omalley MD is Attending Physician. sp3 13:40 Triage completed. cm10 13:41 Arm band placed on Patient placed in an exam room, on a stretcher. cm10 14:12 Any Mabry, RN is Primary Nurse. kc6 14:32 CT Head C Spine In Process Unspecified. EDMS 14:37 XRAY Chest (1 view) In Process Unspecified. EDMS 15:01 Patient has correct armband on for positive identification. Bed in low position. Call kc6 light in reach. Side rails up X 1. monitoring analyst on. Pulse ox on. NIBP on. Door closed. Noise minimized. Lights dimmed. Pillow given. 15:01 Inserted saline lock: 20 gauge in right antecubital area, using aseptic technique. kc6 Blood collected. Flushed with 10 mL NS. Patient maintains SpO2 saturation greater than 95% on room air. 15:34 Shivam Lewis MD is Referral Physician. sp3 15:58 No provider procedures requiring assistance completed. IV discontinued, intact, kc6 bleeding controlled, No redness/swelling at site. Pressure dressing applied. Administered Medications: No medications were administered Medication: 15:58 VIS not applicable for this client. kc6 Outcome: 15:33 Discharge ordered by . sp3 15:58 Discharged to home ambulatory, kc6 15:58 Condition: good 15:58 Discharge instructions given to patient, Instructed on discharge instructions, follow up and referral plans. Demonstrated understanding of instructions, follow-up care, 15:59 Patient left the ED. kc6 Signatures: Dispatcher [employer] Vanessa Avilez MD MD sp3 Any Mabry, RN RN kc6 Norma Gonzalez RN RN cm10 Pradip Espinoza 2
--- NOTE | 2023-11-17 15:34 | EDPHYS ---
Physician Documentation [facility] Name: Lincoln Espinal Age: 63 yrs Sex: Male : 1960 Arrival Date: 11/17/2023 Time: 13:14 Bed 19 Private MD: ED Physician Vanessa Omalley HPI: 11/16 15:29 This 63 yrs old Male presents to ER via Ambulatory with complaints of sp3 BALANCE/EQUILLIBRIUM OFF-MOTOR SKILL ISSUES. 15:29 63-year-old male with history of diabetes, hepatitis, hypertension presents with sp3 2-month history of "being off balance" and "just being off". Patient went to his PCP who started him on meclizine which helped initially but now is not helping as much. He denies any fever, head injury, focal motor deficit, neck pain, back pain, chest pain, shortness of breath, abdominal pain, nausea, vomiting, diarrhea, syncope, near syncope, rash, known sick contacts, prolonged immobilization, or any other signs or symptoms on ROS at this time.. Historical: - Allergies: 13:40 No Known Allergies; cm10 - PMHx: 13:40 Diabetes - IDDM; Hepatitis; Hypertension; cm10 - PSHx: 13:40 Tonsillectomy; cm10 - Immunization history:: Adult Immunizations up to date. - Infectious Disease History:: Denies. - Social history:: Smoking status: Patient denies any tobacco usage or history of. ROS: 15:31 Constitutional: Negative for fever, chills, and weight loss, Eyes: Negative for injury, sp3 pain, redness, and discharge, ENT: Negative for injury, pain, and discharge, Neck: Negative for injury, pain, and swelling, Cardiovascular: Negative for chest pain, palpitations, and edema, Respiratory: Negative for shortness of breath, cough, wheezing, and pleuritic chest pain, Abdomen/GI: Negative for abdominal pain, nausea, vomiting, diarrhea, and constipation, Back: Negative for injury and pain, : Negative for injury, bleeding, discharge, and swelling, MS/Extremity: Negative for injury and deformity, Skin: Negative for injury, rash, and discoloration, Psych: Negative for depression, anxiety, suicide ideation, homicidal ideation, and hallucinations, Allergy/Immunology: Negative for hives, rash, and allergies, Endocrine: Negative for neck swelling, polydipsia, polyuria, polyphagia, and marked weight changes, Hematologic/Lymphatic: Negative for swollen nodes, abnormal bleeding, and unusual bruising, 15:31 All other systems are negative, Exam: 15:32 Constitutional: This is a well developed, well nourished patient who is awake, alert, sp3 and in no acute distress. Head/Face: Normocephalic, atraumatic. Eyes: Pupils equal round and reactive to light, extra-ocular motions intact. Lids and lashes normal. Conjunctiva and sclera are non-icteric and not injected. Cornea within normal limits. Periorbital areas with no swelling, redness, or edema. ENT: Nares patent. No nasal discharge, no septal abnormalities noted. External auditory canals are clear. Oropharynx with no redness, swelling, or masses, exudates, or evidence of obstruction, uvula midline. Mucous membranes moist. Neck: Trachea midline, no thyromegaly or masses palpated, and no cervical lymphadenopathy. Supple, full range of motion without nuchal rigidity, or vertebral point tenderness. No Meningismus. Chest/axilla: Normal chest wall appearance and motion. Nontender with no deformity. No lesions are appreciated. Cardiovascular: Regular rate and rhythm with a normal S1 and S2. No gallops, murmurs, or rubs. Normal PMI, no JVD. No pulse deficits. Respiratory: Lungs have equal breath sounds bilaterally, clear to auscultation and percussion. No rales, rhonchi or wheezes noted. No increased work of breathing, no retractions or nasal flaring. Abdomen/GI: Soft, non-tender, with normal bowel sounds. No distension or tympany. No guarding or rebound. No evidence of tenderness throughout. Back: No spinal tenderness. No costovertebral tenderness. Full range of motion. Skin: Warm, dry with normal turgor. Normal color with no rashes, no lesions, and no evidence of cellulitis. MS/ Extremity: Pulses equal, no cyanosis. Neurovascular intact. Full, normal range of motion. Neuro: Awake and alert, GCS 15, oriented to person, place, time, and situation. Cranial nerves II-XII grossly intact. Motor strength 5/5 in all extremities. Sensory grossly intact. Cerebellar exam normal. Normal gait. Psych: Awake, alert, with orientation to person, place and time. Behavior, mood, and affect are within normal limits. 15:32 ECG was reviewed by the Attending Physician. EKG demonstrates normal sinus rhythm at 60 bpm with first-degree AV block of 2 5 0 ms, leftward axis, poor R wave progression and nonspecific diffuse ST's ST changes without evidence of acute ischemia. Vital Signs: 13:39 BP 145 / 82; Pulse 74; Resp 16; Temp 98.2; Pulse Ox 99% on R/A; Weight 91.63 kg (R); cm10 Height 5 ft. 10 in. ; Pain 7/10; 15:02 BP 151 / 92; Pulse 62; Resp 18 S; Pulse Ox 100% on R/A; kc6 13:39 Body Mass Index 28.98 (91.63 kg, 177.8 cm) cm10 13:39 Pain Scale: Adult cm10 MDM: 13:42 Patient medically screened. sp3 15:32 Data reviewed: vital signs, nurses notes, lab test result(s), EKG, radiologic studies. sp3 ED course: 63-year-old male with vague symptoms neurologic in nature. Vital signs are normal and neurological exam is normal. NIH stroke scale is 0. Patient is ambulating without difficulty. CT scan of the head and C-spine are negative and all laboratory work is also normal. At this time there is no further intervention indicated in the ED. We will discharge patient home with follow-up to Dr. Lewis outpatient and PCP as needed. Clinically I do not believe patient is having a CVA/TIA spectrum event, ACS, sepsis, shock or any other critical process.. 11/16 13:43 Order name: Basic Metabolic Panel; Complete Time: 15:27 sp3 11/16 13:43 Order name: CBC with Diff; Complete Time: 15: sp3 11/16 13:43 Order name: LFT's; Complete Time: 15:27 sp3 11/16 13:43 Order name: Magnesium; Complete Time: 15:27 sp3 11/16 13:43 Order name: NT PRO-BNP; Complete Time: 15:27 sp3 11/16 13:43 Order name: PT-INR; Complete Time: 15:11 sp3 11/16 13:43 Order name: Troponin HS; Complete Time: 15:27 sp3 11/16 15:30 Order name: Glucose, Ancillary Testing; Complete Time: 15:34 EDMS 11/16 13:43 Order name: XRAY Chest (1 view); Complete Time: 15:05 sp3 11/16 13:43 Order name: CT Head C Spine; Complete Time: 15:05 sp3 11/16 13:43 Order name: EKG; Complete Time: 13:44 sp3 11/16 13:43 Order name: Cardiac monitoring; Complete Time: 15:01 sp3 11/16 13:43 Order name: EKG - Nurse/Tech; Complete Time: 15:01 sp3 11/16 13:43 Order name: IV Saline Lock; Complete Time: 15:01 sp3 11/16 13:43 Order name: Labs collected and sent; Complete Time: 15: sp3 11/16 13:43 Order name: O2 Sat Monitoring; Complete Time: 15:01 sp3 Administered Medications: No medications were administered Disposition Summary: 11/17/23 15:33 Discharge Ordered Notes: Location: Home sp3 Condition: Stable sp3 Diagnosis - Vertigo/dizziness sp3 Followup: sp3 - With: Private Physician - When: Upon discharge from the Emergency Department - Reason: Continuance of care Followup: sp3 - With: Shivam Lewis MD - When: Upon discharge from the Emergency Department - Reason: Recheck today's complaints Discharge Instructions: - Discharge Summary Sheet sp3 - Dizziness sp3 Forms: - Medication Reconciliation Form sp3 - Antibiotic Education sp3 - Prescription Opioid Use sp3 - Patient Portal Instructions sp3 - Leadership Thank You Letter sp3 Signatures: Dispatcher [employer] Vanessa Avilez MD MD sp3 Norma Gonzalez, RN RN cm10
[2023-11-17 16:17] VITALS: TEMP 98.2
[2023-11-17 16:19] VITALS: BP 151/92; O2SAT 100
--- NOTE | 2023-11-18 12:28 | EKG ---
Test Date: 2023-11-17 Test Time: 14:51:35 Student Records Specialist: JEFF MEASUREMENT RESULTS: Intervals: Rate: 59 SC: 250 QRSD: 102 QT: 408 QTc: 403 [place]: P: 56 SC: 250 QRS: -72 T: 52 INTERPRETIVE STATEMENTS: Sinus bradycardia with 1st degree AV block Incomplete right bundle branch block Left anterior fascicular block Anterior infarct, age undetermined Abnormal ECG Compared to ECG 08/01/2022 00:32:35 Incomplete right bundle-branch block now present Sinus rhythm no longer present Myocardial infarct finding still present Electronically Signed On 11-18-23 12:26:04 CDT by Campos Ambrose
== END 2023-11-17 15:59 | disposition home or self-care (01) ==
LOC: ER 13:14
DX: R42 Dizziness and giddiness (principal); E11.9 Type 2 diabetes mellitus without complications; I10 Essential (primary) hypertension
CPT/HCPCS: 36415; 70450; 71045; 72125; 80048; 80076; 82947; 83735; 83880; 84484; 85025; 85610; 93005; 99284